=== PATIENT | female | born 1935 | race Caucasian/White ===

== ENCOUNTER → 2017-11-27 11:24 | Outpatient (CLI) | payer MEDICARE, OTHER, SELFPAY ==
[2017-11-27 12:11] LABS: International Normalized Ratio 5.2
== END ==
PROVIDERS: Physician Assistant Medical; Family Provider Internal Medicine; PCP Internal Medicine; Visit Provider Internal Medicine Cardiovascular Disease
DX: I50.21 Acute systolic (congestive) heart failure (principal)
CPT/HCPCS: 36415; 80048; 85610

== ENCOUNTER 2017-11-30 11:38 | Outpatient (RCR) | payer MEDICARE, OTHER, SELFPAY ==
[2017-11-30 12:18] LABS: Anion Gap 6 (5-15); BUN 25 mg/dL (7-18); BUN/Creat Ratio 16.2 RATIO (10-20); Calcium,Total 8.8 mg/dL (8.5-10.1); Chloride 108 mmol/L (98-107); Creatinine, Serum 1.54 mg/dL (0.55-1.02); EST Glomerular Filtration Rate 34 mL/min (>60); Est Glom Filt Rate - Afr Amer 42 mL/min (>60); Glucose 106 mg/dL (70-110); Potassium 3.9 mmol/L (3.5-5.1); Sodium Level 144 mmol/L (136-145)
[2017-11-30 12:29] LABS: International Normalized Ratio 2.6; Prothrombin Time (Protime)PT. 26.9 SECONDS (11.7-14.9)
== END 2017-11-30 11:39 | disposition home or self-care (01) ==
LOC: LAB 11:38
PROVIDERS: Family Provider Internal Medicine; PCP Internal Medicine; Visit Provider Internal Medicine Cardiovascular Disease
DX: I50.9 Heart failure, unspecified (principal); I48.91 Unspecified atrial fibrillation; Z79.01 Long term (current) use of anticoagulants
CPT/HCPCS: 36415; 80048; 85610

== ENCOUNTER → 2017-12-03 12:16 | Outpatient (CLI) | payer MEDICARE, OTHER, SELFPAY ==
[2017-12-03 12:42] VITALS: PULSE 66; PULSE 73; PULSE 74; PULSE 76; PULSE 78; PULSE 79; O2SAT 92; O2SAT 93; O2SAT 95; O2SAT 96; O2SAT 97; O2SAT 98
--- NOTE | 2017-12-04 08:45 | PCM.PSN.6M ---
PSN 6 Minute Walk Test - 6 Minute Walk Test 6 Minute Walk Test: 6 Minute Walk Test PSN:6-Minute Walk Test Start: 12/03/17 12:41 Freq: Status: Active Protocol: RESP.6MINW Document 12/03/17 12:42 FR (Rec: 12/03/17 12:45 FR [id number]) 6 Minute Walk Test Date Performed 12/03/17 Time Performed 12:30 Height 5 ft 2 in Weight: 128 lb Weight in Pounds 128.[address]: Victoria Bautista Assistive device used: None Pre-test Oxygen Delivery Method Room Air Pulse Ox (%) 98 Pulse Rate (60-100 beats/min) 66 1st minute Oxygen Delivery Method Room Air Pulse Ox (%) 96 Pulse Rate (60-100 beats/min) 76 2nd minute Oxygen Delivery Method Room Air Pulse Ox (%) 97 Pulse Rate (60-100 beats/min) 74 3rd minute Oxygen Delivery Method Room Air Pulse Ox (%) 95 Pulse Rate (60-100 beats/min) 78 4th minute Oxygen Delivery Method Room Air Pulse Ox (%) 97 Pulse Rate (60-100 beats/min) 78 5th minute Oxygen Delivery Method Room Air Pulse Ox (%) 92 Pulse Rate (60-100 beats/min) 79 6th minute Oxygen Delivery Method Room Air Pulse Ox (%) 95 Pulse Rate (60-100 beats/min) 79 Dyspnea Rima Scale (0-10) 1 Exertion Rima Scale (6-20) 8 Post-test Oxygen Delivery Method Room Air Pulse Ox (%) 93 Pulse Rate (60-100 beats/min) 73 Full Laps Walked 14 Partial Lap, Number of Tiles Walked 53 Total Distance Walked (ft) 879 - Interpretation Interpretation: The patient ambulated 879 feet over the course of 6 minutes on room air without assistive devices or breaks. Pretesting oxygen saturation was noted to be 98% on room air. With ambulation, the shyann oxygen saturation was 92%. This represents a significant exertional oxygen desaturation. - Recommendations Recommendations: There is no indication for the use of supplemental oxygen at this time. However, close interval follow-up is recommended given the degree of oxygen desaturation noted during this study.
--- NOTE | 2017-12-04 08:48 | WT_ITS ---
PSN 6 Minute Walk Test - 6 Minute Walk Test 6 Minute Walk Test: 6 Minute Walk Test PSN:6-Minute Walk Test Start: 12/03/17 12: 41 Freq: Status: Active Protocol: RESP.6MINW Document 12/03/17 12:42 FR (Rec: 12/03/17 12:45 FR [id number]) 6 Minute Walk Test Date Performed 12/03/17 Time Performed 12:30 Height 5 ft 2 in Weight: 128 lb Weight in Pounds 128.[address]: Victoria Bautista Assistive device used: None Pre-test Oxygen Delivery Method Room Air Pulse Ox (%) 98 Pulse Rate (60-100 beats/min) 66 1st minute Oxygen Delivery Method Room Air Pulse Ox (%) 96 Pulse Rate (60-100 beats/min) 76 2nd minute Oxygen Delivery Method Room Air Pulse Ox (%) 97 Pulse Rate (60-100 beats/min) 74 3rd minute Oxygen Delivery Method Room Air Pulse Ox (%) 95 Pulse Rate (60-100 beats/min) 78 4th minute Oxygen Delivery Method Room Air Pulse Ox (%) 97 Pulse Rate (60-100 beats/min) 78 5th minute Oxygen Delivery Method Room Air Pulse Ox (%) 92 Pulse Rate (60-100 beats/min) 79 6th minute Oxygen Delivery Method Room Air Pulse Ox (%) 95 Pulse Rate (60-100 beats/min) 79 Dyspnea Rima Scale (0-10) 1 Exertion Rima Scale (6-20) 8 Post-test Oxygen Delivery Method Room Air Pulse Ox (%) 93 Pulse Rate (60-100 beats/min) 73 Full Laps Walked 14 Partial Lap, Number of Tiles Walked 53 Total Distance Walked (ft) 879 - Interpretation Interpretation: The patient ambulated 879 feet over the course of 6 minutes on room air without assistive devices or breaks. Pretesting oxygen saturation was noted to be 98% on room air. With ambulation, the shyann oxygen saturation was 92%. This represents a significant exertional oxygen desaturation. - Recommendations Recommendations: There is no indication for the use of supplemental oxygen at this time. However , close interval follow-up is recommended given the degree of oxygen desaturation noted during this study.
== END ==
PROVIDERS: Family Provider Internal Medicine; PCP Internal Medicine; Visit Provider Nurse Practitioner Acute Care
DX: R06.00 Dyspnea, unspecified (principal)
CPT/HCPCS: 94618

== ENCOUNTER → 2017-12-18 07:54 | Outpatient (CLI) | payer MEDICARE, OTHER, SELFPAY ==
--- NOTE | 2017-12-19 07:42 | PFT ---
INTRODUCTION: The patient is an 82-year-old female currently under the care of Victoria Bautista NP that presents for pulmonary function testing secondary to a diagnosis of dyspnea. Respiratory therapy reports that the patient had difficulty reaching and time for the flow volume loop. Bronchodilators were used during testing. INTERPRETATION: Forced expiration spirometry demonstrates no evidence of a large airways obstructive ventilatory defect. There was no significant response to aerosolized bronchodilators, based upon strict ATS criteria. Spirograms are of poor quality and terminate prior to 6 seconds, likely underestimating FVC. Body plethysmography was performed and reveals lung volumes to be within normal limits. Diffusing capacity by single breath CO is mildly reduced at 64% of predicted. IMPRESSION: These pulmonary function studies demonstrate the presence of an isolated mild reduction in diffusing capacity. This could be related to an underlying pulmonary vascular disorder, such as pulmonary hypertension. There are no previous pulmonary function studies available for comparison. Clinical correlation is recommended.
== END ==
PROVIDERS: Family Provider Internal Medicine; PCP Internal Medicine; Visit Provider Nurse Practitioner Acute Care
DX: R06.00 Dyspnea, unspecified (principal)
CPT/HCPCS: 94060; 94726; 94729

== ENCOUNTER → 2017-12-21 13:46 | Outpatient (CLI) | payer MEDICARE, OTHER, SELFPAY ==
--- NOTE | 2017-12-21 14:00 | CT_ITS ---
STUDY: CT CHEST WITHOUT CONTRAST REASON FOR EXAM: Female, [address] of the chest. Breast cancer. RADIATION DOSAGE (If Supplied By Facility): CTDIvol = ( 6.60 ) mGy, DLP = ( 229.12 ) mGycm TECHNIQUE: Transaxial imaging was performed without the administration of intravenous contrast material. Individualized dose optimization techniques were used for this CT. COMPARISON: 10/16/2017. FINDINGS: There has been right mastectomy. In the lungs, there has been marked improvement since previous exam. In fact, there is currently no definite evidence for significant atelectasis infiltrate or effusion. There is some volume loss of the right lung which appears to be related to some fibrosis probably from previous radiation. It is seen primarily along the periphery of the upper to mid right lung. There may be minimal fibrosis in the left apex. There is suggestion of underlying COPD. Normal heart and pericardium. There are calcifications of the coronary arteries. There are multiple small lymph nodes within the mediastinum, which are normal in size and morphology most compatible with reactive lymph hyperplasia. Normal hilar regions. Normal unenhanced pulmonary arteries. Normal aorta arch and descending thoracic aorta. There are multi-level degenerative changes of the thoracic spine. There is a 7 mm nonobstructing right renal stone. CT/Chest without Contrast IMPRESSION: Essentially complete clearing of previously seen pleural effusions, infiltrates and areas of atelectasis. Currently there are some residual radiation changes of the right lung and underlying COPD. Electronically Signed: Jaiden Goetz MD at 8:05 EST , Service support ,
== END ==
PROVIDERS: Family Provider Internal Medicine; PCP Internal Medicine; Visit Provider Nurse Practitioner Acute Care
DX: R93.8 Abnormal findings on diagnostic imaging of other specified body structures (principal)
CPT/HCPCS: 71250

== ENCOUNTER 2017-12-21 14:08 | Outpatient (RCR) | payer MEDICARE, OTHER, SELFPAY ==
[2017-12-07 13:18] LABS: International Normalized Ratio 2.1; Prothrombin Time (Protime)PT. 22.8 SECONDS (11.7-14.9)
[2017-12-07 13:33] LABS: Anion Gap 6 (5-15); BUN 21 mg/dL (7-18); BUN/Creat Ratio 13.2 RATIO (10-20); Calcium,Total 8.5 mg/dL (8.5-10.1); Chloride 107 mmol/L (98-107); Creatinine, Serum 1.59 mg/dL (0.55-1.02); EST Glomerular Filtration Rate 33 mL/min (>60); Est Glom Filt Rate - Afr Amer 40 mL/min (>60); Glucose 100 mg/dL (74-106); Sodium Level 142 mmol/L (136-145)
[2017-12-21 16:34] LABS: Anion Gap 9 (5-15); BUN 24 mg/dL (7-18); BUN/Creat Ratio 13.8 RATIO (10-20); Calcium,Total 8.6 mg/dL (8.5-10.1); Chloride 106 mmol/L (98-107); Creatinine, Serum 1.74 mg/dL (0.55-1.02); EST Glomerular Filtration Rate 30 mL/min (>60); Est Glom Filt Rate - Afr Amer 36 mL/min (>60); Glucose 117 mg/dL (74-106); Potassium 3.8 mmol/L (3.5-5.1); Sodium Level 143 mmol/L (136-145)
[2017-12-21 16:35] LABS: Prothrombin Time (Protime)PT. 34.3 SECONDS (11.7-14.9)
[2017-12-21 16:57] LABS: International Normalized Ratio 3.6
== END 2017-12-21 14:35 | disposition home or self-care (01) ==
LOC: LAB 14:08
PROVIDERS: Physician Assistant Medical; Family Provider Internal Medicine; PCP Internal Medicine; Visit Provider Internal Medicine Cardiovascular Disease
DX: R93.8 Abnormal findings on diagnostic imaging of other specified body structures (principal); I50.9 Heart failure, unspecified; I48.91 Unspecified atrial fibrillation; Z79.01 Long term (current) use of anticoagulants
CPT/HCPCS: 36415; 71250; 80048; 85610

== ENCOUNTER 2018-01-29 13:10 | Outpatient (RCR) | payer MEDICARE, OTHER, SELFPAY ==
[2017-12-31 16:11] LABS: Prothrombin Time (Protime)PT. 31.2 SECONDS (11.7-14.9)
[2018-01-15 11:51] LABS: International Normalized Ratio 1.9; Prothrombin Time (Protime)PT. 21.5 SECONDS (11.7-14.9)
[2018-01-29 15:01] LABS: International Normalized Ratio 2.1; Prothrombin Time (Protime)PT. 23.6 SECONDS (11.7-14.9)
== END 2018-01-29 14:00 | disposition home or self-care (01) ==
LOC: LAB 13:10
PROVIDERS: Family Provider Internal Medicine; PCP Internal Medicine; Visit Provider Internal Medicine Cardiovascular Disease
DX: I50.9 Heart failure, unspecified (principal); R93.8 Abnormal findings on diagnostic imaging of other specified body structures; I48.91 Unspecified atrial fibrillation; Z79.01 Long term (current) use of anticoagulants
CPT/HCPCS: 36415; 85610

== ENCOUNTER → 2018-02-01 16:05 | Outpatient (CLI) | payer MEDICARE, OTHER, SELFPAY | PROVIDERS: Visit Provider Obstetrics & Gynecology | DX: N39.0 Urinary tract infection, site not specified (principal) | CPT/HCPCS: 87086; 87088 ==

== ENCOUNTER 2018-02-15 11:05 | Outpatient (RCR) | payer MEDICARE, OTHER, SELFPAY ==
[2018-02-15 11:21] LABS: Prothrombin Time Fingerstick 25.2 SEC (11.9-14.4)
== END 2018-02-15 12:00 | disposition home or self-care (01) ==
LOC: LAB 11:05
PROVIDERS: Family Provider Internal Medicine; PCP Internal Medicine; Visit Provider Internal Medicine Cardiovascular Disease
DX: I48.91 Unspecified atrial fibrillation (principal); Z79.01 Long term (current) use of anticoagulants
CPT/HCPCS: 36416; 85610

== ENCOUNTER 2018-03-22 16:59 | Emergency (ER) | payer MEDICARE, OTHER, SELFPAY ==
[2018-03-22 17:00] VITALS: BP 125/68; PULSE 62; RESP 16; TEMP 36.7; O2SAT 97; BMI 24.5
--- NOTE | 2018-03-22 17:12 | CT_ITS ---
STUDY: CT CERVICAL SPINE WITHOUT CONTRAST REASON FOR EXAM: Female, 82 years old. Head injury RADIATION DOSAGE (If Supplied By Facility): CTDIvol = ( 14.72 ) mGy, DLP = ( 305.96 ) mGycm TECHNIQUE: High resolution transaxial imaging was performed without contrast material. Sagittal and coronal images were reconstructed. Individualized dose optimization techniques were used for this CT. COMPARISON: None FINDINGS: Normal craniovertebral junction. There are degenerative changes of the anterior atlantoaxial articulation. There are degenerative changes of the odontoid process. Normal cervical lordosis. There is diffuse endplate spondylosis of the cervical spine. There is a 2 mm anterior subluxation of C4 relative to C3 and C5. C2-3: Disc spacing is normal. There are degenerative facet changes on the left. There is mild left foraminal narrowing. There is no central canal stenosis. C3-4: There is severe disc space narrowing. There are mild bilateral hypertrophic facet changes. There is mild bilateral spinal foraminal narrowing. There is no central canal stenosis. C4-5: There are bilateral hypertrophic degenerative facet changes. There is moderately severe disc space narrowing. There is mild bilateral spinal foraminal narrowing. There is no central canal stenosis. C5-6: There is severe disc space narrowing. There are bilateral hypertrophic degenerative facet changes. There is moderately severe bilateral spinal foraminal narrowing. There is no central canal stenosis. C6-7: There is severe disc space narrowing. There are bilateral degenerative facet changes. There is moderately severe bilateral spinal foraminal narrowing. There is no central canal stenosis. C7-T1: Disc spacing is normal. There are mild bilateral degenerative facet changes. There is no central canal or foraminal stenosis. Normal visualized soft tissue structures. CT/Spine Cervical without Contras IMPRESSION: Multilevel degenerative changes, as described above. 2 mm anterior subluxation of C4 relative to C3 and C5. Electronically Signed: Donato Culp MD at 18:06 EDT , Service support ,
--- NOTE | 2018-03-22 17:12 | CT_ITS ---
STUDY: CT BRAIN WITHOUT CONTRAST REASON FOR EXAM: Female, 82 years old. Trauma RADIATION DOSAGE (If Supplied By Facility): CTDIvol = ( 44.99 ) mGy, DLP = ( 779.24 ) mGycm TECHNIQUE: Transaxial CT imaging of the brain was performed without administration of intravenous contrast material. Individualized dose optimization techniques were used for this CT. COMPARISON: Prior study of June 03, 2013 FINDINGS: There is a left frontal scalp hematoma. Normal calvarium. Normal size ventricles and extra-axial spaces for the patient's age. There are areas of decreased attenuation within the white matter tracts of the supratentorial brain, consistent with microvascular disease changes. There is an old lacunar infarct of the right insular lobe. Normal basal ganglia and thalami. Normal brainstem. There is mild cerebellar atrophy. There is no intracranial hemorrhage. There are no findings of an acute ischemic infarction. Normal visualized paranasal sinuses. CT/Brain/Head without Contrast IMPRESSION: 1. Left frontal scalp hematoma. 2. 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 3. Areas of decreased attenuation within the white matter tracts of the supratentorial brain consistent with microvascular disease changes. 4. Mild cerebellar atrophy. 5. There is no intracranial hemorrhage or calvarial fracture. Electronically Signed: Donato Culp MD at 18:16 EDT , Service support ,
[2018-03-22 17:42] VITALS: O2SAT 97
--- NOTE | 2018-03-22 17:45 | ED.RN ---
ABRASION TO LEFT UPPER ARM. NO BLEEDING NOTED.
[2018-03-22 18:35] LABS: International Normalized Ratio 1.6; Prothrombin Time (Protime)PT. 19.2 SECONDS (11.7-14.9)
--- NOTE | 2018-03-22 19:06 | ED.DCSUM_ITS ---
- ER Visit Summary Date of Service: 03/22/18 Chief Complaint: Head injury History of Present Illness: The patient is a 82 F who presents with a head injury. She states that she was carrying a heavy potted plant when she fell in the parking lot. She hit the front left side of her head. She denies any dizziness lightheadedness headache or nausea. She is on warfarin due to a history of atrial fibrillation. She complains of mild pain directly at the site of the head injury rather than headache. She denies any other injuries or any other pain. Physical Examination: Afebrile vitals are normal There is a left forehead hematoma Heart is regular rate and rhythm Lungs are clear Neck is nontender Abdomen soft Active full range of motion ?4 extremities GCS of 15 with no focal or lateralizing neurological deficits Test Results: CT of the head shows a left frontal scalp hematoma and an old lacunar infarct atrophy and chronic changes but no acute intracranial hemorrhage. CT of the cervical spine shows degenerative changes and 2 mm of anterior cervical subluxation at C4. INR 1.6 Emergency Department Course and Treatment: Patient's wound was cleansed and dressed. There is an abrasion over the hematoma but no laceration requiring wound closure. I did speak to radiology regarding the anterior cervical subluxation. This was not felt to be traumatic and is likely related to the associated degenerative changes. She has no cervical tenderness. She was advised on supportive care. She was instructed on specific signs and symptoms to monitor for and conditions under which to return to the emergency department. She was advised to follow-up with her primary care physician and was discharged home. Treatment Plan: [] Disposition: Discharge Impression: Closed head injury This note was generated with [employer] dictation software. It may contain incorrect words, spelling, and punctuation that were not noted in review of the chart prior to signing ED Disposition - Plan for ED Patient: Chief Complaint: Head Injury Referrals: Ben Loomis MD [Primary Care Provider] -
--- NOTE | 2018-03-22 19:06 | ED.DEP ---
ED Disposition - Plan for ED Patient: Chief Complaint: Head Injury Instructions: ED Head Injury Closed Referrals: Ben Loomis MD [Primary Care Provider] -
[2018-03-22 19:28] VITALS: PULSE 60; RESP 18; O2SAT 97
== END 2018-03-22 19:29 | disposition home or self-care (01) ==
PROVIDERS: Emergency Provider Emergency Medicine; Family Provider Internal Medicine; PCP Internal Medicine
DX: S00.03XA Contusion of scalp, initial encounter (principal); W18.30XA Fall on same level, unspecified, initial encounter; Y93.01 Activity, walking, marching and hiking; Y92.481 Parking lot as the place of occurrence of the external cause; I48.91 Unspecified atrial fibrillation; I11.0 Hypertensive heart disease with heart failure; I50.9 Heart failure, unspecified; G47.33 Obstructive sleep apnea (adult) (pediatric); Z85.3 Personal history of malignant neoplasm of breast; Z79.82 Long term (current) use of aspirin; Z79.01 Long term (current) use of anticoagulants; Z79.899 Other long term (current) drug therapy
CPT/HCPCS: 70450; 72125; 85610; 99284

== ENCOUNTER → 2018-03-26 13:38 | Outpatient (CLI) | payer MEDICARE, OTHER, SELFPAY ==
--- NOTE | 2018-03-26 13:40 | ECHOD_ITS ---
Reason For Study: Dyspnea/SOB Procedure This was a 2D Doppler, Color Flow transthoracic echocardiogram. Exam performed in department. Left Ventricle Moderately dilated left ventricle. Severe global left ventricular systolic dysfunction. The estimated ejection fraction is 25 %. There is evidence of diastolic dysfunction. Mid-Anterior : Hypokinetic. Mid-Lateral : Hypokinetic. Mid-Posterior: Hypokinetic. Mid-Inferior: Hypokinetic. Mid- inferoseptal : Hypokinetic. Mid-anteroseptal : Hypokinetic. [place] : Hypokinetic. Right Ventricle Normal RV size. Normal systolic function. Atria Normal left atrium. Normal right atrium. No doppler evidence for ASD. Mitral Valve There is no mitral annular calcification. Mild diffuse mitral valve thickening. Moderate (2+) mitral valve insufficiency. Tricuspid Valve Normal tricuspid valve. Moderate (2+) tricuspid valve insufficiency. Right ventricular systolic pressure estimated to be 45 mmHg. Aortic Valve Trisinus/trileaflet aortic valve. Mild focal aortic valve calcification. Mild-Moderate (1-2+) aortic valve insufficiency. Pulmonic Valve The pulmonic valve is not well visualized. Trivial pulmonic valve insufficiency. Great Vessels Normal sized aortic root. Calcified aortic root. Pericardium/Pleural No pericardial effusion. MMode/2D Measurements & Calculations LVIDd: 5.7 cm IVSd: 1.1 cm Ao root diam: 3.3 cm LVIDs: 4.7 cm LVPWd: 0.87 cm LA dimension: 4.0 cm RVDd: 3.8 cm FS: 18.2 % LAV(MOD-bp): 43.5 ml LA A4 area: 11.7 cm2 RA A4 area: 15.8 cm2 LAV(MOD-bp) Indexed: 27.1 ml/m2 LAV(MOD-sp2): 48.8 ml LAV(MOD-sp4): 28.5 ml Doppler Measurements & Calculations MV E max eliel: 88.4 cm/sec Lat Peak E' Eliel: 3.0 cm/sec Med Peak E' Eliel: 3.4 cm/sec MV A max eliel: 65.8 cm/sec E/E' lat: 29.8 E/E' med: 26.4 MV E/A: 1.3 Ao V2 max: 119.3 cm/sec AI max eliel: 353.1 cm/sec LV V1 max: 73.2 cm/sec Ao max P.7 mmHg AI max P.9 mmHg LV V1 max P.1 mmHg Ao V2 mean: 83.0 cm/sec AI dec slope: 177.3 cm/sec2 Ao mean P.0 mmHg AI P1/2t: 583.2 msec Ao V2 VTI: 26.2 cm PA V2 max: 71.6 cm/sec TR max eliel: 322.9 cm/sec TR max P.7 mmHg Interpretation Summary Moderately dilated left ventricle. Severe global left ventricular systolic dysfunction. The estimated ejection fraction is 25 %. Mild diffuse mitral valve thickening. Moderate (2+) mitral valve insufficiency. Moderate (2+) tricuspid valve insufficiency. Mild focal aortic valve calcification. Mild-Moderate (1-2+) aortic valve insufficiency. Trivial pulmonic valve insufficiency. Calcified aortic root. Right ventricular systolic pressure estimated to be 45 mmHg. There is evidence of diastolic dysfunction. Ordering Physician: Gary Bullard Referring Physician: Ben Loomis M.D. Performed By: Katharina Mancia, FELICITAS, RVT
== END ==
PROVIDERS: Family Provider Internal Medicine; PCP Internal Medicine; Visit Provider Internal Medicine Cardiovascular Disease
DX: R06.00 Dyspnea, unspecified (principal)
CPT/HCPCS: 93306

== ENCOUNTER 2018-03-31 11:23 | Outpatient (RCR) | payer MEDICARE, OTHER, SELFPAY ==
[2018-03-11 11:26] LABS: Prothrombin Time Fingerstick 19.5 SEC (11.9-14.4)
[2018-03-31 11:36] LABS: Prothrombin Time Fingerstick 21.2 SEC (11.9-14.4)
== END 2018-03-31 12:00 | disposition home or self-care (01) ==
LOC: LAB 11:23
PROVIDERS: Family Provider Internal Medicine; PCP Internal Medicine; Visit Provider Internal Medicine Cardiovascular Disease
DX: I48.91 Unspecified atrial fibrillation (principal); Z79.01 Long term (current) use of anticoagulants
CPT/HCPCS: 36416; 85610

== ENCOUNTER 2018-04-22 12:17 | Outpatient (RCR) | payer MEDICARE, OTHER, SELFPAY | END 2018-04-22 13:00 | disposition home or self-care (01) | LOC: LAB 12:17 | PROVIDERS: Family Provider Internal Medicine; PCP Internal Medicine; Visit Provider Internal Medicine Cardiovascular Disease | DX: I48.91 Unspecified atrial fibrillation (principal); Z79.01 Long term (current) use of anticoagulants | CPT/HCPCS: 36416; 85610 ==

== ENCOUNTER 2018-05-28 13:37 | Outpatient (RCR) | payer MEDICARE, OTHER, SELFPAY ==
[2018-05-10 14:36] LABS: Prothrombin Time Fingerstick 30.4 SEC (11.9-14.4)
[2018-05-28 14:06] LABS: Prothrombin Time Fingerstick 19.6 SEC (11.9-14.4)
== END 2018-05-28 15:00 | disposition home or self-care (01) ==
LOC: LAB 13:37
PROVIDERS: Family Provider Internal Medicine; PCP Internal Medicine; Visit Provider Internal Medicine Cardiovascular Disease
DX: I48.91 Unspecified atrial fibrillation (principal); Z79.01 Long term (current) use of anticoagulants
CPT/HCPCS: 36416; 85610

== ENCOUNTER 2018-06-25 13:19 | Outpatient (RCR) | payer MEDICARE, OTHER, SELFPAY ==
[2018-06-25 13:30] LABS: Prothrombin Time Fingerstick 28.1 SEC (11.9-14.4)
== END 2018-06-25 15:00 | disposition home or self-care (01) ==
LOC: LAB 13:19
PROVIDERS: Family Provider Internal Medicine; PCP Internal Medicine; Visit Provider Internal Medicine Cardiovascular Disease
DX: I48.91 Unspecified atrial fibrillation (principal); Z79.01 Long term (current) use of anticoagulants
CPT/HCPCS: 36416; 85610

== ENCOUNTER → 2018-07-23 12:01 | Outpatient (CLI) | payer MEDICARE, OTHER, SELFPAY ==
[2018-07-23 13:43] LABS: International Normalized Ratio 2.1; Prothrombin Time (Protime)PT. 23.5 SECONDS (11.7-14.9)
[2018-07-23 14:02] LABS: Anion Gap 6 (5-15); BUN 24 mg/dL (7-18); Calcium,Total 8.9 mg/dL (8.5-10.1); Chloride 107 mmol/L (98-107); Creatinine, Serum 1.72 mg/dL (0.55-1.02); EST Glomerular Filtration Rate 30 mL/min (>60); Est Glom Filt Rate - Afr Amer 37 mL/min (>60); Glucose 90 mg/dL (74-106); Magnesium 2.3 mg/dL (1.6-2.6); Potassium 4.5 mmol/L (3.5-5.1); Sodium Level 141 mmol/L (136-145)
== END ==
PROVIDERS: Family Provider Internal Medicine; PCP Internal Medicine; Visit Provider Internal Medicine Cardiovascular Disease
DX: I50.22 Chronic systolic (congestive) heart failure (principal); I43 Cardiomyopathy in diseases classified elsewhere
CPT/HCPCS: 36415; 80048; 83735; 85610

== ENCOUNTER → 2018-08-13 13:24 | Outpatient (CLI) | payer MEDICARE, OTHER, SELFPAY ==
--- NOTE | 2018-08-13 13:26 | CT_ITS ---
STUDY: CT ABDOMEN AND PELVIS WITHOUT CONTRAST REASON FOR EXAM: Female, 82 years old. Kidney stones RADIATION DOSAGE (If Supplied By Facility): CTDIvol = ( 7.35 ) mGy, DLP = ( 379.91 ) mGycm TECHNIQUE: Transaxial images were obtained from the dome of the diaphragm to the symphysis pubis without oral contrast, and without intravenous contrast. Sagittal and coronal images were reconstructed. Individualized dose optimization techniques were used for this CT. COMPARISON: None. FINDINGS: The lung bases are clear. The liver is normal. No dilated intrahepatic biliary radicles. The gallbladder is normal with no calcifications within it. There is no pericholecystic fluid collection or streakiness The spleen is normal. The pancreas is normal. Both adrenals are normal. A 5.8 mm right upper pole calyceal calculus. An 8.9 and 3.6 mm left calyceal calculi. No renal masses and no perirenal stranding The stomach is normal. There is no bowel distention, acute appendicitis or diverticulitis. No constricting lesions are seen in large bowel. The abdominal wall is intact with no hernias. There is no ascites or any free intraperitoneal air. No indication of epiploic appendagitis The vascular structures in the retroperitoneum are normal. There is no retrocrural, retroperitoneal or mesenteric adenopathy. There is a lumbar scoliosis with convexity to the left with degenerative changes at L3-4. The urinary bladder is normal. The uterus is normal--. There is no inguinal or pelvic adenopathy. There is no inguinal hernia. . CT/Abdomen/Pelvis without Cont IMPRESSION: No acute findings in the abdomen or pelvis. Specifically there is no acute appendicitis or diverticulitis. A 5.8 mm right upper pole calyceal calculus. An 8.9 and 3.6 mm calculi in the left upper and lower poles respectively. A mild lumbar scoliosis with convexity to the left and disc disease at L3-4 Electronically Signed: Jarod Dennis MD at 5:10 EDT Tel , Service support ,
== END ==
PROVIDERS: Family Provider Internal Medicine; PCP Internal Medicine; Referring Provider Urology; Visit Provider Urology
DX: N20.0 Calculus of kidney (principal)
CPT/HCPCS: 74176

== ENCOUNTER 2018-08-26 14:46 | Outpatient (RCR) | payer MEDICARE, OTHER, SELFPAY ==
[2018-08-26 15:06] LABS: Prothrombin Time Fingerstick 28.9 SEC (11.9-14.4)
== END 2018-08-26 16:00 | disposition home or self-care (01) ==
LOC: LAB 14:46
PROVIDERS: Family Provider Internal Medicine; PCP Internal Medicine; Visit Provider Internal Medicine Cardiovascular Disease
DX: I48.91 Unspecified atrial fibrillation (principal); Z79.01 Long term (current) use of anticoagulants
CPT/HCPCS: 36416; 85610

== ENCOUNTER 2018-09-22 11:27 | Outpatient (RCR) | payer MEDICARE, OTHER, SELFPAY ==
[2018-09-22 11:50] LABS: Prothrombin Time Fingerstick 25.3 SEC (11.9-14.4)
== END 2018-10-01 10:37 | disposition home or self-care (01) ==
LOC: LAB 11:27
PROVIDERS: Family Provider Internal Medicine; PCP Internal Medicine; Referring Provider Internal Medicine Cardiovascular Disease; Visit Provider Internal Medicine Cardiovascular Disease
DX: I48.91 Unspecified atrial fibrillation (principal); Z79.01 Long term (current) use of anticoagulants
CPT/HCPCS: 36416; 85610

== ENCOUNTER 2018-10-06 17:21 | Inpatient (IN) | payer MEDICARE, OTHER, SELFPAY ==
[2018-10-06 17:22] VITALS: BP 146/70; PULSE 59; PULSE 79; RESP 16; TEMP 36.7; O2SAT 93; BMI 24.7
--- NOTE | 2018-10-06 17:44 | CT_ITS ---
STUDY: CT BRAIN WITHOUT CONTRAST REASON FOR EXAM: Female, 83 years old. Confusion RADIATION DOSAGE (If Supplied By Facility): CTDIvol = ( 44.99 ) mGy, DLP = ( 745.49 ) mGycm TECHNIQUE: Transaxial CT imaging of the brain was performed without administration of intravenous contrast material. Individualized dose optimization techniques were used for this CT. COMPARISON: 03/22/2018 FINDINGS: Normal soft tissue structures. Normal calvarium. There is mild cerebral atrophy with widening of the extra-axial spaces and ventricular dilatation. There are areas of decreased attenuation within the white matter tracts of the supratentorial brain, consistent with microvascular disease changes. Normal basal ganglia and thalami. Normal brainstem. Normal cerebellum. There is no intracranial hemorrhage. There are no findings of an acute ischemic infarction. Normal visualized paranasal sinuses. CT/Brain/Head without Contrast IMPRESSION: Chronic involutional changes of the brain. Electronically Signed: Devon Pittman MD at 18:24 EST , Service support ,
--- NOTE | 2018-10-06 17:48 | EKG12_ITS ---
Test Reason : CONFUSION Blood Pressure : / mmHG Vent. Rate : 054 BPM Atrial Rate : 055 BPM P-R Int : 000 ms QRS Dur : 162 ms QT Int : 506 ms P-R-T Axes : 000 -47 134 degrees QTc Int : 479 ms Sinus bradycardia Left axis deviation Left bundle branch block Abnormal ECG Confirmed by JOSH PARADA, DAVID ([id number]), video effects editor TRACY MINOR ([id number]) on 10/08/2018 2:38:20 PM Referred By: JULIETH Confirmed By:DAVID MORENO MD
--- NOTE | 2018-10-06 18:09 | RAD_ITS ---
STUDY: X-RAY CHEST REASON FOR EXAM: Female, 83 years old. Confusion TECHNIQUE: PA and lateral views of the chest. COMPARISON: 11/05/2017 FINDINGS: EKG leads overlie the chest The lungs are clear and expanded. There is no demonstrated pleural abnormality. Normal size heart. Normal mediastinum and adithya. Normal visualized pulmonary arteries. Normal visualized aortic arch and descending thoracic aorta. There are diffuse degenerative changes of the visualized thoracic spine. There is degenerative osteoarthritis of the bilateral shoulders. There is no demonstrated abnormality of the visualized soft tissue structures of the upper abdomen. RAD/Chest PA and Lateral IMPRESSION: No acute pulmonary process Electronically Signed: Devon Pittman MD at 18:32 EST , Service support ,
[2018-10-06 18:26] LABS: Absolute Lymphocyte Count 1.11 X10^3/ul (0.83-4.51); Absolute Neutrophil Count 6.2 X10^3/uL (2.0-7.7); Basophil# 0.03 X10^3/uL; Basophil% 0.4 % (0-1); Eosinophil# 0.18 X10^3/uL; Eosinophils% 2.2 % (0-5); Hematocrit 42.4 % (37-47); Hemoglobin 13.9 g/dl (12.0-15.0); Lymphocyte # 1.11 X10^3/ul (4.0); Lymphocyte % 13.6 % (19-41); Mean Corp Hgb Conc 32.8 g/gl (32-36); Mean Corpuscular Hgb 32.6 pg (27.0-32.0); Mean Corpuscular Volume 99.5 fL (81-99); Mean Platelet Vol. 11.9 fl (6.2-12.0); Monocyte# 0.68 X10^3/uL; Monocyte% 8.3 % (0-10); Neutrophil # 6.15 X10^3/uL (2.7-7.7); Neutrophil % 75.4 % (47-70); Platelet Count 199 K/mm3 (150-450); RBC Distribution Width SD 50.2 fl (35.1-43.9); Red Blood Count 4.26 M/mm3 (4.2-5.4); White Blood Count 8.2 K/mm3 (4.4-11.0)
[2018-10-06 18:27] LABS: POSITIVE DIFFERENTIAL NO
[2018-10-06 18:28] LABS: POSITIVE COUNT NO; POSITIVE MORPHOLOGY NO
[2018-10-06 19:24] LABS: Anion Gap 5 (5-15); BUN 27 mg/dL (7-18); BUN/Creat Ratio 15.3 RATIO (10-20); Calcium,Total 8.8 mg/dL (8.5-10.1); Chloride 106 mmol/L (98-107); Creatinine, Serum 1.76 mg/dL (0.55-1.02); EST Glomerular Filtration Rate 30 mL/min (>60); Est Glom Filt Rate - Afr Amer 36 mL/min (>60); Estimated Creatinine Clearance 19.83 ml/min; Glucose 92 mg/dL (74-106); Potassium 4.3 mmol/L (3.5-5.1); Sodium Level 141 mmol/L (136-145)
[2018-10-06 19:25] LABS: Mucous, Urine 0 SEEN /hpf (<or=2+); Red Blood Cells-Urine 0 SEEN /hpf (0-5); Squamous Epithelial Cells - UA 0 SEEN /hpf (5-10)
[2018-10-06 19:56] LABS: Glucose, Dipstick Normal (Normal); Ketone-Dipstick Negative (Negative); Leukocyte Esterase-Dipstick 100 /ul (Negative); Nitrite-Dipstick Positive (Negative); Occult Blood-Urine 10 /ul (Negative); Protein-Dipstick 30 mg/dl (Negative); Urine Bilirubin Dipstick Negative (Negative); Urine Clarity Clear (Clear); Urine Urobilinogen Normal (Normal)
[2018-10-06 20:03] LABS: Color, Urine SEE COMMENT BELOW (Yellow)
[2018-10-06 20:08] VITALS: BP 147/73; PULSE 56; RESP 12; O2SAT 97
[2018-10-06 20:09] LABS: Bacteria RARE /hpf (None Seen); White Blood Cells 0-5 SEEN /hpf (0-5)
[2018-10-06 20:40] LABS: International Normalized Ratio 1.1
--- NOTE | 2018-10-06 20:44 | ED.VISSUMM ---
- ER Visit Summary Date of Service: 10/06/18 Chief Complaint: Confusion History of Present Illness: The patient is a [address] Bullard and Dr. Loomis. reports that she has confusion that began today. States that at 10:00 this morning she was difficult to arouse. He question whether she may have taken an extra dose of oxycodone last night. She is remaining confused throughout the day. He reports that she has a expressive aphasia since 3:00 that has progressively gotten worse. She has never had this previously. Patient has been off her Coumadin for the past 4 days for a dental procedure that is scheduled for tomorrow. She denies any fever or chills. No chest pain, cough, shortness of breath. No abdominal pain, nausea, vomiting, or diarrhea. She has had frequent urination, but no dysuria. No rash or headache. Patient denies weakness. She reports that she has paresthesias to her chin. Physical Examination: Vitals: Stable. Afebrile. General: Well-nourished and well-developed. Head: Normocephalic atraumatic. Neck: Supple, no lymphadenopathy. No JVD. Nontender. Cardiovascular: Regular rate and rhythm. No murmurs. Respiratory: No respiratory distress. Clear to auscultation bilaterally. Abdominal: Soft, nontender, nondistended, normal bowel sounds. No guarding, rebound, or peritoneal signs. Back: Nontender. Extremities: Nontender, no edema. Skin: Normal color, no rash. Neurologic: Alert and oriented ?3. Cranial nerves II through XII are intact. Normal strength and sensation. NIH scale is 1 for an expressive aphasia. Psych: Normal affect. Test Results: EKG is A. fib at 54 with a left bundle branch block. Its unchanged from November of this year. CBC is more for segment neutrophils 75 and lymphocytes 14. Chem-7 is more for BUN of 27 creatinine 1.76. Cath UA shows nitrite positive with rare bacteria. Chest x-ray shows no acute disease. CT brain shows chronic changes. INR is 1.1. Emergency Department Course and Treatment: Patient is not a TPA candidate due to an unclear time frame from this. Also, she is confused and I question whether her expressive aphasia is somewhat from a delirium. Her urine was sent for culture and she was given Cipro IV. Treatment Plan: Patient was discussed with Dr. Amezquita. She will be admitted the hospital for further relation and treatment. Disposition: Admitted in stable condition. Impression: 1. Confusion. 2. Expressive aphasia. 3. Nitrite positive urine. 4. Subtherapeutic INR. 5. Atrial fibrillation. This note was generated with [employer] dictation software. It may contain incorrect words, spelling, and punctuation that were not noted in review of the chart prior to signing ED Disposition - Plan for ED Patient: Chief Complaint: Confusion Referrals: Ben Loomis MD [Primary Care Provider] -
[2018-10-06] MEDS: Ciprofloxacin 400 MG/200 ML BAG 200 MG IV (21:11)
[2018-10-06] MEDS: DiphenhydrAMINE 50 MG/ML Syringe 25 MG IV (22:16)
--- NOTE | 2018-10-06 22:21 | ED.RN ---
REDDENED AREA NOTED ON LFA ABOVE IV SITE, DOES NOT APPEAR RELATED TO IV, IV NOTED TO HAVE GOOD BLOOD RETURN, FLUSHES EASILY. AWARE, CIPRO STOPPED, BENADRYL GIVEN.
[2018-10-06 22:33] VITALS: BMI 25.8
[2018-10-06 22:55] VITALS: PULSE 60
[2018-10-06 23:00] VITALS: PULSE 62; O2SAT 96
--- NOTE | 2018-10-06 23:05 | PCM.HP.STD ---
Problem List (1) Aphasia Status: Acute (2) Altered mental status Status: Acute Qualifiers: Altered mental status type: disorientation Qualified Code(s): R41.0 - Disorientation, unspecified (3) Subtherapeutic international normalized ratio (INR) Status: Acute (4) Cardiomyopathy in diseases classified elsewhere Status: Chronic Comment: last ECHO with a 25% EF (5) Secondary pulmonary arterial hypertension Status: Chronic (6) Nonrheumatic aortic valve insufficiency Status: Chronic (7) Nonrheumatic mitral (valve) insufficiency Status: Chronic (8) Non-rheumatic tricuspid valve insufficiency Status: Chronic (9) Paroxysmal atrial fibrillation Status: Chronic (10) Chronic systolic (congestive) heart failure Status: Chronic (11) Dyspnea Status: Chronic Qualifiers: Dyspnea type: shortness of breath Qualified Code(s): R06.02 - Shortness of breath; R06.00 - Dyspnea, unspecified; R06.01 - Orthopnea (12) Abnormal CT of the chest Status: Chronic (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 (14) Hypertension Status: Chronic Qualifiers: Hypertension type: essential hypertension Qualified Code(s): I10 - Essential (primary) hypertension (15) Central sleep apnea Status: Chronic History of Present Illness Date of Admission: 10/06/18 Chief Complaint: trouble getting her speech out and confusion The patient is a 83 year old F with a PMH of CM with a 25% EF, HTN, PAF, chronic anticoagulation with Warfarin, central sleep apnea, chronic rectal pain, vaginal burning, back pain and R anterior thigh pain who was brought to the ER at [facility] on 10/06/18 with complaints of confusion, somnolence and difficulty getting her words out. She was very sleepy when she awoke this morning and seemed somewhat confused and her thought that perhaps she had taken extra Percocet the preceding night. She takes Percocet twice daily for rectal pain. She also takes Soma at bedtime. As the day progressed she did not improve and in fact she had difficulty with word finding and was disoriented in her own house which is unusual. Her who is a retired technical healthcare consultant tells me that over the past few years her short-term memory has declined. She also has developed some dystonic movements of her hands, upper extremities and face. He states she has never had any seizures. She has seen a few different neurologists and no diagnosis has ever been given. Recently she has had several falls and seems to lose her balance easily. He states her gait has been more broad-based. Vital signs at presentation to the emergency room were temperature 98.1, pulse rate 79, blood pressure 146/70, respiratory rate 16 and she is 93-97% saturated on room air. Hemoglobin is 13.9 but she is somewhat dehydrated. MCV is increased at 99.5 but the RDW was normal. Platelets are normal. Her INR is 1.1 and recently her Coumadin has been held for a dental procedure which was to have been done on 10/07/2018. Electrolytes are within normal limits and the BUN is 27 with a creatinine of 1.76 which is up from 1. To [address] November 07[address] scan of the brain, unenhanced, showed chronic involutional changes only with no acute findings. There is white matter disease present secondary to microvascular disease. Chest x-ray shows no infiltrates, pulmonary vascular congestion or pleural effusions. Past Medical History Past Medical History (Chronic Problems): Chronic Problems (Last Reviewed 07/23/18 @ 11:40 by Gary Bullard MD) 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) last ECHO with a 25% EF Secondary pulmonary arterial hypertension (Chronic) Nonrheumatic aortic valve insufficiency (Chronic) Nonrheumatic mitral (valve) insufficiency (Chronic) Non-rheumatic tricuspid valve insufficiency (Chronic) Paroxysmal atrial fibrillation (Chronic) Chronic systolic (congestive) heart failure (Chronic) Dyspnea (Chronic) Abnormal CT of the chest (Chronic) [facility] (current) use of anticoagulants (Chronic) Hypertension (Chronic) Central sleep apnea (Chronic) Medical History: Medical History (Last Reviewed 10/07/18 @ 01:51 by Caitie Amezquita DO) 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) I43 last ECHO with a 25% EF Secondary pulmonary arterial hypertension (Chronic) I27.21 Nonrheumatic aortic valve insufficiency (Chronic) I35.1 Nonrheumatic mitral (valve) insufficiency (Chronic) I34.0 Non-rheumatic tricuspid valve insufficiency (Chronic) I36.1 Paroxysmal atrial fibrillation (Chronic) I48.0 Chronic systolic (congestive) heart failure (Chronic) I50.22 [facility] (current) use of anticoagulants (Chronic) Z79.01 Hypertension (Chronic) I10 Central sleep apnea (Chronic) G47.31 Anxiety and depression F41.9, F32.9 Joint pain M25.50 Acute systolic CHF (congestive heart failure) (Resolved) I50.21 Atrial fibrillation with RVR (Resolved) I48.91 Breast cancer C50.919 History of breast cancer (Resolved) Z85.3 Rectal pain (Resolved) K62.89 Joint pain (Inactive) M25.50 Allergies Penicillins [PCN] Allergy (Verified 03/05/18 10:33) Rash Home Medications: Ambulatory Orders Medication Instructions Recorded Calcium Citrate/Vitamin D3 315 ea PO TIDCM 01/05/17 [Calcium Citrate - Vit D Caplet] Carvedilol [Coreg (Beta Kori)] 6.25 mg PO BID 01/05/17 Celecoxib [Celebrex] 200 mg PO DAILY 01/05/17 Cholecalciferol (Vitamin D3) 2,000 unit PO DAILY 01/05/17 [Vitamin D3] Paroxetine Mesylate [Brisdelle] 7.5 mg PO DAILY 01/05/17 multivitamin tablet 1 tab PO QDAY 03/05/18 psyllium husk (with sugar) 3.4 2 tsp PO DAILY g 03/05/18 gram/12 gram oral powder warfarin 2.5 mg tablet 1.25 mg PO DAILY 03/31/18 potassium chloride ER 10 mEq 10 meq PO DAILYCM #90 tab 07/21/18 tablet,extended release(part/cryst) oxycodone 5 mg tablet 5 mg PO BID tab 07/23/18 furosemide 40 mg tablet 40 mg PO SUTUTHSA #60 tab 09/27/18 Albuterol Sulfate [Ventolin Hfa] 1 puff INHALATION TID 10/06/18 Amiodarone HCl [Cordarone] 200 mg PO DAILY 10/06/18 Aspirin E.C. [Ecotrin] 81 mg PO DAILY 10/06/18 Carisoprodol 350 mg PO QHS 10/06/18 Dymista 1 puff NASAL BID 10/06/18 Magnesium Oxide [Mag-Ox 400] 400 mg PO QHS 10/06/18 [place]/Sod Phos/Mblue/Hyoscy 1 tab PO 4X/DAY 10/06/18 [Urogesic-Blue Tablet] Surgical History: Surgical History (Last Reviewed 10/07/18 @ 01:51 by ELIGIO Odell H/O right mastectomy Z90.11 History of right mastectomy (Resolved) Z98.890, Z90.11 Surgical History: appendectomy, - - Lumpectomy, tubal ligation, right breast mass biopsy, modified right radical mastectomy, cataract extraction, lens implantation Psychiatric History: No pertinent psych hx 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 Denies: Head Aches, Sinus Congestion, Sinus Drainage, Sore Throat Cardiovascular: Denies: Chest Pain, Light Headedness, Palpitations, Syncope Respiratory: Denies: Cough, Shortness of breath at rest, Sputum production Gastrointestinal: Denies: Abdominal Pain, Nausea, Vomiting Genitourinary: Denies: Dysuria Gynecological: Denies: Vaginal discharge Musculoskeletal: Reports: Back Pain, Leg Pain - pain in the R thigh. Denies: Joint Pain, Joint Tenderness, Neck Pain Skin: Denies: Rash, Wounds Neurological: Reports: Balance problems, Change in Speech - trouble getting her words out and then loses her train of thought in the middle of a sentence, Slurred speech, - - has had a few falls recently. Denies: Focal weakness, Numbness, Tingling, Tremor, Seizures Psychiatric: Denies: Anxiety, Depression, Homicidal Ideations, Suicidal Ideations Endocrine: Denies: Change in Body Habitus Hematologic/ Lymphatic: Denies: Easy Bruising, Easy Bleeding, Hx of blood clot VTE Information - Inpt Only VTE Present on Admission: No VTE Mechan Device Prophylaxis: SCD's VTE Pharm Prophylaxis ordered?: No Reason prophylaxis not ordered:: Medical Contraindication - possible CVA - awaiting the results of MRI Patient Problems: Active and Suspected Problems (Last Reviewed 07/23/18 @ 11:40 by Gary Bullard MD) Aphasia (Acute) Altered mental status (Acute) Subtherapeutic international normalized ratio (INR) (Acute) - Physical Exam General: Alert, Oriented x3, Cooperative, No apparent distress HEENT: Atraumatic, PERRLA, EOMI, Normocephalic Oral: Dry Mucosa Neck: Supple, No JVD, Negative Carotid Bruits, No Nodes, No Nuchal Rigidity, Trachea Midline Lungs: Clear to auscultation, Normal air movement, No rhonchi, No wheeze, No rales Cardiovascular: No murmurs, Bradycardic, Irregular Rate, No rub noted, No Gallop, - - distant hear sounds Abdomen: Bowel Sounds Present, Soft, Non Tender, Non-Distended, - - mildly tympanic Extremities: No clubbing, No cyanosis, No edema Skin: No rashes, No breakdown Musculoskeletal: Arthritic Changes Neurological: Cranial nerves II-XII grossly intact, Neuro grossly intact, Motor Exam 5/5 strength throughout, - - she has dystonic movements of the face and the UE's Psych/Mental Status: Appropriate Vital Signs Temp Pulse Resp BP Pulse Ox 98.1 F 56 L 12 147/73 H 97 10/06/18 17:22 10/06/18 20:08 10/06/18 20:08 10/06/18 20:08 10/06/18 20:08 Oxygen Delivery Method Room Air Weight: 141 lb 1.533 oz Body Mass Index (BMI) 25.8 Laboratory Tests Past 24 Hrs 10/06/18 10/06/18 10/06/18 18:00 18:00 18:00 WBC 8.2 RBC 4.26 Hgb 13.9 Hct 42.4 MCV 99.5 H MCH 32.6 H MCHC 32.8 RDW 14.0 RDW Differential 50.2 H Plt Count 199 MPV 11.9 Immature Gran % (Auto) 0.100 Neut % (Auto) 75.4 H Lymph % (Auto) 13.6 L [place] % (Auto) 8.3 Eos % (Auto) 2.2 Baso % (Auto) 0.4 Absolute Neuts (auto) 6.2 Absolute Lymphs (auto) 1.11 Total Counted Not Reportable PT Cancelled INR Cancelled Sodium Cancelled Potassium Cancelled Chloride Cancelled Carbon Dioxide Cancelled Anion Gap Cancelled BUN Cancelled Creatinine Cancelled Estim Creat Clear Calc Cancelled Est GFR (MDRD) Af Amer Cancelled Est GFR (MDRD) Non-Af Cancelled BUN/Creatinine Ratio Cancelled Glucose Cancelled Calcium Cancelled Urine Color Urine Clarity Urine pH Ur Specific [place] Urine Protein Urine Glucose (UA) Urine Ketones Urine Occult Blood Urine Nitrite Urine Bilirubin Urine Urobilinogen Ur Leukocyte Esterase Urine RBC Urine WBC Ur Squamous Epith Cells Urine Bacteria Urine Mucus 10/06/18 10/06/18 10/06/18 19:00 19:00 19:15 WBC RBC Hgb Hct MCV MCH MCHC RDW RDW Differential Plt Count MPV Immature Gran % (Auto) Neut % (Auto) Lymph % (Auto) [place] % (Auto) Eos % (Auto) Baso % (Auto) Absolute Neuts (auto) Absolute Lymphs (auto) Total Counted PT Cancelled INR Cancelled Sodium 141 Potassium 4.3 Chloride 106 Carbon Dioxide 30.0 Anion Gap 5 BUN 27 H Creatinine 1.76 H Estim Creat Clear Calc 19.83 Est GFR (MDRD) Af Amer 36 L Est GFR (MDRD) Non-Af 30 L BUN/Creatinine Ratio 15.3 Glucose 92 Calcium 8.8 Urine Color SEE COMMENT BELOW Urine Clarity Clear Urine pH 7.0 Ur Specific [place] 1.010 Urine Protein 30 H Urine Glucose (UA) Normal Urine Ketones Negative Urine Occult Blood 10 H Urine Nitrite Positive H Urine Bilirubin Negative Urine Urobilinogen Normal Ur Leukocyte Esterase 100 H Urine RBC 0 SEEN Urine WBC 0-5 SEEN Ur Squamous Epith Cells 0 SEEN Urine Bacteria RARE Urine Mucus 0 SEEN 10/06/18 19:52 WBC RBC Hgb Hct MCV MCH MCHC RDW RDW Differential Plt Count MPV Immature Gran % (Auto) Neut % (Auto) Lymph % (Auto) [place] % (Auto) Eos % (Auto) Baso % (Auto) Absolute Neuts (auto) Absolute Lymphs (auto) Total Counted PT 14.0 INR 1.1 Sodium Potassium Chloride Carbon Dioxide Anion Gap BUN Creatinine Estim Creat Clear Calc Est GFR (MDRD) Af Amer Est GFR (MDRD) Non-Af BUN/Creatinine Ratio Glucose Calcium Urine Color Urine Clarity Urine pH Ur Specific [place] Urine Protein Urine Glucose (UA) Urine Ketones Urine Occult Blood Urine Nitrite Urine Bilirubin Urine Urobilinogen Ur Leukocyte Esterase Urine RBC Urine WBC Ur Squamous Epith Cells Urine Bacteria Urine Mucus Assessment/Plan All Active Problems (Last Reviewed 07/23/18 @ 11:40 by Gary Bullard MD) Aphasia (Acute) Altered mental status (Acute) Subtherapeutic international normalized ratio (INR) (Acute) Acute systolic CHF (congestive heart failure) (Resolved) Atrial fibrillation with RVR (Resolved) History of breast cancer (Resolved) History of right mastectomy (Resolved) Rectal pain (Resolved) Impressions 1. aphasia and altered mental status - secondary to CVA ( due to subtherapeutic INR?) or to toxic encephalopathy from Soma + Percocet and possible accidental OD? states her short term memory has declined in the past few years and perhaps he should be taking over her meds. she had a box of pills in the pocket of her pants and she took it out in the ER and was preparing to take a hand full of pills when I stopped her. 2. CM with a 25% EF 3. PAF 4. Sub therapeutic INR - stopped Warfarin 4 days ago in preparation for a dental procedure to be done 10/07/18 5. dystonic movements of the face and UE's - etiology? 6. depression 7. HTN 8. Central sleep apnea 9. back pain with radiation to the R thigh, vaginal and rectal pain - etiology? spinal canal stenosis? Admit to a monitored bed on PCU MRI of the brain and MRA of the brain and the neck in the AM SCD's for now and if no stroke on the MRI will consider Lovenox for DVT prophylaxis if she remain in the hospital consult neurology try Gabapentin rather than the soma to see if the vaginal and the rectal pain improve recheck the lab in the AM hold off on a statin for now......if she did have a CVA it can be started tomorrow Stroke protocol initiated. No ECHO - she just had a ECHO in March and is stable from cardiac standpoint Code Visit OBSV E&M: 64457 Initial observation care L3
[2018-10-06 23:12] VITALS: BP 151/88; PULSE 58; RESP 16; TEMP 36.7; O2SAT 95
[2018-10-07] VITALS (16 sets, daily range): BP systolic 109–139; BP diastolic 48–91; PULSE 48–62; RESP 12–18; TEMP 36.4–36.8; O2SAT 2–98; BMI 25.8
[2018-10-07 00:15] LABS: AST(SGOT) 29 U/L (15-37); Alanine Aminotransfer ALT/SGPT 33 U/L (13-56); Albumin, Serum 3.3 g/dL (3.2-5.0); Alkaline Phosphatase 96 U/L (45-117); Bilirubin, Direct 0.19 mg/dL (0.00-0.30); Globulin 3.4 g/dL (2.2-4.2); Protein, Total 6.7 g/dL (6.4-8.2); Thyroid Stim Hormone (TSH) 4.32 uIU/mL (0.358-3.74)
[2018-10-07] MEDS: 0.9% Normal Saline 1,000 ML 100 ML IV (00:32)
[2018-10-07] MEDS: 0.9% NaCl Peripheral Flush Adult/Peds IV (00:32)
[2018-10-07] MEDS: Gabapentin 100 MG Capsule 200 MG PO ×2 (00:48→21:33)
--- NOTE | 2018-10-07 01:12 | NURSING ---
Patient dysphagia screening performed when patient came to floor. MD aware that patient failed due to distractibility and said okay to wait for speech to see patient ad keep NPO. However, stated that patient had been fine in the ER to drink and drank half a glass of water while MD was at the bedside. MD feels distractibility is not unsafe if RN watching at bedside to give gabapentin PO dose now. MD wanted pt to have nighttime dose of gabapentin given at this time. Expressed to MD that patient failed dysphagia and has not been seen by speech yet. MD stated patient clear to take this medication at this time. Given unscheduled.
[2018-10-07 02:36] LABS: Erythrocyte Sedimentation Rate 13 mm/hr (0-30)
--- NOTE | 2018-10-07 03:14 | NURSING ---
Pt wears cPAP at home - stated he would try to bring it in. Pt refused to wear out CPAP - so applied 2LNC at this time - pt willing to wear o2.
[2018-10-07 05:54] LABS: Cholesterol 174 mg/dL (200); High Density Lipoprotein 74 mg/dL; Triglycerides 56 mg/dL; Very Low Density Lipoprotein 11 mg/dL (5-40)
--- NOTE | 2018-10-07 05:55 | MRI_ITS ---
STUDY: MRI BRAIN WITHOUT CONTRAST REASON FOR EXAM: Female, 83 years old. Aphasia and confusion TECHNIQUE: Standardized multiplanar fat and water weighted pulse sequences were obtained. COMPARISON: None. FINDINGS: Mild atrophy and advanced periventricular white matter ischemic changes without mass effect or restricted diffusion.. Small perivascular space in the right temporal lobe. Normal bilateral basal ganglia. Normal thalami. There is no extra-axial fluid accumulation. Normal flow voids within the major intracranial circulation suggesting patency by spin echo criteria. Normal sella turcica, pituitary gland, infundibular stalk, optic chiasm and hypothalamus. Normal tectal plate and pineal gland. Normal midbrain, daren and medulla. Normal cerebellum. Normal basal cisterns. Normal bilateral temporal bones. Normal bilateral internal auditory canals. Postsurgical changes of the orbits.. Minor mucosal thickening of the ethmoid air cells.. Normal calvarium and skull base. Normal visualized soft tissue structures. Normal visualized upper cervical spine. MRI/Brain without Contrast IMPRESSION: Advanced periventricular white matter ischemic changes without evidence for acute infarct Electronically Signed: John Horner MD at 16:15 EST , Service support ,
--- NOTE | 2018-10-07 05:55 | MRI_ITS ---
STUDY: MRA OF THE HEAD WITHOUT CONTRAST REASON FOR EXAM: Female, 83 years old. Aphasia and confusion TECHNIQUE: 3-D [id number] (TOF) imaging was performed with MIPs. The study was performed unenhanced. COMPARISON: None. FINDINGS: Normal bilateral petrous carotid arteries. Normal right cavernous carotid artery with a normal supraclinoid bifurcation. Normal left cavernous carotid artery with a normal supraclinoid bifurcation. Normal right A1 segments of the anterior cerebral artery. Normal left A1 segments of the anterior cerebral artery. Anterior communicating artery not visualized consistent with normal developmental variant). Normal bilateral A2 segments of the anterior cerebral arteries. Normal right M1 and M2 segments of the middle cerebral arteries, with a normal M1 bifurcation. Mildly diffusely narrowed left M1 and normal M2 segments of the middle cerebral arteries, with a normal M1 bifurcation. Posterior communicating arteries are not visualized consistent with normal developmental variant Normal bilateral vertebral arteries. Normal basilar artery with a normal basilar bifurcation. The visualized bilateral superior cerebellar (SCA) arteries are normal. Normal bilateral P1, P2 and visualized P3 segments of the posterior cerebral arteries. There is no demonstrated aneurysm of the [place] of [place]. There is no major vessel occlusion or hemodynamically significant stenosis. There is no demonstrated abnormality of the visualized brain. MRI/MRA Head ONLY without Contrast IMPRESSION: Mild atherosclerotic disease. No evidence for hemodynamically significant stenosis or occlusive thrombus Electronically Signed: John Horner MD at 16:41 EST , Service support ,
--- NOTE | 2018-10-07 05:55 | MRI_ITS ---
STUDY: MRA NECK WITHOUT CONTRAST REASON FOR EXAM: Female, 83 years old. Aphasia and confusion TECHNIQUE: Source images were obtained, MIPs were performed. The study was performed unenhanced. COMPARISON: None. FINDINGS: Limited study due to artifact RIGHT CAROTID ARTERIES: Normal right common carotid artery (CCA). Normal right common carotid bulb. Normal origin of the right internal carotid (ICA) artery without a hemodynamically significant stenosis. Normal visualized cervical portion of the right internal carotid artery. Normal origin of the right external carotid artery (ECA). LEFT CAROTID ARTERIES: Normal left common carotid artery (CCA). Normal left common carotid bulb. Normal origin of the left internal carotid (ICA) artery without a hemodynamically significant stenosis. Normal visualized cervical portion of the left internal carotid artery. Normal origin of the left external carotid artery (ECA). VERTEBRAL ARTERIES: Normal antegrade flow within the bilateral vertebral artery without a hemodynamically significant stenosis. MRI/MRA Neck without Contrast IMPRESSION: Limited study due to artifact but no definitive evidence for hemodynamically significant stenosis utilizing NASCET criteria Ultrasound or CTA would be helpful for further evaluation if clinically warranted Electronically Signed: John Horner MD at 16:48 EST , Service support ,
[2018-10-07] MEDS: Albuterol 2.5 MG/3 ML VIAL.NEB. INHALATION ×2 (06:46→19:42)
--- NOTE | 2018-10-07 06:50 | MRI_ITS ---
STUDY: MRI LUMBAR SPINE WITHOUT CONTRAST REASON FOR EXAM: Female, 83 years old. Low back pain with radiculopathy. TECHNIQUE: Standardized fat and water weighted pulse sequences were obtained in the sagittal and axial planes. COMPARISON: Prior comparison studies are not available for review at this time. FINDINGS: T12-L1: Normal endplates. Normal disc height, signal and morphology. Normal bilateral facet joints. Normal central canal and bilateral lateral recesses. Normal bilateral intervertebral neural foramina. Normal lumbar lordosis. There is no substantial scoliosis. Normal conus medullaris that terminates at the L1 level. L1-2: There is mild annular disk bulge and osteophyte complex. There is mild degenerative arthropathy of the facet joints. Bilateral neuroforamina are narrowed without MR evidence for nerve impingement. There is no significant acquired central canal stenosis. L2-3: There appears to be a Schmorl's node of the superior endplate of L3 versus mild compression of this vertebral body. There is moderate annular disk bulge and osteophyte complex. There is mild degenerative arthropathy of the facet joints. Bilateral neuroforamina are narrowed without MR evidence for nerve impingement. There is no significant acquired central canal stenosis. L3-4: There is narrowing of the disc. Unfortunately, there is significant motion artifact on the axial T2-weighted images at this level. There appears to be a large broad central disc protrusion and osteophyte complex. There is irregularity of the superior endplate of L4 secondary to small Schmorl's nodes There is severe degenerative arthropathy of the facet joints with probable severe acquired canal stenosis. Neural foramina appear severely narrowed with potential impingement of the L3 nerve roots at the neural foramina L4-5: There appears to be broad central disc protrusion. There is mild annular disk bulge and osteophyte complex. There is moderately severe degenerative arthropathy of the facet joints. Bilateral neuroforamina are narrowed without MR evidence for nerve impingement. There is moderate acquired central canal stenosis. There is mild thickening of the ligamentum flavum. L5-S1: There is mild annular disk bulge and osteophyte complex. There is severe degenerative arthropathy of the facet joints. Bilateral neuroforamina are narrowed without MR evidence for nerve impingement. There is moderate acquired central canal stenosis. Normal visualized sacral ala. There appear to be sacral Tarlov cysts. Normal visualized paraspinous soft tissue structures. MRI/Spine Lumbar (Routine) IMPRESSION: Moderately severe multilevel degenerative disc disease and degenerative arthropathy of the lumbar spine with acquired canal stenosis, and neural foraminal narrowing as described. Electronically Signed: Angela Spaulding MD at 4:31 EST , Service support ,
[2018-10-07 07:57] LABS: Magnesium 2.1 mg/dL (1.6-2.6); T4 Free Direct 0.96 ng/dL (0.76-1.46)
[2018-10-07 08:59] LABS: Vitamin B12 372 pg/mL (211-911)
[2018-10-07] MEDS: Carvedilol 12.5 MG Tablet 6.25 MG PO ×2 (10:26→22:01)
[2018-10-07] MEDS: Amiodarone 200 MG Tablet PO (10:28)
[2018-10-07] MEDS: Aspirin E.C. 81 MG Tablet PO (10:28)
[2018-10-07] MEDS: PARoxetine 10 MG Tablet PO (10:28)
[2018-10-07] MEDS: Psyllium 1 PACKET PO (10:29)
[2018-10-07] MEDS: Celecoxib 200 MG Capsule PO (10:29)
[2018-10-07] MEDS: Multivitamins,Therapeutic Tablet 1 TABLET PO (10:29)
[2018-10-07] MEDS: oxyCODONE 5 MG Tablet PO ×2 (10:29→21:33)
[2018-10-07] MEDS: Calcium Carb/Vitamin D 1 TABLET Tablet PO ×3 (10:29→17:36)
--- NOTE | 2018-10-07 10:48 | MRI_ITS ---
STUDY: MRI CERVICAL SPINE WITHOUT CONTRAST REASON FOR EXAM: Female, 83 years old. Trauma TECHNIQUE: Standardized fat and water weighted pulse sequences were obtained in the sagittal and axial planes. COMPARISON: None FINDINGS: Normal foramen magnum and brainstem-cervical cord junction. Normal craniovertebral junction. Normal anterior atlantoaxial articulation. Normal odontoid process. Normal cervical lordosis. Normal vertebral bodies and posterior osseous elements. C2-3: Normal endplates. Normal disc height, signal and small central disc protrusion. Mild narrowing of the central canal. Normal bilateral neuroforamina C3-4: Grade 1 retrolisthesis. Narrowed disc space and endplate spurring. Minor bulging disc osteophyte complex. Mild narrowing of the central canal. Moderate bilateral neural femoral stenosis secondary to bony hypertrophy.. C4-5: Grade 1 spondylolisthesis. Narrowed disc space and endplate spurring. Mild bulging disc osteophyte complex. Mild narrowing the central canal and impingement upon the cord. Severe bilateral neuroforaminal stenosis secondary to bony hypertrophy.. C5-6: Grade 1 retrolisthesis. Narrowed disc space and endplate spurring. Mild bulging disc osteophyte complex. Mild narrowing the central canal. Severe bilateral neuroforaminal stenosis secondary to bony hypertrophy C6-7: Narrowed disc space and endplate spurring. Mild bulging disc osteophyte complex. Mild narrowing of the central canal. Severe bilateral neuroforaminal stenosis secondary to bony hypertrophy. C7-T1: Normal endplates. Normal disc height, signal and mild bulging of the disc.. Normal central canal. Severe bilateral neuroforaminal stenosis secondary to disc and bony hypertrophy Normal cervical cord. Normal visualized soft tissue structures. MRI/Spine Cervical (Routine) IMPRESSION: No evidence for acute fracture or subluxation. Advanced spondylosis and multilevel spinal stenosis due to disc and bony hypertrophy Electronically Signed: John Horner MD at 19:07 EST , Service support ,
--- NOTE | 2018-10-07 11:30 | PCM.CONS.GEN ---
Problem List (1) Aphasia Status: Acute (2) Altered mental status Status: Acute Qualifiers: Altered mental status type: disorientation Qualified Code(s): R41.0 - Disorientation, unspecified Reason for Consult Date of Consultation: 10/07/18 Reason for Consultation: AMS, confusion, Aphasia History of Present Illness: The patient is a 83 year old CF with PMH HTN, H/O right Breast cancer s/p mastectomy, Chronic systolic CHF, Afib on Coumadin, ? CKD admitted with AMS and speech disturbances. History is obtained from patient, her (Dr. 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 Per patient woke up in the morning yesterday (10/06/18) was confused, later in the afternoon he felt she had slurred speech and aphasia, and he feels she is much better this morning, per patient may be having long standing history of gait issues and balance issues which began around May 2005, initially he felt she was walking slow, when walked long distances would feel she needs to walk faster and faster, had multiple falls then, had about 6 falls this spring, got physical therapy, has not fallen since May this year (2018), had memory issues and feels she has issues with comprehension, denies any tremors, visual hallucinations or REM behavior sleep d/o. Per she has been tested in the past and has seen multiple Neurologists without any diagnosis. Per patient she does not have any CESAR, dizziness, but complaints of chronic left eye vision disturbances, chronic neck pain and low back pain with radicular symptoms and right thigh pain, occasionally feels her feet are numb. Denies any focal motor weakness, sensory loss or speech disturbances. Per her Coumadin was stopped recently for a dental procedure, INR was subtherapeutic on admission, Labs on admission reviewed UA- Nitrites present, LE 100, Bacteria-rare, Cr-1.76, CRP-10.5, Ammonia 17, AST/ALT-29/33, LDL-89, WBC-8.2, Vitamin B12-372, TSH-4.32 [] Past Medical History Past Medical History (Chronic Problems): Chronic Problems (Last Reviewed 10/07/18 @ 01:51 by Caitie Amezquita DO) 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) last ECHO with a 25% EF Secondary pulmonary arterial hypertension (Chronic) Nonrheumatic aortic valve insufficiency (Chronic) Nonrheumatic mitral (valve) insufficiency (Chronic) Non-rheumatic tricuspid valve insufficiency (Chronic) Paroxysmal atrial fibrillation (Chronic) Chronic systolic (congestive) heart failure (Chronic) Dyspnea (Chronic) Abnormal CT of the chest (Chronic) 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 (Chronic) Hypertension (Chronic) Central sleep apnea (Chronic) Medical History: Medical History (Last Reviewed 10/07/18 @ 01:51 by Caitie Amezquita DO) 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) I43 last ECHO with a 25% EF Secondary pulmonary arterial hypertension (Chronic) I27.21 Nonrheumatic aortic valve insufficiency (Chronic) I35.1 Nonrheumatic mitral (valve) insufficiency (Chronic) I34.0 Non-rheumatic tricuspid valve insufficiency (Chronic) I36.1 Paroxysmal atrial fibrillation (Chronic) I48.0 Chronic systolic (congestive) heart failure (Chronic) I50.22 prison (current) use of anticoagulants (Chronic) Z79.01 Hypertension (Chronic) I10 Central sleep apnea (Chronic) G47.31 Anxiety and depression F41.9, F32.9 Joint pain M25.50 Acute systolic CHF (congestive heart failure) (Resolved) I50.21 Atrial fibrillation with RVR (Resolved) I48.91 Breast cancer C50.919 History of breast cancer (Resolved) Z85.3 Rectal pain (Resolved) K62.89 Joint pain (Inactive) M25.50 Allergies Penicillins [PCN] Allergy (Verified 03/05/18 10:33) Rash Home Medications: Ambulatory Orders Medication Instructions Recorded Calcium Citrate/Vitamin D3 315 ea PO TIDCM 01/05/17 [Calcium Citrate - Vit D Caplet] Carvedilol [Coreg (Beta Kori)] 6.25 mg PO BID 01/05/17 Celecoxib [Celebrex] 200 mg PO DAILY 01/05/17 Cholecalciferol (Vitamin D3) 2,000 unit PO DAILY 01/05/17 [Vitamin D3] Paroxetine Mesylate [Brisdelle] 7.5 mg PO DAILY 01/05/17 multivitamin tablet 1 tab PO QDAY 03/05/18 psyllium husk (with sugar) 3.4 2 tsp PO DAILY g 03/05/18 gram/12 gram oral powder warfarin 2.5 mg tablet 1.25 mg PO DAILY 03/31/18 potassium chloride ER 10 mEq 10 meq PO DAILYCM #90 tab 07/21/18 tablet,extended release(part/cryst) oxycodone 5 mg tablet 5 mg PO BID tab 07/23/18 furosemide 40 mg tablet 40 mg PO SUTUTHSA #60 tab 09/27/18 Albuterol Sulfate [Ventolin Hfa] 1 puff INHALATION TID 10/06/18 Amiodarone HCl [Cordarone] 200 mg PO DAILY 10/06/18 Aspirin E.C. [Ecotrin] 81 mg PO DAILY 10/06/18 Carisoprodol 350 mg PO QHS 10/06/18 Dymista 1 puff NASAL BID 10/06/18 Magnesium Oxide [Mag-Ox 400] 400 mg PO QHS 10/06/18 Methenam/Sod Phos/Mblue/Hyoscy 1 tab PO 4X/DAY 10/06/18 [Urogesic-Blue Tablet] Surgical History: Surgical History (Last Reviewed 10/07/18 @ 01:51 by Caitie Amezquita DO) H/O right mastectomy Z90.11 History of right mastectomy (Resolved) Z98.890, Z90.11 Surgical History: appendectomy, - - Lumpectomy, tubal ligation, right breast mass biopsy, modified right radical mastectomy, cataract extraction, lens implantation Psychiatric History: No pertinent psych hx 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 Lives: Spouse/ Significant Other Smoking Status: Never smoker Tobacco Use: Non-smoker Alcohol: Rare Drugs: None Review of Systems Constitutional: Reports: - - complete ROS negative except as documented in HPI Patient Problems: Active and Suspected Problems (Last Reviewed 10/07/18 @ 01:51 by Caitie Amezquita DO) Aphasia (Acute) Altered mental status (Acute) Subtherapeutic international normalized ratio (INR) (Acute) - Physical Exam General: Alert HEENT: Normocephalic Neck: Supple Lungs: Normal air movement Cardiovascular: Normal S1, Normal S2 Abdomen: Bowel Sounds Present Extremities: No cyanosis Neurological: - - consious, alert, CN 2-12 grossly intact, power 5/5 both UE/LE, plantars B/L flexor, denies any sensory loss, no cerebellar signs, Reflexes +2 brisk B/L B/S/T/K + A, gait deferred, no NR, no termors, tone normal both UE, asterexis present both UE at present Psych/Mental Status: Normal Affect Vital Signs Temp Pulse Resp BP Pulse Ox 97.8 F 51 L 16 125/58 H 97 10/07/18 10:00 10/07/18 10:00 10/07/18 10:00 10/07/18 10:00 10/07/18 10:00 Oxygen Flow Rate (L/min) 2 Oxygen Delivery Method Room Air Weight: 64 kg Body Mass Index (BMI) 25.8 Intake and Output for Last 24 Hours 10/05/18 10/06/18 10/07/18 23:59 23:59 23:59 Intake Total 507 / 507 Balance 507 / 507 Microbiology Past 72 Hours 10/06/18 19:15 Urine Culture - Preliminary Urine Catheter - Catheter Gram negative shelly Laboratory Tests Past 24 Hrs 10/06/18 10/06/18 10/06/18 18:00 18:00 18:00 WBC 8.2 RBC 4.26 Hgb 13.9 Hct 42.4 MCV 99.5 H MCH 32.6 H MCHC 32.8 RDW 14.0 RDW Differential 50.2 H Plt Count 199 MPV 11.9 Immature Gran % (Auto) 0.100 Neut % (Auto) 75.4 H Lymph % (Auto) 13.6 L Storey % (Auto) 8.3 Eos % (Auto) 2.2 Baso % (Auto) 0.4 Absolute Neuts (auto) 6.2 Absolute Lymphs (auto) 1.11 Total Counted Not Reportable ESR PT Cancelled INR Cancelled Sodium Cancelled Potassium Cancelled Chloride Cancelled Carbon Dioxide Cancelled Anion Gap Cancelled BUN Cancelled Creatinine Cancelled Estim Creat Clear Calc Cancelled Est GFR (MDRD) Af Amer Cancelled Est GFR (MDRD) Non-Af Cancelled BUN/Creatinine Ratio Cancelled Glucose Cancelled Calcium Cancelled Magnesium Total Bilirubin Direct Bilirubin AST ALT Alkaline Phosphatase Ammonia Troponin I C-React Prot Ext Range Total Protein Albumin Globulin Triglycerides Cholesterol LDL Cholesterol VLDL Cholesterol HDL Cholesterol Vitamin B12 Folate TSH Free T4 Urine Color Urine Clarity Urine pH Ur Specific [facility] Urine Protein Urine Glucose (UA) Urine Ketones Urine Occult Blood Urine Nitrite Urine Bilirubin Urine Urobilinogen Ur Leukocyte Esterase Urine RBC Urine WBC Ur Squamous Epith Cells Urine Bacteria Urine Mucus SANDRA Screen LEAH-1 Antibody SS-A/Ro IgG Antibody SS-B/La IgG Antibody Sm (Ramires) Antibody MORTGAGE SPECIALIST Antibody Scl-70 Scleroderma Ab Double Strand DNA Ab Centromere B Antibody RPR 10/06/18 10/06/18 10/06/18 18:00 19:00 19:00 WBC RBC Hgb Hct MCV MCH MCHC RDW RDW Differential Plt Count MPV Immature Gran % (Auto) Neut % (Auto) Lymph % (Auto) Storey % (Auto) Eos % (Auto) Baso % (Auto) Absolute Neuts (auto) Absolute Lymphs (auto) Total Counted ESR 13 PT Cancelled INR Cancelled Sodium 141 Potassium 4.3 Chloride 106 Carbon Dioxide 30.0 Anion Gap 5 BUN 27 H Creatinine 1.76 H Estim Creat Clear Calc 19.83 Est GFR (MDRD) Af Amer 36 L Est GFR (MDRD) Non-Af 30 L BUN/Creatinine Ratio 15.3 Glucose 92 Calcium 8.8 Magnesium Total Bilirubin Direct Bilirubin AST ALT Alkaline Phosphatase Ammonia Troponin I C-React Prot Ext Range Total Protein Albumin Globulin Triglycerides Cholesterol LDL Cholesterol VLDL Cholesterol HDL Cholesterol Vitamin B12 Folate TSH Free T4 Urine Color Urine Clarity Urine pH Ur Specific [facility] Urine Protein Urine Glucose (UA) Urine Ketones Urine Occult Blood Urine Nitrite Urine Bilirubin Urine Urobilinogen Ur Leukocyte Esterase Urine RBC Urine WBC Ur Squamous Epith Cells Urine Bacteria Urine Mucus SANDRA Screen LEAH-1 Antibody SS-A/Ro IgG Antibody SS-B/La IgG Antibody Sm (Ramires) Antibody MORTGAGE SPECIALIST Antibody Scl-70 Scleroderma Ab Double Strand DNA Ab Centromere B Antibody R 10/06/18 10/06/18 10/06/18 19:15 19:52 19:52 WBC RBC Hgb Hct MCV MCH MCHC RDW RDW Differential Plt Count MPV Immature Gran % (Auto) Neut % (Auto) Lymph % (Auto) Storey % (Auto) Eos % (Auto) Baso % (Auto) Absolute Neuts (auto) Absolute Lymphs (auto) Total Counted ESR PT 14.0 INR 1.1 Sodium Potassium Chloride Carbon Dioxide Anion Gap BUN Creatinine Estim Creat Clear Calc Est GFR (MDRD) Af Amer Est GFR (MDRD) Non-Af BUN/Creatinine Ratio Glucose Calcium Magnesium Total Bilirubin Direct Bilirubin AST ALT Alkaline Phosphatase Ammonia Troponin I C-React Prot Ext Range Total Protein Albumin Globulin Triglycerides Cholesterol LDL Cholesterol VLDL Cholesterol HDL Cholesterol Vitamin B12 Folate TSH Free T4 Urine Color SEE COMMENT BELOW Urine Clarity Clear Urine pH 7.0 Ur Specific [facility] [place] 1.010 Urine Protein 30 H Urine Glucose (UA) Normal Urine Ketones Negative Urine Occult Blood 10 H Urine Nitrite Positive H Urine Bilirubin Negative Urine Urobilinogen Normal Ur Leukocyte Esterase 100 H Urine RBC 0 SEEN Urine WBC 0-5 SEEN Ur Squamous Epith Cells 0 SEEN Urine Bacteria RARE Urine Mucus 0 SEEN SANDRA Screen LEAH-1 Antibody SS-A/Ro IgG Antibody SS-B/La IgG Antibody Sm (Ramires) Antibody MORTGAGE SPECIALIST Antibody Scl-70 Scleroderma Ab Double Strand DNA Ab Centromere B Antibody RPR Pending 10/06/18 10/06/18 10/07/18 23:25 23:25 05:15 WBC RBC Hgb Hct MCV MCH MCHC RDW RDW Differential Plt Count MPV Immature Gran % (Auto) Neut % (Auto) Lymph % (Auto) Storey % (Auto) Eos % (Auto) Baso % (Auto) Absolute Neuts (auto) Absolute Lymphs (auto) Total Counted ESR PT INR Sodium Potassium Chloride Carbon Dioxide Anion Gap BUN Creatinine Estim Creat Clear Calc Est GFR (MDRD) Af Amer Est GFR (MDRD) Non-Af BUN/Creatinine Ratio Glucose Calcium Magnesium Total Bilirubin 0.70 Direct Bilirubin 0.19 AST 29 ALT 33 Alkaline Phosphatase 96 Ammonia Troponin I < 0.015 C-React Prot Ext Range 10.50 H Total Protein 6.7 Albumin 3.3 Globulin 3.4 Triglycerides 56 Cholesterol 174 LDL Cholesterol 89 VLDL Cholesterol 11 HDL Cholesterol 74 Vitamin B12 Folate TSH 4.32 H Free T4 Urine Color Urine Clarity Urine pH Ur Specific [facility] Urine Protein Urine Glucose (UA) Urine Ketones Urine Occult Blood Urine Nitrite Urine Bilirubin Urine Urobilinogen Ur Leukocyte Esterase Urine RBC Urine WBC Ur Squamous Epith Cells Urine Bacteria Urine Mucus SANDRA Screen LEAH-1 Antibody SS-A/Ro IgG Antibody SS-B/La IgG Antibody Sm (Ramires) Antibody MORTGAGE SPECIALIST Antibody Scl-70 Scleroderma Ab Double Strand DNA Ab Centromere B Antibody RPR 10/07/18 10/07/18 10/07/18 05:15 05:15 05:15 WBC RBC Hgb Hct MCV MCH MCHC RDW RDW Differential Plt Count MPV Immature Gran % (Auto) Neut % (Auto) Lymph % (Auto) Storey % (Auto) Eos % (Auto) Baso % (Auto) Absolute Neuts (auto) Absolute Lymphs (auto) Total Counted ESR PT INR Sodium Potassium Chloride Carbon Dioxide Anion Gap BUN Creatinine Estim Creat Clear Calc Est GFR (MDRD) Af Amer Est GFR (MDRD) Non-Af BUN/Creatinine Ratio Glucose Calcium Magnesium Total Bilirubin Direct Bilirubin AST ALT Alkaline Phosphatase Ammonia 17.0 Troponin I C-React Prot Ext Range Total Protein Albumin Globulin Triglycerides Cholesterol LDL Cholesterol VLDL Cholesterol HDL Cholesterol Vitamin B12 372 Folate TSH Free T4 Urine Color Urine Clarity Urine pH Ur Specific [facility] Urine Protein Urine Glucose (UA) Urine Ketones Urine Occult Blood Urine Nitrite Urine Bilirubin Urine Urobilinogen Ur Leukocyte Esterase Urine RBC Urine WBC Ur Squamous Epith Cells Urine Bacteria Urine Mucus SANDRA Screen Pending LEAH-1 Antibody Pending SS-A/Ro IgG Antibody Pending SS-B/La IgG Antibody Pending Sm (Ramires) Antibody Pending MORTGAGE SPECIALIST Antibody Pending Scl-70 Scleroderma Ab Pending Double Strand DNA Ab Pending Centromere B Antibody Pending RPR 10/07/18 05:15 WBC RBC Hgb Hct MCV MCH MCHC RDW RDW Differential Plt Count MPV Immature Gran % (Auto) Neut % (Auto) Lymph % (Auto) Storey % (Auto) Eos % (Auto) Baso % (Auto) Absolute Neuts (auto) Absolute Lymphs (auto) Total Counted ESR PT INR Sodium Potassium Chloride Carbon Dioxide Anion Gap BUN Creatinine Estim Creat Clear Calc Est GFR (MDRD) Af Amer Est GFR (MDRD) Non-Af BUN/Creatinine Ratio Glucose Calcium Magnesium 2.1 Total Bilirubin Direct Bilirubin AST ALT Alkaline Phosphatase Ammonia Troponin I C-React Prot Ext Range Total Protein Albumin Globulin Triglycerides Cholesterol LDL Cholesterol VLDL Cholesterol HDL Cholesterol Vitamin B12 Folate 45.70 TSH Free T4 0.96 Urine Color Urine Clarity Urine pH Ur Specific [facility] Urine Protein Urine Glucose (UA) Urine Ketones Urine Occult Blood Urine Nitrite Urine Bilirubin Urine Urobilinogen Ur Leukocyte Esterase Urine RBC Urine WBC Ur Squamous Epith Cells Urine Bacteria Urine Mucus SANDRA Screen LEAH-1 Antibody SS-A/Ro IgG Antibody SS-B/La IgG Antibody Sm (Ramires) Antibody MORTGAGE SPECIALIST Antibody Scl-70 Scleroderma Ab Double Strand DNA Ab Centromere B Antibody RPR Assessment/Plan All Active Problems (Last Reviewed 10/07/18 @ 01:51 by Caitie Amezquita DO) Aphasia (Acute) Altered mental status (Acute) Subtherapeutic international normalized ratio (INR) (Acute) Acute systolic CHF (congestive heart failure) (Resolved) Atrial fibrillation with RVR (Resolved) History of breast cancer (Resolved) History of right mastectomy (Resolved) Rectal pain (Resolved) The patient is a 83 year old CF with PMH HTN, H/O right Breast cancer s/p mastectomy, Chronic systolic CHF, Afib on Coumadin, ? CKD admitted with AMS and speech disturbances. History is obtained from patient, her (Dr. 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 Per patient woke up in the morning yesterday (10/06/18) was confused, later in the afternoon he felt she had slurred speech and aphasia, and he feels she is much better this morning, per patient may be having long standing history of gait issues and balance issues which began around May 2005, initially he felt she was walking slow, when walked long distances would feel she needs to walk faster and faster, had multiple falls then, had about 6 falls this spring, got physical therapy, has not fallen since May this year (2018), had memory issues and feels she has issues with comprehension, denies any tremors, visual hallucinations or REM behavior sleep d/o. Per she has been tested in the past and has seen multiple Neurologists without any diagnosis. Per patient she does not have any CESAR, dizziness, but complaints of chronic left eye vision disturbances, chronic neck pain and low back pain with radicular symptoms and right thigh pain, occasionally feels her feet are numb. Denies any focal motor weakness, sensory loss or speech disturbances. Per her Coumadin was stopped recently for a dental procedure, INR was subtherapeutic on admission, Labs on admission reviewed UA- Nitrites present, LE 100, Bacteria-rare, Cr-1.76, CRP-10.5, Ammonia 17, AST/ALT-29/33, LDL-89, WBC-8.2, Vitamin B12-372, TSH-4.32 Impression AMS, ? aphasia R/O stroke Possible Metabolic encephalopathy R/O Cervical/Lumbar stenosis vs Neuropathy UTI, KALEN Plan -On Coumadin, INR subtherapeutic, discussed about changing to NOACs like Eliquis, but not interested at present. Follows up with Dr. Bullard and will defer to hospitalist and Cardiology -Statins if no contraindication -ASA 81 mg PO once daily, bridge with Coumadin till INR becomes therapeutic -Check MRI brain w/o contrast, MRA head/neck, MRI C spine and L spine w/o contrast -Labs reviewed- UA- Nitrites present, LE 100, Bacteria-rare, Cr-1.76, CRP-10.5, Ammonia 17, AST/ALT-29/33, LDL-89, WBC-8.2, Vitamin B12-372, TSH-4.32 -Check SANDRA/ANCA/RF/SSa/SSb AB/SPEP with ROCHELLE and UPEP with ROCHELLE -Check EMG/NCS both LE as outpatient -May need further evaluation for dementia as outpatient in form of neurocognitive evaluation -TTE and Hba1c -PT/OT/ST -Fall precautions -Further medical management per hospitalist team -Please call with questions if any -Thank you for allowing us to participate in patient's care and management . Code Visit Inpatient E&M: [id number] Init Hosp L3
--- NOTE | 2018-10-07 11:56 | CON.PCM_ITS ---
Problem List (1) Aphasia Status: Acute (2) Altered mental status Status: Acute Qualifiers: Altered mental status type: disorientation Qualified Code(s): R41.0 - Disorientation, unspecified Reason for Consult Date of Consultation: 10/07/18 Reason for Consultation: AMS, confusion, Aphasia History of Present Illness: The patient is a 83 year old CF with PMH HTN, H/O right Breast cancer s/p mastectomy, Chronic systolic CHF, Afib on Coumadin, ? CKD admitted with AMS and speech disturbances. History is obtained from patient, her (Dr. 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 Per patient woke up in the morning yesterday (10/06/18) was confused, later in the afternoon he felt she had slurred speech and aphasia, and he feels she is much better this morning, per patient may be having long standing history of gait issues and balance issues which began around May 2005, initia lly he felt she was walking slow, when walked long distances would feel she needs to walk faster and faster, had multiple falls then, had about 6 falls this spring, got physical therapy, has not fallen since May this year (2018), had memory issues and feels she has issues with comprehension, denies any tremors, visual hallucinations or REM behavior sleep d/o. Per she has been tested in the past and has seen multiple Neurologists without any diagnosis. Per patient she does not have any CESAR, dizziness, but complaints of chronic left eye vision disturbances, chronic neck pain and low back pain with radicular symptoms and right thigh pain, occasionally feels her feet are numb. Denies any focal motor weakness, sensory loss or speech disturbances. Per her Coumadin was stopped recently for a dental procedure, INR was subtherapeutic on admission, Labs on admission reviewed UA- Nitrites present, LE 100, Bacteria- rare, Cr-1.76, CRP-10.5, Ammonia 17, AST/ALT-29/33, LDL-89, WBC-8.2, Vitamin B12-372, TSH-4.32 [] Past Medical History Past Medical History (Chronic Problems): Chronic Problems (Last Reviewed 10/07/18 @ 01:51 by Caitie Amezquita DO) 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) last ECHO with a 25% EF Secondary pulmonary arterial hypertension (Chronic) Nonrheumatic aortic valve insufficiency (Chronic) Nonrheumatic mitral (valve) insufficiency (Chronic) Non-rheumatic tricuspid valve insufficiency (Chronic) Paroxysmal atrial fibrillation (Chronic) Chronic systolic (congestive) heart failure (Chronic) Dyspnea (Chronic) Abnormal CT of the chest (Chronic) 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) Hypertension (Chronic) Central sleep apnea (Chronic) Medical History: Medical History (Last Reviewed 10/07/18 @ 01:51 by Caitie Amezquita DO) 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) I43 last ECHO with a 25% EF Secondary pulmonary arterial hypertension (Chronic) I27.21 Nonrheumatic aortic valve insufficiency (Chronic) I35.1 Nonrheumatic mitral (valve) insufficiency (Chronic) I34.0 Non-rheumatic tricuspid valve insufficiency (Chronic) I36.1 Paroxysmal atrial fibrillation (Chronic) I48.0 Chronic systolic (congestive) heart failure (Chronic) I50.22 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) Z79.01 Hypertension (Chronic) I10 Central sleep apnea (Chronic) G47.31 Anxiety and depression F41.9, F32.9 Joint pain M25.50 Acute systolic CHF (congestive heart failure) (Resolved) I50.21 Atrial fibrillation with RVR (Resolved) I48.91 Breast cancer C50.919 History of breast cancer (Resolved) Z85.3 Rectal pain (Resolved) K62.89 Joint pain (Inactive) M25.50 Allergies Penicillins [PCN] Allergy (Verified 03/05/18 10:33) Rash Home Medications: Ambulatory Orders Medication Instructions Recorded Calcium Citrate/Vitamin D3 315 ea PO TIDCM 01/05/17 [Calcium Citrate - Vit D Caplet] Carvedilol [Coreg (Beta Kori)] 6.25 mg PO BID 01/05/17 Celecoxib [Celebrex] 200 mg PO DAILY 01/05/17 Cholecalciferol (Vitamin D3) 2,000 unit PO DAILY 01/05/17 [Vitamin D3] Paroxetine Mesylate [Brisdelle] 7.5 mg PO DAILY 01/05/17 multivitamin tablet 1 tab PO QDAY 03/05/18 psyllium husk (with sugar) 3.4 2 tsp PO DAILY g 03/05/18 gram/12 gram oral powder warfarin 2.5 mg tablet 1.25 mg PO DAILY 03/31/18 potassium chloride ER 10 mEq 10 meq PO DAILYCM #90 tab 07/21/18 tablet,extended release(part/cryst) oxycodone 5 mg tablet 5 mg PO BID tab 07/23/18 furosemide 40 mg tablet 40 mg PO SUTUTHSA #60 tab 09/27/18 Albuterol Sulfate [Ventolin Hfa] 1 puff INHALATION TID 10/06/18 Amiodarone HCl [Cordarone] 200 mg PO DAILY 10/06/18 Aspirin E.C. [Ecotrin] 81 mg PO DAILY 10/06/18 Carisoprodol 350 mg PO QHS 10/06/18 Dymista 1 puff NASAL BID 10/06/18 Magnesium Oxide [Mag-Ox 400] 400 mg PO QHS 10/06/18 [place]am/Sod Phos/Mblue/Hyoscy 1 tab PO 4X/DAY 10/06/18 [Urogesic-Blue Tablet] Surgical History: Surgical History (Last Reviewed 10/07/18 @ 01:51 by Caitie Amezquita DO) H/O right mastectomy Z90.11 History of right mastectomy (Resolved) Z98.890, Z90.11 Surgical History: appendectomy, - - Lumpectomy, tubal ligation, right breast mass biopsy, modified right radical mastectomy, cataract extraction, lens implantation Psychiatric History: No pertinent psych hx TUBE PULLER History: No pertinent TUBE PULLER history Lives: Spouse/ Significant Other Smoking Status: Never smoker Tobacco Use: Non-smoker Alcohol: Rare Drugs: None Review of Systems Constitutional: Reports: - - complete ROS negative except as documented in HPI Patient Problems: Active and Suspected Problems (Last Reviewed 10/07/18 @ 01:51 by Caitie Amezquita DO) Aphasia (Acute) Altered mental status (Acute) Subtherapeutic international normalized ratio (INR) (Acute) - Physical Exam General: Alert HEENT: Normocephalic Neck: Supple Lungs: Normal air movement Cardiovascular: Normal S1, Normal S2 Abdomen: Bowel Sounds Present Extremities: No cyanosis Neurological: - - consious, alert, CN 2-12 grossly intact, power 5/5 both UE/LE, plantars B/L flexor, denies any sensory loss, no cerebellar signs, Reflexes +2 brisk B/L B/S/T/K + A, gait deferred, no NR, no termors, tone normal both UE, asterexis present both UE at present Psych/Mental Status: Normal Affect Vital Signs Temp Pulse Resp BP Pulse Ox 97.8 F 51 L 16 125/58 H 97 10/07/18 10:00 10/07/18 10:00 10/07/18 10:00 10/07/18 10:00 10/07/18 10:00 Oxygen Flow Rate (L/min) 2 Oxygen Delivery Method Room Air Weight: 64 kg Body Mass Index (BMI) 25.8 Intake and Output for Last 24 Hours 10/05/18 10/06/18 10/07/18 23:59 23:59 23:59 Intake Total 507 / 507 Balance 507 / 507 Microbiology Past 72 Hours 10/06/18 19:15 Urine Culture - Preliminary Urine Catheter - Catheter Gram negative shelly Laboratory Tests Past 24 Hrs 10/06/18 10/06/18 10/06/18 18:00 18:00 18:00 WBC 8.2 RBC 4.26 Hgb 13.9 Hct 42.4 MCV 99.5 H MCH 32.6 H MCHC 32.8 RDW 14.0 RDW Differential 50.2 H Plt Count 199 MPV 11.9 Immature Gran % (Auto) 0.100 Neut % (Auto) 75.4 H Lymph % (Auto) 13.6 L [place] % (Auto) 8.3 Eos % (Auto) 2.2 Baso % (Auto) 0.4 Absolute Neuts (auto) 6.2 Absolute Lymphs (auto) 1.11 Total Counted Not Reportable ESR PT Cancelled INR Cancelled Sodium Cancelled Potassium Cancelled Chloride Cancelled Carbon Dioxide Cancelled Anion Gap Cancelled BUN Cancelled Creatinine Cancelled Estim Creat Clear Calc Cancelled Est GFR (MDRD) Af Amer Cancelled Est GFR (MDRD) Non-Af Cancelled BUN/Creatinine Ratio Cancelled Glucose Cancelled Calcium Cancelled Magnesium Total Bilirubin Direct Bilirubin AST ALT Alkaline Phosphatase Ammonia Troponin I C-React Prot Ext Range Total Protein Albumin Globulin Triglycerides Cholesterol LDL Cholesterol VLDL Cholesterol HDL Cholesterol Vitamin B12 Folate TSH Free T4 Urine Color Urine Clarity Urine pH Ur Specific [place] Urine Protein Urine Glucose (UA) Urine Ketones Urine Occult Blood Urine Nitrite Urine Bilirubin Urine Urobilinogen Ur Leukocyte Esterase Urine RBC Urine WBC Ur Squamous Epith Cells Urine Bacteria Urine Mucus SANDRA Screen LEAH-1 Antibody SS-A/Ro IgG Antibody SS-B/La IgG Antibody Sm (Ramires) Antibody CLIENT SUPPORT ADMINISTRATOR Antibody Scl-70 Scleroderma Ab Double Strand DNA Ab Centromere B Antibody RPR 10/06/18 10/06/18 10/06/18 18:00 19:00 19:00 WBC RBC Hgb Hct MCV MCH MCHC RDW RDW Differential Plt Count MPV Immature Gran % (Auto) Neut % (Auto) Lymph % (Auto) [place] % (Auto) Eos % (Auto) Baso % (Auto) Absolute Neuts (auto) Absolute Lymphs (auto) Total Counted ESR 13 PT Cancelled INR Cancelled Sodium 141 Potassium 4.3 Chloride 106 Carbon Dioxide 30.0 Anion Gap 5 BUN 27 H Creatinine 1.76 H Estim Creat Clear Calc 19.83 Est GFR (MDRD) Af Amer 36 L Est GFR (MDRD) Non-Af 30 L BUN/Creatinine Ratio 15.3 Glucose 92 Calcium 8.8 Magnesium Total Bilirubin Direct Bilirubin AST ALT Alkaline Phosphatase Ammonia Troponin I C-React Prot Ext Range Total Protein Albumin Globulin Triglycerides Cholesterol LDL Cholesterol VLDL Cholesterol HDL Cholesterol Vitamin B12 Folate TSH Free T4 Urine Color Urine Clarity Urine pH Ur Specific [place] Urine Protein Urine Glucose (UA) Urine Ketones Urine Occult Blood Urine Nitrite Urine Bilirubin Urine Urobilinogen Ur Leukocyte Esterase Urine RBC Urine WBC Ur Squamous Epith Cells Urine Bacteria Urine Mucus SANDRA Screen LEAH-1 Antibody SS-A/Ro IgG Antibody SS-B/La IgG Antibody Sm (Ramires) Antibody CLIENT SUPPORT ADMINISTRATOR Antibody Scl-70 Scleroderma Ab Double Strand DNA Ab Centromere B Antibody RPR 10/06/18 10/06/18 10/06/18 19:15 19:52 19:52 WBC RBC Hgb Hct MCV MCH MCHC RDW RDW Differential Plt Count MPV Immature Gran % (Auto) Neut % (Auto) Lymph % (Auto) [place] % (Auto) Eos % (Auto) Baso % (Auto) Absolute Neuts (auto) Absolute Lymphs (auto) Total Counted ESR PT 14.0 INR 1.1 Sodium Potassium Chloride Carbon Dioxide Anion Gap BUN Creatinine Estim Creat Clear Calc Est GFR (MDRD) Af Amer Est GFR (MDRD) Non-Af BUN/Creatinine Ratio Glucose Calcium Magnesium Total Bilirubin Direct Bilirubin AST ALT Alkaline Phosphatase Ammonia Troponin I C-React Prot Ext Range Total Protein Albumin Globulin Triglycerides Cholesterol LDL Cholesterol VLDL Cholesterol HDL Cholesterol Vitamin B12 Folate TSH Free T4 Urine Color SEE COMMENT BELOW Urine Clarity Clear Urine pH 7.0 Ur Specific [place] 1.010 Urine Protein 30 H Urine Glucose (UA) Normal Urine Ketones Negative Urine Occult Blood 10 H Urine Nitrite Positive H Urine Bilirubin Negative Urine Urobilinogen Normal Ur Leukocyte Esterase 100 H Urine RBC 0 SEEN Urine WBC 0-5 SEEN Ur Squamous Epith Cells 0 SEEN Urine Bacteria RARE Urine Mucus 0 SEEN SANDRA Screen LEAH-1 Antibody SS-A/Ro IgG Antibody SS-B/La IgG Antibody Sm (Ramires) Antibody CLIENT SUPPORT ADMINISTRATOR Antibody Scl-70 Scleroderma Ab Double Strand DNA Ab Centromere B Antibody RPR Pending 10/06/18 10/06/18 10/07/18 23:25 23:25 05:15 WBC RBC Hgb Hct MCV MCH MCHC RDW RDW Differential Plt Count MPV Immature Gran % (Auto) Neut % (Auto) Lymph % (Auto) [place] % (Auto) Eos % (Auto) Baso % (Auto) Absolute Neuts (auto) Absolute Lymphs (auto) Total Counted ESR PT INR Sodium Potassium Chloride Carbon Dioxide Anion Gap BUN Creatinine Estim Creat Clear Calc Est GFR (MDRD) Af Amer Est GFR (MDRD) Non-Af BUN/Creatinine Ratio Glucose Calcium Magnesium Total Bilirubin 0.70 Direct Bilirubin 0.19 AST 29 ALT 33 Alkaline Phosphatase 96 Ammonia Troponin I < 0.015 C-React Prot Ext Range 10.50 H Total Protein 6.7 Albumin 3.3 Globulin 3.4 Triglycerides 56 Cholesterol 174 LDL Cholesterol 89 VLDL Cholesterol 11 HDL Cholesterol 74 Vitamin B12 Folate TSH 4.32 H Free T4 Urine Color Urine Clarity Urine pH Ur Specific [place] Urine Protein Urine Glucose (UA) Urine Ketones Urine Occult Blood Urine Nitrite Urine Bilirubin Urine Urobilinogen Ur Leukocyte Esterase Urine RBC Urine WBC Ur Squamous Epith Cells Urine Bacteria Urine Mucus SANDRA Screen LEAH-1 Antibody SS-A/Ro IgG Antibody SS-B/La IgG Antibody Sm (Ramires) Antibody CLIENT SUPPORT ADMINISTRATOR Antibody Scl-70 Scleroderma Ab Double Strand DNA Ab Centromere B Antibody RPR 10/07/18 10/07/18 10/07/18 05:15 05:15 05:15 WBC RBC Hgb Hct MCV MCH MCHC RDW RDW Differential Plt Count MPV Immature Gran % (Auto) Neut % (Auto) Lymph % (Auto) [place] % (Auto) Eos % (Auto) Baso % (Auto) Absolute Neuts (auto) Absolute Lymphs (auto) Total Counted ESR PT INR Sodium Potassium Chloride Carbon Dioxide Anion Gap BUN Creatinine Estim Creat Clear Calc Est GFR (MDRD) Af Amer Est GFR (MDRD) Non-Af BUN/Creatinine Ratio Glucose Calcium Magnesium Total Bilirubin Direct Bilirubin AST ALT Alkaline Phosphatase Ammonia 17.0 Troponin I C-React Prot Ext Range Total Protein Albumin Globulin Triglycerides Cholesterol LDL Cholesterol VLDL Cholesterol HDL Cholesterol Vitamin B12 372 Folate TSH Free T4 Urine Color Urine Clarity Urine pH Ur Specific [place] Urine Protein Urine Glucose (UA) Urine Ketones Urine Occult Blood Urine Nitrite Urine Bilirubin Urine Urobilinogen Ur Leukocyte Esterase Urine RBC Urine WBC Ur Squamous Epith Cells Urine Bacteria Urine Mucus SANDRA Screen Pending LEAH-1 Antibody Pending SS-A/Ro IgG Antibody Pending SS-B/La IgG Antibody Pending Sm (Ramires) Antibody Pending CLIENT SUPPORT ADMINISTRATOR Antibody Pending Scl-70 Scleroderma Ab Pending Double Strand DNA Ab Pending Centromere B Antibody Pending RPR 10/07/18 05:15 WBC RBC Hgb Hct MCV MCH MCHC RDW RDW Differential Plt Count MPV Immature Gran % (Auto) Neut % (Auto) Lymph % (Auto) [place] % (Auto) Eos % (Auto) Baso % (Auto) Absolute Neuts (auto) Absolute Lymphs (auto) Total Counted ESR PT INR Sodium Potassium Chloride Carbon Dioxide Anion Gap BUN Creatinine Estim Creat Clear Calc Est GFR (MDRD) Af Amer Est GFR (MDRD) Non-Af BUN/Creatinine Ratio Glucose Calcium Magnesium 2.1 Total Bilirubin Direct Bilirubin AST ALT Alkaline Phosphatase Ammonia Troponin I C-React Prot Ext Range Total Protein Albumin Globulin Triglycerides Cholesterol LDL Cholesterol VLDL Cholesterol HDL Cholesterol Vitamin B12 Folate 45.70 TSH Free T4 0.96 Urine Color Urine Clarity Urine pH Ur Specific [place] Urine Protein Urine Glucose (UA) Urine Ketones Urine Occult Blood Urine Nitrite Urine Bilirubin Urine Urobilinogen Ur Leukocyte Esterase Urine RBC Urine WBC Ur Squamous Epith Cells Urine Bacteria Urine Mucus SANDRA Screen LEAH-1 Antibody SS-A/Ro IgG Antibody SS-B/La IgG Antibody Sm (Ramires) Antibody CLIENT SUPPORT ADMINISTRATOR Antibody Scl-70 Scleroderma Ab Double Strand DNA Ab Centromere B Antibody RPR Assessment/Plan All Active Problems (Last Reviewed 10/07/18 @ 01:51 by Caitie Amezquita DO) Aphasia (Acute) Altered mental status (Acute) Subtherapeutic international normalized ratio (INR) (Acute) Acute systolic CHF (congestive heart failure) (Resolved) Atrial fibrillation with RVR (Resolved) History of breast cancer (Resolved) History of right mastectomy (Resolved) Rectal pain (Resolved) The patient is a 83 year old CF with PMH HTN, H/O right Breast cancer s/p mastectomy, Chronic systolic CHF, Afib on Coumadin, ? CKD admitted with AMS and speech disturbances. History is obtained from patient, her (Dr. 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 Per husb and patient woke up in the morning yesterday (10/06/18) was confused, later in the afternoon he felt she had slurred speech and aphasia, and he feels she is much better this morning, per patient may be having long standing history of gait issues and balance issues which began around May 2005, initially he felt she was walking slow, when walked long distances would feel she needs to walk faster and faster, had multiple falls then, had about 6 falls this spring, got physical therapy, has not fallen since May this year (2018), had memory issues and feels she has issues with comprehension, denies any tremors, visual hallucinations or REM behavior sleep d/o. Per she has been tested in the past and has seen multiple Neurologists without any diagnosis. Per patient she does not have any CESAR, dizziness, but complaints of chronic left eye vision disturbances, chronic neck pain and low back pain with radicular symptoms and right thigh pain, occasionally feels her feet are numb. Denies any focal motor weakness, sensory loss or speech disturbances. Per her Coumadin was stopped recently for a dental procedure, INR was subtherapeutic on admission, Labs on admission reviewed UA- Nitrites present, LE 100, Bacteria- rare, Cr-1.76, CRP-10.5, Ammonia 17, AST/ALT-29/33, LDL-89, WBC-8.2, Vitamin B12-372, TSH-4.32 Impression AMS, ? aphasia R/O stroke Possible Metabolic encephalopathy R/O Cervical/Lumbar stenosis vs Neuropathy UTI, KALEN Plan -On Coumadin, INR subtherapeutic, discussed about changing to NOACs like Eliquis, but not interested at present. Follows up with Dr. Bullard and will defer to hospitalist and Cardiology -Statins if no contraindication -ASA 81 mg PO once daily, bridge with Coumadin till INR becomes therapeutic -Check MRI brain w/o contrast, MRA head/neck, MRI C spine and L spine w/o contrast -Labs reviewed- UA- Nitrites present, LE 100, Bacteria-rare, Cr-1.76, CRP-10.5, Ammonia 17, AST/ALT-29/33, LDL-89, WBC-8.2, Vitamin B12-372, TSH-4.32 -Check SANDRA/ANCA/RF/SSa/SSb AB/SPEP with ROCHELLE and UPEP with ROCHELLE -Check EMG/NCS both LE as outpatient -May need further evaluation for dementia as outpatient in form of neurocognitive evaluation -TTE and Hba1c -PT/OT/ST -Fall precautions -Further medical management per hospitalist team -Please call with questions if any -Thank you for allowing us to participate in patient's care and management . Code Visit Inpatient E&M: [id number] Init Hosp L3
[2018-10-07] MEDS: Ceftriaxone 1 GM/50 ML BAG IV (12:32)
--- NOTE | 2018-10-07 13:10 | PN_ITS ---
Patient Problems: Active and Suspected Problems (Last Reviewed 10/07/18 @ 01:51 by Caitie Amezquita DO) Aphasia (Acute) Altered mental status (Acute) Subtherapeutic international normalized ratio (INR) (Acute) Subjective: Patient seen and examined. at bedside. Patient denies current neurologic deficits. at bedside notes patient has been confused intermittently and had slurred speech prior to admission. also reports patient has had an ongoing issue with balance with recurrent falls. - Physical Exam General: Alert, Oriented x3, Cooperative HEENT: Atraumatic, PERRLA, EOMI, Normocephalic Neck: Supple, No JVD, Negative Carotid Bruits Lungs: Clear to auscultation, Normal air movement Cardiovascular: Regular rate, Regular Rhythm, Normal S1, Normal S2, No murmurs Abdomen: Bowel Sounds Present, Soft, Non Tender, Non-Distended Extremities: No clubbing, No cyanosis, No edema, Capillary Refill Less than 3 Seconds Skin: No rashes, No breakdown Musculoskeletal: No Tenderness to Palpation of Joints or Extremities Neurological: Cranial nerves II-XII grossly intact Psych/Mental Status: Normal Affect, Appropriate Vital Signs Temp Pulse Resp BP Pulse Ox 97.8 F 56 L 16 125/58 H 97 10/07/18 10:00 10/07/18 11:13 10/07/18 10:00 10/07/18 10:00 10/07/18 10:00 Oxygen Flow Rate (L/min) 2 Oxygen Delivery Method Room Air Weight: 141 lb 1.533 oz Body Mass Index (BMI) 25.8 Intake and Output for Last 24 Hours 10/05/18 10/06/18 10/07/18 23:59 23:59 23:59 Intake Total 1232 / 1232 Balance 1232 / 1232 Microbiology Past 72 Hours 10/06/18 19:15 Urine Culture - Preliminary Urine Catheter - Catheter Gram negative shelly Laboratory Tests Past 24 Hrs 10/06/18 10/06/18 10/06/18 18:00 18:00 18:00 WBC 8.2 RBC 4.26 Hgb 13.9 Hct 42.4 MCV 99.5 H MCH 32.6 H MCHC 32.8 RDW 14.0 RDW Differential 50.2 H Plt Count 199 MPV 11.9 Immature Gran % (Auto) 0.100 Neut % (Auto) 75.4 H Lymph % (Auto) 13.6 L [place] % (Auto) 8.3 Eos % (Auto) 2.2 Baso % (Auto) 0.4 Absolute Neuts (auto) 6.2 Absolute Lymphs (auto) 1.11 Total Counted Not Reportable ESR PT Cancelled INR Cancelled Sodium Cancelled Potassium Cancelled Chloride Cancelled Carbon Dioxide Cancelled Anion Gap Cancelled BUN Cancelled Creatinine Cancelled Estim Creat Clear Calc Cancelled Est GFR (MDRD) Af Amer Cancelled Est GFR (MDRD) Non-Af Cancelled BUN/Creatinine Ratio Cancelled Glucose Cancelled Calcium Cancelled Magnesium Total Bilirubin Direct Bilirubin AST ALT Alkaline Phosphatase Ammonia Troponin I C-React Prot Ext Range Total Protein Albumin Globulin Triglycerides Cholesterol LDL Cholesterol VLDL Cholesterol HDL Cholesterol Vitamin B12 Folate TSH Free T4 Urine Color Urine Clarity Urine pH Ur Specific [place] Urine Protein Urine Glucose (UA) Urine Ketones Urine Occult Blood Urine Nitrite Urine Bilirubin Urine Urobilinogen Ur Leukocyte Esterase Urine RBC Urine WBC Ur Squamous Epith Cells Urine Bacteria Urine Mucus SANDRA Screen LEAH-1 Antibody SS-A/Ro IgG Antibody SS-B/La IgG Antibody Sm (Ramires) Antibody PRESSED OR BLOWN GLASS WORKER Antibody Scl-70 Scleroderma Ab Double Strand DNA Ab Centromere B Antibody RPR 10/06/18 10/06/18 10/06/18 18:00 19:00 19:00 WBC RBC Hgb Hct MCV MCH MCHC RDW RDW Differential Plt Count MPV Immature Gran % (Auto) Neut % (Auto) Lymph % (Auto) [place] % (Auto) Eos % (Auto) Baso % (Auto) Absolute Neuts (auto) Absolute Lymphs (auto) Total Counted ESR 13 PT Cancelled INR Cancelled Sodium 141 Potassium 4.3 Chloride 106 Carbon Dioxide 30.0 Anion Gap 5 BUN 27 H Creatinine 1.76 H Estim Creat Clear Calc 19.83 Est GFR (MDRD) Af Amer 36 L Est GFR (MDRD) Non-Af 30 L BUN/Creatinine Ratio 15.3 Glucose 92 Calcium 8.8 Magnesium Total Bilirubin Direct Bilirubin AST ALT Alkaline Phosphatase Ammonia Troponin I C-React Prot Ext Range Total Protein Albumin Globulin Triglycerides Cholesterol LDL Cholesterol VLDL Cholesterol HDL Cholesterol Vitamin B12 Folate TSH Free T4 Urine Color Urine Clarity Urine pH Ur Specific [place] Urine Protein Urine Glucose (UA) Urine Ketones Urine Occult Blood Urine Nitrite Urine Bilirubin Urine Urobilinogen Ur Leukocyte Esterase Urine RBC Urine WBC Ur Squamous Epith Cells Urine Bacteria Urine Mucus SANDRA Screen LEAH-1 Antibody SS-A/Ro IgG Antibody SS-B/La IgG Antibody Sm (Ramires) Antibody PRESSED OR BLOWN GLASS WORKER Antibody Scl-70 Scleroderma Ab Double Strand DNA Ab Centromere B Antibody RPR 10/06/18 10/06/18 10/06/18 19:15 19:52 19:52 WBC RBC Hgb Hct MCV MCH MCHC RDW RDW Differential Plt Count MPV Immature Gran % (Auto) Neut % (Auto) Lymph % (Auto) [place] % (Auto) Eos % (Auto) Baso % (Auto) Absolute Neuts (auto) Absolute Lymphs (auto) Total Counted ESR PT 14.0 INR 1.1 Sodium Potassium Chloride Carbon Dioxide Anion Gap BUN Creatinine Estim Creat Clear Calc Est GFR (MDRD) Af Amer Est GFR (MDRD) Non-Af BUN/Creatinine Ratio Glucose Calcium Magnesium Total Bilirubin Direct Bilirubin AST ALT Alkaline Phosphatase Ammonia Troponin I C-React Prot Ext Range Total Protein Albumin Globulin Triglycerides Cholesterol LDL Cholesterol VLDL Cholesterol HDL Cholesterol Vitamin B12 Folate TSH Free T4 Urine Color SEE COMMENT BELOW Urine Clarity Clear Urine pH 7.0 Ur Specific [place] 1.010 Urine Protein 30 H Urine Glucose (UA) Normal Urine Ketones Negative Urine Occult Blood 10 H Urine Nitrite Positive H Urine Bilirubin Negative Urine Urobilinogen Normal Ur Leukocyte Esterase 100 H Urine RBC 0 SEEN Urine WBC 0-5 SEEN Ur Squamous Epith Cells 0 SEEN Urine Bacteria RARE Urine Mucus 0 SEEN SANDRA Screen LEAH-1 Antibody SS-A/Ro IgG Antibody SS-B/La IgG Antibody Sm (Ramires) Antibody PRESSED OR BLOWN GLASS WORKER Antibody Scl-70 Scleroderma Ab Double Strand DNA Ab Centromere B Antibody RPR Pending 10/06/18 10/06/18 10/07/18 23:25 23:25 05:15 WBC RBC Hgb Hct MCV MCH MCHC RDW RDW Differential Plt Count MPV Immature Gran % (Auto) Neut % (Auto) Lymph % (Auto) [place] % (Auto) Eos % (Auto) Baso % (Auto) Absolute Neuts (auto) Absolute Lymphs (auto) Total Counted ESR PT INR Sodium Potassium Chloride Carbon Dioxide Anion Gap BUN Creatinine Estim Creat Clear Calc Est GFR (MDRD) Af Amer Est GFR (MDRD) Non-Af BUN/Creatinine Ratio Glucose Calcium Magnesium Total Bilirubin 0.70 Direct Bilirubin 0.19 AST 29 ALT 33 Alkaline Phosphatase 96 Ammonia Troponin I < 0.015 C-React Prot Ext Range 10.50 H Total Protein 6.7 Albumin 3.3 Globulin 3.4 Triglycerides 56 Cholesterol 174 LDL Cholesterol 89 VLDL Cholesterol 11 HDL Cholesterol 74 Vitamin B12 Folate TSH 4.32 H Free T4 Urine Color Urine Clarity Urine pH Ur Specific [place] Urine Protein Urine Glucose (UA) Urine Ketones Urine Occult Blood Urine Nitrite Urine Bilirubin Urine Urobilinogen Ur Leukocyte Esterase Urine RBC Urine WBC Ur Squamous Epith Cells Urine Bacteria Urine Mucus SANDRA Screen LEAH-1 Antibody SS-A/Ro IgG Antibody SS-B/La IgG Antibody Sm (Ramires) Antibody PRESSED OR BLOWN GLASS WORKER Antibody Scl-70 Scleroderma Ab Double Strand DNA Ab Centromere B Antibody RPR 10/07/18 10/07/18 10/07/18 05:15 05:15 05:15 WBC RBC Hgb Hct MCV MCH MCHC RDW RDW Differential Plt Count MPV Immature Gran % (Auto) Neut % (Auto) Lymph % (Auto) [place] % (Auto) Eos % (Auto) Baso % (Auto) Absolute Neuts (auto) Absolute Lymphs (auto) Total Counted ESR PT INR Sodium Potassium Chloride Carbon Dioxide Anion Gap BUN Creatinine Estim Creat Clear Calc Est GFR (MDRD) Af Amer Est GFR (MDRD) Non-Af BUN/Creatinine Ratio Glucose Calcium Magnesium Total Bilirubin Direct Bilirubin AST ALT Alkaline Phosphatase Ammonia 17.0 Troponin I C-React Prot Ext Range Total Protein Albumin Globulin Triglycerides Cholesterol LDL Cholesterol VLDL Cholesterol HDL Cholesterol Vitamin B12 372 Folate TSH Free T4 Urine Color Urine Clarity Urine pH Ur Specific [place] Urine Protein Urine Glucose (UA) Urine Ketones Urine Occult Blood Urine Nitrite Urine Bilirubin Urine Urobilinogen Ur Leukocyte Esterase Urine RBC Urine WBC Ur Squamous Epith Cells Urine Bacteria Urine Mucus SANDRA Screen Pending LEAH-1 Antibody Pending SS-A/Ro IgG Antibody Pending SS-B/La IgG Antibody Pending Sm (Ramires) Antibody Pending PRESSED OR BLOWN GLASS WORKER Antibody Pending Scl-70 Scleroderma Ab Pending Double Strand DNA Ab Pending Centromere B Antibody Pending RPR 10/07/18 05:15 WBC RBC Hgb Hct MCV MCH MCHC RDW RDW Differential Plt Count MPV Immature Gran % (Auto) Neut % (Auto) Lymph % (Auto) [place] % (Auto) Eos % (Auto) Baso % (Auto) Absolute Neuts (auto) Absolute Lymphs (auto) Total Counted ESR PT INR Sodium Potassium Chloride Carbon Dioxide Anion Gap BUN Creatinine Estim Creat Clear Calc Est GFR (MDRD) Af Amer Est GFR (MDRD) Non-Af BUN/Creatinine Ratio Glucose Calcium Magnesium 2.1 Total Bilirubin Direct Bilirubin AST ALT Alkaline Phosphatase Ammonia Troponin I C-React Prot Ext Range Total Protein Albumin Globulin Triglycerides Cholesterol LDL Cholesterol VLDL Cholesterol HDL Cholesterol Vitamin B12 Folate 45.70 TSH Free T4 0.96 Urine Color Urine Clarity Urine pH Ur Specific [place] Urine Protein Urine Glucose (UA) Urine Ketones Urine Occult Blood Urine Nitrite Urine Bilirubin Urine Urobilinogen Ur Leukocyte Esterase Urine RBC Urine WBC Ur Squamous Epith Cells Urine Bacteria Urine Mucus SANDRA Screen LEAH-1 Antibody SS-A/Ro IgG Antibody SS-B/La IgG Antibody Sm (Ramires) Antibody PRESSED OR BLOWN GLASS WORKER Antibody Scl-70 Scleroderma Ab Double Strand DNA Ab Centromere B Antibody RPR Medical Necessity - Tobacco Use Smoking Status: Never smoker Tobacco Use: Non-smoker Assessment/Plan All Active Problems (Last Reviewed 10/07/18 @ 01:51 by Caitie Amezquita DO) Aphasia (Acute) Altered mental status (Acute) Subtherapeutic international normalized ratio (INR) (Acute) Acute systolic CHF (congestive heart failure) (Resolved) Atrial fibrillation with RVR (Resolved) History of breast cancer (Resolved) History of right mastectomy (Resolved) Rectal pain (Resolved) 1. Aphasia/altered mental status-rule out CVA. Possible metabolic encephalopathy due to acute UTI and home narcotic regimen. Neurology consulted. MRI of brain, MRI of C-spine, MRA of head and neck pending. Brain CT with c hronic changes. PT/OT/ST. Recommend outpatient follow-up with neuro for evaluation for dementia. Has been reports ongoing confusion. Continue aspirin, statin. 2. Chronic severe back pain with radiation to right thigh, vaginal and rectal pain- MRI lumbar spine pending. Initiated on gabapentin 200 mg nightly. 3. Acute UTI-UA +, culture pending. Continue IV Rocephin. 4. Debility with recurrent falls- PT/OT. 5. Cardiomyopathy-echocardiogram March 2018 with EF 25%, moderate mitral valve insufficiency, moderate tricuspid valve insufficiency, mild to moderate aortic valve insufficiency, RVSP estimated to be 45mmHg. Follows with Dr. Bullard. Continue home regimen. 6. Paroxysmal atrial fibrillation with subtherapeutic INR-Coumadin held prior to admission due to upcoming dental procedure. Patient follows with Dr. Bullard. 7. Depression-continue home paroxetine regimen. 8. Hypertension-stable, continue home amiodarone, carvedilol, Lasix regimen. 9. Central sleep apnea DVT prophylaxis-therapeutic Lovenox. This patient was seen by CHICO Garcia under the supervision of Dr. Espinoza.
--- NOTE | 2018-10-07 14:17 | NURSING ---
Student nurse charting reviewed and appropriate.
--- NOTE | 2018-10-07 14:54 | NURSING ---
Reviewed and agreed on all charting with Ann Ivy RN
--- NOTE | 2018-10-07 15:00 | NURSING ---
this nurse taking over pt care
[2018-10-07] MEDS: Enoxaparin 60 MG/0.6 ML Syringe SC (17:36)
[2018-10-07 19:57] LABS: Amphetamine Urine VISTA NEGATIVE (<1000 ng/mL); Barbiturate Urine VISTA NEGATIVE (< 200 ng/mL); Benzodiazepine Urine VISTA NEGATIVE (< 200 ng/mL); Cocaine Urine VISTA NEGATIVE (< 300 ng/mL); Ecstacy Urine VISTA NEGATIVE (< 500 ng/mL); Methadone Urine VISTA NEGATIVE (< 300 ng/mL); PCP Urine VISTA NEGATIVE (< 25 ng/mL); THC Urine VISTA NEGATIVE (< 50 ng/mL); Vista UDS pH Range 6
[2018-10-07] MEDS: Magnesium Oxide 400 MG Tablet PO (21:33)
[2018-10-07] MEDS: Atorvastatin Calcium 10 MG Tablet PO (21:33)
[2018-10-08] VITALS (7 sets, daily range): BP systolic 118–153; BP diastolic 39–60; PULSE 48–60; RESP 11–18; TEMP 36.8–37.1; O2SAT 91–95; BMI 25.8
[2018-10-08 02:33] LABS: Rapid Plasmin Reagin (RPR) NONREACTIVE (NONREACTIVE)
[2018-10-08 06:15] LABS: Absolute Neutrophil Count 2.3 X10^3/uL (2.0-7.7); Basophil# 0.07 X10^3/uL; Basophil% 1.5 % (0-1); Eosinophil# 0.25 X10^3/uL; Eosinophils% 5.3 % (0-5); Hematocrit 34.6 % (37-47); Hemoglobin 11.1 g/dl (12.0-15.0); Lymphocyte % 29.5 % (19-41); Mean Corp Hgb Conc 32.1 g/gl (32-36); Mean Corpuscular Hgb 32.2 pg (27.0-32.0); Mean Corpuscular Volume 100.3 fL (81-99); Mean Platelet Vol. 11.1 fl (6.2-12.0); Monocyte# 0.68 X10^3/uL; Monocyte% 14.3 % (0-10); Neutrophil # 2.33 X10^3/uL (2.7-7.7); Neutrophil % 49.2 % (47-70); Platelet Count 155 K/mm3 (150-450); RBC Distribution Width CV 13.8 % (11.6-14.6); RBC Distribution Width SD 49.3 fl (35.1-43.9); Red Blood Count 3.45 M/mm3 (4.2-5.4); White Blood Count 4.7 K/mm3 (4.4-11.0)
[2018-10-08 06:23] LABS: POSITIVE COUNT NO; POSITIVE DIFFERENTIAL NO; POSITIVE MORPHOLOGY NO
[2018-10-08 06:37] LABS: Anion Gap 7 (5-15); BUN 18 mg/dL (7-18); Calcium,Total 8.3 mg/dL (8.5-10.1); Chloride 114 mmol/L (98-107); EST Glomerular Filtration Rate 35 mL/min (>60); Est Glom Filt Rate - Afr Amer 43 mL/min (>60); Estimated Creatinine Clearance 23.26 ml/min; Glucose 91 mg/dL (74-106); Potassium 4.2 mmol/L (3.5-5.1); Sodium Level 145 mmol/L (136-145)
[2018-10-08] MEDS: Albuterol 2.5 MG/3 ML VIAL.NEB. INHALATION ×2 (06:48→11:29)
[2018-10-08] MEDS: Aspirin E.C. 81 MG Tablet PO (10:17)
[2018-10-08] MEDS: Multivitamins,Therapeutic Tablet 1 TABLET PO (10:17)
[2018-10-08] MEDS: Furosemide 40 MG Tablet PO (10:17)
[2018-10-08] MEDS: Calcium Carb/Vitamin D 1 TABLET Tablet PO ×2 (10:18→12:36)
[2018-10-08] MEDS: Amiodarone 200 MG Tablet PO (10:19)
[2018-10-08] MEDS: Carvedilol 12.5 MG Tablet 6.25 MG PO (10:19)
[2018-10-08] MEDS: PARoxetine 10 MG Tablet PO (10:21)
[2018-10-08] MEDS: Celecoxib 200 MG Capsule PO (10:21)
[2018-10-08] MEDS: Ceftriaxone 1 GM/50 ML BAG IV (10:22)
[2018-10-08] MEDS: Psyllium 1 PACKET PO (10:22)
--- NOTE | 2018-10-08 11:00 | CASEMGMT ---
LIAZNDRO CONTRERAS assessment: Face to Face with patient for initial transition planning/care coordination assessment. LIZANDRO CONTRERAS introduced self and role at [facility], pt voices understanding and consents to assessment at this time. Pt is sitting up in chair in no distress at this time. Pt is A/Ox4 at this time and answers all questions appropriately at this time. Pt's , Dragan Ramirez, is at bedside during assessment and answers most questions for pt at this time. Care providers, pharmacy, and demographics verified at this time. PCP: Vladislav Specialists: Juan Miguel-cardio; Brian-pulm; Kj-uro; rectal surgeon in [facility] Pharmacy: [facility] Insurance: MCR A/B, [employer] Prescription Benefit: MCR D Living Will/HPOA: states pt has HPOA and he is her HPOA. HPOA is not on file with [facility] at this time. LNOK: Dragan Ramirez, Living Arrangements: Pt lives with in 2 story home with stairlift and states no concerns at home at this time. Transportation: Pt's drives and states no transportation concerns at this time. DME/HHC: Pt has the following DME: grab bars, walker, stairlift, and cpap thru [employer]. Pt has no hx of HHC or SNF in the past. Therapy is recommending that pt go to SNF/inpt rehab at discharge. Pt/ aware at this time and pt/ decline SNF at this time. This RN DIANE offered HHC and outpt therapy at this time and pt/ decline all at this time. Advised pt/ that if they change their mind regarding therapy to call Dr. Loomis for order, voice understanding. Pt/ voice no concerns with pt going home at discharge at this time. Pt is retired. Pt does not smoke or drink ETOH. Pt/ voice no further concerns/needs at this time. Advised pt/ to ask for CM if any further questions/concerns/needs arise, voices understanding. Plan: [place] LIZANDRO CONTRERAS
--- NOTE | 2018-10-08 11:51 | DCINST_ITS ---
- Discharge Diagnoses Current Active Problems: Current Active and Chronic Problems (Last Reviewed 10/07/18 @ 01:51 by Caitie Amezquita DO) Aphasia (Acute) Altered mental status (Acute) You will use the following diet at home:: Cardiac Discharge Activity: Return to Normal Activity Call your doctor if you observe: Numbness or Tingling, Shortness of breath, Dizziness, Fainting spells Allergies/Adverse Reactions: Allergies Penicillins [PCN] Allergy (Verified 03/05/18 10:33) Rash Medications to take at Discharge Calcium Citrate/Vitamin D3 [Calcium Citrate - Vit D Caplet] 315 ea PO TIDCM 01/05/17 Carvedilol [Coreg (Beta Kori)] 6.25 mg PO BID 01/05/17 Celecoxib [Celebrex] 200 mg PO DAILY 01/05/17 Cholecalciferol (Vitamin D3) [Vitamin D3] 2,000 unit PO DAILY 01/05/17 Paroxetine Mesylate [Brisdelle] 7.5 mg PO DAILY 01/05/17 multivitamin tablet 1 tab PO QDAY 03/05/18 psyllium husk (with sugar) 3.4 gram/12 gram oral powder 2 tsp PO DAILY g 03/05/18 warfarin 2.5 mg tablet 1.25 mg PO DAILY 03/31/18 potassium chloride ER 10 mEq tablet,extended release(part/cryst) 10 meq PO DAILYCM #90 tab 07/21/18 oxycodone 5 mg tablet 5 mg PO BID tab 07/23/18 furosemide 40 mg tablet 40 mg PO SUTUTHSA #60 tab 09/27/18 Albuterol Sulfate [Ventolin Hfa] 1 puff INHALATION TID 10/06/18 Amiodarone HCl [Cordarone] 200 mg PO DAILY 10/06/18 Aspirin E.C. [Ecotrin] 81 mg PO DAILY 10/06/18 Carisoprodol 350 mg PO QHS 10/06/18 Dymista 1 puff NASAL BID 10/06/18 Magnesium Oxide [Mag-Ox 400] 400 mg PO QHS 10/06/18 Methenam/Sod Phos/Mblue/Hyoscy [Urogesic-Blue Tablet] 1 tab PO 4X/DAY 10/06/18 Atorvastatin Calcium [Lipitor] 10 mg PO QHS #30 tablet 10/08/18 Cephalexin [Keflex] 500 mg PO Q12 #12 capsule 10/08/18 Gabapentin [Neurontin] 200 mg PO QHS #60 capsule 10/08/18 The following prescriptions were given: Atorvastatin Calcium [Lipitor] 10 mg PO QHS #30 tablet Cephalexin [Keflex] 500 mg PO Q12 #12 capsule Gabapentin [Neurontin] 200 mg PO QHS #60 capsule Primary Care Physician: Ben Loomis MD [Primary Care Provider] - Please follow up with your Primary Care Physician in: 1 Week Test Results: Test results from this visit will be discussed in further detail at your follow- up appointment, if applicable. Please Follow Up With: Freddy Peña MD When: 2-3 Weeks Proposed Discharge Date: 10/08/18
--- NOTE | 2018-10-08 11:54 | DS.PCM_ITS ---
Addendum entered and electronically signed by CHICO Garcia 10/08/18 12:15: Code Visit TIA ruled out per neurology. Original Note: Discharge Date and Diagnosis Date of Admission: 10/06/18 Date of Discharge: 10/08/18 - Primary Discharge Diagnosis Active and Suspected Problems (Last Reviewed 10/07/18 @ 01:51 by Caitie Amezquita DO) 1. Acute metabolic encephalopathy, secondary to acute Klebsiella UTI with suspicion for TIA as well-acute CVA ruled out. 2. Acute Klebsiella UTI 3. Chronic severe back pain 4. Debility with recurrent falls 5. Cardiomyopathy 6. Paroxysmal atrial fibrillation with subtherapeutic INR 7. Depression 8. Hypertension 9. 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 Electronically Signed: Devon Pittman MD at 18:24 EST , Service support , Chest X-Ray 10/06/18 18:09 IMPRESSION: No acute pulmonary process Electronically Signed: Devon Pittman MD at 18:32 EST , Service support , Brain MRI 10/07/18 05:55 IMPRESSION: Advanced periventricular white matter ischemic changes without evidence for acute infarct Electronically Signed: John Horner MD at 16:15 EST , Service support , Head MRA 10/07/18 05:55 IMPRESSION: Mild atherosclerotic disease. No evidence for hemodynamically significant stenosis or occlusive thrombus Electronically Signed: John Horner MD at 16:41 EST , Service support , Neck MRA 10/07/18 05:55 IMPRESSION: Limited study due to artifact but no definitive evidence for hemodynamically significant stenosis utilizing NASCET criteria Ultrasound or CTA would be helpful for further evaluation if clinically warranted Electronically Signed: John Horner MD at 16:48 EST , Service support , Lumbar Spine MRI 10/07/18 06:50 IMPRESSION: Moderately severe multilevel degenerative disc disease and degenerative arthropathy of the lumbar spine with acquired canal stenosis, and neural foraminal narrowing as described. Electronically Signed: Angela Spaulding MD at 4:31 EST , Service support , Cervical Spine MRI 10/07/18 10:48 IMPRESSION: No evidence for acute fracture or subluxation. Advanced spondylosis and multilevel spinal stenosis due to disc and bony hypertrophy Electronically Signed: John Horner MD at 19:07 EST , Service support , Dr. Puckett- Neurology Operations: None Procedures: None Summary of Care Provided: The patient is a 83 year old F admitted 10/06/2018 due to speech difficulty and confusion. 1. Acute encephalopathy, multifactorial. Metabolic secondary to acute Klebsiella UTI. Possible TIA as well. Neurology consulted. MRI of brain negative. MRA of head and neck with no evidence of significant stenosis. Acute CVA ruled out. Recommend outpatient follow-up with neuro for evaluation for dementia. Has been reports ongoing confusion. Continue aspirin, statin. Follow-up with Dr. Peña in 2-3 weeks. 2. Chronic severe back pain with radiation to right thigh, vaginal and rectal pain- MRI lumbar spine showed moderately severe multilevel degenerative disc disease and degenerative arthropathy of the lumbar spine with acquired canal stenosis, and neural foraminal narrowing. Initiated on gabapentin 200 mg nightly. Patient reports back pain is improved. Discussed referral to neurosurgeon which patient and declined. 3. Acute Klebsiella UTI-patient received IV Rocephin during admission. Keflex 500 mg twice daily for 6 days at discharge. 4. Debility with recurrent falls- PT/OT. Patient and declined home health and skilled placement. 5. Cardiomyopathy-echocardiogram March 2018 with EF 25%, moderate mitral valve insufficiency, moderate tricuspid valve insufficiency, mild to moderate aortic valve insufficiency, RVSP estimated to be 45mmHg. Follows with Dr. Bullard. 6. Paroxysmal atrial fibrillation with subtherapeutic INR-Coumadin held prior to admission due to upcoming dental procedure. Patient follows with Dr. Bullard. Continue Coumadin regimen. 7. Depression-continue home paroxetine regimen. 8. Hypertension-stable, continue home amiodarone, carvedilol, Lasix regimen. 9. Central sleep apnea General: Alert, Oriented x3, Cooperative HEENT: Atraumatic, PERRLA, EOMI, Normocephalic Neck: Supple, No JVD, Negative Carotid Bruits Lungs: Clear to auscultation, Normal air movement Cardiovascular: Regular rate, Regular Rhythm, Normal S1, Normal S2, No murmurs Abdomen: Bowel Sounds Present, Soft, Non Tender, Non-Distended Extremities: No clubbing, No cyanosis, No edema, Capillary Refill Less than 3 Seconds Skin: No rashes, No breakdown Musculoskeletal: No Tenderness to Palpation of Joints or Extremities Neurological: Cranial nerves II-XII grossly intact Psych/Mental Status: Normal Affect, Appropriate Patient seen and examined prior to discharge. Physical assessment as noted above. Patient is stable for discharge with follow up recommendations as noted above. This patient was seen by CHICO Garcia under the supervision of Dr. Espinoza. - Physical Exam Vital Signs Temp Pulse Resp BP Pulse Ox 98.3 F 57 L 18 153/60 H 95 10/08/18 09:22 10/08/18 09:22 10/08/18 11:30 10/08/18 09:22 10/08/18 09:22 Oxygen Flow Rate (L/min) 2 Oxygen Delivery Method Room Air Weight: 141 lb 1.533 oz Body Mass Index (BMI) 25.8 Intake and Output for Last 24 Hours 10/06/18 10/07/18 10/08/18 23:59 23:59 23:59 Intake Total 1712 / 1712 50 / 50 Balance 1712 / 1712 50 / 50 Microbiology Past 72 Hours 10/06/18 19:15 Urine Culture - Final Urine Catheter - Catheter Klebsiella pneumoniae sp pneum Laboratory Tests Past 24 Hrs 10/06/18 10/07/18 10/08/18 19:52 19:20 05:50 WBC 4.7 RBC 3.45 L Hgb 11.1 L Hct 34.6 L MCV 100.3 H MCH 32.2 H MCHC 32.1 RDW 13.8 RDW Differential 49.3 H Plt Count 155 MPV 11.1 Immature Gran % (Auto) 0.200 Neut % (Auto) 49.2 Lymph % (Auto) 29.5 [place] % (Auto) 14.3 H Eos % (Auto) 5.3 H Baso % (Auto) 1.5 H Absolute Neuts (auto) 2.3 Absolute Lymphs (auto) 1.40 Total Counted Not Reportable Sodium Potassium Chloride Carbon Dioxide Anion Gap BUN Creatinine Estim Creat Clear Calc Est GFR (MDRD) Af Amer Est GFR (MDRD) Non-Af BUN/Creatinine Ratio Glucose Calcium Urine Opiates Screen NEGATIVE Urine Methadone Screen NEGATIVE Ur Barbiturates Screen NEGATIVE Ur Phencyclidine Scrn NEGATIVE Ur Amphetamines Screen NEGATIVE U Methamphetamin-MDMA NEGATIVE U Benzodiazepines Scrn NEGATIVE Urine Cocaine Screen NEGATIVE U Cannabinoids Screen NEGATIVE Ur Drug Screen Comment RPR NONREACTIVE 10/08/18 05:50 WBC RBC Hgb Hct MCV MCH MCHC RDW RDW Differential Plt Count MPV Immature Gran % (Auto) Neut % (Auto) Lymph % (Auto) [place] % (Auto) Eos % (Auto) Baso % (Auto) Absolute Neuts (auto) Absolute Lymphs (auto) Total Counted Sodium 145 Potassium 4.2 Chloride 114 H Carbon Dioxide 24.0 Anion Gap 7 BUN 18 Creatinine 1.50 H Estim Creat Clear Calc 23.26 Est GFR (MDRD) Af Amer 43 L Est GFR (MDRD) Non-Af 35 L BUN/Creatinine Ratio 12.0 Glucose 91 Calcium 8.3 L Urine Opiates Screen Urine Methadone Screen Ur Barbiturates Screen Ur Phencyclidine Scrn Ur Amphetamines Screen U Methamphetamin-MDMA U Benzodiazepines Scrn Urine Cocaine Screen U Cannabinoids Screen Ur Drug Screen Comment RPR Discharge Diet: Low fat/ Low Cholesterol Discharge Activity: Return to Normal Activity Call your doctor if you observe: Numbness or Tingling, Shortness of breath, Dizziness, Fainting spells Home Medications: Medications to take at Discharge Calcium Citrate/Vitamin D3 [Calcium Citrate - Vit D Caplet] 315 ea PO TIDCM 01/05/17 Carvedilol [Coreg (Beta Kori)] 6.25 mg PO BID 01/05/17 Celecoxib [Celebrex] 200 mg PO DAILY 01/05/17 Cholecalciferol (Vitamin D3) [Vitamin D3] 2,000 unit PO DAILY 01/05/17 Paroxetine Mesylate [Brisdelle] 7.5 mg PO DAILY 01/05/17 multivitamin tablet 1 tab PO QDAY 03/05/18 psyllium husk (with sugar) 3.4 gram/12 gram oral powder 2 tsp PO DAILY g 03/05/18 warfarin 2.5 mg tablet 1.25 mg PO DAILY 03/31/18 potassium chloride ER 10 mEq tablet,extended release(part/cryst) 10 meq PO DAILYCM #90 tab 07/21/18 oxycodone 5 mg tablet 5 mg PO BID tab 07/23/18 furosemide 40 mg tablet 40 mg PO SUTUTHSA #60 tab 09/27/18 Albuterol Sulfate [Ventolin Hfa] 1 puff INHALATION TID 10/06/18 Amiodarone HCl [Cordarone] 200 mg PO DAILY 10/06/18 Aspirin E.C. [Ecotrin] 81 mg PO DAILY 10/06/18 Carisoprodol 350 mg PO QHS 10/06/18 Dymista 1 puff NASAL BID 10/06/18 Magnesium Oxide [Mag-Ox 400] 400 mg PO QHS 10/06/18 [place]am/Sod Phos/Mblue/Hyoscy [Urogesic-Blue Tablet] 1 tab PO 4X/DAY 10/06/18 Atorvastatin Calcium [Lipitor] 10 mg PO QHS #30 tablet 10/08/18 Cephalexin [Keflex] 500 mg PO Q12 #12 capsule 10/08/18 Gabapentin [Neurontin] 200 mg PO QHS #60 capsule 10/08/18 Following Prescrptions Were Given to Patient: Atorvastatin Calcium [Lipitor] 10 mg PO QHS #30 tablet Cephalexin [Keflex] 500 mg PO Q12 #12 capsule Gabapentin [Neurontin] 200 mg PO QHS #60 capsule Primary Care Physician: Ben Loomis MD [Primary Care Provider] - Please follow up with your Primary Care Physician in: 1 Week Please Follow Up With: Freddy Peña MD When: 2-3 Weeks Disposition: Home Minutes spent on discharge:: 35 Patient Condition:: Stable Medical Necessity - Tobacco Use Smoking Status: Never smoker Tobacco Use: Non-smoker Meaningful Use Info Meaningful Use Diagnoses (Choose all that apply): None applicable
--- NOTE | 2018-10-08 12:57 | PN.NEURO_ITS ---
Subjective: No Issues overnight. Care discussed with hospitalist. Per and patient her speech is back to baseline at present. Per speech disturbances lasted for more than 24 hrs and she presented with confusion, found to have UTI/KALEN and is being treated for the same. - Physical Exam General: Alert HEENT: Normocephalic Neck: Supple Lungs: Normal air movement Cardiovascular: Normal S1, Normal S2 Abdomen: Bowel Sounds Present Extremities: No cyanosis Neurological: - - consious, alert, CN 2-12 grossly intact, power 5/5 both UE/LE, plantars B/L flexor, denies any sensory loss, no cerebellar signs, Reflexes +2 brisk B/L B/S/T/K + A, gait deferred, no NR, no termors, tone normal both UE, asterexis present both UE at present Psych/Mental Status: Normal Affect Vital Signs Temp Pulse Resp BP Pulse Ox 98.3 F 57 L 18 153/60 H 95 10/08/18 09:22 10/08/18 09:22 10/08/18 11:30 10/08/18 09:22 10/08/18 09:22 Oxygen Flow Rate (L/min) 2 Oxygen Delivery Method Room Air Weight: 64 kg Body Mass Index (BMI) 25.8 Intake and Output for Last 24 Hours 10/06/18 10/07/18 10/08/18 23:59 23:59 23:59 Intake Total 1712 / 1712 290 / 290 Balance 1712 / 1712 290 / 290 Microbiology Past 72 Hours 10/06/18 19:15 Urine Culture - Final Urine Catheter - Catheter Klebsiella pneumoniae sp pneum Laboratory Tests Past 24 Hrs 10/06/18 10/07/18 10/08/18 19:52 19:20 05:50 WBC 4.7 RBC 3.45 L Hgb 11.1 L Hct 34.6 L MCV 100.3 H MCH 32.2 H MCHC 32.1 RDW 13.8 RDW Differential 49.3 H Plt Count 155 MPV 11.1 Immature Gran % (Auto) 0.200 Neut % (Auto) 49.2 Lymph % (Auto) 29.5 [place] % (Auto) 14.3 H Eos % (Auto) 5.3 H Baso % (Auto) 1.5 H Absolute Neuts (auto) 2.3 Absolute Lymphs (auto) 1.40 Total Counted Not Reportable Sodium Potassium Chloride Carbon Dioxide Anion Gap BUN Creatinine Estim Creat Clear Calc Est GFR (MDRD) Af Amer Est GFR (MDRD) Non-Af BUN/Creatinine Ratio Glucose Calcium Urine Opiates Screen NEGATIVE Urine Methadone Screen NEGATIVE Ur Barbiturates Screen NEGATIVE Ur Phencyclidine Scrn NEGATIVE Ur Amphetamines Screen NEGATIVE U Methamphetamin-MDMA NEGATIVE U Benzodiazepines Scrn NEGATIVE Urine Cocaine Screen NEGATIVE U Cannabinoids Screen NEGATIVE Ur Drug Screen Comment RPR NONREACTIVE 10/08/18 05:50 WBC RBC Hgb Hct MCV MCH MCHC RDW RDW Differential Plt Count MPV Immature Gran % (Auto) Neut % (Auto) Lymph % (Auto) [place] % (Auto) Eos % (Auto) Baso % (Auto) Absolute Neuts (auto) Absolute Lymphs (auto) Total Counted Sodium 145 Potassium 4.2 Chloride 114 H Carbon Dioxide 24.0 Anion Gap 7 BUN 18 Creatinine 1.50 H Estim Creat Clear Calc 23.26 Est GFR (MDRD) Af Amer 43 L Est GFR (MDRD) Non-Af 35 L BUN/Creatinine Ratio 12.0 Glucose 91 Calcium 8.3 L Urine Opiates Screen Urine Methadone Screen Ur Barbiturates Screen Ur Phencyclidine Scrn Ur Amphetamines Screen U Methamphetamin-MDMA U Benzodiazepines Scrn Urine Cocaine Screen U Cannabinoids Screen Ur Drug Screen Comment RPR Medical Necessity - Tobacco Use Smoking Status: Never smoker Tobacco Use: Non-smoker Assessment/Plan All Active Problems (Last Reviewed 10/07/18 @ 01:51 by Caitie Amezquita DO) Aphasia (Acute) Altered mental status (Acute) Subtherapeutic international normalized ratio (INR) (Acute) Acute systolic CHF (congestive heart failure) (Resolved) Atrial fibrillation with RVR (Resolved) History of breast cancer (Resolved) History of right mastectomy (Resolved) Rectal pain (Resolved) The patient is a 83 year old CF with PMH HTN, H/O right Breast cancer s/p mastectomy, Chronic systolic CHF, Afib on Coumadin, ? CKD admitted with AMS and speech disturbances. History is obtained from patient, her (Dr. 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 Per patient woke up in the morning yesterday (10/06/18) was confused, later in the afternoon he felt she had slurred speech and aphasia, and he feels she is much better this morning, per patient may be having long standing history of gait issues and balance issues which began around May 2005, initially he felt she was walking slow, when walked long distances would feel she needs to walk faster and faster, had multiple falls then, had about 6 falls this spring, got physical therapy, has not fallen since May this year (2018), had memory issues and feels she has issues with comprehension, denies any tremors, visual hallucinations or REM behavior sleep d/o. Per she has been tested in the past and has seen multiple Neurologists without any diagnosis. Per patient she does not have any CESAR, dizziness, but complaints of chronic left eye vision disturbances, chronic neck pain and low back pain with radicular symptoms and right thigh pain, occasionally feels her feet are numb. Denies any focal motor weakness, sensory loss or speech disturbances. Per her Coumadin was stopped recently for a dental procedure, INR was subtherapeutic on admission, Labs on admission reviewed UA- Nitrites present, LE 100, Bacteria- rare, Cr-1.76, CRP-10.5, Ammonia 17, AST/ALT-29/33, LDL-89, WBC-8.2, Vitamin B12-372, TSH-4.32 Impression Metabolic Encephalopathy- likely secondary to UTI/KALEN Cervical/Lumbar stenosis R/O Neuropathy Plan -On Coumadin, INR subtherapeutic, discussed about changing to NOACs like Eliquis, but not interested at present. Follows up with Dr. Bullard and will defer to hospitalist and Cardiology -Statins if no contraindication -ASA 81 mg PO once daily, bridge with Coumadin till INR becomes therapeutic -MRI brain w/o contrast, MRA head/neck- nothing acute -MRI C spine -reported Advanced spondylosis and multilevel spinal stenosis due to disc and bony hypertrophy -MRI L spine w/o contrast- reported Moderately severe multilevel degenerative disc disease and degenerative arthropathy of the lumbar spine with acquired canal stenosis, and neural foraminal narrowing -Recommend spine surgery consult but wants to hold off at present. -Labs reviewed- UA- Nitrites present, LE 100, Bacteria-rare, Cr-1.76, CRP-10.5, Ammonia 17, AST/ALT-29/33, LDL-89, WBC-8.2, Vitamin B12-372, TSH-4.32 -Check SANDRA/ANCA/RF/SSa/SSb AB/SPEP with ROCHELLE and UPEP with ROCHELLE -Check EMG/NCS both LE as outpatient -May need further evaluation for dementia as outpatient in form of neurocognitive evaluation -TTE and Hba1c -PT/OT/ST -Fall precautions -Further medical management per hospitalist team -Follow up with Neurology as outpatient in 4-6 weeks for further evaluation. -Please call with questions if any -Thank you for allowing us to participate in patient's care and management .
[2018-10-10 08:59] LABS: ANTINUCLEAR ANTIBODIES DIRECT Negative (Negative)
--- NOTE | 2018-10-11 16:15 | CASEMGMT ---
LIZANDRO CONTRERAS Discharge F/U Phone Call LACE: 9 Strata: 3 Discharge date: 10/10/18 Call date: 10/11/18 Call time: 1615 Duration: 2 minutes Admission dx: Expressive aphasia Pt's answers phone and states pt has been 'doing alright' since discharge and everything is 'going smoothly.' states no questions regarding discharge instructions or medications at this time. states that him and his have multiple f/u appt's in the next several weeks and they plan on keeping them. states no suggestions for [facility] at this time and states the 'hospital runs like a hospital should' and they were 'most impressed.' states no further questions/concerns/needs at this time. [place] LIZANDRO CONTRERAS
== END 2018-10-08 11:49 | disposition home or self-care (01) | DRG 689 ==
LOC: ED 18:58 → PCU 21:19
PROVIDERS: Admitting Provider Internal Medicine; Emergency Provider Emergency Medicine; Family Provider Internal Medicine; PCP Internal Medicine; Visit Provider Family Medicine
DX: N39.0 Urinary tract infection, site not specified (principal); G93.41 Metabolic encephalopathy; I13.0 Hypertensive heart and chronic kidney disease with heart failure and stage 1 through stage 4 chronic kidney disease, or unspecified chronic kidney disease; R47.01 Aphasia; I42.9 Cardiomyopathy, unspecified; G25.9 Extrapyramidal and movement disorder, unspecified; I50.22 Chronic systolic (congestive) heart failure; B96.1 Klebsiella pneumoniae [K. pneumoniae] as the cause of diseases classified elsewhere; F03.90 Unspecified dementia, unspecified severity, without behavioral disturbance, psychotic disturbance, mood disturbance, and anxiety; F32.9 Major depressive disorder, single episode, unspecified; F41.9 Anxiety disorder, unspecified; E03.9 Hypothyroidism, unspecified; I48.0 Paroxysmal atrial fibrillation; M48.061 Spinal stenosis, lumbar region without neurogenic claudication; G47.31 Primary central sleep apnea; R29.6 Repeated falls; R53.81 Other malaise; I36.1 Nonrheumatic tricuspid (valve) insufficiency; I35.1 Nonrheumatic aortic (valve) insufficiency; I34.0 Nonrheumatic mitral (valve) insufficiency; I27.21 Secondary pulmonary arterial hypertension; M54.9 Dorsalgia, unspecified; G89.29 Other chronic pain; Z85.3 Personal history of malignant neoplasm of breast; Z79.01 Long term (current) use of anticoagulants; Z79.899 Other long term (current) drug therapy; K62.89 Other specified diseases of anus and rectum; Z90.11 Acquired absence of right breast and nipple; M51.36 Other intervertebral disc degeneration, lumbar region
CPT/HCPCS: 36415; 70450; 70544; 70547; 70551; 71046; 72141; 72148; 80048; 80061; 80076; 80307; 81001; 82140; 82607; 82746; 83735; 84439; 84443; 84484; 85025; 85610; 85652; 86038; 86140; 86225; 86235; 86592; 87077; 87086; 87088; 87186; 92523; 92526; 93005; 94640; 97162; 97165; 97530; 97802; 99284; J7030; A4216; J0744

== ENCOUNTER 2018-10-24 10:04 | Inpatient (IN) | payer MEDICARE, OTHER, SELFPAY ==
[2018-10-08 10:43] VITALS: BMI 25.8
[2018-10-24] VITALS (8 sets, daily range): BP systolic 115–151; BP diastolic 64–71; PULSE 51–59; RESP 16–18; TEMP 36.4–37.1; O2SAT 96–100; BMI 25.0; BMI 25.4; BMI 63.1
--- NOTE | 2018-10-24 10:29 | CT_ITS ---
STUDY: CT BRAIN WITHOUT CONTRAST REASON FOR EXAM: Female, 83 years old. Confusion RADIATION DOSAGE (If Supplied By Facility): CTDIvol = ( 44.99 ) mGy, DLP = ( 745.49 ) mGycm TECHNIQUE: Transaxial CT imaging of the brain was performed without administration of intravenous contrast material. Individualized dose optimization techniques were used for this CT. COMPARISON: 10/06/2018 FINDINGS: Normal soft tissue structures. Normal calvarium. There is mild cerebral atrophy with widening of the extra-axial spaces and ventricular dilatation. There are areas of decreased attenuation within the white matter tracts of the supratentorial brain, consistent with microvascular disease changes. Normal basal ganglia and thalami. Normal brainstem. Normal cerebellum. There is no intracranial hemorrhage. There are no findings of an acute ischemic infarction. Normal visualized paranasal sinuses. CT/Brain/Head without Contrast IMPRESSION: 1. No acute intracranial hemorrhage or mass effect. Stable exam. 2. Central parenchymal volume loss. White matter changes that are nonspecific but most commonly associated with chronic small vessel ischemic disease. Electronically Signed: Kyle Wright MD at 11:04 EST , Service support ,
--- NOTE | 2018-10-24 10:39 | ED.VISSUMM ---
- ER Visit Summary Date of Service: 10/24/18 Chief Complaint: [] Difficulty with speech when she woke up today History of Present Illness: The patient is a 83 F [] history of a aphasia October 06 or so requiring admission to [facility], per the who is a physician indicates that her studies were generally unremarkable including MRI head neck etc., there was some concern she may have had a TIA or issues related to UTI, she also has history of pelvic pain that is unspecified, gait disturbance, she was seen by a neurologist at [facility] post that visit no specific diagnosis was established later gait abnormalities, the neurologist there agreed that she should be managed with Coumadin and aspirin related to the TIA she had prior to that visit. Per the she went to bed feeling fine woke with difficulty speaking confused there is been no trauma no fever no cough no complaints otherwise her bowel and bladder habits have been unremarkable, history of CHF and A. fib all stable Physical Examination: [] 115/71 afebrile, EKG shows a sinus rhythm 50s no injury pattern left bundle General, no distress resting comfortably HEENT is generally unremarkable The neck is supple no adenopathy Cardiovascular, regular rate and rhythm Lungs, clear bilateral Abdomen, soft nontender Extremities, no clubbing cyanosis or edema Neurologic, awake alert, she knows her 's name is Avtar she does not know her own name her speech is halting lacks any fluidity, she was able to show me her thumb, she was able to follow commands, she has no motor deficit, other than the speech is no cranial nerve deficit, her NIH is about a 1 or 2 related to the speech deficit which basically consists of halting and at times babbling responses, her airways intact appropriately moving all 4 extremities Test Results: [] Emergency Department Course and Treatment: [] Spoke with Dr. Rubalcava of neurology discussed with the , her baseline creatinine is about 1.5 GFR about 35 at this time we will forego the CTA of her head as neurology will arrange for her to have an MRI of her brain later today will obtain MRI results to neurology, will check screening labs plain head CT and arrange for admission Treatment Plan: [] Please note the patient's creatinine today returned at 1.85 IV fluids have been started head CT chest x-ray other screening labs generally unremarkable see those reports Disposition: [] Admit stable Impression: [] aphasia on awakening today, history of A. fib, CHF, pelvic pain, gait abnormalities This note was generated with [employer] dictation software. It may contain incorrect words, spelling, and punctuation that were not noted in review of the chart prior to signing ED Disposition - Plan for ED Patient: Chief Complaint: Confusion Referrals: Ben Loomis MD [Primary Care Provider] -
--- NOTE | 2018-10-24 10:45 | RAD_ITS ---
STUDY: X-RAY CHEST REASON FOR EXAM: Female, 83 years old. Chest pain TECHNIQUE: AP COMPARISON: None. FINDINGS: EKG leads project over the chest. The lungs are clear and expanded. There is no demonstrated pleural abnormality. There is mild cardiac enlargement. Normal mediastinum and adithya. Normal visualized pulmonary arteries. There is atherosclerotic tortuosity of the aortic arch and descending thoracic aorta. No acute bony process. There is no demonstrated abnormality of the visualized soft tissue structures of the upper abdomen. RAD/Chest 1 View (Portable) IMPRESSION: Stable, nonacute portable x-ray examination of the chest. Electronically Signed: Kyle Wright MD at 11:06 EST , Service support ,
[2018-10-24 10:58] LABS: Absolute Lymphocyte Count 0.95 X10^3/ul (0.83-4.51); Basophil# 0.04 X10^3/uL; Basophil% 0.7 % (0-1); Eosinophil# 0.21 X10^3/uL; Eosinophils% 3.6 % (0-5); Hemoglobin 13.4 g/dl (12.0-15.0); Lymphocyte # 0.95 X10^3/ul (4.0); Lymphocyte % 16.5 % (19-41); Mean Corp Hgb Conc 33.5 g/gl (32-36); Mean Corpuscular Hgb 33.3 pg (27.0-32.0); Mean Corpuscular Volume 99.3 fL (81-99); Mean Platelet Vol. 11.3 fl (6.2-12.0); Monocyte# 0.54 X10^3/uL; Monocyte% 9.4 % (0-10); Neutrophil # 4.01 X10^3/uL (2.7-7.7); Neutrophil % 69.6 % (47-70); Platelet Count 191 K/mm3 (150-450); RBC Distribution Width SD 50.2 fl (35.1-43.9); Red Blood Count 4.03 M/mm3 (4.2-5.4); White Blood Count 5.8 K/mm3 (4.4-11.0)
[2018-10-24 10:59] LABS: POSITIVE COUNT NO; POSITIVE DIFFERENTIAL NO; POSITIVE MORPHOLOGY NO
[2018-10-24 11:05] LABS: International Normalized Ratio 1.7; Prothrombin Time (Protime)PT. 20.1 SECONDS (11.7-14.9)
[2018-10-24 11:16] LABS: Anion Gap 7 (5-15); BUN 21 mg/dL (7-18); BUN/Creat Ratio 11.4 RATIO (10-20); Chloride 108 mmol/L (98-107); Creatinine, Serum 1.84 mg/dL (0.55-1.02); EST Glomerular Filtration Rate 28 mL/min (>60); Est Glom Filt Rate - Afr Amer 34 mL/min (>60); Estimated Creatinine Clearance 18.97 ml/min; Glucose 113 mg/dL (74-106); Potassium 4.5 mmol/L (3.5-5.1); Sodium Level 141 mmol/L (136-145)
[2018-10-24 11:45] LABS: BNP,B-Type NATRIURETIC PEPTIDE 354.9 pg/mL (0-100)
[2018-10-24 11:47] LABS: Bacteria 0 SEEN /hpf (None Seen); Mucous, Urine 0 SEEN /hpf (<or=2+); Red Blood Cells-Urine 0 SEEN /hpf (0-5); Squamous Epithelial Cells - UA 0 SEEN /hpf (5-10); White Blood Cells 0 SEEN /hpf (0-5)
[2018-10-24 11:48] LABS: Color, Urine Yellow (Yellow); Glucose, Dipstick Normal (Normal); Ketone-Dipstick Negative (Negative); Leukocyte Esterase-Dipstick Negative /ul (Negative); Nitrite-Dipstick Negative (Negative); Occult Blood-Urine Negative /ul (Negative); Protein-Dipstick Negative (Negative); Urine Bilirubin Dipstick Negative (Negative); Urine Clarity Clear (Clear); Urine Urobilinogen Normal (Normal)
--- NOTE | 2018-10-24 12:16 | PCM.HP.STD ---
Problem List (1) Encephalopathy acute Status: Acute History of Present Illness Date of Admission: 10/24/18 Chief Complaint: expressive aphasia. The patient is a 83 year old F who awoke this morning unable to speak. Patient was admitted earlier this month for similar symptoms and was evaluated for stroke which was negative. It is felt that her symptoms were attributable to urinary tract infection. Patient was doing fairly well. Patient at baseline has issues with confusion, such as when getting [place] cards ready patient was doing things such as forgetting to put a card into an envelope or forgetting to address an envelope. Patient has had more confusion as of late. Patient has had a history of falls as well 6 just this year. She now uses a walker which mitigates much falls. Patient's states that she had fallen previously forward and backwards. States that she also has difficulty negotiating up steps were her foot may be not be completely on step of any partly on the step. They have recently followed up with a movement disorder specialist at [facility] and I have undergone some testing there but no definitive diagnosis has been provided at this time just a range of diagnosis, including PSP, MSA and others. Patient's states that she still is confused at this time. 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 (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) Hypertension (Chronic) Central sleep apnea (Chronic) Medical History: Medical History (Last Reviewed 10/24/18 @ 12:20 by Jones Buckley DO) 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) I43 last ECHO with a 25% EF Secondary pulmonary arterial hypertension (Chronic) I27.21 Nonrheumatic aortic valve insufficiency (Chronic) I35.1 Nonrheumatic mitral (valve) insufficiency (Chronic) I34.0 Non-rheumatic tricuspid valve insufficiency (Chronic) I36.1 Paroxysmal atrial fibrillation (Chronic) I48.0 Chronic systolic (congestive) heart failure (Chronic) I50.22 senior living (current) use of anticoagulants (Chronic) Z79.01 Hypertension (Chronic) I10 Central sleep apnea (Chronic) G47.31 Anxiety and depression F41.9, F32.9 Joint pain M25.50 Acute systolic CHF (congestive heart failure) (Resolved) I50.21 Atrial fibrillation with RVR (Resolved) I48.91 Breast cancer C50.919 History of breast cancer (Resolved) Z85.3 Rectal pain (Resolved) K62.89 Joint pain (Inactive) M25.50 Allergies Penicillins [PCN] Allergy (Verified 10/24/18 10:12) Rash Home Medications: Ambulatory Orders Medication Instructions Recorded Calcium Citrate/Vitamin D3 315 ea PO TIDCM 01/05/17 [Calcium Citrate - Vit D Caplet] Carvedilol [Coreg (Beta Kori)] 6.25 mg PO BID 01/05/17 Celecoxib [Celebrex] 200 mg PO DAILY 01/05/17 Cholecalciferol (Vitamin D3) 2,000 unit PO DAILY 01/05/17 [Vitamin D3] Paroxetine Mesylate [Brisdelle] 7.5 mg PO DAILY 01/05/17 psyllium husk (with sugar) 3.4 2 tsp PO DAILY g 03/05/18 gram/12 gram oral powder warfarin 2.5 mg tablet 1.25 mg PO DAILY 03/31/18 oxycodone 5 mg tablet 5 mg PO BID tab 07/23/18 furosemide 40 mg tablet 40 mg PO SUTUTHSA #60 tab 09/27/18 Amiodarone HCl [Cordarone] 200 mg PO DAILY 10/06/18 Aspirin E.C. 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 These refer to the [facility] for further details. VTE Information - Inpt Only VTE Present on Admission: No VTE Mechan Device Prophylaxis: None VTE Pharm Prophylaxis ordered?: Yes - Physical Exam General: Alert, Confused HEENT: Atraumatic, PERRLA, EOMI, Normocephalic Oral: Moist Mucosa, No Gingival or Mucosal Lesions/ Ulcerations Neck: No Nodes, Thyroid Normal Size and Texture Lungs: Clear to auscultation, Normal air movement, No rhonchi, No wheeze Cardiovascular: Regular rate, Regular Rhythm, Normal S1, Normal S2, No murmurs Abdomen: Bowel Sounds Present, Soft, Non Tender, Non-Distended, No Hepato-splenomegaly Extremities: No edema, No Calf Tenderness Skin: No rashes, No breakdown Musculoskeletal: No Tenderness to Palpation of Joints or Extremities, No Muscle Wasting Neurological: Cranial nerves II-XII grossly intact, Deep Tendon Reflexes 2+/4 and Symmetrical, Neuro grossly intact, Motor Exam 5/5 strength throughout, - - NIH of 4: Patient had some slurred speech and had difficulty naming some objects presented to her. Psych/Mental Status: Normal Affect, Appropriate Vital Signs Temp Pulse Resp BP Pulse Ox 36.4 C L 55 L 16 115/71 100 10/24/18 10:05 10/24/18 10:05 10/24/18 10:05 10/24/18 10:05 10/24/18 10:23 Oxygen Flow Rate (L/min) 2 Oxygen Delivery Method Nasal Cannula Weight: 62.064 kg Body Mass Index (BMI) 25.0 Laboratory Tests Past 24 Hrs 10/24/18 10/24/18 10/24/18 10:40 10:40 10:40 WBC 5.8 RBC 4.03 L Hgb 13.4 Hct 40.0 MCV 99.3 H MCH 33.3 H MCHC 33.5 RDW 14.0 RDW Differential 50.2 H Plt Count 191 MPV 11.3 Immature Gran % (Auto) 0.200 Neut % (Auto) 69.6 Lymph % (Auto) 16.5 L [place] % (Auto) 9.4 Eos % (Auto) 3.6 Baso % (Auto) 0.7 Absolute Neuts (auto) 4.0 Absolute Lymphs (auto) 0.95 Total Counted Not Reportable PT INR Sodium 141 Potassium 4.5 Chloride 108 H Carbon Dioxide 26.0 Anion Gap 7 BUN 21 H Creatinine 1.84 H Estim Creat Clear Calc 18.97 Est GFR (MDRD) Af Amer 34 L Est GFR (MDRD) Non-Af 28 L BUN/Creatinine Ratio 11.4 Glucose 113 H Calcium 9.0 Troponin I < 0.015 B-Natriuretic Peptide 354.9 H Urine Color Urine Clarity Urine pH Ur Specific [place] Urine Protein Urine Glucose (UA) Urine Ketones Urine Occult Blood Urine Nitrite Urine Bilirubin Urine Urobilinogen Ur Leukocyte Esterase Urine RBC Urine WBC Ur Squamous Epith Cells Urine Bacteria Urine Mucus 10/24/18 10/24/18 10:40 11:35 WBC RBC Hgb Hct MCV MCH MCHC RDW RDW Differential Plt Count MPV Immature Gran % (Auto) Neut % (Auto) Lymph % (Auto) [place] % (Auto) Eos % (Auto) Baso % (Auto) Absolute Neuts (auto) Absolute Lymphs (auto) Total Counted PT 20.1 H INR 1.7 Sodium Potassium Chloride Carbon Dioxide Anion Gap BUN Creatinine Estim Creat Clear Calc Est GFR (MDRD) Af Amer Est GFR (MDRD) Non-Af BUN/Creatinine Ratio Glucose Calcium Troponin I B-Natriuretic Peptide Urine Color Yellow Urine Clarity Clear Urine pH 7.0 Ur Specific [place] 1.010 Urine Protein Negative Urine Glucose (UA) Normal Urine Ketones Negative Urine Occult Blood Negative Urine Nitrite Negative Urine Bilirubin Negative Urine Urobilinogen Normal Ur Leukocyte Esterase Negative Urine RBC 0 SEEN Urine WBC 0 SEEN Ur Squamous Epith Cells 0 SEEN Urine Bacteria 0 SEEN Urine Mucus 0 SEEN Clinical Impression(s) from Imaging Studies Brain CT 10/24/18 10:29 IMPRESSION: 1. No acute intracranial hemorrhage or mass effect. Stable exam. 2. Central parenchymal volume loss. White matter changes that are nonspecific but most commonly associated with chronic small vessel ischemic disease. Electronically Signed: Kyle Wright MD at 11:04 EST , Service support , Chest X-Ray 10/24/18 10:45 IMPRESSION: Stable, nonacute portable x-ray examination of the chest. Electronically Signed: Kyle Wright MD at 11:06 EST , Service support , Assessment/Plan All Active Problems (Last Reviewed 10/24/18 @ 12:20 by Jones Buckley DO) Encephalopathy acute (Acute) Aphasia (Acute) Altered mental status (Acute) Subtherapeutic international normalized ratio (INR) (Acute) Acute systolic CHF (congestive heart failure) (Resolved) Atrial fibrillation with RVR (Resolved) History of breast cancer (Resolved) History of right mastectomy (Resolved) Rectal pain (Resolved) 1. Encephalopathy Patient with difficulty speaking,/especially aphasia Patient has similar episode earlier this month drug at that time. Other than the patient's slurred speech and difficulty naming some objects but was able to name the objects on the NIH without difficulty. But my concern is to rule out stroke, which I do not feel that she has but more concerned this may be just a fluctuation in her neurocognitive status related with a yet to be diagnosed neurodegenerative process. Further stroke evaluation: Patient will undergo an MRI of the brain. I do not feel is necessary to repeat an MRA of her head and neck as previously was unremarkable just this month. Will consult neurology. PT OT and speech therapy. Repeat echocardiogram last was done in March which showed an ejection fraction of 25% Patient's symptoms could be like patient's creatinine is up slightly from her baseline so we will give her some IV fluids and hold her diuretics at this time. Patient is on oxycodone as well which is a direct cause but with her what may be dementia or neurodegenerative process that could be exacerbating symptoms 2. Atrial fibrillation: Rate controlled at this time INR subtherapeutic at 1.7. We will continue with the Lovenox until her INR is therapeutic Continue amiodarone 3. Chronic kidney disease stage III Creatinine up slightly from her baseline Will hold her diuretics and give her some IV fluids 4. DVT prophylaxis with Lovenox until INR is therapeutic Advanced care planning: Spent an additional 15 minutes discussing with the patient's about DNR Comfort Care arrest and full code. Recommended that he consider further regards to advanced directives including PEG tube. He wishes the patient to be full code at this time. Code Visit Inpatient E&M: 76360 Init Hosp L3 Procedures: 96744 Advncd Care Plan 30 Min
--- NOTE | 2018-10-24 12:21 | HP.PCM_ITS ---
Problem List (1) Encephalopathy acute Status: Acute History of Present Illness Date of Admission: 10/24/18 Chief Complaint: expressive aphasia. The patient is a 83 year old F who awoke this morning unable to speak. Patient was admitted earlier this month for similar symptoms and was evaluated for stroke which was negative. It is felt that her symptoms were attributable to urinary tract infection. Patient was doing fairly well. Patient at baseline has issues with confusion, such as when getting [place] cards ready patient was doing things such as forgetting to put a card into an envelope or forgetting to address an envelope. Patient has had more confusion as of late. Patient has had a history of falls as well 6 just this year. She now uses a walker which mitigates much falls. Patient's states that she had fallen previously forward and backwards. States that she also has difficulty negotiating up steps were her foot may be not be completely on step of any partly on the step. They have recently followed up with a movement disorder specialist at [facility] and I have undergone some testing there but no definitive diagnosis has been provided at this time just a range of diagnosis, including PSP, MSA and others. Patient's states that she still is confused at this time. 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) Hypertension (Chronic) Central sleep apnea (Chronic) Medical History: Medical History (Last Reviewed 10/24/18 @ 12:20 by Jones Buckley DO) 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) I43 last ECHO with a 25% EF Secondary pulmonary arterial hypertension (Chronic) I27.21 Nonrheumatic aortic valve insufficiency (Chronic) I35.1 Nonrheumatic mitral (valve) insufficiency (Chronic) I34.0 Non-rheumatic tricuspid valve insufficiency (Chronic) I36.1 Paroxysmal atrial fibrillation (Chronic) I48.0 Chronic systolic (congestive) heart failure (Chronic) I50.22 retirement (current) use of anticoagulants (Chronic) Z79.01 Hypertension (Chronic) I10 Central sleep apnea (Chronic) G47.31 Anxiety and depression F41.9, F32.9 Joint pain M25.50 Acute systolic CHF (congestive heart failure) (Resolved) I50.21 Atrial fibrillation with RVR (Resolved) I48.91 Breast cancer C50.919 History of breast cancer (Resolved) Z85.3 Rectal pain (Resolved) K62.89 Joint pain (Inactive) M25.50 Allergies Penicillins [PCN] Allergy (Verified 10/24/18 10:12) Rash Home Medications: Ambulatory Orders Medication Instructions Recorded Calcium Citrate/Vitamin D3 315 ea PO TIDCM 01/05/17 [Calcium Citrate - Vit D Caplet] Carvedilol [Coreg (Beta Kori)] 6.25 mg PO BID 01/05/17 Celecoxib [Celebrex] 200 mg PO DAILY 01/05/17 Cholecalciferol (Vitamin D3) 2,000 unit PO DAILY 01/05/17 [Vitamin D3] Paroxetine Mesylate [Brisdelle] 7.5 mg PO DAILY 01/05/17 psyllium husk (with sugar) 3.4 2 tsp PO DAILY g 03/05/18 gram/12 gram oral powder warfarin 2.5 mg tablet 1.25 mg PO DAILY 03/31/18 oxycodone 5 mg tablet 5 mg PO BID tab 07/23/18 furosemide 40 mg tablet 40 mg PO SUTUTHSA #60 tab 09/27/18 Amiodarone HCl [Cordarone] 200 mg PO DAILY 10/06/18 Aspirin E.C. 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 These refer to the [facility] for further details. VTE Information - Inpt Only VTE Present on Admission: No VTE Mechan Device Prophylaxis: None VTE Pharm Prophylaxis ordered?: Yes - Physical Exam General: Alert, Confused HEENT: Atraumatic, PERRLA, EOMI, Normocephalic Oral: Moist Mucosa, No Gingival or Mucosal Lesions/ Ulcerations Neck: No Nodes, Thyroid Normal Size and Texture Lungs: Clear to auscultation, Normal air movement, No rhonchi, No wheeze Cardiovascular: Regular rate, Regular Rhythm, Normal S1, Normal S2, No murmurs Abdomen: Bowel Sounds Present, Soft, Non Tender, Non-Distended, No Hepato- splenomegaly Extremities: No edema, No Calf Tenderness Skin: No rashes, No breakdown Musculoskeletal: No Tenderness to Palpation of Joints or Extremities, No Muscle Wasting Neurological: Cranial nerves II-XII grossly intact, Deep Tendon Reflexes 2+/4 and Symmetrical, Neuro grossly intact, Motor Exam 5/5 strength throughout, - - NIH of 4: Patient had some slurred speech and had difficulty naming some objects presented to her. Psych/Mental Status: Normal Affect, Appropriate Vital Signs Temp Pulse Resp BP Pulse Ox 36.4 C L 55 L 16 115/71 100 10/24/18 10:05 10/24/18 10:05 10/24/18 10:05 10/24/18 10:05 10/24/18 10:23 Oxygen Flow Rate (L/min) 2 Oxygen Delivery Method Nasal Cannula Weight: 62.064 kg Body Mass Index (BMI) 25.0 Laboratory Tests Past 24 Hrs 10/24/18 10/24/18 10/24/18 10:40 10:40 10:40 WBC 5.8 RBC 4.03 L Hgb 13.4 Hct 40.0 MCV 99.3 H MCH 33.3 H MCHC 33.5 RDW 14.0 RDW Differential 50.2 H Plt Count 191 MPV 11.3 Immature Gran % (Auto) 0.200 Neut % (Auto) 69.6 Lymph % (Auto) 16.5 L [place] % (Auto) 9.4 Eos % (Auto) 3.6 Baso % (Auto) 0.7 Absolute Neuts (auto) 4.0 Absolute Lymphs (auto) 0.95 Total Counted Not Reportable PT INR Sodium 141 Potassium 4.5 Chloride 108 H Carbon Dioxide 26.0 Anion Gap 7 BUN 21 H Creatinine 1.84 H Estim Creat Clear Calc 18.97 Est GFR (MDRD) Af Amer 34 L Est GFR (MDRD) Non-Af 28 L BUN/Creatinine Ratio 11.4 Glucose 113 H Calcium 9.0 Troponin I < 0.015 B-Natriuretic Peptide 354.9 H Urine Color Urine Clarity Urine pH Ur Specific [place] Urine Protein Urine Glucose (UA) Urine Ketones Urine Occult Blood Urine Nitrite Urine Bilirubin Urine Urobilinogen Ur Leukocyte Esterase Urine RBC Urine WBC Ur Squamous Epith Cells Urine Bacteria Urine Mucus 10/24/18 10/24/18 10:40 11:35 WBC RBC Hgb Hct MCV MCH MCHC RDW RDW Differential Plt Count MPV Immature Gran % (Auto) Neut % (Auto) Lymph % (Auto) [place] % (Auto) Eos % (Auto) Baso % (Auto) Absolute Neuts (auto) Absolute Lymphs (auto) Total Counted PT 20.1 H INR 1.7 Sodium Potassium Chloride Carbon Dioxide Anion Gap BUN Creatinine Estim Creat Clear Calc Est GFR (MDRD) Af Amer Est GFR (MDRD) Non-Af BUN/Creatinine Ratio Glucose Calcium Troponin I B-Natriuretic Peptide Urine Color Yellow Urine Clarity Clear Urine pH 7.0 Ur Specific [place] 1.010 Urine Protein Negative Urine Glucose (UA) Normal Urine Ketones Negative Urine Occult Blood Negative Urine Nitrite Negative Urine Bilirubin Negative Urine Urobilinogen Normal Ur Leukocyte Esterase Negative Urine RBC 0 SEEN Urine WBC 0 SEEN Ur Squamous Epith Cells 0 SEEN Urine Bacteria 0 SEEN Urine Mucus 0 SEEN Clinical Impression(s) from Imaging Studies Brain CT 10/24/18 10:29 IMPRESSION: 1. No acute intracranial hemorrhage or mass effect. Stable exam. 2. Central parenchymal volume loss. White matter changes that are nonspecific but most commonly associated with chronic small vessel ischemic disease. Electronically Signed: Kyle Wright MD at 11:04 EST , Service support , Chest X-Ray 10/24/18 10:45 IMPRESSION: Stable, nonacute portable x-ray examination of the chest. Electronically Signed: Kyle Wright MD at 11:06 EST , Service support , Assessment/Plan All Active Problems (Last Reviewed 10/24/18 @ 12:20 by Jones Buckley DO) Encephalopathy acute (Acute) Aphasia (Acute) Altered mental status (Acute) Subtherapeutic international normalized ratio (INR) (Acute) Acute systolic CHF (congestive heart failure) (Resolved) Atrial fibrillation with RVR (Resolved) History of breast cancer (Resolved) History of right mastectomy (Resolved) Rectal pain (Resolved) 1. Encephalopathy * Patient with difficulty speaking,/especially aphasia * Patient has similar episode earlier this month drug at that time. Other than the patient's slurred speech and difficulty naming some objects but was able to name the objects on the NIH without difficulty. But my concern is to rule out stroke, which I do not feel that she has but more concerned this may be just a fluctuation in her neurocognitive status related with a yet to be diagnosed neurodegenerative process. * Further stroke evaluation: Patient will undergo an MRI of the brain. I do not feel is necessary to repeat an MRA of her head and neck as previously was unremarkable just this month. Will consult neurology. PT OT and speech therapy. Repeat echocardiogram last was done in March which showed an ejection fraction of 25% * Patient's symptoms could be like patient's creatinine is up slightly from her baseline so we will give her some IV fluids and hold her diuretics at this time. * Patient is on oxycodone as well which is a direct cause but with her what may be dementia or neurodegenerative process that could be exacerbating symptoms 2. Atrial fibrillation: Rate controlled at this time * INR subtherapeutic at 1.7. We will continue with the Lovenox until her INR is therapeutic * Continue amiodarone 3. Chronic kidney disease stage III * Creatinine up slightly from her baseline * Will hold her diuretics and give her some IV fluids 4. DVT prophylaxis with Lovenox until INR is therapeutic Advanced care planning: Spent an additional 15 minutes discussing with the patient's about DNR Comfort Care arrest and full code. Recommended that he consider further regards to advanced directives including PEG tube. He wishes the patient to be full code at this time. Code Visit Inpatient E&M: 73292 Init Hosp L3 Procedures: 17069 Advncd Care Plan 30 Min
[2018-10-24] MEDS: 0.9% NaCl Peripheral Flush Adult/Peds IV (15:54)
[2018-10-24] MEDS: 0.9% Normal Saline 1,000 ML 100 ML IV (15:54)
[2018-10-24] MEDS: Calcium Carb/Vitamin D 1 TABLET Tablet PO (17:12)
[2018-10-25] VITALS (13 sets, daily range): BP systolic 116–162; BP diastolic 57–98; PULSE 52–66; RESP 16–20; TEMP 36.2–37; O2SAT 93–98; BMI 25.4
[2018-10-25 06:06] LABS: International Normalized Ratio 1.8; Prothrombin Time (Protime)PT. 21.2 SECONDS (11.7-14.9)
[2018-10-25 06:27] LABS: Anion Gap 10 (5-15); BUN 17 mg/dL (7-18); BUN/Creat Ratio 11.3 RATIO (10-20); Calcium,Total 8.3 mg/dL (8.5-10.1); Chloride 111 mmol/L (98-107); Cholesterol 188 mg/dL (200); EST Glomerular Filtration Rate 35 mL/min (>60); Est Glom Filt Rate - Afr Amer 43 mL/min (>60); Estimated Creatinine Clearance 23.26 ml/min; Glucose 105 mg/dL (74-106); High Density Lipoprotein 78 mg/dL; Potassium 3.9 mmol/L (3.5-5.1); Sodium Level 143 mmol/L (136-145); Triglycerides 96 mg/dL; Very Low Density Lipoprotein 19 mg/dL (5-40)
--- NOTE | 2018-10-25 08:00 | MRI_ITS ---
STUDY: MRI BRAIN WITHOUT CONTRAST REASON FOR EXAM: Female, 83 years old. expressive aphasia, increased confusion. TECHNIQUE: Standardized multiplanar fat and water weighted pulse sequences were obtained. COMPARISON: 10/24/2018 FINDINGS: There is mild cerebral atrophy with widening of the extra-axial spaces and ventricular dilatation. There are multiple white matter hyperintensities, distributed throughout the deep white matter tracts of the cerebral hemispheres, consistent with moderate chronic white matter ischemic changes. Normal bilateral basal ganglia. Normal thalami. There is no extra-axial fluid accumulation. Normal flow voids within the major intracranial circulation suggesting patency by spin echo criteria. Normal sella turcica, pituitary gland, infundibular stalk, optic chiasm and hypothalamus. Normal tectal plate and pineal gland. There are chronic white matter ischemic changes of the daren. The midbrain and medulla are otherwise normal. Normal cerebellum. Normal basal cisterns. Normal bilateral temporal bones. Normal bilateral internal auditory canals. MRI/Brain without Contrast IMPRESSION: No acute intracranial abnormality. Moderate chronic microvascular ischemic changes. Electronically Signed: Patti Olivia MD at 8:48 EST Tel , Service support ,
[2018-10-25] MEDS: Amiodarone 200 MG Tablet PO (09:12)
[2018-10-25] MEDS: Aspirin E.C. 81 MG Tablet PO (09:12)
[2018-10-25] MEDS: Calcium Carb/Vitamin D 1 TABLET Tablet PO ×3 (09:12→16:38)
[2018-10-25] MEDS: Enoxaparin 30 MG/0.3 ML Syringe SC (09:12)
--- NOTE | 2018-10-25 11:58 | PCM.CONS.GEN ---
Problem List (1) Confusion Status: Acute (2) Speech disturbance Status: Acute Qualifiers: Speech disturbance type: fluency disorder associated with underlying disease Qualified Code(s): R47.82 - Fluency disorder in conditions classified elsewhere Reason for Consult Date of Consultation: 10/25/18 Reason for Consultation: confusion, speech disturbances History of Present Illness: The patient is a 83 year old CF with PMH HTN, H/O right Breast cancer s/p mastectomy, Chronic systolic CHF, Afib on Coumadin, ? CKD admitted with confusion episode and speech disturbances. History is obtained from patient, her (Dr. 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 Per patient woke up in the morning yesterday (10/24/18) was confused, later developed speech disturbances where she would begin a sentence like saying I want to.. but then would not be able to complete the sentence and would not be able to tell what she wants. feels this speech issue is still continuing this morning. Patient denies CESAR, dizziness, new onset visual disturbances or focal motor weakness or sensory loss, chronic neck pain and low back pain with radicular symptoms and right thigh pain, occasionally feels her feet are numb. No documented witnessed seizure. denies any witnessed seizures, no tongue bite or urinary incontinence. Per she also has long standing memory issues. Patient was admitted about 2 weeks ago with speech difficulty where she could not get her words out, was found to have UTI with normal MRI brain and MRA head/neck at that time. Is on Coumadin for Afib, INR on admission was 1.8 Per patient may be having long standing history of gait issues and balance issues which began around May 2005, initially he felt she was walking slow, when walked long distances would feel she needs to walk faster and faster, had multiple falls then, had about 6 falls this spring, got physical therapy, has not fallen since May this year (2018), had memory issues and feels she has issues with comprehension, denies any tremors, visual hallucinations or REM behavior sleep d/o. Per she has been tested in the past and has seen multiple Neurologists without any diagnosis. She recently went to [facility] d/o clinic last week where she saw Dr. Wesley who did a lot of testing per , but no records available and is not able to give my any details of the testing done. She uses a walker to ambulate, does not drive since March 2018. Past Medical History Past Medical History (Chronic Problems): Chronic Problems (Last Reviewed 10/24/18 @ 12:20 by Jones Buckley DO) 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) last ECHO with a 25% EF Secondary pulmonary arterial hypertension (Chronic) Nonrheumatic aortic valve insufficiency (Chronic) Nonrheumatic mitral (valve) insufficiency (Chronic) Non-rheumatic tricuspid valve insufficiency (Chronic) Paroxysmal atrial fibrillation (Chronic) Chronic systolic (congestive) heart failure (Chronic) Dyspnea (Chronic) Abnormal CT of the chest (Chronic) detention (current) use of anticoagulants (Chronic) Hypertension (Chronic) Central sleep apnea (Chronic) Medical History: Medical History (Last Reviewed 10/24/18 @ 12:20 by Jones Buckley DO) 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) I43 last ECHO with a 25% EF Secondary pulmonary arterial hypertension (Chronic) I27.21 Nonrheumatic aortic valve insufficiency (Chronic) I35.1 Nonrheumatic mitral (valve) insufficiency (Chronic) I34.0 Non-rheumatic tricuspid valve insufficiency (Chronic) I36.1 Paroxysmal atrial fibrillation (Chronic) I48.0 Chronic systolic (congestive) heart failure (Chronic) I50.22 detention (current) use of anticoagulants (Chronic) Z79.01 Hypertension (Chronic) I10 Central sleep apnea (Chronic) G47.31 Anxiety and depression F41.9, F32.9 Joint pain M25.50 Acute systolic CHF (congestive heart failure) (Resolved) I50.21 Atrial fibrillation with RVR (Resolved) I48.91 Breast cancer C50.919 History of breast cancer (Resolved) Z85.3 Rectal pain (Resolved) K62.89 Joint pain (Inactive) M25.50 Allergies Penicillins [PCN] Allergy (Verified 10/24/18 10:12) Rash Home Medications: Ambulatory Orders Medication Instructions Recorded Calcium Citrate/Vitamin D3 315 ea PO TIDCM 01/05/17 [Calcium Citrate - Vit D Caplet] Carvedilol [Coreg (Beta Kori)] 6.25 mg PO BID 01/05/17 Cholecalciferol (Vitamin D3) 2,000 unit PO DAILY 01/05/17 [Vitamin D3] Paroxetine Mesylate [Brisdelle] 7.5 mg PO QHS 01/05/17 psyllium husk (with sugar) 3.4 2 tsp PO DAILY g 03/05/18 gram/12 gram oral powder warfarin 2.5 mg tablet 1.25 mg PO DAILY 03/31/18 Amiodarone HCl [Cordarone] 200 mg PO DAILY 10/06/18 Aspirin E.C. 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 history Lives: Spouse/ Significant Other Smoking Status: Unknown if ever smoked Tobacco Use: Non-smoker Alcohol: None Drugs: None - *Family History Maternal Family History: Family History (Last Reviewed 10/24/18 @ 12:20 by Jones Buckley DO) Grandmother Diabetes Review of Systems Constitutional: Reports: - - complete ROS negative except as documented in HPI - Physical Exam General: Alert HEENT: Normocephalic Neck: Supple Lungs: Normal air movement Cardiovascular: Normal S1, Normal S2 Abdomen: Bowel Sounds Present Extremities: No cyanosis Neurological: - - consious, awake, CN 2-12 grossly intact, comprehension is infact, intermittent fluency issues, reptition intact, naming intact, power 5/5 all 4 extremities, no sensory loss, no cerebellar ataxia at present, Reflexes +2 brisk B/L B/S/T/K + A, gait deferred (but per is wide based when ambulating with walker), no NR, no termors, tone normal both UE. Possible ??Transcortical motor aphasia Psych/Mental Status: Normal Affect Vital Signs Temp Pulse Resp BP Pulse Ox 98.3 F 52 L 16 116/66 95 10/25/18 11:25 10/25/18 11:25 10/25/18 11:25 10/25/18 11:25 10/25/18 11:25 Oxygen Flow Rate (L/min) 2 Oxygen Delivery Method Room Air Weight: 63.1 kg Body Mass Index (BMI) 25.4 Intake and Output for Last 24 Hours 10/23/18 10/24/18 10/25/18 23:59 23:59 23:59 Intake Total 982.5 / 982.5 91.7 / 91.7 Output Total 50 / 50 50 / 50 Balance 932.5 / 932.5 41.7 / 41.7 Laboratory Tests Past 24 Hrs 10/25/18 10/25/18 05:30 05:30 PT 21.2 H INR 1.8 Sodium 143 Potassium 3.9 Chloride 111 H Carbon Dioxide 22.0 Anion Gap 10 BUN 17 Creatinine 1.50 H Estim Creat Clear Calc 23.26 Est GFR (MDRD) Af Amer 43 L Est GFR (MDRD) Non-Af 35 L BUN/Creatinine Ratio 11.3 Glucose 105 Calcium 8.3 L Triglycerides 96 Cholesterol 188 LDL Cholesterol 91 VLDL Cholesterol 19 HDL Cholesterol 78 Assessment/Plan All Active Problems (Last Reviewed 10/24/18 @ 12:20 by Jones Buckley DO) KALEN (acute kidney injury) (Acute) Encephalopathy acute (Acute) Confusion (Acute) Speech disturbance (Acute) Aphasia (Acute) Altered mental status (Acute) Subtherapeutic international normalized ratio (INR) (Acute) Acute systolic CHF (congestive heart failure) (Resolved) Atrial fibrillation with RVR (Resolved) History of breast cancer (Resolved) History of right mastectomy (Resolved) Rectal pain (Resolved) The patient is a 83 year old CF with PMH HTN, H/O right Breast cancer s/p mastectomy, Chronic systolic CHF, Afib on Coumadin, ? CKD admitted with confusion episode and speech disturbances. History is obtained from patient, her (Dr. 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 Per patient woke up in the morning yesterday (10/24/18) was confused, later developed speech disturbances where she would begin a sentence like saying I want to.. but then would not be able to complete the sentence and would not be able to tell what she wants. feels this speech issue is still continuing this morning. Patient denies CESAR, dizziness, new onset visual disturbances or focal motor weakness or sensory loss, chronic neck pain and low back pain with radicular symptoms and right thigh pain, occasionally feels her feet are numb. No documented witnessed seizure. denies any witnessed seizures, no tongue bite or urinary incontinence. Per she also has long standing memory issues. Patient was admitted about 2 weeks ago on 10/07/18 with speech difficulty where she could not get her words out, was found to have UTI with normal MRI brain and MRA head/neck at that time. Is on Coumadin for Afib, INR on admission was 1.7. Repeat MRI brain done on this admission reported nothing acute Per patient may be having long standing history of gait issues and balance issues which began around May 2005, initially he felt she was walking slow, when walked long distances would feel she needs to walk faster and faster, had multiple falls then, had about 6 falls this spring, got physical therapy, has not fallen since May this year (2018), had memory issues and feels she has issues with comprehension, denies any tremors, visual hallucinations or REM behavior sleep d/o. Per she has been tested in the past and has seen multiple Neurologists without any diagnosis. She recently went to [facility] d/o clinic last week where she saw Dr. Wesley who did a lot of testing per , but no records available and is not able to give my any details of the testing done. She uses a walker to ambulate, does not drive since March 2018. Impression Confusion, speech disturbances ? Dementia- R/O Neurodegenerative causes Cervical/Lumbar stenosis R/O Neuropathy Plan -On Coumadin, INR subtherapeutic, discussed about changing to NOACs like Eliquis, but not interested at present. Follows up with Dr. Bullard and will defer to hospitalist and Cardiology -Statins if no contraindication -ASA 81 mg PO once daily, bridge with Coumadin till INR becomes therapeutic -Check EEG -Repeat MRI brain this admission (10/25/18)- nothing acute. -MRI brain w/o contrast, MRA head/neck (10/07/18)- nothing acute -MRI C spine (10/07/18) -reported Advanced spondylosis and multilevel spinal stenosis due to disc and bony hypertrophy -MRI L spine w/o contrast (10/07/18)- reported Moderately severe multilevel degenerative disc disease and degenerative arthropathy of the lumbar spine with acquired canal stenosis, and neural foraminal narrowing -Recommend spine surgery consult -Labs reviewed -Check SANDRA/ANCA/RF/SSa/SSb AB/SPEP with ROCHELLE and UPEP with ROCHELLE and paraneoplastic panel if not checked at [facility]. -Per Vitamin B12 normal at F, but methylmalonic acid was high, awaiting homocysteine (no records available with me to verify at present). -Check EMG/NCS both LE as outpatient -May need further evaluation for dementia as outpatient in form of neurocognitive evaluation. Per she has been seen by a movement d/o specialist Dr. Wesley from [facility] last week, no records available, obtain records from [facility] if possible. Per she has ordered lot of tests, details not available with -PT/OT/ST -Fall precautions -Further medical management per hospitalist team -Follow up with Neurology as outpatient in 4-6 weeks for further evaluation. -Please call with questions if any -Thank you for allowing us to participate in patient's care and management . Code Visit Inpatient E&M: [id number] Init Hosp L3
--- NOTE | 2018-10-25 12:06 | CON.PCM_ITS ---
Problem List (1) Confusion Status: Acute (2) Speech disturbance Status: Acute Qualifiers: Speech disturbance type: fluency disorder associated with underlying disease Qualified Code(s): R47.82 - Fluency disorder in conditions classified elsewhere Reason for Consult Date of Consultation: 10/25/18 Reason for Consultation: confusion, speech disturbances History of Present Illness: The patient is a 83 year old CF with PMH HTN, H/O right Breast cancer s/p mastectomy, Chronic systolic CHF, Afib on Coumadin, ? CKD admitted with c onfusion episode and speech disturbances. History is obtained from patient, her (Dr. 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 Per patient woke up in the morning yesterday (10/24/18) was confused, later developed speech disturbances where she would begin a sentence like saying I want to.. but then would not be able to complete the sentence and would not be able to tell what she wants. feels this speech issue is still continuing this morning. Patient denies CESAR, dizziness, new onset visual disturbances or focal motor weakness or sensory loss, chronic neck pain and low back pain with radicular symptoms and right thigh pain, occasionally feels her feet are numb. No documented witnessed seizure. denies any witnessed seizures, no tongue bite or urinary incontinence. Per she also has long standing memory issues. Patient was admitted about 2 weeks ago with speech difficulty where she could not get her words out, was found to have UTI with normal MRI brain and MRA head/neck at that time. Is on Coumadin for Afib, INR on admission was 1.8 Per patient may be having long standing history of gait issues and balance issues which began around May 2005, initially he felt she was walking slow, when walked long distances would feel she needs to walk faster and faster, had multiple falls then, had about 6 falls this spring, got physical therapy, has not fallen since May this year (2018), had memory issues and feels she has issues with comprehension, denies any tremors, visual hallucinations or REM behavior sleep d/o. Per she has been tested in the past and has seen multiple Neurologists without any diagnosis. She recently went to [facility] d/o clinic last week where she saw Dr. Wesley who did a lot of testing per , but no records available and is not able to give my any details of the testing done. She uses a walker to ambulate, does not drive since March 2018. 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) Hypertension (Chronic) Central sleep apnea (Chronic) Medical History: Medical History (Last Reviewed 10/24/18 @ 12:20 by Jones Buckley DO) 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) I43 last ECHO with a 25% EF Secondary pulmonary arterial hypertension (Chronic) I27.21 Nonrheumatic aortic valve insufficiency (Chronic) I35.1 Nonrheumatic mitral (valve) insufficiency (Chronic) I34.0 Non-rheumatic tricuspid valve insufficiency (Chronic) I36.1 Paroxysmal atrial fibrillation (Chronic) I48.0 Chronic systolic (congestive) heart failure (Chronic) I50.22 [facility] (current) use of anticoagulants (Chronic) Z79.01 Hypertension (Chronic) I10 Central sleep apnea (Chronic) G47.31 Anxiety and depression F41.9, F32.9 Joint pain M25.50 Acute systolic CHF (congestive heart failure) (Resolved) I50.21 Atrial fibrillation with RVR (Resolved) I48.91 Breast cancer C50.919 History of breast cancer (Resolved) Z85.3 Rectal pain (Resolved) K62.89 Joint pain (Inactive) M25.50 Allergies Penicillins [PCN] Allergy (Verified 10/24/18 10:12) Rash Home Medications: Ambulatory Orders Medication Instructions Recorded Calcium Citrate/Vitamin D3 315 ea PO TIDCM 01/05/17 [Calcium Citrate - Vit D Caplet] Carvedilol [Coreg (Beta Kori)] 6.25 mg PO BID 01/05/17 Cholecalciferol (Vitamin D3) 2,000 unit PO DAILY 01/05/17 [Vitamin D3] Paroxetine Mesylate [Brisdelle] 7.5 mg PO QHS 01/05/17 psyllium husk (with sugar) 3.4 2 tsp PO DAILY g 03/05/18 gram/12 gram oral powder warfarin 2.5 mg tablet 1.25 mg PO DAILY 03/31/18 Amiodarone HCl [Cordarone] 200 mg PO DAILY 10/06/18 Aspirin E.C. [Ecotrin] 81 mg PO DAILY 10/06/18 Dymista 1 puff NASAL BID PRN PRN 10/06/18 Surgical History: Surgical History (Last Reviewed 10/24/18 @ 12:20 by Jones Buckley DO) H/O right mastectomy Z90.11 History of right mastectomy (Resolved) Z98.890, Z90.11 Surgical History: appendectomy, - - Lumpectomy, tubal ligation, right breast mass biopsy, modified right radical mastectomy, cataract extraction, lens implantation Psychiatric History: No pertinent psych hx ASSURANCE SPECIALIST History: No pertinent ASSURANCE SPECIALIST history Lives: Spouse/ Significant Other Smoking Status: Unknown if ever smoked Tobacco Use: Non-smoker Alcohol: None Drugs: None - *Family History Maternal Family History: Family History (Last Reviewed 10/24/18 @ 12:20 by Jones Buckley DO) Grandmother Diabetes Review of Systems Constitutional: Reports: - - complete ROS negative except as documented in HPI - Physical Exam General: Alert HEENT: Normocephalic Neck: Supple Lungs: Normal air movement Cardiovascular: Normal S1, Normal S2 Abdomen: Bowel Sounds Present Extremities: No cyanosis Neurological: - - consious, awake, CN 2-12 grossly intact, comprehension is infact, intermittent fluency issues, reptition intact, naming intact, power 5/5 all 4 extremities, no sensory loss, no cerebellar ataxia at present, Reflexes +2 brisk B/L B/S/T/K + A, gait deferred (but per is wide based when ambulating with walker), no NR, no termors, tone normal both UE. Possible ??Transcortical motor aphasia Psych/Mental Status: Normal Affect Vital Signs Temp Pulse Resp BP Pulse Ox 98.3 F 52 L 16 116/66 95 10/25/18 11:25 10/25/18 11:25 10/25/18 11:25 10/25/18 11:25 10/25/18 11:25 Oxygen Flow Rate (L/min) 2 Oxygen Delivery Method Room Air Weight: 63.1 kg Body Mass Index (BMI) 25.4 Intake and Output for Last 24 Hours 10/23/18 10/24/18 10/25/18 23:59 23:59 23:59 Intake Total 982.5 / 982.5 91.7 / 91.7 Output Total 50 / 50 50 / 50 Balance 932.5 / 932.5 41.7 / 41.7 Laboratory Tests Past 24 Hrs 10/25/18 10/25/18 05:30 05:30 PT 21.2 H INR 1.8 Sodium 143 Potassium 3.9 Chloride 111 H Carbon Dioxide 22.0 Anion Gap 10 BUN 17 Creatinine 1.50 H Estim Creat Clear Calc 23.26 Est GFR (MDRD) Af Amer 43 L Est GFR (MDRD) Non-Af 35 L BUN/Creatinine Ratio 11.3 Glucose 105 Calcium 8.3 L Triglycerides 96 Cholesterol 188 LDL Cholesterol 91 VLDL Cholesterol 19 HDL Cholesterol 78 Assessment/Plan All Active Problems (Last Reviewed 10/24/18 @ 12:20 by Jones Buckley DO) KALEN (acute kidney injury) (Acute) Encephalopathy acute (Acute) Confusion (Acute) Speech disturbance (Acute) Aphasia (Acute) Altered mental status (Acute) Subtherapeutic international normalized ratio (INR) (Acute) Acute systolic CHF (congestive heart failure) (Resolved) Atrial fibrillation with RVR (Resolved) History of breast cancer (Resolved) History of right mastectomy (Resolved) Rectal pain (Resolved) The patient is a 83 year old CF with PMH HTN, H/O right Breast cancer s/p mastectomy, Chronic systolic CHF, Afib on Coumadin, ? CKD admitted with confusion episode and speech disturbances. History is obtained from patient, her (Dr. 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 Per patient woke up in the morning yesterday (10/24/18) was confused, later developed speech disturbances where she would begin a sentence like saying I want to.. but then would not be able to complete the sentence and would not be able to tell what she wants. feels this speech issue is still continuing this morning. Patient denies CESAR, dizziness, new onset visual disturbances or focal motor weakness or sensory loss, chronic neck pain and low back pain with radicular symptoms and right thigh pain, occasionally feels her feet are numb. No documented witnessed seizure. denies any witnessed seizures, no tongue bite or urinary incontinence. Per she also has long standing memory issues. Patient was admitted about 2 weeks ago on 10/07/18 with speech difficulty where she could not get her words out, was found to have UTI with normal MRI brain and MRA head/neck at that time. Is on Coumadin for Afib, INR on admission was 1.7. Repeat MRI brain done on this admission reported noth ing acute Per patient may be having long standing history of gait issues and balance issues which began around May 2005, initially he felt she was walking slow, when walked long distances would feel she needs to walk faster and faster, had multiple falls then, had about 6 falls this spring, got physical therapy, has not fallen since May this year (2018), had memory issues and feels she has issues with comprehension, denies any tremors, visual hallucinations or REM behavior sleep d/o. Per she has been tested in the past and has seen multiple Neurologists without any diagnosis. She recently went to [facility] d/o clinic last week where she saw Dr. Wesley who did a lot of testing per , but no records available and is not able to give my any details of the testing done. She uses a walker to ambulate, does not drive since March 2018. Impression Confusion, speech disturbances ? Dementia- R/O Neurodegenerative causes Cervical/Lumbar stenosis R/O Neuropathy Plan -On Coumadin, INR subtherapeutic, discussed about changing to NOACs like Eliquis, but not interested at present. Follows up with Dr. Bullard and will defer to hospitalist and Cardiology -Statins if no contraindication -ASA 81 mg PO once daily, bridge with Coumadin till INR becomes therapeutic -Check EEG -Repeat MRI brain this admission (10/25/18)- nothing acute. -MRI brain w/o contrast, MRA head/neck (10/07/18)- nothing acute -MRI C spine (10/07/18) -reported Advanced spondylosis and multilevel spinal stenosis due to disc and bony hypertrophy -MRI L spine w/o contrast (10/07/18)- reported Moderately severe multilevel degenerative disc disease and degenerative arthropathy of the lumbar spine with acquired canal stenosis, and neural foraminal narrowing -Recommend spine surgery consult -Labs reviewed -Check SANDRA/ANCA/RF/SSa/SSb AB/SPEP with ROCHELLE and UPEP with ROCHELLE and paraneoplastic panel if not checked at [facility]. -Per Vitamin B12 normal at [facility], but methylmalonic acid was high, awaiting homocysteine (no records available with me to verify at present). -Check EMG/NCS both LE as outpatient -May need further evaluation for dementia as outpatient in form of neurocognitive evaluation. Per she has been seen by a movement d/o specialist Dr. Wesley from [facility] last week, no records available, obtain records from [facility] if possible. Per she has ordered lot of tests, details not available with -PT/OT/ST -Fall precautions -Further medical management per hospitalist team -Follow up with Neurology as outpatient in 4-6 weeks for further evaluation. -Please call with questions if any -Thank you for allowing us to participate in patient's care and management . Code Visit Inpatient E&M: [id number] Init Hosp L3
--- NOTE | 2018-10-25 13:26 | CASEMGMT ---
There was discussion that patient will need placement at d/c. Therapy has not been able to see patient yet as she has been getting testing done. SW will also need to talk with patient's regarding his d/c wishes. SW to follow up on Thursday. Jimena HAIRSTON MSW
--- NOTE | 2018-10-25 13:28 | PCM.PN.HOSP ---
Patient Problems: Active and Suspected Problems (Last Reviewed 10/24/18 @ 12:20 by Jones Buckley DO) Confusion (Acute) Speech disturbance (Acute) Subjective: still with expressive aphasia Vitals/I&O's: Vital Signs Temp Pulse Resp BP Pulse Ox 36.8 C 52 L 16 116/66 95 10/25/18 11:25 10/25/18 11:25 10/25/18 11:25 10/25/18 11:25 10/25/18 11:25 Oxygen Flow Rate (L/min) 2 Oxygen Delivery Method Room Air Weight: 63.1 kg Body Mass Index (BMI) 25.4 Intake and Output for Last 24 Hours 10/23/18 10/24/18 10/25/18 23:59 23:59 23:59 Intake Total 982.5 / 982.5 331.7 / 331.7 Output Total 50 / 50 250 / 250 Balance 932.5 / 932.5 81.7 / 81.7 General: Cooperative, No apparent distress HEENT: Atraumatic, Normocephalic Oral: Moist Mucosa, No Gingival or Mucosal Lesions/ Ulcerations Neck: No Nodes, Thyroid Normal Size and Texture Lungs: Clear to auscultation, Normal air movement, No rhonchi, No wheeze Cardiovascular: Regular rate, Regular Rhythm, Normal S1, Normal S2, No murmurs Abdomen: Bowel Sounds Present, Soft, Non Tender, Non-Distended, No Hepato-splenomegaly Extremities: No edema, No Calf Tenderness Skin: No rashes, No breakdown Neurological: Cranial nerves II-XII grossly intact, Coordination normal, - - A+O x1 Psych/Mental Status: Normal Affect Laboratory Results 10/25/18 05:30: PT 21.2 H, INR 1.8 10/25/18 05:30: Sodium 143, Potassium 3.9, Chloride 111 H, Carbon Dioxide 22.0, Anion Gap 10, BUN 17, Creatinine 1.50 H, Estim Creat Clear Calc 23.26, Est GFR (MDRD) Af Amer 43 L, Est GFR (MDRD) Non-Af 35 L, BUN/Creatinine Ratio 11.3, Glucose 105, Calcium 8.3 L, Triglycerides 96, Cholesterol 188, LDL Cholesterol 91, VLDL Cholesterol 19, HDL Cholesterol 78 Current Medications Amiodarone HCl (Cordarone) 200 mg PO DAILY YARY Last Admin: 10/25/18 09:12 Dose: 200 mg Aspirin (Ecotrin) 81 mg PO DAILY@0800 [facility] Last Admin: 10/25/18 09:12 Dose: 81 mg Calcium/Vitamin D (Os-Raymond 500mg + D) 1 tablet PO TIDCM [facility] Last Admin: 10/25/18 12:31 Dose: 1 tablet Cholecalciferol (Vitamin D) 2,000 unit PO DAILY [facility] Last Admin: 10/25/18 09:12 Dose: 2,000 unit Enoxaparin Sodium (Lovenox) 30 mg SC DAILY [facility] Last Admin: 10/25/18 09:12 Dose: 30 mg Magnesium Hydroxide (Milk Of Magnesia) 30 ml PO DAILY PRN PRN Reason: Constipation Ondansetron HCl (Zofran) 4 mg IV Q8H PRN PRN PRN Reason: NAUSEA Oxycodone HCl (Oxyir) 5 mg PO BID PRN PRN PRN Reason: SEVERE PAIN (6-10/10) Sodium Chloride () 5 - 15 ml IV UD PRN PRN Reason: SALINE FLUSH Last Admin: 10/24/18 15:54 Dose: 10 ml Warfarin Sodium (Coumadin (Pbkc)) 1.25 mg PO DAILY@1700 [facility]; Protocol Last Admin: 10/24/18 17:13 Dose: 1.25 mg Medical Necessity - Tobacco Use Smoking Status: Unknown if ever smoked Tobacco Use: Non-smoker Assessment/Plan All Active Problems (Last Reviewed 10/24/18 @ 12:20 by Jones Buckley DO) Encephalopathy acute (Acute) Confusion (Acute) Speech disturbance (Acute) Aphasia (Acute) Altered mental status (Acute) Subtherapeutic international normalized ratio (INR) (Acute) Acute systolic CHF (congestive heart failure) (Resolved) Atrial fibrillation with RVR (Resolved) History of breast cancer (Resolved) History of right mastectomy (Resolved) Rectal pain (Resolved) 1. Encephalopathy Patient with difficulty speaking,/especially aphasia. Symptoms unchanged Patient has similar episode earlier this month drug at that time. Other than the patient's slurred speech and difficulty naming some objects but was able to name the objects on the NIH without difficulty. But my concern is to rule out stroke, which I do not feel that she has but more concerned this may be just a fluctuation in her neurocognitive status related with a yet to be diagnosed neurodegenerative process. Further stroke evaluation: Patient will undergo an MRI of the brain. I do not feel is necessary to repeat an MRA of her head and neck as previously was unremarkable just this month. Will consult neurology. PT OT and speech therapy. Repeat echocardiogram last was done in March which showed an ejection fraction of 25% Patient's symptoms could be like patient's creatinine is up slightly from her baseline so we will give her some IV fluids and hold her diuretics at this time. DC oxycodone EEG currently being done, per Dr. Peña, it is abnormal, but no overt seizure activity. He would like the patient to be observed for another 24-48 hours to see how she improves. She may need an MRI. 2. Atrial fibrillation: Rate controlled at this time INR subtherapeutic at 1.8. We will continue with the Lovenox until her INR is therapeutic Continue amiodarone 3. Chronic kidney disease stage III Creatinine up slightly from her baseline Will hold her diuretics and give her some IV fluids 4. DVT prophylaxis with Lovenox until INR is therapeutic 5. Debility: plan for Rehab when medically stable. DW patient's . Code Visit Inpatient E&M: 39834 [facility] Hosp L3
--- NOTE | 2018-10-25 13:37 | PN_ITS ---
Patient Problems: Active and Suspected Problems (Last Reviewed 10/24/18 @ 12:20 by Jones Buckley DO) Confusion (Acute) Speech disturbance (Acute) Subjective: still with expressive aphasia Vitals/I&O's: Vital Signs Temp Pulse Resp BP Pulse Ox 36.8 C 52 L 16 116/66 95 10/25/18 11:25 10/25/18 11:25 10/25/18 11:25 10/25/18 11:25 10/25/18 11:25 Oxygen Flow Rate (L/min) 2 Oxygen Delivery Method Room Air Weight: 63.1 kg Body Mass Index (BMI) 25.4 Intake and Output for Last 24 Hours 10/23/18 10/24/18 10/25/18 23:59 23:59 23:59 Intake Total 982.5 / 982.5 331.7 / 331.7 Output Total 50 / 50 250 / 250 Balance 932.5 / 932.5 81.7 / 81.7 General: Cooperative, No apparent distress HEENT: Atraumatic, Normocephalic Oral: Moist Mucosa, No Gingival or Mucosal Lesions/ Ulcerations Neck: No Nodes, Thyroid Normal Size and Texture Lungs: Clear to auscultation, Normal air movement, No rhonchi, No wheeze Cardiovascular: Regular rate, Regular Rhythm, Normal S1, Normal S2, No murmurs Abdomen: Bowel Sounds Present, Soft, Non Tender, Non-Distended, No Hepato- splenomegaly Extremities: No edema, No Calf Tenderness Skin: No rashes, No breakdown Neurological: Cranial nerves II-XII grossly intact, Coordination normal, - - A+O x1 Psych/Mental Status: Normal Affect Laboratory Results 10/25/18 05:30: PT 21.2 H, INR 1.8 10/25/18 05:30: Sodium 143, Potassium 3.9, Chloride 111 H, Carbon Dioxide 22.0, Anion Gap 10, BUN 17, Creatinine 1.50 H, Estim Creat Clear Calc 23.26, Est GFR (MDRD) Af Amer 43 L, Est GFR (MDRD) Non-Af 35 L, BUN/Creatinine Ratio 11.3, Glucose 105, Calcium 8.3 L, Triglycerides 96, Cholesterol 188, LDL Cholesterol 91, VLDL Cholesterol 19, HDL Cholesterol 78 Current Medications Amiodarone HCl (Cordarone) 200 mg PO DAILY YARY Last Admin: 10/25/18 09:12 Dose: 200 mg Aspirin (Ecotrin) 81 mg PO DAILY@0800 [facility] Last Admin: 10/25/18 09:12 Dose: 81 mg Calcium/Vitamin D (Os-Raymond 500mg + D) 1 tablet PO TIDCM [facility] Last Admin: 10/25/18 12:31 Dose: 1 tablet Cholecalciferol (Vitamin D) 2,000 unit PO DAILY [facility] Last Admin: 10/25/18 09:12 Dose: 2,000 unit Enoxaparin Sodium (Lovenox) 30 mg SC DAILY [facility] Last Admin: 10/25/18 09:12 Dose: 30 mg Magnesium Hydroxide (Milk Of Magnesia) 30 ml PO DAILY PRN PRN Reason: Constipation Ondansetron HCl (Zofran) 4 mg IV Q8H PRN PRN PRN Reason: NAUSEA Oxycodone HCl (Oxyir) 5 mg PO BID PRN PRN PRN Reason: SEVERE PAIN (6-10/10) Sodium Chloride () 5 - 15 ml IV UD PRN PRN Reason: SALINE FLUSH Last Admin: 10/24/18 15:54 Dose: 10 ml Warfarin Sodium (Coumadin (Pbkc)) 1.25 mg PO DAILY@1700 [facility]; Protocol Last Admin: 10/24/18 17:13 Dose: 1.25 mg Medical Necessity - Tobacco Use Smoking Status: Unknown if ever smoked Tobacco Use: Non-smoker Assessment/Plan All Active Problems (Last Reviewed 10/24/18 @ 12:20 by Jones Buckley DO) Encephalopathy acute (Acute) Confusion (Acute) Speech disturbance (Acute) Aphasia (Acute) Altered mental status (Acute) Subtherapeutic international normalized ratio (INR) (Acute) Acute systolic CHF (congestive heart failure) (Resolved) Atrial fibrillation with RVR (Resolved) History of breast cancer (Resolved) History of right mastectomy (Resolved) Rectal pain (Resolved) 1. Encephalopathy * Patient with difficulty speaking,/especially aphasia. Symptoms unchanged * Patient has similar episode earlier this month drug at that time. Other than the patient's slurred speech and difficulty naming some objects but was able to name the objects on the [facility] without difficulty. But my concern is to rule out stroke, which I do not feel that she has but more concerned this may be just a fluctuation in her neurocognitive status related with a yet to be diagnosed neurodegenerative process. * Further stroke evaluation: Patient will undergo an MRI of the brain. I do not feel is necessary to repeat an MRA of her head and neck as previously was unremarkable just this month. Will consult neurology. PT OT and speech therapy. Repeat echocardiogram last was done in March which showed an ejection fraction of 25% * Patient's symptoms could be like patient's creatinine is up slightly from her baseline so we will give her some IV fluids and hold her diuretics at this time. * DC oxycodone * EEG currently being done, per Dr. Peña, it is abnormal, but no overt seizure activity. He would like the patient to be observed for another 24-48 hours to see how she improves. She may need an MRI. 2. Atrial fibrillation: Rate controlled at this time * INR subtherapeutic at 1.8. We will continue with the Lovenox until her INR is therapeutic * Continue amiodarone 3. Chronic kidney disease stage III * Creatinine up slightly from her baseline * Will hold her diuretics and give her some IV fluids 4. DVT prophylaxis with Lovenox until INR is therapeutic 5. Debility: plan for Rehab when medically stable. DW patient's . Code Visit Inpatient E&M: 06901 Subs Hosp L3
--- NOTE | 2018-10-25 13:50 | EEG ---
- Electroencephalogram Date of service 10/25/2018 History EEG is being done in this 83 yr F to rule out seizures EEG Description: This is an 18 channel EEG with 10-20 lead placement system. Bipolar montages, Referential and Circumferential montages were reviewed. Photic stimulation and Hyperventilation were performed. The posterior dominant rhythm is 4-5 HZ synchronous, symmetric, reacting to eye opening and closing. Photo stimulation did not elicit normal driving response or abnormal photoparoxysmal response, Hyperventilation did not elicit any abnormal photoparoxysmal response. Sleep was not identified. There is severe abnormal background slowing noted in the delta and theta frequency range. There was no epileptiform discharges or electrographic seizures noted during this recording. EEG Interpretation This is an abnormal EEG due to the presence of severe background slowing. This could be seen with generalized cerebral dysfunction like metabolic/toxic encephalopathy. Clinical correlation advised. There is no epileptiform discharges or electrographic seizures noted during the record.
[2018-10-25] MEDS: MELATONIN 10 MG TABLET 5 MG PO (23:49)
[2018-10-26] VITALS (11 sets, daily range): BP systolic 125–157; BP diastolic 42–63; PULSE 53–66; RESP 14–18; TEMP 36.6–36.8; O2SAT 94–98; BMI 25.4
[2018-10-26 07:05] LABS: Anion Gap 9 (5-15); BUN 14 mg/dL (7-18); BUN/Creat Ratio 10.9 RATIO (10-20); Calcium,Total 8.3 mg/dL (8.5-10.1); Chloride 113 mmol/L (98-107); Creatinine, Serum 1.29 mg/dL (0.55-1.02); EST Glomerular Filtration Rate 42 mL/min (>60); Est Glom Filt Rate - Afr Amer 51 mL/min (>60); Estimated Creatinine Clearance 27.05 ml/min; Glucose 89 mg/dL (74-106); Potassium 4.1 mmol/L (3.5-5.1); Sodium Level 146 mmol/L (136-145)
[2018-10-26 07:08] LABS: International Normalized Ratio 1.8; Prothrombin Time (Protime)PT. 20.6 SECONDS (11.7-14.9)
[2018-10-26] MEDS: Amiodarone 200 MG Tablet PO (10:38)
[2018-10-26] MEDS: Aspirin E.C. 81 MG Tablet PO (10:38)
[2018-10-26] MEDS: Calcium Carb/Vitamin D 1 TABLET Tablet PO ×3 (10:38→17:15)
[2018-10-26] MEDS: Enoxaparin 30 MG/0.3 ML Syringe SC (10:39)
--- NOTE | 2018-10-26 12:01 | PCM.PROGNOTE ---
Patient Problems: Active and Suspected Problems (Last Reviewed 10/24/18 @ 12:20 by Jones Buckley DO) Confusion (Acute) Speech disturbance (Acute) Subjective: Patient is an 83-year-old female admitted to the hospital with confusion and a aphasia. She was admitted to the hospital earlier in October with the same problem. MRI of the brain showed no acute abnormality. There were moderate chronic microvascular ischemic changes. MRA of the brain earlier in the month showed no evidence for hemodynamically significant stenosis or occlusive thrombus. The MRA of the neck had a lot of artifact but did not show any major stenosis. EEG showed severe background slowing. There were no epileptiform discharges. Working diagnosis is currently encephalopathy of unknown origin. INR is subtherapeutic at 1.8. Sodium is increased at 146 with a chloride of 113. BUN is 14 with a creatinine of 1.29, down from 1.84 at admission. He states he is not at baseline yet but he is less SOB and the cough is improving. Denies any sore mouth or lesions in the mouth - Physical Exam General: Alert, - - oriented to place and month......able to name several objects acccurately. HEENT: Atraumatic, PERRLA, EOMI Oral: Dry Mucosa Neck: Supple, No Nuchal Rigidity, Trachea Midline Lungs: Clear to auscultation, Normal air movement Cardiovascular: Regular rate, Regular Rhythm, Normal S1, Normal S2, No Gallop Abdomen: Bowel Sounds Present, Soft, Non Tender, Non-Distended Extremities: No edema Skin: No rashes Neurological: Cranial nerves II-XII grossly intact, Neuro grossly intact Psych/Mental Status: Appropriate Vital Signs Temp Pulse Resp BP Pulse Ox 98.2 F 66 15 126/42 H 94 10/26/18 11:20 10/26/18 11:43 10/26/18 11:20 10/26/18 11:20 10/26/18 11:20 Oxygen Flow Rate (L/min) 2 Oxygen Delivery Method Room Air Weight: 139 lb 1.787 oz Body Mass Index (BMI) 25.4 Intake and Output for Last 24 Hours 10/24/18 10/25/18 10/26/18 23:59 23:59 23:59 Intake Total 982.5 / 982.5 931.7 / 931.7 240 / 240 Output Total 50 / 50 250 / 250 200 / 200 Balance 932.5 / 932.5 681.7 / 681.7 40 / 40 Laboratory Tests Past 24 Hrs 10/26/18 10/26/18 05:46 05:46 PT 20.6 H INR 1.8 Sodium 146 H Potassium 4.1 Chloride 113 H Carbon Dioxide 24.0 Anion Gap 9 BUN 14 Creatinine 1.29 H Estim Creat Clear Calc 27.05 Est GFR (MDRD) Af Amer 51 L Est GFR (MDRD) Non-Af 42 L BUN/Creatinine Ratio 10.9 Glucose 89 Calcium 8.3 L Medical Necessity - Tobacco Use Smoking Status: Never smoker Tobacco Use: Non-smoker Assessment/Plan All Active Problems (Last Reviewed 10/24/18 @ 12:20 by Jones Buckley DO) Encephalopathy acute (Acute) Confusion (Acute) Speech disturbance (Acute) Aphasia (Acute) Altered mental status (Acute) Subtherapeutic international normalized ratio (INR) (Acute) Acute systolic CHF (congestive heart failure) (Resolved) Atrial fibrillation with RVR (Resolved) History of breast cancer (Resolved) History of right mastectomy (Resolved) Rectal pain (Resolved) 1. aphasia and confusion at admission - MRI negative and the EEG with severe slowing but no epileptiform activity. Working dx is encephalopathy.....probably metabolic. MRA of the head with no significant stenosis. MRA of the neck was not a very good study. Dehydrated at admission. Slowly improving. After her recent admission to [facility] for the same symptoms in early October she saw a neurologist at the [facility]. There was a number of lab tests ordered and the patient's , Dr. Becker, tells me that her B12 was 459. This is within normal limits and the B12 is also within normal limits when checked in early October here. He requested I check IF antibodies and a homocysteine. The only abnormality in the lab done at the [facility] was an elevated methylmalonic acid which can be seen in B12 deficiencies. MMA is not elevated and folate deficiency. If the B12 is WNL and the Homocysteine and MMA are elevated then this can be functional B12 deficiency and supplementation may help. A She is going to be scheduled for neurodiagnostic testing at [facility]. 2. 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 Subtherapeutic INR 4. Cardiomyopathy with a 25% ejection fraction 5. Pulmonary hypertension 6. 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 Paroxysmal atrial fibrillation 8. Chronic systolic congestive heart failure 9. Hypertension 10. Central sleep apnea Will order a homocystine level and also intrinsic factor antibody levels. Continue current care-patient will likely need SNF or rehab unit at discharge She plans on following up at the [facility]. change the warfarin dosing to 1.25 mg ,,,Thursday and 2.5 mg and Thursday SW will follow up for DC planning tomorrow Code Visit Inpatient E&M: [id number] Subs Hosp L2
--- NOTE | 2018-10-26 12:06 | PN_ITS ---
Patient Problems: Active and Suspected Problems (Last Reviewed 10/24/18 @ 12:20 by Jones Buckley DO) Confusion (Acute) Speech disturbance (Acute) Subjective: Patient is an 83-year-old female admitted to the hospital with confusion and a aphasia. She was admitted to the hospital earlier in October with the same problem. MRI of the brain showed no acute abnormality. There were moderate chronic microvascular ischemic changes. MRA of the brain earlier in the month showed no evidence for hemodynamically significant stenosis or occlusive thrombus. The MRA of the neck had a lot of artifact but did not show any major stenosis. EEG showed severe background slowing. There were no epileptiform discharges. Working diagnosis is currently encephalopathy of unknown origin. INR is subtherapeutic at 1.8. Sodium is increased at 146 with a chloride of 113. BUN is 14 with a creatinine of 1.29, down from 1.84 at admission. He states he is not at baseline yet but he is less SOB and the cough is improving. Denies any sore mouth or lesions in the mouth - Physical Exam General: Alert, - - oriented to place and month......able to name several objects acccurately. HEENT: Atraumatic, PERRLA, EOMI Oral: Dry Mucosa Neck: Supple, No Nuchal Rigidity, Trachea Midline Lungs: Clear to auscultation, Normal air movement Cardiovascular: Regular rate, Regular Rhythm, Normal S1, Normal S2, No Gallop Abdomen: Bowel Sounds Present, Soft, Non Tender, Non-Distended Extremities: No edema Skin: No rashes Neurological: Cranial nerves II-XII grossly intact, Neuro grossly intact Psych/Mental Status: Appropriate Vital Signs Temp Pulse Resp BP Pulse Ox 98.2 F 66 15 126/42 H 94 10/26/18 11:20 10/26/18 11:43 10/26/18 11:20 10/26/18 11:20 10/26/18 11:20 Oxygen Flow Rate (L/min) 2 Oxygen Delivery Method Room Air Weight: 139 lb 1.787 oz Body Mass Index (BMI) 25.4 Intake and Output for Last 24 Hours 10/24/18 10/25/18 10/26/18 23:59 23:59 23:59 Intake Total 982.5 / 982.5 931.7 / 931.7 240 / 240 Output Total 50 / 50 250 / 250 200 / 200 Balance 932.5 / 932.5 681.7 / 681.7 40 / 40 Laboratory Tests Past 24 Hrs 10/26/18 10/26/18 05:46 05:46 PT 20.6 H INR 1.8 Sodium 146 H Potassium 4.1 Chloride 113 H Carbon Dioxide 24.0 Anion Gap 9 BUN 14 Creatinine 1.29 H Estim Creat Clear Calc 27.05 Est GFR (MDRD) Af Amer 51 L Est GFR (MDRD) Non-Af 42 L BUN/Creatinine Ratio 10.9 Glucose 89 Calcium 8.3 L Medical Necessity - Tobacco Use Smoking Status: Never smoker Tobacco Use: Non-smoker Assessment/Plan All Active Problems (Last Reviewed 10/24/18 @ 12:20 by Jones Buckley DO) Encephalopathy acute (Acute) Confusion (Acute) Speech disturbance (Acute) Aphasia (Acute) Altered mental status (Acute) Subtherapeutic international normalized ratio (INR) (Acute) Acute systolic CHF (congestive heart failure) (Resolved) Atrial fibrillation with RVR (Resolved) History of breast cancer (Resolved) History of right mastectomy (Resolved) Rectal pain (Resolved) 1. aphasia and confusion at admission - MRI negative and the EEG with severe slowing but no epileptiform activity. Working dx is encephalopathy.....probably metabolic. MRA of the head with no significant stenosis. MRA of the neck was not a very good study. Dehydrated at admission. Slowly improving. After her recent admission to [facility] for the same symptoms in early October she saw a neurologist at the [facility]. There was a number of lab tests ordered and the patient's , Dr. Becker, tells me that her B12 was 459. This is within normal limits and the B12 is also within normal limits when checked in early October here. He requested I check IF antibodies and a homocysteine. The only abnormality in the lab done at the [facility] was an elevated methylmalonic acid which can be seen in B12 deficiencies. MMA is not elevated and folate deficiency. If the B12 is WNL and the Homocysteine and MMA are elevated then this can be functional B12 deficiency and supplementation may help. A She is going to be scheduled for neurodiagnostic testing at [facility]. 2. 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 Subtherapeutic INR 4. Cardiomyopathy with a 25% ejection fraction 5. Pulmonary hypertension 6. 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 Paroxysmal atrial fibrillation 8. Chronic systolic congestive heart failure 9. Hypertension 10. Central sleep apnea Will order a homocystine level and also intrinsic factor antibody levels. Continue current care-patient will likely need SNF or rehab unit at discharge She plans on following up at the [facility]. change the warfarin dosing to 1.25 mg ,,,Thursday and 2.5 mg and Thursday SW will follow up for DC planning tomorrow Code Visit Inpatient E&M: [id number] Subs Hosp L2
[2018-10-26 16:08] LABS: Homocysteine 8.9 umol/L (3.2-10.7)
[2018-10-27] VITALS (7 sets, daily range): BP systolic 135–147; BP diastolic 45–77; PULSE 51–61; RESP 15–16; TEMP 36.2–36.7; O2SAT 94–97; BMI 25.4
[2018-10-27 06:29] LABS: International Normalized Ratio 1.8; Prothrombin Time (Protime)PT. 20.7 SECONDS (11.7-14.9)
[2018-10-27] MEDS: Amiodarone 200 MG Tablet PO (09:07)
[2018-10-27] MEDS: Calcium Carb/Vitamin D 1 TABLET Tablet PO ×2 (09:07→12:09)
[2018-10-27] MEDS: Enoxaparin 30 MG/0.3 ML Syringe SC (09:07)
[2018-10-27] MEDS: Aspirin E.C. 81 MG Tablet PO (09:07)
--- NOTE | 2018-10-27 10:25 | CASEMGMT ---
AIDA spoke with patient's per his request. He said he would like for her to go to the 4th floor rehab unit where she could get the 3 hours of therapy. He feels this will help her so she can return home. AIDA told him AIDA will check with Dr Peña as he is the physician in rehab that would have to approve her to go to rehab. AIDA told him AIDA will let him know what Dr Peña has to say. Jimena HAIRSTON MSW
--- NOTE | 2018-10-27 10:40 | CASEMGMT ---
AIDA spoke with Renetta in TCU and rehab is not willing to take patient. Renetta said she would take patient in TCU. AIDA spoke with patient's and he is in agreement with this plan. AIDA notified physician. Jimena HAIRSTON MSW
--- NOTE | 2018-10-27 11:20 | CASEMGMT ---
Addendum entered by Jimena Lopes 10/27/18 12:47: Renetta in TCU was notified. Jimena MARIE Original Note: Patient's asked to talk with AIDA again. He decided he would like to take patient home. She is close to her baseline. She is not agitated or confused now. She will be starting outpatient therapy at [facility] next week. AIDA told him AIDA will notify physician. Jimena MARIE
--- NOTE | 2018-10-27 11:59 | PCM.DC ---
- Discharge Diagnoses Current Active Problems: Current Active and Chronic Problems (Last Reviewed 10/24/18 @ 12:20 by Jones Buckley DO) Confusion (Acute) Speech disturbance (Acute) You will use the following diet at home:: Cardiac Your food should be the consistency of: Regular Your liquids should be the consistency of: Regular/Thin Discharge Activity: Return to Normal Activity Call your doctor if you observe: Shortness of breath, - - confusion. expressive aphasia. unilateral weakness. Instructions: TIPS (Transjugular Intrahepatic Portosystemic Shunt) Allergies/Adverse Reactions: Allergies Penicillins [PCN] Allergy (Verified 10/24/18 10:12) Rash Medications to take at Discharge Calcium Citrate/Vitamin D3 [Calcium Citrate - Vit D Caplet] 315 ea PO TIDCM 01/05/17 Carvedilol [Coreg (Beta Kori)] 6.25 mg PO BID 01/05/17 Cholecalciferol (Vitamin D3) [Vitamin D3] 2,000 unit PO DAILY 01/05/17 Paroxetine Mesylate [Brisdelle] 7.5 mg PO QHS 01/05/17 psyllium husk (with sugar) 3.4 gram/12 gram oral powder 2 tsp PO DAILY g 03/05/18 warfarin 2.5 mg tablet 1.25 mg PO DAILY 03/31/18 Amiodarone HCl [Cordarone] 200 mg PO DAILY 10/06/18 Aspirin E.C. [Ecotrin] 81 mg PO DAILY 10/06/18 Dymista 1 puff NASAL BID PRN PRN 10/06/18 Orders to be completed after discharge: Basic Metabolic Profile (BMP) Time Frame: 1 Week, Location: Laboratory Prothrombin Time w/INR Time Frame: 1 Week, Location: Laboratory Primary Care Physician: Ben Loomis MD [Primary Care Provider] - Within 2 Weeks Test Results: Test results from this visit will be discussed in further detail at your follow-up appointment, if applicable. Please Follow Up With: [facility] Neurologist When: next scheduled appointment Please Follow Up With: Physical therapy When: next month. Proposed Discharge Date: 10/27/18
--- NOTE | 2018-10-27 12:05 | PCM.DC.SUM ---
Discharge Date and Diagnosis - Problem List Patient Problems: Active and Suspected Problems (Last Reviewed 10/24/18 @ 12:20 by Jones Buckley DO) Confusion (Acute) Speech disturbance (Acute) KALEN (acute kidney injury) (Acute) Date of Admission: 10/24/18 Date of Discharge: 10/27/18 - Primary Discharge Diagnosis Active and Suspected Problems (Last Reviewed 10/24/18 @ 12:20 by Jones Buckley DO) Confusion (Acute) Speech disturbance (Acute) - Secondary Discharge Diagnosis Chronic Problems (Last Reviewed 10/24/18 @ 12:20 by Jones Buckley DO) 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) last ECHO with a 25% EF Secondary pulmonary arterial hypertension (Chronic) Nonrheumatic aortic valve insufficiency (Chronic) Nonrheumatic mitral (valve) insufficiency (Chronic) Non-rheumatic tricuspid valve insufficiency (Chronic) Paroxysmal atrial fibrillation (Chronic) Chronic systolic (congestive) heart failure (Chronic) Dyspnea (Chronic) Abnormal CT of the chest (Chronic) [facility] (current) use of anticoagulants (Chronic) Hypertension (Chronic) Central sleep apnea (Chronic) Hospital Course and Treatment Imaging Results: Clinical Impression(s) from Imaging Studies Brain CT 10/24/18 10:29 IMPRESSION: 1. No acute intracranial hemorrhage or mass effect. Stable exam. 2. Central parenchymal volume loss. White matter changes that are nonspecific but most commonly associated with chronic small vessel ischemic disease. Electronically Signed: Kyle Wright MD at 11:04 EST , Service support , Chest X-Ray 10/24/18 10:45 IMPRESSION: Stable, nonacute portable x-ray examination of the chest. Electronically Signed: Kyle Wright MD at 11:06 EST , Service support , Brain MRI 10/25/18 08:00 IMPRESSION: No acute intracranial abnormality. Moderate chronic microvascular ischemic changes. Electronically Signed: Patti Olivia MD at 8:48 EST Tel , Service support , maria guadalupe--neurology. Operations: None Procedures: None Summary of Care Provided: The patient is a 83 year old F presents with confusion and expressive aphasia. MRI negative for CVA. EEG negative for seizure. May be related an underling neurodegenerative process. Patient is seeing a specialized neurologist at [facility] in this field, and has recently undergone an evaluation. This confusion and aphasia could be related to this as well as some dehydration on arrival. Oxycodone was discontinued. Patient had KALEN on arrival Lasix was discontinued. Cr now 1.2. [] Patient Problems: Active and Suspected Problems (Last Reviewed 10/24/18 @ 12:20 by Jones Buckley DO) Confusion (Acute) Speech disturbance (Acute) KALEN (acute kidney injury) (Acute) - Physical Exam General: Alert, No apparent distress HEENT: Atraumatic, Normocephalic Psych/Mental Status: Normal Affect, Appropriate Vital Signs Temp Pulse Resp BP Pulse Ox 36.2 C L 61 16 135/77 H 95 10/27/18 09:04 10/27/18 11:00 10/27/18 09:04 10/27/18 09:04 10/27/18 09:04 Oxygen Flow Rate (L/min) 2 Oxygen Delivery Method Room Air Weight: 63.1 kg Body Mass Index (BMI) 25.4 Intake and Output for Last 24 Hours 10/25/18 10/26/18 10/27/18 23:59 23:59 23:59 Intake Total 931.7 / 931.7 720 / 720 130 / 130 Output Total 250 / 250 750 / 750 200 / 200 Balance 681.7 / 681.7 -30 / -30 -70 / -70 Laboratory Tests Past 24 Hrs 10/26/18 10/26/18 10/27/18 15:30 15:30 05:15 PT 20.7 H INR 1.8 Homocysteine 8.9 Intrinsic Factor Ab Pending Discharge Diet: Low fat/ Low Cholesterol Discharge Activity: Return to Normal Activity Call your doctor if you observe: Shortness of breath, - - confusion. expressive aphasia. unilateral weakness. Home Medications: Medications to take at Discharge Calcium Citrate/Vitamin D3 [Calcium Citrate - Vit D Caplet] 315 ea PO TIDCM 01/05/17 Carvedilol [Coreg (Beta Kori)] 6.25 mg PO BID 01/05/17 Cholecalciferol (Vitamin D3) [Vitamin D3] 2,000 unit PO DAILY 01/05/17 Paroxetine Mesylate [Brisdelle] 7.5 mg PO QHS 01/05/17 psyllium husk (with sugar) 3.4 gram/12 gram oral powder 2 tsp PO DAILY g 03/05/18 warfarin 2.5 mg tablet 1.25 mg PO DAILY 03/31/18 Amiodarone HCl [Cordarone] 200 mg PO DAILY 10/06/18 Aspirin E.C. [Ecotrin] 81 mg PO DAILY 10/06/18 Dymista 1 puff NASAL BID PRN PRN 10/06/18 Other Amb Orders: Basic Metabolic Profile (BMP) Time Frame: 1 Week, Location: Laboratory Prothrombin Time w/INR Time Frame: 1 Week, Location: Laboratory Primary Care Physician: Ben Loomis MD [Primary Care Provider] - Within 2 Weeks Please Follow Up With: [facility] Neurologist When: next scheduled appointment Please Follow Up With: Physical therapy When: next month. Disposition: Home Minutes spent on discharge:: 35 Patient Condition:: Fair Medical Necessity - Tobacco Use Smoking Status: Never smoker Tobacco Use: Non-smoker Meaningful Use Info Meaningful Use Diagnoses (Choose all that apply): None applicable Code Visit Inpatient E&M: 65422 Disch Hosp
--- NOTE | 2018-10-27 12:10 | DS.PCM_ITS ---
Discharge Date and Diagnosis - Problem List Patient Problems: Active and Suspected Problems (Last Reviewed 10/24/18 @ 12:20 by Jones Buckley DO) Confusion (Acute) Speech disturbance (Acute) KALEN (acute kidney injury) (Acute) Date of Admission: 10/24/18 Date of Discharge: 10/27/18 - Primary Discharge Diagnosis Active and Suspected Problems (Last Reviewed 10/24/18 @ 12:20 by Jones Buckley DO) Confusion (Acute) Speech disturbance (Acute) - Secondary Discharge Diagnosis Chronic Problems (Last Reviewed 10/24/18 @ 12:20 by Jones Buckley DO) 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) last ECHO with a 25% EF Secondary pulmonary arterial hypertension (Chronic) Nonrheumatic aortic valve insufficiency (Chronic) Nonrheumatic mitral (valve) insufficiency (Chronic) Non-rheumatic tricuspid valve insufficiency (Chronic) Paroxysmal atrial fibrillation (Chronic) Chronic systolic (congestive) heart failure (Chronic) Dyspnea (Chronic) Abnormal CT of the chest (Chronic) skilled nursing (current) use of anticoagulants (Chronic) Hypertension (Chronic) Central sleep apnea (Chronic) Hospital Course and Treatment Imaging Results: Clinical Impression(s) from Imaging Studies Brain CT 10/24/18 10:29 IMPRESSION: 1. No acute intracranial hemorrhage or mass effect. Stable exam. 2. Central parenchymal volume loss. White matter changes that are nonspecific but most commonly associated with chronic small vessel ischemic disease. Electronically Signed: Kyle Wright MD at 11:04 EST , Service support , Chest X-Ray 10/24/18 10:45 IMPRESSION: Stable, nonacute portable x-ray examination of the chest. Electronically Signed: Kyle Wright MD at 11:06 EST , Service support , Brain MRI 10/25/18 08:00 IMPRESSION: No acute intracranial abnormality. Moderate chronic microvascular ischemic changes. Electronically Signed: Patti Olivia MD at 8:48 EST Tel , Service support , maria guadalupe--neurology. Operations: None Procedures: None Summary of Care Provided: The patient is a 83 year old F presents with confusion and expressive aphasia. MRI negative for CVA. EEG negative for seizure. May be related an underling neurodegenerative process. Patient is seeing a specialized neurologist at [facility] in this field, and has recently undergone an evaluation. This confusion and aphasia could be related to this as well as some dehydration on arrival. Oxycodone was discontinued. Patient had KALEN on arrival Lasix was discontinued. Cr now 1.2. [] Patient Problems: Active and Suspected Problems (Last Reviewed 10/24/18 @ 12:20 by Jones Buckley DO) Confusion (Acute) Speech disturbance (Acute) KALEN (acute kidney injury) (Acute) - Physical Exam General: Alert, No apparent distress HEENT: Atraumatic, Normocephalic Psych/Mental Status: Normal Affect, Appropriate Vital Signs Temp Pulse Resp BP Pulse Ox 36.2 C L 61 16 135/77 H 95 10/27/18 09:04 10/27/18 11:00 10/27/18 09:04 10/27/18 09:04 10/27/18 09:04 Oxygen Flow Rate (L/min) 2 Oxygen Delivery Method Room Air Weight: 63.1 kg Body Mass Index (BMI) 25.4 Intake and Output for Last 24 Hours 10/25/18 10/26/18 10/27/18 23:59 23:59 23:59 Intake Total 931.7 / 931.7 720 / 720 130 / 130 Output Total 250 / 250 750 / 750 200 / 200 Balance 681.7 / 681.7 -30 / -30 -70 / -70 Laboratory Tests Past 24 Hrs 10/26/18 10/26/18 10/27/18 15:30 15:30 05:15 PT 20.7 H INR 1.8 Homocysteine 8.9 Intrinsic Factor Ab Pending Discharge Diet: Low fat/ Low Cholesterol Discharge Activity: Return to Normal Activity Call your doctor if you observe: Shortness of breath, - - confusion. expressive aphasia. unilateral weakness. Home Medications: Medications to take at Discharge Calcium Citrate/Vitamin D3 [Calcium Citrate - Vit D Caplet] 315 ea PO TIDCM 01/05/17 Carvedilol [Coreg (Beta Kori)] 6.25 mg PO BID 01/05/17 Cholecalciferol (Vitamin D3) [Vitamin D3] 2,000 unit PO DAILY 01/05/17 Paroxetine Mesylate [Brisdelle] 7.5 mg PO QHS 01/05/17 psyllium husk (with sugar) 3.4 gram/12 gram oral powder 2 tsp PO DAILY g 03/05/18 warfarin 2.5 mg tablet 1.25 mg PO DAILY 03/31/18 Amiodarone HCl [Cordarone] 200 mg PO DAILY 10/06/18 Aspirin E.C. [Ecotrin] 81 mg PO DAILY 10/06/18 Dymista 1 puff NASAL BID PRN PRN 10/06/18 Other Amb Orders: Basic Metabolic Profile (BMP) Time Frame: 1 Week, Location: Laboratory Prothrombin Time w/INR Time Frame: 1 Week, Location: Laboratory Primary Care Physician: Ben Loomis MD [Primary Care Provider] - Within 2 Weeks Please Follow Up With: [facility] Neurologist When: next scheduled appointment Please Follow Up With: Physical therapy When: next month. Disposition: Home Minutes spent on discharge:: 35 Patient Condition:: Fair Medical Necessity - Tobacco Use Smoking Status: Never smoker Tobacco Use: Non-smoker Meaningful Use Info Meaningful Use Diagnoses (Choose all that apply): None applicable Code Visit Inpatient E&M: 92103 Disch Hosp
== END 2018-10-27 14:45 | disposition home or self-care (01) | DRG 71 ==
LOC: ED 11:55 → PCU 12:19
PROVIDERS: Internal Medicine; Emergency Provider Emergency Medicine; Family Provider Internal Medicine; PCP Internal Medicine
DX: G93.40 Encephalopathy, unspecified (principal); N17.9 Acute kidney failure, unspecified; I50.22 Chronic systolic (congestive) heart failure; I13.0 Hypertensive heart and chronic kidney disease with heart failure and stage 1 through stage 4 chronic kidney disease, or unspecified chronic kidney disease; I42.9 Cardiomyopathy, unspecified; R47.01 Aphasia; N18.3 Chronic kidney disease, stage 3 (moderate); I27.21 Secondary pulmonary arterial hypertension; G47.31 Primary central sleep apnea; I48.0 Paroxysmal atrial fibrillation; I36.1 Nonrheumatic tricuspid (valve) insufficiency; I34.0 Nonrheumatic mitral (valve) insufficiency; E86.0 Dehydration; R41.0 Disorientation, unspecified; Z91.81 History of falling; Z79.01 Long term (current) use of anticoagulants; Z90.11 Acquired absence of right breast and nipple; Z85.3 Personal history of malignant neoplasm of breast; R90.82 White matter disease, unspecified
CPT/HCPCS: 36415; 70450; 70551; 71045; 80048; 80061; 81001; 83090; 83880; 84484; 85025; 85610; 86340; 92523; 93005; 97116; 97162; 97165; 97535; 97802; 99283; J7030; J7040; A4216

== ENCOUNTER 2018-10-31 11:58 | Inpatient (IN) | payer MEDICARE, OTHER, SELFPAY ==
[2018-10-27 11:01] VITALS: BMI 25.4
[2018-10-31] VITALS (12 sets, daily range): BP systolic 123–160; BP diastolic 46–82; PULSE 52–95; RESP 14–19; TEMP 36.4–36.8; O2SAT 97–100; BMI 26.7; BMI 26.0; BMI 26.1
--- NOTE | 2018-10-31 12:13 | ED.RN ---
PT FRIENDLY AND SMILES. WILL AT TIMES FOLLOW COMMANDS FOR STAFF. WILL AT TIMES SPEAK AND CARRY A CONVERSION.
--- NOTE | 2018-10-31 12:28 | RAD_ITS ---
STUDY: X-RAY CHEST REASON FOR EXAM: Female, 83 years old. Weakness TECHNIQUE: A single frontal view of the chest was obtained. COMPARISON: October 24, 2018 FINDINGS: Lines and tubes: None. Lungs: Under aerated. Increased interstitial markings throughout the lungs without focal airspace opacities. Pleura: No demonstrated abnormality. Mediastinum/adithya: Unremarkable. Cardiovascular: Normal size cardiac silhouette allowing for low volume inspiration. Central vascularity unremarkable. Calcified and tortuous thoracic aorta. Soft tissues: Unremarkable. Bones: Degenerative changes in spine and shoulders. There is mild S-shaped scoliosis of the visualized spine. Upper abdomen: No demonstrated abnormality. RAD/Chest 1 View (Portable) IMPRESSION: No acute cardiopulmonary abnormalities. There is mild diffuse fibrosis. Electronically Signed: Nayeli Pastrana MD at 14:45 EST Tel Direct: [phone], Service support ,
--- NOTE | 2018-10-31 12:37 | ED.DCSUM_ITS ---
- ER Visit Summary Date of Service: 10/31/18 Chief Complaint: Weakness and confusion History of Present Illness: The patient is a 83 F who was diagnosed with aphasia about 25 days ago, was seen in the hospital 2 different times and admitted MRIs were negative however the patient has staggering aphasia. Today she also had weakness, her can no longer care for her. She was apparently in the bathtub and could not get out and he could not get her out. Physical Examination: Not appear in acute distress. Moist mucous membranes, no obvious facial deformity No C-spine tenderness supple neck. Regular rate and rhythm without any obvious murmurs Clear lungs bilaterally speaking in full sentences without any obvious respiratory distress Abdomen soft and nontender no guarding or rebound Moves all extremities without any difficulty or pain. Skin does not show any obvious rashes or lesions, no trauma. Alert oriented to name, knows she is in [place], she has some aphasia but can get 1 or 2 words out. Emergency Department Course and Treatment: Patient has an unremarkable ED workup I will admit her to the hospital for observation for further placement to rehab facility. Disposition: Admit to observation in stable condition Impression: Weakness This note was generated with [email or web address] dictation software. It may contain incorrect words, spelling, and punctuation that were not noted in review of the chart prior to signing ED Disposition - Plan for ED Patient: Chief Complaint: Confusion Referrals: Ben Loomis MD [Primary Care Provider] -
[2018-10-31 12:41] LABS: Hematocrit 40.7 % (37-47); Hemoglobin 13.3 g/dl (12.0-15.0); Mean Corp Hgb Conc 32.7 g/gl (32-36); Mean Corpuscular Hgb 32.7 pg (27.0-32.0); Mean Platelet Vol. 11.8 fl (6.2-12.0); Platelet Count 196 K/mm3 (150-450); RBC Distribution Width CV 14.6 % (11.6-14.6); Red Blood Count 4.07 M/mm3 (4.2-5.4); Scan Indicated on CBC? Y/N NO; White Blood Count 4.8 K/mm3 (4.4-11.0)
--- NOTE | 2018-10-31 12:52 | ED.RN ---
SOCIAL WORK/CASE MANAGMENT AT BEDSIDE.
--- NOTE | 2018-10-31 13:00 | CM.ED ---
SOCIAL WORK ASSESSMENT REFERRAL DATE: 10/31/18 DATE OF ASSESSMENT:10/31/18 INFORMANT:DR. MACIAS REASON FOR CONSULT: INTERMEDIATE PLACEMENT INFORMATION OBTAINED FROM: PHYSICIAN AND PT'S , ADAM LIVING ARRANGEMENTS: HOME WITH IN A 2 STORY HOME WITH STAIR LIFT. REPORTS MASTER BEDROOM ON 1ST FLOOR. STATES PT IS NORMALLY INDEPENDENT WITH ADLS. 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 SUPPORTS: PT HAS GOOD SUPPORT FROM WHO IS MAIN CAREGIVER. SOCIAL/FAMILY STRESSORS: REPORTS PT HAS BEEN ADMITTED X2 TO THE HOSPITAL THIS MONTH. PT HAS 3 DAY QUALIFYING STAY. STATES PLAN WAS FOR TCU UPON LAST ADMISSION, BUT DECIDED TO TAKE PT HOME. REPORTS IS UNABLE TO CONTINUE TO CARE FOR PT AT HOME. MENTAL HEALTH HX: REPORTS PT WENT THROUGH 2 BOUTS OF DEPRESSION THROUGHOUT HER LIFE, ONCE IN HER 20'S THEN AGAIN IN HER 60'S. PT WAS TREATED WITH MEDICATION BOTH TIMES. SUBSTANCE ABUSE HX: DENIES ANY HX OF SUBSTANCE ABUSE FOR PT. INTERVENTIONS: REFERRAL MADE TO TCU-LEFT MESSAGE ON REFERRAL LINE. ASSESSMENT: PT IS A 83 Y/O FEMALE WHO PRESENTS TO THE ED WITH CHIEF COMPLIANT OF CONFUSION. REPORTS PT HAS HAD 2 ADMISSIONS TO THE HOSPITAL THIS MONTH AND HAS HER 3 DAY STAY. STATES PT WAS JUST D/C'ED THURSDAY. REPORTS PLAN WAS FOR TCU, BUT DECIDED AGAINST BETTER JUDGEMENT TO TAKE PT HOME. REPORTS IS NOT ABLE TO CONTINUE CARING FOR PT IN THE HOME AND FEELS SHE WOULD BENEFIT FROM THERAPY BEFORE DECIDING LONG-TERM NEEDS. DISCUSSED OPTIONS FOR SNF. REQUESTING REFERRAL TO TCU. UPDATED DR. MACIAS ON THE ABOVE. PLAN FOR ADMISSION. CALL TO TCU REFERRAL LINE. LEFT MESSAGE REGARDING REFERRAL. PLAN: REFERRAL MADE TO TCU.
[2018-10-31 13:27] LABS: ALB/GLOB Ratio 0.8 RATIO (0.9-2.4); AST(SGOT) 30 U/L (15-37); Alanine Aminotransfer ALT/SGPT 38 U/L (13-56); Albumin, Serum 3.2 g/dL (3.2-5.0); Alkaline Phosphatase 94 U/L (45-117); Anion Gap 7 (5-15); BUN 16 mg/dL (7-18); BUN/Creat Ratio 11.2 RATIO (10-20); Calcium,Total 8.6 mg/dL (8.5-10.1); Chloride 111 mmol/L (98-107); Creatinine, Serum 1.43 mg/dL (0.55-1.02); EST Glomerular Filtration Rate 37 mL/min (>60); Est Glom Filt Rate - Afr Amer 45 mL/min (>60); Glucose 106 mg/dL (74-106); Protein, Total 7.2 g/dL (6.4-8.2); Sodium Level 139 mmol/L (136-145)
--- NOTE | 2018-10-31 14:14 | EKG12_ITS ---
Test Reason : CONFUSION Blood Pressure : / mmHG Vent. Rate : 055 BPM Atrial Rate : 055 BPM P-R Int : 202 ms QRS Dur : 166 ms QT Int : 530 ms P-R-T Axes : 077 -51 145 degrees QTc Int : 507 ms Sinus bradycardia Left axis deviation Left bundle branch block Abnormal ECG Confirmed by CHRISTINA PARADA, TERRI ([id number]), graphics editor TRACY MINOR ([id number] on 11/03/2018 2:23:38 PM Referred By: NICOLETTE Confirmed By:TERRI VASQUEZ MD
--- NOTE | 2018-10-31 14:37 | PCM.HP.STD ---
Problem List (1) Aphasia Status: Acute (2) Cardiomyopathy in diseases classified elsewhere Status: Chronic Comment: last ECHO with a 25% EF (3) Paroxysmal atrial fibrillation Status: Chronic (4) Chronic systolic (congestive) heart failure Status: Chronic (5) Hypertension Status: Chronic Qualifiers: (6) Central sleep apnea Status: Chronic History of Present Illness Date of Admission: 10/31/18 Chief Complaint: Weakness, difficulty ambulating, persistent aphasia. The patient is a 83 year old F with past medical history as mentioned above presented to the emergency room because of weakness, difficulty ambulating and difficulty speaking. The patient is alert and awake but she is not able to speak because of expressive aphasia. She was able to answer simple questions intermittently. She was admitted on October 06, 2018 because of aphasia and confusion, had stroke workup and her MRI brain showed no acute infarction or hemorrhage. During that admission, MRA of the head and neck performed and showed no evidence of hemodynamically significant vascular disease or stenosis. Patient was discharged home during that admission. On October 24, 2018, patient was readmitted because same complaint which is expressive aphasia and both CT scan brain without contrast as well as MRI brain done and showed no evidence of acute intracranial abnormality. During the second admission, EEG done and was abnormal due to presence of severe background slowing but without evidence of epileptiform discharges. One week ago when she was admitted, initial plan was to [facility] to [facility] for physical and occupational therapy but because there was no beds, has been decided to take patient home. According to the , since patient was discharged from the hospital a week ago, she has been having intermittent expressive and receptive aphasia with intermittent confusion as well. Today, she was in the bathtub and she could not get out and the could not help her to get out. The states that he is not able to take care of her at home even longer. At this time, the patient denies any complaints but she is not able to make warts but she was able to answer simple questions. She could not say her name or her date of . She denied chest pain or shortness of breath. She denied focal arm or leg weakness. Denied headache. She had a history of paroxysmal atrial fibrillation, she has been on amiodarone and Coreg for rate control as well as Coumadin for anticoagulation. Her admission INR was 1.8. She had chronic systolic CHF with ejection fraction of 25% on echocardiogram on Mar, 2018 and she has been on aspirin, Coreg and dizziness, she was taken off Lasix because of worsening kidney function. She had a history of hypertension and her blood pressure has been under control with Coreg. In the emergency department, patient was bradycardic, heart rate has been in the 50s, blood pressure stable, afebrile, pulse ox is maintained on room air. Routine blood work was remarkable for creatinine of 1.43, otherwise normal. Her EKG revealed sinus bradycardia with left bundle branch block, no acute changes compared to previous EKGs. Patient does have expressive aphasia but she has no focal motor deficit on exam. She is being admitted for persistent unexplained aphasia, intermittent confusion, physical debility and functional decline and probably she will need placement to [facility] facility. 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) last ECHO with a 25% EF Secondary pulmonary arterial hypertension (Chronic) Nonrheumatic aortic valve insufficiency (Chronic) Nonrheumatic mitral (valve) insufficiency (Chronic) Non-rheumatic tricuspid valve insufficiency (Chronic) Paroxysmal atrial fibrillation (Chronic) Chronic systolic (congestive) heart failure (Chronic) Abnormal CT of the chest (Chronic) longterm (current) use of anticoagulants (Chronic) Hypertension (Chronic) Central sleep apnea (Chronic) Medical History: Medical History (Last Reviewed 10/24/18 @ 12:20 by Jones Buckley DO) 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) I43 last ECHO with a 25% EF Secondary pulmonary arterial hypertension (Chronic) I27.21 Nonrheumatic aortic valve insufficiency (Chronic) I35.1 Nonrheumatic mitral (valve) insufficiency (Chronic) I34.0 Non-rheumatic tricuspid valve insufficiency (Chronic) I36.1 Paroxysmal atrial fibrillation (Chronic) I48.0 Chronic systolic (congestive) heart failure (Chronic) 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) Z79.01 Hypertension (Chronic) I10 Central sleep apnea (Chronic) G47.31 Anxiety and depression F41.9, F32.9 Joint pain M25.50 Breast cancer C50.919 Allergies Penicillins [PCN] Allergy (Verified 10/31/18 12:09) Rash Home Medications: Ambulatory Orders Medication Instructions Recorded Calcium Citrate/Vitamin D3 315 ea PO TIDCM 01/05/17 [Calcium Citrate - Vit D Caplet] Carvedilol [Coreg (Beta Kori)] 6.25 mg PO BID 01/05/17 Cholecalciferol (Vitamin D3) 2,000 unit PO DAILY 01/05/17 [Vitamin D3] Paroxetine Mesylate [Brisdelle] 7.5 mg PO QHS 01/05/17 psyllium husk (with sugar) 3.4 2 tsp PO DAILY g 03/05/18 gram/12 gram oral powder warfarin 2.5 mg tablet 1.25 mg PO DAILY 03/31/18 Amiodarone HCl [Cordarone] 200 mg PO DAILY 10/06/18 Aspirin E.C. 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 Denies: Anorexia, Chills, Fever Eyes: Denies: Blurred vision, Double vision, Drainage, Redness HEENT: Denies: Difficulty Hearing, Ear Pain, Eye Pain, Nasal Congestion, Sore Throat Cardiovascular: Denies: Chest Pain, Chest Pressure, Chest Tightness, Palpitations, Syncope Respiratory: Denies: Cough, Pleuritic Pain, Shortness of Breath, Sputum production, Wheezing Gastrointestinal: Denies: Abdominal Pain, Constipation, Diarrhea, Nausea, Vomiting Genitourinary: Denies: Dysuria, Frequency, Hematuria Musculoskeletal: Denies: Arm Pain, Back Pain, Foot Pain Skin: Denies: Dryness, Rash Neurological: Reports: Change in Speech, Confusion. Denies: Balance problems, Blurred vision, Headaches, Numbness, Tingling Psychiatric: Denies: Anxiety, Depression Endocrine: Denies: Change in Body Habitus, Polydipsia VTE Information - Inpt Only VTE Present on Admission: No VTE Mechan Device Prophylaxis: None VTE Pharm Prophylaxis ordered?: No - Physical Exam General: Alert, Cooperative, No apparent distress, - - Expressive aphasia. HEENT: Atraumatic, PERRLA, EOMI, Normocephalic Oral: Moist Mucosa, No Gingival or Mucosal Lesions/ Ulcerations Neck: Supple, No JVD, Negative Carotid Bruits, Trachea Midline, Thyroid Normal Size and Texture Lungs: Clear to auscultation, No rhonchi, No wheeze, No rales, Diminished Cardiovascular: Regular rate, Regular Rhythm, Normal S1, Normal S2, PMI Normal, Bradycardic Abdomen: Bowel Sounds Present, Soft, Non Tender, Non-Distended, No Hepato-splenomegaly Extremities: No clubbing, No cyanosis, No edema Skin: No rashes, No breakdown Lymphatic: No Cervical, Supraclavicular, or Inguinal Adenopathy Neurological: Cranial nerves II-XII grossly intact, Motor Exam 5/5 strength throughout Psych/Mental Status: Normal Affect, Appropriate Vital Signs Temp Pulse Resp BP Pulse Ox 97.6 F L 52 L 19 H 139/72 H 97 10/31/18 11:59 10/31/18 13:27 10/31/18 13:27 10/31/18 13:27 10/31/18 13:27 Oxygen Delivery Method Room Air Weight: 146 lb 6.191 oz Body Mass Index (BMI) 26.7 Laboratory Tests Past 24 Hrs 10/31/18 10/31/18 10/31/18 12:18 12:18 13:05 WBC 4.8 RBC 4.07 L Hgb 13.3 Hct 40.7 MCV 100.0 H MCH 32.7 H MCHC 32.7 RDW 14.6 RDW Differential 52.0 H Plt Count 196 MPV 11.8 Sodium Cancelled 139 Potassium Cancelled 4.0 Chloride Cancelled 111 H Carbon Dioxide Cancelled 21.0 Anion Gap Cancelled 7 BUN Cancelled 16 Creatinine Cancelled 1.43 H Estim Creat Clear Calc Cancelled 24.40 Est GFR (MDRD) Af Amer Cancelled 45 L Est GFR (MDRD) Non-Af Cancelled 37 L BUN/Creatinine Ratio Cancelled 11.2 Glucose Cancelled 106 Calcium Cancelled 8.6 Total Bilirubin Cancelled 0.80 AST Cancelled 30 ALT Cancelled 38 Alkaline Phosphatase Cancelled 94 Total Protein Cancelled 7.2 Albumin Cancelled 3.2 Globulin Cancelled 4.0 Albumin/Globulin Ratio Cancelled 0.8 L Clinical Impression(s) from Imaging Studies Chest X-Ray 10/31/18 12:28 IMPRESSION: No acute cardiopulmonary abnormalities. There is mild diffuse fibrosis. Electronically Signed: Nayeli Pastrana MD at 14:45 EST Tel Direct: [phone], Service support , Assessment/Plan All Active Problems (Last Updated 10/31/18 @ 14:51 by Jose Radford MD) Aphasia (Acute) This is an 83 years old female patient presented to the ED because of persistent expressive aphasia, intermittent confusion, functional decline in physical debility in context of recent history for admission x2 for the same complaints, had workup for stroke that was negative and she is being admitted for persistent expressive aphasia, functional decline and physical debility and probably she will need placement to [facility] facility. #1 persistent expressive/intermittent receptive aphasia: Of unclear etiology, patient had MRI brain twice this month on October 06 and October 24 and was negative for acute stroke. MRA of the head and neck reviewed as above. Her EKG reviewed as above. Her vital signs are stable, bradycardic. Plan: Admit to PCU for observation, cardiac monitoring, NIH stroke scale every 8 hours x2, neurology consult, continue aspirin and Coumadin, repeat CBC and BMP tomorrow morning, PT OT evaluation and treatment, speech therapy evaluation and treatment, probable placement to [facility] facility. #2 intermittent confusion/physical debility/functional decline: Secondary to age in addition to other medical comorbidities and aphasia. She lives at house with her who states that he cannot take care of her anymore. Plan for PT OT eversion treatment, placement to [facility] facility. #3 chronic systolic CHF: Clinically stable, compensated. According to patient's , she was taken off Lasix recently because of worsening kidney function. She had 2D echocardiogram back on Mar, 2018 and her EF was 25%. Plan to continue Coreg and amiodarone, restart Lasix at a smaller dose 20 mg p.o. daily, repeat BMP tomorrow morning. #4 paroxysmal atrial fibrillation: Rate is controlled, bradycardic. Her bradycardia could be the reason for her weakness and difficulty ambulating. She denied any dizziness or lightheadedness, no syncope or presyncope. Plan to continue amiodarone for rate control, decrease Coreg to 3.125 mg p.o. twice daily, continue Coumadin, repeat INR tomorrow morning. #5 stage III chronic kidney disease: Her baseline creatinine has been around 1.2-1.8 mg/dL since November,. Most recently, it was 1.29, admission creatinine is 1.43. Stable at baseline, plan to restart small dose of Lasix 20 mg p.o. daily, repeat BMP tomorrow morning. #6 hypertension: Blood pressure stable, continue Coreg. #7 obstructive sleep apnea: Continue CPAP at night. #8 history of breast cancer: Status post right mastectomy, stable in remission. #9 DVT prophylaxis: Continue Coumadin, INR is 1.8. This note was generated with [email or web address] dictation software. It may contain incorrect words, spelling, and punctuation that were not noted in checking the note before signing. Code Visit OBSV E&M: 10894 Initial observation care L3
--- NOTE | 2018-10-31 14:47 | HP.PCM_ITS ---
Problem List (1) Aphasia Status: Acute (2) Cardiomyopathy in diseases classified elsewhere Status: Chronic Comment: last ECHO with a 25% EF (3) Paroxysmal atrial fibrillation Status: Chronic (4) Chronic systolic (congestive) heart failure Status: Chronic (5) Hypertension Status: Chronic Qualifiers: (6) Central sleep apnea Status: Chronic History of Present Illness Date of Admission: 10/31/18 Chief Complaint: Weakness, difficulty ambulating, persistent aphasia. The patient is a 83 year old F with past medical history as mentioned above presented to the emergency room because of weakness, difficulty ambulating and difficulty speaking. The patient is alert and awake but she is not able to speak because of expressive aphasia. She was able to answer simple questions intermittently. She was admitted on October 06, 2018 because of aphasia and confusion, had stroke workup and her MRI brain showed no acute infarction or hemorrhage. During that admission, MRA of the head and neck performed and showed no evidence of hemodynamically significant vascular disease or stenosis. Patient was discharged home during that admission. On October 24, 2018, patient was readmitted because same complaint which is expressive aphasia and both CT scan brain without contrast as well as MRI brain done and showed no evidence of acute intracranial abnormality. During the second admission, EEG done and was abnormal due to presence of severe background slowing but without evidence of epileptiform discharges. One week ago when she was admitted, initial plan was to discharge patient [facility] and occupational therapy but because there was no beds, has been decided to take patient home. According to the , since patient was discharged from the hospital a week ago, she has been having intermittent expressive and receptive aphasia with intermittent confusion as well. Today, she was in the bathtub and she could not get out and the could not help her to get out. The states that he is not able to take care of her at home even longer. At this time, the patient denies any complaints but she is not able to make warts but she was able to answer simple questions. She could not say her name or her date of . She denied chest pain or shortness of breath. She denied focal arm or leg weakness. Denied headache. She had a history of paroxysmal atrial fibrillation, she has been on amiodarone and Coreg for rate control as well as Coumadin for anticoagulation. Her admission INR was 1.8. She had chronic systolic CHF with ejection fraction of 25% on echocardiogram on Mar, 2018 and she has been on aspirin, Coreg and dizziness, she was taken off Lasix because of worsening kidney function. She had a history of hypertension and her blood pressure has been under control with Coreg. In the emergency department, patient was bradycardic, heart rate has been in the 50s, blood pressure stable, afebrile, pulse ox is maintained on room air. Routine blood work was remarkable for creatinine of 1.43, otherwise normal. Her EKG revealed sinus bradycardia with left bundle branch block, no acute changes compared to previous EKGs. Patient does have expressive aphasia but she has no focal motor deficit on exam. She is being admitted for persistent unexplained aphasia, intermittent confusion, physical debility and functional decline and probably she will need placement to [facility]. 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) last ECHO with a 25% EF Secondary pulmonary arterial hypertension (Chronic) Nonrheumatic aortic valve insufficiency (Chronic) Nonrheumatic mitral (valve) insufficiency (Chronic) Non-rheumatic tricuspid valve insufficiency (Chronic) Paroxysmal atrial fibrillation (Chronic) Chronic systolic (congestive) heart failure (Chronic) Abnormal CT of the chest (Chronic) jail (current) use of anticoagulants (Chronic) Hypertension (Chronic) Central sleep apnea (Chronic) Medical History: Medical History (Last Reviewed 10/24/18 @ 12:20 by Jones Buckley DO) 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) I43 last ECHO with a 25% EF Secondary pulmonary arterial hypertension (Chronic) I27.21 Nonrheumatic aortic valve insufficiency (Chronic) I35.1 Nonrheumatic mitral (valve) insufficiency (Chronic) I34.0 Non-rheumatic tricuspid valve insufficiency (Chronic) I36.1 Paroxysmal atrial fibrillation (Chronic) I48.0 Chronic systolic (congestive) heart failure (Chronic) 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 terminal (current) use of anticoagulants (Chronic) Z79.01 Hypertension (Chronic) I10 Central sleep apnea (Chronic) G47.31 Anxiety and depression F41.9, F32.9 Joint pain M25.50 Breast cancer C50.919 Allergies Penicillins [PCN] Allergy (Verified 10/31/18 12:09) Rash Home Medications: Ambulatory Orders Medication Instructions Recorded Calcium Citrate/Vitamin D3 315 ea PO TIDCM 01/05/17 [Calcium Citrate - Vit D Caplet] Carvedilol [Coreg (Beta Kori)] 6.25 mg PO BID 01/05/17 Cholecalciferol (Vitamin D3) 2,000 unit PO DAILY 01/05/17 [Vitamin D3] Paroxetine Mesylate [Brisdelle] 7.5 mg PO QHS 01/05/17 psyllium husk (with sugar) 3.4 2 tsp PO DAILY g 03/05/18 gram/12 gram oral powder warfarin 2.5 mg tablet 1.25 mg PO DAILY 03/31/18 Amiodarone HCl [Cordarone] 200 mg PO DAILY 10/06/18 Aspirin E.C. 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 Denies: Anorexia, Chills, Fever Eyes: Denies: Blurred vision, Double vision, Drainage, Redness HEENT: Denies: Difficulty Hearing, Ear Pain, Eye Pain, Nasal Congestion, Sore Throat Cardiovascular: Denies: Chest Pain, Chest Pressure, Chest Tightness, Palpitations, Syncope Respiratory: Denies: Cough, Pleuritic Pain, Shortness of Breath, Sputum production, Wheezing Gastrointestinal: Denies: Abdominal Pain, Constipation, Diarrhea, Nausea, Vomiting Genitourinary: Denies: Dysuria, Frequency, Hematuria Musculoskeletal: Denies: Arm Pain, Back Pain, Foot Pain Skin: Denies: Dryness, Rash Neurological: Reports: Change in Speech, Confusion. Denies: Balance problems, Blurred vision, Headaches, Numbness, Tingling Psychiatric: Denies: Anxiety, Depression Endocrine: Denies: Change in Body Habitus, Polydipsia VTE Information - Inpt Only VTE Present on Admission: No VTE Mechan Device Prophylaxis: None VTE Pharm Prophylaxis ordered?: No - Physical Exam General: Alert, Cooperative, No apparent distress, - - Expressive aphasia. HEENT: Atraumatic, PERRLA, EOMI, Normocephalic Oral: Moist Mucosa, No Gingival or Mucosal Lesions/ Ulcerations Neck: Supple, No JVD, Negative Carotid Bruits, Trachea Midline, Thyroid Normal Size and Texture Lungs: Clear to auscultation, No rhonchi, No wheeze, No rales, Diminished Cardiovascular: Regular rate, Regular Rhythm, Normal S1, Normal S2, PMI Normal, Bradycardic Abdomen: Bowel Sounds Present, Soft, Non Tender, Non-Distended, No Hepato- splenomegaly Extremities: No clubbing, No cyanosis, No edema Skin: No rashes, No breakdown Lymphatic: No Cervical, Supraclavicular, or Inguinal Adenopathy Neurological: Cranial nerves II-XII grossly intact, Motor Exam 5/5 strength throughout Psych/Mental Status: Normal Affect, Appropriate Vital Signs Temp Pulse Resp BP Pulse Ox 97.6 F L 52 L 19 H 139/72 H 97 10/31/18 11:59 10/31/18 13:27 10/31/18 13:27 10/31/18 13:27 10/31/18 13:27 Oxygen Delivery Method Room Air Weight: 146 lb 6.191 oz Body Mass Index (BMI) 26.7 Laboratory Tests Past 24 Hrs 10/31/18 10/31/18 10/31/18 12:18 12:18 13:05 WBC 4.8 RBC 4.07 L Hgb 13.3 Hct 40.7 MCV 100.0 H MCH 32.7 H MCHC 32.7 RDW 14.6 RDW Differential 52.0 H Plt Count 196 MPV 11.8 Sodium Cancelled 139 Potassium Cancelled 4.0 Chloride Cancelled 111 H Carbon Dioxide Cancelled 21.0 Anion Gap Cancelled 7 BUN Cancelled 16 Creatinine Cancelled 1.43 H Estim Creat Clear Calc Cancelled 24.40 Est GFR (MDRD) Af Amer Cancelled 45 L Est GFR (MDRD) Non-Af Cancelled 37 L BUN/Creatinine Ratio Cancelled 11.2 Glucose Cancelled 106 Calcium Cancelled 8.6 Total Bilirubin Cancelled 0.80 AST Cancelled 30 ALT Cancelled 38 Alkaline Phosphatase Cancelled 94 Total Protein Cancelled 7.2 Albumin Cancelled 3.2 Globulin Cancelled 4.0 Albumin/Globulin Ratio Cancelled 0.8 L Clinical Impression(s) from Imaging Studies Chest X-Ray 10/31/18 12:28 IMPRESSION: No acute cardiopulmonary abnormalities. There is mild diffuse fibrosis. Electronically Signed: Nayeli Pastrana MD at 14:45 EST Tel Direct: [phone], Service support , Assessment/Plan All Active Problems (Last Updated 10/31/18 @ 14:51 by Jose Radford MD) Aphasia (Acute) This is an 83 years old female patient presented to the ED because of persistent expressive aphasia, intermittent confusion, functional decline in physical debility in context of recent history for admission x2 for the same complaints, had workup for stroke that was negative and she is being admitted for persistent expressive aphasia, functional decline and physical debility and probably she will need placement to [facility]. #1 persistent expressive/intermittent receptive aphasia: Of unclear etiology, patient had MRI brain twice this month on October 06 and October 24 and was negative for acute stroke. MRA of the head and neck reviewed as above. Her EKG reviewed as above. Her vital signs are stable, bradycardic. Plan: Admit to PCU for observation, cardiac monitoring, NIH stroke scale every 8 hours x2, neurology consult, continue aspirin and Coumadin, repeat CBC and BMP tomorrow morning, PT OT evaluation and treatment, speech therapy evaluation and treatment, probable placement to [facility]. #2 intermittent confusion/physical debility/functional decline: Secondary to age in addition to other medical comorbidities and aphasia. She lives at house with her who states that he cannot take care of her anymore. Plan for PT OT eversion treatment, placement to [facility]. #3 chronic systolic CHF: Clinically stable, compensated. According to patient's , she was taken off Lasix recently because of worsening kidney function. She had 2D echocardiogram back on Mar, 2018 and her EF was 25%. Plan to continue Coreg and amiodarone, restart Lasix at a smaller dose 20 mg p.o. daily, repeat BMP tomorrow morning. #4 paroxysmal atrial fibrillation: Rate is controlled, bradycardic. Her bradycardia could be the reason for her weakness and difficulty ambulating. She denied any dizziness or lightheadedness, no syncope or presyncope. Plan to c ontinue amiodarone for rate control, decrease Coreg to 3.125 mg p.o. twice daily, continue Coumadin, repeat INR tomorrow morning. #5 stage III chronic kidney disease: Her baseline creatinine has been around 1.2-1.8 mg/dL since November,. Most recently, it was 1.29, admission creatinine is 1.43. Stable at baseline, plan to restart small dose of Lasix 20 mg p.o. daily, repeat BMP tomorrow morning. #6 hypertension: Blood pressure stable, continue Coreg. #7 obstructive sleep apnea: Continue CPAP at night. #8 history of breast cancer: Status post right mastectomy, stable in remission. #9 DVT prophylaxis: Continue Coumadin, INR is 1.8. This note was generated with [employer] dictation software. It may contain incorrect words, spelling, and punctuation that were not noted in checking the note before signing. Code Visit OBSV E&M: 77930 Initial observation care L3
[2018-10-31] MEDS: 0.9% NaCl Peripheral Flush Adult/Peds IV ×2 (18:35→18:36)
[2018-10-31] MEDS: Carvedilol 3.125 MG TABLET PO (21:00)
[2018-10-31 23:28] LABS: Mucous, Urine 0 SEEN /hpf (<or=2+); Red Blood Cells-Urine 0 SEEN /hpf (0-5)
[2018-11-01] VITALS (11 sets, daily range): BP systolic 135–150; BP diastolic 52–73; PULSE 50–96; RESP 16–18; TEMP 36.4–37.1; O2SAT 96–99
[2018-11-01 00:10] LABS: Color, Urine Yellow (Yellow); Glucose, Dipstick Normal (Normal); Ketone-Dipstick Negative (Negative); Leukocyte Esterase-Dipstick 100 /ul (Negative); Nitrite-Dipstick Positive (Negative); Occult Blood-Urine 25 /ul (Negative); Protein-Dipstick Negative (Negative); Urine Bilirubin Dipstick Negative (Negative); Urine Clarity Clear (Clear); Urine Urobilinogen Normal (Normal)
[2018-11-01 00:23] LABS: Bacteria 2+ /hpf (None Seen); Squamous Epithelial Cells - UA 0-5 SEEN /hpf (5-10); White Blood Cells 5-10 SEEN /hpf (0-5)
[2018-11-01 06:50] LABS: Absolute Lymphocyte Count 1.44 X10^3/ul (0.83-4.51); Absolute Neutrophil Count 2.2 X10^3/uL (2.0-7.7); Basophil# 0.05 X10^3/uL; Basophil% 1.1 % (0-1); Eosinophil# 0.19 X10^3/uL; Eosinophils% 4.4 % (0-5); Hematocrit 36.1 % (37-47); Lymphocyte # 1.44 X10^3/ul (4.0); Mean Corp Hgb Conc 33.2 g/gl (32-36); Mean Corpuscular Hgb 32.9 pg (27.0-32.0); Mean Corpuscular Volume 98.9 fL (81-99); Mean Platelet Vol. 11.5 fl (6.2-12.0); Monocyte% 11.5 % (0-10); Neutrophil # 2.18 X10^3/uL (2.7-7.7); Platelet Count 181 K/mm3 (150-450); RBC Distribution Width CV 14.5 % (11.6-14.6); RBC Distribution Width SD 50.9 fl (35.1-43.9); Red Blood Count 3.65 M/mm3 (4.2-5.4); White Blood Count 4.4 K/mm3 (4.4-11.0)
[2018-11-01 06:55] LABS: International Normalized Ratio 2.4
[2018-11-01 06:57] LABS: Anion Gap 9 (5-15); BUN 16 mg/dL (7-18); BUN/Creat Ratio 11.7 RATIO (10-20); Calcium,Total 8.4 mg/dL (8.5-10.1); Chloride 113 mmol/L (98-107); Creatinine, Serum 1.37 mg/dL (0.55-1.02); EST Glomerular Filtration Rate 39 mL/min (>60); Est Glom Filt Rate - Afr Amer 48 mL/min (>60); Glucose 90 mg/dL (74-106); Potassium 3.7 mmol/L (3.5-5.1); Sodium Level 146 mmol/L (136-145)
[2018-11-01 07:17] LABS: POSITIVE COUNT NO; POSITIVE DIFFERENTIAL NO; POSITIVE MORPHOLOGY NO
[2018-11-01] MEDS: Aspirin E.C. 81 MG Tablet PO (09:04)
[2018-11-01] MEDS: Carvedilol 3.125 MG TABLET PO ×2 (09:16→21:00)
[2018-11-01] MEDS: Amiodarone 200 MG Tablet PO (09:16)
--- NOTE | 2018-11-01 09:40 | CASEMGMT ---
Addendum entered by Mela Carpenter 11/01/18 15:16: SW placed green sheet on chart with instructions that pt can to go TCU if she is sitter free and without chemical restraints for 24 hours. If she is not able to be sitter free for 24 hours SW will need to follow up on Thursday. AMPARO Shea, NIGHT MANAGER Original Note: SW spoke w/pt and in room in regard to discharge plan. states that he took pt home after the last admission and it was a mistake. He states she was doing well until Thursday, she was fluctuating between being lucid and being confused. states that Thursday night pt became very restless, and realized he could not care for her, so brought her into the hospital. SW spoke w/ about options, he is agreeable for pt to go to TCU at discharge. Pt has a sitter at present however. SW explained will need to check with TCU to see if they are able to take pt given that pt has a sitter at present, will let pt and know. SW spoke w/Zenaida in TCU, they can take pt but she needs to be sitter free for 24 hours, and with no chemical restraints either. SW let foam charger know and will let physician know. SW did let know as well that pt needs to be without a sitter for 24 hours, as they do not have the staff to have a sitter in the room in TCU. states understanding. SW will continue to follow. AMPARO Shea, CYNTHIA
--- NOTE | 2018-11-01 09:51 | NURSING ---
Sitter out of room, bed alarm on and at bedside.
--- NOTE | 2018-11-01 11:28 | CON.PCM_ITS ---
Reason for Consult Date of Consultation: 11/01/18 Reason for Consultation: aphasia History of Present Illness: The patient is a 83 year old F readmitted for evaluation. 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 yesterday she couldnt figure out how to get in and out of the tub and felt she was unsafe. he plans to have her admitted to TCU. previously her aphasia was attributed to uti. reports rocephin then keflex for uti. he has noted some memory changes over the past year or so, but abrupt cataclysmic event about 3 weeks. per admit note:The patient is a 83 year old F with past medical history as mentioned above presented to the emergency room because of weakness, difficulty ambulating and difficulty speaking. The patient is alert and awake but she is not able to speak because of expressive aphasia. She was able to answer simple questions intermittently. She was admitted on October 06, 2018 because of aphasia and confusion, had stroke workup and her MRI brain showed no acute infarction or hemorrhage. During that admission, MRA of the head and neck performed and showed no evidence of hemodynamically significant vascular disease or stenosis. Patient was discharged home during that admission. On October 24, 2018, patient was readmitted because same complaint which is expressive aphasia and both CT scan brain without contrast as well as MRI brain done and showed no evidence of acute intracranial abnormality. During the second admission, EEG done and was abnormal due to presence of severe background slowing but without evidence of epileptiform discharges. One week ago when she was admitted, initial plan was to [facility] to [facility] for [facility] but because there was no beds, has been decided to take patient home. According to the , since patient was discharged from the hospital a week ago, she has been having intermittent expressive and receptive aphasia with intermittent confusion as well. Today, she was in the bathtub and she could not get out and the could not help her to get out. The states that he is not able to take care of her at home even longer. At this time, the patient denies any complaints but she is not able to make warts but she was able to answer simple questions. She could not say her name or her date of . She denied chest pain or shortness of breath. She denied focal arm or leg weakness. Denied headache. She had a history of paroxysmal atrial fibrillation, she has been on amiodarone and Coreg for rate control as well as Coumadin for anticoagulation. Her admission INR was 1.8. She had chronic systolic CHF with ejection fraction of 25% on echocardiogram on Mar, 2018 and she has been on aspirin, Coreg and dizziness, she was taken off Lasix because of worsening kidney function. She had a history of hypertension and her blood pressure has been under control with Coreg. In the emergency department, patient was bradycardic, heart rate has been in the 50s, blood pressure stable, afebrile, pulse ox is maintained on room air. Routine blood work was remarkable for creatinine of 1.43, otherwise normal. Her EKG revealed sinus bradycardia with left bundle branch block, no acute changes compared to previous EKGs. Patient does have expressive aphasia but she has no focal motor deficit on exam. She is being admitted for persistent unexplained aphasia, intermittent confusion, physical debility and functional decline and probably she will need placement to [facility] facility. Past Medical History Past Medical History (Chronic Problems): Chronic Problems (Last Updated 10/31/18 @ 14:51 by Jose Radford MD) History of breast cancer (Chronic) History of right mastectomy (Chronic) 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) last ECHO with a 25% EF Secondary pulmonary arterial hypertension (Chronic) Nonrheumatic aortic valve insufficiency (Chronic) Nonrheumatic mitral (valve) insufficiency (Chronic) Non-rheumatic tricuspid valve insufficiency (Chronic) Paroxysmal atrial fibrillation (Chronic) Chronic systolic (congestive) heart failure (Chronic) Abnormal CT of the chest (Chronic) group home (current) use of anticoagulants (Chronic) Hypertension (Chronic) Central sleep apnea (Chronic) Medical History: Medical History (Last Updated 10/31/18 @ 14:51 by Jose Radford MD) 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) I43 last ECHO with a 25% EF Secondary pulmonary arterial hypertension (Chronic) I27.21 Nonrheumatic aortic valve insufficiency (Chronic) I35.1 Nonrheumatic mitral (valve) insufficiency (Chronic) I34.0 Non-rheumatic tricuspid valve insufficiency (Chronic) I36.1 Paroxysmal atrial fibrillation (Chronic) I48.0 Chronic systolic (congestive) heart failure (Chronic) I50.22 group home (current) use of anticoagulants (Chronic) Z79.01 Hypertension (Chronic) I10 Central sleep apnea (Chronic) G47.31 Anxiety and depression F41.9, F32.9 Joint pain M25.50 Breast cancer C50.919 Allergies Penicillins [PCN] Allergy (Verified 10/31/18 12:09) Rash Home Medications: Ambulatory Orders Medication Instructions Recorded Calcium Citrate/Vitamin D3 315 ea PO TIDCM 01/05/17 [Calcium Citrate - Vit D Caplet] Carvedilol [Coreg (Beta Kori)] 6.25 mg PO BID 01/05/17 Cholecalciferol (Vitamin D3) 2,000 unit PO DAILY 01/05/17 [Vitamin D3] Paroxetine Mesylate [Brisdelle] 7.5 mg PO QHS 01/05/17 psyllium husk (with sugar) 3.4 2 tsp PO DAILY g 03/05/18 gram/12 gram oral powder warfarin 2.5 mg tablet 1.25 mg PO DAILY 03/31/18 Amiodarone HCl [Cordarone] 200 mg PO DAILY 10/06/18 Aspirin E.C. 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 follows simple commands. states her age at 84 Neurological: Cranial nerves II-XII grossly intact, - - severe receptive aphasia, Psych/Mental Status: Normal Affect Vital Signs Temp Pulse Resp BP Pulse Ox 37.0 C 55 L 16 135/52 H 98 11/01/18 10:01 11/01/18 10:01 11/01/18 10:01 11/01/18 10:01 11/01/18 10:01 Oxygen Delivery Method Room Air Weight: 62.6 kg Body Mass Index (BMI) 26.0 Intake and Output for Last 24 Hours 10/30/18 10/31/18 11/01/18 23:59 23:59 23:59 Intake Total 500 / 500 120 / 120 Output Total 8 / 8 Balance 500 / 500 112 / 112 Laboratory Tests Past 24 Hrs 10/31/18 10/31/18 10/31/18 12:18 12:18 13:05 WBC 4.8 RBC 4.07 L Hgb 13.3 Hct 40.7 MCV 100.0 H MCH 32.7 H MCHC 32.7 RDW 14.6 RDW Differential 52.0 H Plt Count 196 MPV 11.8 Immature Gran % (Auto) Neut % (Auto) Lymph % (Auto) [place] % (Auto) Eos % (Auto) Baso % (Auto) Absolute Neuts (auto) Absolute Lymphs (auto) Total Counted PT INR Sodium Cancelled 139 Potassium Cancelled 4.0 Chloride Cancelled 111 H Carbon Dioxide Cancelled 21.0 Anion Gap Cancelled 7 BUN Cancelled 16 Creatinine Cancelled 1.43 H Estim Creat Clear Calc Cancelled 24.40 Est GFR (MDRD) Af Amer Cancelled 45 L Est GFR (MDRD) Non-Af Cancelled 37 L BUN/Creatinine Ratio Cancelled 11.2 Glucose Cancelled 106 Calcium Cancelled 8.6 Total Bilirubin Cancelled 0.80 AST Cancelled 30 ALT Cancelled 38 Alkaline Phosphatase Cancelled 94 Total Protein Cancelled 7.2 Albumin Cancelled 3.2 Globulin Cancelled 4.0 Albumin/Globulin Ratio Cancelled 0.8 L Urine Color Urine Clarity Urine pH Ur Specific [place] Urine Protein Urine Glucose (UA) Urine Ketones Urine Occult Blood Urine Nitrite Urine Bilirubin Urine Urobilinogen Ur Leukocyte Esterase Urine RBC Urine WBC Ur Squamous Epith Cells Urine Bacteria Urine Mucus 10/31/18 11/01/18 11/01/18 23:10 05:50 05:50 WBC 4.4 RBC 3.65 L Hgb 12.0 Hct 36.1 L MCV 98.9 MCH 32.9 H MCHC 33.2 RDW 14.5 RDW Differential 50.9 H Plt Count 181 MPV 11.5 Immature Gran % (Auto) 0.000 Neut % (Auto) 50.0 Lymph % (Auto) 33.0 [place] % (Auto) 11.5 H Eos % (Auto) 4.4 Baso % (Auto) 1.1 H Absolute Neuts (auto) 2.2 Absolute Lymphs (auto) 1.44 Total Counted Not Reportable PT INR Sodium 146 H Potassium 3.7 Chloride 113 H Carbon Dioxide 24.0 Anion Gap 9 BUN 16 Creatinine 1.37 H Estim Creat Clear Calc 24.30 Est GFR (MDRD) Af Amer 48 L Est GFR (MDRD) Non-Af 39 L BUN/Creatinine Ratio 11.7 Glucose 90 Calcium 8.4 L Total Bilirubin AST ALT Alkaline Phosphatase Total Protein Albumin Globulin Albumin/Globulin Ratio Urine Color Yellow Urine Clarity Clear Urine pH 6.0 Ur Specific [place] 1.020 Urine Protein Negative Urine Glucose (UA) Normal Urine Ketones Negative Urine Occult Blood 25 H Urine Nitrite Positive H Urine Bilirubin Negative Urine Urobilinogen Normal Ur Leukocyte Esterase 100 H Urine RBC 0 SEEN Urine WBC 5-10 SEEN Ur Squamous Epith Cells 0-5 SEEN Urine Bacteria 2+ Urine Mucus 0 SEEN 11/01/18 05:50 WBC RBC Hgb Hct MCV MCH MCHC RDW RDW Differential Plt Count MPV Immature Gran % (Auto) Neut % (Auto) Lymph % (Auto) [place] % (Auto) Eos % (Auto) Baso % (Auto) Absolute Neuts (auto) Absolute Lymphs (auto) Total Counted PT 26.0 H INR 2.4 Sodium Potassium Chloride Carbon Dioxide Anion Gap BUN Creatinine Estim Creat Clear Calc Est GFR (MDRD) Af Amer Est GFR (MDRD) Non-Af BUN/Creatinine Ratio Glucose Calcium Total Bilirubin AST ALT Alkaline Phosphatase Total Protein Albumin Globulin Albumin/Globulin Ratio Urine Color Urine Clarity Urine pH Ur Specific [place] Urine Protein Urine Glucose (UA) Urine Ketones Urine Occult Blood Urine Nitrite Urine Bilirubin Urine Urobilinogen Ur Leukocyte Esterase Urine RBC Urine WBC Ur Squamous Epith Cells Urine Bacteria Urine Mucus mri x2 reviewed, 10/07 and 10/25/18, no acute, mild/moderate subcortical wm changes. mra head and neck no signif stenosis Current Home Med List Medication Instructions Recorded Confirmed Type Calcium Citrate/Vitamin D3 315 ea PO TIDCM 01/05/17 10/31/18 History [Calcium Citrate - Vit D Caplet] Carvedilol [Coreg (Beta Kori)] 6.25 mg PO BID 01/05/17 10/31/18 History Cholecalciferol (Vitamin D3) 2,000 unit PO DAILY 01/05/17 10/31/18 History [Vitamin D3] Paroxetine Mesylate [Brisdelle] 7.5 mg PO QHS 01/05/17 10/31/18 History psyllium husk (with sugar) 3.4 2 tsp PO DAILY g 03/05/18 10/31/18 History gram/12 gram oral powder warfarin 2.5 mg tablet 1.25 mg PO DAILY 03/31/18 10/31/18 History Amiodarone HCl [Cordarone] 200 mg PO DAILY 10/06/18 10/31/18 History Aspirin E.C. [Ecotrin] 81 mg PO DAILY 10/06/18 10/31/18 History Dymista 1 puff NASAL BID PRN PRN 10/06/18 10/31/18 History Current Medications Generic Name Dose Route Start Last Admin Trade Name Freq PRN Reason Stop Dose Admin Acetaminophen 650 mg 10/31/18 15:29 Tylenol PO Q6H PRN PRN Fever, headache, pain Amiodarone HCl 200 mg 11/01/18 10:00 11/01/18 09:16 Cordarone PO 200 mg DAILY YARY Administration Aspirin 81 mg 11/01/18 08:00 11/01/18 09:04 Ecotrin PO 81 mg DAILYCM YARY Administration Carvedilol 3.125 mg 10/31/18 22:00 11/01/18 09:16 Coreg PO 3.1249 mg BID YARY Administration Magnesium Hydroxide 30 ml 10/31/18 15:29 Milk Of Magnesia PO DAILY PRN Constipation Non-Formulary Medication 7.5 mg 10/31/18 22:00 Paroxetine Mesylate [Brisdelle] PO QHS YARY Ondansetron HCl 4 mg 10/31/18 15:29 Zofran IV Q8H PRN PRN NAUSEA/VOMITING Sodium Chloride 5 - 15 ml 10/31/18 18:10 10/31/18 18:36 IV 10 ml UD PRN Administration SALINE FLUSH Warfarin Sodium 1.25 mg 11/01/18 17:00 Coumadin (Pbkc) PO DAILY@1700 [facility] Protocol Assessment/Plan All Active Problems (Last Updated 10/31/18 @ 14:51 by Jose Radford MD) Aphasia (Acute) encephalopathy, aphasia, superimposed on pre-existing mild dementia with negati ve mri x2 and eegx1. previously attributed to uti, urine now questionable and no fever or leukocytosis. ? seizure vs mri negative tia repeat eeg suggest alf, considering
--- NOTE | 2018-11-01 17:26 | PCM.PROGNOTE ---
Subjective: Patient was seen and examined today, I talked with her today who is in the room. We are awaiting placement in a nursing home facility for the patient. Patient is nonverbal to this examiner at this time - Physical Exam General: Alert, No apparent distress, Well developed HEENT: Atraumatic, PERRLA, EOMI, Normocephalic Oral: Moist Mucosa Neck: Supple, No Nuchal Rigidity, Trachea Midline, Thyroid Normal Size and Texture Lungs: Clear to auscultation, Normal air movement, No rhonchi, No wheeze, No rales Cardiovascular: Regular rate, Regular Rhythm, Normal S1, Normal S2, No murmurs, No Ectopic Activity, PMI Normal, No rub noted, No Gallop Abdomen: Bowel Sounds Present, Soft, Non Tender, Non-Distended, No hernias noted Extremities: No clubbing, No cyanosis, No edema, Capillary Refill Less than 3 Seconds Skin: No rashes, No breakdown Musculoskeletal: No Tenderness to Palpation of Joints or Extremities Neurological: Cranial nerves II-XII grossly intact, Neuro grossly intact, Sensory exam intact to light touch and pain, Coordination normal Psych/Mental Status: Normal Affect, Appropriate, Alert and oriented to time, place, person, mood and affect Vital Signs Temp Pulse Resp BP Pulse Ox 98.0 F 53 L 16 142/73 H 97 11/01/18 14:00 11/01/18 15:55 11/01/18 14:00 11/01/18 14:00 11/01/18 14:00 Oxygen Delivery Method Room Air Weight: 62.6 kg Body Mass Index (BMI) 26.0 Intake and Output for Last 24 Hours 10/30/18 10/31/18 11/01/18 23:59 23:59 23:59 Intake Total 500 / 500 820 / 820 Output Total 258 / 258 Balance 500 / 500 562 / 562 Laboratory Tests Past 24 Hrs 10/31/18 11/01/18 11/01/18 23:10 05:50 05:50 WBC 4.4 RBC 3.65 L Hgb 12.0 Hct 36.1 L MCV 98.9 MCH 32.9 H MCHC 33.2 RDW 14.5 RDW Differential 50.9 H Plt Count 181 MPV 11.5 Immature Gran % (Auto) 0.000 Neut % (Auto) 50.0 Lymph % (Auto) 33.0 [place] % (Auto) 11.5 H Eos % (Auto) 4.4 Baso % (Auto) 1.1 H Absolute Neuts (auto) 2.2 Absolute Lymphs (auto) 1.44 Total Counted Not Reportable PT INR Sodium 146 H Potassium 3.7 Chloride 113 H Carbon Dioxide 24.0 Anion Gap 9 BUN 16 Creatinine 1.37 H Estim Creat Clear Calc 24.30 Est GFR (MDRD) Af Amer 48 L Est GFR (MDRD) Non-Af 39 L BUN/Creatinine Ratio 11.7 Glucose 90 Calcium 8.4 L Urine Color Yellow Urine Clarity Clear Urine pH 6.0 Ur Specific [place] 1.020 Urine Protein Negative Urine Glucose (UA) Normal Urine Ketones Negative Urine Occult Blood 25 H Urine Nitrite Positive H Urine Bilirubin Negative Urine Urobilinogen Normal Ur Leukocyte Esterase 100 H Urine RBC 0 SEEN Urine WBC 5-10 SEEN Ur Squamous Epith Cells 0-5 SEEN Urine Bacteria 2+ Urine Mucus 0 SEEN 11/01/18 05:50 WBC RBC Hgb Hct MCV MCH MCHC RDW RDW Differential Plt Count MPV Immature Gran % (Auto) Neut % (Auto) Lymph % (Auto) [place] % (Auto) Eos % (Auto) Baso % (Auto) Absolute Neuts (auto) Absolute Lymphs (auto) Total Counted PT 26.0 H INR 2.4 Sodium Potassium Chloride Carbon Dioxide Anion Gap BUN Creatinine Estim Creat Clear Calc Est GFR (MDRD) Af Amer Est GFR (MDRD) Non-Af BUN/Creatinine Ratio Glucose Calcium Urine Color Urine Clarity Urine pH Ur Specific [place] Urine Protein Urine Glucose (UA) Urine Ketones Urine Occult Blood Urine Nitrite Urine Bilirubin Urine Urobilinogen Ur Leukocyte Esterase Urine RBC Urine WBC Ur Squamous Epith Cells Urine Bacteria Urine Mucus Medical Necessity - Tobacco Use Smoking Status: Never smoker Assessment/Plan All Active Problems (Last Updated 10/31/18 @ 14:51 by Jose Radford MD) Aphasia (Acute) #1 generalized weakness-probably secondary to deconditioning with an overlay of dementia, the plan is for the patient to be admitted to a nursing home facility for rehab. #2 dementia #3 hypertension #4 paroxysmal atrial fibrillation #5 cardiomyopathy-type unknown #6 chronic systolic congestive heart failure Code Visit Inpatient E&M: 11184 Init Hosp L3
--- NOTE | 2018-11-01 17:32 | PN_ITS ---
Subjective: Patient was seen and examined today, I talked with her today who is in the room. We are awaiting placement in a senior living facility for the patient. Patient is nonverbal to this examiner at this time - Physical Exam General: Alert, No apparent distress, Well developed HEENT: Atraumatic, PERRLA, EOMI, Normocephalic Oral: Moist Mucosa Neck: Supple, No Nuchal Rigidity, Trachea Midline, Thyroid Normal Size and Texture Lungs: Clear to auscultation, Normal air movement, No rhonchi, No wheeze, No rales Cardiovascular: Regular rate, Regular Rhythm, Normal S1, Normal S2, No murmurs, No Ectopic Activity, PMI Normal, No rub noted, No Gallop Abdomen: Bowel Sounds Present, Soft, Non Tender, Non-Distended, No hernias noted Extremities: No clubbing, No cyanosis, No edema, Capillary Refill Less than 3 Seconds Skin: No rashes, No breakdown Musculoskeletal: No Tenderness to Palpation of Joints or Extremities Neurological: Cranial nerves II-XII grossly intact, Neuro grossly intact, Sensory exam intact to light touch and pain, Coordination normal Psych/Mental Status: Normal Affect, Appropriate, Alert and oriented to time, place, person, mood and affect Vital Signs Temp Pulse Resp BP Pulse Ox 98.0 F 53 L 16 142/73 H 97 11/01/18 14:00 11/01/18 15:55 11/01/18 14:00 11/01/18 14:00 11/01/18 14:00 Oxygen Delivery Method Room Air Weight: 62.6 kg Body Mass Index (BMI) 26.0 Intake and Output for Last 24 Hours 10/30/18 10/31/18 11/01/18 23:59 23:59 23:59 Intake Total 500 / 500 820 / 820 Output Total 258 / 258 Balance 500 / 500 562 / 562 Laboratory Tests Past 24 Hrs 10/31/18 11/01/18 11/01/18 23:10 05:50 05:50 WBC 4.4 RBC 3.65 L Hgb 12.0 Hct 36.1 L MCV 98.9 MCH 32.9 H MCHC 33.2 RDW 14.5 RDW Differential 50.9 H Plt Count 181 MPV 11.5 Immature Gran % (Auto) 0.000 Neut % (Auto) 50.0 Lymph % (Auto) 33.0 [place] % (Auto) 11.5 H Eos % (Auto) 4.4 Baso % (Auto) 1.1 H Absolute Neuts (auto) 2.2 Absolute Lymphs (auto) 1.44 Total Counted Not Reportable PT INR Sodium 146 H Potassium 3.7 Chloride 113 H Carbon Dioxide 24.0 Anion Gap 9 BUN 16 Creatinine 1.37 H Estim Creat Clear Calc 24.30 Est GFR (MDRD) Af Amer 48 L Est GFR (MDRD) Non-Af 39 L BUN/Creatinine Ratio 11.7 Glucose 90 Calcium 8.4 L Urine Color Yellow Urine Clarity Clear Urine pH 6.0 Ur Specific [place] 1.020 Urine Protein Negative Urine Glucose (UA) Normal Urine Ketones Negative Urine Occult Blood 25 H Urine Nitrite Positive H Urine Bilirubin Negative Urine Urobilinogen Normal Ur Leukocyte Esterase 100 H Urine RBC 0 SEEN Urine WBC 5-10 SEEN Ur Squamous Epith Cells 0-5 SEEN Urine Bacteria 2+ Urine Mucus 0 SEEN 11/01/18 05:50 WBC RBC Hgb Hct MCV MCH MCHC RDW RDW Differential Plt Count MPV Immature Gran % (Auto) Neut % (Auto) Lymph % (Auto) [place] % (Auto) Eos % (Auto) Baso % (Auto) Absolute Neuts (auto) Absolute Lymphs (auto) Total Counted PT 26.0 H INR 2.4 Sodium Potassium Chloride Carbon Dioxide Anion Gap BUN Creatinine Estim Creat Clear Calc Est GFR (MDRD) Af Amer Est GFR (MDRD) Non-Af BUN/Creatinine Ratio Glucose Calcium Urine Color Urine Clarity Urine pH Ur Specific [place] Urine Protein Urine Glucose (UA) Urine Ketones Urine Occult Blood Urine Nitrite Urine Bilirubin Urine Urobilinogen Ur Leukocyte Esterase Urine RBC Urine WBC Ur Squamous Epith Cells Urine Bacteria Urine Mucus Medical Necessity - Tobacco Use Smoking Status: Never smoker Assessment/Plan All Active Problems (Last Updated 10/31/18 @ 14:51 by Jose Radford MD) Aphasia (Acute) #1 generalized weakness-probably secondary to deconditioning with an overlay of dementia, the plan is for the patient to be admitted to a senior living facility for rehab. #2 dementia #3 hypertension #4 paroxysmal atrial fibrillation #5 cardiomyopathy-type unknown #6 chronic systolic congestive heart failure Code Visit Inpatient E&M: 97443 Init Hosp L3
[2018-11-02 02:47] VITALS: BP 132/45; PULSE 54; RESP 18; TEMP 37.2; O2SAT 97
[2018-11-02 03:04] VITALS: PULSE 54
[2018-11-02 07:54] VITALS: PULSE 53
[2018-11-02 08:13] VITALS: O2SAT 93
[2018-11-02 08:27] VITALS: BP 133/53; PULSE 58; RESP 16; TEMP 36.9; O2SAT 96
--- NOTE | 2018-11-02 08:39 | PCM.TXEXTCAR ---
- Diet 10/31/18 15:30 Diet: Cardiac/Low Cholesterol Food consistency:: Regular Liquid Consistency:: Regular/Thin - Therapies Weight Bearing: Full weight bearing Physical Therapy: Eval and Treat Occupational Therapy: Eval and Treat - Problem/Diagnosis (1) Dementia Status: Acute Current Visit: Yes (2) Aphasia Status: Chronic Current Visit: No (3) Cardiomyopathy in diseases classified elsewhere Status: Chronic Comment: last ECHO with a 25% EF Current Visit: No (4) Secondary pulmonary arterial hypertension Status: Chronic Current Visit: No (5) Paroxysmal atrial fibrillation Status: Chronic Current Visit: No (6) Chronic systolic (congestive) heart failure Status: Chronic Current Visit: No (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 is a 83 YOF admitted to [facility] on 10/31/2018 d/t persistent fluctuating aphasia and debility, unable to transfer from bathtub w/ assistance; reports concern re: ability to care for Pt. w/ current level of functioning; admitted earlier this month (10/06/2018 and 10/24/2018) for similar symptoms w/ CVA workup negative; baseline cognitive dysfunction w/ uptake in confusion over last couple of months w/ recurrent falls (6 this year). 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 Pt.?s reporting Pt. is functionally (I) at home w/ exception of events leading to admission; progressive cognitive declines impacting working memory / recent memory w/ gradual expressive / receptive language declines (though not significantly limiting in nature) w/ precipitous drop following 10/06/2018 admission, w/ following presentation best described as fluctuating. Both deny any current or prior issues w/ PO intake tolerance. 10/24/2018 CXR revealed stable, non-acute portable x-ray examination of the chest. 10/24/2018 CT revealed a stable exam w/ no acute intracranial hemorrhage or mass effect; central parenchymal volume loss; white matter changes that are nonspecific but most commonly associated with chronic small vessel ischemic disease. 10/25/2018 MRI revealed no acute intracranial abnormality; moderate chronic microvascular ischemic changes. 10/25/2018 EEG revealed abnormal results w/ severe background slowing. 10/31/2018 CXR revealed no acute cardiopulmonary abnormalities; mild diffuse fibrosis. Pt. presenting w/ fluctuating nonfluent expressive aphasia w/ what appears to be a receptive component w/ progressive decline in cognitive functioning, w/ cognitive declines somewhat confluent w/ expressive language abilities. Etiology of cause and / or prognosis unclear at this time. When considering the information provided by the Pt.?s , one may consider progressive nonfluent aphasia vs. primary progressive aphasia. Anticipated discharge to [facility] TCU when medically appropriate, would consider advancing w/ assessment consisting of BEST / Quick Aphasia Battery (QAB) w/ supplemental cognitive communication assessment (MMSE / TENA-R / TENA-III). - Follow Up Care Primary Care Physician: Ben Loomis MD [Primary Care Provider] -
--- NOTE | 2018-11-02 08:42 | TREXTCAR_ITS ---
- Diet 10/31/18 15:30 Diet: Cardiac/Low Cholesterol Food consistency:: Regular Liquid Consistency:: Regular/Thin - Therapies Weight Bearing: Full weight bearing Physical Therapy: Eval and Treat Occupational Therapy: Eval and Treat - Problem/Diagnosis (1) Dementia Status: Acute Current Visit: Yes (2) Aphasia Status: Chronic Current Visit: No (3) Cardiomyopathy in diseases classified elsewhere Status: Chronic Comment: last ECHO with a 25% EF Current Visit: No (4) Secondary pulmonary arterial hypertension Status: Chronic Current Visit: No (5) Paroxysmal atrial fibrillation Status: Chronic Current Visit: No (6) Chronic systolic (congestive) heart failure Status: Chronic Current Visit: No (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 is a 83 YOF admitted to [facility] on 10/31/2018 d/t persistent fluctuating aphasia and debility, unable to transfer from bathtub w/ assistance; reports concern re: ability to care for Pt. w/ current level of functioning; admitted earlier this month (10/06/2018 and 10/24/2018) for similar symptoms w/ CVA workup negative; baseline cognitive dysfunction w/ uptake in confusion over last couple of months w/ recurrent falls (6 this year). 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 Pt.?s reporting Pt. is functionally (I) at home w/ exception of events leading to admission; progressive cognitive declines impacting working memory / recent memory w/ gradual expressive / receptive language declines (though not significantly limiting in nature) w/ precipitous drop following 10/06/2018 admission, w/ following presentation best described as fluctuating. Both deny any current or prior issues w/ PO intake tolerance. 10/24/2018 CXR revealed stable, non-acute portable x-ray examination of the chest. 10/24/2018 CT revealed a stable exam w/ no acute intracranial hemorrhage or mass effect; central parenchymal volume loss; white matter changes that are nonspecific but most commonly associated with chronic small vessel ischemic disease. 10/25/2018 MRI revealed no acute intracranial abnormality; moderate chronic microvascular ischemic changes. 10/25/2018 EEG revealed abnormal results w/ severe background slowing. 10/31/2018 CXR revealed no acute cardiopulmonary abnormalities; mild diffuse fibrosis. Pt. presenting w/ fluctuating nonfluent expressive aphasia w/ what appears to be a receptive component w/ progressive decline in cognitive functioning, w/ cognitive declines somewhat confluent w/ expressive language abilities. Etiology of cause and / or prognosis unclear at this time. When considering the information provided by the Pt.?s , one may consider progressive nonfluent aphasia vs. primary progressive aphasia. Anticipated discharge to [facility] TCU when medically appropriate, would consider advancing w/ assessment consisting of BEST / Quick Aphasia Battery (QAB) w/ supplemental cognitive communication assessment (MMSE / TENA-R / TENA-III). - Follow Up Care Primary Care Physician: Ben Loomis MD [Primary Care Provider] -
[2018-11-02] MEDS: Amiodarone 200 MG Tablet PO (09:46)
[2018-11-02] MEDS: Aspirin E.C. 81 MG Tablet PO (09:46)
[2018-11-02] MEDS: Carvedilol 3.125 MG TABLET PO (09:46)
[2018-11-02] MEDS: Acetaminophen 325 MG Tablet 650 MG PO (09:52)
[2018-11-02 10:57] VITALS: PULSE 52
--- NOTE | 2018-11-02 13:13 | EEG ---
- Electroencephalogram This is an 18 channel echoencephalogram performed utilizing the International 10-20 electrode placement protocol on this 83-year-old female with a history of mild dementia with more frequent changes in mental status and negative workup including MRI x2. EKG reference leads were obtained as well as hyperventilation and photic stimulation. Background activity is slow at 5-6 Hz in the posterior leads. There is also superimposed intermittent frontal delta activity. There are no clear lateralizing or epileptiform changes noted. Hyperventilation is performed for 2 minutes but discontinued early due to poor effort. The patient remained awake throughout the recording. EKG appeared to be regular throughout the recording and photic stimulation did generate a normal symmetric driving response in the posterior leads. Impression: Abnormal echoencephalogram due to the presence of symmetric slowing, moderate to severe with superimposed intermittent frontal delta activity.
--- NOTE | 2018-11-03 10:11 | DS.PCM_ITS ---
Discharge Date and Diagnosis - Problem List Patient Problems: Active and Suspected Problems (Last Updated 10/31/18 @ 14:51 by Jose Radford MD) Weakness (Acute) Confusion (Acute) Expressive aphasia (Acute) Date of Admission: 10/31/18 Date of Discharge: 11/02/18 - Primary Discharge Diagnosis Active and Suspected Problems (Last Updated 10/31/18 @ 14:51 by Jose Radford MD) #1 generalized weakness-probably secondary to deconditioning with an overlay of dementia #2 dementia #3 hypertension #4 paroxysmal atrial fibrillation #5 cardiomyopathy-type unknown #6 chronic systolic congestive heart failure #7 chronic kidney disease stage III secondary to hypertension - Secondary Discharge Diagnosis Chronic Problems (Last Updated 10/31/18 @ 14:51 by Jose Radford MD) Atrial fibrillation (Chronic) History of breast cancer (Chronic) History of right mastectomy (Chronic) Aphasia (Chronic) 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) last ECHO with a 25% EF Secondary pulmonary arterial hypertension (Chronic) Nonrheumatic aortic valve insufficiency (Chronic) Nonrheumatic mitral (valve) insufficiency (Chronic) Non-rheumatic tricuspid valve insufficiency (Chronic) Paroxysmal atrial fibrillation (Chronic) Chronic systolic (congestive) heart failure (Chronic) Abnormal CT of the chest (Chronic) group home (current) use of anticoagulants (Chronic) Hypertension (Chronic) Central sleep apnea (Chronic) Hospital Course and Treatment Operations: None Procedures: None Summary of Care Provided: The patient is a 83 year old F who was seen in the emergency room at [facility] with chief complaint of weakness and confusion. Patient's brought the patient in because he was unable to care for her at home-she has a history of dementia and a history of aphasia. Workup in the emergency room including lab was remarkable for a creatinine of 1.43, chest x-ray was unremarkable, CBC was unremarkable. Patient was admitted to PCU, she was seen by PT and OT, and maintained on her home meds. No complications were noted during her hospital stay. Arrangements were made for the patient to go to TCU for short-term rehab. On 11/02/18, patient was seen and examined: On examination she appeared her stated age. Vital signs as documented. Skin warm and dry and without overt rashes. Neck without JVD. Lungs clear. Heart exam notable for regular rhythm, normal sounds and absence of murmurs, rubs or gallops. Abdomen unremarkable and without evidence of organomegaly, masses, or abdominal aortic enlargement. Extremities nonedematous. Neuro: Cranial nerves II through XII are grossly intact, no focal motor deficits were noted, sensation to light touch and pinprick is intact. Patient was only able to speak a few words Psych: Patient was confused, she was only able to speak a few words. On 11/02/18, patient was seen and examined felt to be in stable condition for transfer to TCU. Patient Problems: Active and Suspected Problems (Last Updated 10/31/18 @ 14:51 by Jose Radford MD) Weakness (Acute) Confusion (Acute) Expressive aphasia (Acute) - Physical Exam Vital Signs Temp Pulse Resp BP Pulse Ox 98.4 F 52 L 16 133/53 H 96 11/02/18 08:27 11/02/18 10:57 11/02/18 08:27 11/02/18 08:27 11/02/18 08:27 Oxygen Delivery Method Room Air Weight: 62.6 kg Body Mass Index (BMI) 26.0 Intake and Output for Last 24 Hours 11/01/18 11/02/18 11/03/18 23:59 23:59 23:59 Intake Total 940 / 940 Output Total 358 / 358 0 / 0 Balance 582 / 582 0 / 0 Home Medications: Medications to take at Discharge Calcium Citrate/Vitamin D3 [Calcium Citrate - Vit D Caplet] 315 ea PO TIDCM 01/05/17 Carvedilol [Coreg (Beta Kori)] 6.25 mg PO BID 01/05/17 Cholecalciferol (Vitamin D3) [Vitamin D3] 2,000 unit PO DAILY 01/05/17 Paroxetine Mesylate [Brisdelle] 7.5 mg PO QHS 01/05/17 psyllium husk (with sugar) 3.4 gram/12 gram oral powder 2 tsp PO DAILY g 03/05/18 warfarin 2.5 mg tablet 1.25 mg PO DAILY 03/31/18 Amiodarone HCl [Cordarone] 200 mg PO DAILY 10/06/18 Aspirin E.C. [Ecotrin] 81 mg PO DAILY 10/06/18 Dymista 1 puff NASAL BID PRN PRN 10/06/18 Acetaminophen [Tylenol Tablet] 650 mg PO Q6H PRN PRN tablet 11/02/18 Cyanocobalamin (Vitamin B-12) [B-12] 1,000 mcg PO DAILY 11/02/18 Primary Care Physician: Ben Loomis MD [Primary Care Provider] - [facility] Minutes spent on discharge:: 32 Patient Condition:: Stable Medical Necessity - Tobacco Use Smoking Status: Never smoker Meaningful Use Info Meaningful Use Diagnoses (Choose all that apply): None applicable Code Visit Inpatient E&M: 48527 Disch Hosp
== END 2018-11-02 13:13 | disposition skilled nursing facility (03) | DRG 948 ==
LOC: ED 13:58 → PCU 15:09
PROVIDERS: Admitting Provider Hospitalist; Emergency Provider Emergency Medicine; Family Provider Internal Medicine; PCP Internal Medicine; Visit Provider Internal Medicine
DX: R53.1 Weakness (principal); R47.01 Aphasia; I13.0 Hypertensive heart and chronic kidney disease with heart failure and stage 1 through stage 4 chronic kidney disease, or unspecified chronic kidney disease; I50.22 Chronic systolic (congestive) heart failure; I42.9 Cardiomyopathy, unspecified; N18.3 Chronic kidney disease, stage 3 (moderate); Z85.3 Personal history of malignant neoplasm of breast; Z90.11 Acquired absence of right breast and nipple; I48.0 Paroxysmal atrial fibrillation; Z79.01 Long term (current) use of anticoagulants; F03.90 Unspecified dementia, unspecified severity, without behavioral disturbance, psychotic disturbance, mood disturbance, and anxiety; I27.21 Secondary pulmonary arterial hypertension; I35.1 Nonrheumatic aortic (valve) insufficiency; I36.1 Nonrheumatic tricuspid (valve) insufficiency; G47.31 Primary central sleep apnea
CPT/HCPCS: 36415; 71045; 80048; 80053; 81001; 85025; 85027; 85610; 92523; 93005; 99285; J7030; A4216

== ENCOUNTER 2018-11-02 13:20 | Inpatient (IN) | payer MEDICARE, OTHER, SELFPAY ==
[2018-11-02 13:29] VITALS: BMI 26.7
--- NOTE | 2018-11-02 13:35 | NURSING ---
pt arrived from [facility] at 1330
[2018-11-02 13:48] VITALS: BP 138/72; PULSE 55; RESP 18; TEMP 36.4; O2SAT 95
[2018-11-02 13:49] VITALS: BMI 26.5
--- NOTE | 2018-11-02 15:18 | PCM.HP.STD ---
Problem List (1) Weakness Status: Acute (2) Confusion Status: Acute (3) Expressive aphasia Status: Acute (4) Atrial fibrillation Status: Chronic (5) Chronic systolic (congestive) heart failure Status: Chronic (6) Hypertension Status: Chronic Qualifiers: (7) Central sleep apnea Status: Chronic History of Present Illness Date of Admission: 11/02/18 Chief Complaint: Here for rehabilitation, strengthening, prior to disposition determination. The patient is a 83 year old Female with below past medical history presented to [facility] Emergency Department 10/31/2018 with weakness, confusion. 10/31/2018 Chest X-ray mild diffuse fibrosis, no acute findings. Aphasia x 25 days. Hospitalized x 2, MRI brain negative x 2. Weakness, could not get out of tub. can no longer care for her. Emergency Department evaluation unremarkable. 10/31/2018 Admit to Hospital. PT/OT or placement. Consult neurology. Low dose Lasix for chronic systolic heart failure. 10/31/2018 Dr. Martin recommended repeat EEG. Consider Keppra for ?seizure activity. 11/01/2018 Patient non-verbal. Admit to TCU with debility, here for rehabilitation, strengthening, prior to disposition determination. Past Medical History Past Medical History (Chronic Problems): Chronic Problems (Last Updated 10/31/18 @ 14:51 by Jose Radford MD) Atrial fibrillation (Chronic) History of breast cancer (Chronic) History of right mastectomy (Chronic) Aphasia (Chronic) 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) last ECHO with a 25% EF Secondary pulmonary arterial hypertension (Chronic) Nonrheumatic aortic valve insufficiency (Chronic) Nonrheumatic mitral (valve) insufficiency (Chronic) Non-rheumatic tricuspid valve insufficiency (Chronic) Paroxysmal atrial fibrillation (Chronic) Chronic systolic (congestive) heart failure (Chronic) Abnormal CT of the chest (Chronic) halfway (current) use of anticoagulants (Chronic) Hypertension (Chronic) Central sleep apnea (Chronic) Medical History: Medical History (Last Updated 10/31/18 @ 14:51 by Jose Radford MD) 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) I43 last ECHO with a 25% EF Secondary pulmonary arterial hypertension (Chronic) I27.21 Nonrheumatic aortic valve insufficiency (Chronic) I35.1 Nonrheumatic mitral (valve) insufficiency (Chronic) I34.0 Non-rheumatic tricuspid valve insufficiency (Chronic) I36.1 Paroxysmal atrial fibrillation (Chronic) I48.0 Chronic systolic (congestive) heart failure (Chronic) 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) Z79.01 Hypertension (Chronic) I10 Central sleep apnea (Chronic) G47.31 Anxiety and depression F41.9, F32.9 Joint pain M25.50 Breast cancer C50.919 Allergies Penicillins [PCN] Allergy (Verified 10/31/18 12:09) Rash Home Medications: Ambulatory Orders Medication Instructions Recorded Calcium Citrate/Vitamin D3 315 ea PO TIDCM 01/05/17 [Calcium Citrate - Vit D Caplet] Carvedilol [Coreg (Beta Kori)] 6.25 mg PO BID 01/05/17 Cholecalciferol (Vitamin D3) 2,000 unit PO DAILY 01/05/17 [Vitamin D3] Paroxetine Mesylate [Brisdelle] 7.5 mg PO QHS 01/05/17 psyllium husk (with sugar) 3.4 2 tsp PO DAILY g 03/05/18 gram/12 gram oral powder warfarin 2.5 mg tablet 1.25 mg PO DAILY 03/31/18 Amiodarone HCl [Cordarone] 200 mg PO DAILY 10/06/18 Aspirin E.C. [Ecotrin] 81 mg PO DAILY 10/06/18 Dymista 1 puff NASAL BID PRN PRN 10/06/18 Acetaminophen [Tylenol Tablet] 650 mg PO Q6H PRN PRN tablet 11/02/18 Cyanocobalamin (Vitamin B-12) 1,000 mcg PO DAILY 11/02/18 [B-12] Surgical History: Surgical History (Last Updated 10/31/18 @ 14:51 by Jose Radford MD) History of right mastectomy (Chronic) Z98.890, Z90.11 H/O right mastectomy Z90.11 Surgical History: appendectomy, cataract, mastectomy - Right., - - Lumpectomy, tubal ligation, right breast mass biopsy. 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 Lives: Spouse/ Significant Other Smoking Status: Never smoker Tobacco Use: Non-smoker Alcohol: None Drugs: None - *Family History Maternal Family History: Family History (Last Reviewed 10/24/18 @ 12:20 by Jones Buckley DO) Grandmother Diabetes History Items: No pertinent history Paternal Family History: Family History (Last Reviewed 10/24/18 @ 12:20 by Jones Buckley DO) Grandmother Diabetes History Items: No pertinent history Review of Systems Constitutional: Denies: Chills, Fever, Weight Change HEENT: Denies: Head Aches, Sinus Congestion, Sinus Drainage Cardiovascular: Denies: Chest Pain, Palpitations Respiratory: Denies: Cough, Shortness of breath at rest, Sputum production Gastrointestinal: Denies: Abdominal Pain, Nausea, Vomiting Genitourinary: Reports: Dysuria Musculoskeletal: Denies: Joint Pain, Joint Tenderness Skin: Denies: Rash, Wounds Neurological: Denies: Numbness, Tingling, Focal weakness Psychiatric: Denies: Anxiety, Depression, Homicidal Ideations, Suicidal Ideations Hematologic/ Lymphatic: Denies: Easy Bruising, Easy Bleeding VTE Information - Inpt Only VTE Present on Admission: No VTE Mechan Device Prophylaxis: Knee High CRISTIAN Hose VTE Pharm Prophylaxis ordered?: No Reason prophylaxis not ordered:: Treatment Not Indicated Patient Problems: Active and Suspected Problems (Last Updated 10/31/18 @ 14:51 by Jose Radford MD) Weakness (Acute) Confusion (Acute) Expressive aphasia (Acute) - Physical Exam General: Alert, Oriented x3, Cooperative HEENT: Atraumatic, PERRLA, EOMI, Normocephalic Neck: Supple, No JVD, Negative Carotid Bruits Lungs: Clear to auscultation, Normal air movement Cardiovascular: Regular rate, No murmurs Abdomen: Bowel Sounds Present, Soft, Non Tender Extremities: No edema, Capillary Refill Less than 3 Seconds Skin: No rashes, No breakdown Musculoskeletal: No Tenderness to Palpation of Joints or Extremities Neurological: Cranial nerves II-XII grossly intact Psych/Mental Status: Normal Affect, Appropriate Vital Signs Temp Pulse Resp BP Pulse Ox 97.6 F L 55 L 18 138/72 H 95 11/02/18 13:48 11/02/18 13:48 11/02/18 13:48 11/02/18 13:48 11/02/18 13:48 Oxygen Delivery Method Room Air Weight: 61.689 kg Body Mass Index (BMI) 26.5 Assessment/Plan All Active Problems (Last Updated 10/31/18 @ 14:51 by Jose Radford MD) Dementia (Acute) Weakness (Acute) Confusion (Acute) Expressive aphasia (Acute) 83 year old female with below past medical history hospitalized for weakness, expressive aphasia, complicated by underlying dementia, admitted to TCU with debility, here for rehabilitation, strengthening, prior to disposition determination. Debility - PT/OT. Expressive Aphasia - ST. Pain - Tylenol 1000MG Q6H PRN mild pain. Bowel - Miralax 17GM daily, Dulcolax 10MG daily PRN. Pneumonia vaccination - Administer Prevnar 13 and/or Pneumovax 23 as necessary. DVT prophylaxis - not necessary, already on warfarin. Atrial Fibrillation - Coreg 6.25MG BID, Amiodarone 200MG daily, Warfarin 1.25MG daily, follow INR, stop aspirin 81MG daily, no clinical benefit when already on warfarin. Calcium deficiency - Os-Raymond 500MG 1/2 tablet TID. Vitamin D deficiency - D3 2000IU daily. Vitamin B12 deficiency - B12 1000MCG daily. Nutrition - Ensure Enlive 120ML 4x/day. 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 Chronic systolic congestive heart failure (EF 35%) - Coreg 6.25MG BID, consider Entresto, but resident's lifespan is short, doubt adding Entresto would give her much benefit. Dysuria - UA + nitrite, urine culture pending, Cipro 250MG BID x 10 days pending culture. Abdominal pain - order X-ray of abdomen.
[2018-11-02 15:21] VITALS: BMI 26.6
--- NOTE | 2018-11-02 15:25 | HP.PCM_ITS ---
Problem List (1) Weakness Status: Acute (2) Confusion Status: Acute (3) Expressive aphasia Status: Acute (4) Atrial fibrillation Status: Chronic (5) Chronic systolic (congestive) heart failure Status: Chronic (6) Hypertension Status: Chronic Qualifiers: (7) Central sleep apnea Status: Chronic History of Present Illness Date of Admission: 11/02/18 Chief Complaint: Here for rehabilitation, strengthening, prior to disposition determination. The patient is a 83 year old Female with below past medical history presented to [facility] Emergency Department 10/31/2018 with weakness, confusion. 10/31/2018 Chest X-ray mild diffuse fibrosis, no acute findings. Aphasia x 25 days. Hospitalized x 2, MRI brain negative x 2. Weakness, could not get out of tub. can no longer care for her. Emergency Department evaluation unremarkable. 10/31/2018 Admit to Hospital. PT/OT or placement. Consult neurology. Low dose Lasix for chronic systolic heart failure. 10/31/2018 Dr. Martin recommended repeat EEG. Consider Keppra for ?seizure activity. 11/01/2018 Patient non-verbal. Admit to TCU with debility, here for rehabilitation, strengthening, prior to disposition determination. Past Medical History Past Medical History (Chronic Problems): Chronic Problems (Last Updated 10/31/18 @ 14:51 by Jose Radford MD) Atrial fibrillation (Chronic) History of breast cancer (Chronic) History of right mastectomy (Chronic) Aphasia (Chronic) 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) last ECHO with a 25% EF Secondary pulmonary arterial hypertension (Chronic) Nonrheumatic aortic valve insufficiency (Chronic) Nonrheumatic mitral (valve) insufficiency (Chronic) Non-rheumatic tricuspid valve insufficiency (Chronic) Paroxysmal atrial fibrillation (Chronic) Chronic systolic (congestive) heart failure (Chronic) Abnormal CT of the chest (Chronic) [facility] (current) use of anticoagulants (Chronic) Hypertension (Chronic) Central sleep apnea (Chronic) Medical History: Medical History (Last Updated 10/31/18 @ 14:51 by Jose Radford MD) 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) I43 last ECHO with a 25% EF Secondary pulmonary arterial hypertension (Chronic) I27.21 Nonrheumatic aortic valve insufficiency (Chronic) I35.1 Nonrheumatic mitral (valve) insufficiency (Chronic) I34.0 Non-rheumatic tricuspid valve insufficiency (Chronic) I36.1 Paroxysmal atrial fibrillation (Chronic) I48.0 Chronic systolic (congestive) heart failure (Chronic) 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 (Chronic) Z79.01 Hypertension (Chronic) I10 Central sleep apnea (Chronic) G47.31 Anxiety and depression F41.9, F32.9 Joint pain M25.50 Breast cancer C50.919 Allergies Penicillins [PCN] Allergy (Verified 10/31/18 12:09) Rash Home Medications: Ambulatory Orders Medication Instructions Recorded Calcium Citrate/Vitamin D3 315 ea PO TIDCM 01/05/17 [Calcium Citrate - Vit D Caplet] Carvedilol [Coreg (Beta Kori)] 6.25 mg PO BID 01/05/17 Cholecalciferol (Vitamin D3) 2,000 unit PO DAILY 01/05/17 [Vitamin D3] Paroxetine Mesylate [Brisdelle] 7.5 mg PO QHS 01/05/17 psyllium husk (with sugar) 3.4 2 tsp PO DAILY g 03/05/18 gram/12 gram oral powder warfarin 2.5 mg tablet 1.25 mg PO DAILY 03/31/18 Amiodarone HCl [Cordarone] 200 mg PO DAILY 10/06/18 Aspirin E.C. [Ecotrin] 81 mg PO DAILY 10/06/18 Dymista 1 puff NASAL BID PRN PRN 10/06/18 Acetaminophen [Tylenol Tablet] 650 mg PO Q6H PRN PRN tablet 11/02/18 Cyanocobalamin (Vitamin B-12) 1,000 mcg PO DAILY 11/02/18 [B-12] Surgical History: Surgical History (Last Updated 10/31/18 @ 14:51 by Jose Radford MD) History of right mastectomy (Chronic) Z98.890, Z90.11 H/O right mastectomy Z90.11 Surgical History: appendectomy, cataract, mastectomy - Right., - - Lumpectomy, tubal ligation, right breast mass biopsy. 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 Lives: Spouse/ Significant Other Smoking Status: Never smoker Tobacco Use: Non-smoker Alcohol: None Drugs: None - *Family History Maternal Family History: Family History (Last Reviewed 10/24/18 @ 12:20 by Jones Buckley DO) Grandmother Diabetes History Items: No pertinent history Paternal Family History: Family History (Last Reviewed 10/24/18 @ 12:20 by Jones Buckley DO) Grandmother Diabetes History Items: No pertinent history Review of Systems Constitutional: Denies: Chills, Fever, Weight Change HEENT: Denies: Head Aches, Sinus Congestion, Sinus Drainage Cardiovascular: Denies: Chest Pain, Palpitations Respiratory: Denies: Cough, Shortness of breath at rest, Sputum production Gastrointestinal: Denies: Abdominal Pain, Nausea, Vomiting Genitourinary: Reports: Dysuria Musculoskeletal: Denies: Joint Pain, Joint Tenderness Skin: Denies: Rash, Wounds Neurological: Denies: Numbness, Tingling, Focal weakness Psychiatric: Denies: Anxiety, Depression, Homicidal Ideations, Suicidal Ideations Hematologic/ Lymphatic: Denies: Easy Bruising, Easy Bleeding VTE Information - Inpt Only VTE Present on Admission: No VTE Mechan Device Prophylaxis: Knee High CRISTIAN Hose VTE Pharm Prophylaxis ordered?: No Reason prophylaxis not ordered:: Treatment Not Indicated Patient Problems: Active and Suspected Problems (Last Updated 10/31/18 @ 14:51 by Jose Radford MD) Weakness (Acute) Confusion (Acute) Expressive aphasia (Acute) - Physical Exam General: Alert, Oriented x3, Cooperative HEENT: Atraumatic, PERRLA, EOMI, Normocephalic Neck: Supple, No JVD, Negative Carotid Bruits Lungs: Clear to auscultation, Normal air movement Cardiovascular: Regular rate, No murmurs Abdomen: Bowel Sounds Present, Soft, Non Tender Extremities: No edema, Capillary Refill Less than 3 Seconds Skin: No rashes, No breakdown Musculoskeletal: No Tenderness to Palpation of Joints or Extremities Neurological: Cranial nerves II-XII grossly intact Psych/Mental Status: Normal Affect, Appropriate Vital Signs Temp Pulse Resp BP Pulse Ox 97.6 F L 55 L 18 138/72 H 95 11/02/18 13:48 11/02/18 13:48 11/02/18 13:48 11/02/18 13:48 11/02/18 13:48 Oxygen Delivery Method Room Air Weight: 61.689 kg Body Mass Index (BMI) 26.5 Assessment/Plan All Active Problems (Last Updated 10/31/18 @ 14:51 by Jose Radford MD) Dementia (Acute) Weakness (Acute) Confusion (Acute) Expressive aphasia (Acute) 83 year old female with below past medical history hospitalized for weakness, expressive aphasia, complicated by underlying dementia, admitted to TCU with debility, here for rehabilitation, strengthening, prior to disposition determination. * Debility - PT/OT. * Expressive Aphasia - ST. * Pain - Tylenol 1000MG Q6H PRN mild pain. * Bowel - Miralax 17GM daily, Dulcolax 10MG daily PRN. * Pneumonia vaccination - Administer Prevnar 13 and/or Pneumovax 23 as necessary. * DVT prophylaxis - not necessary, already on warfarin. * Atrial Fibrillation - Coreg 6.25MG BID, Amiodarone 200MG daily, Warfarin 1.25MG daily, follow INR, stop aspirin 81MG daily, no clinical benefit when already on warfarin. * Calcium deficiency - Os-Raymond 500MG 1/2 tablet TID. * Vitamin D deficiency - D3 2000IU daily. * Vitamin B12 deficiency - B12 1000MCG daily. * Nutrition - Ensure Enlive 120ML 4x/day. * Depression - Paroxetine 10MG QHS, resident doing well with chronic custodial use, GDR clinically contraindicated. * Chronic systolic congestive heart failure (EF 35%) - Coreg 6.25MG BID, consider Entresto, but resident's lifespan is short, doubt adding Entresto would give her much benefit. * Dysuria - UA + nitrite, urine culture pending, Cipro 250MG BID x 10 days pending culture. * Abdominal pain - order X-ray of abdomen.
[2018-11-02 16:00] VITALS: BP 122/54; PULSE 59; RESP 18; TEMP 36.8; O2SAT 91
[2018-11-02] MEDS: Calcium Carb/Vitamin D 1 TABLET Tablet 0.5 TABLET PO (16:51)
[2018-11-02] MEDS: Carvedilol 6.25 MG Tablet PO (16:52)
[2018-11-02] MEDS: Acetaminophen 500 MG Tablet 1000 MG PO (22:46)
--- NOTE | 2018-11-03 00:30 | NURSING ---
Personal alarm going off X2 RN entered room to find pt crawling out of bed without calling for assistance. Side rails noted to be up X2, bed in low position, call light within reach. Pt informed staff she has abd pain because she is going septic from a urinary tract infection. No distress noted. Pt perviously provided Tylenol for headache. Pt informed staff we needed to call her spouse because he is a doctor and knows what to do. This nurse explained to patient there are proper protocols we have to follow and certain doctors we are able to take orders from. Pt responded, Fine. Call, Dr Bullard. This nurse explained to pt an order has to be given to consult certain doctors. Pt yelled, Call the doctor oncology coordinator! Call the doctor oncology coordinator! Nurse asked pt to explain what the oncology coordinator doctor needs to address. Pt then immediately demanded staff show her, her chart. Pt stated, I know how to read charts. Show me my chart! this nurse explained to patient it is illegal to read your own chart without going through the proper protocol. Pt being very irrational and uncooperative with staff. Pt assisted to restroom voided 25ml, bladder scan 123ml. Pt assisted back to bed. Pt reported being comfortable, call light within reach, and denied any further needs to DIETETICS DIRECTOR at time. Dr Cortes notified orders entered.
--- NOTE | 2018-11-03 01:34 | NURSING ---
Pt straight cathed per orders, after two attempts d/t bearing down and clenching legs together. Pt wanted staff to 'forget it and get out'. Prior to obtaining specimen, pt said just give me some strong painkillers' When asked what medication she was asking for pt said 'whatever strong painkiller this hospital uses'. Stated tylenol did nothing to help pain. Encouraged pt to relax, she was unable to, requiring two attempts at cath. When staff exiting room pt said don't forget my is a doctor. I know how to get ahold of him. And I know how to make a racket. Remember that.' Pt was repositioned for comfort and encouraged to rest, call if staff assistance needed. RN present/aware. Continuing to monitor.
[2018-11-03 01:45] LABS: Mucous, Urine 0 SEEN /hpf (<or=2+); Red Blood Cells-Urine 0 SEEN /hpf (0-5); Squamous Epithelial Cells - UA 0 SEEN /hpf (5-10)
[2018-11-03 01:56] LABS: Color, Urine Yellow (Yellow); Glucose, Dipstick Normal (Normal); Ketone-Dipstick 5 mg/dl (Negative); Leukocyte Esterase-Dipstick 25 /ul (Negative); Nitrite-Dipstick Positive (Negative); Occult Blood-Urine 25 /ul (Negative); Protein-Dipstick Negative (Negative); Urine Bilirubin Dipstick Negative (Negative); Urine Clarity Sl. Cloudy (Clear); Urine Urobilinogen Normal (Normal)
[2018-11-03 02:02] LABS: Bacteria 4+ /hpf (None Seen); White Blood Cells 0-5 SEEN /hpf (0-5)
[2018-11-03] MEDS: Ciprofloxacin 250 MG Tablet PO ×3 (02:04→17:40)
[2018-11-03] MEDS: Polyethylene Glycol 3350 17 GM PACKET PO (06:30)
[2018-11-03] MEDS: Carvedilol 6.25 MG Tablet PO ×2 (06:32→17:40)
[2018-11-03] MEDS: Amiodarone 200 MG Tablet PO (06:32)
[2018-11-03] MEDS: Cyanocobalamin 500 MCG Tablet 1000 MCG PO (06:32)
[2018-11-03 06:44] LABS: Absolute Lymphocyte Count 1.32 X10^3/ul (0.83-4.51); Absolute Neutrophil Count 2.8 X10^3/uL (2.0-7.7); Basophil# 0.06 X10^3/uL; Basophil% 1.2 % (0-1); Eosinophil# 0.16 X10^3/uL; Eosinophils% 3.2 % (0-5); Hematocrit 37.4 % (37-47); Hemoglobin 12.5 g/dl (12.0-15.0); Lymphocyte # 1.32 X10^3/ul (4.0); Lymphocyte % 26.8 % (19-41); Mean Corp Hgb Conc 33.4 g/gl (32-36); Mean Corpuscular Hgb 33.1 pg (27.0-32.0); Mean Corpuscular Volume 98.9 fL (81-99); Mean Platelet Vol. 11.2 fl (6.2-12.0); Monocyte# 0.57 X10^3/uL; Monocyte% 11.6 % (0-10); Neutrophil # 2.81 X10^3/uL (2.7-7.7); Platelet Count 192 K/mm3 (150-450); RBC Distribution Width CV 14.5 % (11.6-14.6); RBC Distribution Width SD 51.2 fl (35.1-43.9); Red Blood Count 3.78 M/mm3 (4.2-5.4); White Blood Count 4.9 K/mm3 (4.4-11.0)
[2018-11-03 06:47] LABS: POSITIVE COUNT NO; POSITIVE DIFFERENTIAL NO; POSITIVE MORPHOLOGY NO
[2018-11-03 06:59] LABS: Anion Gap 9 (5-15); BUN 14 mg/dL (7-18); BUN/Creat Ratio 10.9 RATIO (10-20); Calcium,Total 8.3 mg/dL (8.5-10.1); Chloride 115 mmol/L (98-107); Creatinine, Serum 1.29 mg/dL (0.55-1.02); EST Glomerular Filtration Rate 42 mL/min (>60); Est Glom Filt Rate - Afr Amer 51 mL/min (>60); Estimated Creatinine Clearance 24.57 ml/min; Glucose 103 mg/dL (74-106); Potassium 3.9 mmol/L (3.5-5.1); Sodium Level 146 mmol/L (136-145)
[2018-11-03] MEDS: Calcium Carb/Vitamin D 1 TABLET Tablet 0.5 TABLET PO ×3 (08:03→17:39)
--- NOTE | 2018-11-03 08:13 | RAD_ITS ---
STUDY: X-RAY - ABDOMEN/PELVIS REASON FOR EXAM: Female, 83 years old. Abdominal pain. TECHNIQUE: Two AP supine views of the abdomen and pelvis. COMPARISON: CT of the abdomen and pelvis dated August 13, 2018. FINDINGS: The cardiac silhouette is enlarged. Bronchovascular markings are mildly prominent. There is an unremarkable bowel gas pattern. There is no demonstrated free abdominal air. There is no obvious organomegaly, mass, or dilated bowel. Calcification in the left pelvis may represent retained contrast in a diverticulum. Normal soft tissue structures. There is mild curvature of the lumbar spine with convexity towards the left. There are degenerative changes at both hips. RAD/Abdomen Single View (Portable) IMPRESSION: No radiographic evidence of acute intra-abdominal disease. Electronically Signed: Angela Spaulding MD at 11:44 EST , Service support ,
--- NOTE | 2018-11-03 08:45 | NURSING ---
NO for ABD xray for c/o abd pain.
--- NOTE | 2018-11-03 11:08 | PCM.PN.RX ---
<Sloan Salgado D - Last Filed: 11/03/18 11:08> Progress Note - Pharmacy Subjective: TCU Admission Objective: Allergies Penicillins [PCN] Allergy (Verified 10/31/18 12:09) Rash Current Medications Generic Name Dose Route Start Last Admin Trade Name Freq PRN Reason Stop Dose Admin Acetaminophen 1,000 mg 11/02/18 15:42 11/02/18 22:46 Tylenol PO 1,000 mg Q6H PRN PRN Administration MILD PAIN (1-310) Amiodarone HCl 200 mg 11/03/18 06:00 11/03/18 06:32 Cordarone PO 200 mg DAILY YARY Administration Bisacodyl 10 mg 11/02/18 15:35 Dulcolax PO DAILY PRN PRN Constipation Calcium/Vitamin D 0.5 tablet 11/02/18 17:45 11/03/18 08:03 Os-Raymond 500mg + D PO 0.5 tablet TIDCM YARY Administration Carvedilol 6.25 mg 11/02/18 18:00 11/03/18 06:32 Coreg PO 6.25 mg BID YARY Administration Cholecalciferol 2,000 unit 11/03/18 06:00 11/03/18 06:31 Vitamin D PO 2,000 unit DAILY YARY Administration Ciprofloxacin HCl 250 mg 11/03/18 06:00 11/03/18 06:32 Cipro PO 11/13/18 06:01 250 mg BID YARY Administration Cyanocobalamin 1,000 mcg 11/03/18 06:00 11/03/18 06:32 Vitamin B12 PO 1,000 mcg DAILY YARY Administration Nutritional Formula (Lactose Free) 120 ml 11/02/18 17:00 11/03/18 06:30 Ensure Enlive PO 120 ml 4X/DAY YARY Administration Paroxetine HCl 10 mg 11/03/18 22:00 Paxil PO QHS [facility] Polyethylene Glycol 17 gm 11/03/18 06:00 11/03/18 06:30 Miralax PO 17 gm DAILY YARY Administration Tuberculin PPD 5 tu 11/10/18 10:00 Tubersol, Aplisol, Ppd ID 11/10/18 10:01 X1 ONE Warfarin Sodium 1.25 mg 11/03/18 17:00 Coumadin (Pbkc) PO DAILY@1700 [facility] Protocol Problem List (Last Updated 10/31/18 @ 14:51 by Jose Radford MD) Weakness (Acute) Confusion (Acute) Expressive aphasia (Acute) Atrial fibrillation (Chronic) Vital Signs Temp Pulse Resp BP Pulse Ox 98.3 F 59 L 18 122/54 H 91 11/02/18 16:00 11/02/18 16:00 11/02/18 16:00 11/02/18 16:00 11/02/18 16:00 Oxygen Delivery Method Room Air Weight: 61.689 kg Body Mass Index (BMI) 26.5 Sodium 146 mmol/L (136-145) H 11/03/18 06:28 Potassium 3.9 mmol/L (3.5-5.1) 11/03/18 06:28 Chloride 115 mmol/L (98-107) H 11/03/18 06:28 Carbon Dioxide 22.0 mmol/L (21.0-32.0) 11/03/18 06:28 Anion Gap 9 (5-15) 11/03/18 06:28 BUN 14 mg/dL (7-18) 11/03/18 06:28 Creatinine 1.29 mg/dL (0.55-1.02) H 11/03/18 06:28 Est GFR (MDRD) Af Amer 51 mL/min (>60) L 11/03/18 06:28 Est GFR (MDRD) Non-Af 42 mL/min (>60) L 11/03/18 06:28 BUN/Creatinine Ratio 10.9 RATIO (10-20) 11/03/18 06:28 Glucose 103 mg/dL (74-106) 11/03/18 06:28 Assessment/Plan: 1) Pain APAP for mild pain. Continue to monitor prn medication use, daily pain scores. 2) Afib Carvedilol, amiodarone, warfarin. Continue to monitor BP/HR, PT/INR, s/s bleeding. 3) ID Ciprofloxacin twice daily until 11/13. Continue to monitor renal function, s/s infection, culture results. * Considering patient's age, renal function, and possibly of ADR with more drug exposure - if for treatment of UTI consider shorter duration such as 3-5 days if uncomplicated. 4) Nutrition Ensure, B12, D, Ca/D. Continue to monitor clinically. Psychotropic Medications: 5) Depression Paroxetine daily. Continue to monitor s/s depression. Unnecessary Medications: None Bowel Regimen: 6) PEG, prn bisacodyl. Continue to monitor prn medication use, for constipation/diarrhea. Date of Note:: 11/03/18 - Provider Comments Provider responsibility: Provider responsible to enter orders to implement recommendations <Karl Cortes Chi - Last Filed: 11/03/18 17:49> Progress Note - Pharmacy Subjective: [] Objective: Allergies Penicillins [PCN] Allergy (Verified 10/31/18 12:09) Rash Current Medications Generic Name Dose Route Start Last Admin Trade Name Freq PRN Reason Stop Dose Admin Acetaminophen 1,000 mg 11/02/18 15:42 11/02/18 22:46 Tylenol PO 1,000 mg Q6H PRN PRN Administration MILD PAIN (1-01/09) Amiodarone HCl 200 mg 11/03/18 06:00 11/03/18 06:32 Cordarone PO 200 mg DAILY YARY Administration Bisacodyl 10 mg 11/02/18 15:35 Dulcolax PO DAILY PRN PRN Constipation Calcium/Vitamin D 0.5 tablet 11/02/18 17:45 11/03/18 17:39 Os-Raymond 500mg + D PO 0.5 tablet TIDCM YARY Administration Carvedilol 6.25 mg 11/02/18 18:00 11/03/18 17:40 Coreg PO 6.25 mg BID YARY Administration Cholecalciferol 2,000 unit 11/03/18 06:00 11/03/18 06:31 Vitamin D PO 2,000 unit DAILY YARY Administration Ciprofloxacin HCl 250 mg 11/03/18 06:00 11/03/18 17:40 Cipro PO 11/13/18 06:01 250 mg BID YARY Administration Cyanocobalamin 1,000 mcg 11/03/18 06:00 11/03/18 06:32 Vitamin B12 PO 1,000 mcg DAILY YARY Administration Nutritional Formula (Lactose Free) 120 ml 11/02/18 17:00 11/03/18 17:46 Ensure Enlive PO Not Given 4X/DAY YARY Paroxetine HCl 10 mg 11/03/18 22:00 Paxil PO QHS YARY Polyethylene Glycol 17 gm 11/03/18 06:00 11/03/18 06:30 Miralax PO 17 gm DAILY YARY Administration Tuberculin PPD 5 tu 11/10/18 10:00 Tubersol, Aplisol, Ppd ID 11/10/18 10:01 X1 ONE Warfarin Sodium 1.25 mg 11/03/18 17:00 11/03/18 17:38 Coumadin (Pbkc) PO 1.25 mg DAILY@1700 [facility] Administration Protocol Problem List (Last Updated 10/31/18 @ 14:51 by Jose Radford MD) Weakness (Acute) Confusion (Acute) Expressive aphasia (Acute) Atrial fibrillation (Chronic) Vital Signs Temp Pulse Resp BP Pulse Ox 97.5 F L 52 L 14 136/98 H 98 11/03/18 15:47 11/03/18 15:47 11/03/18 15:47 11/03/18 15:47 11/03/18 15:47 Oxygen Delivery Method Room Air Weight: 61.689 kg Body Mass Index (BMI) 26.5 Sodium 146 mmol/L (136-145) H 11/03/18 06:28 Potassium 3.9 mmol/L (3.5-5.1) 11/03/18 06:28 Chloride 115 mmol/L (98-107) H 11/03/18 06:28 Carbon Dioxide 22.0 mmol/L (21.0-32.0) 11/03/18 06:28 Anion Gap 9 (5-15) 11/03/18 06:28 BUN 14 mg/dL (7-18) 11/03/18 06:28 Creatinine 1.29 mg/dL (0.55-1.02) H 11/03/18 06:28 Est GFR (MDRD) Af Amer 51 mL/min (>60) L 11/03/18 06:28 Est GFR (MDRD) Non-Af 42 mL/min (>60) L 11/03/18 06:28 BUN/Creatinine Ratio 10.9 RATIO (10-20) 11/03/18 06:28 Glucose 103 mg/dL (74-106) 11/03/18 06:28 Assessment/Plan: Psychotropic Medications: Unnecessary Medications: Bowel Regimen: - Provider Comments Provider responsibility: Provider responsible to enter orders to implement recommendations Provider Comments to Recommendations by Pharmacy: Agree
--- NOTE | 2018-11-03 11:21 | PHA.CONS_ITS ---
<Sloan Salgado D - Last Filed: 11/03/18 11:08> Progress Note - Pharmacy Subjective: TCU Admission Objective: Allergies Penicillins [PCN] Allergy (Verified 10/31/18 12:09) Rash Current Medications Generic Name Dose Route Start Last Admin Trade Name Freq PRN Reason Stop Dose Admin Acetaminophen 1,000 mg 11/02/18 15:42 11/02/18 22:46 Tylenol PO 1,000 mg Q6H PRN PRN Administration MILD PAIN (1-310) Amiodarone HCl 200 mg 11/03/18 06:00 11/03/18 06:32 Cordarone PO 200 mg DAILY AYRY Administration Bisacodyl 10 mg 11/02/18 15:35 Dulcolax PO DAILY PRN PRN Constipation Calcium/Vitamin D 0.5 tablet 11/02/18 17:45 11/03/18 08:03 Os-Raymond 500mg + D PO 0.5 tablet TIDCM YARY Administration Carvedilol 6.25 mg 11/02/18 18:00 11/03/18 06:32 Coreg PO 6.25 mg BID YARY Administration Cholecalciferol 2,000 unit 11/03/18 06:00 11/03/18 06:31 Vitamin D PO 2,000 unit DAILY YARY Administration Ciprofloxacin HCl 250 mg 11/03/18 06:00 11/03/18 06:32 Cipro PO 11/13/18 06:01 250 mg BID YARY Administration Cyanocobalamin 1,000 mcg 11/03/18 06:00 11/03/18 06:32 Vitamin B12 PO 1,000 mcg DAILY YARY Administration Nutritional Formula (Lactose Free) 120 ml 11/02/18 17:00 11/03/18 06:30 Ensure Enlive PO 120 ml 4X/DAY YARY Administration Paroxetine HCl 10 mg 11/03/18 22:00 Paxil PO QHS [facility] Polyethylene Glycol 17 gm 11/03/18 06:00 11/03/18 06:30 Miralax PO 17 gm DAILY YARY Administration Tuberculin PPD 5 tu 11/10/18 10:00 Tubersol, Aplisol, Ppd ID 11/10/18 10:01 X1 ONE Warfarin Sodium 1.25 mg 11/03/18 17:00 Coumadin (Pbkc) PO DAILY@1700 [facility] Protocol Problem List (Last Updated 10/31/18 @ 14:51 by Jose Radford MD) Weakness (Acute) Confusion (Acute) Expressive aphasia (Acute) Atrial fibrillation (Chronic) Vital Signs Temp Pulse Resp BP Pulse Ox 98.3 F 59 L 18 122/54 H 91 11/02/18 16:00 11/02/18 16:00 11/02/18 16:00 11/02/18 16:00 11/02/18 16:00 Oxygen Delivery Method Room Air Weight: 61.689 kg Body Mass Index (BMI) 26.5 Sodium 146 mmol/L (136-145) H 11/03/18 06:28 Potassium 3.9 mmol/L (3.5-5.1) 11/03/18 06:28 Chloride 115 mmol/L (98-107) H 11/03/18 06:28 Carbon Dioxide 22.0 mmol/L (21.0-32.0) 11/03/18 06:28 Anion Gap 9 (5-15) 11/03/18 06:28 BUN 14 mg/dL (7-18) 11/03/18 06:28 Creatinine 1.29 mg/dL (0.55-1.02) H 11/03/18 06:28 Est GFR (MDRD) Af Amer 51 mL/min (>60) L 11/03/18 06:28 Est GFR (MDRD) Non-Af 42 mL/min (>60) L 11/03/18 06:28 BUN/Creatinine Ratio 10.9 RATIO (10-20) 11/03/18 06:28 Glucose 103 mg/dL (74-106) 11/03/18 06:28 Assessment/Plan: 1) Pain APAP for mild pain. Continue to monitor prn medication use, daily pain scores. 2) Afib Carvedilol, amiodarone, warfarin. Continue to monitor BP/HR, PT/INR, s/s bleeding. 3) ID Ciprofloxacin twice daily until 11/13. Continue to monitor renal function, s/s infection, culture results. * Considering patient's age, renal function, and possibly of ADR with more drug exposure - if for treatment of UTI consider shorter duration such as 3-5 days if uncomplicated. 4) Nutrition Ensure, B12, D, Ca/D. Continue to monitor clinically. Psychotropic Medications: 5) Depression Paroxetine daily. Continue to monitor s/s depression. Unnecessary Medications: None Bowel Regimen: 6) PEG, prn bisacodyl. Continue to monitor prn medication use, for constipation/diarrhea. Date of Note:: 11/03/18 - Provider Comments Provider responsibility: Provider responsible to enter orders to implement re commendations <Karl Cortes Chi - Last Filed: 11/03/18 17:49> Progress Note - Pharmacy Subjective: [] Objective: Allergies Penicillins [PCN] Allergy (Verified 10/31/18 12:09) Rash Current Medications Generic Name Dose Route Start Last Admin Trade Name Freq PRN Reason Stop Dose Admin Acetaminophen 1,000 mg 11/02/18 15:42 11/02/18 22:46 Tylenol PO 1,000 mg Q6H PRN PRN Administration MILD PAIN (1-01/09) Amiodarone HCl 200 mg 11/03/18 06:00 11/03/18 06:32 Cordarone PO 200 mg DAILY YARY Administration Bisacodyl 10 mg 11/02/18 15:35 Dulcolax PO DAILY PRN PRN Constipation Calcium/Vitamin D 0.5 tablet 11/02/18 17:45 11/03/18 17:39 Os-Raymond 500mg + D PO 0.5 tablet TIDCM YARY Administration Carvedilol 6.25 mg 11/02/18 18:00 11/03/18 17:40 Coreg PO 6.25 mg BID YARY Administration Cholecalciferol 2,000 unit 11/03/18 06:00 11/03/18 06:31 Vitamin D PO 2,000 unit DAILY YARY Administration Ciprofloxacin HCl 250 mg 11/03/18 06:00 11/03/18 17:40 Cipro PO 11/13/18 06:01 250 mg BID YARY Administration Cyanocobalamin 1,000 mcg 11/03/18 06:00 11/03/18 06:32 Vitamin B12 PO 1,000 mcg DAILY YARY Administration Nutritional Formula (Lactose Free) 120 ml 11/02/18 17:00 11/03/18 17:46 Ensure Enlive PO Not Given 4X/DAY YARY Paroxetine HCl 10 mg 11/03/18 22:00 Paxil PO QHS YARY Polyethylene Glycol 17 gm 11/03/18 06:00 11/03/18 06:30 Miralax PO 17 gm DAILY YARY Administration Tuberculin PPD 5 tu 11/10/18 10:00 Tubersol, Aplisol, Ppd ID 11/10/18 10:01 X1 ONE Warfarin Sodium 1.25 mg 11/03/18 17:00 11/03/18 17:38 Coumadin (Pbkc) PO 1.25 mg DAILY@1700 [facility] Administration Protocol Problem List (Last Updated 10/31/18 @ 14:51 by Jose Radford MD) Weakness (Acute) Confusion (Acute) Expressive aphasia (Acute) Atrial fibrillation (Chronic) Vital Signs Temp Pulse Resp BP Pulse Ox 97.5 F L 52 L 14 136/98 H 98 11/03/18 15:47 11/03/18 15:47 11/03/18 15:47 11/03/18 15:47 11/03/18 15:47 Oxygen Delivery Method Room Air Weight: 61.689 kg Body Mass Index (BMI) 26.5 Sodium 146 mmol/L (136-145) H 11/03/18 06:28 Potassium 3.9 mmol/L (3.5-5.1) 11/03/18 06:28 Chloride 115 mmol/L (98-107) H 11/03/18 06:28 Carbon Dioxide 22.0 mmol/L (21.0-32.0) 11/03/18 06:28 Anion Gap 9 (5-15) 11/03/18 06:28 BUN 14 mg/dL (7-18) 11/03/18 06:28 Creatinine 1.29 mg/dL (0.55-1.02) H 11/03/18 06:28 Est GFR (MDRD) Af Amer 51 mL/min (>60) L 11/03/18 06:28 Est GFR (MDRD) Non-Af 42 mL/min (>60) L 11/03/18 06:28 BUN/Creatinine Ratio 10.9 RATIO (10-20) 11/03/18 06:28 Glucose 103 mg/dL (74-106) 11/03/18 06:28 Assessment/Plan: Psychotropic Medications: Unnecessary Medications: Bowel Regimen: - Provider Comments Provider responsibility: Provider responsible to enter orders to implement recommendations Provider Comments to Recommendations by Pharmacy: Agree
[2018-11-03] MEDS: Tuberculin,Purif.prot.deriv. 50 TU/ML Vial 5 ML ID (11:51)
[2018-11-03 15:47] VITALS: BP 136/98; PULSE 52; RESP 14; TEMP 36.4; O2SAT 98
--- NOTE | 2018-11-03 18:11 | NURSING ---
NO for cipro 250mg PO BID x 7 days.
--- NOTE | 2018-11-03 18:44 | NURSING ---
Code status discussed with patient and . Patient would like to remain a full code at this time.
--- NOTE | 2018-11-03 18:53 | NURSING ---
Pt has c/o urethral pain r/t being SC for UA sample. Dr. Cortes notified. NO for pyridium daily x 3 days.
[2018-11-03] MEDS: Acetaminophen 500 MG Tablet 1000 MG PO (18:56)
[2018-11-03] MEDS: Phenazopyridine 95 MG Tablet PO (20:35)
[2018-11-03] MEDS: PARoxetine 10 MG Tablet PO (20:36)
[2018-11-03 20:40] VITALS: PULSE 72; RESP 18; O2SAT 96
[2018-11-04] MEDS: Carvedilol 6.25 MG Tablet PO ×2 (05:14→17:05)
[2018-11-04] MEDS: Amiodarone 200 MG Tablet PO (05:14)
[2018-11-04] MEDS: Ciprofloxacin 250 MG Tablet PO ×2 (05:14→17:05)
[2018-11-04] MEDS: Cyanocobalamin 500 MCG Tablet 1000 MCG PO (05:14)
[2018-11-04] MEDS: Phenazopyridine 95 MG Tablet PO (05:15)
[2018-11-04 06:25] LABS: International Normalized Ratio 1.8; Prothrombin Time (Protime)PT. 20.5 SECONDS (11.7-14.9)
[2018-11-04] MEDS: Calcium Carb/Vitamin D 1 TABLET Tablet 0.5 TABLET PO ×3 (07:45→17:06)
[2018-11-04] MEDS: Aspirin E.C. 81 MG Tablet PO (07:45)
[2018-11-04] MEDS: Acetaminophen 500 MG Tablet 1000 MG PO ×2 (07:48→20:01)
[2018-11-04 15:52] VITALS: BP 124/58; PULSE 70; RESP 18; TEMP 36.8; O2SAT 94
[2018-11-04 20:00] VITALS: PULSE 68; RESP 16; O2SAT 94
[2018-11-04] MEDS: PARoxetine 10 MG Tablet PO (20:02)
[2018-11-05] MEDS: Amiodarone 200 MG Tablet PO (06:07)
[2018-11-05] MEDS: Ciprofloxacin 250 MG Tablet PO ×2 (06:07→16:35)
[2018-11-05] MEDS: Phenazopyridine 95 MG Tablet PO (06:07)
[2018-11-05] MEDS: Carvedilol 6.25 MG Tablet PO ×2 (06:08→16:35)
[2018-11-05] MEDS: Cyanocobalamin 500 MCG Tablet 1000 MCG PO (06:08)
[2018-11-05] MEDS: Acetaminophen 500 MG Tablet 1000 MG PO ×3 (07:11→23:59)
[2018-11-05] MEDS: Calcium Carb/Vitamin D 1 TABLET Tablet 0.5 TABLET PO ×3 (07:38→16:35)
[2018-11-05] MEDS: Aspirin E.C. 81 MG Tablet PO (07:39)
[2018-11-05 09:55] VITALS: PULSE 51; RESP 16; O2SAT 97
[2018-11-05 15:58] VITALS: BP 145/58; PULSE 54; RESP 16; TEMP 36.4; O2SAT 95
[2018-11-05] MEDS: PARoxetine 10 MG Tablet PO (21:10)
--- NOTE | 2018-11-05 21:12 | NURSING ---
in visiting with pt, very pleasant. Pt stated she didn't know what was going on or what was expected of her. Easily redirected with 1:1. pleased with care. Removed pt hearing aids and took home with him to replace batteries. RN aware, continuing to monitor.
[2018-11-06] MEDS: Amiodarone 200 MG Tablet PO (04:53)
[2018-11-06] MEDS: Carvedilol 6.25 MG Tablet PO ×2 (04:53→17:14)
[2018-11-06] MEDS: Cyanocobalamin 500 MCG Tablet 1000 MCG PO (04:54)
[2018-11-06] MEDS: Ciprofloxacin 250 MG Tablet PO ×2 (04:54→17:13)
[2018-11-06] MEDS: Aspirin E.C. 81 MG Tablet PO (07:49)
[2018-11-06] MEDS: Calcium Carb/Vitamin D 1 TABLET Tablet 0.5 TABLET PO ×3 (07:49→17:13)
[2018-11-06 10:30] VITALS: PULSE 49; RESP 18; O2SAT 99
[2018-11-06] MEDS: Acetaminophen 500 MG Tablet 1000 MG PO ×2 (11:07→20:13)
[2018-11-06 16:00] VITALS: BP 130/57; PULSE 58; RESP 14; TEMP 36.7; O2SAT 96
[2018-11-06] MEDS: PARoxetine 10 MG Tablet PO (20:13)
[2018-11-07] MEDS: Carvedilol 6.25 MG Tablet PO ×2 (05:33→17:11)
[2018-11-07] MEDS: Ciprofloxacin 250 MG Tablet PO ×2 (05:33→17:11)
[2018-11-07] MEDS: Amiodarone 200 MG Tablet PO (05:33)
[2018-11-07] MEDS: Cyanocobalamin 500 MCG Tablet 1000 MCG PO (05:33)
[2018-11-07] MEDS: Acetaminophen 500 MG Tablet 1000 MG PO ×2 (07:26→14:30)
[2018-11-07] MEDS: Aspirin E.C. 81 MG Tablet PO (07:46)
[2018-11-07] MEDS: Calcium Carb/Vitamin D 1 TABLET Tablet 0.5 TABLET PO ×3 (07:46→17:12)
[2018-11-07 15:14] VITALS: BP 145/51; PULSE 54; RESP 14; TEMP 36.4; O2SAT 93
[2018-11-07] MEDS: PARoxetine 10 MG Tablet PO (19:33)
[2018-11-07 20:55] VITALS: PULSE 51; RESP 16; O2SAT 95
[2018-11-08] MEDS: Acetaminophen 500 MG Tablet 1000 MG PO (01:34)
[2018-11-08] MEDS: Amiodarone 200 MG Tablet PO (05:54)
[2018-11-08] MEDS: Cyanocobalamin 500 MCG Tablet 1000 MCG PO (05:54)
[2018-11-08] MEDS: Ciprofloxacin 250 MG Tablet PO ×2 (05:54→18:10)
[2018-11-08] MEDS: Carvedilol 6.25 MG Tablet PO ×2 (05:54→18:10)
[2018-11-08 07:17] LABS: International Normalized Ratio 1.8; Prothrombin Time (Protime)PT. 20.8 SECONDS (11.7-14.9)
[2018-11-08] MEDS: Calcium Carb/Vitamin D 1 TABLET Tablet 0.5 TABLET PO ×3 (07:57→18:10)
[2018-11-08] MEDS: Aspirin E.C. 81 MG Tablet PO (07:57)
[2018-11-08 10:00] VITALS: PULSE 55; RESP 16; O2SAT 96
[2018-11-08 15:38] VITALS: BP 131/49; PULSE 52; RESP 16; TEMP 35.8; O2SAT 97
[2018-11-08] MEDS: PARoxetine 10 MG Tablet PO (19:53)
[2018-11-09] MEDS: Acetaminophen 500 MG Tablet 1000 MG PO ×4 (03:38→22:35)
[2018-11-09] MEDS: Polyethylene Glycol 3350 17 GM PACKET PO (05:27)
[2018-11-09] MEDS: Ciprofloxacin 250 MG Tablet PO ×2 (05:28→16:29)
[2018-11-09] MEDS: Amiodarone 200 MG Tablet PO (05:28)
[2018-11-09] MEDS: Carvedilol 6.25 MG Tablet PO ×2 (05:28→16:28)
[2018-11-09] MEDS: Cyanocobalamin 500 MCG Tablet 1000 MCG PO (05:29)
[2018-11-09] MEDS: Aspirin E.C. 81 MG Tablet PO (07:41)
[2018-11-09] MEDS: Calcium Carb/Vitamin D 1 TABLET Tablet 0.5 TABLET PO ×3 (08:55→16:27)
--- NOTE | 2018-11-09 09:57 | NURSING ---
PT COMPLAINT OF PRESSURE AND SINUS TROUBLE. TALKED TO AND STATED SHE WAS ON A NOSE SPRAY AT HOME. REPORTED TO JEANE.LIZANDRO.
--- NOTE | 2018-11-09 15:28 | CASEMGMT ---
Brief interview for mental status (BIMS) and resident mood interview (PHQ-9) completed on this day. BIMS score 10/15. PHQ-9 score 01/26
[2018-11-09 15:31] VITALS: BP 152/61; PULSE 55; RESP 16; TEMP 36.5; O2SAT 96
[2018-11-09] MEDS: Bisacodyl 5 MG Tablet 10 MG PO (16:26)
[2018-11-09 20:03] VITALS: PULSE 77; RESP 18; O2SAT 94
[2018-11-09] MEDS: PARoxetine 10 MG Tablet PO (20:12)
[2018-11-10] MEDS: Acetaminophen 500 MG Tablet 1000 MG PO ×2 (04:36→21:15)
[2018-11-10] MEDS: Carvedilol 6.25 MG Tablet PO ×2 (04:37→17:53)
[2018-11-10] MEDS: Cyanocobalamin 500 MCG Tablet 1000 MCG PO (04:37)
[2018-11-10] MEDS: Ciprofloxacin 250 MG Tablet PO (04:38)
[2018-11-10] MEDS: Amiodarone 200 MG Tablet PO (04:39)
[2018-11-10 06:14] LABS: Absolute Neutrophil Count 2.3 X10^3/uL (2.0-7.7); Basophil# 0.05 X10^3/uL; Basophil% 1.1 % (0-1); Eosinophil# 0.13 X10^3/uL; Eosinophils% 2.9 % (0-5); Hematocrit 40.1 % (37-47); Hemoglobin 12.8 g/dl (12.0-15.0); Lymphocyte % 26.8 % (19-41); Mean Corp Hgb Conc 31.9 g/gl (32-36); Mean Corpuscular Hgb 31.9 pg (27.0-32.0); Mean Platelet Vol. 11.1 fl (6.2-12.0); Monocyte# 0.74 X10^3/uL; Monocyte% 16.6 % (0-10); Neutrophil # 2.34 X10^3/uL (2.7-7.7); Neutrophil % 52.4 % (47-70); Platelet Count 207 K/mm3 (150-450); RBC Distribution Width SD 54.8 fl (35.1-43.9); Red Blood Count 4.01 M/mm3 (4.2-5.4); White Blood Count 4.5 K/mm3 (4.4-11.0)
--- NOTE | 2018-11-10 06:22 | NURSING ---
Five episodes of loose stool between 0400 and 0500. Pt compliant with using call light and waiting for staff assist. Given tylenol per request throughout night as orders allow; effective. Once back in bed after 5th BM, no further issues and pt has been resting since, appears comfortable. RN aware, continuing to monitor.
[2018-11-10 06:24] LABS: POSITIVE COUNT NO; POSITIVE DIFFERENTIAL NO; POSITIVE MORPHOLOGY NO
[2018-11-10 06:29] LABS: Anion Gap 8 (5-15); BUN 20 mg/dL (7-18); BUN/Creat Ratio 15.5 RATIO (10-20); Calcium,Total 8.8 mg/dL (8.5-10.1); Chloride 109 mmol/L (98-107); Creatinine, Serum 1.29 mg/dL (0.55-1.02); EST Glomerular Filtration Rate 42 mL/min (>60); Est Glom Filt Rate - Afr Amer 51 mL/min (>60); Estimated Creatinine Clearance 24.57 ml/min; Glucose 92 mg/dL (74-106); Potassium 3.5 mmol/L (3.5-5.1); Sodium Level 144 mmol/L (136-145)
[2018-11-10] MEDS: Aspirin E.C. 81 MG Tablet PO (07:49)
[2018-11-10] MEDS: Calcium Carb/Vitamin D 1 TABLET Tablet 0.5 TABLET PO ×3 (07:50→17:51)
--- NOTE | 2018-11-10 10:07 | CASEMGMT ---
Plan of care meeting held. Resident present as well as resident spouse. No discharge date set at this time. Resident to continue with further care and treatment on the Transitional Care Unit. Resident plans to discharge to home with spouse at time of discharge. Collaborating on options to assist resident and resident spouse within the home. Team broaching topic of private duty home care, resident spouse declining information at this time. Support given. Will continue to follow. 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
[2018-11-10] MEDS: Tuberculin,Purif.prot.deriv. 50 TU/ML Vial 5 ML ID (10:38)
[2018-11-10 15:25] VITALS: BP 139/54; PULSE 52; RESP 18; TEMP 36.7; O2SAT 92
[2018-11-10 17:56] VITALS: PULSE 57
[2018-11-10] MEDS: PARoxetine 10 MG Tablet PO (21:14)
[2018-11-10 21:20] VITALS: PULSE 58; RESP 16; O2SAT 98
[2018-11-11] MEDS: Carvedilol 6.25 MG Tablet PO ×2 (05:50→17:35)
[2018-11-11] MEDS: Cyanocobalamin 500 MCG Tablet 1000 MCG PO (05:50)
[2018-11-11] MEDS: Amiodarone 200 MG Tablet PO (05:50)
[2018-11-11 06:18] LABS: International Normalized Ratio 1.9; Prothrombin Time (Protime)PT. 21.4 SECONDS (11.7-14.9)
[2018-11-11] MEDS: Aspirin E.C. 81 MG Tablet PO (08:04)
[2018-11-11] MEDS: Calcium Carb/Vitamin D 1 TABLET Tablet 0.5 TABLET PO ×3 (08:04→17:35)
[2018-11-11 10:00] VITALS: PULSE 59; RESP 16; O2SAT 98
[2018-11-11 15:15] VITALS: BP 133/54; PULSE 62; RESP 16; TEMP 36.4; O2SAT 92
[2018-11-11] MEDS: PARoxetine 10 MG Tablet PO (20:51)
[2018-11-12] MEDS: Cyanocobalamin 500 MCG Tablet 1000 MCG PO (05:55)
[2018-11-12] MEDS: Amiodarone 200 MG Tablet PO (05:55)
[2018-11-12] MEDS: Carvedilol 6.25 MG Tablet PO ×2 (05:55→17:42)
[2018-11-12] MEDS: Calcium Carb/Vitamin D 1 TABLET Tablet 0.5 TABLET PO ×3 (07:58→17:42)
[2018-11-12] MEDS: Aspirin E.C. 81 MG Tablet PO (07:58)
[2018-11-12 16:00] VITALS: BP 133/58; PULSE 58; RESP 18; TEMP 36.7; O2SAT 93
[2018-11-12] MEDS: PARoxetine 10 MG Tablet PO (19:56)
[2018-11-12] MEDS: Acetaminophen 500 MG Tablet 1000 MG PO (21:22)
[2018-11-12 21:25] VITALS: PULSE 56; RESP 16; O2SAT 96
[2018-11-13] MEDS: Polyethylene Glycol 3350 17 GM PACKET PO (05:33)
[2018-11-13] MEDS: Amiodarone 200 MG Tablet PO (05:33)
[2018-11-13] MEDS: Cyanocobalamin 500 MCG Tablet 1000 MCG PO (05:33)
[2018-11-13] MEDS: Carvedilol 6.25 MG Tablet PO ×2 (05:33→17:47)
[2018-11-13] MEDS: Acetaminophen 500 MG Tablet 1000 MG PO ×3 (07:18→20:30)
[2018-11-13] MEDS: Calcium Carb/Vitamin D 1 TABLET Tablet 0.5 TABLET PO ×3 (07:54→17:47)
[2018-11-13] MEDS: Aspirin E.C. 81 MG Tablet PO (07:54)
[2018-11-13 10:00] VITALS: PULSE 50; O2SAT 95
[2018-11-13 15:25] VITALS: BP 133/56; PULSE 60; RESP 18; TEMP 36.7; O2SAT 93
--- NOTE | 2018-11-13 17:42 | NURSING ---
Pt given 1000mg dose of PRN tylenol at 1107. Dr. Cortes and patient's made aware.
[2018-11-13] MEDS: PARoxetine 10 MG Tablet PO (20:30)
[2018-11-14] MEDS: Acetaminophen 500 MG Tablet 1000 MG PO ×3 (05:35→21:24)
[2018-11-14] MEDS: Amiodarone 200 MG Tablet PO (05:35)
[2018-11-14] MEDS: Carvedilol 6.25 MG Tablet PO ×2 (05:35→17:56)
[2018-11-14] MEDS: Cyanocobalamin 500 MCG Tablet 1000 MCG PO (05:36)
[2018-11-14] MEDS: Aspirin E.C. 81 MG Tablet PO (07:47)
[2018-11-14] MEDS: Calcium Carb/Vitamin D 1 TABLET Tablet 0.5 TABLET PO ×3 (07:48→17:56)
[2018-11-14 10:00] VITALS: PULSE 80; O2SAT 99
[2018-11-14] MEDS: Fluticasone 0.05% 1 SPRAY NASAL.SRY NASAL ×2 (12:08→21:24)
[2018-11-14] MEDS: Azelastine HCl NASAL.SRY 1 SPRAY NASAL ×2 (12:09→21:23)
--- NOTE | 2018-11-14 14:49 | NURSING ---
Pt has c/o constant, dull headache. Tylenol and PRN flonase/astelin only mildly effective, pain level still 5/[address] Cortes updated. NO for CT of the head without contrast. Patient and made aware.
[2018-11-14 15:24] VITALS: BP 141/77; PULSE 55; RESP 18; TEMP 36.4; O2SAT 97
[2018-11-14] MEDS: PARoxetine 10 MG Tablet PO (21:24)
[2018-11-15] MEDS: Cyanocobalamin 500 MCG Tablet 1000 MCG PO (06:15)
[2018-11-15] MEDS: Amiodarone 200 MG Tablet PO (06:15)
[2018-11-15] MEDS: Carvedilol 6.25 MG Tablet PO ×2 (06:15→17:07)
[2018-11-15] MEDS: Acetaminophen 500 MG Tablet 1000 MG PO (06:15)
[2018-11-15] MEDS: Azelastine HCl NASAL.SRY 1 SPRAY NASAL ×2 (06:16→19:43)
[2018-11-15] MEDS: Fluticasone 0.05% 1 SPRAY NASAL.SRY NASAL ×2 (06:16→19:47)
[2018-11-15 06:21] LABS: International Normalized Ratio 2.4; Prothrombin Time (Protime)PT. 25.9 SECONDS (11.7-14.9)
[2018-11-15] MEDS: Calcium Carb/Vitamin D 1 TABLET Tablet 0.5 TABLET PO ×3 (07:47→17:07)
[2018-11-15] MEDS: Aspirin E.C. 81 MG Tablet PO (07:49)
--- NOTE | 2018-11-15 14:00 | MDS.RN ---
Information for the mds was obtained from review of the clinical record, interview of resident, staff, and direct observation of resident's care.
[2018-11-15 15:32] VITALS: BP 152/59; PULSE 62; RESP 18; TEMP 36.7; O2SAT 96
[2018-11-15] MEDS: PARoxetine 10 MG Tablet PO (19:43)
[2018-11-15 20:00] VITALS: PULSE 56; RESP 16; O2SAT 99
[2018-11-16] MEDS: Carvedilol 6.25 MG Tablet PO ×2 (04:59→17:08)
[2018-11-16] MEDS: Amiodarone 200 MG Tablet PO (04:59)
[2018-11-16] MEDS: Cyanocobalamin 500 MCG Tablet 1000 MCG PO (04:59)
--- NOTE | 2018-11-16 05:05 | NURSING ---
PATIENT DRESSED AND READY TO GO HOME. COMPLAINING OF RECTAL DISCOMFORT FROM FREQUENT BM'S. NO LOOSE STOOLS OBSERVED. PATIENT FLUSHES TOILET BEFORE STAFF CAN OBSERVE. THIS NURSE HAS GIVEN ICE PACK TO BOTTOM AND TRIED WARM BLANKET. PATIENT WAS OFFERED AND REFUSED TYLENOL. THAT WON'T HELP. PATIENT UPSET THAT STAFF PAID MORE ATTENTION TO MY THAN ME YESTERDAY. GIVEN ONE ON ONE WITH SOME EFFECT. DOES NOT APPEAR IN DISTRESS. WILL CONT TO MONITOR. REPORTED TO SHANNON RN AND LIZANDRO FOLEY.
[2018-11-16] MEDS: Azelastine HCl NASAL.SRY 1 SPRAY NASAL ×2 (07:43→19:48)
[2018-11-16] MEDS: Fluticasone 0.05% 1 SPRAY NASAL.SRY NASAL ×2 (07:43→19:50)
[2018-11-16] MEDS: Calcium Carb/Vitamin D 1 TABLET Tablet 0.5 TABLET PO ×2 (07:44→17:06)
[2018-11-16] MEDS: Aspirin E.C. 81 MG Tablet PO (07:44)
[2018-11-16] MEDS: Acetaminophen 500 MG Tablet 1000 MG PO ×2 (07:46→16:08)
--- NOTE | 2018-11-16 09:37 | CASEMGMT ---
Brief interview for mental status (BIMS) and resident mood interview (PHQ-9) completed on this day. BIMS score 03/16. PHQ-9 score 03/28
--- NOTE | 2018-11-16 12:56 | RAD_ITS ---
STUDY: X-RAY CHEST REASON FOR EXAM: Female, 83 years old. Chest pain TECHNIQUE: Single AP portable view of the chest. COMPARISON: Previous study of 10/31/2018 FINDINGS: The lungs are clear and expanded. There is no demonstrated pleural abnormality. Normal size heart. Normal mediastinum and adithya. Normal visualized pulmonary arteries. There are calcified plaques of the aortic arch. Normal visualized thoracic spine. Normal visualized ribs, clavicles, and shoulders. There is no demonstrated abnormality of the visualized soft tissue structures of the upper abdomen. RAD/Chest 1 View IMPRESSION: Calcified plaques of the aortic arch. No acute cardiopulmonary disease process is seen. Electronically Signed: Donato Culp MD at 18:07 EST , Service support ,
--- NOTE | 2018-11-16 12:56 | RAD_ITS ---
STUDY: X-RAY - ABDOMEN/PELVIS REASON FOR EXAM: Female, 83 years old. Abdominal pain and back discomfort TECHNIQUE: Two AP supine views of the abdomen and pelvis. COMPARISON: Prior study of April 23, 2019 FINDINGS: Normal visualized lung bases. There is an unremarkable bowel gas pattern. There is no demonstrated free abdominal air. The visualized liver, spleen and kidneys are grossly normal in size and morphology. Normal soft tissue structures. There are diffuse degenerative changes of the visualized thoracolumbar spine. There is a mild thoracolumbar dextroscoliosis. RAD/Abdomen Single View IMPRESSION: There is no evidence of ileus or obstruction. The bowel gas pattern is unremarkable. Degenerative changes of the visualized thoracolumbar spine. Mild thoracolumbar dextroscoliosis. Electronically Signed: Donato Culp MD at 18:08 EST , Service support ,
[2018-11-16 13:05] VITALS: PULSE 54; RESP 18
[2018-11-16 13:27] LABS: Absolute Lymphocyte Count 0.86 X10^3/ul (0.83-4.51); Absolute Neutrophil Count 3.4 X10^3/uL (2.0-7.7); Basophil# 0.03 X10^3/uL; Basophil% 0.6 % (0-1); Eosinophil# 0.09 X10^3/uL; Eosinophils% 1.9 % (0-5); Hematocrit 38.8 % (37-47); Hemoglobin 12.5 g/dl (12.0-15.0); Lymphocyte # 0.86 X10^3/ul (4.0); Lymphocyte % 17.7 % (19-41); Mean Corp Hgb Conc 32.2 g/gl (32-36); Mean Corpuscular Hgb 32.2 pg (27.0-32.0); Mean Platelet Vol. 10.8 fl (6.2-12.0); Monocyte# 0.43 X10^3/uL; Monocyte% 8.8 % (0-10); Neutrophil # 3.44 X10^3/uL (2.7-7.7); Neutrophil % 70.8 % (47-70); Platelet Count 208 K/mm3 (150-450); RBC Distribution Width CV 15.1 % (11.6-14.6); RBC Distribution Width SD 55.1 fl (35.1-43.9); Red Blood Count 3.88 M/mm3 (4.2-5.4); White Blood Count 4.9 K/mm3 (4.4-11.0)
[2018-11-16 13:29] LABS: POSITIVE COUNT NO; POSITIVE DIFFERENTIAL NO; POSITIVE MORPHOLOGY NO
[2018-11-16 13:56] LABS: Anion Gap 7 (5-15); BUN 15 mg/dL (7-18); BUN/Creat Ratio 11.2 RATIO (10-20); Calcium,Total 8.7 mg/dL (8.5-10.1); Chloride 109 mmol/L (98-107); Creatinine, Serum 1.34 mg/dL (0.55-1.02); EST Glomerular Filtration Rate 40 mL/min (>60); Est Glom Filt Rate - Afr Amer 49 mL/min (>60); Estimated Creatinine Clearance 23.65 ml/min; Glucose 117 mg/dL (74-106); Potassium 3.8 mmol/L (3.5-5.1); Sodium Level 142 mmol/L (136-145)
[2018-11-16 15:48] VITALS: BP 144/62; PULSE 60; RESP 16; TEMP 36.4; O2SAT 95
[2018-11-16] MEDS: PARoxetine 10 MG Tablet PO (19:47)
[2018-11-17 06:05] LABS: Absolute Lymphocyte Count 1.11 X10^3/ul (0.83-4.51); Absolute Neutrophil Count 1.8 X10^3/uL (2.0-7.7); Basophil# 0.06 X10^3/uL; Basophil% 1.6 % (0-1); Eosinophil# 0.15 X10^3/uL; Eosinophils% 4.1 % (0-5); Hematocrit 37.6 % (37-47); Hemoglobin 12.4 g/dl (12.0-15.0); Lymphocyte # 1.11 X10^3/ul (4.0); Lymphocyte % 30.5 % (19-41); Mean Corpuscular Hgb 33.1 pg (27.0-32.0); Mean Corpuscular Volume 100.3 fL (81-99); Mean Platelet Vol. 11.4 fl (6.2-12.0); Monocyte# 0.52 X10^3/uL; Monocyte% 14.3 % (0-10); Neutrophil % 49.5 % (47-70); Platelet Count 197 K/mm3 (150-450); RBC Distribution Width CV 15.2 % (11.6-14.6); RBC Distribution Width SD 54.6 fl (35.1-43.9); Red Blood Count 3.75 M/mm3 (4.2-5.4); White Blood Count 3.6 K/mm3 (4.4-11.0)
[2018-11-17 06:18] LABS: POSITIVE COUNT NO; POSITIVE DIFFERENTIAL NO; POSITIVE MORPHOLOGY NO
[2018-11-17 06:20] LABS: Anion Gap 9 (5-15); BUN 14 mg/dL (7-18); BUN/Creat Ratio 11.3 RATIO (10-20); Calcium,Total 8.5 mg/dL (8.5-10.1); Chloride 112 mmol/L (98-107); Creatinine, Serum 1.24 mg/dL (0.55-1.02); EST Glomerular Filtration Rate 44 mL/min (>60); Est Glom Filt Rate - Afr Amer 53 mL/min (>60); Estimated Creatinine Clearance 25.56 ml/min; Glucose 92 mg/dL (74-106); Potassium 3.6 mmol/L (3.5-5.1); Sodium Level 145 mmol/L (136-145)
[2018-11-17] MEDS: Amiodarone 200 MG Tablet PO (06:43)
[2018-11-17] MEDS: Cyanocobalamin 500 MCG Tablet 1000 MCG PO (06:43)
[2018-11-17] MEDS: Carvedilol 6.25 MG Tablet PO ×2 (06:43→17:03)
[2018-11-17] MEDS: Azelastine HCl NASAL.SRY 1 SPRAY NASAL ×2 (06:44→20:54)
[2018-11-17] MEDS: Fluticasone 0.05% 1 SPRAY NASAL.SRY NASAL ×2 (06:46→20:54)
--- NOTE | 2018-11-17 07:02 | NURSING ---
STRAIGHT CATH URINE SPEC OBTAINED PER ORDER. 240 CC CLEAR CARLTON URINE OBTAINED. PATIENT TOLERATED PROCEDURE WELL. WILL CONT TO MONITOR. PATIENT DENIES ANY BURNING OR FREQ AT THIS TIME. NURSES LIZANDRO HUFFMAN AND LIZANDRO FOLEY AWARE.
[2018-11-17] MEDS: Acetaminophen 500 MG Tablet 1000 MG PO ×2 (07:10→22:46)
[2018-11-17 07:11] LABS: Bacteria 0 SEEN /hpf (None Seen); Mucous, Urine 0 SEEN /hpf (<or=2+); Red Blood Cells-Urine 0 SEEN /hpf (0-5); White Blood Cells 0 SEEN /hpf (0-5)
--- NOTE | 2018-11-17 07:43 | NURSING ---
GIVEN SSE THIS AM AFTER PATIENT TEACHING IMPORTANCE FOR SAME AND WHY DR ORDERED PROCEDURE. PATIENT TOLERATED SSE WELL. ASSISTED TO BATHROOM AND RETURNED BROWNISH LIQ STOOL WITH MED FORMED SOFT BROWN STOOL. WILL CONT TO MONITOR. NIGHT NURSES LIZANDRO HUFFMAN AND LIZANDRO FOLEY AWARE AND DAY NURSES LIZANDRO CHING AND ERIKA MICHAUD ALSO NOTIFIED.
[2018-11-17] MEDS: Calcium Carb/Vitamin D 1 TABLET Tablet 0.5 TABLET PO ×3 (07:56→17:05)
[2018-11-17] MEDS: Aspirin E.C. 81 MG Tablet PO (07:58)
[2018-11-17 08:01] LABS: Color, Urine Yellow (Yellow); Glucose, Dipstick Normal (Normal); Ketone-Dipstick Negative (Negative); Leukocyte Esterase-Dipstick Negative /ul (Negative); Nitrite-Dipstick Negative (Negative); Occult Blood-Urine Negative /ul (Negative); Protein-Dipstick Negative (Negative); Specific Gravity, Urine 1.025 (1.002-1.030); Urine Bilirubin Dipstick Negative (Negative); Urine Clarity Sl. Cloudy (Clear); Urine Urobilinogen Normal (Normal)
[2018-11-17 08:07] LABS: Squamous Epithelial Cells - UA 0-5 SEEN /hpf (5-10)
[2018-11-17 10:00] VITALS: PULSE 58; RESP 18
[2018-11-17 15:37] VITALS: BP 114/51; PULSE 52; RESP 16; TEMP 36.6; O2SAT 92
[2018-11-17] MEDS: PARoxetine 10 MG Tablet PO (20:54)
[2018-11-17 20:58] VITALS: PULSE 72; RESP 18
--- NOTE | 2018-11-17 23:36 | NURSING ---
Pt insisting staff has A&D ointment 'laying around' and is refusing to allow pt to use. Explained the need for an order and pharmacy. Pt said she does not believe this because she is to a doctor and 'at any other hospital all you have to have is a little bit of pain and they give me morphine or demerol or whatever I want and you won't give me a little bit of A&D. I will be writing plenty of letters I can tell you that. I have had this rectal pain for several nights now. Told pt this was not passed on during report, documented, or even mentioned by pt herself until now. Pt said that should not matter. RNs on duty aware, continuing to monitor. Pt assisted back into bed after using bathroom and appears comfortable.
[2018-11-18 05:48] LABS: International Normalized Ratio 2.6; Prothrombin Time (Protime)PT. 28.1 SECONDS (11.7-14.9)
[2018-11-18] MEDS: Cyanocobalamin 500 MCG Tablet 1000 MCG PO (06:06)
[2018-11-18] MEDS: Carvedilol 6.25 MG Tablet PO ×2 (06:06→17:10)
[2018-11-18] MEDS: Amiodarone 200 MG Tablet PO (06:06)
[2018-11-18] MEDS: Fluticasone 0.05% 1 SPRAY NASAL.SRY NASAL (06:06)
[2018-11-18] MEDS: Azelastine HCl NASAL.SRY 1 SPRAY NASAL (06:07)
[2018-11-18] MEDS: Calcium Carb/Vitamin D 1 TABLET Tablet 0.5 TABLET PO ×3 (07:47→17:10)
[2018-11-18] MEDS: Acetaminophen 500 MG Tablet 1000 MG PO ×2 (07:47→17:09)
[2018-11-18] MEDS: Aspirin E.C. 81 MG Tablet PO (07:47)
[2018-11-18 10:30] VITALS: PULSE 56; RESP 18; O2SAT 97
--- NOTE | 2018-11-18 10:49 | NURSING ---
THIS NURSE NOTICED BLOOD ON BACK OF PT SHIRT. PT HAS A OPEN SCRATCH ON RIGHT SIDE. ASKED PT WHAT HAPPENED AND PT STATED SHE DID NOT KNOW. IN ROOM STATED SHE SCRATCHES HER SELF SOME TIMES ON THE BACK AND ARMS. REPORTED TO LIZANDRO NIEVES
[2018-11-18 15:13] VITALS: BP 143/53; PULSE 52; RESP 16; TEMP 36.9; O2SAT 98
--- NOTE | 2018-11-18 15:34 | NURSING ---
PT RECTAL AND SKIN AROUND IT IS BRIGHT RED AND PT STATED IT HURTS. N.O FOR A&D WAS GIVEN.
[2018-11-18] MEDS: Vitamins A and D Ointment 1 APPLIC TOPICAL ×2 (17:08→21:38)
[2018-11-18] MEDS: PARoxetine 10 MG Tablet PO (19:55)
[2018-11-19] MEDS: Fluticasone 0.05% 1 SPRAY NASAL.SRY NASAL (01:16)
[2018-11-19] MEDS: Acetaminophen 500 MG Tablet 1000 MG PO (01:18)
[2018-11-19] MEDS: Amiodarone 200 MG Tablet PO (05:18)
[2018-11-19] MEDS: Carvedilol 6.25 MG Tablet PO (05:18)
[2018-11-19] MEDS: Cyanocobalamin 500 MCG Tablet 1000 MCG PO (05:18)
[2018-11-19] MEDS: Calcium Carb/Vitamin D 1 TABLET Tablet 0.5 TABLET PO ×2 (08:02→11:48)
[2018-11-19] MEDS: Aspirin E.C. 81 MG Tablet PO (08:02)
--- NOTE | 2018-11-19 10:20 | CASEMGMT ---
Social Work Spoke with resident and resident spouse. Resident spouse requesting for resident to discharge today, 11/19/18 to home with spouse. Team is agreeable to discharge date and recommending for resident to continue with physical therapy within the home. Resident spouse is declining to have home health care at this time. Resident spouse also asking this social work specialist about assisted livings in the area in the event that resident spouse is unable to meet resident needs within the home. This social work specialist providing resident spouse with list of assisted livings as well has how to start the process. Resident spouse plans to provide transportation to home for resident at time of discharge. Resident/resident spouse reporting to have all needed durable medical equipment already set up within the home. Support given. Proposed discharge date: 11/19/18 PLAN: Discharge to home with spouse. CYNTHIA Nair
[2018-11-19 13:14] VITALS: PULSE 53; RESP 18; O2SAT 94
--- NOTE | 2018-11-19 13:49 | PCM.DC ---
- Discharge Diagnoses Current Active Problems: Current Active and Chronic Problems (Last Updated 10/31/18 @ 14:51 by Jose Radford MD) Weakness (Acute) Confusion (Acute) Expressive aphasia (Acute) Atrial fibrillation (Chronic) You will use the following diet at home:: No restrictions, Regular Your food should be the consistency of: Regular Your liquids should be the consistency of: Regular/Thin Discharge Activity: Return to Normal Activity, May Shower, Use Walker Weight Bearing Status: Weight bearing as tolerated Call your doctor if you observe: Fever of 101 or Higher, Inability to urinate, Inability to have a bowel movement, Shortness of breath, Chest pain, Uncontrolled pain Allergies/Adverse Reactions: Allergies Penicillins [PCN] Allergy (Verified 10/31/18 12:09) Rash Medications to take at Discharge Calcium Citrate/Vitamin D3 [Calcium Citrate - Vit D Caplet] 315 ea PO TIDCM 01/05/17 Carvedilol [Coreg (Beta Kori)] 6.25 mg PO BID 01/05/17 Cholecalciferol (Vitamin D3) [Vitamin D3] 2,000 unit PO DAILY 01/05/17 Paroxetine Mesylate [Brisdelle] 7.5 mg PO QHS 01/05/17 psyllium husk (with sugar) 3.4 gram/12 gram oral powder 2 tsp PO DAILY g 03/05/18 warfarin 2.5 mg tablet 1.25 mg PO DAILY 03/31/18 Amiodarone HCl [Cordarone] 200 mg PO DAILY 10/06/18 Aspirin E.C. [Ecotrin] 81 mg PO DAILY 10/06/18 Dymista 1 puff NASAL BID PRN PRN 10/06/18 Cyanocobalamin (Vitamin B-12) [B-12] 1,000 mcg PO DAILY 11/02/18 Acetaminophen [Tylenol] 1,000 mg PO Q6H PRN PRN tablet 11/19/18 Aspirin E.C. [Ecotrin] 81 mg PO DAILY@0800 tablet 11/19/18 Azelastine HCl [Astelin] 1 spray NASAL BID PRN nasal.sry 11/19/18 Fluticasone 0.05% [Flonase Nasal [place]] 1 spray NASAL BID PRN #1 nasal.sry 11/19/18 Polyethylene Glycol 3350 [Miralax] 17 gm PO DAILY PRN PRN packet 11/19/18 Vitamin A and D [A & D] 1 applic TOPICAL BID PRN PRN tube 11/19/18 The following prescriptions were given: Fluticasone 0.05% [Flonase Nasal [place]] 1 spray NASAL BID PRN #1 nasal.sry PRN Reason: RUNNY NOSE Orders to be completed after discharge: Prothrombin Time w/INR Time Frame: 3 Days, Location: Laboratory Primary Care Physician: Ben Loomis MD [Primary Care Provider] - Please follow up with your Primary Care Physician in: 1 week. Test Results: Test results from this visit will be discussed in further detail at your follow-up appointment, if applicable. Proposed Discharge Date: 11/19/18
[2018-11-19 13:50] VITALS: BP 151/68; PULSE 55; RESP 16; TEMP 36.4; O2SAT 99
--- NOTE | 2018-11-19 13:50 | PCM.DC.SUM ---
Discharge Date and Diagnosis - Problem List Patient Problems: Active and Suspected Problems (Last Updated 10/31/18 @ 14:51 by Jose Radford MD) Weakness (Acute) Confusion (Acute) Expressive aphasia (Acute) Date of Admission: 11/02/18 Date of Discharge: 11/19/18 - Primary Discharge Diagnosis Active and Suspected Problems (Last Updated 10/31/18 @ 14:51 by Jose Radford MD) Weakness (Acute) Confusion (Acute) Expressive aphasia (Acute) - Secondary Discharge Diagnosis Chronic Problems (Last Updated 10/31/18 @ 14:51 by Jose Radford MD) Atrial fibrillation (Chronic) History of breast cancer (Chronic) History of right mastectomy (Chronic) Aphasia (Chronic) 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) last ECHO with a 25% EF Secondary pulmonary arterial hypertension (Chronic) Nonrheumatic aortic valve insufficiency (Chronic) Nonrheumatic mitral (valve) insufficiency (Chronic) Non-rheumatic tricuspid valve insufficiency (Chronic) Paroxysmal atrial fibrillation (Chronic) Chronic systolic (congestive) heart failure (Chronic) Abnormal CT of the chest (Chronic) MCC (current) use of anticoagulants (Chronic) Hypertension (Chronic) Central sleep apnea (Chronic) Hospital Course and Treatment Imaging Results: 11/03/18 18:48 Diet: Regular Diet Is pt able to select menu?: No Clinical Impression(s) from Imaging Studies Chest X-Ray 11/16/18 12:56 IMPRESSION: Calcified plaques of the aortic arch. No acute cardiopulmonary disease process is seen. Electronically Signed: Donato Culp MD at 18:07 EST , Service support , KUB X-Ray 11/16/18 12:56 IMPRESSION: There is no evidence of ileus or obstruction. The bowel gas pattern is unremarkable. Degenerative changes of the visualized thoracolumbar spine. Mild thoracolumbar dextroscoliosis. Electronically Signed: Donato Culp MD at 18:08 EST , Service support , Labs (Last 48 Hours) 11/18/18 05:05 PT 28.1 H INR 2.6 Microbiology 11/17/18 07:00 Urine Catheter - Catheter Urine Culture - Final Staphylococcus simulans Operations: None Procedures: None Summary of Care Provided: The patient is a 83 year old Female with below past medical history hospitalized for weakness, expressive aphasia, complicated by underlying dementia, admitted to TCU with debility, here for rehabilitation, strengthening, prior to disposition determination. Discharge home with spouse. Patient Problems: Active and Suspected Problems (Last Updated 10/31/18 @ 14:51 by Jose Radford MD) Weakness (Acute) Confusion (Acute) Expressive aphasia (Acute) - Physical Exam Vital Signs Temp Pulse Resp BP Pulse Ox 98.4 F 53 L 18 143/53 H 94 11/18/18 15:13 11/19/18 13:14 11/19/18 13:14 11/18/18 15:13 11/19/18 13:14 Oxygen Delivery Method Room Air Weight: 62.369 kg Body Mass Index (BMI) 26.5 Intake and Output for Last 24 Hours 11/17/18 11/18/18 11/19/18 23:59 23:59 23:59 Intake Total 600 / 600 880 / 880 420 / 420 Output Total 240 / 240 Balance 360 / 360 880 / 880 420 / 420 Microbiology Past 72 Hours 11/17/18 07:00 Urine Culture - Final Urine Catheter - Catheter Staphylococcus simulans Discharge Diet: No Restrictions Discharge Activity: Return to Normal Activity, May Shower, Use Walker Weight Bearing Status: Weight bearing as tolerated Call your doctor if you observe: Fever of 101 or Higher, Inability to urinate, Inability to have a bowel movement, Shortness of breath, Chest pain, Uncontrolled pain Home Medications: Medications to take at Discharge Calcium Citrate/Vitamin D3 [Calcium Citrate - Vit D Caplet] 315 ea PO TIDCM 01/05/17 Carvedilol [Coreg (Beta Kori)] 6.25 mg PO BID 01/05/17 Cholecalciferol (Vitamin D3) [Vitamin D3] 2,000 unit PO DAILY 01/05/17 Paroxetine Mesylate [Brisdelle] 7.5 mg PO QHS 01/05/17 psyllium husk (with sugar) 3.4 gram/12 gram oral powder 2 tsp PO DAILY g 03/05/18 warfarin 2.5 mg tablet 1.25 mg PO DAILY 03/31/18 Amiodarone HCl [Cordarone] 200 mg PO DAILY 10/06/18 Aspirin E.C. [Ecotrin] 81 mg PO DAILY 10/06/18 Dymista 1 puff NASAL BID PRN PRN 10/06/18 Cyanocobalamin (Vitamin B-12) [B-12] 1,000 mcg PO DAILY 11/02/18 Acetaminophen [Tylenol] 1,000 mg PO Q6H PRN PRN tablet 11/19/18 Aspirin E.C. [Ecotrin] 81 mg PO DAILY@0800 tablet 11/19/18 Azelastine HCl [Astelin] 1 spray NASAL BID PRN nasal.sry 11/19/18 Fluticasone 0.05% [Flonase Nasal [place]] 1 spray NASAL BID PRN #1 nasal.sry 11/19/18 Polyethylene Glycol 3350 [Miralax] 17 gm PO DAILY PRN PRN packet 11/19/18 Vitamin A and D [A & D] 1 applic TOPICAL BID PRN PRN tube 11/19/18 Following Prescrptions Were Given to Patient: Fluticasone 0.05% [Flonase Nasal [place]] 1 spray NASAL BID PRN #1 nasal.sry PRN Reason: RUNNY NOSE Other Amb Orders: Prothrombin Time w/INR Time Frame: 3 Days, Location: Laboratory Primary Care Physician: Ben Loomis MD [Primary Care Provider] - Please follow up with your Primary Care Physician in: 1 week. Disposition: Home Minutes spent on discharge:: 30 Patient Condition:: Stable Medical Necessity - Tobacco Use Smoking Status: Never smoker Tobacco Use: Non-smoker Meaningful Use Info Meaningful Use Diagnoses (Choose all that apply): None applicable
== END 2018-11-19 15:55 | disposition home or self-care (01) | DRG 948 ==
PROVIDERS: Admitting Provider Family Medicine Geriatric Medicine; Family Provider Internal Medicine; PCP Internal Medicine; Referring Provider Family Medicine Geriatric Medicine; Visit Provider Family Medicine Geriatric Medicine
DX: R53.81 Other malaise (principal); I50.22 Chronic systolic (congestive) heart failure; R47.01 Aphasia; G47.31 Primary central sleep apnea; I11.0 Hypertensive heart disease with heart failure; I48.0 Paroxysmal atrial fibrillation; I48.2 Chronic atrial fibrillation; I27.21 Secondary pulmonary arterial hypertension; Z85.3 Personal history of malignant neoplasm of breast; F32.9 Major depressive disorder, single episode, unspecified; F03.90 Unspecified dementia, unspecified severity, without behavioral disturbance, psychotic disturbance, mood disturbance, and anxiety; R30.0 Dysuria
CPT/HCPCS: 36415; 71045; 74018; 80048; 81001; 85025; 85610; 87077; 87086; 87088; 87186; 92507; 92523; 97110; 97116; 97163; 97166; 97530; 97533; 97535; 97802

== ENCOUNTER → 2018-11-14 14:58 | Outpatient (CLI) | payer MEDICARE, OTHER, SELFPAY ==
[2018-11-02 13:49] VITALS: BMI 26.5
--- NOTE | 2018-11-14 15:04 | CT_ITS ---
STUDY: CT BRAIN WITHOUT CONTRAST REASON FOR EXAM: Female, 83 years old. Frequent frontal headaches. No history of trauma. History of breast cancer. RADIATION DOSAGE (If Supplied By Facility): CTDIvol = ( 44.99 ) mGy, DLP = ( 745.49 ) mGycm TECHNIQUE: Transaxial CT imaging of the brain was performed without administration of intravenous contrast material. Individualized dose optimization techniques were used for this CT. COMPARISON: October 24, 2018. MRI brain October 25, 2018. FINDINGS: Normal soft tissue structures. Normal calvarium. Normal size ventricles and extra-axial spaces for the patient's age. Normal white matter tracts of the cerebral hemispheres. Old lacunar infarction right lentiform nucleus and right thalamus unchanged. Normal brainstem. Normal cerebellum. There is no intracranial hemorrhage. There are no findings of an acute ischemic infarction. Normal visualized paranasal sinuses. CT/Brain/Head without Contrast IMPRESSION: Stable head CT, no acute intracranial abnormality. 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 Otherwise normal for age. No evidence of metastatic disease. Electronically Signed: Francisco Jennings MD at 4:14 EST , Service support ,
== END ==
PROVIDERS: Family Provider Internal Medicine; PCP Internal Medicine; Visit Provider Family Medicine Geriatric Medicine
DX: R51 Headache (principal)
CPT/HCPCS: 70450

== ENCOUNTER 2018-12-20 15:35 | Outpatient (RCR) | payer MEDICARE, OTHER, SELFPAY ==
[2018-07-23 11:24] VITALS: BMI 25.9
[2018-11-23 15:21] VITALS: BMI 25.9
[2018-12-20 15:56] LABS: Prothrombin Time Fingerstick 29.9 SEC (11.9-14.4)
== END 2018-12-30 14:05 | disposition home or self-care (01) ==
LOC: LAB 15:35
PROVIDERS: Family Provider Internal Medicine; PCP Internal Medicine; Referring Provider Internal Medicine Cardiovascular Disease; Visit Provider Internal Medicine Cardiovascular Disease
DX: I48.91 Unspecified atrial fibrillation (principal); Z79.01 Long term (current) use of anticoagulants
CPT/HCPCS: 36416; 85610

== ENCOUNTER 2019-02-08 12:28 | Outpatient (RCR) | payer MEDICARE, OTHER, SELFPAY ==
[2018-11-23 15:21] VITALS: BMI 25.9
[2019-02-08 12:50] LABS: Prothrombin Time Fingerstick 19.2 SEC (11.9-14.4)
== END 2019-03-01 16:00 | disposition home or self-care (01) ==
LOC: LAB 12:28
PROVIDERS: Family Provider Internal Medicine; PCP Internal Medicine; Referring Provider Internal Medicine Cardiovascular Disease; Visit Provider Internal Medicine Cardiovascular Disease
DX: I48.91 Unspecified atrial fibrillation (principal); Z79.01 Long term (current) use of anticoagulants
CPT/HCPCS: 36416; 85610

== ENCOUNTER → 2019-02-08 | Outpatient (CLI) | payer MEDICARE, OTHER, SELFPAY ==
[2018-11-23 15:21] VITALS: BMI 25.9
--- NOTE | 2019-02-08 12:48 | ECHOD_ITS ---
Version 2 Reason For Study: Afib/Flutter Procedure This was a 2D Doppler, Color Flow transthoracic echocardiogram. Myocardial strain analysis was performed in this exam to aid in the assessment of cardiac function. Exam performed in department. Left Ventricle Normal left ventricle. The estimated ejection fraction is 25 %. Severe global left ventricular systolic dysfunction. Stage 2 diastolic dysfunction. There is severe global hypokinesis of the left ventricle. Right Ventricle Normal RV size. Normal systolic function. Atria Normal left atrium. Normal right atrium. Mitral Valve Mild diffuse mitral valve thickening. Mild (1+) eccentric mitral valve insufficiency. Tricuspid Valve Normal tricuspid valve. Mild to moderate (1-2+) tricuspid valve insufficiency. Pulmonary artery systolic pressure is 50 mmHg. Moderate pulmonary hypertension. Aortic Valve Trisinus/trileaflet aortic valve. Mild (1+) aortic valve insufficiency. Pulmonic Valve Normal pulmonic valve. Great Vessels Normal aortic root. The pulmonary artery is normal size. Normal inferior vena cava. Pericardium/Pleural No pericardial effusion. MMode/2D Measurements & Calculations LVIDd: 5.3 cm IVSd: 1.4 cm Ao root diam: 3.7 cm LVIDs: 4.2 cm LVPWd: 0.92 cm LA dimension: 3.8 cm RVDd: 4.0 cm FS: 20.4 % LAV(MOD-bp): 55.9 ml LA A4 area: 19.4 cm2 RA A4 area: 16.9 cm2 LAV(MOD-bp) Indexed: 34.3 ml/m2 LAV(MOD-sp2): 52.0 ml LAV(MOD-sp4): 58.5 ml Time Measurements MV dec time: 0.22 sec Doppler Measurements & Calculations MV E max eliel: 100.3 cm/sec Med Peak E' Eliel: 3.7 cm/sec MV V2 max: 96.5 cm/sec MV A max eliel: 69.6 cm/sec E/E' med: 27.1 MV max P.7 mmHg MV E/A: 1.4 MV V2 mean: 48.1 cm/sec MV mean P.1 mmHg MV V2 VTI: 35.3 cm MV P1/2t max eliel: 96.5 cm/sec Ao V2 max: 131.1 cm/sec AI max eliel: 421.0 cm/sec MV P1/2t: 125.5 msec Ao max P.9 mmHg AI max P.9 mmHg MV dec slope: 225.3 cm/sec2 AI dec slope: 220.0 cm/sec2 MVA(P1/2t): 1.8 cm2 AI P1/2t: 560.6 msec LV V1 max: 83.5 cm/sec MR max eliel: 513.4 cm/sec PA V2 max: 87.4 cm/sec LV V1 max P.8 mmHg MR max P.4 mmHg MR mean eliel: 369.3 cm/sec MR mean P.2 mmHg MR VTI: 218.1 cm TR max eliel: 336.2 cm/sec TR max P.2 mmHg Interpretation Summary Normal left ventricle. The estimated ejection fraction is 25 %. Severe global left ventricular systolic dysfunction. Stage 2 diastolic dysfunction. Mild (1+) eccentric mitral valve insufficiency. Mild to moderate (1-2+) tricuspid valve insufficiency. Moderate pulmonary hypertension. Mild (1+) aortic valve insufficiency. Compared to prior study, there is no significant change. The global longitudinal strain = -11.9% (abnormal). Ordering Physician: Juan Miguel^Gary^^^ Referring Physician: Gary Bullard Performed By: Demarco Nielsen RCS
== END | disposition home or self-care (01) ==
LOC: CVS 12:47
PROVIDERS: Family Provider Internal Medicine; PCP Internal Medicine; Referring Provider Internal Medicine Cardiovascular Disease; Visit Provider Internal Medicine Cardiovascular Disease
DX: R47.01 Aphasia (principal); I48.91 Unspecified atrial fibrillation; Z79.01 Long term (current) use of anticoagulants
CPT/HCPCS: 36416; 85610; 93306

== ENCOUNTER → 2019-03-21 15:33 | Outpatient (CLI) | payer MEDICARE, OTHER, SELFPAY ==
[2019-03-21 15:33] VITALS: BMI 26.2
[2019-03-21 15:51] LABS: Prothrombin Time Fingerstick 18.9 SEC (11.9-14.4)
[2019-03-21 18:00] LABS: Anion Gap 5 (5-15); BUN 24 mg/dL (7-18); BUN/Creat Ratio 14.7 RATIO (10-20); Calcium,Total 8.9 mg/dL (8.5-10.1); Chloride 110 mmol/L (98-107); Creatinine, Serum 1.63 mg/dL (0.55-1.02); EST Glomerular Filtration Rate 32 mL/min (>60); Est Glom Filt Rate - Afr Amer 39 mL/min (>60); Glucose 102 mg/dL (74-106); Potassium 4.7 mmol/L (3.5-5.1); Sodium Level 143 mmol/L (136-145)
== END ==
PROVIDERS: Family Provider Internal Medicine; PCP Internal Medicine; Referring Provider Internal Medicine Cardiovascular Disease; Visit Provider Internal Medicine Cardiovascular Disease
DX: I50.22 Chronic systolic (congestive) heart failure (principal)
CPT/HCPCS: 36415; 36416; 80048; 85610

== ENCOUNTER 2019-03-30 12:23 | Outpatient (RCR) | payer MEDICARE, OTHER, SELFPAY ==
[2019-03-02 12:25] VITALS: BMI 25.9
[2019-03-04 16:31] LABS: Prothrombin Time Fingerstick 18.5 SEC (11.9-14.4)
[2019-03-14 15:50] LABS: Prothrombin Time Fingerstick 21.9 SEC (11.9-14.4)
[2019-03-30 12:46] LABS: Prothrombin Time Fingerstick 17.4 SEC (11.9-14.4)
== END 2019-03-30 13:00 | disposition home or self-care (01) ==
LOC: LAB 12:23
PROVIDERS: Family Provider Internal Medicine; PCP Internal Medicine; Referring Provider Internal Medicine Cardiovascular Disease; Visit Provider Internal Medicine Cardiovascular Disease
DX: I48.91 Unspecified atrial fibrillation (principal); Z79.01 Long term (current) use of anticoagulants
CPT/HCPCS: 36416; 85610

== ENCOUNTER 2019-04-26 14:23 | Outpatient (RCR) | payer MEDICARE, OTHER, SELFPAY ==
[2019-03-21 15:33] VITALS: BMI 26.2
[2019-04-07 12:51] LABS: Prothrombin Time Fingerstick 18.7 SEC (11.9-14.4)
== END 2019-05-01 12:00 | disposition home or self-care (01) ==
LOC: LAB 14:23
PROVIDERS: Family Provider Internal Medicine; PCP Internal Medicine; Referring Provider Internal Medicine Cardiovascular Disease; Visit Provider Internal Medicine Cardiovascular Disease
DX: I48.0 Paroxysmal atrial fibrillation (principal); Z79.01 Long term (current) use of anticoagulants
CPT/HCPCS: 36416; 85610

== ENCOUNTER → 2019-05-20 | Outpatient (CLI) | payer MEDICARE, OTHER, SELFPAY ==
[2019-03-21 15:33] VITALS: BMI 26.2
--- NOTE | 2019-05-20 13:06 | ECHOD_ITS ---
Reason For Study: DYSPNEA/SOB Procedure This was a 2D Doppler, Color Flow transthoracic echocardiogram. Exam performed in department. Left Ventricle Normal LV size. The estimated ejection fraction is 35 %. Stage 2 diastolic dysfunction. There is moderate to severe global hypokinesis of the left ventricle. Right Ventricle Normal RV size. Normal systolic function. Atria Normal left atrium. Normal right atrium. Mitral Valve Normal mitral valve. Mild (1+) eccentric mitral valve insufficiency. Tricuspid Valve Normal tricuspid valve. Mild (1+) tricuspid valve insufficiency. Pulmonary artery systolic pressure is 38 mmHg. Aortic Valve Trisinus/trileaflet aortic valve. Mild (1+) eccentric aortic valve insufficiency. Pulmonic Valve Normal pulmonic valve. Great Vessels Normal aortic root. The pulmonary artery is normal size. Normal inferior vena cava. Pericardium/Pleural No pericardial effusion. MMode/2D Measurements & Calculations LVIDd: 5.1 cm IVSd: 1.1 cm Ao root diam: 3.5 cm LVIDs: 4.4 cm LVPWd: 1.2 cm RVDd: 3.5 cm FS: 14.3 % LAV(MOD-bp): 71.8 ml LA A4 area: 17.6 cm2 LA dimension(2D): 4.2 cm LAV(MOD-bp) Indexed: 43.3 ml/m2 LAV(MOD-sp2): 62.8 ml LAV(MOD-sp4): 59.5 ml RA A4 area: 13.1 cm2 Doppler Measurements & Calculations MV E max eliel: 93.3 cm/sec Lat Peak E' Eliel: 2.2 cm/sec Med Peak E' Eliel: 2.8 cm/sec MV A max eliel: 64.7 cm/sec E/E' lat: 43.1 E/E' med: 33.6 MV E/A: 1.4 Ao V2 max: 126.0 cm/sec AI max eliel: 359.3 cm/sec LV V1 max: 75.0 cm/sec Ao max P.4 mmHg AI max P.7 mmHg LV V1 max P.3 mmHg Ao V2 mean: 93.9 cm/sec AI dec slope: 139.1 cm/sec2 LV V1 mean P.3 mmHg Ao mean P.8 mmHg AI P1/2t: 756.3 msec LV V1 mean: 55.4 cm/sec Ao V2 VTI: 29.7 cm LV V1 VTI: 18.4 cm MR max eliel: 436.6 cm/sec PA V2 max: 88.9 cm/sec TR max eliel: 290.3 cm/sec MR max P.2 mmHg TR max P.9 mmHg Interpretation Summary Normal LV size. The estimated ejection fraction is 35 %. Stage 2 diastolic dysfunction. There is moderate to severe global hypokinesis of the left ventricle. Mild (1+) eccentric mitral valve insufficiency. Mild (1+) eccentric aortic valve insufficiency. Mild (1+) tricuspid valve insufficiency. The global longitudinal strain = -10.9% (abnormal). Compared to previous study, the left ventricular systolic function has improved.. Ordering Physician: Gary Bullard Referring Physician: Ben Loomis Performed By: Indira Garcia, FELICITAS, RVT
== END | disposition home or self-care (01) ==
LOC: CVS 13:04
PROVIDERS: Family Provider Internal Medicine; PCP Internal Medicine; Referring Provider Internal Medicine Cardiovascular Disease; Visit Provider Internal Medicine Cardiovascular Disease
DX: R06.09 Other forms of dyspnea (principal); R06.02 Shortness of breath; I43 Cardiomyopathy in diseases classified elsewhere
CPT/HCPCS: 93306

== ENCOUNTER 2019-05-30 14:19 | Outpatient (RCR) | payer MEDICARE, OTHER, SELFPAY ==
[2019-03-21 15:33] VITALS: BMI 26.2
[2019-05-14 11:45] LABS: Prothrombin Time Fingerstick 16.3 SEC (11.9-14.4)
[2019-05-30 14:30] LABS: Prothrombin Time Fingerstick 39.3 SEC (11.9-14.4)
== END 2019-05-30 15:00 | disposition home or self-care (01) ==
LOC: LAB 14:19
PROVIDERS: Family Provider Internal Medicine; PCP Internal Medicine; Referring Provider Internal Medicine Cardiovascular Disease; Visit Provider Internal Medicine Cardiovascular Disease
DX: I48.0 Paroxysmal atrial fibrillation (principal); Z79.01 Long term (current) use of anticoagulants
CPT/HCPCS: 36416; 85610

== ENCOUNTER 2019-06-22 13:34 | Outpatient (RCR) | payer MEDICARE, OTHER, SELFPAY ==
[2019-05-30 13:28] VITALS: BMI 24.7
[2019-06-09 16:18] LABS: Prothrombin Time Fingerstick 33.1 SEC (11.9-14.4)
[2019-06-22 15:57] LABS: International Normalized Ratio 3.7
[2019-06-22 16:02] LABS: Prothrombin Time (Protime)PT. 37.1 SECONDS (11.7-14.9)
[2019-06-22 16:06] LABS: Prothrombin Time Fingerstick 50.4 SEC (11.9-14.4)
== END 2019-06-22 15:00 | disposition home or self-care (01) ==
LOC: LAB 13:34
PROVIDERS: Family Provider Internal Medicine; PCP Internal Medicine; Referring Provider Internal Medicine Cardiovascular Disease; Visit Provider Internal Medicine Cardiovascular Disease
DX: I48.0 Paroxysmal atrial fibrillation (principal); Z79.01 Long term (current) use of anticoagulants
CPT/HCPCS: 36415; 36416; 85610

== ENCOUNTER 2019-07-06 14:21 | Outpatient (RCR) | payer MEDICARE, OTHER, SELFPAY ==
[2019-05-30 13:28] VITALS: BMI 24.7
[2019-07-06 15:35] LABS: Prothrombin Time Fingerstick 24.3 SEC (11.9-14.4)
== END 2019-07-06 15:00 | disposition home or self-care (01) ==
LOC: LAB 14:21
PROVIDERS: Family Provider Internal Medicine; PCP Internal Medicine; Referring Provider Internal Medicine Cardiovascular Disease; Visit Provider Internal Medicine Cardiovascular Disease
DX: I48.0 Paroxysmal atrial fibrillation (principal); Z79.01 Long term (current) use of anticoagulants
CPT/HCPCS: 36416; 85610

== ENCOUNTER 2019-07-20 14:00 | Outpatient (RCR) | payer MEDICARE, OTHER, SELFPAY ==
[2019-05-30 13:28] VITALS: BMI 24.7
--- NOTE | 2019-07-19 13:18 | HP.PTEVAL_ITS ---
Patient's Visit Information MARCO ANTONIO HORN is a 83 year old F referred to Physical Therapy by Key Mcintyre MD with a diagnosis of Low back pain, weakness. Date of Evaluation: 07/14/19 Physical Therapist: Win Arana DPT - Visit Plan Frequency: 2-3x /Week Duration: 4-6 Weeks Plan: Start with BLE strength and core stability/neutral spine as toelrated. Pt. expressed need to get out of bath tub independently, work on quad, glute strengthening. - Subjective Findings: Pt. is here today for her initial evaluation with diagnosis of low back pain and weakness. Pt. reports that she recently had an injection and her back pain is doing much better. Her is worried about her weakness in her legs and core. Pt. walks with walker and/or cane at home. Pt. denies leg pain this date. reports having to call EMS several times over the past few months to assist with getting up from floor or bathtub. Pt. has been fairly sedentary over the past few months due to her back pain, but is now feeling better and would like to get back to being more active. pt. reports having 2/10 low back pain this date. She has started to increase her walking at home and is doing a few stairs in their living room to start to build her strength. Pt. is hopeful to get some exercises and increase her BLE strength to improve her walking and stability. is most concerned with her limited ability to get out of bathtub. - Pain Lumbar spine Pain Intensity (Out of 10): 2 Pain Intensity Range: 0, 3 - Objective POSTURE: Pt. has general flexed posture in sitting and standing. Pt. is able to correct with VCing, but not fully. Pt. uses FWW to assist with erect posture. PALPATION: Pt. has mild tenderness aloing lumbar spine, but minimal. NEURO: normal throughout. ROM: Lumbar spine: flexion minnil loss NE, ext- mod loss increase NW, SB min/mod loss bilat NE, rotation min/mod loss NE. Pt. has tight bilateral HS and hip flexors. MMT: Pt. has general strength of 4/5 throughout bilateral LEs, except hip abd 4-/5 bilat. Core strength-poor. GAIT: Pt. ambulates with FWW with good stabilit, but requires VCing to stay with in AD. Pt. is able to ambualte with SPC, but attempts to reach out for szymanski and railings to assist with stability. STAIRS: step to pattern with BHR assistance- fatigue. - Goals Goal 1:: Pt. to be I with HEP. Goal Time Frame: 4-6 Weeks Goal 2:: Pt. to have increased BLE and core strength by 1/2 grade. Goal Time Frame: 4-6 Weeks Goal 3:: Pt. to ambulate RADHA with least restrictive device community level distances. Goal Time Frame: 4-6 Weeks Goal 4:: Pt. to get off the floor RADHA indicating increased ability to get out of bath tub. Goal Time Frame: 4-6 Weeks Goal 5:: Pt. to compelte all ADLs without increase in low back pain. Goal Time Frame: 4-6 Weeks - Rehabilitation Potential Physical Therapy Diagnosis: Pt. has signs and symptoms consistent with low back pain and BLE weakness. Pt. is limited in her functional mobility, BLE weakness and gait difficulty. Rehabilitation Potential: Good - Anticipated Interventions Patient/Client Instruction: Educate patient on: Condition, Plan of Care, Risk Factors, Benefits of Fitness Program For the Purpose of:: To foster healthy habits, To improve decision making, To facilitate caregiver knowledge, To improve self management, To prevent re- injury, To improve ability to perform tasks related to life management, To improve tolerance to ADL's Therapeutic Exercise to Include: Strength training, Power training, Endurance training, Balance training, Body mechanics, Postural training, Flexibilty training, Gait and locomotor training, Passive ROM, Active ROM, Dynamic Lumbar Stabilization For the Purpose of:: To decrease pain, To decrease swelling/inflammation, To increase ROM, To improve nutrient delivery to tissue, To increase oxygenation perfusion, To improve muscle performance and motor function, To improve ability to perform ADL's, To increase tolerance to activity/condition/position, To improve performance and independence with ADL's, To decrease level of supervision to perform tasks, To improve ability of physical actions for home/community/work/leisure, To improve gait and locomotor functions Thank you for the opportunity to evaluate your patient. For Medicare and Medicare HMO plans, please review the plan of care and approve it. It will need to be FAXED BACK to us at [phone] for Medicare purposes. For Medicare only, by signing this I certify the plan of care. Please let me know if there are questions or concerns regarding this plan of care. Physician Signature: Date:
--- NOTE | 2019-12-06 08:22 | HP.PTDCNRP_ITS ---
HP - Discharge Summary (1) - Patient Information MARCO ANTONIO HORN was seen in my office for initial evaluation on 07/14/19. The following Plan of Care was established for this patient: Initial Frequency: 2-3x /Week Initial Duration: 4-6 Weeks - Anticipated Interventions Patient/Client Instruction: Educate patient on: Condition, Plan of Care, Risk Factors, Benefits of Fitness Program For the Purpose of:: To foster healthy habits, To improve decision making, To facilitate caregiver knowledge, To improve self management, To prevent re- injury, To improve ability to perform tasks related to life management, To improve tolerance to ADL's Therapeutic Exercise to Include: Strength training, Power training, Endurance training, Balance training, Body mechanics, Postural training, Flexibilty training, Gait and locomotor training, Passive ROM, Active ROM, Dynamic Lumbar Stabilization For the Purpose of:: To decrease pain, To decrease swelling/inflammation, To increase ROM, To improve nutrient delivery to tissue, To increase oxygenation perfusion, To improve muscle performance and motor function, To improve ability to perform ADL's, To increase tolerance to activity/condition/position, To improve performance and independence with ADL's, To decrease level of supervision to perform tasks, To improve ability of physical actions for home/community/work/leisure, To improve gait and locomotor functions This patient was last seen in our office 07/25/19. Pertinent comments regarding their Physical therapy will appear below: Pt. has not been seen in several months and will be DC from PT at this point in time. At this point I will be discontinuing this patient from physical therapy. I would be happy to see this patient again in the future if found appropriate by the physician. Thank you! Win Arana, JOSIAHT
== END 2019-07-20 19:00 | disposition home or self-care (01) ==
LOC: PT 14:00
PROVIDERS: Family Provider Internal Medicine; PCP Internal Medicine; Referring Provider Anesthesiology Pain Medicine; Visit Provider Anesthesiology Pain Medicine
DX: M54.9 Dorsalgia, unspecified (principal); R29.898 Other symptoms and signs involving the musculoskeletal system
CPT/HCPCS: 97110; 97161

== ENCOUNTER 2019-07-27 18:13 | Inpatient (IN) | payer MEDICARE, OTHER, SELFPAY ==
[2019-05-30 13:28] VITALS: BMI 24.7
[2019-07-27 18:14] VITALS: BP 109/48; PULSE 64; RESP 18; TEMP 37; O2SAT 93; BMI 23.8
--- NOTE | 2019-07-27 19:26 | EKG12_ITS ---
Test Reason : WEAKNESS Blood Pressure : / mmHG Vent. Rate : 062 BPM Atrial Rate : 062 BPM P-R Int : 180 ms QRS Dur : 170 ms QT Int : 504 ms P-R-T Axes : 037 -51 105 degrees QTc Int : 511 ms Normal sinus rhythm Left axis deviation Left bundle branch block Abnormal ECG Confirmed by KSENIA PARADA, HANDY ([id number]), sound editor WILLIAM COOLEY ([id number]) on 07/29/2019 10:16:13 A M Referred By: Key Mcintyre Confirmed By:STEVO MCCORMACK MD
[2019-07-27 19:30] VITALS: BP 124/69; PULSE 61; RESP 24; O2SAT 86
--- NOTE | 2019-07-27 19:30 | RAD_ITS ---
STUDY: X-RAY CHEST REASON FOR EXAM: Female, 83 years old. Cough TECHNIQUE: AP portable COMPARISON: November 16, 2018 FINDINGS: There is interstitial thickening in the right upper and left lower lobes possibly representing inflammatory changes.. There is no demonstrated pleural abnormality. Heart is mildly enlarged.. Normal mediastinum and adithya. Normal visualized pulmonary arteries. Mildly calcified aortic arch and descending thoracic aorta. Normal visualized thoracic spine. Normal visualized ribs, clavicles, and shoulders. There is no demonstrated abnormality of the visualized soft tissue structures of the upper abdomen. RAD/Chest 1 View (Portable) IMPRESSION: Mild interstitial thickening in the right upper and left lower lobes possibly inflammatory changes. Clinical correlation recommended Electronically Signed: John Horner MD at 20:03 EDT , Service support ,
[2019-07-27 19:32] VITALS: O2SAT 90
[2019-07-27 19:51] LABS: Absolute Lymphocyte Count 0.72 X10^3/uL (0.83-4.51); Absolute Neutrophil Count 4.9 X10^3/uL (2.0-7.7); Basophil# 0.04 X10^3/uL; Basophil% 0.6 % (0-1); Eosinophil# 0.15 X10^3/uL; Eosinophils% 2.4 % (0-5); Hematocrit 37.8 % (37-47); Hemoglobin 12.4 g/dL (12.0-15.0); Lymphocyte # 0.72 X10^3/ul (4.0); Lymphocyte % 11.5 % (19-41); Mean Corp Hgb Conc 32.8 g/dL (32-36); Mean Corpuscular Hgb 32.4 pg (27.0-32.0); Mean Corpuscular Volume 98.7 fL (81-99); Mean Platelet Vol. 10.4 fl (6.2-12.0); Monocyte# 0.46 X10^3/uL; Monocyte% 7.3 % (0-10); NRBC Flagged by Analyzer 0 % (0-5); Neutrophil # 4.89 X10^3/uL (2.7-7.7); Neutrophil % 77.9 % (47-70); Platelet Count 226 K/mm3 (150-450); RBC Distribution Width CV 14.7 % (11.6-14.6); RBC Distribution Width SD 53.9 fl (35.1-43.9); Red Blood Count 3.83 M/mm3 (4.2-5.4); White Blood Count 6.3 K/mm3 (4.4-11.0)
[2019-07-27] MEDS: 0.9% Normal Saline 1,000 ML 150 ML IV (20:00)
[2019-07-27 20:03] LABS: International Normalized Ratio 1.5; Prothrombin Time (Protime)PT. 18.2 SECONDS (11.7-14.9)
[2019-07-27 20:13] LABS: Anion Gap 6 (5-15); BUN 15 mg/dL (7-18); BUN/Creat Ratio 12.1 RATIO (10-20); Calcium,Total 8.8 mg/dL (8.5-10.1); Chloride 104 mmol/L (98-107); Creatinine, Serum 1.24 mg/dL (0.55-1.02); EST Glomerular Filtration Rate 44 mL/min (>60); Est Glom Filt Rate - Afr Amer 53 mL/min (>60); Estimated Creatinine Clearance 28.14 ml/min; Glucose 108 mg/dL (74-106); Sodium Level 139 mmol/L (136-145)
[2019-07-27 20:37] LABS: Bacteria 0 SEEN /hpf (None Seen); Color, Urine Yellow (Yellow); Glucose, Dipstick Normal (Normal); Ketone-Dipstick Negative (Negative); Leukocyte Esterase-Dipstick 25 /ul (Negative); Mucous, Urine 0 SEEN /hpf (<or=2+); Nitrite-Dipstick Negative (Negative); Occult Blood-Urine Negative /ul (Negative); Protein-Dipstick 15 mg/dl (Negative); Specific Gravity, Urine 1.015 (1.002-1.030); Squamous Epithelial Cells - UA 0 SEEN /hpf (5-10); Urine Bilirubin Dipstick Negative (Negative); Urine Clarity Clear (Clear); Urine Urobilinogen Normal (Normal); White Blood Cells 0 SEEN /hpf (0-5)
[2019-07-27 20:44] LABS: Red Blood Cells-Urine 0-5 SEEN /hpf (0-5)
[2019-07-27 21:00] VITALS: BP 131/64; PULSE 61; RESP 21; O2SAT 95
[2019-07-27 21:20] LABS: D-Dimer Quantitative (DVT/PE) 0.94 FEU/ug/m (0.27-0.49)
--- NOTE | 2019-07-27 21:21 | ED.RN ---
DR CHAVIS NOTIFIED OF DDIMER RESULTS
--- NOTE | 2019-07-27 21:22 | CT_ITS ---
STUDY: CTA CHEST REASON FOR EXAM: Female, 83 years old. Dyspnea RADIATION DOSAGE (If Supplied By Facility): CTDIvol = ( 5.58 ) mGy, DLP = ( 181.41 ) mGycm TECHNIQUE: The examination was performed with the intravenous administration of IV 75mL [id number]-370 75ML. Post-processing of the angiographic images was performed, with multiplanar reformation and 3D reconstruction. Individualized dose optimization techniques were used for this CT. COMPARISON: None. FINDINGS: Normal enhancement of the main pulmonary artery and right and left pulmonary arteries. Normal enhancement of the bilateral peripheral pulmonary arteries. There is no demonstrated pulmonary embolism. Atherosclerotic changes of the aorta without evidence for aneurysm There is no demonstrated aortic dissection. The heart is enlarged and there is multifocal coronary artery calcification. Multiple subcentimeter hilar and mediastinal nodes of uncertain clinical significance. Normal visualized trachea and bronchi. The lungs are well expanded. There is diffuse interstitial thickening and emphysematous changes. Multifocal groundglass opacities consistent with nonspecific alveolitis with most severe involvement of the right upper and to a lesser extent left upper lobe Normal pleura. Postop change status post right mastectomy. Dorsal spine demonstrates mild spondylosis. Normal visualized upper abdomen. CT/CTA Chest W/WO Contrast IMPRESSION: Mild diffuse generalized interstitial thickening with emphysematous changes and multifocal groundglass opacities most pronounced in the upper lobes greater on the right. No evidence for pulmonary embolus. Electronically Signed: John Horner MD at 22:19 EDT , Service support ,
[2019-07-27 22:30] VITALS: O2SAT 81
[2019-07-27 22:39] VITALS: BP 137/58; PULSE 61; RESP 23; O2SAT 93
--- NOTE | 2019-07-27 22:39 | ED.RN ---
PT FOUND WITH NASAL CANNULA REMOVED FROM NOSE, SPOUSE STATES SHE LIKELY REMOVED IT HERSELF. SPO2 81% ON ROOM AIR. O2 REAPPLIED AT 4L NC, SPO2 93% AT THIS TIME. NOTIFIED.
[2019-07-27] MEDS: MethylPREDNISolone 125 MG/2 ML Vial 60 MG IV (22:59)
--- NOTE | 2019-07-27 23:19 | ED.VISSUMM ---
- ER Visit Summary Date of Service: 07/27/19 Chief Complaint: [Generalized weakness] History of Present Illness: The patient is a 83 F [presents to the emergency department with complaint of generalized weakness for the last 3 to 4 days. Per patient getting more more weak and she is had some increased confusion. Patient has been falling more of late but has had no injury. Patient has been having some pain in her back that returned last week after having an injection in her back about a month ago by pain management. Patient does have history of UTIs. She has history of prior stroke. She is a history of CHF. Patient has had atrial fibrillation and is currently on Coumadin. She does have history of dementia and she is somewhat of a poor historian. Patient does have history of dilated cardiomyopathy with an EF of 25 to 30%.] Physical Examination: [HEENT-PERRLA, EOMI. Cranial nerves II through XII grossly intact. TMs clear. Mucous membranes moist. No adenopathy. Cardiovascular-regular rate and rhythm without murmur or ectopy Lungs-clear to auscultation, chest wall stable without crepitus or subcu emphysema Abdomen-normoactive bowel sounds, soft, nontender, no rebound or rigidity, no peritoneal signs. Extremities-intact ?4, normal range of motion, normal pulses, atraumatic] Test Results: [EKG obtained showed a sinus rhythm with a ventricular rate of 62 bpm with a left bundle branch block which is chronic. CBC with differential shows a white count of 6.3, hemoglobin 12, hematocrit 38, platelets 226. Chemistries unremarkable. INR is 1.5. Troponin is less than 0.15. Chest x-ray showed some increased markings in the right upper lobe as well as the left lower lobe. CT scan of the chest showed no evidence for PE and she did have some alveolitis. Patient has some emphysematous changes.] Emergency Department Course and Treatment: [Arrival patient was noted to be hypoxic with O2 sats in the low 80s. Patient was placed on nasal cannula O2. Patient received a DuoNeb aerosol as well as Solu-Medrol 60 mg IV.] Treatment Plan: [Admit] Disposition: [Admit] Impression: [Weakness Hypoxemia] This note was generated with [employer] dictation software. It may contain incorrect words, spelling, and punctuation that were not noted in review of the chart prior to signing ED Disposition - Plan for ED Patient: Referrals: Ben Loomis MD [Primary Care Provider] -
--- NOTE | 2019-07-27 23:37 | PCM.HP.STD ---
Problem List (1) Weakness Status: Acute (2) Essential (primary) hypertension Status: Chronic (3) Paroxysmal atrial fibrillation Status: Chronic (4) Chronic systolic (congestive) heart failure Status: Chronic History of Present Illness Date of Admission: 07/28/19 Chief Complaint: Weakness and hypoxia The patient is a 83 year old F with a PMH as below who presents with worsening progressive weakness over the last several days. She has a history of expressive aphasia and dementia and therefore most of the history was taken from the . He states that several months ago she was having significant back pain and was started on narcotics. She had a disc bulge and L4-L5 and L5-S1, and she because of that was not very mobile and was sitting in a chair for most of the day. She ended up seeing Dr. Mcintyre as an outpatient and had an injection 5 weeks ago, which relieved her pain and she started on outpatient physical therapy. She seemed to be doing fairly well until 3 to 4 days ago when her pain started up again and she became progressively weaker. She got to the point where she could not be taking care of at home by her and therefore he came to the ER. In the ER she was found to be hypoxic with an oxygen sat in the 80s and at times it was going down into the 70s. She was placed on oxygen with some recovery of her hypoxia. She has a history of A. fib and is on Coumadin and therefore a CTA of the chest was performed because her INR was 1.5, and the CT of the chest was negative for PE. Per the they have had difficulties managing her INR on her Coumadin. CTA of the chest did also demonstrate a right upper lobe alveolitis and therefore she was started on breathing treatments and steroids in the ER. The denies a history of smoking, and she has not had any recent upper respiratory illnesses. 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22 nursing home (current) use of anticoagulants (Chronic) Z79.01 Hypothyroidism E03.9 Anxiety and depression F41.9, F32.9 Dementia F03.90 Expressive aphasia R47.01 Joint pain M25.50 Breast cancer C50.919 Allergies Penicillins [PCN] Allergy (Verified 07/27/19 18:16) Rash Home Medications: Ambulatory Orders Medication Instructions Recorded Calcium Citrate/Vitamin D3 315 ea PO TIDCM 01/05/17 [Calcium Citrate - Vit D Caplet] Cholecalciferol (Vitamin D3) 2,000 unit PO DAILY 01/05/17 [Vitamin D3] Amiodarone HCl [Cordarone] 200 mg PO DAILY 10/06/18 Aspirin E.C. [Ecotrin] 81 mg PO DAILY 10/06/18 Dymista 1 puff NASAL BID PRN PRN 10/06/18 Cyanocobalamin (Vitamin B-12) 1,000 mcg PO DAILY 11/02/18 [B-12] levothyroxine 50 mcg capsule 50 mcg PO DAILY 02/18/19 warfarin 1 mg tablet 1.5 mg PO DAILY tab 03/04/19 cyclobenzaprine 5 mg tablet 5 mg PO BID tab 05/30/19 duloxetine 20 mg capsule,delayed 20 mg PO DAILY cap 05/30/19 release memantine 5 mg tablet 10 mg PO BID 05/30/19 carvedilol 6.25 mg tablet 6.25 mg PO BID #180 tab 06/22/19 Losartan Potassium 25 mg PO DAILY 07/27/19 Tramadol HCl/Acetaminophen 0 ea PO DAILY PRN 07/27/19 [Ultracet Tablet] Surgical History: Surgical History (Last Reviewed 02/18/19 @ 11:44 by Gary Bullard MD) H/O right mastectomy Z90.11 Surgical History: appendectomy, cataract, mastectomy - Right., - - Lumpectomy, tubal ligation, right breast mass biopsy. 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 Smoking Status: Never smoker Alcohol: None Drugs: None - *Family History Maternal Family History: Family History (Last Reviewed 02/18/19 @ 11:44 by Gary Bullard MD) Grandmother Diabetes History Items: No pertinent history Paternal Family History: Family History (Last Reviewed 02/18/19 @ 11:44 by Gary Bullard MD) Grandmother Diabetes History Items: No pertinent history Review of Systems Unable to obtain accurate/complete ROS d/t: Expressive aphasia and dementia VTE Information - Inpt Only VTE Present on Admission: No Patient Problems: Active and Suspected Problems (Last Reviewed 02/18/19 @ 11:44 by Gary Bullard MD) Weakness (Acute) - Physical Exam General: Cooperative, No apparent distress HEENT: Atraumatic, PERRLA, EOMI, Normocephalic Oral: Moist Mucosa Neck: Supple, No JVD Lungs: Normal air movement, No wheeze, Diminished, Rhonchi - Right upper lobe Cardiovascular: Regular rate, Regular Rhythm, Normal S1, Normal S2, No murmurs Abdomen: Soft, Non Tender, Non-Distended, No Hepato-splenomegaly Extremities: No edema, Capillary Refill Less than 3 Seconds Skin: No rashes, No breakdown Neurological: Motor Exam 5/5 strength throughout, Sensory exam intact to light touch and pain Psych/Mental Status: Normal Affect, Appropriate Vital Signs Temp Pulse Resp BP Pulse Ox 98.6 F 61 23 H 137/58 H 93 07/27/19 18:14 07/27/19 22:39 07/27/19 22:39 07/27/19 22:39 07/27/19 22:39 Oxygen Flow Rate (L/min) 4 Oxygen Delivery Method Nasal Cannula Weight: 130 lb Body Mass Index (BMI) 23.8 Laboratory Tests Past 24 Hrs 07/27/19 07/27/19 07/27/19 19:40 19:40 19:40 WBC 6.3 RBC 3.83 L Hgb 12.4 Hct 37.8 MCV 98.7 MCH 32.4 H MCHC 32.8 RDW Std Deviation 53.9 H RDW Coeff of Silvano 14.7 H Plt Count 226 MPV 10.4 Immature Gran % (Auto) 0.300 Neut % (Auto) 77.9 H Lymph % (Auto) 11.5 L [place] % (Auto) 7.3 Eos % (Auto) 2.4 Baso % (Auto) 0.6 Absolute Neuts (auto) 4.9 Absolute Lymphs (auto) 0.72 L Nucleated RBC % 0 PT 18.2 H INR 1.5 D-Dimer Quant (PE/DVT) Sodium 139 Potassium 4.0 Chloride 104 Carbon Dioxide 29.0 Anion Gap 6 BUN 15 Creatinine 1.24 H Estim Creat Clear Calc 28.14 Est GFR (MDRD) Af Amer 53 L Est GFR (MDRD) Non-Af 44 L BUN/Creatinine Ratio 12.1 Glucose 108 H Calcium 8.8 Troponin I < 0.015 Urine Color Urine Clarity Urine pH Ur Specific [place] Urine Protein Urine Glucose (UA) Urine Ketones Urine Occult Blood Urine Nitrite Urine Bilirubin Urine Urobilinogen Ur Leukocyte Esterase Urine RBC Urine WBC Ur Squamous Epith Cells Urine Bacteria Urine Mucus 07/27/19 07/27/19 19:40 20:25 WBC RBC Hgb Hct MCV MCH MCHC RDW Std Deviation RDW Coeff of Silvano Plt Count MPV Immature Gran % (Auto) Neut % (Auto) Lymph % (Auto) [place] % (Auto) Eos % (Auto) Baso % (Auto) Absolute Neuts (auto) Absolute Lymphs (auto) Nucleated RBC % PT INR D-Dimer Quant (PE/DVT) 0.94 H* Sodium Potassium Chloride Carbon Dioxide Anion Gap BUN Creatinine Estim Creat Clear Calc Est GFR (MDRD) Af Amer Est GFR (MDRD) Non-Af BUN/Creatinine Ratio Glucose Calcium Troponin I Urine Color Yellow Urine Clarity Clear Urine pH 6.0 Ur Specific [place] 1.015 Urine Protein 15 H Urine Glucose (UA) Normal Urine Ketones Negative Urine Occult Blood Negative Urine Nitrite Negative Urine Bilirubin Negative Urine Urobilinogen Normal Ur Leukocyte Esterase 25 H Urine RBC 0-5 SEEN Urine WBC 0 SEEN Ur Squamous Epith Cells 0 SEEN Urine Bacteria 0 SEEN Urine Mucus 0 SEEN Assessment/Plan All Active Problems (Last Reviewed 04/19/19 @ 11:44 by Gary Bullard MD) Weakness (Acute) 1. Acute hypoxic respiratory failure secondary to alveolitis/AMISH -Oxygen saturation is in the 80s, will continue with O2 via nasal cannula -Can place on CPAP -Continue with IV steroids and duo nebs -She is afebrile without a leukocytosis, there is no signs of pneumonia on imaging 2. Progressive weakness/spinal stenosis and disc bulge L4-S1 -There is a history of spinal stenosis and disc bulge -We will obtain a PT/OT evaluation -We will consult case management for discharge planning and possible placement 3. Ischemic cardiomyopathy with systolic CHF which is chronic/paroxysmal A. fib -She does not appear to be in exacerbation with her CHF, will continue with her home Coreg, aspirin, and amiodarone -Continue with Coumadin, will monitor INR. I did discuss with him the possibility of switching to Eliquis which she seems to be in favor for if cardiology is okay with that -Echo in May 2019, with an EF of 35% and stage II diastolic dysfunction, she does not have edema and she does not have rales, and there does not appear to be any significant pleural effusion on CT of her chest -Given her chronic kidney disease with a reduced GFR, BNP is not likely to be helpful 4. Dementia/depression/anxiety -Stable -Continue with Cymbalta, memantine 5. Hypothyroidism -TSH 9 months ago was 4.32 with a free T4 of 0.96 -Continue with her home Synthroid DVT: Coumadin and SCDs CODE STATUS DNR CCA Code Visit Inpatient E&M: [id number] Init Hosp L3
[2019-07-28] VITALS (17 sets, daily range): BP systolic 104–140; BP diastolic 52–83; PULSE 54–78; RESP 16–20; TEMP 36.4–37.2; O2SAT 92–97; BMI 26.0
[2019-07-28] MEDS: 0.9% Normal Saline 1,000 ML 75 ML IV (00:40)
[2019-07-28] MEDS: Ipratropium/Albuterol Sulfate 3 ML AMPUL.NEB INHALATION ×2 (01:16→07:43)
--- NOTE | 2019-07-28 01:21 | CPS ---
rt moved oxygen sensor to patients right foot due to poor signal on finger and ear.
[2019-07-28] MEDS: Levothyroxine 50 MCG Tablet PO (05:05)
[2019-07-28 06:14] LABS: Absolute Lymphocyte Count 0.52 X10^3/uL (0.83-4.51); Absolute Neutrophil Count 5.3 X10^3/uL (2.0-7.7); Basophil# 0.02 X10^3/uL; Basophil% 0.3 % (0-1); Hemoglobin 11.3 g/dL (12.0-15.0); Lymphocyte # 0.52 X10^3/ul (4.0); Lymphocyte % 8.6 % (19-41); Mean Corp Hgb Conc 32.3 g/dL (32-36); Mean Corpuscular Hgb 31.6 pg (27.0-32.0); Mean Corpuscular Volume 97.8 fL (81-99); Mean Platelet Vol. 10.5 fl (6.2-12.0); Monocyte# 0.15 X10^3/uL; Monocyte% 2.5 % (0-10); NRBC Flagged by Analyzer 0 % (0-5); Neutrophil # 5.31 X10^3/uL (2.7-7.7); Neutrophil % 88.1 % (47-70); POSITIVE DIFFERENTIAL YES; Platelet Count 211 K/mm3 (150-450); RBC Distribution Width CV 14.6 % (11.6-14.6); RBC Distribution Width SD 52.6 fl (35.1-43.9); Red Blood Count 3.58 M/mm3 (4.2-5.4)
[2019-07-28 06:18] LABS: Differential Indicated SCAN CRITERIA MET
[2019-07-28 06:19] LABS: International Normalized Ratio 1.5; Prothrombin Time (Protime)PT. 17.8 SECONDS (11.7-14.9)
[2019-07-28 06:26] LABS: Anion Gap 2 (5-15); BUN 15 mg/dL (7-18); BUN/Creat Ratio 14.7 RATIO (10-20); Calcium,Total 8.3 mg/dL (8.5-10.1); Chloride 108 mmol/L (98-107); Creatinine, Serum 1.02 mg/dL (0.55-1.02); EST Glomerular Filtration Rate 55 mL/min (>60); Est Glom Filt Rate - Afr Amer 67 mL/min (>60); Estimated Creatinine Clearance 32.64 ml/min; Glucose 144 mg/dL (74-106); Sodium Level 138 mmol/L (136-145)
[2019-07-28 08:42] LABS: BNP,B-Type NATRIURETIC PEPTIDE 1113.4 pg/mL (0-100)
--- NOTE | 2019-07-28 08:43 | CASEMGMT ---
POA form scanned into the summary tab of e-chart. Pt's , Dragan Becker is listed as pt's medical POA. Pt does not have a living will, though she has initialed the living will provision in the POA document. AMPARO Shea
[2019-07-28] MEDS: Losartan Potassium 25 MG Tablet PO (10:00)
[2019-07-28] MEDS: Amiodarone 200 MG Tablet PO (10:00)
[2019-07-28] MEDS: Memantine Hydrochloride 10 MG Tablet PO ×2 (10:00→21:36)
[2019-07-28] MEDS: Aspirin E.C. 81 MG Tablet PO (10:00)
[2019-07-28] MEDS: DULoxetine Hcl 20 MG Capsule PO (10:00)
[2019-07-28] MEDS: cycloBENZAPRine HCl 5 MG TABLET PO ×2 (11:43→21:35)
[2019-07-28] MEDS: Carvedilol 6.25 MG Tablet PO ×2 (11:43→21:35)
--- NOTE | 2019-07-28 11:47 | CASEMGMT ---
RN CM Assessment Introduced role of RN CM to patient at bedside as patient currently using the restroom Per Dragan- patient mentation is starting to improve since this hospitalization. ?Care providers, pharmacy, and demographics verified. Presentation: Generalized Weakness x3-4days, increased confusion. Has been falling. H/o Dementia and poor historian. 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 States he is her caregiver with any care needs but would like information/resources to hire an Aide if needed in the future. States Dtr Dawn lives in [place], [place] and Son lives in [place], [place]. Denies any other support except has some friends but does not want to ask for their help until he really needs it. PCP: Ben Loomis Specialists: Pain- Dr Mcintyre, Pulm- Dr Escalona but states Dr Torres for her CPAP, Cardio- Dr Bullard Preferred Pharmacy: [facility] Insurance: [facility] A&B Rx Benefit:?Yes with [facility] ?LNOK: Dragan Ramirez LW/HPOA: Yes HPOA on file and is her Dragan Ramirez Living Arrangements:? Lives with her in a 2 story home, patient sewing room on upper [address] and has a chair lift to take her up. All other living area on 1[address] fl, 2 steps from 1st fl into Den. 2 Steps to enter home from the garage. ADL?s: States ambulatory status varies and is determined by her current condition. States that she fell in the spring abd was using a walker after that and receiving PT, states was able to get back to baseline walking independently but at times using cane. Oct 2018 developed back pain and would use walker or cane prn. Independent with ADLs Transportation: DME: Cane, Walker, Grab bars in bathroom, chair lift, CPAP-[employer] (States that since a switch in staff they are unsatisfactory). HHC: None. States currently is attending [facility] for PT SNF: TCU in past, states that this is the only facility that patient will go to. Goal: States if patient cannot complete her ADLs at time of hospital DC then preference is to go to TCU. States if able to complete ADLs but still going to require Home O2- would like a list of DME agencys to choose from, however he feels after patient is treated here at the hospital that she will return to her baseline oxygen status. Denies any issues, concerns, or questions at this time with DC planning. Aware CM remains available for any emerging needs. DC PLAN: Home with Outpt PT and possible Home O2 vs TCU. Resources provided to patient for private pay aides, and other services. Cyrus Keith RNCM
[2019-07-28] MEDS: Tamsulosin HCl 0.4 MG Capsule PO (13:19)
[2019-07-28] MEDS: Acetaminophen 325 MG Tablet 650 MG PO ×2 (13:19→21:36)
--- NOTE | 2019-07-28 13:51 | CON.PCM_ITS ---
Reason for Consult Date of Consultation: 07/28/19 Reason for Consultation: CHF versus alveolitis History of Present Illness: The patient is an 83-year-old female, with a history as outlined below, who presented to the emergency department on July 27 with generalized weakness, confusion and hypoxemia. The patient does have a history of having been admitted to the hospital in November 2017 with acute respiratory failure. A CTA of the chest completed during that hospitalization revealed evidence of upper lobe predominant airspace opacities and small bilateral pleural effusions. The patient ultimately had to be transferred to [facility], where she was apparently treated for pneumonia and decompensated heart failure in the setting of atrial fibrillation with a rapid ventricular rate. She also has a known history of central sleep apnea, which has been managed previously in the past by Dr. Torres. The patient has had issues recently with chronic low back pain, for which she is followed by Dr. Meza of pain management. In light of treatment by him, the patient has become more ambulatory and active. The patient denies a prior smoking history. She does not vape. She denies any recent sick contact exposures. She denies the presence of a cough. She denies any recent weight gain. She does endorse some difficulty with swallowing some foods. However, she does not recall a neil aspiration event. On presentation to the emergency department, the patient was noted to be afebrile and hemodynamically stable. She was maintaining appropriate oxygen saturations initially on room air. Laboratory evaluation revealed no evidence of a leukocytosis. Coagulation profile was within normal limits. D-dimer was elevated to 0.94. Creatinine was mildly elevated to 1.24. Troponin was negative. BNP was elevated to 1113. A CTA chest was obtained which did not demonstrate evidence for PE. There was, however, evidence of groundglass interstitial changes bilaterally, which appeared most pronounced in the upper lobes, right greater than left. The patient was treated with nebs and IV steroids in the emergency department. She was subsequently admitted to the progressive care unit for further management. Surface echocardiogram last completed in May 2019 revealed normal LV size with an ejection fraction of 35% and stage II diastolic dysfunction. There is moderate to severe global hypokinesis of the LV. Pulmonary artery systolic pressure was estimated to be 38 mmHg. Past Medical History Past Medical History (Chronic Problems): Chronic Problems (Last Reviewed 02/18/19 @ 11:44 by Gary Bullard MD) Essential (primary) hypertension (Chronic) History of breast cancer (Chronic) 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) last ECHO with a 35 % EF Secondary pulmonary arterial hypertension (Chronic) Nonrheumatic aortic valve insufficiency (Chronic) Nonrheumatic mitral (valve) insufficiency (Chronic) Non-rheumatic tricuspid valve insufficiency (Chronic) Paroxysmal atrial fibrillation (Chronic) retirement (current) use of anticoagulants (Chronic) Medical History: Medical History (Last Reviewed 02/18/19 @ 11:44 by Gary Bullard MD) Essential (primary) hypertension (Chronic) I10 History of breast cancer (Chronic) Z85.3 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) I43 last ECHO with a 35 % EF Secondary pulmonary arterial hypertension (Chronic) I27.21 Nonrheumatic aortic valve insufficiency (Chronic) I35.1 Nonrheumatic mitral (valve) insufficiency (Chronic) I34.0 Non-rheumatic tricuspid valve insufficiency (Chronic) I36.1 Paroxysmal atrial fibrillation (Chronic) I48.0 Chronic systolic (congestive) heart failure (Acute) 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 [Ecotrin] 81 mg PO DAILY 10/06/18 Dymista 1 puff NASAL BID PRN PRN 10/06/18 Cyanocobalamin (Vitamin B-12) 1,000 mcg PO DAILY 11/02/18 [B-12] levothyroxine 50 mcg capsule 50 mcg PO DAILY 02/18/19 warfarin 1 mg tablet 1.5 mg PO DAILY tab 03/04/19 cyclobenzaprine 5 mg tablet 5 mg PO BID tab 05/30/19 duloxetine 20 mg capsule,delayed 20 mg PO DAILY cap 05/30/19 release memantine 5 mg tablet 10 mg PO BID 05/30/19 carvedilol 6.25 mg tablet 6.25 mg PO BID #180 tab 06/22/19 Losartan Potassium 25 mg PO DAILY 07/27/19 Tramadol HCl/Acetaminophen 0 ea PO DAILY PRN PRN 07/27/19 [Ultracet Tablet] Surgical History: Surgical History (Last Reviewed 02/18/19 @ 11:44 by Gary Bullard MD) H/O right mastectomy Z90.11 Surgical History: appendectomy, cataract, mastectomy - Right., - - Lumpectomy, tubal ligation, right breast mass biopsy. 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 CONSULTANT history Smoking Status: Never smoker Alcohol: None Drugs: None - *Family History Maternal Family History: Family History (Last Reviewed 02/18/19 @ 11:44 by Gary Bullard MD) Grandmother Diabetes History Items: No pertinent history Paternal Family History: Family History (Last Reviewed 02/18/19 @ 11:44 by Gary Bullard MD) Grandmother Diabetes History Items: No pertinent history Review of Systems Constitutional: Reports: Weakness, Fatigue Eyes: Denies: Blurred vision, Double vision HEENT: Reports: Difficulty Swallowing, Dysphasia Cardiovascular: Denies: Chest Pain, Palpitations Respiratory: Denies: Cough, Sputum production Gastrointestinal: Denies: Abdominal Pain, Nausea, Vomiting Genitourinary: Denies: Dysuria Musculoskeletal: Reports: Back Pain Skin: Denies: Rash, Wounds Neurological: Denies: Numbness, Tingling, Focal weakness Psychiatric: Denies: Anxiety, Depression, Homicidal Ideations, Suicidal Ideations Hematologic/ Lymphatic: Denies: Easy Bruising, Easy Bleeding Patient Problems: Active and Suspected Problems (Last Reviewed 02/18/19 @ 11:44 by Gary Bullard MD) Weakness (Acute) Objective: The patient's most recent lab work, culture data and imaging studies have all been personally reviewed. - Physical Exam General: Alert, Cooperative, No apparent distress, - - is present at the bedside. HEENT: Atraumatic, PERRLA, Normocephalic Oral: No Gingival or Mucosal Lesions/ Ulcerations Neck: Supple, No Nodes, Trachea Midline Lungs: Diminished, - - Rales localized in the right upper lobe Cardiovascular: Regular rate, Regular Rhythm, Normal S1, Normal S2, No murmurs Abdomen: Bowel Sounds Present, Soft, Non Tender Extremities: No clubbing, No cyanosis, No edema Skin: No breakdown Musculoskeletal: No Tenderness to Palpation of Joints or Extremities Lymphatic: No Cervical, Supraclavicular, or Inguinal Adenopathy Neurological: - - No focal neurological deficits. Speech is dysarthric Psych/Mental Status: Normal Affect, Appropriate Vital Signs Temp Pulse Resp BP Pulse Ox 97.7 F L 63 20 H 140/68 H 95 07/28/19 09:53 07/28/19 12:35 07/28/19 09:53 07/28/19 11:43 07/28/19 09:53 Oxygen Flow Rate (L/min) 6 Oxygen Delivery Method Nasal Cannula Weight: 137 lb 12.623 oz Body Mass Index (BMI) 26.0 Intake and Output for Last 24 Hours 07/26/19 07/27/19 07/28/19 23:59 23:59 23:59 Intake Total 1841.25 / 1841.25 Output Total 250 / 250 Balance 1591.25 / 1591.25 Laboratory Tests Past 24 Hrs 07/27/19 07/27/19 07/27/19 19:40 19:40 19:40 WBC 6.3 RBC 3.83 L Hgb 12.4 Hct 37.8 MCV 98.7 MCH 32.4 H MCHC 32.8 RDW Std Deviation 53.9 H RDW Coeff of Silv[place] 14.7 H Plt Count 226 MPV 10.4 Immature Gran % (Auto) 0.300 Neut % (Auto) 77.9 H Lymph % (Auto) 11.5 L [place] % (Auto) 7.3 Eos % (Auto) 2.4 Baso % (Auto) 0.6 Absolute Neuts (auto) 4.9 Absolute Lymphs (auto) 0.72 L Nucleated RBC % 0 PT 18.2 H INR 1.5 D-Dimer Quant (PE/DVT) Sodium 139 Potassium 4.0 Chloride 104 Carbon Dioxide 29.0 Anion Gap 6 BUN 15 Creatinine 1.24 H Estim Creat Clear Calc 28.14 Est GFR (MDRD) Af Amer 53 L Est GFR (MDRD) Non-Af 44 L BUN/Creatinine Ratio 12.1 Glucose 108 H Calcium 8.8 Troponin I < 0.015 B-Natriuretic Peptide Urine Color Urine Clarity Urine pH Ur Specific [place] Urine Protein Urine Glucose (UA) Urine Ketones Urine Occult Blood Urine Nitrite Urine Bilirubin Urine Urobilinogen Ur Leukocyte Esterase Urine RBC Urine WBC Ur Squamous Epith Cells Urine Bacteria Urine Mucus 07/27/19 07/27/19 07/28/19 19:40 20:25 05:55 WBC 6.0 RBC 3.58 L Hgb 11.3 L Hct 35.0 L MCV 97.8 MCH 31.6 MCHC 32.3 RDW Std Deviation 52.6 H RDW Coeff of [place] 14.6 Plt Count 211 MPV 10.5 Immature Gran % (Auto) 0.500 Neut % (Auto) 88.1 H Lymph % (Auto) 8.6 L [place] % (Auto) 2.5 Eos % (Auto) 0.0 Baso % (Auto) 0.3 Absolute Neuts (auto) 5.3 Absolute Lymphs (auto) 0.52 L Nucleated RBC % 0 PT INR D-Dimer Quant (PE/DVT) 0.94 H* Sodium Potassium Chloride Carbon Dioxide Anion Gap BUN Creatinine Estim Creat Clear Calc Est GFR (MDRD) Af Amer Est GFR (MDRD) Non-Af BUN/Creatinine Ratio Glucose Calcium Troponin I B-Natriuretic Peptide Urine Color Yellow Urine Clarity Clear Urine pH 6.0 Ur Specific [place] 1.015 Urine Protein 15 H Urine Glucose (UA) Normal Urine Ketones Negative Urine Occult Blood Negative Urine Nitrite Negative Urine Bilirubin Negative Urine Urobilinogen Normal Ur Leukocyte Esterase 25 H Urine RBC 0-5 SEEN Urine WBC 0 SEEN Ur Squamous Epith Cells 0 SEEN Urine Bacteria 0 SEEN Urine Mucus 0 SEEN 07/28/19 07/28/19 07/28/19 05:55 05:55 05:55 WBC RBC Hgb Hct MCV MCH MCHC RDW Std Deviation RDW Coeff of [place] Plt Count MPV Immature Gran % (Auto) Neut % (Auto) Lymph % (Auto) [place] % (Auto) Eos % (Auto) Baso % (Auto) Absolute Neuts (auto) Absolute Lymphs (auto) Nucleated RBC % PT 17.8 H INR 1.5 D-Dimer Quant (PE/DVT) Sodium 138 Potassium 4.0 Chloride 108 H Carbon Dioxide 28.0 Anion Gap 2 L BUN 15 Creatinine 1.02 Estim Creat Clear Calc 32.64 Est GFR (MDRD) Af Amer 67 Est GFR (MDRD) Non-Af 55 L BUN/Creatinine Ratio 14.7 Glucose 144 H Calcium 8.3 L Troponin I B-Natriuretic Peptide 1113.4 H Urine Color Urine Clarity Urine pH Ur Specific [place] Urine Protein Urine Glucose (UA) Urine Ketones Urine Occult Blood Urine Nitrite Urine Bilirubin Urine Urobilinogen Ur Leukocyte Esterase Urine RBC Urine WBC Ur Squamous Epith Cells Urine Bacteria Urine Mucus Clinical Impression(s) from Imaging Studies Chest X-Ray 07/27/19 19:30 IMPRESSION: Mild interstitial thickening in the right upper and left lower lobes possibly inflammatory changes. Clinical correlation recommended Electronically Signed: John Horner MD at 20:03 EDT , Service support , Chest CTA 07/27/19 21:22 IMPRESSION: Mild diffuse generalized interstitial thickening with emphysematous changes and multifocal groundglass opacities most pronounced in the upper lobes greater on the right. No evidence for pulmonary embolus. Electronically Signed: John Horner MD at 22:19 EDT , Service support , Assessment/Plan All Active Problems (Last Reviewed 02/18/19 @ 11:44 by Gary Bullard MD) Weakness (Acute) Chronic systolic (congestive) heart failure (Acute) RECOMMENDATIONS: 1. Consider a trial of diuretics under the discretion of cardiology. 2. Speech therapy evaluation. 3. Hold on antibiotics unless the patient were to develop a cough, fever or leukocytosis. 4. Wean supplemental oxygen to maintain saturations at or above 90%. 5. Encourage incentive spirometer use and mobilize patient as tolerated. IMPRESSIONS: 1. Acute hypoxemic respiratory failure While the patient presented with findings concerning for decompensated heart failure, her CT chest revealed groundglass changes bilaterally, which appeared to predominantly affect the upper lobes, right greater than left. She did not have significant pleural effusions. Nevertheless, given that her BNP is elevated and she has a history of combined systolic and diastolic heart failure, I would recommend gentle diuresis. In light of the patient's dysarthric speech and reported issues at times with swallowing, I would recommend that speech therapy be asked to evaluate the patient. In the absence of an elevated white blood count, fever or cough that is productive of sputum, I would not initiate antimicrobials at this time. 2. Acute on chronic combined systolic and diastolic heart failure Continue medical optimization under the discretion of cardiology, who has been consulted to evaluate the patient. 3. Advanced age and deconditioning/paroxysmal atrial fibrillation/hypothyroidism/depression/dementia/hypertension Complicates care, management, recovery and prognosis. Continue home medications as indicated. This note was generated with [employer] dictation software. It may contain incorrect words, spelling, and punctuation that were not noted in checking the note before signing. Code Visit Inpatient E&M: 68206 Init Hosp L3
--- NOTE | 2019-07-28 14:59 | CON.PCM_ITS ---
Problem List (1) Chronic systolic (congestive) heart failure Status: Acute Reason for Consult Date of Consultation: 07/28/19 History of Present Illness: The patient is an 83-year-old female, with a history as outlined below, who presented to the emergency department on July 27 with generalized weakness, confusion and hypoxemia. The patient does have a history of having been admitted to the hospital in November 2017 with acute respiratory failure. A CTA of the chest completed during that hospitalization revealed evidence of upper lobe predominant airspace opacities and small bilateral pleural effusions. The patient ultimately had to be transferred to [facility], where she was apparently treated for pneumonia and decompensated heart failure in the setting of atrial fibrillation with a rapid ventricular rate. She also has a known history of central sleep apnea, which has been managed previously in the past by Dr. Torres. The patient has had issues recently with chronic low back pain, for which she is followed by Dr. Meza of pain management. In light of treatment by him, the patient has become more ambulatory and active. The patient denies a prior smoking history. She does not vape. She denies any recent sick contact exposures. She denies the presence of a cough. She denies any recent weight gain. She does endorse some difficulty with swallowing some foods. However, she does not recall a neil aspiration event. On presentation to the emergency department, the patient was noted to be afebrile and hemodynamically stable. She was maintaining appropriate oxygen saturations initially on room air. Laboratory evaluation revealed no evidence of a leukocytosis. Coagulation profile was within normal limits. D-dimer was elevated to 0.94. Creatinine was mildly elevated to 1.24. Troponin was negative. BNP was elevated to 1113. A CTA chest was obtained which did not demonstrate evidence for PE. There was, however, evidence of groundglass interstitial changes bilaterally, which appeared most pronounced in the upper lobes, right greater than left. The patient was treated with nebs and IV steroids in the emergency department. She was subsequently admitted to the progressive care unit for further management. Surface echocardiogram last completed in May 2019 revealed normal LV size with an ejection fraction of 35% and stage II diastolic dysfunction. There is moderate to severe global hypokinesis of the LV. Pulmonary artery systolic pressure was estimated to be 38 mmHg. Patient was initially started on steroids and DuoNeb. Her BNP is around 1200. She is not the best historian but does say that she feels better now than when she came in to the ER. She is not a big fan of Lasix as she feels that it keeps her in the bathroom constantly. Review of systems: All systems reviewed. All else is negative except that in the HPI. [] Past Medical History Allergies/Adverse Reactions: Allergies Penicillins [PCN] Allergy (Verified 07/27/19 18:16) Rash Home Medications: Ambulatory Orders Medication Instructions Recorded Calcium Citrate/Vitamin D3 315 ea PO TIDCM 01/05/17 [Calcium Citrate - Vit D Caplet] Cholecalciferol (Vitamin D3) 2,000 unit PO DAILY 01/05/17 [Vitamin D3] Amiodarone HCl [Cordarone] 200 mg PO DAILY 10/06/18 Aspirin E.C. [Ecotrin] 81 mg PO DAILY 10/06/18 Dymista 1 puff NASAL BID PRN PRN 10/06/18 Cyanocobalamin (Vitamin B-12) 1,000 mcg PO DAILY 11/02/18 [B-12] levothyroxine 50 mcg capsule 50 mcg PO DAILY 02/18/19 warfarin 1 mg tablet 1.5 mg PO DAILY tab 03/04/19 cyclobenzaprine 5 mg tablet 5 mg PO BID tab 05/30/19 duloxetine 20 mg capsule,delayed 20 mg PO DAILY cap 05/30/19 release memantine 5 mg tablet 10 mg PO BID 05/30/19 carvedilol 6.25 mg tablet 6.25 mg PO BID #180 tab 06/22/19 Losartan Potassium 25 mg PO DAILY 07/27/19 Tramadol HCl/Acetaminophen 0 ea PO DAILY PRN PRN 07/27/19 [Ultracet Tablet] Past Medical History (Chronic Problems): Chronic Problems (Last Reviewed 02/18/19 @ 11:44 by Gary Bullard MD) Essential (primary) hypertension (Chronic) History of breast cancer (Chronic) 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) last ECHO with a 35 % EF Secondary pulmonary arterial hypertension (Chronic) Nonrheumatic aortic valve insufficiency (Chronic) Nonrheumatic mitral (valve) insufficiency (Chronic) Non-rheumatic tricuspid valve insufficiency (Chronic) Paroxysmal atrial fibrillation (Chronic) 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 - *Family History Maternal Family History: Family History (Last Reviewed 02/18/19 @ 11:44 by Gary Bullard MD) Grandmother Diabetes History Items: No pertinent history Paternal Family History: Family History (Last Reviewed 02/18/19 @ 11:44 by Gary Bullard MD) Grandmother Diabetes History Items: No pertinent history Smoking Status: Never smoker Alcohol: None Drugs: None Objective: Vital Signs Temp Pulse Resp BP Pulse Ox 97.6 F L 63 18 122/59 H 93 07/28/19 14:29 07/28/19 14:29 07/28/19 14:29 07/28/19 14:29 07/28/19 14:29 Oxygen Flow Rate (L/min) 2 Oxygen Delivery Method Nasal Cannula Weight: 137 lb 12.623 oz Body Mass Index (BMI) 26.0 Intake and Output for Last 24 Hours 07/26/19 07/27/19 07/28/19 23:59 23:59 23:59 Intake Total 1841.25 / 1841.25 Output Total 250 / 250 Balance 1591.25 / 1591.25 General: Awake, Alert, Oriented x 3 HEENT: Atraumatic Oral: Moist Mucosa Neck: Supple Lungs: - - Minimal crackles heard in the upper part of the lung david bilaterally Cardiovascular: Regular Rhythm Abdomen: Soft Extremities: No edema Skin: No Rashes Psych/Mental Status: Appropriate 07/27/19 19:40: WBC 6.3, RBC 3.83 L, Hgb 12.4, Hct 37.8, MCV 98.7, MCH 32.4 H, MCHC 32.8, Plt Count 226, MPV 10.4, Immature Gran % (Auto) 0.300, Neut % (Auto) 77.9 H, Lymph % (Auto) 11.5 L, [place] % (Auto) 7.3, Eos % (Auto) 2.4, Baso % (Auto) 0.6, Absolute Neuts (auto) 4.9, Nucleated RBC % 0 07/27/19 19:40: Sodium 139, Potassium 4.0, Chloride 104, Carbon Dioxide 29.0, Anion Gap 6, BUN 15, Creatinine 1.24 H, Est GFR (MDRD) Af Amer 53 L, Est GFR (MDRD) Non-Af 44 L, BUN/Creatinine Ratio 12.1, Glucose 108 H, Calcium 8.8, Troponin I < 0.015 07/27/19 19:40: PT 18.2 H, INR 1.5 07/27/19 19:40: D-Dimer Quant (PE/DVT) 0.94 H* 07/27/19 20:25: Urine Color Yellow, Urine Clarity Clear, Urine pH 6.0, Ur Specific [place] 1.015, Urine Protein 15 H, Urine Glucose (UA) Normal, Urine Ketones Negative, Urine Occult Blood Negative, Urine Nitrite Negative, Urine Bilirubin Negative, Urine Urobilinogen Normal, Ur Leukocyte Esterase 25 H, Urine RBC 0-5 SEEN, Urine WBC 0 SEEN 07/28/19 05:55: WBC 6.0, RBC 3.58 L, Hgb 11.3 L, Hct 35.0 L, MCV 97.8, MCH 31.6, MCHC 32.3, Plt Count 211, MPV 10.5, Immature Gran % (Auto) 0.500, Neut % (Auto) 88.1 H, Lymph % (Auto) 8.6 L, [place] % (Auto) 2.5, Eos % (Auto) 0.0, Baso % (Auto) 0.3, Absolute Neuts (auto) 5.3, Nucleated RBC % 0 07/28/19 05:55: PT 17.8 H, INR 1.5 07/28/19 05:55: Sodium 138, Potassium 4.0, Chloride 108 H, Carbon Dioxide 28.0, Anion Gap 2 L, BUN 15, Creatinine 1.02, Est GFR (MDRD) Af Amer 67, Est GFR (MDRD) Non-Af 55 L, BUN/Creatinine Ratio 14.7, Glucose 144 H, Calcium 8.3 L 07/28/19 05:55: B-Natriuretic Peptide 1113.4 H Rhythm: EKG: ECHO: Stress Test: Cardiac Cath: PCI: CT Surgery: Holter monitor: EPS: PPM: CXR: Chest CT Scan: Assessment/Plan Shortness of breath: Patient is not overtly volume overloaded. However her BNP is elevated and she is desaturating on room air. There is no clear alternate explanation for her desaturation at this time. I discussed giving her a trial of Lasix. Patient is reluctant but agreed to try 1 dose of Lasix. We will go ahead and give her 1 dose of IV Lasix and see if this helps her. Overall she is able to lie down flat and feels that her shortness of breath has improved significantly since arrival to the emergency room. LV dysfunction: Patient has EF of around 35% in May 2019. She is on carvedilol and losartan which she will continue. Atrial fibrillation: Patient has paroxysmal atrial fibrillation. Currently she is in sinus rhythm.
[2019-07-28] MEDS: Furosemide 20 MG/2 ML VIAL IV (15:08)
--- NOTE | 2019-07-28 16:39 | PCM.PROGNOTE ---
Patient Problems: Active and Suspected Problems (Last Reviewed 02/18/19 @ 11:44 by Gary Bullard MD) Weakness (Acute) Subjective: Patient was seen and examined today, I talked extensively with her who was in the room today. requested pulmonary and cardiology consultation, I talked with both pulmonary medicine and cardiology today concerning her care. Patient's beta natruretic peptide was ordered this morning and was elevated, I felt it was possible the patient had a component of congestive heart failure, cardiology felt less sure that the patient had significant CHF but decided to give the patient a one-time dose of IV Lasix. Pulmonary medicine requested that we have speech therapy see the patient for possible evidence of aspiration. Pulmonary medicine did not recommend the patient be placed on antibiotics at this time. I have decided to stop the patient's IV Solu-Medrol and aerosol treatments at this time. - Physical Exam General: Alert, Cooperative, No apparent distress, Well developed HEENT: Atraumatic, PERRLA, EOMI, Normocephalic Oral: Moist Mucosa Neck: Supple, Trachea Midline, Thyroid Normal Size and Texture Lungs: Normal air movement, Rales - Inspiratory rales are noted at the patient's Right Upper Lung Fld. and Left Lower Lung Fld. Cardiovascular: Regular rate, Regular Rhythm, Normal S1, Normal S2, No murmurs, PMI Normal, No rub noted Abdomen: Bowel Sounds Present, Soft, Non Tender, Non-Distended Extremities: No clubbing, No cyanosis, No edema, Capillary Refill Less than 3 Seconds Skin: No rashes, No breakdown Musculoskeletal: No Tenderness to Palpation of Joints or Extremities Neurological: Cranial nerves II-XII grossly intact, Neuro grossly intact, Sensory exam intact to light touch and pain Psych/Mental Status: - - Patient is alert, she does not appear in any distress, she answers simple questions appropriately, she exhibits moderate confusion Vital Signs Temp Pulse Resp BP Pulse Ox 97.6 F L 63 18 122/59 H 93 07/28/19 14:29 07/28/19 14:29 07/28/19 14:29 07/28/19 14:07/28/19 14:29 Oxygen Flow Rate (L/min) 2 Oxygen Delivery Method Nasal Cannula Weight: 62.5 kg Body Mass Index (BMI) 26.0 Intake and Output for Last 24 Hours 09/07/27/19 07/28/19 23:59 23:59 23:59 Intake Total 1841.25 / 1841.25 Output Total 250 / 250 Balance 1591.25 / 1591.25 Laboratory Tests Past 24 Hrs 07/27/19 07/27/19 07/27/19 19:40 19:40 19:40 WBC 6.3 RBC 3.83 L Hgb 12.4 Hct 37.8 MCV 98.7 MCH 32.4 H MCHC 32.8 RDW Std Deviation 53.9 H RDW Coeff of Silvano 14.7 H Plt Count 226 MPV 10.4 Immature Gran % (Auto) 0.300 Neut % (Auto) 77.9 H Lymph % (Auto) 11.5 L [place] % (Auto) 7.3 Eos % (Auto) 2.4 Baso % (Auto) 0.6 Absolute Neuts (auto) 4.9 Absolute Lymphs (auto) 0.72 L Nucleated RBC % 0 PT 18.2 H INR 1.5 D-Dimer Quant (PE/DVT) Sodium 139 Potassium 4.0 Chloride 104 Carbon Dioxide 29.0 Anion Gap 6 BUN 15 Creatinine 1.24 H Estim Creat Clear Calc 28.14 Est GFR (MDRD) Af Amer 53 L Est GFR (MDRD) Non-Af 44 L BUN/Creatinine Ratio 12.1 Glucose 108 H Calcium 8.8 Troponin I < 0.015 B-Natriuretic Peptide Urine Color Urine Clarity Urine pH Ur Specific [place] Urine Protein Urine Glucose (UA) Urine Ketones Urine Occult Blood Urine Nitrite Urine Bilirubin Urine Urobilinogen Ur Leukocyte Esterase Urine RBC Urine WBC Ur Squamous Epith Cells Urine Bacteria Urine Mucus 07/27/19 07/27/19 07/28/19 19:40 20:25 05:55 WBC 6.0 RBC 3.58 L Hgb 11.3 L Hct 35.0 L MCV 97.8 MCH 31.6 MCHC 32.3 RDW Std Deviation 52.6 H RDW Coeff of [place] 14.6 Plt Count 211 MPV 10.5 Immature Gran % (Auto) 0.500 Neut % (Auto) 88.1 H Lymph % (Auto) 8.6 L [place] % (Auto) 2.5 Eos % (Auto) 0.0 Baso % (Auto) 0.3 Absolute Neuts (auto) 5.3 Absolute Lymphs (auto) 0.52 L Nucleated RBC % 0 PT INR D-Dimer Quant (PE/DVT) 0.94 H* Sodium Potassium Chloride Carbon Dioxide Anion Gap BUN Creatinine Estim Creat Clear Calc Est GFR (MDRD) Af Amer Est GFR (MDRD) Non-Af BUN/Creatinine Ratio Glucose Calcium Troponin I B-Natriuretic Peptide Urine Color Yellow Urine Clarity Clear Urine pH 6.0 Ur Specific [place] 1.015 Urine Protein 15 H Urine Glucose (UA) Normal Urine Ketones Negative Urine Occult Blood Negative Urine Nitrite Negative Urine Bilirubin Negative Urine Urobilinogen Normal Ur Leukocyte Esterase 25 H Urine RBC 0-5 SEEN Urine WBC 0 SEEN Ur Squamous Epith Cells 0 SEEN Urine Bacteria 0 SEEN Urine Mucus 0 SEEN 07/28/19 07/28/19 07/28/19 05:55 05:55 05:55 WBC RBC Hgb Hct MCV MCH MCHC RDW Std Deviation RDW Coeff of [place] Plt Count MPV Immature Gran % (Auto) Neut % (Auto) Lymph % (Auto) [place] % (Auto) Eos % (Auto) Baso % (Auto) Absolute Neuts (auto) Absolute Lymphs (auto) Nucleated RBC % PT 17.8 H INR 1.5 D-Dimer Quant (PE/DVT) Sodium 138 Potassium 4.0 Chloride 108 H Carbon Dioxide 28.0 Anion Gap 2 L BUN 15 Creatinine 1.02 Estim Creat Clear Calc 32.64 Est GFR (MDRD) Af Amer 67 Est GFR (MDRD) Non-Af 55 L BUN/Creatinine Ratio 14.7 Glucose 144 H Calcium 8.3 L Troponin I B-Natriuretic Peptide 1113.4 H Urine Color Urine Clarity Urine pH Ur Specific [place] Urine Protein Urine Glucose (UA) Urine Ketones Urine Occult Blood Urine Nitrite Urine Bilirubin Urine Urobilinogen Ur Leukocyte Esterase Urine RBC Urine WBC Ur Squamous Epith Cells Urine Bacteria Urine Mucus Medical Necessity - Tobacco Use Smoking Status: Never smoker Assessment/Plan All Active Problems (Last Reviewed 02/18/19 @ 11:44 by Gary Bullard MD) Weakness (Acute) Chronic systolic (congestive) heart failure (Acute) #1 acute hypoxic respiratory failure-etiology unclear at this point, could be possibly secondary to systolic CHF-cardiology has ordered a trial of IV Lasix-1 dose was given to the patient today. We will continue to monitor the patient and try to wean her oxygen. #2 generalized debility-probably secondary to hypoxia with a backdrop of dementia, PT and OT will continue to see the patient #3 urinary retention-patient complained of urinary discomfort today, it was found that she was holding 500 cc of urine in her bladder, patient requested that she be allowed to try to void again and she was able to void approximately 250 cc of urine. I decided to place the patient on Flomax 0.4 mg daily at this time. #4 dementia #5 hypertensive dilated cardiomyopathy-EF 35% #6 paroxysmal atrial fibrillation-currently in sinus rhythm-patient's requested the patient be changed from Coumadin to Eliquis due to the fact the patient has difficulty maintaining a therapeutic INR. I have placed the patient on Eliquis 2.5 mg twice a day, patient's requested the patient be placed on the lowest dose permissible-patient's weight currently is 62-1/2 kg, her age is 83 and I feel that she is close to requiring 2.5 mg Eliquis twice daily rather than 5 mg twice daily. Patient's Coumadin was stopped #7 possible decompensated chronic systolic congestive heart failure-again cardiology is participating in her care #8 hypertension Code Visit Inpatient E&M: 31870 Subs Hosp L2
[2019-07-28] MEDS: APIXABAN 2.5 MG TABLET PO (21:39)
[2019-07-29] VITALS (14 sets, daily range): BP systolic 88–132; BP diastolic 40–91; PULSE 57–80; RESP 14–18; TEMP 36.4–36.9; O2SAT 91–96
[2019-07-29] MEDS: Acetaminophen 325 MG Tablet 650 MG PO (05:31)
[2019-07-29] MEDS: Levothyroxine 50 MCG Tablet PO (05:31)
[2019-07-29 05:58] LABS: International Normalized Ratio 1.7; Prothrombin Time (Protime)PT. 20.1 SECONDS (11.7-14.9)
--- NOTE | 2019-07-29 06:42 | PCM.PN.PUL ---
Patient Problems: Active and Suspected Problems (Last Reviewed 02/18/19 @ 11:44 by Gary Bullard MD) Weakness (Acute) Subjective: The patient was seen and examined at the bedside this morning. Events from the last 24 hours have been reviewed. The patient is currently afebrile, hemodynamically stable and maintaining appropriate oxygen saturations on 2 L/min via nasal cannula. The patient did receive a one-time IV Lasix dose yesterday. This morning, the patient reports a great deal of back pain. She seems concerned about being administered more lasix. Objective: The patient's most recent lab work, culture data and imaging studies have all been personally reviewed. - Physical Exam General: Alert, Cooperative, No apparent distress, - - Sitting in bedside recliner. HEENT: Atraumatic, PERRLA, Normocephalic Oral: No Gingival or Mucosal Lesions/ Ulcerations Neck: Supple, No Nodes, Trachea Midline Lungs: - - Rales present in B/L upper lobes and left lower lobe. Cardiovascular: Regular rate, Regular Rhythm, Normal S1, Normal S2 Abdomen: Bowel Sounds Present, Soft, Non Tender Extremities: No clubbing, No cyanosis, No edema Skin: No breakdown Musculoskeletal: Arthritic Changes Lymphatic: No Cervical, Supraclavicular, or Inguinal Adenopathy Neurological: - - No focal neurological deficits. Psych/Mental Status: Normal Affect, Appropriate Vital Signs Temp Pulse Resp BP Pulse Ox 97.5 F L 80 18 132/91 H 92 07/29/19 05:25 07/29/19 05:25 07/29/19 05:25 07/29/19 05:25 07/29/19 05:25 Oxygen Flow Rate (L/min) 2 Oxygen Delivery Method Nasal Cannula Weight: 137 lb 12.623 oz Body Mass Index (BMI) 26.0 Intake and Output for Last 24 Hours 07/27/19 07/28/19 07/29/19 23:59 23:59 23:59 Intake Total 1916.25 / 1916.25 50 / 50 Output Total 600 / 600 150 / 150 Balance 1316.25 / 1316.25 -100 / -100 Laboratory Tests Past 24 Hrs 07/28/19 07/29/19 05:55 04:54 PT 20.1 H INR 1.7 B-Natriuretic Peptide 1113.4 H Labs (Last 48 Hours) 07/27/19 07/27/19 07/27/19 19:40 19:40 19:40 WBC 6.3 RBC 3.83 L Hgb 12.4 Hct 37.8 MCV 98.7 MCH 32.4 H MCHC 32.8 RDW Std Deviation 53.9 H RDW Coeff of Silvano 14.7 H Plt Count 226 MPV 10.4 Immature Gran % (Auto) 0.300 Neut % (Auto) 77.9 H Lymph % (Auto) 11.5 L [place] % (Auto) 7.3 Eos % (Auto) 2.4 Baso % (Auto) 0.6 Absolute Neuts (auto) 4.9 Absolute Lymphs (auto) 0.72 L Nucleated RBC % 0 PT 18.2 H INR 1.5 D-Dimer Quant (PE/DVT) Sodium 139 Potassium 4.0 Chloride 104 Carbon Dioxide 29.0 Anion Gap 6 BUN 15 Creatinine 1.24 H Estim Creat Clear Calc 28.14 Est GFR (MDRD) Af Amer 53 L Est GFR (MDRD) Non-Af 44 L BUN/Creatinine Ratio 12.1 Glucose 108 H Calcium 8.8 Troponin I < 0.015 B-Natriuretic Peptide Urine Color Urine Clarity Urine pH Ur Specific [place] Urine Protein Urine Glucose (UA) Urine Ketones Urine Occult Blood Urine Nitrite Urine Bilirubin Urine Urobilinogen Ur Leukocyte Esterase Urine RBC Urine WBC Ur Squamous Epith Cells Urine Bacteria Urine Mucus 07/27/19 07/27/19 07/28/19 19:40 20:25 05:55 WBC 6.0 RBC 3.58 L Hgb 11.3 L Hct 35.0 L MCV 97.8 MCH 31.6 MCHC 32.3 RDW Std Deviation 52.6 H RDW Coeff of Silv[place] 14.6 Plt Count 211 MPV 10.5 Immature Gran % (Auto) 0.500 Neut % (Auto) 88.1 H Lymph % (Auto) 8.6 L [place] % (Auto) 2.5 Eos % (Auto) 0.0 Baso % (Auto) 0.3 Absolute Neuts (auto) 5.3 Absolute Lymphs (auto) 0.52 L Nucleated RBC % 0 PT INR D-Dimer Quant (PE/DVT) 0.94 H* Sodium Potassium Chloride Carbon Dioxide Anion Gap BUN Creatinine Estim Creat Clear Calc Est GFR (MDRD) Af Amer Est GFR (MDRD) Non-Af BUN/Creatinine Ratio Glucose Calcium Troponin I B-Natriuretic Peptide Urine Color Yellow Urine Clarity Clear Urine pH 6.0 Ur Specific [place] 1.015 Urine Protein 15 H Urine Glucose (UA) Normal Urine Ketones Negative Urine Occult Blood Negative Urine Nitrite Negative Urine Bilirubin Negative Urine Urobilinogen Normal Ur Leukocyte Esterase 25 H Urine RBC 0-5 SEEN Urine WBC 0 SEEN Ur Squamous Epith Cells 0 SEEN Urine Bacteria 0 SEEN Urine Mucus 0 SEEN 07/28/19 07/28/19 07/28/19 05:55 05:55 05:55 WBC RBC Hgb Hct MCV MCH MCHC RDW Std Deviation RDW Coeff of Silv[place] Plt Count MPV Immature Gran % (Auto) Neut % (Auto) Lymph % (Auto) [place] % (Auto) Eos % (Auto) Baso % (Auto) Absolute Neuts (auto) Absolute Lymphs (auto) Nucleated RBC % PT 17.8 H INR 1.5 D-Dimer Quant (PE/DVT) Sodium 138 Potassium 4.0 Chloride 108 H Carbon Dioxide 28.0 Anion Gap 2 L BUN 15 Creatinine 1.02 Estim Creat Clear Calc 32.64 Est GFR (MDRD) Af Amer 67 Est GFR (MDRD) Non-Af 55 L BUN/Creatinine Ratio 14.7 Glucose 144 H Calcium 8.3 L Troponin I B-Natriuretic Peptide 1113.4 H Urine Color Urine Clarity Urine pH Ur Specific [place] Urine Protein Urine Glucose (UA) Urine Ketones Urine Occult Blood Urine Nitrite Urine Bilirubin Urine Urobilinogen Ur Leukocyte Esterase Urine RBC Urine WBC Ur Squamous Epith Cells Urine Bacteria Urine Mucus 07/29/19 04:54 WBC RBC Hgb Hct MCV MCH MCHC RDW Std Deviation RDW Coeff of Silvano Plt Count MPV Immature Gran % (Auto) Neut % (Auto) Lymph % (Auto) [place] % (Auto) Eos % (Auto) Baso % (Auto) Absolute Neuts (auto) Absolute Lymphs (auto) Nucleated RBC % PT 20.1 H INR 1.7 D-Dimer Quant (PE/DVT) Sodium Potassium Chloride Carbon Dioxide Anion Gap BUN Creatinine Estim Creat Clear Calc Est GFR (MDRD) Af Amer Est GFR (MDRD) Non-Af BUN/Creatinine Ratio Glucose Calcium Troponin I B-Natriuretic Peptide Urine Color Urine Clarity Urine pH Ur Specific [place] Urine Protein Urine Glucose (UA) Urine Ketones Urine Occult Blood Urine Nitrite Urine Bilirubin Urine Urobilinogen Ur Leukocyte Esterase Urine RBC Urine WBC Ur Squamous Epith Cells Urine Bacteria Urine Mucus Clinical Impression(s) from Imaging Studies Chest X-Ray 07/27/19 19:30 IMPRESSION: Mild interstitial thickening in the right upper and left lower lobes possibly inflammatory changes. Clinical correlation recommended Electronically Signed: John Horner MD at 20:03 EDT , Service support , Chest CTA 07/27/19 21:22 IMPRESSION: Mild diffuse generalized interstitial thickening with emphysematous changes and multifocal groundglass opacities most pronounced in the upper lobes greater on the right. No evidence for pulmonary embolus. Electronically Signed: John Horner MD at 22:19 EDT , Service support , Medical Necessity - Tobacco Use Smoking Status: Never smoker Assessment/Plan All Active Problems (Last Reviewed 02/18/19 @ 11:44 by Gary Bullard MD) Weakness (Acute) Chronic systolic (congestive) heart failure (Acute) RECOMMENDATIONS: 1. Continue gentle diuresis per cardiology recommendations. 2. Hold on antibiotics unless the patient were to develop a cough, fever or leukocytosis. 3. Wean supplemental oxygen to maintain saturations at or above 90%. 4. Encourage incentive spirometer use and mobilize patient as tolerated. IMPRESSIONS: 1. Acute hypoxemic respiratory failure While the patient presented with findings concerning for decompensated heart failure, her CT chest revealed groundglass changes bilaterally, which appeared to predominantly affect the upper lobes, right greater than left. She did not have significant pleural effusions. Nevertheless, given that her BNP is elevated and she has a history of combined systolic and diastolic heart failure, I would recommend gentle diuresis. In the absence of an elevated white blood count, fever or cough that is productive of sputum, I would not initiate antimicrobials at this time. 2. Acute on chronic combined systolic and diastolic heart failure Continue medical optimization under the discretion of cardiology. 3. Advanced age and deconditioning/paroxysmal atrial fibrillation/hypothyroidism/depression/dementia/hypertension Complicates care, management, recovery and prognosis. Continue home medications as indicated. This note was generated with [employer] software. It may contain incorrect words, spelling, and punctuation that were not noted in checking the note before signing. Code Visit Inpatient E&M: 67107 Subs Hosp L2
--- NOTE | 2019-07-29 07:53 | PN.CARD_ITS ---
Subjectve: Patient seen and evaluated. Appears to be short of breath this morning. Is wheezing a little bit. Objective: Vital Signs Temp Pulse Resp BP Pulse Ox 97.5 F L 80 18 132/91 H 92 07/29/19 05:25 07/29/19 05:25 07/29/19 05:25 07/29/19 05:25 07/29/19 05:25 Oxygen Flow Rate (L/min) 2 Oxygen Delivery Method Nasal Cannula Weight: 137 lb 12.623 oz Body Mass Index (BMI) 26.0 Intake and Output for Last 24 Hours 07/27/19 07/28/19 07/29/19 23:59 23:59 23:59 Intake Total 1916.25 / 1916.25 50 / 50 Output Total 600 / 600 150 / 150 Balance 1316.25 / 1316.25 -100 / -100 General: Awake, Alert, Oriented x 3 HEENT: PERRL, EOMI, Sclera Non Icteric Neck: Supple, Good ROM, No Lymph Node Enlargement Lungs: Expiratory Wheezes-Micha Cardiovascular: Regular Rhythm, Normal S1, Normal S2, No Murmurs, No Rubs, No Gallops Vascular: No Carotid Bruits, Normal Femoral Pulses, Normal Radial Pulses, Normal Dorsalis Pedal Pulse, Normal Posterior Tibial Pulses Abdomen: Bowel Sounds Present, Soft, Non Tender, No HSM, No Organomegaly Extremities: No Cyanosis, No Clubbing, No edema Musculoskeletal: No Erythema Skin: No Rashes Lymphatic: No Lymph Node Enlargement Neurological: No Focal Motor or Sensory Deficit Psych/Mental Status: Appropriate 07/28/19 05:55: B-Natriuretic Peptide 1113.4 H 07/29/19 04:54: PT 20.1 H, INR 1.7 Rhythm: EKG: ECHO: Stress Test: Cardiac Cath: PCI: CT Surgery: Holter monitor: EPS: PPM: CXR: Chest CT Scan: Medical Necessity - Tobacco Use Smoking Status: Never smoker Assessment/Plan 1. Cardiomyopathy in diseases classified elsewhere I43 last ECHO with a 35 % EF Her most recent echocardiogram from May 2019 showed ejection fraction of 35% and a global longitudinal strain of -10.9% (abnormal). Patient denies any sym ptoms of acute congestive heart failure. She will continue current medications and we will continue to monitor. Given that her ejection fraction is 35% it was recommended to consider prophylaxis AICD. They are hesitant at this time but will discuss further. They will contact her office if they would like to proceed with AICD placement. 2. Essential (primary) hypertension I10 Her blood pressure is well controlled today. Her home blood pressure readings have been stable as well with the pattern of higher blood pressures at suppertime and bedtime. Her morning blood pressures ranged from systolics 110s to 130s. Her evening blood pressure ranged from 130s to 150s systolic. She was asked to change her losartan to 50 mg p.o. twice daily in hopes to improve fitting blood pressure. Her states that they did not start amlodipine due to concerns of orthostatic hypotension at times. They were asked to continue to monitor with her blood pressure closely and contact our office if there is any new concerns. 3. Paroxysmal atrial fibrillation I48.0 Plan She appears to maintain regular rhythm. Her heart rate is well controlled. She will continue with beta-claudine and antiarrhythmic medication. She will continue with Coumadin therapy maintain INR goal 2?3. Previous laboratory work was reviewed since December 2013. It appears that patient's kidney function, creatinine level, has ranged from approximately 1.1- 1.7. This is consistent with her most recent laboratory evaluation from March 2019. 4. Chronic systolic (congestive) heart failure I50.22 She appears to have an exacerbation of the above. She is on the beta-claudine and ARB. She did receive some diuretics and it appears that she may need to be on diuretics henceforth. We may be able to put her on 40 mg daily. She is without acute symptoms of congestive heart failure. She will continue with beta-claudine and ARB medication. 5. Nonrheumatic mitral (valve) insufficiency I34.0 Plan Her most recent echocardiogram from May 2019 showed mild mitral valve ins ufficiency. She will continue current medications and we will continue to monitor through history, exam, and repeat echocardiogram as needed. 6. Non-rheumatic tricuspid valve insufficiency I36.1 Plan Her echocardiogram showed mild tricuspid valve insufficiency. She will continue current medications and we will continue to monitor through history, exam, and repeat echocardiogram. 7. Nonrheumatic aortic valve insufficiency I35.1 Plan Her echocardiogram from May 2019 showed mild aortic valve insufficiency. This too appears stable. She will continue current medications and we will continue monitor through history, exam, repeat echocardiogram as needed. 8. alf (current) use of anticoagulants Z79.01 Plan She will continue with Coumadin therapy maintain INR goal of 2?3. Thank you for allowing me to participate in the care of your patient. Please don't hesitate to call if any issues arise
[2019-07-29] MEDS: Furosemide 40 MG/4 ML Vial IV (09:48)
[2019-07-29] MEDS: DULoxetine Hcl 20 MG Capsule PO (09:48)
[2019-07-29] MEDS: Amiodarone 200 MG Tablet PO (09:48)
[2019-07-29] MEDS: Aspirin E.C. 81 MG Tablet PO (09:48)
[2019-07-29] MEDS: Losartan Potassium 25 MG Tablet PO (09:48)
[2019-07-29] MEDS: cycloBENZAPRine HCl 5 MG TABLET PO ×2 (09:48→21:55)
[2019-07-29] MEDS: Memantine Hydrochloride 10 MG Tablet PO ×2 (09:48→21:55)
[2019-07-29] MEDS: APIXABAN 2.5 MG TABLET PO ×2 (09:49→21:55)
[2019-07-29] MEDS: Carvedilol 6.25 MG Tablet PO ×2 (09:49→21:55)
[2019-07-29] MEDS: Tamsulosin HCl 0.4 MG Capsule PO (09:49)
[2019-07-29] MEDS: traMADol 50 MG Tablet 75 MG PO (11:35)
--- NOTE | 2019-07-29 18:31 | PN_ITS ---
Patient Problems: Active and Suspected Problems (Last Reviewed 02/18/19 @ 11:44 by Gary Bullard MD) Weakness (Acute) Subjective: Patient was seen and examined today, cardiology administered further doses of Lasix today, this afternoon patient's systolic blood pressure was low, for now further Lasix doses will be held. Patient appears more comfortable breathing, she is currently only using 2 L of nasal cannula O2. Talked at length with the patient's who is in the room today during the time of my examination Objective: General: Alert, Cooperative, No apparent distress, Well developed HEENT: Atraumatic, PERRLA, EOMI, Normocephalic Oral: Moist Mucosa Neck: Supple, Trachea Midline, Thyroid Normal Size and Texture Lungs: Normal air movement, Rales - Inspiratory rales are noted at the patient's Right Upper Lung Fld. and Left Lower Lung Fld. Cardiovascular: Regular rate, Regular Rhythm, Normal S1, Normal S2, No murmurs, PMI Normal, No rub noted Abdomen: Bowel Sounds Present, Soft, Non Tender, Non-Distended Extremities: No clubbing, No cyanosis, No edema, Capillary Refill Less than 3 Seconds Skin: No rashes, No breakdown Musculoskeletal: No Tenderness to Palpation of Joints or Extremities Neurological: Cranial nerves II-XII grossly intact, Neuro grossly intact, Sensory exam intact to light touch and pain Psych/Mental Status: - - Patient is alert, she does not appear in any distress, she answers simple questions appropriately, she exhibits moderate confusion - Physical Exam Vital Signs Temp Pulse Resp BP Pulse Ox 97.9 F 65 16 113/52 L 95 07/29/19 16:00 07/29/19 16:00 07/29/19 16:00 07/29/19 16:00 07/29/19 16:00 Oxygen Flow Rate (L/min) 2 Oxygen Delivery Method Nasal Cannula Weight: 62.5 kg Body Mass Index (BMI) 26.0 Intake and Output for Last 24 Hours 07/27/19 07/28/19 07/29/19 23:59 23:59 23:59 Intake Total 1916.25 / 1916.25 400 / 400 Output Total 600 / 600 550 / 550 Balance 1316.25 / 1316.25 -150 / -150 Laboratory Tests Past 24 Hrs 07/29/19 04:54 PT 20.1 H INR 1.7 Medical Necessity - Tobacco Use Smoking Status: Never smoker Assessment/Plan All Active Problems (Last Reviewed 02/18/19 @ 11:44 by Gary Bullard MD) Weakness (Acute) Chronic systolic (congestive) heart failure (Acute) #1 acute hypoxic respiratory failure-probably secondary to systolic congestive heart failure-continue current treatment, cardiology is adjusting patient's diur etics, BMP will be repeated tomorrow, patient will have a repeat chest x-ray tomorrow, continue to wean oxygen if able #2 generalized debility-probably secondary to hypoxia with a backdrop of dementi a, PT and OT will continue to see the patient #3 urinary retention-patient is currently on Flomax and has no complaints of any urinary hesitancy #4 dementia #5 hypertensive dilated cardiomyopathy-EF 35% #6 paroxysmal atrial fibrillation-patient is currently on Eliquis #7 decompensated chronic systolic congestive heart failure-again cardiology is participating in her care and adjusting her diuretics #8 hypertension Code Visit Inpatient E&M: 43059 Subs Hosp L2
[2019-07-30] VITALS (16 sets, daily range): BP systolic 112–119; BP diastolic 40–55; PULSE 63–74; RESP 16–24; TEMP 36.7–37.1; O2SAT 87–98
[2019-07-30] MEDS: Levothyroxine 50 MCG Tablet PO (05:25)
--- NOTE | 2019-07-30 05:55 | RAD_ITS ---
HISTORY: CHF Congestive Heart Failure ADDITIONAL HISTORY: None provided. COMPARISON: 07/27/[address] TECHNIQUE: Frontal chest radiograph. Number of images including paperwork: 2 FINDINGS: LUNGS AND PLEURA: Increasing bilateral mixed interstitial and airspace opacities. Blunting of the left costophrenic angle suggesting small pleural effusion. CARDIAC SILHOUETTE: Stable. MEDIASTINUM AND MARIO: Aortic tortuosity. UPPER ABDOMEN: Unremarkable. SKELETON AND SOFT TISSUES: No acute findings. Degenerative changes. OTHER DEVICES AND HARDWARE: None. RAD/Chest 1 View (Portable) IMPRESSION: Increasing bilateral infiltrates, asymmetric and possibly related to infection or other cause of interstitial pneumonitis. Asymmetric edema felt to be less likely given the distribution.. at 0630 Reported and signed by: Sharon Roldan MD Electronically Signed: Sharon Roldan MD at 6:30 EDT Tel , Service support ,
--- NOTE | 2019-07-30 06:57 | PCM.PN.PUL ---
Patient Problems: Active and Suspected Problems (Last Reviewed 02/18/19 @ 11:44 by Gary Bullard MD) Weakness (Acute) Subjective: The patient was seen and examined at the bedside this morning. Events from the last 24 hours have been reviewed. The patient is currently afebrile, hemodynamically stable and maintaining appropriate oxygen saturations on 3 L/min via nasal cannula. The patient was given a one-time dose of IV Lasix 40 mg yesterday. Plain film chest x-ray obtained this morning was personally reviewed and revealed worsening bilateral airspace disease, with an upper lobe predominance. Despite this, the patient denies any resting shortness of breath. When questioned about a cough, she stated I coughed once a little while ago but did not bring up anything. Objective: The patient's most recent lab work, culture data and imaging studies have all been personally reviewed. - Physical Exam General: Alert, Cooperative, No apparent distress HEENT: Atraumatic, PERRLA, Normocephalic Oral: No Gingival or Mucosal Lesions/ Ulcerations Neck: Supple, No Nodes, Trachea Midline Lungs: No rhonchi, No wheeze, Rales Cardiovascular: Regular rate, Regular Rhythm, Normal S1, Normal S2 Abdomen: Bowel Sounds Present, Soft, Non Tender Extremities: No clubbing, No cyanosis, No edema Skin: No breakdown Musculoskeletal: No Tenderness to Palpation of Joints or Extremities Lymphatic: No Cervical, Supraclavicular, or Inguinal Adenopathy Neurological: Neuro grossly intact Psych/Mental Status: Normal Affect, Appropriate Vital Signs Temp Pulse Resp BP Pulse Ox 98.8 F 63 18 119/52 L 92 07/30/19 03:54 07/30/19 03:54 07/30/19 03:54 07/30/19 03:54 07/30/19 03:54 Oxygen Flow Rate (L/min) 4 Oxygen Delivery Method Nasal Cannula Weight: 137 lb 12.623 oz Body Mass Index (BMI) 26.0 Intake and Output for Last 24 Hours 07/28/19 07/29/19 07/30/19 23:59 23:59 23:59 Intake Total 1916.25 / 1916.25 400 / 400 Output Total 600 / 600 550 / 550 200 / 200 Balance 1316.25 / 1316.25 -150 / -150 -200 / -200 Labs (Last 48 Hours) 07/28/19 07/29/19 05:55 04:54 PT 20.1 H INR 1.7 B-Natriuretic Peptide 1113.4 H Clinical Impression(s) from Imaging Studies Chest X-Ray 07/27/19 19:30 IMPRESSION: Mild interstitial thickening in the right upper and left lower lobes possibly inflammatory changes. Clinical correlation recommended Electronically Signed: John Horner MD at 20:03 EDT , Service support , Chest CTA 07/27/19 21:22 IMPRESSION: Mild diffuse generalized interstitial thickening with emphysematous changes and multifocal groundglass opacities most pronounced in the upper lobes greater on the right. No evidence for pulmonary embolus. Electronically Signed: John Horner MD at 22:19 EDT , Service support , Chest X-Ray 07/30/19 05:55 IMPRESSION: Increasing bilateral infiltrates, asymmetric and possibly related to infection or other cause of interstitial pneumonitis. Asymmetric edema felt to be less likely given the distribution.. at 0630 Reported and signed by: Sharon Roldan MD Electronically Signed: Sharon Roldan MD at 6:30 EDT Tel , Service support , Medical Necessity - Tobacco Use Smoking Status: Never smoker Assessment/Plan All Active Problems (Last Reviewed 02/18/19 @ 11:44 by Gary Bullard MD) Weakness (Acute) Chronic systolic (congestive) heart failure (Acute) RECOMMENDATIONS: 1. Continue gentle diuresis per cardiology recommendations. 2. Hold on antibiotics unless the patient were to develop a cough, fever or leukocytosis. 3. Wean supplemental oxygen to maintain saturations at or above 90%. 4. Encourage incentive spirometer use and mobilize patient as tolerated. IMPRESSIONS: 1. Acute hypoxemic respiratory failure While the patient presented with findings concerning for decompensated heart failure, her CT chest revealed groundglass changes bilaterally, which appeared to predominantly affect the upper lobes, right greater than left. She did not have significant pleural effusions. Nevertheless, given that her BNP is elevated and she has a history of combined systolic and diastolic heart failure, I would recommend gentle diuresis. In the absence of an elevated white blood count, fever or cough that is productive of sputum, I would not initiate antimicrobials at this time. If the patient does not respond to the use of diuretics, would need to consider additional work-up, including potential bronchoscopy, to evaluate for infectious etiologies like nontuberculous mycobacterial infection or potential idiopathic interstitial pneumonias. 2. Acute on chronic combined systolic and diastolic heart failure Continue medical optimization under the discretion of cardiology. 3. Advanced age and deconditioning/paroxysmal atrial fibrillation/hypothyroidism/depression/dementia/hypertension Complicates care, management, recovery and prognosis. Continue home medications as indicated. This note was generated with [employer] software. It may contain incorrect words, spelling, and punctuation that were not noted in checking the note before signing.
[2019-07-30 07:17] LABS: Absolute Lymphocyte Count 0.88 X10^3/uL (0.83-4.51); Basophil# 0.04 X10^3/uL; Basophil% 0.5 % (0-1); Eosinophil# 0.26 X10^3/uL; Hematocrit 36.7 % (37-47); Hemoglobin 11.7 g/dL (12.0-15.0); Lymphocyte # 0.88 X10^3/ul (4.0); Mean Corp Hgb Conc 31.9 g/dL (32-36); Mean Corpuscular Hgb 31.6 pg (27.0-32.0); Mean Corpuscular Volume 99.2 fL (81-99); Mean Platelet Vol. 11.1 fl (6.2-12.0); Monocyte# 0.55 X10^3/uL; Monocyte% 6.3 % (0-10); NRBC Flagged by Analyzer 0 % (0-5); Neutrophil # 6.98 X10^3/uL (2.7-7.7); Neutrophil % 79.6 % (47-70); Platelet Count 276 K/mm3 (150-450); RBC Distribution Width SD 54.5 fl (35.1-43.9); White Blood Count 8.8 K/mm3 (4.4-11.0)
[2019-07-30 07:34] LABS: Anion Gap 8 (5-15); BUN 20 mg/dL (7-18); BUN/Creat Ratio 17.7 RATIO (10-20); Calcium,Total 8.6 mg/dL (8.5-10.1); Chloride 109 mmol/L (98-107); Creatinine, Serum 1.13 mg/dL (0.55-1.02); EST Glomerular Filtration Rate 49 mL/min (>60); Est Glom Filt Rate - Afr Amer 59 mL/min (>60); Estimated Creatinine Clearance 29.46 ml/min; Glucose 93 mg/dL (74-106); Potassium 3.5 mmol/L (3.5-5.1); Sodium Level 144 mmol/L (136-145)
[2019-07-30] MEDS: Losartan Potassium 25 MG Tablet PO (09:27)
[2019-07-30] MEDS: Amiodarone 200 MG Tablet PO (09:27)
[2019-07-30] MEDS: Carvedilol 6.25 MG Tablet PO ×2 (09:27→21:23)
[2019-07-30] MEDS: DULoxetine Hcl 20 MG Capsule PO (09:28)
[2019-07-30] MEDS: Aspirin E.C. 81 MG Tablet PO (09:28)
[2019-07-30] MEDS: cycloBENZAPRine HCl 5 MG TABLET PO ×2 (09:28→21:23)
[2019-07-30] MEDS: APIXABAN 2.5 MG TABLET PO ×2 (09:29→21:23)
[2019-07-30] MEDS: Tamsulosin HCl 0.4 MG Capsule PO (09:30)
[2019-07-30] MEDS: Memantine Hydrochloride 10 MG Tablet PO ×2 (09:30→21:23)
[2019-07-30] MEDS: Furosemide 20 MG/2 ML VIAL IV (13:09)
--- NOTE | 2019-07-30 18:47 | PCM.PROGNOTE ---
Patient Problems: Active and Suspected Problems (Last Reviewed 02/18/19 @ 11:44 by Gary Bullard MD) Weakness (Acute) Subjective: Patient was seen and examined today, she does not appear to have any shortness of breath at rest. It appears that the patient's oxygen requirement is gone up to 4 L via nasal cannula. Patient's chest x-ray which was done this morning shows worsening bilateral infiltrates. I went over all this with the and I discussed her care briefly with cardiology today. I gave the patient 1 dose of IV Lasix this morning. - Physical Exam General: Alert, Cooperative, No apparent distress, Well developed HEENT: Atraumatic, PERRLA, EOMI, Normocephalic Oral: Moist Mucosa Neck: Supple, Trachea Midline, Thyroid Normal Size and Texture Lungs: Normal air movement, Rales - Inspiratory rales over all lung david Cardiovascular: Regular rate, Regular Rhythm, Normal S1, Normal S2, No murmurs, No Ectopic Activity, PMI Normal, No rub noted Abdomen: Bowel Sounds Present, Soft, Non Tender, Non-Distended, No hernias noted Extremities: No clubbing, No cyanosis, No edema, Capillary Refill Less than 3 Seconds Skin: No rashes, No breakdown Musculoskeletal: No Tenderness to Palpation of Joints or Extremities Neurological: Cranial nerves II-XII grossly intact, Neuro grossly intact, Sensory exam intact to light touch and pain, Coordination normal Psych/Mental Status: Appropriate, Flat Affect Vital Signs Temp Pulse Resp BP Pulse Ox 98.1 F 69 16 116/40 L 97 07/30/19 18:29 07/30/19 18:29 07/30/19 18:29 07/30/19 18:29 07/30/19 18:29 Oxygen Flow Rate (L/min) [ 4 AMBULATION with Oxygen] Oxygen Flow Rate (L/min) 4 Oxygen Delivery Method Nasal Cannula Weight: 62.5 kg Body Mass Index (BMI) 26.0 Intake and Output for Last 24 Hours 07/28/19 07/29/19 07/30/19 23:59 23:59 23:59 Intake Total 1916.25 / 191.25 400 / 400 300 / 300 Output Total 600 / 600 550 / 550 200 / 200 Balance 1316.25 / 1316.25 -150 / -150 100 / 100 Microbiology Past 72 Hours 07/27/19 20:50 Blood Culture - Preliminary Blood Culture (Wb) - Anticubital Left No growth in 48 hours. 07/27/19 20:45 Blood Culture - Preliminary Blood Culture (Wb) - Anticubital Right No growth in 48 hours. Laboratory Tests Past 24 Hrs 07/30/19 07/30/19 07/30/19 05:35 05:35 05:35 WBC 8.8 RBC 3.70 L Hgb 11.7 L Hct 36.7 L MCV 99.2 H MCH 31.6 MCHC 31.9 L RDW Std Deviation 54.5 H RDW Coeff of Silvano 15.0 H Plt Count 276 MPV 11.1 Immature Gran % (Auto) 0.600 Neut % (Auto) 79.6 H Lymph % (Auto) 10.0 L [place] % (Auto) 6.3 Eos % (Auto) 3.0 Baso % (Auto) 0.5 Absolute Neuts (auto) 7.0 Absolute Lymphs (auto) 0.88 Nucleated RBC % 0 Sodium 144 Potassium 3.5 Chloride 109 H Carbon Dioxide 27.0 Anion Gap 8 BUN 20 H Creatinine 1.13 H Estim Creat Clear Calc 29.46 Est GFR (MDRD) Af Amer 59 L Est GFR (MDRD) Non-Af 49 L BUN/Creatinine Ratio 17.7 Glucose 93 Calcium 8.6 Procalcitonin Miscellaneous Test Cancelled 07/30/19 05:35 WBC RBC Hgb Hct MCV MCH MCHC RDW Std Deviation RDW Coeff of Silvano Plt Count MPV Immature Gran % (Auto) Neut % (Auto) Lymph % (Auto) [place] % (Auto) Eos % (Auto) Baso % (Auto) Absolute Neuts (auto) Absolute Lymphs (auto) Nucleated RBC % Sodium Potassium Chloride Carbon Dioxide Anion Gap BUN Creatinine Estim Creat Clear Calc Est GFR (MDRD) Af Amer Est GFR (MDRD) Non-Af BUN/Creatinine Ratio Glucose Calcium Procalcitonin Pending Miscellaneous Test Medical Necessity - Tobacco Use Smoking Status: Never smoker Assessment/Plan All Active Problems (Last Reviewed 02/18/19 @ 11:44 by Gary Bullard MD) Weakness (Acute) Chronic systolic (congestive) heart failure (Acute) #1 acute hypoxic respiratory failure-probably secondary to systolic congestive heart failure-continue current treatment, again patient was given 1 dose of Lasix today, she became hypotensive yesterday on 40 mg IV of Lasix so I have decided to give small amounts of Lasix. #2 generalized debility-probably secondary to hypoxia with a backdrop of dementia, PT and OT will continue to see the patient #3 urinary retention-patient is currently on Flomax and has no complaints of any urinary hesitancy #4 dementia #5 hypertensive dilated cardiomyopathy-EF 35% #6 paroxysmal atrial fibrillation-patient is currently on Eliquis #7 decompensated chronic systolic congestive heart failure-again cardiology is participating in her care #8 hypertension Code Visit Inpatient E&M: 14972 Subs Hosp L2
[2019-07-31] VITALS (14 sets, daily range): BP systolic 92–119; BP diastolic 40–52; PULSE 48–66; RESP 14–28; TEMP 36.6–38.1; O2SAT 92–98
--- NOTE | 2019-07-31 05:55 | RAD_ITS ---
STUDY: X-RAY CHEST REASON FOR EXAM: Female, 83 years old. Shortness of breath TECHNIQUE: AP portable COMPARISON: 07/30/2019 FINDINGS: Cardiac and mediastinal silhouettes are unchanged. There is persistent increased interstitial lung markings as well as patchy upper lobe opacities. No evidence for pneumothorax. There is no demonstrated abnormality of the visualized soft tissue structures of the upper abdomen. RAD/Chest 1 View (Portable) IMPRESSION: Stable chest with diffuse interstitial increased lung markings and also upper lobe patchy opacities. Electronically Signed: Brien Briceño, at 7:58 EDT Tel , Service support ,
[2019-07-31] MEDS: Levothyroxine 50 MCG Tablet PO (05:56)
[2019-07-31 06:03] LABS: Anion Gap 7 (5-15); BUN 20 mg/dL (7-18); BUN/Creat Ratio 19.6 RATIO (10-20); Calcium,Total 8.4 mg/dL (8.5-10.1); Chloride 106 mmol/L (98-107); Creatinine, Serum 1.02 mg/dL (0.55-1.02); EST Glomerular Filtration Rate 55 mL/min (>60); Est Glom Filt Rate - Afr Amer 67 mL/min (>60); Estimated Creatinine Clearance 32.64 ml/min; Glucose 108 mg/dL (74-106); Potassium 3.5 mmol/L (3.5-5.1); Sodium Level 141 mmol/L (136-145)
--- NOTE | 2019-07-31 07:44 | PCM.PN.PUL ---
Patient Problems: Active and Suspected Problems (Last Reviewed 02/18/19 @ 11:44 by Gary Bullard MD) Weakness (Acute) Subjective: The patient was seen and examined at the bedside this morning. Events from the last 24 hours have been reviewed. The patient is currently afebrile and hemodynamically stable. She is wearing CPAP per home regimen. The patient's only complaint this morning was for that of wanting to get out of bed and use the restroom. The patient has not been maintained on any form of scheduled diuretic regimen during her hospital course. Her I's and O's are inaccurate. Objective: The patient's most recent lab work, culture data and imaging studies have all been personally reviewed. - Physical Exam General: Alert, Cooperative, No apparent distress HEENT: Atraumatic, PERRLA, Normocephalic Oral: No Gingival or Mucosal Lesions/ Ulcerations Neck: Supple, No Nodes, Trachea Midline Lungs: Diminished, Rales Cardiovascular: Regular rate, Regular Rhythm, Normal S1, Normal S2 Abdomen: Bowel Sounds Present, Soft, Non Tender Extremities: No clubbing, No cyanosis, No edema Skin: - - No significant change from previous. Musculoskeletal: No Tenderness to Palpation of Joints or Extremities Lymphatic: No Cervical, Supraclavicular, or Inguinal Adenopathy Neurological: Neuro grossly intact Psych/Mental Status: Normal Affect, Appropriate Vital Signs Temp Pulse Resp BP Pulse Ox 98.0 F 52 L 14 112/40 L 93 07/31/19 03:25 07/31/19 07:37 07/31/19 07:37 07/31/19 03:25 07/31/19 07:37 Oxygen Flow Rate (L/min) [ 4 AMBULATION with Oxygen] Oxygen Flow Rate (L/min) 4 Oxygen Delivery Method CPAP Weight: 135 lb 2.294 oz Body Mass Index (BMI) 26.0 Intake and Output for Last 24 Hours 07/29/19 07/30/19 07/31/19 23:59 23:59 23:59 Intake Total 400 / 400 350 / 350 Output Total 550 / 550 200 / 200 100 / 100 Balance -150 / -150 150 / 150 -100 / -100 Microbiology Past 72 Hours 07/27/19 20:50 Blood Culture - Preliminary Blood Culture (Wb) - Anticubital Left No growth in 48 hours. 07/27/19 20:45 Blood Culture - Preliminary Blood Culture (Wb) - Anticubital Right No growth in 48 hours. Laboratory Tests Past 24 Hrs 07/30/19 07/30/19 07/31/19 05:35 05:35 05:30 Sodium 141 Potassium 3.5 Chloride 106 Carbon Dioxide 28.0 Anion Gap 7 BUN 20 H Creatinine 1.02 Estim Creat Clear Calc 32.64 Est GFR (MDRD) Af Amer 67 Est GFR (MDRD) Non-Af 55 L BUN/Creatinine Ratio 19.6 Glucose 108 H Calcium 8.4 L Procalcitonin Pending Miscellaneous Test Cancelled Clinical Impression(s) from Imaging Studies Chest X-Ray 07/27/19 19:30 IMPRESSION: Mild interstitial thickening in the right upper and left lower lobes possibly inflammatory changes. Clinical correlation recommended Electronically Signed: John Horner MD at 20:03 EDT , Service support , Chest CTA 07/27/19 21:22 IMPRESSION: Mild diffuse generalized interstitial thickening with emphysematous changes and multifocal groundglass opacities most pronounced in the upper lobes greater on the right. No evidence for pulmonary embolus. Electronically Signed: John Horner MD at 22:19 EDT , Service support , Chest X-Ray 07/30/19 05:55 IMPRESSION: Increasing bilateral infiltrates, asymmetric and possibly related to infection or other cause of interstitial pneumonitis. Asymmetric edema felt to be less likely given the distribution.. at 0630 Reported and signed by: Sharon Roldan MD Electronically Signed: Sharon Roldan MD at 6:30 EDT Tel , Service support , Medical Necessity - Tobacco Use Smoking Status: Never smoker Assessment/Plan All Active Problems (Last Reviewed 02/18/19 @ 11:44 by Gary Bullard MD) Weakness (Acute) Chronic systolic (congestive) heart failure (Acute) RECOMMENDATIONS: 1. I would recommend that the patient's diuretic therapy be scheduled. 2. Consider placing fluid restriction and obtaining daily weights, along with strict I/O's. 3. Hold on antibiotics unless the patient were to develop a cough, fever or leukocytosis. 4. Wean supplemental oxygen to maintain saturations at or above 90%. 5. Encourage incentive spirometer use and mobilize patient as tolerated. IMPRESSIONS: 1. Acute hypoxemic respiratory failure While the patient presented with findings concerning for decompensated heart failure, her CT chest revealed groundglass changes bilaterally, which appeared to predominantly affect the upper lobes, right greater than left. She did not have significant pleural effusions. Nevertheless, given that her BNP is elevated and she has a history of combined systolic and diastolic heart failure, I would recommend gentle diuresis. In the absence of an elevated white blood count, fever or cough that is productive of sputum, I would not initiate antimicrobials at this time. If the patient does not respond to the use of diuretics, would need to consider additional work-up, including potential bronchoscopy, to evaluate for infectious etiologies like nontuberculous mycobacterial infection or potential idiopathic interstitial pneumonias. 2. Acute on chronic combined systolic and diastolic heart failure Continue medical optimization under the discretion of cardiology. 3. Personal history of sleep apnea Currently under the care of Dr. Torres. Continue nocturnal Pap therapy per outpatient regimen. 4. Advanced age and deconditioning/paroxysmal atrial fibrillation/hypothyroidism/depression/dementia/hypertension Complicates care, management, recovery and prognosis. Continue home medications as indicated. This note was generated with [employer] dictation software. It may contain incorrect words, spelling, and punctuation that were not noted in checking the note before signing. Code Visit Inpatient E&M: 13418 Subs Hosp L2
[2019-07-31] MEDS: cycloBENZAPRine HCl 5 MG TABLET PO ×2 (09:14→21:12)
[2019-07-31] MEDS: Memantine Hydrochloride 10 MG Tablet PO ×2 (09:14→21:12)
[2019-07-31] MEDS: Tamsulosin HCl 0.4 MG Capsule PO (09:14)
[2019-07-31] MEDS: Aspirin E.C. 81 MG Tablet PO (09:14)
[2019-07-31] MEDS: DULoxetine Hcl 20 MG Capsule PO (09:14)
[2019-07-31] MEDS: Losartan Potassium 25 MG Tablet PO (09:15)
[2019-07-31] MEDS: APIXABAN 2.5 MG TABLET PO ×2 (09:15→21:12)
[2019-07-31] MEDS: Amiodarone 200 MG Tablet PO (09:15)
[2019-07-31] MEDS: Carvedilol 6.25 MG Tablet PO ×2 (10:05→21:12)
[2019-07-31] MEDS: Furosemide 20 MG/2 ML VIAL IV ×2 (15:08→21:13)
--- NOTE | 2019-07-31 15:27 | PCM.PROGNOTE ---
Patient Problems: Active and Suspected Problems (Last Reviewed 02/18/19 @ 11:44 by Gary Bullard MD) Weakness (Acute) Subjective: Patient was seen and examined today, she still requiring 4 L of oxygen via nasal cannula to maintain her pulse ox. Again I talked at length with her who was in the room today, feels that the patient is more alert today and less somnolent. I talked briefly with Dr. Escalona about her care, Dr. Escalona again recommended the patient undergo diuresis to see if her chest x-ray would improve. I have decided to place the patient on program Lasix today-we will place her on 20 mg IV every 8 hours and monitor her blood pressure. Objective: General: Alert, Cooperative, No apparent distress, Well developed HEENT: Atraumatic, PERRLA, EOMI, Normocephalic Oral: Moist Mucosa Neck: Supple, Trachea Midline, Thyroid Normal Size and Texture Lungs: Normal air movement, Rales - Inspiratory rales over all lung david Cardiovascular: Regular rate, Regular Rhythm, Normal S1, Normal S2, No murmurs, No Ectopic Activity, PMI Normal, No rub noted Abdomen: Bowel Sounds Present, Soft, Non Tender, Non-Distended, No hernias noted Extremities: No clubbing, No cyanosis, No edema, Capillary Refill Less than 3 Seconds Skin: No rashes, No breakdown Musculoskeletal: No Tenderness to Palpation of Joints or Extremities Neurological: Cranial nerves II-XII grossly intact, Neuro grossly intact, Sensory exam intact to light touch and pain, Coordination normal Psych/Mental Status: Confusion present, no agitation, Flat Affect - Physical Exam Vital Signs Temp Pulse Resp BP Pulse Ox 100.4 F H 64 16 97/40 L 93 07/31/19 14:51 07/31/19 14:51 07/31/19 14:51 07/31/19 14:51 07/31/19 14:51 Oxygen Flow Rate (L/min) [ 4 AMBULATION with Oxygen] Oxygen Flow Rate (L/min) 4 Oxygen Delivery Method Nasal Cannula Weight: 61.3 kg Body Mass Index (BMI) 26.0 Intake and Output for Last 24 Hours 07/29/19 07/30/19 07/31/19 23:59 23:59 23:59 Intake Total 400 / 400 350 / 350 Output Total 550 / 550 200 / 200 100 / 100 Balance -150 / -150 150 / 150 -100 / -100 Microbiology Past 72 Hours 07/27/19 20:50 Blood Culture - Preliminary Blood Culture (Wb) - Anticubital Left No growth in 48 hours. 07/27/19 20:45 Blood Culture - Preliminary Blood Culture (Wb) - Anticubital Right No growth in 48 hours. Laboratory Tests Past 24 Hrs 07/31/19 05:30 Sodium 141 Potassium 3.5 Chloride 106 Carbon Dioxide 28.0 Anion Gap 7 BUN 20 H Creatinine 1.02 Estim Creat Clear Calc 32.64 Est GFR (MDRD) Af Amer 67 Est GFR (MDRD) Non-Af 55 L BUN/Creatinine Ratio 19.6 Glucose 108 H Calcium 8.4 L Medical Necessity - Tobacco Use Smoking Status: Never smoker Assessment/Plan All Active Problems (Last Reviewed 02/18/19 @ 11:44 by Gary Bullard MD) Weakness (Acute) Chronic systolic (congestive) heart failure (Acute) #1 acute hypoxic respiratory failure-probably secondary to systolic congestive heart failure-continue current treatment, again patient was placed on program Lasix today, I will monitor her blood pressure and avoid hypotension #2 generalized debility-probably secondary to hypoxia with a backdrop of dementia, PT and OT will continue to see the patient #3 urinary retention-patient is currently on Flomax and has no complaints of any urinary hesitancy #4 dementia #5 hypertensive dilated cardiomyopathy-EF 35% #6 paroxysmal atrial fibrillation-patient is currently on Eliquis #7 decompensated chronic systolic congestive heart failure-again cardiology is participating in her care #8 hypertension Code Visit Inpatient E&M: 55683 Subs Hosp L2
[2019-07-31] MEDS: 0.9% NaCl Peripheral Flush Adult/Peds IV (21:12)
[2019-08-01] VITALS (17 sets, daily range): BP systolic 87–129; BP diastolic 31–57; PULSE 52–64; RESP 12–26; TEMP 36.5–37.5; O2SAT 92–99
[2019-08-01] MEDS: Furosemide 20 MG/2 ML VIAL IV ×2 (05:48→22:15)
[2019-08-01] MEDS: 0.9% NaCl Peripheral Flush Adult/Peds IV ×2 (05:48→22:11)
[2019-08-01] MEDS: Levothyroxine 50 MCG Tablet PO (05:48)
[2019-08-01 06:51] LABS: Anion Gap 5 (5-15); BUN 21 mg/dL (7-18); BUN/Creat Ratio 16.9 RATIO (10-20); Calcium,Total 8.4 mg/dL (8.5-10.1); Chloride 104 mmol/L (98-107); Creatinine, Serum 1.24 mg/dL (0.55-1.02); EST Glomerular Filtration Rate 44 mL/min (>60); Est Glom Filt Rate - Afr Amer 53 mL/min (>60); Estimated Creatinine Clearance 26.85 ml/min; Glucose 105 mg/dL (74-106); Potassium 3.4 mmol/L (3.5-5.1); Sodium Level 138 mmol/L (136-145)
[2019-08-01] MEDS: Amiodarone 200 MG Tablet PO (09:16)
[2019-08-01] MEDS: Aspirin E.C. 81 MG Tablet PO (09:17)
[2019-08-01] MEDS: APIXABAN 2.5 MG TABLET PO ×2 (09:17→22:09)
[2019-08-01] MEDS: DULoxetine Hcl 20 MG Capsule PO (09:17)
[2019-08-01] MEDS: Tamsulosin HCl 0.4 MG Capsule PO (09:17)
[2019-08-01] MEDS: Losartan Potassium 25 MG Tablet PO (09:17)
[2019-08-01] MEDS: cycloBENZAPRine HCl 5 MG TABLET PO ×2 (09:17→22:09)
[2019-08-01] MEDS: Carvedilol 6.25 MG Tablet PO (09:17)
[2019-08-01] MEDS: Memantine Hydrochloride 10 MG Tablet PO ×2 (09:18→22:10)
--- NOTE | 2019-08-01 14:01 | PCM.PN.PUL ---
Patient Problems: Active and Suspected Problems (Last Reviewed 02/18/19 @ 11:44 by Gary Bullard MD) Weakness (Acute) Subjective: Patient did okay overnight. Patient did spike a fever, but oxygenation is much improved following diuresis. Patient reports subjective improvement in overall condition. Patient was able to get to the chair yesterday and tolerated well. Nursing was concerned about some hypotension through the day. Patient did have some significant confusion overnight. - Physical Exam General: Alert, Cooperative, No apparent distress, Disoriented, - - No conversational dyspnea. HEENT: Atraumatic, PERRLA, EOMI, Normocephalic, - - No scleral icterus or injection noted. Oral: Moist Mucosa, No Gingival or Mucosal Lesions/ Ulcerations Neck: Supple, No JVD, No Nodes, Trachea Midline Lungs: No rhonchi, No wheeze, Diminished, Rales, - - Symmetric expansion. No dullness to percussion. Cardiovascular: Regular rate, Regular Rhythm, Normal S1, Normal S2, No murmurs, No rub noted, No Gallop Abdomen: Bowel Sounds Present, Soft, Non Tender, Non-Distended Extremities: No clubbing, No cyanosis, No edema Skin: No rashes, No breakdown Musculoskeletal: No Tenderness to Palpation of Joints or Extremities Lymphatic: No Cervical, Supraclavicular, or Inguinal Adenopathy Neurological: Cranial nerves II-XII grossly intact, Neuro grossly intact, Motor Exam 5/5 strength throughout Psych/Mental Status: Appropriate, Flat Affect Vital Signs Temp Pulse Resp BP Pulse Ox 37.2 C 58 L 12 87/31 L 92 08/01/19 13:58 08/01/19 13:58 08/01/19 13:58 08/01/19 13:58 08/01/19 13:58 Oxygen Flow Rate (L/min) [ 4 AMBULATION with Oxygen] Oxygen Flow Rate (L/min) 2 Oxygen Delivery Method Nasal Cannula Weight: 60.6 kg Body Mass Index (BMI) 26.0 Intake and Output for Last 24 Hours 07/30/19 07/31/19 08/01/19 23:59 23:59 23:59 Intake Total 350 / 350 120 / 120 360 / 360 Output Total 200 / 200 1150 / 1150 Balance 150 / 150 -1030 / -1030 360 / 360 Microbiology Past 72 Hours 07/27/19 20:50 Blood Culture - Preliminary Blood Culture (Wb) - Anticubital Left No growth in 48 hours. 07/27/19 20:45 Blood Culture - Preliminary Blood Culture (Wb) - Anticubital Right No growth in 48 hours. Laboratory Tests Past 24 Hrs 08/01/19 06:10 Sodium 138 Potassium 3.4 L Chloride 104 Carbon Dioxide 29.0 Anion Gap 5 BUN 21 H Creatinine 1.24 H Estim Creat Clear Calc 26.85 Est GFR (MDRD) Af Amer 53 L Est GFR (MDRD) Non-Af 44 L BUN/Creatinine Ratio 16.9 Glucose 105 Calcium 8.4 L Medical Necessity - Tobacco Use Smoking Status: Never smoker Assessment/Plan All Active Problems (Last Reviewed 02/18/19 @ 11:44 by Gary Bullard MD) Weakness (Acute) Chronic systolic (congestive) heart failure (Acute) RECOMMENDATIONS: 1. Monitor diuretic therapy, potassium supplementation is indicated 2. Initiate empiric antibiotics with Levaquin if develops fever 3. Wean oxygen as tolerated 4. No indication for bronchoscopy at this time 5. Encourage incentive spirometer use and mobilize patient as tolerated. IMPRESSIONS: 1. Acute hypoxemic respiratory failure Patient appears to be responding to diuretic therapy. Patient has had an elevation in creatinine, but states this is her baseline at approximately 1.2. Would continue with gentle diuresis. Patient did spike a fever overnight, but it is unclear if this is environmental. If this were to recur, empiric antibiotics would be indicated. Patient appears to be responding to diuretic therapy, so bronchoscopy would not be considered as an inpatient for now. 2. Acute on chronic combined systolic and diastolic heart failure Continue medical optimization under the discretion of cardiology. 3. Personal history of sleep apnea Currently under the care of Dr. Torres. Continue nocturnal Pap therapy per outpatient regimen. 4. Advanced age and deconditioning/paroxysmal atrial fibrillation/hypothyroidism/depression/dementia/hypertension Complicates care, management, recovery and prognosis. Continue home medications as indicated. Code Visit Inpatient E&M: 04374 Subs Hosp L2
--- NOTE | 2019-08-01 14:58 | PN_ITS ---
Patient Problems: Active and Suspected Problems (Last Reviewed 02/18/19 @ 11:44 by Gary Bullard MD) Weakness (Acute) HFrEF (heart failure with reduced ejection fraction) (Acute) Subjective: Feeling better. Still SOB. Issues with low BP today. Vitals/I&O's: Vital Signs Temp Pulse Resp BP Pulse Ox 37.2 C 58 L 12 87/31 L 92 08/01/19 13:58 08/01/19 13:58 08/01/19 13:58 08/01/19 13:58 08/01/19 13:58 Oxygen Flow Rate (L/min) [ 4 AMBULATION with Oxygen] Oxygen Flow Rate (L/min) 2 Oxygen Delivery Method Nasal Cannula Weight: 60.6 kg Body Mass Index (BMI) 26.0 Intake and Output for Last 24 Hours 07/30/19 07/31/19 08/01/19 23:59 23:59 23:59 Intake Total 350 / 350 120 / 120 360 / 360 Output Total 200 / 200 1150 / 1150 Balance 150 / 150 -1030 / -1030 360 / 360 General: Alert, No apparent distress HEENT: Atraumatic, Normocephalic Oral: Moist Mucosa, No Gingival or Mucosal Lesions/ Ulcerations Neck: No Nodes, Trachea Midline Lungs: - - coarse breath sounds in upper lobes. Cardiovascular: Regular rate, Regular Rhythm, Normal S1, Normal S2 Abdomen: Bowel Sounds Present, Soft, Non Tender, Non-Distended Extremities: No edema, No Calf Tenderness Skin: No rashes, No breakdown Psych/Mental Status: Normal Affect, Appropriate Microbiology Past 72 Hours 07/27/19 20:50 Blood Culture (Wb) - Anticubital Left Blood Culture - Pr eliminary No growth in 48 hours. 07/27/19 20:45 Blood Culture (Wb) - Anticubital Right Blood Culture - Preliminary No growth in 48 hours. Laboratory Results 08/01/19 06:10: Sodium 138, Potassium 3.4 L, Chloride 104, Carbon Dioxide 29.0, Anion Gap 5, BUN 21 H, Creatinine 1.24 H, Estim Creat Clear Calc 26.85, Est GFR (MDRD) Af Amer 53 L, Est GFR (MDRD) Non-Af 44 L, BUN/Creatinine Ratio 16.9, Glucose 105, Calcium 8.4 L Current Medications Acetaminophen (Tylenol) 650 mg PO Q6H PRN PRN PRN Reason: Mild pain 1-3/Temp > 100.7 F Last Admin: 07/29/19 05:31 Dose: 650 mg Documented by: Amiodarone HCl (Cordarone) 200 mg PO DAILY [facility] Last Admin: 08/01/19 09:16 Dose: 200 mg Documented by: Apixaban (Eliquis) 2.5 mg PO BID [facility] Last Admin: 08/01/19 09:17 Dose: 2.5 mg Documented by: Aspirin (Ecotrin) 81 mg PO DAILY [facility] Last Admin: 08/01/19 09:17 Dose: 81 mg Documented by: Carvedilol (Coreg) 3.125 mg PO BID [facility] Cyclobenzaprine HCl (Cyclobenzaprine Hcl) 5 mg PO BID [facility] Last Admin: 08/01/19 09:17 Dose: 5 mg Documented by: Duloxetine HCl (Cymbalta) 20 mg PO DAILY [facility] Last Admin: 08/01/19 09:17 Dose: 20 mg Documented by: Fluticasone Propionate (Flonase Nasal [place]) 2 spray NASAL BID PRN PRN PRN Reason: ALLERGIES Furosemide (Lasix) 20 mg IV Q8 [facility] Last Admin: 08/01/19 05:48 Dose: 20 mg Documented by: Levothyroxine Sodium (Synthroid) 50 mcg PO DAILY@0600 [facility] Last Admin: 08/01/19 05:48 Dose: 50 mcg Documented by: Memantine (Namenda) 10 mg PO BID [facility] Last Admin: 08/01/19 09:18 Dose: 10 mg Documented by: Potassium Chloride (K-Dur) 20 meq PO BIDCM [facility] Last Admin: 08/01/19 09:16 Dose: 20 meq Documented by: Sodium Chloride () 10 - 40 ml IV UD PRN PRN Reason: SALINE FLUSH Last Admin: 08/01/19 05:48 Dose: 10 ml Documented by: Tramadol HCl (Ultram) 75 mg PO BID PRN PRN Reason: pain Medical Necessity - Tobacco Use Smoking Status: Never smoker Assessment/Plan All Active Problems (Last Reviewed 02/18/19 @ 11:44 by Gary Bullard MD) Weakness (Acute) HFrEF (heart failure with reduced ejection fraction) (Acute) Chronic systolic (congestive) heart failure (Acute) 1. acute HFrEF * EF 35% * continue furosemide as BP allows * no fever, no leukocytosis, but consider abx if s/s PNA develop, or failure to improve despite abx. 2. hypotension * transient, mostly has been normotensive * DC'd losartan, tamsulosin * decreased carvedilol to 3.125 BID 3. Urinary retention * monitor * tamsulosin being held * consider periodic straight cath * UA negative 4. pAfib * anticoagulated on apixaban 5. Dementia * continue memantine * DC tramadol 6. VTE proph: low risk as already is anticoagulated Greater than 35 minutes of which greater than 50% of the time was discussing the CTA, CHF with the patient's , Dr. Ramirez. Code Visit Inpatient E&M: 62498 Subs Hosp L3
[2019-08-01] MEDS: Senna/Docusate Sodium 1 Tablet PO (17:50)
[2019-08-01] MEDS: Carvedilol 3.125 MG TABLET PO (22:09)
[2019-08-01] MEDS: Acetaminophen 325 MG Tablet 650 MG PO (22:10)
[2019-08-02] VITALS (14 sets, daily range): BP systolic 104–119; BP diastolic 41–49; PULSE 51–68; RESP 13–24; TEMP 36.3–36.6; O2SAT 91–97
[2019-08-02] MEDS: Acetaminophen 325 MG Tablet 650 MG PO ×2 (04:20→17:15)
[2019-08-02] MEDS: 0.9% NaCl Peripheral Flush Adult/Peds IV (05:46)
[2019-08-02] MEDS: Furosemide 20 MG/2 ML VIAL IV ×2 (05:47→13:19)
[2019-08-02 05:56] LABS: Anion Gap 6 (5-15); BUN 23 mg/dL (7-18); BUN/Creat Ratio 19.2 RATIO (10-20); Calcium,Total 8.4 mg/dL (8.5-10.1); Chloride 105 mmol/L (98-107); EST Glomerular Filtration Rate 46 mL/min (>60); Est Glom Filt Rate - Afr Amer 55 mL/min (>60); Estimated Creatinine Clearance 27.75 ml/min; Glucose 109 mg/dL (74-106); Potassium 3.7 mmol/L (3.5-5.1); Sodium Level 141 mmol/L (136-145)
[2019-08-02] MEDS: Levothyroxine 50 MCG Tablet PO (05:59)
[2019-08-02] MEDS: Aspirin E.C. 81 MG Tablet PO (09:34)
[2019-08-02] MEDS: Polyethylene Glycol 3350 17 GM PACKET PO (09:34)
[2019-08-02] MEDS: DULoxetine Hcl 20 MG Capsule PO (09:34)
[2019-08-02] MEDS: Carvedilol 3.125 MG TABLET PO ×2 (09:34→21:07)
[2019-08-02] MEDS: Memantine Hydrochloride 10 MG Tablet PO ×2 (09:34→21:09)
[2019-08-02] MEDS: Amiodarone 200 MG Tablet PO (09:34)
[2019-08-02] MEDS: APIXABAN 2.5 MG TABLET PO ×2 (09:34→21:09)
[2019-08-02] MEDS: cycloBENZAPRine HCl 5 MG TABLET PO ×2 (09:34→21:08)
--- NOTE | 2019-08-02 13:29 | PCM.PN.PUL ---
Patient Problems: Active and Suspected Problems (Last Reviewed 02/18/19 @ 11:44 by Gary Bullard MD) Weakness (Acute) Subjective: Patient did okay overnight from a hemodynamic standpoint. Patient reported that she was miserable this morning secondary to constipation. Oxygenation status remained stable. No nausea or vomiting is been reported. - Physical Exam General: Alert, No apparent distress, Confused, Disoriented, - - No conversational dyspnea. HEENT: Atraumatic, PERRLA, EOMI, Normocephalic, - - No scleral icterus or injection noted Oral: Moist Mucosa, No Gingival or Mucosal Lesions/ Ulcerations Neck: Supple, No JVD, No Nodes, Trachea Midline Lungs: No rhonchi, No wheeze, No rales, Diminished Cardiovascular: Regular rate, Regular Rhythm, Normal S1, Normal S2, No murmurs, No rub noted, No Gallop Abdomen: Bowel Sounds Present, Soft, Non Tender, Non-Distended Extremities: No clubbing, No cyanosis, No edema, Capillary Refill Less than 3 Seconds Skin: No rashes, No breakdown Musculoskeletal: No Tenderness to Palpation of Joints or Extremities Lymphatic: No Cervical, Supraclavicular, or Inguinal Adenopathy Neurological: Cranial nerves II-XII grossly intact, Neuro grossly intact, Motor Exam 5/5 strength throughout Psych/Mental Status: Anxious, Restless Vital Signs Temp Pulse Resp BP Pulse Ox 36.6 C 58 L 18 104/41 L 96 08/02/19 09:45 08/02/19 09:45 08/02/19 12:16 08/02/19 09:45 08/02/19 12:16 Oxygen Flow Rate (L/min) [ 4 AMBULATION with Oxygen] Oxygen Flow Rate (L/min) 2.5 Oxygen Delivery Method Room Air Weight: 60.1 kg Body Mass Index (BMI) 26.0 Intake and Output for Last 24 Hours 07/31/19 08/01/19 08/02/19 23:59 23:59 23:59 Intake Total 120 / 120 1144 / 1144 450 / 450 Output Total 1150 / 1150 200 / 200 710 / 710 Balance -1030 / -1030 944 / 944 -260 / -260 Microbiology Past 72 Hours 07/27/19 20:45 Blood Culture - Final Blood Culture (Wb) - Anticubital Right No growth in 5 days. 07/27/19 20:50 Blood Culture - Final Blood Culture (Wb) - Anticubital Left No growth in 5 days. Laboratory Tests Past 24 Hrs 08/02/19 05:15 Sodium 141 Potassium 3.7 Chloride 105 Carbon Dioxide 30.0 Anion Gap 6 BUN 23 H Creatinine 1.20 H Estim Creat Clear Calc 27.75 Est GFR (MDRD) Af Amer 55 L Est GFR (MDRD) Non-Af 46 L BUN/Creatinine Ratio 19.2 Glucose 109 H Calcium 8.4 L Medical Necessity - Tobacco Use Smoking Status: Never smoker Assessment/Plan All Active Problems (Last Reviewed 02/18/19 @ 11:44 by Gary Bullard MD) HFrEF (heart failure with reduced ejection fraction) (Acute) Weakness (Acute) Chronic systolic (congestive) heart failure (Acute) RECOMMENDATIONS: 1. Continue diuretic therapy, potassium supplementation as indicated 2. Initiate empiric antibiotics with Levaquin only if develops fever 3. Wean oxygen as tolerated 4. No indication for bronchoscopy at this time 5. Encourage incentive spirometer use and mobilize patient as tolerated. 6. Aggressive bowel regimen IMPRESSIONS: 1. Acute hypoxemic respiratory failure Patient appears to be responding to diuretic therapy. Patient has had an elevation in creatinine, but states this is her baseline at approximately 1.2. Would continue with gentle diuresis. No fever was noted overnight. If this were to recur, empiric antibiotics would be indicated. Patient appears to be responding to diuretic therapy, so bronchoscopy would not be considered as an inpatient for now. 2. Acute on chronic combined systolic and diastolic heart failure Continue medical optimization under the discretion of cardiology. 3. Personal history of sleep apnea Currently under the care of Dr. Torres. Continue nocturnal Pap therapy per outpatient regimen. 4. Advanced age and deconditioning/paroxysmal atrial fibrillation/hypothyroidism/depression/dementia/hypertension Complicates care, management, recovery and prognosis. Continue home medications as indicated. Code Visit Inpatient E&M: 69996 Subs Hosp L2
--- NOTE | 2019-08-02 13:53 | PCM.PN.HOSP ---
Patient Problems: Active and Suspected Problems (Last Reviewed 02/18/19 @ 11:44 by Gary Bullard MD) Weakness (Acute) Subjective: Breathing better. Vitals/I&O's: Vital Signs Temp Pulse Resp BP Pulse Ox 36.6 C 58 L 18 104/41 L 96 08/02/19 09:45 08/02/19 09:45 08/02/19 12:16 08/02/19 09:45 08/02/19 12:16 Oxygen Flow Rate (L/min) [ 4 AMBULATION with Oxygen] Oxygen Flow Rate (L/min) 2.5 Oxygen Delivery Method Room Air Weight: 60.1 kg Body Mass Index (BMI) 26.0 Intake and Output for Last 24 Hours 07/31/19 08/01/19 08/02/19 23:59 23:59 23:59 Intake Total 120 / 120 1144 / 1144 450 / 450 Output Total 1150 / 1150 200 / 200 710 / 710 Balance -1030 / -1030 944 / 944 -260 / -260 General: Alert, No apparent distress HEENT: Atraumatic, Normocephalic Oral: Moist Mucosa, No Gingival or Mucosal Lesions/ Ulcerations Neck: No Nodes, Thyroid Normal Size and Texture Lungs: Clear to auscultation, Normal air movement, No rhonchi, No wheeze Cardiovascular: Regular rate, Regular Rhythm, Normal S1, Normal S2 Abdomen: Bowel Sounds Present, Soft, Non Tender, Non-Distended Extremities: No edema, No Calf Tenderness Skin: No rashes, No breakdown Psych/Mental Status: Normal Affect, Appropriate Microbiology Past 72 Hours 07/27/19 20:45 Blood Culture (Wb) - Anticubital Right Blood Culture - Final No growth in 5 days. 07/27/19 20:50 Blood Culture (Wb) - Anticubital Left Blood Culture - Final No growth in 5 days. Laboratory Results 08/02/19 05:15: Sodium 141, Potassium 3.7, Chloride 105, Carbon Dioxide 30.0, Anion Gap 6, BUN 23 H, Creatinine 1.20 H, Estim Creat Clear Calc 27.75, Est GFR (MDRD) Af Amer 55 L, Est GFR (MDRD) Non-Af 46 L, BUN/Creatinine Ratio 19.2, Glucose 109 H, Calcium 8.4 L Current Medications Acetaminophen (Tylenol) 650 mg PO Q6H PRN PRN PRN Reason: Mild pain 1-3/Temp > 100.7 F Last Admin: 08/02/19 04:20 Dose: 650 mg Documented by: Amiodarone HCl (Cordarone) 200 mg PO DAILY [facility] Last Admin: 08/02/19 09:34 Dose: 200 mg Documented by: Apixaban (Eliquis) 2.5 mg PO BID [facility] Last Admin: 08/02/19 09:34 Dose: 2.5 mg Documented by: Aspirin (Ecotrin) 81 mg PO DAILY [facility] Last Admin: 08/02/19 09:34 Dose: 81 mg Documented by: Carvedilol (Coreg) 3.125 mg PO BID [facility] Last Admin: 08/02/19 09:34 Dose: 3.125 mg Documented by: Cyclobenzaprine HCl (Cyclobenzaprine Hcl) 5 mg PO BID [facility] Last Admin: 08/02/19 09:34 Dose: 5 mg Documented by: Duloxetine HCl (Cymbalta) 20 mg PO DAILY [facility] Last Admin: 08/02/19 09:34 Dose: 20 mg Documented by: Fluticasone Propionate (Flonase Nasal [place]) 2 spray NASAL BID PRN PRN PRN Reason: ALLERGIES Furosemide (Lasix) 20 mg IV Q8 [facility] Last Admin: 08/02/19 13:19 Dose: 20 mg Documented by: Levothyroxine Sodium (Synthroid) 50 mcg PO DAILY@0600 [facility] Last Admin: 08/02/19 05:59 Dose: 50 mcg Documented by: Memantine (Namenda) 10 mg PO BID [facility] Last Admin: 08/02/19 09:34 Dose: 10 mg Documented by: [facility] Last Admin: 08/02/19 13:19 Dose: 20 meq Documented by: Senna/Docusate Sodium (Senokot-S, Lorin-Colace) 1 tablet PO DAILY PRN PRN PRN Reason: CONSTIPATION Last Admin: 08/01/19 17:50 Dose: 1 tablet Documented by: Sodium Chloride () 10 - 40 ml IV UD PRN PRN Reason: SALINE FLUSH Last Admin: 08/02/19 05:46 Dose: 20 ml Documented by: Medical Necessity - Tobacco Use Smoking Status: Never smoker Assessment/Plan All Active Problems (Last Reviewed 02/18/19 @ 11:44 by Gary Bullard MD) HFrEF (heart failure with reduced ejection fraction) (Acute) Weakness (Acute) Chronic systolic (congestive) heart failure (Acute) 1. acute HFrEF EF 35% continue furosemide as BP allows no fever, no leukocytosis, but consider abx if s/s PNA develop, or failure to improve despite abx. change furosemide to PO 2. hypotension resolved transient, mostly has been normotensive DC'd losartan, tamsulosin decreased carvedilol to 3.125 BID 3. Urinary retention monitor tamsulosin being held consider periodic straight cath UA negative 4. pAfib anticoagulated on apixaban 5. Dementia continue memantine DC tramadol 6. VTE proph: low risk as already is anticoagulated DW patient's . Code Visit Inpatient E&M: 65286 Subs Hosp L2
[2019-08-02] MEDS: Furosemide 20 MG Tablet PO (17:15)
[2019-08-03] VITALS (10 sets, daily range): BP systolic 99–132; BP diastolic 48–66; PULSE 58–78; RESP 15–17; TEMP 36.2–36.5; O2SAT 91–96
[2019-08-03] MEDS: Levothyroxine 50 MCG Tablet PO (05:35)
[2019-08-03 06:33] LABS: Anion Gap 9 (5-15); BUN 27 mg/dL (7-18); BUN/Creat Ratio 20.5 RATIO (10-20); Calcium,Total 8.9 mg/dL (8.5-10.1); Chloride 105 mmol/L (98-107); Creatinine, Serum 1.32 mg/dL (0.55-1.02); EST Glomerular Filtration Rate 41 mL/min (>60); Est Glom Filt Rate - Afr Amer 50 mL/min (>60); Estimated Creatinine Clearance 25.22 ml/min; Glucose 98 mg/dL (74-106); Potassium 4.3 mmol/L (3.5-5.1); Sodium Level 142 mmol/L (136-145)
--- NOTE | 2019-08-03 08:07 | PCM.DC ---
- Discharge Diagnoses Current Active Problems: Current Active and Chronic Problems (Last Reviewed 02/18/19 @ 11:44 by Gary Bullard MD) Weakness (Acute) You will use the following diet at home:: Cardiac, Fluid restricted (specify 2000 mls, 1500 mls) - 1500 daily Your food should be the consistency of: Regular Your liquids should be the consistency of: Regular/Thin Discharge Activity: Return to Normal Activity Call your doctor if you observe: Fever of 101 or Higher, Shortness of breath Instructions: Taking Medication to Control Heart Failure, Heart Failure: Warning Signs of a Flare-Up, Heart Failure: Tracking Your Weight, Taking Medications for Your Heart, Heart Failure: Being Active Allergies/Adverse Reactions: Allergies Penicillins [PCN] Allergy (Verified 07/27/19 18:16) Rash Medications to take at Discharge Calcium Citrate/Vitamin D3 [Calcium Citrate - Vit D Caplet] 315 ea PO TIDCM 01/05/17 Cholecalciferol (Vitamin D3) [Vitamin D3] 2,000 unit PO DAILY 01/05/17 Amiodarone HCl [Cordarone] 200 mg PO DAILY 10/06/18 Aspirin E.C. [Ecotrin] 81 mg PO DAILY 10/06/18 Dymista 1 puff NASAL BID PRN PRN 10/06/18 Cyanocobalamin (Vitamin B-12) [B-12] 1,000 mcg PO DAILY 11/02/18 levothyroxine 50 mcg capsule 50 mcg PO DAILY 02/18/19 cyclobenzaprine 5 mg tablet 5 mg PO BID tab 05/30/19 duloxetine 20 mg capsule,delayed release 20 mg PO DAILY cap 05/30/19 memantine 5 mg tablet 10 mg PO BID 05/30/19 Acetaminophen [Tylenol Tablet] 650 mg PO Q6H PRN PRN tablet 08/03/19 Apixaban [Eliquis] 2.5 mg PO BID #60 tab 08/03/19 Carvedilol [Coreg (Beta Kori)] 3.125 mg PO BID #60 tab 08/03/19 Furosemide [Lasix] 20 mg PO DAILY #30 tab 08/03/19 The following prescriptions were given: Carvedilol [Coreg (Beta Kori)] 3.125 mg PO BID #60 tab Transmission Status: Pending to [facility] Apixaban [Eliquis] 2.5 mg PO BID #60 tab Transmission Status: Pending to [facility] Furosemide [Lasix] 20 mg PO DAILY #30 tab Transmission Status: Pending to [facility] Orders to be completed after discharge: Basic Metabolic Profile (BMP) Time Frame: 1 Week, Facility: [facility], Location: Laboratory Physical Therapy Evaluation Time Frame: 1 Week, Location: None Selected Primary Care Physician: Ben Loomis MD [Primary Care Provider] - Within 1 Week Test Results: Test results from this visit will be discussed in further detail at your follow-up appointment, if applicable. Please Follow Up With: Gary Bullard MD When: 09/01/19 Proposed Discharge Date: 08/03/19
--- NOTE | 2019-08-03 08:12 | DS.PCM_ITS ---
Discharge Date and Diagnosis - Problem List Patient Problems: Active and Suspected Problems (Last Reviewed 02/18/19 @ 11:44 by Gary Bullard MD) HFrEF (heart failure with reduced ejection fraction) (Acute) Date of Admission: 07/28/19 Date of Discharge: 08/03/19 - Primary Discharge Diagnosis Active and Suspected Problems (Last Reviewed 02/18/19 @ 11:44 by Gary Bullard MD) Weakness (Acute) 1. acute HFrEF * EF 35% * continue furosemide as BP allows * no fever, no leukocytosis, but consider abx if s/s PNA develop, or failure to improve despite abx. * change furosemide to PO * follow up creatinine as outpt. * follow up with Dr. Bullard on 09/01/19 2. hypotension * resolved * transient, mostly has been normotensive * DC'd losartan, tamsulosin * continue decreased carvedilol to 3.125 BID 3. Urinary retention * monitor * tamsulosin being held * consider periodic straight cath * UA negative 4. pAfib * anticoagulated on apixaban 5. Dementia * continue memantine * DC tramadol 6. Debility: has previously declined SNF and HHC. Plan is home with outpt PT. 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 Clinical correlation recommended Electronically Signed: John Horner MD at 20:03 EDT , Service support , Chest CTA 07/27/19 21:22 IMPRESSION: Mild diffuse generalized interstitial thickening with emphysematous changes and multifocal groundglass opacities most pronounced in the upper lobes greater on the right. No evidence for pulmonary embolus. Electronically Signed: John Horner MD at 22:19 EDT , Service support , Chest X-Ray 07/30/19 05:55 IMPRESSION: Increasing bilateral infiltrates, asymmetric and possibly related to infection or other cause of interstitial pneumonitis. Asymmetric edema felt to be less likely given the distribution.. at 0630 Reported and signed by: Sharon Roldan MD Electronically Signed: Sharon Roldan MD at 6:30 EDT Tel , Service support , Chest X-Ray 07/31/19 05:55 IMPRESSION: Stable chest with diffuse interstitial increased lung markings and also upper lobe patchy opacities. Electronically Signed: Juan Luisfani Keyanna, at 7:58 EDT Tel , Service support , Ben Benjamin: pulmonology. Operations: None Procedures: None Summary of Care Provided: The patient is a 83 year old F presents with weakness and hypoxia. Patient was noted to be hypoxic with a pulse ox in the 80% to 70% range. Patient had a CAT scan that showed upper lobe infiltrates versus edema. [place] to be CHF the patient was diuresed and did steadily improved. Pulmonology was consulted and recommended holding off on antibiotics. Patient continued to improve slowly during this hospitalization and is currently on room air. Patient be assessed for amatory pulse ox to see if she may require while she was at home. Given patient's weakness, patient was noted to be totally dependent with ambulation. declined SNF and home health care so plan is for the patient to go home with outpatient therapy. [] Patient Problems: Active and Suspected Problems (Last Reviewed 02/18/19 @ 11:44 by Gary Bullard MD) HFrEF (heart failure with reduced ejection fraction) (Acute) - Physical Exam General: Alert, No apparent distress HEENT: Atraumatic, Normocephalic Oral: Moist Mucosa, No Gingival or Mucosal Lesions/ Ulcerations Neck: No Nodes, Thyroid Normal Size and Texture Lungs: Clear to auscultation, Normal air movement, No rhonchi, No wheeze, No rales Cardiovascular: Regular rate, Regular Rhythm, Normal S1, Normal S2 Abdomen: Bowel Sounds Present, Soft, Non Tender, Non-Distended, No Hepato- splenomegaly Extremities: No edema, No Calf Tenderness Vital Signs Temp Pulse Resp BP Pulse Ox 36.5 C L 60 17 132/62 H 95 08/03/19 03:00 08/03/19 07:00 08/03/19 03:50 08/03/19 03:00 08/03/19 03:50 Oxygen Flow Rate (L/min) [ 4 AMBULATION with Oxygen] Oxygen Flow Rate (L/min) 2.5 Oxygen Delivery Method CPAP Weight: 60.7 kg Body Mass Index (BMI) 26.0 Intake and Output for Last 24 Hours 08/01/19 08/02/19 08/03/19 23:59 23:59 23:59 Intake Total 1144 / 1144 930 / 930 120 / 120 Output Total 200 / 200 1410 / 1410 300 / 300 Balance 944 / 944 -480 / -480 -180 / -180 Microbiology Past 72 Hours 07/27/19 20:45 Blood Culture - Final Blood Culture (Wb) - Anticubital Right No growth in 5 days. 07/27/19 20:50 Blood Culture - Final Blood Culture (Wb) - Anticubital Left No growth in 5 days. Laboratory Tests Past 24 Hrs 07/30/19 08/03/19 05:35 05:45 Sodium 142 Potassium 4.3 Chloride 105 Carbon Dioxide 28.0 Anion Gap 9 BUN 27 H Creatinine 1.32 H Estim Creat Clear Calc 25.22 Est GFR (MDRD) Af Amer 50 L Est GFR (MDRD) Non-Af 41 L BUN/Creatinine Ratio 20.5 H Glucose 98 Calcium 8.9 Procalcitonin 0.10 H Discharge Diet: Low fat/ Low Cholesterol, 6 Cup Fluid Restriction, 2000 mg Sodium Diet Discharge Activity: Return to Normal Activity Call your doctor if you observe: Fever of 101 or Higher, Shortness of breath Home Medications: Medications to take at Discharge Calcium Citrate/Vitamin D3 [Calcium Citrate - Vit D Caplet] 315 ea PO TIDCM 01/05/17 Cholecalciferol (Vitamin D3) [Vitamin D3] 2,000 unit PO DAILY 01/05/17 Amiodarone HCl [Cordarone] 200 mg PO DAILY 10/06/18 Aspirin E.C. [Ecotrin] 81 mg PO DAILY 10/06/18 Dymista 1 puff NASAL BID PRN PRN 10/06/18 Cyanocobalamin (Vitamin B-12) [B-12] 1,000 mcg PO DAILY 11/02/18 levothyroxine 50 mcg capsule 50 mcg PO DAILY 02/18/19 cyclobenzaprine 5 mg tablet 5 mg PO BID tab 05/30/19 duloxetine 20 mg capsule,delayed release 20 mg PO DAILY cap 05/30/19 memantine 5 mg tablet 10 mg PO BID 05/30/19 Acetaminophen [Tylenol Tablet] 650 mg PO Q6H PRN PRN tablet 08/03/19 Apixaban [Eliquis] 2.5 mg PO BID #60 tab 08/03/19 Carvedilol [Coreg (Beta Kori)] 3.125 mg PO BID #60 tab 08/03/19 Furosemide [Lasix] 20 mg PO DAILY #30 tab 08/03/19 Following Prescrptions Were Given to Patient: Carvedilol [Coreg (Beta Kori)] 3.125 mg PO BID #60 tab Transmission Status: Pending to [facility] Apixaban [Eliquis] 2.5 mg PO BID #60 tab Transmission Status: Pending to [facility] Furosemide [Lasix] 20 mg PO DAILY #30 tab Transmission Status: Pending to [facility] Other Amb Orders: Basic Metabolic Profile (BMP) Time Frame: 1 Week, Facility: [facility], Location: Laboratory Physical Therapy Evaluation Time Frame: 1 Week, Location: None Selected Primary Care Physician: Ben Loomis MD [Primary Care Provider] - Within 1 Week Please Follow Up With: Gary Bullard MD When: 09/01/19 Patient Instructions: Taking Medication to Control Heart Failure, Heart Failure: Warning Signs of a Flare-Up, Heart Failure: Tracking Your Weight, Heart Failure: Being Active, Taking Medications for Your Heart Disposition: Home Minutes spent on discharge:: 32 Patient Condition:: Fair Medical Necessity - Tobacco Use Smoking Status: Never smoker Meaningful Use Info Meaningful Use Diagnoses (Choose all that apply): CHF - CHF TENA/ARB ordered at discharge?: No Reason TENA/ARB not ordered?: Hypotension Documented LVEF (%): 35 Code Visit Inpatient E&M: 93983 Disch Hosp
[2019-08-03] MEDS: Aspirin E.C. 81 MG Tablet PO (09:13)
[2019-08-03] MEDS: Carvedilol 3.125 MG TABLET PO (09:13)
[2019-08-03] MEDS: Furosemide 20 MG Tablet PO ×2 (09:13→17:08)
[2019-08-03] MEDS: cycloBENZAPRine HCl 5 MG TABLET PO (09:13)
[2019-08-03] MEDS: DULoxetine Hcl 20 MG Capsule PO (09:13)
[2019-08-03] MEDS: Amiodarone 200 MG Tablet PO (09:13)
[2019-08-03] MEDS: Memantine Hydrochloride 10 MG Tablet PO (09:14)
[2019-08-03] MEDS: APIXABAN 2.5 MG TABLET PO (09:14)
--- NOTE | 2019-08-03 10:08 | PHA.DC.MC ---
Pharmacy Service has performed discharge medication reconciliation and counseling for this patient. 1. APIXABAN 2.5MG PO BID 2. FUROSEMIDE 20MG PO DAILY 3. CARVEDILOL 3.125MG PO BID The patient's discharge medication list was reviewed for discrepancies and discrepancies were resolved. Home Medications Calcium Citrate/Vitamin D3 [Calcium Citrate - Vit D Caplet] 315 ea PO TIDCM 01/05/17 Cholecalciferol (Vitamin D3) [Vitamin D3] 2,000 unit PO DAILY 01/05/17 Amiodarone HCl [Cordarone] 200 mg PO DAILY 10/06/18 Aspirin E.C. [Ecotrin] 81 mg PO DAILY 10/06/18 Dymista 1 puff NASAL BID PRN PRN 10/06/18 Cyanocobalamin (Vitamin B-12) [B-12] 1,000 mcg PO DAILY 11/02/18 levothyroxine 50 mcg capsule 50 mcg PO DAILY 02/18/19 cyclobenzaprine 5 mg tablet 5 mg PO BID tab 05/30/19 duloxetine 20 mg capsule,delayed release 20 mg PO DAILY cap 05/30/19 memantine 5 mg tablet 10 mg PO BID 05/30/19 Acetaminophen [Tylenol Tablet] 650 mg PO Q6H PRN PRN tab 08/03/19 Apixaban [Eliquis] 2.5 mg PO BID #60 tab 08/03/19 Carvedilol [Coreg (Beta Kori)] 3.125 mg PO BID #60 tab 08/03/19 Furosemide [Lasix] 20 mg PO DAILY #30 tab 08/03/19 The patient/family was counseled on the following discharge medications and changes in medications for homegoing were reviewed. The Reason for Use, instructions for use, and potential side effects were reviewed for all new medications. The patient's/family's questions regarding all of their medications were answered. The patient/family was able to verbally demonstrate an understanding of their discharge medications.
--- NOTE | 2019-08-03 10:32 | PCM.PN.PUL ---
Patient Problems: Active and Suspected Problems (Last Reviewed 02/18/19 @ 11:44 by Gary Bullard MD) HFrEF (heart failure with reduced ejection fraction) (Acute) Subjective: Patient did well overnight. Patient has tolerated room air while at rest. Patient did require 2 L nasal cannula with exertion. Patient was on CPAP overnight and tolerated well. Patient did not have a bowel movement following MiraLAX yesterday. Patient reports no change in abdominal symptoms. - Physical Exam General: Alert, Oriented x3, Cooperative, No apparent distress, - - Appears stated age. No conversational dyspnea. HEENT: Atraumatic, PERRLA, EOMI, Normocephalic, - - Scleral icterus or injection noted Oral: Moist Mucosa, No Gingival or Mucosal Lesions/ Ulcerations Neck: Supple, No Nodes, Trachea Midline Lungs: No rhonchi, No wheeze, No rales, Diminished Cardiovascular: Regular rate, Regular Rhythm, Normal S1, Normal S2, No rub noted, No Gallop Abdomen: Bowel Sounds Present, Soft, Non Tender, Non-Distended Extremities: No clubbing, No cyanosis, Edema - Trace to 1+ Skin: - - No change compared to previous Musculoskeletal: No Tenderness to Palpation of Joints or Extremities Lymphatic: No Cervical, Supraclavicular, or Inguinal Adenopathy Neurological: Cranial nerves II-XII grossly intact, Neuro grossly intact, Motor Exam 5/5 strength throughout Psych/Mental Status: Appropriate, Flat Affect Vital Signs Temp Pulse Resp BP Pulse Ox 36.2 C L 71 16 99/66 93 08/03/19 09:40 08/03/19 09:40 08/03/19 09:40 08/03/19 09:40 08/03/19 09:40 Oxygen Flow Rate (L/min) [ 4 AMBULATION with Oxygen] Oxygen Flow Rate (L/min) 2.5 Oxygen Delivery Method Room Air Weight: 60.7 kg Body Mass Index (BMI) 26.0 Intake and Output for Last 24 Hours 08/01/19 08/02/19 08/03/19 23:59 23:59 23:59 Intake Total 1144 / 1144 930 / 930 120 / 120 Output Total 200 / 200 1410 / 1410 300 / 300 Balance 944 / 944 -480 / -480 -180 / -180 Microbiology Past 72 Hours 07/27/19 20:45 Blood Culture - Final Blood Culture (Wb) - Anticubital Right No growth in 5 days. 07/27/19 20:50 Blood Culture - Final Blood Culture (Wb) - Anticubital Left No growth in 5 days. Laboratory Tests Past 24 Hrs 07/30/19 08/03/19 05:35 05:45 Sodium 142 Potassium 4.3 Chloride 105 Carbon Dioxide 28.0 Anion Gap 9 BUN 27 H Creatinine 1.32 H Estim Creat Clear Calc 25.22 Est GFR (MDRD) Af Amer 50 L Est GFR (MDRD) Non-Af 41 L BUN/Creatinine Ratio 20.5 H Glucose 98 Calcium 8.9 Procalcitonin 0.10 H Medical Necessity - Tobacco Use Smoking Status: Never smoker Assessment/Plan All Active Problems (Last Reviewed 02/18/19 @ 11:44 by Gary Bullard MD) HFrEF (heart failure with reduced ejection fraction) (Acute) Weakness (Acute) Chronic systolic (congestive) heart failure (Acute) RECOMMENDATIONS: 1. Diuretic therapy per cardiology 2. No indication for antibiotics from a pulmonary perspective 3. Isiah oximetry prior to discharge. Supplemental oxygen as indicated 4. Encourage incentive spirometer use and mobilize patient as tolerated. 5. Aggressive bowel regimen 6. Likely sufficient to follow-up with cardiology as an outpatient only. Patient should follow-up routinely with Dr. Torres IMPRESSIONS: 1. Acute hypoxemic respiratory failure Patient has had an elevation in creatinine, but states this is her baseline at approximately 1.2. Patient has responded very well to diuretic therapy. No fever was noted overnight. No indication for empiric antibiotic therapy. Patient appears to have hypoxia secondary to diastolic congestive heart failure. Reasonable to follow-up with cardiology. Routine outpatient follow-up with Dr. Torres is reasonable following discharge. Patient can continue with nocturnal CPAP therapy per Dr. Torres 2. Acute on chronic combined systolic and diastolic heart failure Continue medical optimization under the discretion of cardiology. 3. Personal history of sleep apnea Currently under the care of Dr. Torres. Continue nocturnal Pap therapy per outpatient regimen. 4. Advanced age and deconditioning/paroxysmal atrial fibrillation/hypothyroidism/depression/dementia/hypertension Complicates care, management, recovery and prognosis. Continue home medications as indicated. Code Visit Inpatient E&M: 78444 Subs Hosp L2
[2019-08-03] MEDS: Magnesium Citrate 300 ML 150 ML PO ×2 (11:42→15:07)
--- NOTE | 2019-08-03 15:50 | CASEMGMT ---
Patient's is undecided if he wants patient to go to TCU or not. SW called and they are still holding a bed for patient. Plan: home with vs TCU Jimena HAIRSTON MSW
--- NOTE | 2019-08-03 16:00 | CASEMGMT ---
AIDA spoke with Zenaida and if patient's decides he wants TCU she can go today. AIDA notified RN and charge attendant. Plan; d/c to home vs TCU. Jimena HAIRSTON MSW
--- NOTE | 2019-08-03 16:14 | TREXTCAR_ITS ---
- Diet 07/28/19 00:10 Diet: Cardiac/Low Cholesterol Food consistency:: Regular Liquid Consistency:: Regular/Thin 1500 cc/day - Routine Orders/Code Status Enema Type: Fleetz Enema Frequency: Daily PRN Suppository Type: Dulcolax 10mg Suppository Frequency: Daily PRN Code [facility] - Therapies Physical Therapy: Eval and Treat Occupational Therapy: Eval and Treat - Allergies/Procedures Done in Hospital Allergies/Adverse Reactions: Allergies Penicillins [PCN] Allergy (Verified 07/27/19 18:16) Rash - Type of Care/Length of Stay Estimated LOS: Convalescent Care Less Than 30 days Type of Care Needed: Skilled Rehab Potential: Fair Prognosis: Good - Additional Orders/Day of Discharge Day of Discharge: 08/03/19 - Dietary and Speech Recommendations Dietitian Recommendations/Changes: Suggest diet change to cardiac/low sodium. - Follow Up Care Primary Care Physician: Ben Loomis MD [Primary Care Provider] - Within 1 Week Please Follow Up With: Gary Bullard MD When: 09/01/19 Please Follow Up With: Ben Loomis MD
--- NOTE | 2019-08-03 18:02 | NURSING ---
pt dc'd to tcu with all belongings via wc per [employer] staff
== END 2019-08-03 17:57 | disposition skilled nursing facility (03) | DRG 291 ==
LOC: ED 19:56 → PCU 23:30
PROVIDERS: Internal Medicine; Internal Medicine Critical Care Medicine; Admitting Provider Family Medicine; Emergency Provider Emergency Medicine; Family Provider Internal Medicine; PCP Internal Medicine
DX: I11.0 Hypertensive heart disease with heart failure (principal); J96.01 Acute respiratory failure with hypoxia; I50.21 Acute systolic (congestive) heart failure; M48.061 Spinal stenosis, lumbar region without neurogenic claudication; I25.5 Ischemic cardiomyopathy; Z66 Do not resuscitate; E03.9 Hypothyroidism, unspecified; I48.0 Paroxysmal atrial fibrillation; R33.9 Retention of urine, unspecified; F03.90 Unspecified dementia, unspecified severity, without behavioral disturbance, psychotic disturbance, mood disturbance, and anxiety; I35.1 Nonrheumatic aortic (valve) insufficiency; I27.21 Secondary pulmonary arterial hypertension; I34.0 Nonrheumatic mitral (valve) insufficiency; R53.81 Other malaise; Z79.01 Long term (current) use of anticoagulants; I95.9 Hypotension, unspecified; Z85.3 Personal history of malignant neoplasm of breast; G47.31 Primary central sleep apnea
CPT/HCPCS: 36415; 71045; 71275; 80048; 81001; 83880; 84145; 84484; 85025; 85379; 85610; 87040; 92610; 93005; 94003; 94640; 94660; 97110; 97116; 97162; 97166; 97530; 97535; 97802; 99285; J7030; Q9967; A4216; J1940

== ENCOUNTER 2019-08-03 18:10 | Inpatient (IN) | payer MEDICARE, OTHER, SELFPAY ==
[2019-07-28 00:04] VITALS: BMI 26.0
[2019-08-03 18:41] VITALS: BP 120/49; PULSE 70; RESP 20; TEMP 36.9; O2SAT 99
[2019-08-03 19:50] VITALS: BMI 24.9
[2019-08-03 19:55] VITALS: BMI 24.9
[2019-08-03 20:05] VITALS: PULSE 68; O2SAT 98
[2019-08-03 21:19] VITALS: BP 102/45; PULSE 65; RESP 18; TEMP 36.6; O2SAT 96
[2019-08-03] MEDS: cycloBENZAPRine HCl 5 MG TABLET PO (21:30)
[2019-08-03] MEDS: APIXABAN 2.5 MG TABLET PO (21:31)
[2019-08-03] MEDS: Memantine Hydrochloride 10 MG Tablet PO (21:32)
--- NOTE | 2019-08-03 22:01 | HP.PCM_ITS ---
Problem List (1) Debility Status: Acute (2) Acute on chronic systolic heart failure Status: Acute (3) Hypotension Status: Acute (4) Urinary retention Status: Chronic (5) Stroke Status: Chronic (6) Atrial fibrillation Status: Chronic (7) Vascular dementia Status: Chronic (8) Expressive aphasia Status: Chronic (9) Allergic rhinitis Status: Chronic (10) Hypothyroidism Status: Chronic (11) Muscle spasm Status: Chronic (12) Hypertension Status: Chronic History of Present Illness Date of Admission: 08/03/19 Chief Complaint: Here for rehabilitation, strengthening, prior to discharge home with . The patient is a 83 year old Female with below past medical history presented to [facility] Emergency Department with generalized weakness. 07/27/2019 EKG normal sinus rhythm, left axis deviation, left bundle branch block. 07/27/2019 CTA chest negative pulmonary embolism, showed interstitial thickening, emphysema, ground glass appearance bilateral upper lobes worse on right. Generalized weakness x 3 to 4 days, Increasing confusion. Increasing falls without injury, Low back pain, history of urinary tract infections. WBC 6.3, Hemoglobin 12, Hematocrit 38, Platelet 226. BMP okay, INR 1.5, Troponin 0.15. Oxygen, aerosol, Solu-Medrol IV given. 07/27/2019 Admit to Hospital. CPAP, IV steroids, aerosols for alveolitis. PT/OT for debility. 07/28/2019 Dr. Szymanski noted elevated BNP, trial of Lasix x 1 dose to see if helpful. 07/29/2019 Lasix for acute systolic congestive heart failure. Eliquis for atrial fibrillation. 07/30/2019 Hypotension from Lasix 40MG IV, given lower doses. 07/31/2019 Lasix 20MG IV Q8H for acute systolic heart failure. 08/01/2019 Lasix as tolerated by blood pressure. Losartan, Tamsulosin stopped due to hypotension. Coreg lowered to 3.125MG twice day due to hypotension. Periodic straight cath for urinary retention. 08/02/2019 IV Lasix changed to PO Lasix. 08/03/2019 Admit to TCU with debility, here for rehabilitation, strengthening, prior to discharge home with . Past Medical History Past Medical History (Chronic Problems): Chronic Problems (Last Reviewed 02/18/19 @ 11:44 by Gary Bullard MD) Urinary retention (Chronic) Stroke (Chronic) Atrial fibrillation (Chronic) Vascular dementia (Chronic) Expressive aphasia (Chronic) Allergic rhinitis (Chronic) Hypothyroidism (Chronic) Muscle spasm (Chronic) Hypertension (Chronic) Essential (primary) hypertension (Chronic) History of breast cancer (Chronic) 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) last ECHO with a 35 % EF Secondary pulmonary arterial hypertension (Chronic) Nonrheumatic aortic valve insufficiency (Chronic) Nonrheumatic mitral (valve) insufficiency (Chronic) Non-rheumatic tricuspid valve insufficiency (Chronic) Paroxysmal atrial fibrillation (Chronic) [facility] (current) use of anticoagulants (Chronic) Medical History: Medical History (Last Reviewed 02/18/19 @ 11:44 by Gary Bullard MD) Essential (primary) hypertension (Chronic) I10 History of breast cancer (Chronic) Z85.3 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) I43 last ECHO with a 35 % EF Secondary pulmonary arterial hypertension (Chronic) I27.21 Nonrheumatic aortic valve insufficiency (Chronic) I35.1 Nonrheumatic mitral (valve) insufficiency (Chronic) I34.0 Non-rheumatic tricuspid valve insufficiency (Chronic) I36.1 Paroxysmal atrial fibrillation (Chronic) I48.0 Chronic systolic (congestive) heart failure (Acute) I50.22 [facility] (current) use of anticoagulants (Chronic) Z79.01 Hypothyroidism E03.9 Anxiety and depression F41.9, F32.9 Dementia F03.90 Expressive aphasia R47.01 Joint pain M25.50 Breast cancer C50.919 Allergies Penicillins [PCN] Allergy (Verified 07/27/19 18:16) Rash Home Medications: Ambulatory Orders Medication Instructions Recorded Calcium Citrate/Vitamin D3 315 ea PO TIDCM 01/05/17 [Calcium Citrate - Vit D Caplet] Cholecalciferol (Vitamin D3) 2,000 unit PO DAILY 01/05/17 [Vitamin D3] Amiodarone HCl [Cordarone] 200 mg PO DAILY 10/06/18 Aspirin E.C. [Ecotrin] 81 mg PO DAILY 10/06/18 Dymista 1 puff NASAL BID PRN PRN 10/06/18 Cyanocobalamin (Vitamin B-12) 1,000 mcg PO DAILY 11/02/18 [B-12] levothyroxine 50 mcg capsule 50 mcg PO DAILY 02/18/19 cyclobenzaprine 5 mg tablet 5 mg PO BID tab 05/30/19 duloxetine 20 mg capsule,delayed 20 mg PO DAILY cap 05/30/19 release memantine 5 mg tablet 10 mg PO BID 05/30/19 Acetaminophen [Tylenol Tablet] 650 mg PO Q6H PRN PRN tab 08/03/19 Apixaban [Eliquis] 2.5 mg PO BID 08/03/19 Carvedilol [Coreg (Beta Kori)] 3.125 mg PO BID 08/03/19 Furosemide [Lasix] 20 mg PO DAILY 08/03/19 Surgical History: Surgical History (Last Reviewed 02/18/19 @ 11:44 by Gary Bullard MD) H/O right mastectomy Z90.11 Surgical History: appendectomy, cataract, mastectomy - Right., - - Lumpectomy, tubal ligation, right breast mass biopsy. 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 Denies: Chills, Fever, Weight Change HEENT: Denies: Head Aches, Sinus Congestion, Sinus Drainage Cardiovascular: Denies: Chest Pain, Palpitations Respiratory: Denies: Cough, Shortness of breath at rest, Sputum production Gastrointestinal: Denies: Abdominal Pain, Nausea, Vomiting Genitourinary: Denies: Dysuria Musculoskeletal: Denies: Joint Pain, Joint Tenderness Skin: Denies: Rash, Wounds Neurological: Denies: Numbness, Tingling, Focal weakness Psychiatric: Denies: Anxiety, Depression, Homicidal Ideations, Suicidal Ideations Hematologic/ Lymphatic: Denies: Easy Bruising, Easy Bleeding VTE Information - Inpt Only VTE Present on Admission: No VTE Mechan Device Prophylaxis: Knee High CRISTIAN Hose VTE Pharm Prophylaxis ordered?: No Reason prophylaxis not ordered:: Treatment Not Indicated Patient Problems: Active and Suspected Problems (Last Reviewed 02/18/19 @ 11:44 by Gary Bullard MD) Debility (Acute) Acute on chronic systolic heart failure (Acute) Hypotension (Acute) - Physical Exam General: Alert, Oriented x3, Cooperative HEENT: Atraumatic, PERRLA, EOMI, Normocephalic Neck: Supple, No JVD, Negative Carotid Bruits Lungs: Clear to auscultation, Normal air movement Cardiovascular: Regular rate, No murmurs Abdomen: Bowel Sounds Present, Soft, Non Tender Extremities: No edema, Capillary Refill Less than 3 Seconds Skin: No rashes, No breakdown Musculoskeletal: No Tenderness to Palpation of Joints or Extremities Neurological: Cranial nerves II-XII grossly intact Psych/Mental Status: Normal Affect, Appropriate Vital Signs Temp Pulse Resp BP Pulse Ox 97.8 F 65 18 102/45 L 96 08/03/19 21:19 08/03/19 21:19 08/03/19 21:19 08/03/19 21:19 08/03/19 21:19 Oxygen Delivery Method Room Air Weight: 59.874 kg Body Mass Index (BMI) 24.9 Intake and Output for Last 24 Hours 08/01/19 08/02/19 08/03/19 23:59 23:59 23:59 Intake Total 0 / 0 Balance 0 / 0 Assessment/Plan All Active Problems (Last Reviewed 02/18/19 @ 11:44 by Gary Bullard MD) Debility (Acute) Acute on chronic systolic heart failure (Acute) Hypotension (Acute) HFrEF (heart failure with reduced ejection fraction) (Acute) Weakness (Acute) Chronic systolic (congestive) heart failure (Acute) 83 year old female with below past medical history hospitalized for acute respiratory failure secondary to acute on chronic systolic congestive heart failure, admitted to TCU with debility, here for rehabilitation, strengthening, prior to discharge home with . * Debility - PT/OT. * Pain - Tylenol 1000MG Q6H PRN mild pain. * Bowel - Miralax 17GM daily, Senna/colace 1 tablet BID, Dulcolax 10MG PRN daily PRN. * Pneumonia vaccination - Administer Prevnar 13 and/or Pneumovax 23 as necessary. * DVT prophylaxis - Not necessary, already on Eliquis. * Atrial fibrillation - Coreg 3.125MG BID, Amiodarone 200MG daily, Eliquis 2.5MG BID. * Stroke - Eliquis 2.5MG BID, Aspirin 81MG daily, combination of Eliquis and Aspirin increases risk of bleeding without further reducing risk of stroke, if okay with Dr. Ramirez, will stop Aspirin 81MG daily. * Calcium deficiency - [place]scal D TID. * Acute on chronic systolic heart failure - Coreg 3.125MG BID, Lasix 20MG daily, consider Entresto for comfort. Would decrease risk of , hospitalization from heart failure, but more importantly, improve her quality of life in the time she has left, will discuss with . * Vitamin D deficiency - D3 2000IU daily.. * Vitamin B12 deficiency - B12 1000MCG daily. * Muscle spasm - Flexeril 5MG BID, necessary? * Depression - Duloxetine 20MG daily. * Nutrition - Ensure Enlive 120ML 4x/day. * Hypothyroidism - Levothyroxine 50MCG daily. * Vascular dementia - Memantine 10MG BID.
[2019-08-04 05:48] VITALS: BP 112/46; PULSE 55; RESP 16; O2SAT 95
[2019-08-04 05:50] LABS: Absolute Lymphocyte Count 0.89 X10^3/uL (0.83-4.51); Absolute Neutrophil Count 5.1 X10^3/uL (2.0-7.7); Basophil# 0.09 X10^3/uL; Basophil% 1.3 % (0-1); Eosinophil# 0.27 X10^3/uL; Eosinophils% 3.8 % (0-5); Hematocrit 34.4 % (37-47); Hemoglobin 10.9 g/dL (12.0-15.0); Lymphocyte # 0.89 X10^3/ul (4.0); Lymphocyte % 12.4 % (19-41); Mean Corp Hgb Conc 31.7 g/dL (32-36); Mean Corpuscular Hgb 31.1 pg (27.0-32.0); Mean Platelet Vol. 10.2 fl (6.2-12.0); Monocyte# 0.71 X10^3/uL; Monocyte% 9.9 % (0-10); NRBC Flagged by Analyzer 0 % (0-5); Neutrophil # 5.12 X10^3/uL (2.7-7.7); Neutrophil % 71.5 % (47-70); Platelet Count 393 K/mm3 (150-450); RBC Distribution Width CV 14.5 % (11.6-14.6); RBC Distribution Width SD 51.9 fl (35.1-43.9); Red Blood Count 3.51 M/mm3 (4.2-5.4); White Blood Count 7.2 K/mm3 (4.4-11.0)
[2019-08-04 06:03] LABS: Anion Gap 8 (5-15); BUN 24 mg/dL (7-18); BUN/Creat Ratio 17.6 RATIO (10-20); Calcium,Total 8.6 mg/dL (8.5-10.1); Chloride 106 mmol/L (98-107); Creatinine, Serum 1.36 mg/dL (0.55-1.02); EST Glomerular Filtration Rate 40 mL/min (>60); Est Glom Filt Rate - Afr Amer 48 mL/min (>60); Estimated Creatinine Clearance 24.48 ml/min; Glucose 100 mg/dL (74-106); Potassium 4.7 mmol/L (3.5-5.1); Sodium Level 143 mmol/L (136-145)
[2019-08-04] MEDS: Levothyroxine 50 MCG Tablet PO (06:08)
[2019-08-04] MEDS: APIXABAN 2.5 MG TABLET PO ×2 (06:08→18:39)
[2019-08-04] MEDS: cycloBENZAPRine HCl 5 MG TABLET PO ×2 (06:09→18:39)
[2019-08-04] MEDS: Cyanocobalamin 500 MCG Tablet 1000 MCG PO (06:09)
[2019-08-04] MEDS: Furosemide 20 MG Tablet PO (06:09)
[2019-08-04] MEDS: DULoxetine Hcl 20 MG Capsule PO (06:12)
[2019-08-04] MEDS: Senna/Docusate Sodium 1 Tablet PO ×2 (06:12→18:39)
[2019-08-04] MEDS: Polyethylene Glycol 3350 17 GM PACKET PO (06:12)
[2019-08-04] MEDS: Memantine Hydrochloride 10 MG Tablet PO ×2 (06:14→18:39)
[2019-08-04] MEDS: Amiodarone 200 MG Tablet PO (06:14)
[2019-08-04] MEDS: Aspirin E.C. 81 MG Tablet PO (07:52)
[2019-08-04] MEDS: Calcium Carb/Vitamin D 1 TABLET Tablet PO ×3 (07:52→18:39)
[2019-08-04] MEDS: Tuberculin,Purif.prot.deriv. 50 TU/ML Vial 5 ML ID (09:54)
--- NOTE | 2019-08-04 14:27 | CASEMGMT ---
Social Work Met with patient for initial assessment. Inquired about suicidal ideations, pt reports to thoughts of suicide since the start of health issues about 8 years ago. Pt has pills to take that is not aware of, if her health issues become too debilitating. Pt explained her father in law in 2011 and had strong sleep pills that she kept. She stated she would use those pills. She has multiple bottles with the pills so if one bottle was found, she still has others. Pt reported to testing out one pill for its potency a couple months ago, and it knocked her out so she knew it still worked. No current thoughts - states I don't sign up for this - 82 isn't exactly your ba years. Pt was very open about thoughts and plan, and was not afraid to complete suicide if the situation presented itself at home. Notified SW assistant nurse manager and a further assessment will be completed. Will continue to monitor pt. Nayeli Reveles, CYNTHIA GUILLENW
[2019-08-04 15:07] VITALS: BP 124/55; PULSE 59; RESP 20; TEMP 37.1; O2SAT 94
[2019-08-04 18:37] VITALS: PULSE 61
[2019-08-04] MEDS: Carvedilol 3.125 MG TABLET PO (18:39)
[2019-08-04] MEDS: Acetaminophen 500 MG Tablet 1000 MG PO (20:42)
[2019-08-05] MEDS: Polyethylene Glycol 3350 17 GM PACKET PO (05:07)
[2019-08-05] MEDS: DULoxetine Hcl 20 MG Capsule PO (05:07)
[2019-08-05] MEDS: Levothyroxine 50 MCG Tablet PO (05:07)
[2019-08-05] MEDS: Memantine Hydrochloride 10 MG Tablet PO ×2 (05:07→17:09)
[2019-08-05] MEDS: cycloBENZAPRine HCl 5 MG TABLET PO ×2 (05:07→17:08)
[2019-08-05] MEDS: Senna/Docusate Sodium 1 Tablet PO ×2 (05:07→17:09)
[2019-08-05] MEDS: APIXABAN 2.5 MG TABLET PO ×2 (05:07→17:08)
[2019-08-05] MEDS: Amiodarone 200 MG Tablet PO (05:07)
[2019-08-05] MEDS: Carvedilol 3.125 MG TABLET PO ×2 (05:07→17:08)
[2019-08-05] MEDS: Cyanocobalamin 500 MCG Tablet 1000 MCG PO (05:07)
[2019-08-05] MEDS: Furosemide 20 MG Tablet PO (05:07)
[2019-08-05] MEDS: Calcium Carb/Vitamin D 1 TABLET Tablet PO ×3 (07:38→17:08)
--- NOTE | 2019-08-05 08:20 | PCM.PN.RX ---
<Sloan Salgado D - Last Filed: 08/05/19 08:20> Progress Note - Pharmacy Subjective: TCU Admission Objective: Allergies Penicillins [PCN] Allergy (Verified 07/27/19 18:16) Rash Current Medications Generic Name Dose Route Start Last Admin Trade Name Freq PRN Reason Stop Dose Admin Acetaminophen 1,000 mg 08/03/19 22:22 08/04/19 20:42 Tylenol PO 1,000 mg Q6H PRN PRN Administration Pain Score 1-3/10 Amiodarone HCl 200 mg 08/04/19 06:00 08/05/19 05:07 Cordarone PO 200 mg DAILY YARY Administration Apixaban 2.5 mg 08/03/19 22:00 08/05/19 05:07 Eliquis PO 2.5 mg BID YARY Administration Bisacodyl 10 mg 08/03/19 18:51 Dulcolax RECTAL DAILY PRN CONSTIPATION Calcium/Vitamin D 1 tablet 08/04/19 07:45 08/05/19 07:38 Os-Raymond 500mg + D PO 1 tablet TIDCM YARY Administration Carvedilol 3.125 mg 08/03/19 22:00 08/05/19 05:07 Coreg PO 3.125 mg BID YARY Administration Cholecalciferol 2,000 unit 08/04/19 06:00 08/05/19 05:07 Vitamin D PO 2,000 unit DAILY YARY Administration Cyanocobalamin 1,000 mcg 08/04/19 06:00 08/05/19 05:07 Vitamin B12 PO 1,000 mcg DAILY YARY Administration Cyclobenzaprine HCl 5 mg 08/03/19 22:00 08/05/19 05:07 Cyclobenzaprine Hcl PO 5 mg BID YARY Administration Duloxetine HCl 20 mg 08/04/19 06:00 08/05/19 05:07 Cymbalta PO 20 mg DAILY YARY Administration Furosemide 20 mg 08/04/19 06:00 08/05/19 05:07 Lasix PO 20 mg DAILY YARY Administration Levothyroxine Sodium 50 mcg 08/04/19 06:00 08/05/19 05:07 Synthroid PO 50 mcg DAILY@0600 YARY Administration Memantine 10 mg 08/03/19 22:00 08/05/19 05:07 Namenda PO 10 mg BID YARY Administration Nutritional Formula (Lactose Free) 120 ml 08/03/19 22:00 08/05/19 05:09 Ensure Enlive PO 120 ml 4X/DAY YARY Administration Polyethylene Glycol 17 gm 08/04/19 06:00 08/05/19 05:07 Miralax PO 17 gm DAILY YARY Administration Senna/Docusate Sodium 1 tablet 08/04/19 06:00 08/05/19 05:07 Senokot-S, Lorin-Colace PO 1 tablet BID YARY Administration Tuberculin PPD 5 tu 08/11/19 10:00 Tubersol, Aplisol, Ppd ID 08/11/19 10:01 X1 ONE Problem List (Last Reviewed 02/18/19 @ 11:44 by Gary Bullard MD) Debility (Acute) Acute on chronic systolic heart failure (Acute) Hypotension (Acute) Urinary retention (Chronic) Stroke (Chronic) Atrial fibrillation (Chronic) Vascular dementia (Chronic) Expressive aphasia (Chronic) Allergic rhinitis (Chronic) Hypothyroidism (Chronic) Muscle spasm (Chronic) Hypertension (Chronic) Vital Signs Temp Pulse Resp BP Pulse Ox 98.8 F 61 20 H 124/55 H 94 08/04/19 15:07 08/04/19 18:37 08/04/19 15:07 08/04/19 15:07 08/04/19 15:07 Oxygen Flow Rate (L/min) 2 Oxygen Delivery Method Room Air Weight: 59.874 kg Body Mass Index (BMI) 24.9 Sodium 143 mmol/L (136-145) 08/04/19 05:10 Potassium 4.7 mmol/L (3.5-5.1) 08/04/19 05:10 Chloride 106 mmol/L (98-107) 08/04/19 05:10 Carbon Dioxide 29.0 mmol/L (21.0-32.0) 08/04/19 05:10 Anion Gap 8 (5-15) 08/04/19 05:10 BUN 24 mg/dL (7-18) H 08/04/19 05:10 Creatinine 1.36 mg/dL (0.55-1.02) H 08/04/19 05:10 Est GFR (MDRD) Af Amer 48 mL/min (>60) L 08/04/19 05:10 Est GFR (MDRD) Non-Af 40 mL/min (>60) L 08/04/19 05:10 BUN/Creatinine Ratio 17.6 RATIO (10-20) 08/04/19 05:10 Glucose 100 mg/dL (74-106) 08/04/19 05:10 Assessment/Plan: 1) Pain APAP for pain score 1-3, cyclobenzaprine. Continue to monitor prn medication use, daily pain scores. 2) AFib/Heart Failure/stroke Amiodarone, apixaban, carvedilol, furosemide, ASA d/c'ed. Continue to monitor BP/HR, s/s bleeding/clot, renal function, electrolytes. 3) Vascular Dementia Memantine. Continue to monitor clinically. 4) Hypothyroidism Levothyroxine. Continue to monitor s/s hyper/hypothyroidism. 5) Nutrition Ca/D, B12, Ensure. Continue to monitor clinically. Psychotropic Medications: 6) Depression Duloxetine. Continue to monitor s/s depression. Unnecessary Medications: None Bowel Regimen: 7) Senna/s, PEG, prn bisacodyl. Continue to monitor prn medication use, for constipation/diarrhea. Date of Note:: 08/05/19 - Provider Comments Provider responsibility: Provider responsible to enter orders to implement recommendations <Karl Cortes Chi - Last Filed: 08/05/19 13:26> Progress Note - Pharmacy Subjective: [] Objective: Allergies Penicillins [PCN] Allergy (Verified 07/27/19 18:16) Rash Current Medications Generic Name Dose Route Start Last Admin Trade Name Freq PRN Reason Stop Dose Admin Acetaminophen 1,000 mg 08/03/19 22:22 08/04/19 20:42 Tylenol PO 1,000 mg Q6H PRN PRN Administration Pain Score 1-3/10 Amiodarone HCl 200 mg 08/04/19 06:00 08/05/19 05:07 Cordarone PO 200 mg DAILY YARY Administration Apixaban 2.5 mg 08/03/19 22:00 08/05/19 05:07 Eliquis PO 2.5 mg BID YARY Administration Bisacodyl 10 mg 08/03/19 18:51 Dulcolax RECTAL DAILY PRN CONSTIPATION Calcium/Vitamin D 1 tablet 08/04/19 07:45 08/05/19 11:55 Os-Raymond 500mg + D PO 1 tablet TIDCM YARY Administration Carvedilol 3.125 mg 08/03/19 22:00 08/05/19 05:07 Coreg PO 3.125 mg BID YARY Administration Cholecalciferol 2,000 unit 08/04/19 06:00 08/05/19 05:07 Vitamin D PO 2,000 unit DAILY YARY Administration Cyanocobalamin 1,000 mcg 08/04/19 06:00 08/05/19 05:07 Vitamin B12 PO 1,000 mcg DAILY YAYR Administration Cyclobenzaprine HCl 5 mg 08/03/19 22:00 08/05/19 05:07 Cyclobenzaprine Hcl PO 5 mg BID YARY Administration Duloxetine HCl 20 mg 08/04/19 06:00 08/05/19 05:07 Cymbalta PO 20 mg DAILY YARY Administration Furosemide 20 mg 08/04/19 06:00 08/05/19 05:07 Lasix PO 20 mg DAILY YARY Administration Levothyroxine Sodium 50 mcg 08/04/19 06:00 08/05/19 05:07 Synthroid PO 50 mcg DAILY@0600 YARY Administration Memantine 10 mg 08/03/19 22:00 08/05/19 05:07 Namenda PO 10 mg BID YARY Administration Nutritional Formula (Lactose Free) 120 ml 08/03/19 22:00 08/05/19 11:54 Ensure Enlive PO 120 ml 4X/DAY YARY Administration Polyethylene Glycol 17 gm 08/04/19 06:00 08/05/19 05:07 Miralax PO 17 gm DAILY YARY Administration Senna/Docusate Sodium 1 tablet 08/04/19 06:00 08/05/19 05:07 Senokot-S, Lorin-Colace PO 1 tablet BID YARY Administration Tuberculin PPD 5 tu 08/11/19 10:00 Tubersol, Aplisol, Ppd ID 08/11/19 10:01 X1 ONE Problem List (Last Reviewed 02/18/19 @ 11:44 by Gary Bullard MD) Debility (Acute) Acute on chronic systolic heart failure (Acute) Hypotension (Acute) Urinary retention (Chronic) Stroke (Chronic) Atrial fibrillation (Chronic) Vascular dementia (Chronic) Expressive aphasia (Chronic) Allergic rhinitis (Chronic) Hypothyroidism (Chronic) Muscle spasm (Chronic) Hypertension (Chronic) Vital Signs Temp Pulse Resp BP Pulse Ox 98.8 F 61 20 H 124/55 H 94 08/04/19 15:07 08/04/19 18:37 08/04/19 15:07 08/04/19 15:07 08/04/19 15:07 Oxygen Flow Rate (L/min) 2 Oxygen Delivery Method Room Air Weight: 59.8 kg Body Mass Index (BMI) 24.9 Sodium 143 mmol/L (136-145) 08/04/19 05:10 Potassium 4.7 mmol/L (3.5-5.1) 08/04/19 05:10 Chloride 106 mmol/L (98-107) 08/04/19 05:10 Carbon Dioxide 29.0 mmol/L (21.0-32.0) 08/04/19 05:10 Anion Gap 8 (5-15) 08/04/19 05:10 BUN 24 mg/dL (7-18) H 08/04/19 05:10 Creatinine 1.36 mg/dL (0.55-1.02) H 08/04/19 05:10 Est GFR (MDRD) Af Amer 48 mL/min (>60) L 08/04/19 05:10 Est GFR (MDRD) Non-Af 40 mL/min (>60) L 08/04/19 05:10 BUN/Creatinine Ratio 17.6 RATIO (10-20) 08/04/19 05:10 Glucose 100 mg/dL (74-106) 08/04/19 05:10 Assessment/Plan: Psychotropic Medications: Unnecessary Medications: Bowel Regimen: - Provider Comments Provider responsibility: Provider responsible to enter orders to implement recommendations Provider Comments to Recommendations by Pharmacy: Agree
--- NOTE | 2019-08-05 11:25 | CASEMGMT ---
Social Work TCU Reason for intervention: Follow up to initial social work assessment when patient disclosed history of thoughts of suicide. Time of intervention: [id number] Informants: Handoff report from CYNTHIA Sparks for TCU; patient herself; collaborating information from patient's Dr. Dragan Ramirez [place]-Suicide Severity Rating Scale (C-SSRS) Lifetime Recent Version SUICIDAL IDEATION 1. Wish to be Subject endorses thoughts about a wish to be or not alive anymore or wish to fall asleep and not wake up. Lifetime: Time He/She [place] Most Suicidal: YES Past 1 month: YES Please Describe if yes: PATIENT'S HAND EYE COORDINATION DIMINISHES AND PATIENT HAS MORE PHYSICAL LIMITATIONS WITH AGING, THE PATIENT REPORTS TO WONDER WHAT SHE HAS TO LOOK FORWARD TO IN LIFE. PATIENT'S KIDS ARE GROWN AND SUCCESSFUL. PATIENT WORRIES ABOUT BEING A BURDEN TO HER AND CHILDREN. 2. Non-Specific Active Suicidal Thoughts Have you actually had any thoughts of killing yourself? Lifetime: Time He/She [place] Most Suicidal: YES Past 1 month: YES Please Describe if yes: PATIENT HAS HAD THOUGHTS OF KILLING HERSELF, ENDORSES THOUGHTS ON AND OFF SINCE HER CHILDREN WERE LITTLE. HAS HAD THOUGHTS OF DYING IN THE LAST MONTH. DENIES CURRENT THOUGHTS ABOUT KILLING SELF. 3. Active Suicidal Ideation with Any Methods (Not Plan) without Intent to Act Have you been thinking about how you might do this? Lifetime: Time He/She [place] Most Suicidal: YES Past 1 month: YES Please Describe if yes: PATIENT ENDORSES YEARS AGO THAT SHE THOUGHT OF SLICING HER WRISTS (PRIOR TO 2011), BUT MOSTLY THROUGH THE YEARS HAS THOUGHT OF TAKING PILLS. IN THE LAST MONTH PATIENT HAD THOUGHTS OF OVERDOSING ON PILLS. REPORTS HAS STORED AWAY ONE PRESCRIPTION OF PILLS, INTO 3 BOTTLES SO THAT OTHERS WOULD NOT FIND AND TAKE AWAY PATIENT'S MEANS. PATIENT REPORTS UNCERTAINTY TO IF THE AMOUNT SHE HAS WILL SUCCEED. CANNOT REMEMBER THE NAME OF THE PILL, THE PRESCRIPTION WAS HER NOW [id number]. 4. Active Suicidal Ideation with Some Intent to Act, without Specific Plan Have you had these thoughts and had some intention of acting on them? Lifetime: Time He/She [place] Most Suicidal: YES Past 1 month: YES Please Describe if yes: ENDORSES THOUGHTS IN THE LAST MONTH OF OVERDOSING ON PILLS, AND REPORTS WOULD FOLLOW THROUGH IF FELT THAT HAD NOTHING TO LIVE FOR OR FELT TO BE A BURDEN TO HER OR CHILDREN. 5. Active Suicidal Ideation with Specific Plan and Intent Have you started to work out or worked out the details of how to kill yourself? Do you intend to carry out this plan? Lifetime: Time He/She [place] Most Suicidal: YES Past 1 month: YES Please Describe if yes: HAS HAD THE PILLS SINCE HER FATHER IN LAW IN 2011. REPORTS WOULD CARRY OUT THE PLAN WHEN FEELS TO HAVE LITTLE TO CONTRIBUTE OR TO LOOK FORWARD TO IN LIFE. REPORTS HASN'T REALLY THOUGHT OF SPECIFICS BUT WHEN ASKED REPORTED THAT BEDTIME SEEMED LIKE A GOOD TIME OF DAY. DENIES SPECIFIC INTENT TO ACT ON THE PLAN AT THIS TIME, BUT MORE OF GENERAL INTENT TO WHEN PATIENT FEELS STRONGLY ENOUGH THAT HER LIFE HAS LITTLE MEANING. INTENSITY OF IDEATION The following features should be rated with respect to the most severe type of ideation (i.e., 1-5 from above, with 1 being the least severe and 5 being the most severe). Ask about time he/she was feeling the most suicidal. Lifetime - Most Severe Ideation: 5 - BRIEFLY YEARS AGO THOUGHT OF SLICING WRISTS; SINCE 2011 THOUGHTS OF OVERDOSING ON PILLS. Recent - Most Severe Ideation: 5 - OVERDOSING ON PILLS THAT PATIENT HAS STORED IN HER HOME SOMEWHERE. THOUGHTS HAVE BEEN MORE PRESENT IN RECENT MONTHS PATIENT HAS SEEN A DECREASE IN PHYSICAL ABILITIES ASSOCIATED WITH AGING. Frequency How many times have you had these thoughts? Lifetime: LESS THAN ONCE A WEEK (1) (REPORTS THOUGHTS STARTED WHEN HER CHILDREN WERE LITTLE). Recent, in last month: ONCE A WEEK (2) (REFLECTING ON PURPOSE ON LIFE) Duration When you have the thoughts how long do they last? Lifetime: 1-4 HOURS/A LOT OF THE TIME (3) DEPENDS ON WHAT IS GOING ON, SUCH HAVING TWO EPISODES OF TREATMENT FOR DEPRESSION IN THE PAST. Recent: FLEETING, FEW SECONDS OR MINUTES (1) WHEN REFLECTING ON THE SELF PERCEIVED VALUE OF HER LIFE. Controllability Could/can you stop thinking about killing yourself or wanting to if you want to? Lifetime: EASILY ABLE TO CONTROL THOUGHTS (1) Recent: EASILY ABLE TO CONTROL THOUGHTS (1) Deterrents Are there things - anyone or anything (e.g., family, sikh, pain of ) - that stopped you from wanting to or acting on thoughts of committing suicide? Lifetime: DETERRENTS DEFINITELY STOPPED YOU FROM ATTEMPTING SUICIDE (1) - CHILDREN WERE LITTLE AND NEEDED THE PATIENT Recent: DETERRENTS MOST LIKELY DID NOT STOP YOU (4) - REPORTS HAS LIVED A GOOD LIFE, HER CHILDREN ARE SUCCESSFUL AND NO LONGER NEED PATIENT THEY USED TO. PATIENT?S BELIEFS THAT SHE HAS VALUE AND HAS THINGS TO LOOK FORWARD TO HAVE BEEN A DETERRENT THUS FAR. REPORTS THAT SOMETIMES SHE IS MORE AFRAID TO LIVE THAN TO (SO THERE IS SOME LEVEL OF FEAR WITH DYING A DETERRENT). PATIENT ENJOYS GOING TO [employer], TO THE [employer], TO LECTURES, SEWING AND READING. PATIENT HAS STILL BEEN ABLE TO DO SOME OF THESE THINGS BUT ON A MORE LIMITED CAPACITY, WHICH HAS BEEN A DETERRENT IN THAT SHE STILL HAS NOT LOST ALL CAPACITY. SEWING HAS DIMINISHED AND PATIENT IDENTIFIED THIS HARD TO COPE WITH. Reasons for Ideation What sort of reasons did you have for thinking about wanting to or killing yourself? Was it to end the pain or stop the way you were feeling (in other words you couldn?t go on living with this pain or how you were feeling) or was it to get attention, revenge or a reaction from others? Or both? Lifetime: MOSTLY TO END OR STOP THE PAIN (YOU COULDN'T GO ON LIVING WITH THE PAIN OR HOW YOU WERE FEELING) (4) Recent: MOSTLY TO END OR STOP THE PAIN (YOU COULDN'T GO ON LIVING WITH THE PAIN OR HOW YOU WERE FEELING) (4) SUICIDAL BEHAVIOR Lifetime: NO Past 3 months: NO Actual Attempt: 0 Have you made a suicide attempt? NO Have you done anything to harm yourself? NO Have you done anything dangerous where you could have ? NO Did you do it purely for other reasons / without ANY intention of killing yourself (like to relieve stress, feel better, get sympathy, or get something else to happen)? (Self-Injurious Behavior without suicidal intent) NO If yes, describe: N/A Has subject engaged in Non-Suicidal Self-Injurious Behavior? YES - TOOK ONE PILL, ON AT LEAST 2 OCCASIONS SINCE 2011, TO ASSURE THAT THE PILLS STILL HAD EFFICACY, WITH THE INTENT TO ENSURE THAT HER PLAN WOULD HAVE THE POTENTIAL TO WORK WHEN READY. WHEN TOOK THE PILL, PATIENT CLEARLY STATES THAT DID NOT INGEST TO , BUT TO TEST TO SEE IF THERE WAS ANY EFFICACY LEFT IN THE PILL. PATIENT STATES THAT IS UNSURE IF HER COLLECTION OF PILLS WILL EVEN WORK. Interrupted Attempt: Has there been a time when you started to do something to end your life but someone or something stopped you before you did anything? Lifetime: NO Past 3 months: NO Total # of interrupted attempts: 0 for both Aborted or Self-Interrupted Attempt: Has there been a time when you started to do something to try to end your life, but you stopped yourself before you did anything? Lifetime: NO Past 3 months: NO If yes, describe: n/a Number self-interrupted attempts: 0 Preparatory Acts or Behavior: Have you taken any steps towards making a suicide attempt or preparing to kill yourself (such as collecting pills, getting a gun, giving valuables away or writing a suicide note)? If yes, describe: PATIENT HAS SAVED ONE PRESCRIPTION OF STRONG PILLS THAT WERE HER FATHER-IN -LAW'S, WHO IN 2011. PATIENT REPORTED HAS THE PILLS INTO 3 BOTTLES AND HID IN HER HOME. PATIENT DENIES EVER ADDING TO THE COLLECTION THROUGHOUT THE YEARS. ON AT LEAST 2 OCCASIONS PATIENT HAS INGESTED ONE TABLET TO SEE IF THERE WAS STILL SOME EFFICACY TO THE PRESCRIPTION. HAS THOUGHTS OF WRITING HER OBITUARY BUT HAS NOT STARTED YET. Lifetime: Total # of preparatory acts: 3 since 2011 (collecting the pills and then on at least 2 occasions testing the pills) In the last 3 months Total # of preparatory acts: 1 (tested out the efficacy, took one tablet) Actual Lethality/Medical Damage/Potential for Lethality- not applicable as no actual past attempt. ? 2008 [facility] [employer] [employer] Recent - Clinical (Version 11/15/08) Per conversation with Patient: Completed the PHQ9, with a score of 6 indicating mild depression. Patient is reporting a long history of suicidal thoughts, since her children have been little. No intent or plans during that time of her life. Since 2011 patient has had a collection of pills to use when patient feels the time is right. This is the first preparatory act for the patient. Patient has not yet come to decide that the time is now to attempt to kill self, but reports that if she feels her life has not value, or that she becomes too much of a burden then she would have intent to kill herself. Patient reports to love her of 61 years, wants to be able to participate in life and to have a purpose. Patient still has some things she does with her , that they enjoy together but patient reports this is diminishing and is frustrating for her. Reports her ba years are not so ba afterall. Patient denies that she has told her of her academic advisement director actions, but that he does know a little of how she has felt regarding purpose and value in life. Patient resistive to disclosing where her collection of pills are hidden and made comment that if tells then this movie writer will feel a duty to have the pills recovered. Informed patient that there is a safety concern present and that it would be helpful to bring in for conversation. Patient did not disagree; proceeded to bring into conversation. Per conversation with : Informed of purpose of this movie writer?s visit. Asked patient if patient would like to start and talk to about what has been discussed. Patient deferred to this movie writer. Informed that patient has had some thoughts of suicide, and has apparently hidden some pills in the home. The smiled and reports it would be a ?needle in a haystack to find them.? reports has been aware of patient having thoughts of wanting to in the past. reports to feel that patient is not currently in a clinical depression. The reports physical pain, and the limitations associated with pain seem to be the hardest for patient. reports that last October patient?s back pain became worse was diagnosed with spinal stenosis. Patient has has been working with Dr. Mcintyre for pain management including epidurals. The only thing that was coming close to touch patient?s pain was tramadol. reports a few weeks ago patient had a nerve block and since that time has had some relief, going to [facility] 2-3 times a week for outpatient PT and OT and then doing exercises at home. reports that things were looking hopeful and positive for patient?s mobility and comfort. reports patient has had 2 clinical depressions, one in 1960 and another in 2005. Both treated as an outpatient by a psychiatrist. Patient was prescribed medication both times, for about 6 months or so and then titrated off. No counseling history and no hospitalizations reported. No suicide attempts reported. reports patient is currently on Cymbalta for hot flashes and to offset side effects of Tramadol. Per the patient was treated with Cymbalta in 2005. At this time states to believe that patient is not in a clinical depression, such as she was in 1960 or 2005. reports belief that if patient was going got fall into a clinical depression then this would have happened when the pain issues surfaced for patient, and that recently this patient has been doing better since the nerve block by Dr. Mcintyre. No voiced intent or interest by the to go and look for patient?s collection of pills, even after this movie writer expressed concern for patient making these preparatory acts, reporting that patient?s bathroom has many things and indicating that would not know were to start. Note, the stated that for the patient to be discharged home to care of the the patient needs to be able to get from the bathroom to the bedroom fairly independently, and the needs to feel that can ?safely? care for patient at home. is also aging and likely has limitations as to how much physical capacity he has in hands on care for patient. Observations: Patient cooperative during social work visit and questions about depression and suicidality. Patient held fair to normal eye contact, matter of fact in disclosing thoughts, and reflective about life and future. Patient?s affect constricted, did smile at appropriate times. Speech within normal limits. Patient alert and oriented to person, place, month, date, age, surgeon/president, and general reasoning for admission. Patient listened quietly while shared his perspective, but did once in a while give input. Assessment: At time of assessment, no current thoughts to kill herself. Patient is high risk for the future due to preparatory actions (collection and testing for efficacy), age, and life circumstances but currently patient has no active and nor any specifics thought regarding when or at what point the patient's life is not meaningful enough. Per the PHQ9 has had thoughts several days over the last couple of weeks, but again no specific planning outside of identifying the means with the thoughts reported as being easily controlled. Patient does not have access to her identified means currently. Both patient and have been counseled as to reducing risk, removing access to identified method. encouraged to find identified means. Other risk reducing efforts in place include the patient's as currently setting up all of patient?s other usual medications; There are guns in the home, which are locked and patient does not have access to nor has patient ever used a gun. Protective factors include: that patient has interest in being in TCU and working towards better mobility and endurance, was working with pain management and outpatient therapies seeing improvement (so some level hope for the future), and though patient's identified activities of enjoyment have been reduced at home the patient has still been able to participate in some of these activities with her 's support. Patient has indicated that she is sometimes more afraid to live than to , so can infer that in this statement while there is some fear of living there is also some fear of dying. As patient does not have current and active thoughts/plan/intent for suicide, criteria for inpatient not met. Do suggest addition of mental health treatment and follow up in the community. Discussed with patient and recommendations for referral to counseling (patient is already on Cymbalta). Would be of benefit for further discussion as to what patient is willing to do regarding her mental health in another meeting with social work supervisor. Interventions: Completed the PHQ9 (see attached link) and [place] Suicide Severity Rating scale. Addressed with the the collection of pills in the home and that would be good to recover. Addressed a referral to counseling first with the patient privately and then with the . asked for what purpose a referral to counseling would be needed, to which this movie writer reviewed. stated that if this is what patient wants then would see that patient got to counseling. Patient reports that ?would have to be the right person? and while alone the patient made comment that counselors say ?stupid things.? Introduced to idea of palliative medicine (not hospice) to help with pain management and symptoms control should patient or feel there would be a need, or benefit, to add additional support in the community; aide to already established team of providers. Supportive listening , reflection, encouragement offered to patient this date. Attempted to look at what patient still finds enjoyable in life as a reminder of purpose and meaning. Plan: Social work to follow. Plan to provide list of counseling options, discussed IOP level of care versus outpatient counseling. Reinforce risk reduction in the home. -AMPARO Zapien, WELDER/FITTER
[2019-08-05 15:48] VITALS: BP 118/60; PULSE 63; RESP 20; TEMP 37.3; O2SAT 95
[2019-08-05] MEDS: Acetaminophen 500 MG Tablet 1000 MG PO (21:18)
[2019-08-06 05:20] VITALS: BP 122/51; PULSE 57
[2019-08-06] MEDS: Polyethylene Glycol 3350 17 GM PACKET PO (05:23)
[2019-08-06] MEDS: APIXABAN 2.5 MG TABLET PO ×2 (05:25→18:02)
[2019-08-06] MEDS: Cyanocobalamin 500 MCG Tablet 1000 MCG PO (05:25)
[2019-08-06] MEDS: Senna/Docusate Sodium 1 Tablet PO (05:25)
[2019-08-06] MEDS: DULoxetine Hcl 20 MG Capsule PO (05:26)
[2019-08-06] MEDS: Carvedilol 3.125 MG TABLET PO ×2 (05:26→18:02)
[2019-08-06] MEDS: Levothyroxine 50 MCG Tablet PO (05:26)
[2019-08-06] MEDS: Amiodarone 200 MG Tablet PO (05:26)
[2019-08-06] MEDS: Memantine Hydrochloride 10 MG Tablet PO ×2 (05:27→18:02)
[2019-08-06] MEDS: cycloBENZAPRine HCl 5 MG TABLET PO ×2 (05:27→18:02)
[2019-08-06] MEDS: Furosemide 20 MG Tablet PO (05:27)
[2019-08-06] MEDS: Calcium Carb/Vitamin D 1 TABLET Tablet PO ×3 (08:00→18:02)
[2019-08-06] MEDS: Sodium Chloride 0.65% 1 SPRAY SPRAY.BTL NASAL ×3 (15:07→22:03)
[2019-08-06 16:00] VITALS: BP 112/55; PULSE 60; RESP 20; TEMP 37.2; O2SAT 92
[2019-08-06] MEDS: Acetaminophen 500 MG Tablet 1000 MG PO (21:08)
[2019-08-07 06:40] VITALS: BP 116/62; PULSE 58
[2019-08-07] MEDS: Amiodarone 200 MG Tablet PO (06:43)
[2019-08-07] MEDS: DULoxetine Hcl 20 MG Capsule PO (06:43)
[2019-08-07] MEDS: cycloBENZAPRine HCl 5 MG TABLET PO ×2 (06:43→17:29)
[2019-08-07] MEDS: Polyethylene Glycol 3350 17 GM PACKET PO (06:43)
[2019-08-07] MEDS: APIXABAN 2.5 MG TABLET PO ×2 (06:43→17:29)
[2019-08-07] MEDS: Cyanocobalamin 500 MCG Tablet 1000 MCG PO (06:44)
[2019-08-07] MEDS: Carvedilol 3.125 MG TABLET PO ×2 (06:44→17:29)
[2019-08-07] MEDS: Memantine Hydrochloride 10 MG Tablet PO ×2 (06:44→17:29)
[2019-08-07] MEDS: Senna/Docusate Sodium 1 Tablet PO ×2 (06:44→17:29)
[2019-08-07] MEDS: Levothyroxine 50 MCG Tablet PO (06:45)
[2019-08-07] MEDS: Furosemide 20 MG Tablet PO (06:45)
[2019-08-07] MEDS: Sodium Chloride 0.65% 1 SPRAY SPRAY.BTL NASAL ×3 (06:51→20:46)
[2019-08-07] MEDS: Acetaminophen 500 MG Tablet 1000 MG PO ×2 (08:34→22:43)
[2019-08-07] MEDS: Calcium Carb/Vitamin D 1 TABLET Tablet PO ×3 (08:34→17:29)
[2019-08-07 15:34] VITALS: BP 113/56; PULSE 58; RESP 20; TEMP 36.5; O2SAT 92
[2019-08-08] MEDS: Carvedilol 3.125 MG TABLET PO ×2 (05:21→17:46)
[2019-08-08] MEDS: Amiodarone 200 MG Tablet PO (05:21)
[2019-08-08] MEDS: cycloBENZAPRine HCl 5 MG TABLET PO ×2 (05:21→17:46)
[2019-08-08] MEDS: Polyethylene Glycol 3350 17 GM PACKET PO (05:22)
[2019-08-08] MEDS: Senna/Docusate Sodium 1 Tablet PO ×2 (05:22→17:46)
[2019-08-08] MEDS: Memantine Hydrochloride 10 MG Tablet PO ×2 (05:22→17:46)
[2019-08-08] MEDS: Furosemide 20 MG Tablet PO (05:22)
[2019-08-08] MEDS: APIXABAN 2.5 MG TABLET PO ×2 (05:22→17:46)
[2019-08-08] MEDS: DULoxetine Hcl 20 MG Capsule PO (05:22)
[2019-08-08] MEDS: Levothyroxine 50 MCG Tablet PO (05:22)
[2019-08-08] MEDS: Cyanocobalamin 500 MCG Tablet 1000 MCG PO (05:22)
[2019-08-08] MEDS: Sodium Chloride 0.65% 1 SPRAY SPRAY.BTL NASAL (05:28)
[2019-08-08] MEDS: Calcium Carb/Vitamin D 1 TABLET Tablet PO ×3 (08:20→17:45)
--- NOTE | 2019-08-08 14:04 | CASEMGMT ---
Social Work TCU Note, order in place for an in person mental health assessment based on PHQ9 entry this date. This chief underwriter met with patient and with on 08.05.2019, at which time the PHQ9 and [place] Suicide Severity Rating Scale was completed by this chief underwriter. In person assessment completed. Refer to previous social work documentation dated 08.05.2019 for details of this in person assessment. No current risk for suicide identified on the TCU. Handoff report for continuity of care and collaborative efforts provided on 08.05.2019 to Felecia MARIE. Plan: Social work will continue to follow during TCU stay, with plan to readdress at a later time with patient, and as appropriate with , the next steps for mental health referrals when patient is ready for discharge from TCU. -AMPARO Zapien, PRODUCTION WOOD CRAFTSMAN
[2019-08-08 15:08] VITALS: BP 121/43; PULSE 58; RESP 18; TEMP 37; O2SAT 95
--- NOTE | 2019-08-08 16:41 | CHAPLAIN ---
Type of Pastoral Visit _x__ Initial Visit ___ Follow-up Visit ___ On-call Visit ___ General Patient Visit ___ Spiritual Assessment ___ Family Conference ___ Bereavement ___ Rapid Response ___ Code Blue ___ Other (describe below) Pastoral Care Referral From _x__ Patient ___ Family ___ Nurse ___ Physician ___ Mission Assessment Specialist ___ Engraver Letter ___ Other (describe below) Sacrament/Intervention _x__ Active listening ___ Anointing ___ Christianity ___ Bereavement ___ Communion ___ Marisol exploration ___ ___ Life review ___ Prayer ___ Reconciliation ___ Sacrament of Sick _x__ Supportive presence ___ Wedding ___ Other (describe below) Pastoral Comments met spouse of patient as well
[2019-08-08] MEDS: Acetaminophen 500 MG Tablet 1000 MG PO (20:38)
--- NOTE | 2019-08-08 21:14 | NURSING ---
Pt c/o rectal pain. Per spouse pain is chronic, pt take tramadol 75 mg at home with acetaminophen in it and sees a rectal specialist. Dr Cortes aware, N.O. tramadol
[2019-08-08] MEDS: traMADol 50 MG Tablet PO (22:11)
[2019-08-09] MEDS: Amiodarone 200 MG Tablet PO (05:14)
[2019-08-09] MEDS: cycloBENZAPRine HCl 5 MG TABLET PO ×2 (05:14→17:43)
[2019-08-09] MEDS: Levothyroxine 50 MCG Tablet PO (05:14)
[2019-08-09] MEDS: Furosemide 20 MG Tablet PO (05:14)
[2019-08-09] MEDS: Memantine Hydrochloride 10 MG Tablet PO ×2 (05:14→17:43)
[2019-08-09] MEDS: Senna/Docusate Sodium 1 Tablet PO ×2 (05:14→17:44)
[2019-08-09] MEDS: Polyethylene Glycol 3350 17 GM PACKET PO (05:14)
[2019-08-09] MEDS: DULoxetine Hcl 20 MG Capsule PO (05:14)
[2019-08-09] MEDS: Carvedilol 3.125 MG TABLET PO ×2 (05:14→17:43)
[2019-08-09] MEDS: APIXABAN 2.5 MG TABLET PO ×2 (05:15→17:43)
[2019-08-09] MEDS: Cyanocobalamin 500 MCG Tablet 1000 MCG PO (05:15)
[2019-08-09] MEDS: Sodium Chloride 0.65% 1 SPRAY SPRAY.BTL NASAL ×2 (08:27→20:32)
[2019-08-09] MEDS: Calcium Carb/Vitamin D 1 TABLET Tablet PO ×3 (08:27→17:43)
[2019-08-09] MEDS: Acetaminophen 500 MG Tablet 1000 MG PO ×2 (08:33→20:31)
[2019-08-09 16:00] VITALS: BP 121/43; PULSE 58; RESP 20; TEMP 37.1; O2SAT 94
[2019-08-09] MEDS: traMADol 50 MG Tablet PO (22:18)
[2019-08-10] MEDS: Levothyroxine 50 MCG Tablet PO (05:18)
[2019-08-10] MEDS: Cyanocobalamin 500 MCG Tablet 1000 MCG PO (05:18)
[2019-08-10] MEDS: DULoxetine Hcl 20 MG Capsule PO (05:19)
[2019-08-10] MEDS: cycloBENZAPRine HCl 5 MG TABLET PO ×2 (05:19→16:48)
[2019-08-10] MEDS: Carvedilol 3.125 MG TABLET PO ×2 (05:19→16:47)
[2019-08-10] MEDS: Furosemide 20 MG Tablet PO (05:19)
[2019-08-10] MEDS: Amiodarone 200 MG Tablet PO (05:19)
[2019-08-10] MEDS: Memantine Hydrochloride 10 MG Tablet PO ×2 (05:19→16:47)
[2019-08-10] MEDS: APIXABAN 2.5 MG TABLET PO ×2 (05:19→16:48)
[2019-08-10] MEDS: Sodium Chloride 0.65% 1 SPRAY SPRAY.BTL NASAL ×2 (08:52→22:13)
[2019-08-10] MEDS: Calcium Carb/Vitamin D 1 TABLET Tablet PO ×3 (08:53→16:46)
--- NOTE | 2019-08-10 09:54 | CASEMGMT ---
Addendum entered by Nayeli Reveles 08/10/19 17:06: Pt would like [facility] [place]. Referral made. Original Note: Social Work IDT met with patient and for care plan meeting. Discussed patient's progress in therapy. Pt is SBA for all ADLs and transfers. SBA walking 150ft with FWW, 3 steps CGA. stated pt must be able to transfer in and out of bath tub independently. Pt will continue to work with therapy, but pt and feel will be ready to DC home 08/13. Pt will decide on outpatient therapy or home exercises. No DME needs. Plan: DC home with 08/13. CYNTHIA SparksW
[2019-08-10 16:00] VITALS: BP 108/40; PULSE 59; RESP 18; TEMP 36.4; O2SAT 92
--- NOTE | 2019-08-10 16:00 | CASEMGMT ---
Social Work TCU (late entry for 08.10.2019) Date of Intervention: 08.10.2019 Time of Intervention: approximately [id number] Reason for intervention: Follow up to mental health and suicide risk assessment completed on 08.05.2019. Informants: patient Alysha Becker and Dr. Dragan Becker Summary: Handoff received from Felecia MARIE on TCU of planned discharge this weekend. Followed up with patient and regarding mental health follow up and safety at home. Patient reports to be feeling better today, admits that two days ago was not feeling well and was frustrated. Patient indicated that had she gone home two days ago feeling such discomfort that may have considered suicide. Patient reports today is another matter, to be feeling better and more hopeful. indicates the staff has worked to manage and address patient's comfort levels. Risk Reduction: Addressed with patient and recommendation to remove the items in the home that patient could use as a means to harm or kill herself. reports to manage all of patient?s pills, to have these put away. There are guns in the home, but patient has no awareness of where these are at, no access to the guns. This public relations writer also strongly recommended that find the pills that patient has reportedly hidden, for some unknown timeframe in the future. expresses feeling that if he goes and searches patient things that this is a betrayal of trust to patient, that would be crossing a line, so it is really back on the patient on whether to share where hidden pills may be. Patient strongly encouraged to share where she has pills hidden as well as communicate to should patient start to again consider more any thoughts of suicide in the future. Protective Factors: Patient states to be feeling better at this time and that pain has been managed over the last couple of days. Patient intends to follow up with Dr. Mcintyre for pain management. Patient indicates to be feeling stronger. Showing future orientation as patient is open to continuing PT and OT services once discharged, likely back at [facility]. Patient continues to be prescribed Cymbalta an antideprressant. is expressing support to patient and plans continuing to look after patient as well as management medication regiment. Patient talkative about the friends that have come to visit at the hospital and who are supportive to patient. Patient previously indicated to this public relations writer that she is sometimes more afraid to live than to , so can infer that in this statement while there is some fear of living there is also some fear of dying. No prior attempts at suicide. Patient also still enjoys hobbies (though at a more limited capacity) and still enjoys doing things with her . Assessment: Patient and both cooperative, engaged and pleasant with social work visit this date. Patient's contemplation of suicide continues to be dependent on the day and how patient is feeling physically. Patient has been dealing with pain issues for a long time now, unable to say when enough will be enough in that patient would feel she is done with her life situation. While patient has voiced having potential means and has made some planning, there is not an active intent at this time to take action, nor is there any set time identified as to when patient would act on thoughts. The states that he does not feel the patient is actively suicidal; not something perceives as an active threat. states that at the first sign or indication that patient may be moving into active intent, or more severe depression, then would ?drag? patient to a psychiatrist for help. reports to feel comfortable and safe with taking patient home, plans to keep an eye on patient, continue caring for patient has she has been doing for years. reports he and patient will look over resources offered and discussed today, and make some decisions about follow up. Patient noncommittal to accepting any referrals at this time, agrees to consider what social media analyst has discussed. Patient also reports to feel comfortable and safe with plan to discharge home with assist from . expressed much appreciation for social media analyst?s time, research, and care of patient?s overall wellbeing. Interventions/Referral options: Inpatient treatment: patient refuses this options, has never been hospitalized before and has no interest in going to inpatient treatment. Patient is not voicing active intent for suicide at this time and is future oriented continuing physical rehab after discharge. is also not in support of the inpatient option. IOP/PHP: Educated to local intensive outpatient option through [facility]. Did not talk about any other IOP programs as patient and have expressed strong value in staying local for treatment if available. Offered to have someone from the IOP program come to meet patient and , just to have a familiar face in case patient decides to do this or to learn more about the program. Patient not interested in this option at present, and deferred to patient. did express that if patient desires this level of care would make sure patient gets to the program. Outpatient: provided patient and a list of local options. Researched and found a local counselor that seems to have background in geriatric mental health. Printed this bio for patient and to review. At ?s request, listed local psychiatric providers for mediation management. Offered to make referral. Patient and declined social media analyst's offer to get referrals started at this time. Plan for mental health aftercare: Patient will discharge home with when medically ready. to continue to look after patient as before. Patient continues to be prescribed an antidepressant. Referrals have been offered for mental health aftercare. states plan to look over options provided with patient and if decided upon will call on own to get this set up. has stated intent to take patient to psychiatrist should patient start showing signs of a more sever depression or active signs of suicidal ideation and intent. Patient and have been counseled on risk reduction in the home, as well as recommendations for mental health follow up. Left this public relations writer?s name and number should patient or have further questions or need assistance in making actual referrals. Handoff to Feelcia MARIE for TCU for continuity of care and final discharge planning for this patient.. -MICHAEL Zapien, FISHING ROD TRIMMER
[2019-08-10] MEDS: Senna/Docusate Sodium 1 Tablet PO (16:46)
--- NOTE | 2019-08-10 20:43 | PCM.DC ---
- Discharge Diagnoses Current Active Problems: Current Active and Chronic Problems (Last Reviewed 02/18/19 @ 11:44 by Gary Bullard MD) Debility (Acute) Acute on chronic systolic heart failure (Acute) Hypotension (Acute) Urinary retention (Chronic) Stroke (Chronic) Atrial fibrillation (Chronic) Vascular dementia (Chronic) Expressive aphasia (Chronic) Allergic rhinitis (Chronic) Hypothyroidism (Chronic) Muscle spasm (Chronic) Hypertension (Chronic) You will use the following diet at home:: No restrictions, Regular Your food should be the consistency of: Regular Your liquids should be the consistency of: Regular/Thin Discharge Activity: Return to Normal Activity, May Shower, Use Walker Weight Bearing Status: Weight bearing as tolerated Call your doctor if you observe: Fever of 101 or Higher, Inability to urinate, Shortness of breath, Chest pain, Uncontrolled pain Allergies/Adverse Reactions: Allergies Penicillins [PCN] Allergy (Verified 07/27/19 18:16) Rash Medications to take at Discharge Calcium Citrate/Vitamin D3 [Calcium Citrate - Vit D Caplet] 315 ea PO TIDCM 01/05/17 Cholecalciferol (Vitamin D3) [Vitamin D3] 2,000 unit PO DAILY 01/05/17 Amiodarone HCl [Cordarone] 200 mg PO DAILY 10/06/18 Dymista 1 puff NASAL BID PRN PRN 10/06/18 Cyanocobalamin (Vitamin B-12) [B-12] 1,000 mcg PO DAILY 11/02/18 levothyroxine 50 mcg capsule 50 mcg PO DAILY 02/18/19 cyclobenzaprine 5 mg tablet 5 mg PO BID tab 05/30/19 duloxetine 20 mg capsule,delayed release 20 mg PO DAILY cap 05/30/19 memantine 5 mg tablet 10 mg PO BID 05/30/19 Apixaban [Eliquis] 2.5 mg PO BID 08/03/19 Carvedilol [Coreg (Beta Kori)] 3.125 mg PO BID 08/03/19 Furosemide [Lasix] 20 mg PO DAILY 08/03/19 Acetaminophen [Tylenol] 1,000 mg PO Q6H PRN PRN tablet 08/10/19 Sodium Chloride 0.65% [[place] Nasal [place]] 1 spray NASAL TID PRN PRN spray.btl 08/10/19 traMADol [Ultram] 50 mg PO Q6H PRN PRN tablet 08/10/19 Primary Care Physician: Ben Loomis MD [Primary Care Provider] - Please follow up with your Primary Care Physician in: 1 week. Test Results: Test results from this visit will be discussed in further detail at your follow-up appointment, if applicable. Please Follow Up With: Dr. Bullard When: 2 weeks. Please Follow Up With: Dr. Loomis Proposed Discharge Date: 08/13/19
--- NOTE | 2019-08-10 20:44 | PCM.DC.SUM ---
Discharge Date and Diagnosis - Problem List Patient Problems: Active and Suspected Problems (Last Reviewed 02/18/19 @ 11:44 by Gary Bullard MD) Debility (Acute) Acute on chronic systolic heart failure (Acute) Hypotension (Acute) Date of Admission: 08/03/19 Date of Discharge: 08/13/19 - Primary Discharge Diagnosis Active and Suspected Problems (Last Reviewed 02/18/19 @ 11:44 by Gary Bullard MD) Debility (Acute) Acute on chronic systolic heart failure (Acute) Hypotension (Acute) - Secondary Discharge Diagnosis Chronic Problems (Last Reviewed 02/18/19 @ 11:44 by Gary Blulard MD) Urinary retention (Chronic) Stroke (Chronic) Atrial fibrillation (Chronic) Vascular dementia (Chronic) Expressive aphasia (Chronic) Allergic rhinitis (Chronic) Hypothyroidism (Chronic) Muscle spasm (Chronic) Hypertension (Chronic) Essential (primary) hypertension (Chronic) History of breast cancer (Chronic) 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) last ECHO with a 35 % EF Secondary pulmonary arterial hypertension (Chronic) Nonrheumatic aortic valve insufficiency (Chronic) Nonrheumatic mitral (valve) insufficiency (Chronic) Non-rheumatic tricuspid valve insufficiency (Chronic) Paroxysmal atrial fibrillation (Chronic) 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 Discharge home with , outpatient PT. Patient Problems: Active and Suspected Problems (Last Reviewed 02/18/19 @ 11:44 by Gary Bullard MD) Debility (Acute) Acute on chronic systolic heart failure (Acute) Hypotension (Acute) - Physical Exam Vital Signs Temp Pulse Resp BP Pulse Ox 97.6 F L 59 L 18 108/40 L 92 08/10/19 16:00 08/10/19 16:00 08/10/19 16:00 08/10/19 16:00 08/10/19 16:00 Oxygen Flow Rate (L/min) 92 Oxygen Delivery Method Room Air Weight: 59.08 kg Body Mass Index (BMI) 24.9 Intake and Output for Last 24 Hours 08/08/19 08/09/19 08/10/19 23:59 23:59 23:59 Intake Total 660 / 660 600 / 600 360 / 360 Balance 660 / 660 600 / 600 360 / 360 Discharge Diet: No Restrictions Discharge Activity: Return to Normal Activity, May Shower, Use Walker Weight Bearing Status: Weight bearing as tolerated Call your doctor if you observe: Fever of 101 or Higher, Inability to urinate, Shortness of breath, Chest pain, Uncontrolled pain Home Medications: Medications to take at Discharge Calcium Citrate/Vitamin D3 [Calcium Citrate - Vit D Caplet] 315 ea PO TIDCM 01/05/17 Cholecalciferol (Vitamin D3) [Vitamin D3] 2,000 unit PO DAILY 01/05/17 Amiodarone HCl [Cordarone] 200 mg PO DAILY 10/06/18 Dymista 1 puff NASAL BID PRN PRN 10/06/18 Cyanocobalamin (Vitamin B-12) [B-12] 1,000 mcg PO DAILY 11/02/18 levothyroxine 50 mcg capsule 50 mcg PO DAILY 02/18/19 cyclobenzaprine 5 mg tablet 5 mg PO BID tab 05/30/19 duloxetine 20 mg capsule,delayed release 20 mg PO DAILY cap 05/30/19 memantine 5 mg tablet 10 mg PO BID 05/30/19 Apixaban [Eliquis] 2.5 mg PO BID 08/03/19 Carvedilol [Coreg (Beta Kori)] 3.125 mg PO BID 08/03/19 Furosemide [Lasix] 20 mg PO DAILY 08/03/19 Acetaminophen [Tylenol] 1,000 mg PO Q6H PRN PRN tablet 08/10/19 Sodium Chloride 0.65% [[place] Nasal [place]] 1 spray NASAL TID PRN PRN spray.btl 08/10/19 traMADol [Ultram] 50 mg PO Q6H PRN PRN tablet 08/10/19 Primary Care Physician: Ben Loomis MD [Primary Care Provider] - Please follow up with your Primary Care Physician in: 1 week. Please Follow Up With: Dr. Bullard When: 2 weeks. Please Follow Up With: Dr. Loomis Disposition: Home Minutes spent on discharge:: 30 Patient Condition:: Stable Medical Necessity - Tobacco Use Smoking Status: Never smoker Tobacco Use: Non-smoker Meaningful Use Info Meaningful Use Diagnoses (Choose all that apply): None applicable
[2019-08-11 06:04] LABS: Absolute Neutrophil Count 3.9 X10^3/uL (2.0-7.7); Basophil# 0.12 X10^3/uL; Basophil% 1.8 % (0-1); Eosinophil# 0.31 X10^3/uL; Eosinophils% 4.8 % (0-5); Hematocrit 35.9 % (37-47); Hemoglobin 11.3 g/dL (12.0-15.0); Lymphocyte % 19.9 % (19-41); Mean Corp Hgb Conc 31.5 g/dL (32-36); Mean Corpuscular Hgb 31.4 pg (27.0-32.0); Mean Corpuscular Volume 99.7 fL (81-99); Mean Platelet Vol. 10.3 fl (6.2-12.0); Monocyte# 0.84 X10^3/uL; Monocyte% 12.9 % (0-10); NRBC Flagged by Analyzer 0 % (0-5); Neutrophil # 3.91 X10^3/uL (2.7-7.7); Platelet Count 384 K/mm3 (150-450); White Blood Count 6.5 K/mm3 (4.4-11.0)
[2019-08-11 06:34] LABS: Anion Gap 8 (5-15); BUN 26 mg/dL (7-18); BUN/Creat Ratio 15.9 RATIO (10-20); Chloride 107 mmol/L (98-107); Creatinine, Serum 1.64 mg/dL (0.55-1.02); EST Glomerular Filtration Rate 32 mL/min (>60); Est Glom Filt Rate - Afr Amer 39 mL/min (>60); Glucose 92 mg/dL (74-106); Potassium 3.5 mmol/L (3.5-5.1); Sodium Level 145 mmol/L (136-145)
[2019-08-11] MEDS: Carvedilol 3.125 MG TABLET PO ×2 (06:34→16:45)
[2019-08-11] MEDS: DULoxetine Hcl 20 MG Capsule PO (06:34)
[2019-08-11] MEDS: Memantine Hydrochloride 10 MG Tablet PO ×2 (06:35→16:45)
[2019-08-11] MEDS: Levothyroxine 50 MCG Tablet PO (06:35)
[2019-08-11] MEDS: cycloBENZAPRine HCl 5 MG TABLET PO ×2 (06:35→16:46)
[2019-08-11] MEDS: Amiodarone 200 MG Tablet PO (06:35)
[2019-08-11] MEDS: Furosemide 20 MG Tablet PO (06:35)
[2019-08-11] MEDS: APIXABAN 2.5 MG TABLET PO ×2 (06:35→16:46)
[2019-08-11] MEDS: Cyanocobalamin 500 MCG Tablet 1000 MCG PO (06:36)
[2019-08-11 06:41] VITALS: BP 119/47; PULSE 62
[2019-08-11] MEDS: Sodium Chloride 0.65% 1 SPRAY SPRAY.BTL NASAL (06:43)
[2019-08-11] MEDS: Calcium Carb/Vitamin D 1 TABLET Tablet PO ×3 (08:22→16:45)
[2019-08-11] MEDS: Acetaminophen 500 MG Tablet 1000 MG PO ×2 (08:22→16:43)
[2019-08-11] MEDS: Tuberculin,Purif.prot.deriv. 50 TU/ML Vial 5 ML ID (09:14)
[2019-08-11 15:45] VITALS: BP 129/55; PULSE 65; RESP 18; TEMP 36.6; O2SAT 94
[2019-08-11] MEDS: Senna/Docusate Sodium 1 Tablet PO (16:47)
[2019-08-12] MEDS: Acetaminophen 500 MG Tablet 1000 MG PO ×2 (01:38→22:31)
[2019-08-12 04:53] VITALS: BP 119/61; PULSE 69; RESP 17; O2SAT 88
[2019-08-12] MEDS: Cyanocobalamin 500 MCG Tablet 1000 MCG PO (04:58)
[2019-08-12] MEDS: cycloBENZAPRine HCl 5 MG TABLET PO ×2 (04:59→16:40)
[2019-08-12] MEDS: DULoxetine Hcl 20 MG Capsule PO (04:59)
[2019-08-12] MEDS: Memantine Hydrochloride 10 MG Tablet PO ×2 (04:59→16:40)
[2019-08-12] MEDS: Furosemide 20 MG Tablet PO (04:59)
[2019-08-12] MEDS: APIXABAN 2.5 MG TABLET PO ×2 (04:59→16:40)
[2019-08-12] MEDS: Levothyroxine 50 MCG Tablet PO (04:59)
[2019-08-12] MEDS: Amiodarone 200 MG Tablet PO (04:59)
[2019-08-12] MEDS: Carvedilol 3.125 MG TABLET PO ×2 (04:59→16:39)
[2019-08-12] MEDS: Calcium Carb/Vitamin D 1 TABLET Tablet PO ×3 (07:46→16:40)
[2019-08-12] MEDS: Sodium Chloride 0.65% 1 SPRAY SPRAY.BTL NASAL ×3 (09:06→22:31)
[2019-08-12 15:54] VITALS: BP 119/48; PULSE 63; RESP 16; TEMP 36.7; O2SAT 97
[2019-08-12] MEDS: Senna/Docusate Sodium 1 Tablet PO (16:40)
[2019-08-13] MEDS: Furosemide 20 MG Tablet PO (04:55)
[2019-08-13] MEDS: Memantine Hydrochloride 10 MG Tablet PO (04:55)
[2019-08-13] MEDS: APIXABAN 2.5 MG TABLET PO (04:55)
[2019-08-13] MEDS: Senna/Docusate Sodium 1 Tablet PO (04:57)
[2019-08-13] MEDS: Carvedilol 3.125 MG TABLET PO (04:58)
[2019-08-13] MEDS: DULoxetine Hcl 20 MG Capsule PO (04:58)
[2019-08-13] MEDS: Levothyroxine 50 MCG Tablet PO (04:58)
[2019-08-13] MEDS: cycloBENZAPRine HCl 5 MG TABLET PO (04:59)
[2019-08-13] MEDS: Amiodarone 200 MG Tablet PO (04:59)
[2019-08-13] MEDS: Cyanocobalamin 500 MCG Tablet 1000 MCG PO (05:00)
[2019-08-13 05:01] VITALS: BP 111/47; PULSE 78; RESP 15; TEMP 36.9; O2SAT 95
[2019-08-13] MEDS: Calcium Carb/Vitamin D 1 TABLET Tablet PO (08:08)
[2019-08-13] MEDS: Sodium Chloride 0.65% 1 SPRAY SPRAY.BTL NASAL (08:08)
[2019-08-13 11:01] VITALS: BP 110/61; PULSE 62; RESP 18; TEMP 36.8; O2SAT 95
--- NOTE | 2019-08-15 12:08 | MDS.RN ---
MDS IPA/DC assessment completed, waiting to finalize assessments per [facility] Information Systems instructions. Information for the mds was obtained from review of the clinical record, interview of resident, staff, and direct observation of resident's care.
== END 2019-08-13 11:03 | disposition home or self-care (01) | DRG 293 ==
PROVIDERS: Admitting Provider Family Medicine Geriatric Medicine; Family Provider Internal Medicine; PCP Internal Medicine; Referring Provider Family Medicine Geriatric Medicine; Visit Provider Family Medicine Geriatric Medicine
DX: I11.0 Hypertensive heart disease with heart failure (principal); I50.22 Chronic systolic (congestive) heart failure; E03.9 Hypothyroidism, unspecified; I48.0 Paroxysmal atrial fibrillation; I27.21 Secondary pulmonary arterial hypertension; F41.9 Anxiety disorder, unspecified; F32.9 Major depressive disorder, single episode, unspecified; F01.50 Vascular dementia, unspecified severity, without behavioral disturbance, psychotic disturbance, mood disturbance, and anxiety; I95.9 Hypotension, unspecified
CPT/HCPCS: 36415; 80048; 85025; 92507; 92523; 92526; 92610; 97110; 97116; 97162; 97166; 97530; 97535; 97802

== ENCOUNTER 2019-08-19 11:48 | Inpatient (IN) | payer MEDICARE, OTHER, SELFPAY ==
[2019-08-19 11:49] VITALS: BP 152/65; PULSE 63; RESP 16; TEMP 36.3; O2SAT 95; BMI 24.5
--- NOTE | 2019-08-19 12:04 | CT_ITS ---
STUDY: CT ABDOMEN AND PELVIS WITH CONTRAST REASON FOR EXAM: Female, 83 years old. Left lower quadrant pain. The patient has a history of right breast carcinoma with mastectomy and radiation treatment. RADIATION DOSAGE (If Supplied By Facility): CTDIvol = ( 17.99 ) mGy, DLP = ( 662.36 ) mGycm TECHNIQUE: Transaxial images were obtained from the dome of the diaphragm to the symphysis pubis with oral contrast. IV Isovue 300 100CC was administered. Sagittal and coronal images were reconstructed. Individualized dose optimization techniques were used for this CT. COMPARISON: Comparison is made with prior examination dated August 13, 2018. FINDINGS: Prior right mastectomy. Mild degree of the increased ground glass appearance in both lungs as compared to prior study. This may represent atelectatic changes. The visualized portions of the heart are within normal limits. Normal liver. Normal gallbladder and extrahepatic biliary system. Normal spleen. There is diffuse atrophy of the pancreas. Normal bilateral adrenal glands. Normal right kidney. Mild degree of left-sided hydronephrosis and the proximal left hydroureter due to a 7.7 mm calculus in the proximal/midportion of the left ureter. Normal visualized stomach. Normal small intestine. There are multiple colonic diverticula consistent with diverticulosis. The appendix is visualized and appears normal. There is diffuse atherosclerotic calcification of the abdominal aorta, without a demonstrated aneurysm. Normal inferior vena cava. Normal retroperitoneum. Normal urinary bladder. Normal abdominal wall. There are diffuse degenerative changes of the visualized lumbar spine. Mild degree of levoscoliosis. CT/Abdomen/Pelvis W IV Cont ONLY IMPRESSION: 7.7 mm calculus in the midportion of the left ureter with the left hydronephrosis and hydroureter. Electronically Signed: Shivam Raymond, at 13:57 EDT , Service support ,
[2019-08-19] MEDS: Morphine 4 MG/ML Syringe IV (12:29)
[2019-08-19] MEDS: Ondansetron 4 MG/2 ML Vial IV (12:29)
[2019-08-19] MEDS: 0.9% Normal Saline 1,000 ML 1000 ML IV (12:29)
--- NOTE | 2019-08-19 13:00 | ED.VISSUMM ---
- ER Visit Summary Date of Service: 08/19/19 Chief Complaint: Pain History of Present Illness: The patient is a 83 F with left upper quadrant pain. Pain started about 2 hours ago. She never had this before. Nothing seemed to bring it on or make it worse. Nothing seems to make it better. It feels sharp. She has reported some decreased urination and constipation recently, but no changes today. History of stroke, CHF, hypertension, atrial for ablation, hypothyroidism, cardiomyopathy. She does take Eliquis. Physical Examination: Afebrile and vital signs unremarkable. Patient alert and oriented. No acute distress. Heart regular rate and rhythm. Lungs clear. Abdomen tender in the left upper quadrant. No guarding or rebound. Skin appears normal. Test Results: Labs, urinalysis, imaging pending. Emergency Department Course and Treatment: Patient treated with fluids, morphine, Zofran while awaiting results. Labs unremarkable. Urinalysis shows some red cells. CT shows a 7.7 mm stone in the left mid ureter. Patient had continued pain and required Dilaudid. I spoke with Dr. Cueva who will admit for further care. Treatment Plan: As above Disposition: Admission Impression: 1. Ureteral colic This note was generated with [employer] dictation software. It may contain incorrect words, spelling, and punctuation that were not noted in review of the chart prior to signing ED Disposition - Plan for ED Patient: Referrals: Ben Loomis MD [Primary Care Provider] -
[2019-08-19 13:02] LABS: Absolute Lymphocyte Count 1.06 X10^3/uL (0.83-4.51); Absolute Neutrophil Count 3.7 X10^3/uL (2.0-7.7); Basophil# 0.05 X10^3/uL; Basophil% 0.9 % (0-1); Eosinophil# 0.28 X10^3/uL; Eosinophils% 4.9 % (0-5); Hematocrit 37.1 % (37-47); Hemoglobin 12.1 g/dL (12.0-15.0); Lymphocyte # 1.06 X10^3/ul (4.0); Lymphocyte % 18.7 % (19-41); Mean Corp Hgb Conc 32.6 g/dL (32-36); Mean Corpuscular Hgb 31.8 pg (27.0-32.0); Mean Corpuscular Volume 97.4 fL (81-99); Mean Platelet Vol. 11.2 fl (6.2-12.0); Monocyte# 0.61 X10^3/uL; Monocyte% 10.8 % (0-10); NRBC Flagged by Analyzer 0 % (0-5); Neutrophil # 3.66 X10^3/uL (2.7-7.7); Neutrophil % 64.5 % (47-70); Platelet Count 264 K/mm3 (150-450); RBC Distribution Width CV 15.6 % (11.6-14.6); RBC Distribution Width SD 55.6 fl (35.1-43.9); Red Blood Count 3.81 M/mm3 (4.2-5.4); White Blood Count 5.7 K/mm3 (4.4-11.0)
[2019-08-19 13:15] LABS: ALB/GLOB Ratio 0.7 RATIO (0.9-2.4); AST(SGOT) 29 U/L (15-37); Alanine Aminotransfer ALT/SGPT 37 U/L (13-56); Albumin, Serum 2.9 g/dL (3.2-5.0); Alkaline Phosphatase 112 U/L (45-117); Anion Gap 6 (5-15); BUN 12 mg/dL (7-18); BUN/Creat Ratio 7.7 RATIO (10-20); Calcium,Total 9.4 mg/dL (8.5-10.1); Chloride 108 mmol/L (98-107); Creatinine, Serum 1.56 mg/dL (0.55-1.02); EST Glomerular Filtration Rate 34 mL/min (>60); Est Glom Filt Rate - Afr Amer 41 mL/min (>60); Estimated Creatinine Clearance 21.34 ml/min; Glucose 93 mg/dL (74-106); Lipase 91 U/L (73-393); Potassium 3.9 mmol/L (3.5-5.1); Protein, Total 6.9 g/dL (6.4-8.2); Sodium Level 142 mmol/L (136-145)
[2019-08-19 13:17] LABS: Mucous, Urine 0 SEEN /hpf (<or=2+)
[2019-08-19 13:20] LABS: Color, Urine Yellow (Yellow); Glucose, Dipstick Normal (Normal); Ketone-Dipstick Negative (Negative); Leukocyte Esterase-Dipstick 25 /ul (Negative); Nitrite-Dipstick Negative (Negative); Occult Blood-Urine 250 /ul (Negative); Protein-Dipstick 30 mg/dl (Negative); Urine Bilirubin Dipstick Negative (Negative); Urine Clarity Cloudy (Clear); Urine Urobilinogen Normal (Normal)
[2019-08-19 13:52] LABS: Bacteria 1+ /hpf (None Seen); Red Blood Cells-Urine 25-50 SEEN /hpf (0-5); Squamous Epithelial Cells - UA 0-5 SEEN /hpf (5-10); White Blood Cells 0-5 SEEN /hpf (0-5)
--- NOTE | 2019-08-19 14:34 | NURSING ---
MED SURG [facility] URETERAL COLIC
[2019-08-19 14:40] VITALS: BP 129/43; PULSE 58; RESP 16; O2SAT 94
[2019-08-19] MEDS: HYDROmorphone 1 MG/ML Syringe IV (14:41)
[2019-08-19 15:14] VITALS: PULSE 60; O2SAT 93; BMI 25.3
[2019-08-19 15:19] VITALS: BP 134/52; PULSE 60; RESP 18; TEMP 36.8; O2SAT 93
[2019-08-19 15:21] VITALS: BMI 25.3
--- NOTE | 2019-08-19 15:51 | PCM.HP.STD ---
History of Present Illness Date of Admission: 08/19/19 Chief Complaint: left ureteral calculi 7mm The patient is a 83 year old Female with 7mm obstructing stone in mid left ureter. admitted for pain control. plan to proceed with cyto stent in am. Past Medical History Past Medical History (Chronic Problems): Chronic Problems (Last Reviewed 02/18/19 @ 11:44 by Gary Bullard MD) Urinary retention (Chronic) Stroke (Chronic) Atrial fibrillation (Chronic) Vascular dementia (Chronic) Expressive aphasia (Chronic) Allergic rhinitis (Chronic) Hypothyroidism (Chronic) Muscle spasm (Chronic) Hypertension (Chronic) Essential (primary) hypertension (Chronic) History of breast cancer (Chronic) 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) last ECHO with a 35 % EF Secondary pulmonary arterial hypertension (Chronic) Nonrheumatic aortic valve insufficiency (Chronic) Nonrheumatic mitral (valve) insufficiency (Chronic) Non-rheumatic tricuspid valve insufficiency (Chronic) Paroxysmal atrial fibrillation (Chronic) 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) Medical History: Medical History (Last Reviewed 08/19/19 @ 15:53 by Ortiz Cueva MD) Essential (primary) hypertension (Chronic) I10 History of breast cancer (Chronic) Z85.3 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) I43 last ECHO with a 35 % EF Secondary pulmonary arterial hypertension (Chronic) I27.21 Nonrheumatic aortic valve insufficiency (Chronic) I35.1 Nonrheumatic mitral (valve) insufficiency (Chronic) I34.0 Non-rheumatic tricuspid valve insufficiency (Chronic) I36.1 Paroxysmal atrial fibrillation (Chronic) I48.0 Chronic systolic (congestive) heart failure (Acute) I50.22 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) Z79.01 Hypothyroidism E03.9 Anxiety and depression F41.9, F32.9 Dementia F03.90 Expressive aphasia R47.01 Joint pain M25.50 Breast cancer C50.919 Allergies Penicillins [PCN] Allergy (Verified 07/27/19 18:16) Rash Home Medications: Ambulatory Orders Medication Instructions Recorded Amiodarone HCl [Cordarone] 200 mg PO DAILY 10/06/18 Dymista 1 puff NASAL BID PRN PRN 10/06/18 Cyanocobalamin (Vitamin B-12) 1,000 mcg PO DAILY 11/02/18 [B-12] cyclobenzaprine 5 mg tablet 5 mg PO BID tab 05/30/19 duloxetine 20 mg capsule,delayed 20 mg PO QHS cap 05/30/19 release Apixaban [Eliquis] 2.5 mg PO BID 08/03/19 Carvedilol [Coreg (Beta Kori)] 3.125 mg PO BID 08/03/19 Furosemide [Lasix] 20 mg PO QODAY 08/03/19 Sodium Chloride 0.65% [[place] Nasal 1 spray NASAL TID PRN PRN 08/10/19 [place]] spray.btl traMADol [Ultram] 50 mg PO Q6H PRN PRN tab 08/10/19 Acetaminophen [Tylenol Arthritis] 1,300 mg PO DAILY PRN PRN 08/19/19 Calcium Citrate/Vitamin D3 1 tab PO TID 08/19/19 [Calcium Cit 315-Vit D3 200 Tab] Cholecalciferol (Vitamin D3) 2,000 unit PO DAILY 08/19/19 [D3-2000] Levothyroxine Sodium [Levoxyl] 50 mcg PO DAILY 08/19/19 Memantine Hydrochloride [Namenda] 10 mg PO BID 08/19/19 Surgical History: Surgical History (Last Reviewed 08/19/19 @ 15:53 by Ortiz Cueva MD) H/O right mastectomy Z90.11 Surgical History: appendectomy, cataract, mastectomy - Right., - - Lumpectomy, tubal ligation, right breast mass biopsy. 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 Smoking Status: Never smoker Tobacco Use: Non-smoker - *Family History Maternal Family History: Family History (Last Reviewed 08/19/19 @ 15:53 by Ortiz Cueva MD) Grandmother Diabetes History Items: No pertinent history Paternal Family History: Family History (Last Reviewed 08/19/19 @ 15:53 by Ortiz Cueva MD) Grandmother Diabetes History Items: No pertinent history Review of Systems Constitutional: Denies: Chills, Fever, Weight Change HEENT: Denies: Head Aches, Sinus Congestion, Sinus Drainage Cardiovascular: Denies: Chest Pain, Palpitations Respiratory: Denies: Cough, Shortness of breath at rest, Sputum production Gastrointestinal: Reports: Abdominal Pain. Denies: Nausea, Vomiting Genitourinary: Reports: Hematuria. Denies: Dysuria Musculoskeletal: Denies: Joint Pain, Joint Tenderness Skin: Denies: Rash, Wounds Neurological: Denies: Numbness, Tingling, Focal weakness Psychiatric: Denies: Anxiety, Depression, Homicidal Ideations, Suicidal Ideations Hematologic/ Lymphatic: Denies: Easy Bruising, Easy Bleeding VTE Information - Inpt Only VTE Present on Admission: No VTE Mechan Device Prophylaxis: SCD's - Physical Exam General: Alert, Oriented x3, Cooperative HEENT: Atraumatic, PERRLA, EOMI, Normocephalic Neck: Supple, No JVD, Negative Carotid Bruits Lungs: Clear to auscultation, Normal air movement Cardiovascular: Regular rate, No murmurs Abdomen: Bowel Sounds Present, Soft, Non Tender Extremities: No edema, Capillary Refill Less than 3 Seconds Skin: No rashes, No breakdown Musculoskeletal: No Tenderness to Palpation of Joints or Extremities Neurological: Cranial nerves II-XII grossly intact Psych/Mental Status: Normal Affect, Appropriate Vital Signs Temp Pulse Resp BP Pulse Ox 98.2 F 60 18 134/52 H 93 08/19/19 15:19 08/19/19 15:19 08/19/19 15:19 08/19/19 15:19 08/19/19 15:19 Oxygen Delivery Method Room Air Weight: 60.8 kg Body Mass Index (BMI) 25.3 Intake and Output for Last 24 Hours 08/17/19 08/18/19 08/19/19 23:59 23:59 23:59 Intake Total 1000 / 1000 Balance 1000 / 1000 Laboratory Tests Past 24 Hrs 08/19/19 08/19/19 08/19/19 12:36 12:36 13:05 WBC 5.7 RBC 3.81 L Hgb 12.1 Hct 37.1 MCV 97.4 MCH 31.8 MCHC 32.6 RDW Std Deviation 55.6 H RDW Coeff of Silvano 15.6 H Plt Count 264 MPV 11.2 Immature Gran % (Auto) 0.200 Neut % (Auto) 64.5 Lymph % (Auto) 18.7 L [place] % (Auto) 10.8 H Eos % (Auto) 4.9 Baso % (Auto) 0.9 Absolute Neuts (auto) 3.7 Absolute Lymphs (auto) 1.06 Nucleated RBC % 0 Sodium 142 Potassium 3.9 Chloride 108 H Carbon Dioxide 28.0 Anion Gap 6 BUN 12 Creatinine 1.56 H Estim Creat Clear Calc 21.34 Est GFR (MDRD) Af Amer 41 L Est GFR (MDRD) Non-Af 34 L BUN/Creatinine Ratio 7.7 L Glucose 93 Calcium 9.4 Total Bilirubin 0.90 AST 29 ALT 37 Alkaline Phosphatase 112 Total Protein 6.9 Albumin 2.9 L Globulin 4.0 Albumin/Globulin Ratio 0.7 L Lipase 91 Urine Color Yellow Urine Clarity Cloudy Urine pH 8.0 Ur Specific [place] 1.010 Urine Protein 30 H Urine Glucose (UA) Normal Urine Ketones Negative Urine Occult Blood 250 H Urine Nitrite Negative Urine Bilirubin Negative Urine Urobilinogen Normal Ur Leukocyte Esterase 25 H Urine RBC 25-50 SEEN Urine WBC 0-5 SEEN Ur Squamous Epith Cells 0-5 SEEN Urine Bacteria 1+ Urine Mucus 0 SEEN Assessment/Plan All Active Problems (Last Reviewed 02/18/19 @ 11:44 by Gary Bullard MD) Debility (Acute) Acute on chronic systolic heart failure (Acute) Hypotension (Acute) HFrEF (heart failure with reduced ejection fraction) (Acute) Weakness (Acute) Chronic systolic (congestive) heart failure (Acute) admit for pain control npo at midnight for stent placement tommorrow in or consult medical hold blood thinners.
[2019-08-19] MEDS: 0.9% Normal Saline 1,000 ML 75 ML IV (16:55)
[2019-08-19 20:07] VITALS: O2SAT 85
[2019-08-19 21:20] VITALS: BP 111/61; PULSE 60; RESP 18; TEMP 36.4; O2SAT 95
[2019-08-19] MEDS: Ciprofloxacin 400 MG/200 ML BAG 200 MG IV (21:25)
[2019-08-19] MEDS: cycloBENZAPRine HCl 5 MG TABLET PO (21:26)
[2019-08-19] MEDS: DULoxetine Hcl 20 MG Capsule PO (21:26)
[2019-08-19] MEDS: Carvedilol 3.125 MG TABLET PO (21:26)
[2019-08-19] MEDS: Docusate Sodium 100 MG Capsule PO (21:26)
[2019-08-19] MEDS: Memantine Hydrochloride 10 MG Tablet PO (21:26)
[2019-08-20] VITALS (20 sets, daily range): BP systolic 102–140; BP diastolic 40–83; PULSE 53–66; RESP 16–18; TEMP 36.4–37.4; O2SAT 83–100; BMI 25.3
[2019-08-20] MEDS: 0.9% Normal Saline 1,000 ML 75 ML IV ×2 (06:05→09:54)
[2019-08-20 06:58] LABS: Absolute Lymphocyte Count 0.58 X10^3/uL (0.83-4.51); Absolute Neutrophil Count 4.5 X10^3/uL (2.0-7.7); Basophil# 0.05 X10^3/uL; Basophil% 0.8 % (0-1); Eosinophil# 0.37 X10^3/uL; Eosinophils% 6.1 % (0-5); Hematocrit 32.5 % (37-47); Hemoglobin 10.1 g/dL (12.0-15.0); Lymphocyte # 0.58 X10^3/ul (4.0); Lymphocyte % 9.5 % (19-41); Mean Corp Hgb Conc 31.1 g/dL (32-36); Mean Corpuscular Hgb 31.7 pg (27.0-32.0); Mean Corpuscular Volume 101.9 fL (81-99); Mean Platelet Vol. 10.5 fl (6.2-12.0); Monocyte# 0.56 X10^3/uL; Monocyte% 9.2 % (0-10); NRBC Flagged by Analyzer 0 % (0-5); Neutrophil # 4.51 X10^3/uL (2.7-7.7); Neutrophil % 74.1 % (47-70); POSITIVE DIFFERENTIAL YES; Platelet Count 213 K/mm3 (150-450); RBC Distribution Width CV 15.9 % (11.6-14.6); RBC Distribution Width SD 59.5 fl (35.1-43.9); Red Blood Count 3.19 M/mm3 (4.2-5.4); White Blood Count 6.1 K/mm3 (4.4-11.0)
[2019-08-20 07:05] LABS: International Normalized Ratio 1.3; Prothrombin Time (Protime)PT. 15.9 SECONDS (11.7-14.9)
[2019-08-20 07:06] LABS: Partial Thromboplast Time 35.4 Seconds (24.1-36.2)
[2019-08-20 07:24] LABS: Differential Indicated SCAN CRITERIA MET
[2019-08-20 07:33] LABS: AST(SGOT) 26 U/L (15-37); Alanine Aminotransfer ALT/SGPT 28 U/L (13-56); Albumin, Serum 2.3 g/dL (3.2-5.0); Alkaline Phosphatase 86 U/L (45-117); Anion Gap 4 (5-15); BUN 12 mg/dL (7-18); BUN/Creat Ratio 7.8 RATIO (10-20); Bilirubin, Direct 0.16 mg/dL (0.00-0.30); Calcium,Total 7.8 mg/dL (8.5-10.1); Chloride 111 mmol/L (98-107); Creatinine, Serum 1.53 mg/dL (0.55-1.02); EST Glomerular Filtration Rate 35 mL/min (>60); Est Glom Filt Rate - Afr Amer 42 mL/min (>60); Estimated Creatinine Clearance 21.76 ml/min; Glucose 103 mg/dL (74-106); Potassium 3.9 mmol/L (3.5-5.1); Protein, Total 5.3 g/dL (6.4-8.2); Sodium Level 141 mmol/L (136-145); Thyroid Stim Hormone (TSH) 1.05 uIU/mL (0.358-3.74)
--- NOTE | 2019-08-20 08:02 | DCINST_ITS ---
Discharge Diet: Light diet - advance as tolerated Discharge Activity: Return to Normal Activity Call your doctor if your incision/area has: Sudden Increased Bleeding Call your doctor if you observe: Fever of 101 or Higher Instructions: Ureteral Stents Allergies/Adverse Reactions: Allergies Penicillins [PCN] Allergy (Verified 07/27/19 18:16) Rash Medications to take at Discharge Dymista 1 puff NASAL BID PRN PRN 10/06/18 RX: Amiodarone HCl [Cordarone] 200 mg PO DAILY 10/06/18 RX: Cyanocobalamin (Vitamin B-12) [B-12] 1,000 mcg PO DAILY 11/02/18 cyclobenzaprine 5 mg tablet 5 mg PO BID tab 05/30/19 duloxetine 20 mg capsule,delayed release 20 mg PO QHS cap 05/30/19 RX: Apixaban [Eliquis] 2.5 mg PO BID 08/03/19 RX: Carvedilol [Coreg (Beta Kori)] 3.125 mg PO BID 08/03/19 RX: Furosemide [Lasix] 20 mg PO QODAY 08/03/19 RX: Sodium Chloride 0.65% [[place] Nasal [place]] 1 spray NASAL TID PRN PRN spray.btl 08/10/19 RX: traMADol [Ultram] 50 mg PO Q6H PRN PRN tab 08/10/19 Acetaminophen [Tylenol Arthritis] 1,300 mg PO DAILY PRN PRN 08/19/19 Calcium Citrate/Vitamin D3 [Calcium Cit 315-Vit D3 200 Tab] 1 tab PO TID 08/19/19 Cholecalciferol (Vitamin D3) [D3-2000] 2,000 unit PO DAILY 08/19/19 Levothyroxine Sodium [Levoxyl] 50 mcg PO DAILY 08/19/19 RX: Memantine Hydrochloride [Namenda] 10 mg PO BID 08/19/19 Primary Care Physician: Ben Loomis MD [Primary Care Provider] - Test Results: Test results from this visit will be discussed in further detail at your follow- up appointment, if applicable. Please Follow Up With: Ortiz Cueva MD When: please call to make an appointment.
--- NOTE | 2019-08-20 08:02 | NURSING ---
called report to surgery. pt left for surgery.
--- NOTE | 2019-08-20 08:07 | PCM.DC.URO ---
Discharge Diet: Light diet - advance as tolerated Discharge Activity: Return to Normal Activity Additional Activity Instructions:: f you have a catheter, remove on ___. If you have any problems after catheter is removed, call [phone] and ask for your doctor to be paged. Please be aware that pain medications may cause nausea. You should typically eat light foods as you take your pain medication. Pain medication may cause constipation, if this is a problem for you, please discuss with your doctor. Call your doctor if your incision/area has: Sudden Increased Bleeding Call your doctor if you observe: Fever of 101 or Higher Instructions: Ureteral Stents Allergies/Adverse Reactions: Allergies Penicillins [PCN] Allergy (Verified 07/27/19 18:16) Rash Medications to take at Discharge Amiodarone HCl [Cordarone] 200 mg PO DAILY 10/06/18 Dymista 1 puff NASAL BID PRN PRN 10/06/18 Cyanocobalamin (Vitamin B-12) [B-12] 1,000 mcg PO DAILY 11/02/18 cyclobenzaprine 5 mg tablet 5 mg PO BID tab 05/30/19 duloxetine 20 mg capsule,delayed release 20 mg PO QHS cap 05/30/19 Apixaban [Eliquis] 2.5 mg PO BID 08/03/19 Carvedilol [Coreg (Beta Kori)] 3.125 mg PO BID 08/03/19 Furosemide [Lasix] 20 mg PO QODAY 08/03/19 Sodium Chloride 0.65% [[place] Nasal [place]] 1 spray NASAL TID PRN PRN spray.btl 08/10/19 traMADol [Ultram] 50 mg PO Q6H PRN PRN tab 08/10/19 Acetaminophen [Tylenol Arthritis] 1,300 mg PO DAILY PRN PRN 08/19/19 Calcium Citrate/Vitamin D3 [Calcium Cit 315-Vit D3 200 Tab] 1 tab PO TID 08/19/19 Cholecalciferol (Vitamin D3) [D3-2000] 2,000 unit PO DAILY 08/19/19 Levothyroxine Sodium [Levoxyl] 50 mcg PO DAILY 08/19/19 Memantine Hydrochloride [Namenda] 10 mg PO BID 08/19/19 Ciprofloxacin [Cipro] 250 mg PO BID #6 tab 08/20/19 traMADol [Ultram (G)] 50 mg PO Q4H PRN PRN 5 Days #14 tab 08/20/19 The following prescriptions were given: Ciprofloxacin [Cipro] 250 mg PO BID #6 tab Prescription Printed traMADol [Ultram (G)] 50 mg PO Q4H PRN PRN 5 Days #14 tab PRN Reason: Pain Score 1-10/10 Prescription Printed Primary Care Physician: Ben Loomis MD [Primary Care Provider] - Test Results: Test results from this visit will be discussed in further detail at your follow-up appointment, if applicable. Please Follow Up With: Ortiz Cueva MD When: please call to make an appointment.
[2019-08-20] MEDS: Lidocaine Jelly 2% 20 ML Syringe (URO-JET) 20 APPLIC (08:25)
--- NOTE | 2019-08-20 08:33 | OP.PCM_ITS ---
Report of Operation Date of Procedure: 08/20/19 Pre-Operative Diagnosis: Left obstructing mid ureteral calculi Post-Operative Diagnosis: The same Surgery/Procedure Performed:: Cystoscopy, left retrograde pyelogram, interpretation fluoroscopic images, manipulation of stone, placement of the stent left side. Description of Surgical Findings:: 83-year-old female presented to the hospital with severe renal colic from an obstructing stone in the mid ureter she was admitted for pain control plan to take her surgery today for placement of a stent. She is been off her blood thinners. She was given preoperative antibiotics. SCDs for DVT prophylaxis. She will undergo stent placement today and then will need definitive treatment of stone at a later setting. 83-year-old female taken back to the operating room after smooth induction of anesthesia she was placed supine on the table in dorsolithotomy position, urethra and vaginal area were prepped and draped in usual sterile fashion, injected lidocaine jelly into the urethra, went into the bladder with a 21 [place] rigid cystourethroscope, the urethra was normal the bladder was normal no tumors or stones seen within the bladder I then identified the trigone identified the left ureteral orifice the urine was fairly murky, urine culture was sent off. I then cannulated the left ureteral orifice with a Glidewire and a [place]ack catheter performed a retrograde pyelogram interpreted fluoroscopic images. I then used the Pollick catheter to push the stone further up the ureter. After manipulating the stone further up the ureter so could be treated with shockwave lithotripsy later this week I then advanced a wire up into the kidney over the wire place a stent 6 [place] by 26 cm stent left the short string of the stent. Once the stent was placed to drain the bladder patient anesthetic reversed and will be discharged home today and follow-up later this week for shockwave lithotripsy. Type of Anesthesia:: General Drains: stent - Admit VTE Documentation VTE Present on Admission: No VTE Mechan Device Prophylaxis: SCD's
[2019-08-20 08:52] LABS: Bacteria 0 SEEN /hpf (None Seen); Mucous, Urine 0 SEEN /hpf (<or=2+); Squamous Epithelial Cells - UA 0 SEEN /hpf (5-10)
[2019-08-20 09:12] LABS: Color, Urine Red (Yellow); Glucose, Dipstick Normal (Normal); Ketone-Dipstick Negative (Negative); Leukocyte Esterase-Dipstick 25 /ul (Negative); Nitrite-Dipstick Positive (Negative); Occult Blood-Urine 250 /ul (Negative); Protein-Dipstick 30 mg/dl (Negative); Specific Gravity, Urine 1.005 (1.002-1.030); Urine Bilirubin Dipstick Negative (Negative); Urine Clarity Sl. Cloudy (Clear); Urine Urobilinogen Normal (Normal)
[2019-08-20 09:20] LABS: Red Blood Cells-Urine > 100 SEEN /hpf (0-5)
[2019-08-20 09:21] LABS: White Blood Cells 0-5 SEEN /hpf (0-5)
[2019-08-20] MEDS: Docusate Sodium 100 MG Capsule PO ×2 (09:47→20:42)
[2019-08-20] MEDS: Pantoprazole Sodium 40 MG Tablet PO (09:47)
[2019-08-20] MEDS: Amiodarone 200 MG Tablet PO (09:48)
[2019-08-20] MEDS: Carvedilol 3.125 MG TABLET PO ×2 (09:48→20:42)
[2019-08-20] MEDS: Calcium Carb/Vitamin D 1 TABLET Tablet PO ×3 (09:48→17:08)
[2019-08-20] MEDS: Cyanocobalamin 500 MCG Tablet 1000 MCG PO (09:49)
[2019-08-20] MEDS: Memantine Hydrochloride 10 MG Tablet PO ×2 (09:49→20:43)
[2019-08-20] MEDS: cycloBENZAPRine HCl 5 MG TABLET PO ×2 (09:49→20:42)
[2019-08-20] MEDS: Ciprofloxacin 400 MG/200 ML BAG 200 MG IV (09:54)
--- NOTE | 2019-08-20 18:15 | PCM.PN.HOSP ---
Subjective: 83 yo F with a h/o chronic systolic heart failure presents to the hospital for a ureteral stent to a 7 mm obstructing stone in the mid left ureter. She was recently admitted to the hospital for acute hypoxic respiratory failure and was diuresed for her heart failure at that time. Also she was having difficulty controlling her INR with Coumadin and therefore she was switched to Eliquis at 2.5 mg p.o. twice daily. She was discharged to TCU where she underwent therapy and did well. And has been home for a couple of days before discovering the stone and needing the stent. She was set to go home today however she became short of breath and on pulse ox was found to be hypoxic down to 83% on room air. She responded with 3 L nasal cannula, however she does not wear any oxygen at home. Vitals/I&O's: Vital Signs Temp Pulse Resp BP Pulse Ox 97.7 F L 53 L 16 117/51 L 92 08/20/19 16:16 08/20/19 16:16 08/20/19 16:16 08/20/19 16:16 08/20/19 17:35 Oxygen Flow Rate (L/min) 3.5 Oxygen Delivery Method Nasal Cannula Weight: 134 lb 0.657 oz Body Mass Index (BMI) 25.3 Intake and Output for Last 24 Hours 08/18/19 08/19/19 08/20/19 23:59 23:59 23:59 Intake Total 2630.0 / 2630.0 1646.25 / 1646.25 Output Total 100 / 100 400 / 400 Balance 2530.0 / 2530.0 1246.25 / 1246.25 General: Alert, Oriented x3, Cooperative, No apparent distress HEENT: Atraumatic, PERRLA, EOMI, Normocephalic Oral: Moist Mucosa Neck: Supple, No JVD Lungs: Normal air movement, No rhonchi, No wheeze, No rales, - - Very mild crackles Cardiovascular: Regular rate, Regular Rhythm, Normal S1, Normal S2, No murmurs Abdomen: Soft, Non Tender, Non-Distended, No Hepato-splenomegaly Extremities: No edema, Capillary Refill Less than 3 Seconds Skin: No rashes, No breakdown Neurological: Neuro grossly intact, Sensory exam intact to light touch and pain Psych/Mental Status: Normal Affect, Appropriate Laboratory Results 08/20/19 06:48: PT 15.9 H, INR 1.3, APTT 35.4 08/20/19 06:48: Sodium 141, Potassium 3.9, Chloride 111 H, Carbon Dioxide 26.0, Anion Gap 4 L, BUN 12, Creatinine 1.53 H, Estim Creat Clear Calc 21.76, Est GFR (MDRD) Af Amer 42 L, Est GFR (MDRD) Non-Af 35 L, BUN/Creatinine Ratio 7.8 L, Glucose 103, Calcium 7.8 L, Total Bilirubin 0.70, Direct Bilirubin 0.16, AST 26, ALT 28, Alkaline Phosphatase 86, Total Protein 5.3 L, Albumin 2.3 L, Globulin 3.0, TSH 1.05 08/20/19 06:48: WBC 6.1, RBC 3.19 L, Hgb 10.1 L, Hct 32.5 L, MCV 101.9 H, MCH 31.7, MCHC 31.1 L, RDW Std Deviation 59.5 H, RDW Coeff of Silvano 15.9 H, Plt Count 213, MPV 10.5, Immature Gran % (Auto) 0.300, Neut % (Auto) 74.1 H, Lymph % (Auto) 9.5 L, [place] % (Auto) 9.2, Eos % (Auto) 6.1 H, Baso % (Auto) 0.8, Absolute Neuts (auto) 4.5, Absolute Lymphs (auto) 0.58 L, Nucleated RBC % 0 08/20/19 : Urine Color Red, Urine Clarity Sl. Cloudy, Urine pH 5.0, Ur Specific [place] 1.005, Urine Protein 30 H, Urine Glucose (UA) Normal, Urine Ketones Negative, Urine Occult Blood 250 H, Urine Nitrite Positive H, Urine Bilirubin Negative, Urine Urobilinogen Normal, Ur Leukocyte Esterase 25 H, Urine RBC > 100 SEEN, Urine WBC 0-5 SEEN, Ur Squamous Epith Cells 0 SEEN, Urine Bacteria 0 SEEN, Urine Mucus 0 SEEN Current Medications Acetaminophen (Tylenol) 325 mg PO Q4H PRN PRN PRN Reason: Pain Score 1-08/11 Al Hydroxide/Mg Hydroxide ([place]ylanta Ii) 30 ml PO Q4H PRN PRN PRN Reason: Heartburn Amiodarone HCl (Cordarone) 200 mg PO DAILY@0800 YARY Last Admin: 08/20/19 09:48 Dose: 200 mg Documented by: Apixaban (Eliquis) 2.5 mg PO BID [facility] Azelastine HCl (Astelin) 1 spray NASAL BID PRN PRN PRN Reason: RUNNY NOSE Calcium/Vitamin D (Os-[place] 500mg + D) 1 tablet PO TIDCM [facility] Last Admin: 08/20/19 17:08 Dose: 1 tablet Documented by: Carvedilol (Coreg) 3.125 mg PO BID [facility] Last Admin: 08/20/19 09:48 Dose: 3.125 mg Documented by: Cholecalciferol (Vitamin D) 2,000 unit PO DAILY [facility] Last Admin: 08/20/19 09:47 Dose: 2,000 unit Documented by: Cyanocobalamin (Vitamin B12) 1,000 mcg PO DAILY [facility] Last Admin: 08/20/19 09:49 Dose: 1,000 mcg Documented by: Cyclobenzaprine HCl (Cyclobenzaprine Hcl) 5 mg PO BID [facility] Last Admin: 08/20/19 09:49 Dose: 5 mg Documented by: Docusate Sodium (Colace) 100 mg PO BID [facility] Last Admin: 08/20/19 09:47 Dose: 100 mg Documented by: Duloxetine HCl (Cymbalta) 20 mg PO QHS [facility] Last Admin: 08/19/19 21:26 Dose: 20 mg Documented by: Fluticasone Propionate (Flonase Nasal [place]) 1 spray NASAL BID PRN PRN PRN Reason: RUNNY NOSE Furosemide (Lasix) 20 mg PO QODAY [facility] Ibuprofen (Motrin) 600 mg PO Q6H PRN PRN PRN Reason: Pain Score 1-10/10 Levothyroxine Sodium (Synthroid) 50 mcg PO DAILY@0600 [facility] Last Admin: 08/20/19 01:27 Dose: Not Given Documented by: Memantine (Namenda) 10 mg PO BID [facility] Last Admin: 08/20/19 09:49 Dose: 10 mg Documented by: Nutritional Formula (Lactose Free) (Ensure Enlive) 120 ml PO 4X/DAY [facility] Last Admin: 08/20/19 17:08 Dose: 120 ml Documented by: Oxycodone HCl (Oxyir) 5 mg PO Q4H PRN PRN PRN Reason: Pain Score 1-10/10 Pantoprazole Sodium (Protonix) 40 mg PO DAILY [facility] Last Admin: 08/20/19 09:47 Dose: 40 mg Documented by: Sodium Chloride ([place] Nasal [place]) 1 spray NASAL TID PRN PRN PRN Reason: NASAL DRYNESS Tramadol HCl (Ultram) 50 mg PO Q6H PRN PRN PRN Reason: Pain Score 4-6 STROKE Vital Signs/Narrative: Vital Signs Temp Pulse Resp BP Pulse Ox 08/20/19 17:35 92 08/20/19 16:16 97.7 F L 53 L 16 117/51 L 95 08/20/19 15:09 97.5 F L 57 L 16 105/40 L 93 Medical Necessity - Tobacco Use Smoking Status: Never smoker Tobacco Use: Non-smoker Assessment/Plan All Active Problems (Last Reviewed 08/19/19 @ 15:53 by Ortiz Cueva MD) Debility (Acute) Acute on chronic systolic heart failure (Acute) Hypotension (Acute) HFrEF (heart failure with reduced ejection fraction) (Acute) Weakness (Acute) Chronic systolic (congestive) heart failure (Acute) 1. Acute hypoxic respiratory failure of unknown etiology -We will continue with the nasal cannula for now at 3 L and wean as able. -My concern is that this could just be anesthesia that has not worn off yet versus is a little bit of fluid overload as she received about 2 to 3 L of fluid since she is been here. -We can resume her Lasix p.o. for now, hold IV fluids -We will encourage ambulation -Unlikely to be a PE since she is on Eliquis for the last 4 weeks -We will obtain a chest x-ray for further evaluation -No leukocytosis or fever 2. Nephrolithiasis -Status post stent -Continue with Cipro per primary 3. Ischemic cardiomyopathy with chronic systolic CHF/paroxysmal A. fib -She does not appear to be in exacerbation with her CHF, will continue with her home Coreg, aspirin, and amiodarone -Continue with Eliquis -Echo in May 2019, with an EF of 35% and stage II diastolic dysfunction, she does not have edema 4. Dementia/depression/anxiety -Stable -Continue with Cymbalta, memantine 5. Hypothyroidism -TSH 9 months ago was 4.32 with a free T4 of 0.96 -Continue with her home Synthroid DVT: Eliquis Code Visit Inpatient E&M: 69295 Subs Hosp L3
--- NOTE | 2019-08-20 18:45 | RAD_ITS ---
STUDY: X-RAY CHEST REASON FOR EXAM: Female, 83 years old. Shortness of breath, trouble breathing. TECHNIQUE: Frontal and lateral chest. COMPARISON: 07/31/2019 chest radiograph. FINDINGS: Acute groundglass opacities involving the upper thirds of both lungs. New compared to prior. Underlying chronic mild interstitial lung disease. No apparent pneumothorax. Mild blunting of both costophrenic sulci suggestive of small pleural effusions. Mild cardiomegaly unchanged. No acute osseous abnormality, no apparent free air under the diaphragm. RAD/Chest PA and Lateral IMPRESSION: Acute groundglass opacities bilateral upper lungs. Suspicious for cardiogenic pulmonary edema given the cardiomegaly. Pneumonia, noninfectious pneumonitis also possible. Suspect small pleural effusions. Underlying mild chronic interstitial lung disease. Electronically Signed: Donato Figueroa, at 19:58 EDT Tel , Service support ,
--- NOTE | 2019-08-20 19:56 | NURSING ---
pt having variable pulse ox finger probe and wires changed, denies sob, asked radiology to stat read chest xray for dr. pt and family report she took her 3x wk lasix this week. pt doing her incentive and walking. called rx for her nasal spray. will monitor
[2019-08-20] MEDS: Sodium Chloride 0.65% 1 SPRAY SPRAY.BTL NASAL (20:03)
[2019-08-20] MEDS: Azelastine HCl NASAL.SRY 1 SPRAY NASAL (20:04)
[2019-08-20] MEDS: Fluticasone 0.05% 1 SPRAY NASAL.SRY NASAL (20:04)
[2019-08-20] MEDS: Furosemide 40 MG/4 ML Vial IV (20:33)
[2019-08-20] MEDS: Acetaminophen 325 MG Tablet PO (20:33)
[2019-08-20] MEDS: APIXABAN 2.5 MG TABLET PO (20:42)
[2019-08-20] MEDS: DULoxetine Hcl 20 MG Capsule PO (20:43)
--- NOTE | 2019-08-20 20:55 | CPS ---
pt placed on high flow NC with bubble humidy
--- NOTE | 2019-08-20 22:00 | NURSING ---
Called pt's , Dragan Ramirez, at [phone], and requested information regarding's pt's CPAP in case she needed to be placed on it. said she uses 9 cm pressure, no oxygen supplementation, and uses a nasal cushion. This information was conveyed to Ana from CPS while the was still on the phone and she said the information made sense to her.
--- NOTE | 2019-08-20 22:34 | CPS ---
pt placed on hospital cpap machine with home settings of 9 and 45% via nasal mask-santo well
[2019-08-21] VITALS (14 sets, daily range): BP systolic 121–139; BP diastolic 41–73; PULSE 55–88; RESP 16–27; TEMP 36.4–37.2; O2SAT 93–100
[2019-08-21] MEDS: Acetaminophen 325 MG Tablet PO ×2 (05:54→22:31)
[2019-08-21] MEDS: Levothyroxine 50 MCG Tablet PO (05:54)
[2019-08-21] MEDS: Calcium Carb/Vitamin D 1 TABLET Tablet PO ×3 (09:01→17:54)
[2019-08-21] MEDS: Cyanocobalamin 500 MCG Tablet 1000 MCG PO (09:01)
[2019-08-21] MEDS: Pantoprazole Sodium 40 MG Tablet PO (09:01)
[2019-08-21] MEDS: Docusate Sodium 100 MG Capsule PO ×2 (09:01→22:32)
[2019-08-21] MEDS: Memantine Hydrochloride 10 MG Tablet PO ×2 (09:01→22:31)
[2019-08-21] MEDS: Carvedilol 3.125 MG TABLET PO ×2 (09:01→22:31)
[2019-08-21] MEDS: APIXABAN 2.5 MG TABLET PO ×2 (09:02→22:31)
[2019-08-21] MEDS: Amiodarone 200 MG Tablet PO (09:02)
[2019-08-21] MEDS: cycloBENZAPRine HCl 5 MG TABLET PO ×2 (09:02→22:30)
[2019-08-21] MEDS: Furosemide 40 MG/4 ML Vial IV (09:03)
[2019-08-21] MEDS: 0.9% Saline Lock 10 ML Syringe IV (09:09)
--- NOTE | 2019-08-21 09:23 | PCM.PROGNOTE ---
Subjective: 83-year-old female with a history of congestive heart failure and presented with a kidney stone underwent cystoscopy and stent placement we are planning for discharge after the procedure but she is found to have hypoxia requiring oxygen and therefore discharge was canceled hospitalist was consulted for management of her congestive heart failure. This morning she still requires oxygen but she looks stable. - Physical Exam General: Alert, Oriented x3, Cooperative HEENT: Atraumatic, PERRLA, EOMI, Normocephalic Neck: Supple, No JVD, Negative Carotid Bruits Lungs: Clear to auscultation, Normal air movement Cardiovascular: Regular rate, No murmurs Abdomen: Bowel Sounds Present, Soft, Non Tender Extremities: No edema, Capillary Refill Less than 3 Seconds Skin: No rashes, No breakdown Musculoskeletal: No Tenderness to Palpation of Joints or Extremities Neurological: Cranial nerves II-XII grossly intact Psych/Mental Status: Normal Affect, Appropriate Vital Signs Temp Pulse Resp BP Pulse Ox 98.1 F 59 L 18 139/70 H 93 08/21/19 07:41 08/21/19 07:41 08/21/19 07:41 08/21/19 07:41 08/21/19 09:16 Oxygen Flow Rate (L/min) 3 Oxygen Delivery Method Nasal Cannula Weight: 60.8 kg Body Mass Index (BMI) 25.3 Intake and Output for Last 24 Hours 08/19/19 08/20/19 08/21/19 23:59 23:59 23:59 Intake Total 2630.0 / 2630.0 1746.25 / 1746.25 50 / 50 Output Total 100 / 100 1100 / 1100 550 / 550 Balance 2530.0 / 2530.0 646.25 / 646.25 -500 / -500 Medical Necessity - Tobacco Use Smoking Status: Never smoker Tobacco Use: Non-smoker Assessment/Plan All Active Problems (Last Reviewed 08/19/19 @ 15:53 by Ortiz Cueva MD) Debility (Acute) Acute on chronic systolic heart failure (Acute) Hypotension (Acute) HFrEF (heart failure with reduced ejection fraction) (Acute) Weakness (Acute) Chronic systolic (congestive) heart failure (Acute) Assessment and plan 83-year-old female status post stent placement on the left side for an obstructing stone, discharge was canceled due to hypoxia congestive heart failure will continue with admission to hospital she is restarted on her Eliquis. Management per hospitalist. Discharge once stable.
[2019-08-21] MEDS: Fluticasone 0.05% 1 SPRAY NASAL.SRY NASAL ×2 (10:23→22:31)
[2019-08-21] MEDS: Azelastine HCl NASAL.SRY 1 SPRAY NASAL ×2 (10:23→22:31)
--- NOTE | 2019-08-21 10:34 | PCM.PN.HOSP ---
Subjective: Had to be placed on her CPAP at night as she was having an increased oxygen requirement. Also chest x-ray demonstrated some interstitial edema and therefore she was started on IV Lasix, she did receive a dose last night and a dose this morning however her kidney function is tenuous in the past therefore we will decrease her Lasix to just daily for now and monitor closely Vitals/I&O's: Vital Signs Temp Pulse Resp BP Pulse Ox 98.1 F 59 L 18 139/70 H 93 08/21/19 07:41 08/21/19 07:41 08/21/19 07:41 08/21/19 07:41 08/21/19 09:16 Oxygen Flow Rate (L/min) 3 Oxygen Delivery Method Nasal Cannula Weight: 134 lb 0.657 oz Body Mass Index (BMI) 25.3 Intake and Output for Last 24 Hours 08/19/19 08/20/19 08/21/19 23:59 23:59 23:59 Intake Total 2630.0 / 2630.0 1746.25 / 1746.25 50 / 50 Output Total 100 / 100 1100 / 1100 550 / 550 Balance 2530.0 / 2530.0 646.25 / 646.25 -500 / -500 General: Alert, Oriented x3, Cooperative, No apparent distress HEENT: Atraumatic, PERRLA, EOMI, Normocephalic Oral: Moist Mucosa Neck: Supple, No JVD Lungs: Normal air movement, No rhonchi, No wheeze, No rales, - - Very mild crackles Cardiovascular: Regular rate, Regular Rhythm, Normal S1, Normal S2, No murmurs Abdomen: Soft, Non Tender, Non-Distended, No Hepato-splenomegaly Extremities: No edema, Capillary Refill Less than 3 Seconds Skin: No rashes, No breakdown Neurological: Neuro grossly intact, Sensory exam intact to light touch and pain Psych/Mental Status: Normal Affect, Appropriate Current Medications Acetaminophen (Tylenol) 325 mg PO Q4H PRN PRN PRN Reason: Pain Score 1-08/11 Last Admin: 08/21/19 05:54 Dose: 325 mg Documented by: Al Hydroxide/Mg Hydroxide (Mylanta Ii) 30 ml PO Q4H PRN PRN PRN Reason: Heartburn Amiodarone HCl (Cordarone) 200 mg PO DAILY@0800 [facility] Last Admin: 08/21/19 09:02 Dose: 200 mg Documented by: Apixaban (Eliquis) 2.5 mg PO BID [facility] Last Admin: 08/21/19 09:02 Dose: 2.5 mg Documented by: Azelastine HCl (Astelin) 1 spray NASAL BID PRN PRN PRN Reason: RUNNY NOSE Last Admin: 08/21/19 10:23 Dose: 1 spray Documented by: Calcium/Vitamin D (Os-Raymond 500mg + D) 1 tablet PO TIDCM [facility] Last Admin: 08/21/19 09:01 Dose: 1 tablet Documented by: Carvedilol (Coreg) 3.125 mg PO BID [facility] Last Admin: 08/21/19 09:01 Dose: 3.125 mg Documented by: Cholecalciferol (Vitamin D) 2,000 unit PO DAILY [facility] Last Admin: 08/21/19 09:03 Dose: 2,000 unit Documented by: Cyanocobalamin (Vitamin B12) 1,000 mcg PO DAILY [facility] Last Admin: 08/21/19 09:01 Dose: 1,000 mcg Documented by: Cyclobenzaprine HCl (Cyclobenzaprine Hcl) 5 mg PO BID [facility] Last Admin: 08/21/19 09:02 Dose: 5 mg Documented by: Docusate Sodium (Colace) 100 mg PO BID [facility] Last Admin: 08/21/19 09:01 Dose: 100 mg Documented by: Duloxetine HCl (Cymbalta) 20 mg PO QHS [facility] Last Admin: 08/20/19 20:43 Dose: 20 mg Documented by: Fluticasone Propionate (Flonase Nasal [place]) 1 spray NASAL BID PRN PRN PRN Reason: RUNNY NOSE Last Admin: 08/21/19 10:23 Dose: 1 spray Documented by: Furosemide (Lasix) 40 mg IV DAILY [facility] Sodium Chloride () 250 mls @ 15 mls/hr IV .[id number] PRN PRN Reason: Saline Flush Ibuprofen (Motrin) 600 mg PO Q6H PRN PRN PRN Reason: Pain Score 1-10/10 Levothyroxine Sodium (Synthroid) 50 mcg PO DAILY@0600 [facility] Last Admin: 08/21/19 05:54 Dose: 50 mcg Documented by: Memantine (Namenda) 10 mg PO BID [facility] Last Admin: 08/21/19 09:01 Dose: 10 mg Documented by: Nutritional Formula (Lactose Free) (Ensure Enlive) 120 ml PO 4X/DAY [facility] Last Admin: 08/21/19 09:15 Dose: 120 ml Documented by: Oxycodone HCl (Oxyir) 5 mg PO Q4H PRN PRN PRN Reason: Pain Score 1-10/10 Pantoprazole Sodium (Protonix) 40 mg PO DAILY [facility] Last Admin: 08/21/19 09:01 Dose: 40 mg Documented by: Potassium Chloride (K-Dur) 20 meq PO DAILYCM [facility] Last Admin: 08/21/19 09:02 Dose: 20 meq Documented by: Sodium Chloride ([place] Nasal Orange) 1 spray NASAL TID PRN PRN PRN Reason: NASAL DRYNESS Last Admin: 08/20/19 20:03 Dose: 1 spray Documented by: Sodium Chloride () 5 - 15 ml IV UD PRN PRN Reason: SALINE FLUSH Last Admin: 08/21/19 09:09 Dose: 10 ml Documented by: Tramadol HCl (Ultram) 50 mg PO Q6H PRN PRN PRN Reason: Pain Score 4-6 STROKE Vital Signs/Narrative: Vital Signs Temp Pulse Resp BP Pulse Ox 08/21/19 09:16 93 08/21/19 07:41 98.1 F 59 L 18 139/70 H 98 08/21/19 07:23 58 L 18 99 Medical Necessity - Tobacco Use Smoking Status: Never smoker Tobacco Use: Non-smoker Assessment/Plan All Active Problems (Last Reviewed 08/19/19 @ 15:53 by Ortiz Cueva MD) Debility (Acute) Acute on chronic systolic heart failure (Acute) Hypotension (Acute) HFrEF (heart failure with reduced ejection fraction) (Acute) Weakness (Acute) Chronic systolic (congestive) heart failure (Acute) 1. Acute hypoxic respiratory failure of unknown etiology -We will continue with the nasal cannula for now at 3 L and wean as able. -Fluid overload as she received about 2 to 3 L of fluid since she is been here. -Hold IV fluids and continue with IV Lasix 40 mg daily -We will encourage ambulation -Unlikely to be a PE since she is on Eliquis for the last 4 weeks -Chest x-ray with interstitial edema and possible pneumonitis, if there is no improvement in respiratory that is throughout the day will consider placing her back on prednisone which did previously for an episode of alveolitis -No leukocytosis or fever 2. Nephrolithiasis -Status post stent -Management per primary 3. Ischemic cardiomyopathy with chronic systolic CHF/paroxysmal A. fib -She does not appear to be in exacerbation with her CHF, will continue with her home Coreg, aspirin, and amiodarone -Continue with Eliquis -Echo in May 2019, with an EF of 35% and stage II diastolic dysfunction, she does not have edema 4. Dementia/depression/anxiety -Stable -Continue with Cymbalta, memantine 5. Hypothyroidism -TSH now is 1.05 -Continue with her home Synthroid DVT: Eliquis Code Visit Inpatient E&M: 51789 Subs Hosp L2
--- NOTE | 2019-08-21 20:00 | NURSING ---
[place] pt's bathroom light going off so I went to answer it. When I entered room I noticed pt's and daughter were present in the room and the bathroom door was closed. I asked the pt if she was finished and she said she was but that she had fallen. I opened door to find pt sitting on the floor next to the toilet. She said she tried to reach something and just sat down. Vital signs stable and no injuries were observed. apologized for the situation and all the commotion.
--- NOTE | 2019-08-21 21:16 | NURSING ---
pt resting in bed visiting with family. vs recheck wnl. pt denies any pain. bed exit on.
[2019-08-21] MEDS: DULoxetine Hcl 20 MG Capsule PO (22:31)
[2019-08-21] MEDS: Sodium Chloride 0.65% 1 SPRAY SPRAY.BTL NASAL (22:31)
[2019-08-22] VITALS (7 sets, daily range): BP systolic 99–132; BP diastolic 49–83; PULSE 58–86; RESP 16–24; TEMP 36.4–37; O2SAT 91–99
[2019-08-22] MEDS: Levothyroxine 50 MCG Tablet PO (05:00)
[2019-08-22] MEDS: 0.9% Saline Lock 10 ML Syringe IV (05:00)
[2019-08-22 06:17] LABS: Absolute Lymphocyte Count 1.07 X10^3/uL (0.83-4.51); Absolute Neutrophil Count 5.5 X10^3/uL (2.0-7.7); Basophil# 0.05 X10^3/uL; Basophil% 0.6 % (0-1); Eosinophils% 7.5 % (0-5); Hematocrit 35.9 % (37-47); Hemoglobin 11.5 g/dL (12.0-15.0); Lymphocyte # 1.07 X10^3/ul (4.0); Lymphocyte % 13.4 % (19-41); Mean Corpuscular Hgb 32.1 pg (27.0-32.0); Mean Corpuscular Volume 100.3 fL (81-99); Mean Platelet Vol. 11.3 fl (6.2-12.0); Monocyte# 0.72 X10^3/uL; NRBC Flagged by Analyzer 0 % (0-5); Neutrophil % 69.1 % (47-70); Platelet Count 217 K/mm3 (150-450); RBC Distribution Width CV 15.7 % (11.6-14.6); RBC Distribution Width SD 57.7 fl (35.1-43.9); Red Blood Count 3.58 M/mm3 (4.2-5.4)
[2019-08-22 06:32] LABS: Anion Gap 6 (5-15); BUN 17 mg/dL (7-18); BUN/Creat Ratio 13.8 RATIO (10-20); Calcium,Total 8.6 mg/dL (8.5-10.1); Chloride 106 mmol/L (98-107); Creatinine, Serum 1.23 mg/dL (0.55-1.02); EST Glomerular Filtration Rate 44 mL/min (>60); Est Glom Filt Rate - Afr Amer 54 mL/min (>60); Estimated Creatinine Clearance 27.07 ml/min; Glucose 95 mg/dL (74-106); Potassium 3.7 mmol/L (3.5-5.1); Sodium Level 141 mmol/L (136-145)
--- NOTE | 2019-08-22 10:05 | CASEMGMT ---
RN CM Face to Face with patient for initial transition planning/care coordination assessment. RN CM introduced self and role at [facility]. Patient lying in bed, alert and oriented, at bedside. Patient willing to participate in assessment and is able to answer all questions appropriately. Care providers, pharmacy, and demographics verified. Patient wishes to discharge home, denies need for home health at this time. Patient states she has no further needs or concerns at this time. CM to follow for discharge planning needs that may arise. PCP: Vladislav Specialists: Pola, project accountant; Juan Miguel, software verification engineer Preferred Pharmacy: [facility] Retail Insurance: [facility] Prescription Benefit: yes Living Will/HPOA: yes, Dragan Ramirez LNOK: , daughter Living Arrangements: patient lives with in 2 story house with bed and bath on 1st floor. 2 steps and grab bar to enter the home. Patient independent at home with ADLs Transportation: DME/HHC: Patient has cane, grab bars, walker, cpap through [facility]. Patient may need home oxygen at discharge. List of DME provided to . Patient was receiving outpatient therapy at [facility]. Patient has previously been to TCU in the patient and recently discharged from there on 08/10/19. Patient was in PCU on 07/27/19-08/03/19 for CHF and went to TCU on 08/03/19. Patient discharge from TCU and then developed kidney stone and was readmitted on 08/19/19. Patient was given fluids for kidney stone and CHF was exacerbated, now requiring oxygen. Disposition Plan: Patient to discharge home with family support and follow-up plans in place. Will monitor for home oxygen. Dawn MCKINNEY, RN, CM
[2019-08-22] MEDS: Amiodarone 200 MG Tablet PO (11:21)
[2019-08-22] MEDS: Pantoprazole Sodium 40 MG Tablet PO (11:22)
[2019-08-22] MEDS: Cyanocobalamin 500 MCG Tablet 1000 MCG PO (11:22)
[2019-08-22] MEDS: Carvedilol 3.125 MG TABLET PO ×2 (11:23→21:25)
[2019-08-22] MEDS: Docusate Sodium 100 MG Capsule PO ×2 (11:23→21:24)
[2019-08-22] MEDS: Calcium Carb/Vitamin D 1 TABLET Tablet PO ×3 (11:23→16:22)
[2019-08-22] MEDS: Memantine Hydrochloride 10 MG Tablet PO ×2 (11:23→21:26)
[2019-08-22] MEDS: APIXABAN 2.5 MG TABLET PO ×2 (11:25→21:25)
[2019-08-22] MEDS: Fluticasone 0.05% 1 SPRAY NASAL.SRY NASAL (11:26)
[2019-08-22] MEDS: Azelastine HCl NASAL.SRY 1 SPRAY NASAL (11:26)
[2019-08-22 11:41] LABS: BNP,B-Type NATRIURETIC PEPTIDE 860.9 pg/mL (0-100)
--- NOTE | 2019-08-22 12:57 | PCM.CONS.PUL ---
Reason for Consult Date of Consultation: 08/22/19 Reason for Consultation: Acute hypoxemic respiratory insufficiency History of Present Illness: The patient is an 83-year-old female, with a history as outlined below, who presented to the emergency department on August 19 with complaints of abdominal pain. Subsequent work-up revealed evidence of a 7.7 mm stone in the left mid ureter. The patient was subsequently evaluated by Dr. Cueva of urology. She was then taken to the OR on the morning of August 20 where she underwent cystoscopy, left retrograde pyelogram and placement of a stent. The patient does have a known history of combined systolic and diastolic heart failure and did receive perioperative supplemental IV fluids. Preoperatively, the patient was documented to be on room air. Postoperatively, the patient had a new supplemental oxygen requirement. A plain film chest x-ray did reveal upper lobe predominant groundglass changes in bilateral blunting of the costophrenic angles. The patient was subsequently started on Lasix and is currently maintaining appropriate oxygen saturations on 2 L/min. The patient has been afebrile throughout her hospital stay and has no evidence of a leukocytosis. She denies the presence of a cough. The patient was just recently discharged from the hospital on August 03 after having been admitted with acute hypoxemic respiratory failure in the setting of decompensated heart failure. At that time, the patient responded favorably to the use of diuretics. She was able to be discharged home following a stay in the transitional care unit on room air. The patient was apparently doing quite well at home until she developed the abdominal pain noted above. 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) last ECHO with a 35 % EF Secondary pulmonary arterial hypertension (Chronic) Nonrheumatic aortic valve insufficiency (Chronic) Nonrheumatic mitral (valve) insufficiency (Chronic) Non-rheumatic tricuspid valve insufficiency (Chronic) Paroxysmal atrial fibrillation (Chronic) residential (current) use of anticoagulants (Chronic) Medical History: Medical History (Last Reviewed 10/18/19 @ 15:53 by Ortiz Cueva MD) Essential (primary) hypertension (Chronic) I10 History of breast cancer (Chronic) Z85.3 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) I43 last ECHO with a 35 % EF Secondary pulmonary arterial hypertension (Chronic) I27.21 Nonrheumatic aortic valve insufficiency (Chronic) I35.1 Nonrheumatic mitral (valve) insufficiency (Chronic) I34.0 Non-rheumatic tricuspid valve insufficiency (Chronic) I36.1 Paroxysmal atrial fibrillation (Chronic) I48.0 Chronic systolic (congestive) heart failure (Acute) I50.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) Z79.01 Hypothyroidism E03.9 Anxiety and depression F41.9, F32.9 Dementia F03.90 Expressive aphasia R47.01 Joint pain M25.50 Breast cancer C50.919 Allergies Penicillins [PCN] Allergy (Verified 07/27/19 18:16) Rash Home Medications: Ambulatory Orders Medication Instructions Recorded Amiodarone HCl [Cordarone] 200 mg PO DAILY 10/06/18 Dymista 1 puff NASAL BID PRN PRN 10/06/18 Cyanocobalamin (Vitamin B-12) 1,000 mcg PO DAILY 11/02/18 [B-12] cyclobenzaprine 5 mg tablet 5 mg PO BID tab 05/30/19 duloxetine 20 mg capsule,delayed 20 mg PO QHS cap 05/30/19 release Apixaban [Eliquis] 2.5 mg PO BID 08/03/19 Carvedilol [Coreg (Beta Kori)] 3.125 mg PO BID 08/03/19 Furosemide [Lasix] 20 mg PO QODAY 08/03/19 Sodium Chloride 0.65% [[place] Nasal 1 spray NASAL TID PRN PRN 08/10/19 [place]] spray.btl traMADol [Ultram] 50 mg PO Q6H PRN PRN tab 08/10/19 Acetaminophen [Tylenol Arthritis] 1,300 mg PO DAILY PRN PRN 08/19/19 Calcium Citrate/Vitamin D3 1 tab PO TID 08/19/19 [Calcium Cit 315-Vit D3 200 Tab] Cholecalciferol (Vitamin D3) 2,000 unit PO DAILY 08/19/19 [D3-2000] Levothyroxine Sodium [Levoxyl] 50 mcg PO DAILY 08/19/19 Memantine Hydrochloride [Namenda] 10 mg PO BID 08/19/19 Ciprofloxacin [Cipro] 250 mg PO BID #6 tab 08/20/19 traMADol [Ultram (G)] 50 mg PO Q4H PRN PRN 5 Days #14 tab 08/20/19 Psyllium [Metamucil] 1 packet PO DAILY 08/22/19 Surgical History: Surgical History (Last Reviewed 08/19/19 @ 15:53 by Ortiz Cueva MD) H/O right mastectomy Z90.11 Surgical History: appendectomy, cataract, mastectomy - Right., - - Lumpectomy, tubal ligation, right breast mass biopsy. 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 Smoking Status: Never smoker Tobacco Use: Non-smoker - *Family History Maternal Family History: Family History (Last Reviewed 08/19/19 @ 15:53 by Ortiz Cueva MD) Grandmother Diabetes History Items: No pertinent history Paternal Family History: Family History (Last Reviewed 08/19/19 @ 15:53 by Ortiz Cueva MD) Grandmother Diabetes History Items: No pertinent history Review of Systems Constitutional: Denies: Chills, Fever Eyes: Denies: Blurred vision, Double vision HEENT: Denies: Head Aches, Sinus Congestion, Sinus Drainage Cardiovascular: Denies: Chest Pain, Palpitations Respiratory: Denies: Cough, Shortness of breath at rest, Sputum production Gastrointestinal: Reports: Abdominal Pain Genitourinary: Denies: Dysuria Musculoskeletal: Reports: Back Pain. Denies: Joint Pain, Joint Tenderness Skin: Denies: Rash, Wounds Neurological: Denies: Numbness, Tingling, Focal weakness Psychiatric: Denies: Anxiety, Depression, Homicidal Ideations, Suicidal Ideations Hematologic/ Lymphatic: Reports: Anemia Objective: The patient's most recent lab work, culture data and imaging studies have all been personally reviewed. - Physical Exam Vitals/I&O's: Vital Signs Temp Pulse Resp BP Pulse Ox 98.6 F 62 16 99/49 L 91 08/22/19 11:41 08/22/19 11:41 08/22/19 11:41 08/22/19 11:41 08/22/19 11:41 Oxygen Flow Rate (L/min) 2 Oxygen Delivery Method Nasal Cannula Weight: 134 lb 0.657 oz Body Mass Index (BMI) 25.3 Intake and Output for Last 24 Hours 08/20/19 08/21/19 08/22/19 23:59 23:59 23:59 Intake Total 1746.25 / 1746.25 650 / 650 200 / 200 Output Total 1100 / 1100 1650 / 1650 400 / 400 Balance 646.25 / 646.25 -1000 / -1000 -200 / -200 General: Alert, Cooperative, No apparent distress HEENT: Atraumatic, PERRLA, Normocephalic Oral: No Gingival or Mucosal Lesions/ Ulcerations Neck: Supple, No Nodes, Trachea Midline Lungs: No rhonchi, No wheeze, Rales Cardiovascular: Regular rate, Regular Rhythm, Normal S1, Normal S2, No murmurs Abdomen: Bowel Sounds Present, Soft, Non Tender Extremities: No clubbing, No cyanosis, No edema Skin: No breakdown Musculoskeletal: No Tenderness to Palpation of Joints or Extremities Lymphatic: No Cervical, Supraclavicular, or Inguinal Adenopathy Neurological: Cranial nerves II-XII grossly intact, Neuro grossly intact Psych/Mental Status: Normal Affect, Appropriate Microbiology Past 72 Hours 08/20/19 Unknown Urine, Catheterized Urine Culture - Final Culture exhibits no growth. Laboratory Results 08/22/19 05:50: WBC 8.0, RBC 3.58 L, Hgb 11.5 L, Hct 35.9 L, MCV 100.3 H, MCH 32.1 H, MCHC 32.0, RDW Std Deviation 57.7 H, RDW Coeff of Silvano 15.7 H, Plt Count 217, MPV 11.3, Immature Gran % (Auto) 0.400, Neut % (Auto) 69.1, Lymph % (Auto) 13.4 L, [place] % (Auto) 9.0, Eos % (Auto) 7.5 H, Baso % (Auto) 0.6, Absolute Neuts (auto) 5.5, Absolute Lymphs (auto) 1.07, Nucleated RBC % 0 08/22/19 05:50: Sodium 141, Potassium 3.7, Chloride 106, Carbon Dioxide 29.0, Anion Gap 6, BUN 17, Creatinine 1.23 H, Estim Creat Clear Calc 27.07, Est GFR (MDRD) Af Amer 54 L, Est GFR (MDRD) Non-Af 44 L, BUN/Creatinine Ratio 13.8, Glucose 95, Calcium 8.6 08/22/19 05:50: B-Natriuretic Peptide 860.9 H Current Medications Acetaminophen (Tylenol) 325 mg PO Q4H PRN PRN PRN Reason: Pain Score 1-1010 Last Admin: 08/21/19 22:31 Dose: 325 mg Documented by: Al Hydroxide/Mg Hydroxide (Mylanta Ii) 30 ml PO Q4H PRN PRN PRN Reason: Heartburn Amiodarone HCl (Cordarone) 200 mg PO DAILY@0800 [facility] Last Admin: 08/22/19 11:21 Dose: 200 mg Documented by: Apixaban (Eliquis) 2.5 mg PO BID [facility] Last Admin: 08/22/19 11:25 Dose: 2.5 mg Documented by: Azelastine HCl (Astelin) 1 spray NASAL BID PRN PRN PRN Reason: RUNNY NOSE Last Admin: 08/22/19 11:26 Dose: 1 spray Documented by: Calcium/Vitamin D (Os-Raymond 500mg + D) 1 tablet PO TIDCM [facility] Last Admin: 08/22/19 11:28 Dose: 1 tablet Documented by: Carvedilol (Coreg) 3.125 mg PO BID [facility] Last Admin: 08/22/19 11:23 Dose: 3.125 mg Documented by: Cholecalciferol (Vitamin D) 2,000 unit PO DAILY [facility] Last Admin: 08/22/19 11:22 Dose: 2,000 unit Documented by: Cyanocobalamin (Vitamin B12) 1,000 mcg PO DAILY [facility] Last Admin: 08/22/19 11:22 Dose: 1,000 mcg Documented by: Cyclobenzaprine HCl (Cyclobenzaprine Hcl) 5 mg PO BID [facility] Last Admin: 08/21/19 22:30 Dose: 5 mg Documented by: Docusate Sodium (Colace) 100 mg PO BID [facility] Last Admin: 08/22/19 11:23 Dose: 100 mg Documented by: Duloxetine HCl (Cymbalta) 20 mg PO QHS [facility] Last Admin: 08/21/19 22:31 Dose: 20 mg Documented by: Fluticasone Propionate (Flonase Nasal [place]) 1 spray NASAL BID PRN PRN PRN Reason: RUNNY NOSE Last Admin: 08/22/19 11:26 Dose: 1 spray Documented by: Furosemide (Lasix) 40 mg IV BID@1000,1800 [facility] Sodium Chloride () 250 mls @ 15 mls/hr IV .[id number] PRN PRN Reason: Saline Flush Ibuprofen (Motrin) 600 mg PO Q6H PRN PRN PRN Reason: Pain Score 1-10/10 Levothyroxine Sodium (Synthroid) 50 mcg PO DAILY@0600 [facility] Last Admin: 08/22/19 05:00 Dose: 50 mcg Documented by: Memantine (Namenda) 10 mg PO BID [facility] Last Admin: 08/22/19 11:23 Dose: 10 mg Documented by: Nutritional Formula (Lactose Free) (Ensure Enlive) 120 ml PO 4X/DAY [facility] Last Admin: 08/22/19 11:27 Dose: Not Given Documented by: Oxycodone HCl (Oxyir) 5 mg PO Q4H PRN PRN PRN Reason: Pain Score 1-10/10 Pantoprazole Sodium (Protonix) 40 mg PO DAILY [facility] Last Admin: 08/22/19 11:22 Dose: 40 mg Documented by: Potassium Chloride (K-Dur) 20 meq PO DAILYCM [facility] Last Admin: 08/22/19 11:21 Dose: 20 meq Documented by: Sodium Chloride ([place] Nasal [place]) 1 spray NASAL TID PRN PRN PRN Reason: NASAL DRYNESS Last Admin: 08/21/19 22:31 Dose: 1 spray Documented by: Sodium Chloride () 5 - 15 ml IV UD PRN PRN Reason: SALINE FLUSH Last Admin: 08/22/19 05:00 Dose: 10 ml Documented by: Tramadol HCl (Ultram) 50 mg PO Q6H PRN PRN PRN Reason: Pain Score 4-6 Assessment/Plan All Active Problems (Last Reviewed 08/19/19 @ 15:53 by Ortiz Cueva MD) Debility (Acute) Acute on chronic systolic heart failure (Acute) Hypotension (Acute) HFrEF (heart failure with reduced ejection fraction) (Acute) Weakness (Acute) Chronic systolic (congestive) heart failure (Acute) RECOMMENDATIONS: 1. Continue attempts at volume optimization with IV diuretics as tolerated by hemodynamics. 2. Wean supplemental oxygen to maintain saturations at or above 90%. 3. Encourage incentive spirometer use and mobilize patient as tolerated. 4. Continue nocturnal Pap therapy. IMPRESSIONS: 1. Acute hypoxemic respiratory insufficiency Suspect related to decompensated heart failure. The patient's presentation is quite similar to that of her previous hospitalizations. The patient has always responded to IV diuretic therapy. I would recommend continuing to diurese the patient as tolerated by hemodynamics. Low clinical index of suspicion for underlying pulmonary infectious process given lack of symptoms, fever or white count. While an underlying inflammatory condition or granulomatosis lung disease would also be a possibility, the patient was asymptomatic from a respiratory perspective until supplemental IV fluids were administered. Therefore, I do feel that it is reasonable to proceed with diuresis at this time. 2. Nephrolithiasis status post stent placement Management per urology recommendations. 3. Personal history of sleep apnea Currently under the care of Dr. Torres. Continue nocturnal Pap therapy per outpatient regimen. 4. Advanced age and deconditioning/paroxysmal atrial fibrillation/hypothyroidism/depression/dementia/hypertension Complicates care, management, recovery and prognosis. Continue home medications as indicated. This note was generated with [employer] dictation software. It may contain incorrect words, spelling, and punctuation that were not noted in checking the note before signing. Code Visit Inpatient E&M: 36370 Init Hosp L3
--- NOTE | 2019-08-22 13:46 | PN_ITS ---
Subjective: CC follow-up acute hypoxic respiratory failure Patient is an 83-year-old lady who underwent Cystoscopy, left retrograde pyelogram, interpretation fluoroscopic images, manipulation of stone, placement of the stent left side on account of Left obstructing mid ureteral calculi; the hospitalist service was consulted for management of patient medical comorbidities Objective: GENERAL: cooperative HEENT: Atraumatic; EYES; Anicteric, NECK; supple, normal thyroid, RESPIRATORY: Diminished to auscultation CARDIOVASCULAR: Irregular S1 S2, GI: soft, non-tender, normoactive bowel sounds, : No Renal angle tenderness; EXTREMITIES: No edema, no clubbing, MUSCULOSKELETAL: No Joint Tenderness; NEURO: Awake; no lateralizing signs. SKIN: No Rash PSYCH; flat affect Vitals/I&O's: Vital Signs Temp Pulse Resp BP Pulse Ox 98.6 F 62 16 99/49 L 91 08/22/19 11:41 08/22/19 11:41 08/22/19 11:41 08/22/19 11:41 08/22/19 11:41 Oxygen Flow Rate (L/min) 2 Oxygen Delivery Method Nasal Cannula Weight: 60.8 kg Body Mass Index (BMI) 25.3 Intake and Output for Last 24 Hours 08/20/19 08/21/19 08/22/19 23:59 23:59 23:59 Intake Total 1746.25 / 1746.25 650 / 650 200 / 200 Output Total 1100 / 1100 1650 / 1650 400 / 400 Balance 646.25 / 646.25 -1000 / -1000 -200 / -200 Microbiology Past 72 Hours 08/20/19 Unknown Urine, Catheterized Urine Culture - Final Culture exhibits no growth. Laboratory Results 08/22/19 05:50: WBC 8.0, RBC 3.58 L, Hgb 11.5 L, Hct 35.9 L, MCV 100.3 H, MCH 32.1 H, MCHC 32.0, RDW Std Deviation 57.7 H, RDW Coeff of Silvano 15.7 H, Plt Count 217, MPV 11.3, Immature Gran % (Auto) 0.400, Neut % (Auto) 69.1, Lymph % (Auto) 13.4 L, Butts % (Auto) 9.0, Eos % (Auto) 7.5 H, Baso % (Auto) 0.6, Absolute Neuts (auto) 5.5, Absolute Lymphs (auto) 1.07, Nucleated RBC % 0 08/22/19 05:50: Sodium 141, Potassium 3.7, Chloride 106, Carbon Dioxide 29.0, Anion Gap 6, BUN 17, Creatinine 1.23 H, Estim Creat Clear Calc 27.07, Est GFR (MDRD) Af Amer 54 L, Est GFR (MDRD) Non-Af 44 L, BUN/Creatinine Ratio 13.8, Glucose 95, Calcium 8.6 08/22/19 05:50: B-Natriuretic Peptide 860.9 H Current Medications Acetaminophen (Tylenol) 325 mg PO Q4H PRN PRN PRN Reason: Pain Score 1-08/11 Last Admin: 08/21/19 22:31 Dose: 325 mg Documented by: Al Hydroxide/Mg Hydroxide (Mylanta Ii) 30 ml PO Q4H PRN PRN PRN Reason: Heartburn Amiodarone HCl (Cordarone) 200 mg PO DAILY@0800 COUNTS INCLUDE 234 BEDS AT THE [facility] Last Admin: 08/22/19 11:21 Dose: 200 mg Documented by: Apixaban (Eliquis) 2.5 mg PO BID COUNTS INCLUDE 234 BEDS AT THE [facility] Last Admin: 08/22/19 11:25 Dose: 2.5 mg Documented by: Azelastine HCl (Astelin) 1 spray NASAL BID PRN PRN PRN Reason: RUNNY NOSE Last Admin: 08/22/19 11:26 Dose: 1 spray Documented by: Calcium/Vitamin D (Os-Raymond 500mg + D) 1 tablet PO TIDCM COUNTS INCLUDE 234 BEDS AT THE [facility] Last Admin: 08/22/19 11:28 Dose: 1 tablet Documented by: Carvedilol (Coreg) 3.125 mg PO BID COUNTS INCLUDE 234 BEDS AT THE [facility] Last Admin: 08/22/19 11:23 Dose: 3.125 mg Documented by: Cholecalciferol (Vitamin D) 2,000 unit PO DAILY COUNTS INCLUDE 234 BEDS AT THE [facility] Last Admin: 08/22/19 11:22 Dose: 2,000 unit Documented by: Cyanocobalamin (Vitamin B12) 1,000 mcg PO DAILY COUNTS INCLUDE 234 BEDS AT THE [facility] Last Admin: 08/22/19 11:22 Dose: 1,000 mcg Documented by: Cyclobenzaprine HCl (Cyclobenzaprine Hcl) 5 mg PO BID COUNTS INCLUDE 234 BEDS AT THE [facility] Last Admin: 08/21/19 22:30 Dose: 5 mg Documented by: Docusate Sodium (Colace) 100 mg PO BID COUNTS INCLUDE 234 BEDS AT THE [facility] Last Admin: 08/22/19 11:23 Dose: 100 mg Documented by: Duloxetine HCl (Cymbalta) 20 mg PO QHS COUNTS INCLUDE 234 BEDS AT THE [facility] Last Admin: 08/21/19 22:31 Dose: 20 mg Documented by: Fluticasone Propionate (Flonase Nasal [place]) 1 spray NASAL BID PRN PRN PRN Reason: RUNNY NOSE Last Admin: 08/22/19 11:26 Dose: 1 spray Documented by: Furosemide (Lasix) 40 mg IV DAILY COUNTS INCLUDE 234 BEDS AT THE [facility] Sodium Chloride () 250 mls @ 15 mls/hr IV .[id number] PRN PRN Reason: Saline Flush Ibuprofen (Motrin) 600 mg PO Q6H PRN PRN PRN Reason: Pain Score 1-10/10 Levothyroxine Sodium (Synthroid) 50 mcg PO DAILY@0600 COUNTS INCLUDE 234 BEDS AT THE [facility] Last Admin: 08/22/19 05:00 Dose: 50 mcg Documented by: Memantine (Namenda) 10 mg PO BID COUNTS INCLUDE 234 BEDS AT THE [facility] Last Admin: 08/22/19 11:23 Dose: 10 mg Documented by: Nutritional Formula (Lactose Free) (Ensure Enlive) 120 ml PO 4X/DAY COUNTS INCLUDE 234 BEDS AT THE [facility] Last Admin: 08/22/19 11:27 Dose: Not Given Documented by: Oxycodone HCl (Oxyir) 5 mg PO Q4H PRN PRN PRN Reason: Pain Score 1-10/10 Pantoprazole Sodium (Protonix) 40 mg PO DAILY COUNTS INCLUDE 234 BEDS AT THE [facility] Last Admin: 08/22/19 11:22 Dose: 40 mg Documented by: Potassium Chloride (K-Dur) 20 meq PO DAILYCM COUNTS INCLUDE 234 BEDS AT THE [facility] Last Admin: 08/22/19 11:21 Dose: 20 meq Documented by: Sodium Chloride ([place] Nasal [place]) 1 spray NASAL TID PRN PRN PRN Reason: NASAL DRYNESS Last Admin: 08/21/19 22:31 Dose: 1 spray Documented by: Sodium Chloride () 5 - 15 ml IV UD PRN PRN Reason: SALINE FLUSH Last Admin: 08/22/19 05:00 Dose: 10 ml Documented by: Tramadol HCl (Ultram) 50 mg PO Q6H PRN PRN PRN Reason: Pain Score 4-6 STROKE Vital Signs/Narrative: Vital Signs Temp Pulse Resp BP Pulse Ox 08/22/19 11:41 98.6 F 62 16 99/49 L 91 Medical Necessity - Tobacco Use Smoking Status: Never smoker Tobacco Use: Non-smoker Assessment/Plan All Active Problems (Last Reviewed 08/19/19 @ 15:53 by Ortiz Cueva MD) Debility (Acute) Acute on chronic systolic heart failure (Acute) Hypotension (Acute) HFrEF (heart failure with reduced ejection fraction) (Acute) Weakness (Acute) Chronic systolic (congestive) heart failure (Acute) Patient is an 83-year-old lady who underwent Cystoscopy, left retrograde pyelogram, interpretation fluoroscopic images, manipulation of stone, placement of the stent left side on account of Left obstructing mid ureteral calculi; the hospitalist service was consulted for management of patient medical comorbidities 1. Status post Cystoscopy, left retrograde pyelogram, interpretation fluoroscopic images, manipulation of stone, placement of the stent left side on account of Left obstructing mid ureteral calculi on 08/20/2019. Subsequent management deferred to urology 2. Acute hypoxic respiratory failure ~Suspected to be secondary to fluid overload. Patient is known to have ischemic cardiomyopathy with an ejection fraction of 35%. Patient was placed on IV Lasix and supplemental oxygen titrated to keep saturation greater than 90. Consult was placed to pulmonary medicine per request from patient's family 3. Obstructive sleep apnea ~ on CPAP at HS 4. Hypothyroidism ~patient is on levothyroxine home dose continued 5. Paroxysmal fibrillation ~ rate controlled on amiodarone and on systemic anticoagulation with Eliquis 6. Depression with anxiety ~patient is on duloxetine 7. GERD ? On PPI 8. DVT prophylaxis ~ on Eliquis Advance planning; did discuss with the patient and family regarding advanced directives as well as CODE STATUS. Did explain the various scenarios involved ( FULL CODE, DNR CCA, DNR CCA with no intubation, and DNR CC and what each meant). Plan is for patient to remain full code. Order was placed. Time spent on discussion 18 minutes. Active Medications Acetaminophen (Tylenol) 325 mg PO Q4H PRN PRN PRN Reason: Pain Score 1-10/10 Last Admin: 08/21/19 22:31 Dose: 325 mg Documented by: Al Hydroxide/Mg Hydroxide (Mylanta Ii) 30 ml PO Q4H PRN PRN PRN Reason: Heartburn Amiodarone HCl (Cordarone) 200 mg PO DAILY@0800 COUNTS INCLUDE 234 BEDS AT THE [facility] Last Admin: 08/22/19 11:21 Dose: 200 mg Documented by: Apixaban (Eliquis) 2.5 mg PO BID COUNTS INCLUDE 234 BEDS AT THE [facility] Last Admin: 08/22/19 11:25 Dose: 2.5 mg Documented by: Azelastine HCl (Astelin) 1 spray NASAL BID PRN PRN PRN Reason: RUNNY NOSE Last Admin: 08/22/19 11:26 Dose: 1 spray Documented by: Calcium/Vitamin D (Os-Raymond 500mg + D) 1 tablet PO TIDCM COUNTS INCLUDE 234 BEDS AT THE [facility] Last Admin: 08/22/19 11:28 Dose: 1 tablet Documented by: Carvedilol (Coreg) 3.125 mg PO BID COUNTS INCLUDE 234 BEDS AT THE [facility] Last Admin: 08/22/19 11:23 Dose: 3.125 mg Documented by: Cholecalciferol (Vitamin D) 2,000 unit PO DAILY COUNTS INCLUDE 234 BEDS AT THE [facility] Last Admin: 08/22/19 11:22 Dose: 2,000 unit Documented by: Cyanocobalamin (Vitamin B12) 1,000 mcg PO DAILY COUNTS INCLUDE 234 BEDS AT THE [facility] Last Admin: 08/22/19 11:22 Dose: 1,000 mcg Documented by: Cyclobenzaprine HCl (Cyclobenzaprine Hcl) 5 mg PO BID COUNTS INCLUDE 234 BEDS AT THE [facility] Last Admin: 08/21/19 22:30 Dose: 5 mg Documented by: Docusate Sodium (Colace) 100 mg PO BID COUNTS INCLUDE 234 BEDS AT THE [facility] Last Admin: 08/22/19 11:23 Dose: 100 mg Documented by: Duloxetine HCl (Cymbalta) 20 mg PO QHS COUNTS INCLUDE 234 BEDS AT THE [facility] Last Admin: 08/21/19 22:31 Dose: 20 mg Documented by: Fluticasone Propionate (Flonase Nasal [place]) 1 spray NASAL BID PRN PRN PRN Reason: RUNNY NOSE Last Admin: 08/22/19 11:26 Dose: 1 spray Documented by: Furosemide (Lasix) 40 mg IV DAILY COUNTS INCLUDE 234 BEDS AT THE [facility] Sodium Chloride () 250 mls @ 15 mls/hr IV .[id number] PRN PRN Reason: Saline Flush Ibuprofen (Motrin) 600 mg PO Q6H PRN PRN PRN Reason: Pain Score 1-10/10 Levothyroxine Sodium (Synthroid) 50 mcg PO DAILY@0600 COUNTS INCLUDE 234 BEDS AT THE [facility] Last Admin: 08/22/19 05:00 Dose: 50 mcg Documented by: Memantine (Namenda) 10 mg PO BID COUNTS INCLUDE 234 BEDS AT THE [facility] Last Admin: 08/22/19 11:23 Dose: 10 mg Documented by: Nutritional Formula (Lactose Free) (Ensure Enlive) 120 ml PO 4X/DAY COUNTS INCLUDE 234 BEDS AT THE [facility] Last Admin: 08/22/19 11:27 Dose: Not Given Documented by: Oxycodone HCl (Oxyir) 5 mg PO Q4H PRN PRN PRN Reason: Pain Score 1-10/10 Pantoprazole Sodium (Protonix) 40 mg PO DAILY COUNTS INCLUDE 234 BEDS AT THE [facility] Last Admin: 08/22/19 11:22 Dose: 40 mg Documented by: Potassium Chloride (K-Dur) 20 meq PO DAILYCM COUNTS INCLUDE 234 BEDS AT THE [facility] Last Admin: 08/22/19 11:21 Dose: 20 meq Documented by: Sodium Chloride (Slayden Nasal [place]) 1 spray NASAL TID PRN PRN PRN Reason: NASAL DRYNESS Last Admin: 08/21/19 22:31 Dose: 1 spray Documented by: Sodium Chloride () 5 - 15 ml IV UD PRN PRN Reason: SALINE FLUSH Last Admin: 08/22/19 05:00 Dose: 10 ml Documented by: Tramadol HCl (Ultram) 50 mg PO Q6H PRN PRN PRN Reason: Pain Score 4-6 Clinical Impression(s) from Imaging Studies Abdomen/Pelvis CT 08/19/19 12:04 IMPRESSION: 7.7 mm calculus in the midportion of the left ureter with the left hydronephrosis and hydroureter. Electronically Signed: Shivam Raymond, at 13:57 EDT , Service support , Chest X-Ray 08/20/19 18:45 IMPRESSION: Acute groundglass opacities bilateral upper lungs. Suspicious for cardiogenic pulmonary edema given the cardiomegaly. Pneumonia, noninfectious pneumonitis also possible. Suspect small pleural effusions. Underlying mild chronic interstitial lung disease. Electronically Signed: Donato Figueroa, at 19:58 EDT Tel , Service support , Code Visit Inpatient E&M: 19181 Subs Hosp L2 Procedures: 42222 Advncd Care Plan 30 Min
--- NOTE | 2019-08-22 15:09 | CASEMGMT ---
Social Work Note SW reviewed chart and pt doesn't have LW but pt does have HCPOA and HCPOA is on pt's chart. Dawn Escalante PIPE WASHER, [employer]CHER
[2019-08-22] MEDS: cycloBENZAPRine HCl 5 MG TABLET PO ×2 (16:20→21:25)
[2019-08-22] MEDS: DULoxetine Hcl 20 MG Capsule PO (21:26)
[2019-08-22] MEDS: Sodium Chloride 0.65% 1 SPRAY SPRAY.BTL NASAL (22:35)
[2019-08-22] MEDS: Acetaminophen 325 MG Tablet PO (22:38)
[2019-08-23] VITALS (7 sets, daily range): BP systolic 109–130; BP diastolic 59–93; PULSE 60–82; RESP 16–19; TEMP 36.3–37.1; O2SAT 93–95
[2019-08-23] MEDS: Levothyroxine 50 MCG Tablet PO (05:17)
--- NOTE | 2019-08-23 06:41 | PN_ITS ---
Subjective: The patient was seen and examined at the bedside this morning. Events from the last 24 hours have been reviewed. The patient is currently afebrile, hemodynamically stable and maintaining appropriate oxygen saturations on 2 L/min via nasal cannula. The patient is currently documented to be overall net +1.7 L for the admission. However, the patient's I's and O's are inaccurate due to a lack of Gastelum catheter and incontinent urine. The patient is currently on scheduled once daily IV 40 mg Lasix. The patient was tolerant of CPAP overnight. She reported to me this morning that she perceives that her breathing is somewhat better than it was yesterday. She denies the presence of a cough. Objective: The patient's most recent lab work, culture data and imaging studies have all been personally reviewed. - Physical Exam Vitals/I&O's: Vital Signs Temp Pulse Resp BP Pulse Ox 97.3 F L 63 16 115/62 95 08/23/19 03:13 08/23/19 03:13 08/23/19 03:13 08/23/19 03:13 08/23/19 03:30 Oxygen Flow Rate (L/min) 2 Oxygen Delivery Method Nasal Cannula Weight: 134 lb 0.657 oz Body Mass Index (BMI) 25.3 Intake and Output for Last 24 Hours 08/21/19 08/22/19 08/23/19 23:59 23:59 23:59 Intake Total 650 / 650 200 / 440 300 / 300 Output Total 1650 / 1650 400 / 650 550 / 550 Balance -1000 / -1000 -200 / -210 -250 / -250 General: Alert, Cooperative, No apparent distress HEENT: Atraumatic, PERRLA, Normocephalic Oral: No Gingival or Mucosal Lesions/ Ulcerations Neck: Supple, No Nodes, Trachea Midline Lungs: No rhonchi, No wheeze, Rales Cardiovascular: Normal S1, Normal S2, No murmurs, Irregular Rate Abdomen: Bowel Sounds Present, Soft, Non Tender Extremities: No clubbing, No cyanosis, No edema Skin: No breakdown Musculoskeletal: No Tenderness to Palpation of Joints or Extremities Lymphatic: No Cervical, Supraclavicular, or Inguinal Adenopathy Neurological: - - No focal neurological deficits. Psych/Mental Status: Normal Affect, Appropriate Microbiology Past 72 Hours 08/20/19 Unknown Urine, Catheterized Urine Culture - Final Culture exhibits no growth. Laboratory Results 08/22/19 05:50: B-Natriuretic Peptide 860.9 H Labs (Last 48 Hours) 08/22/19 08/22/19 08/22/19 05:50 05:50 05:50 WBC 8.0 RBC 3.58 L Hgb 11.5 L Hct 35.9 L MCV 100.3 H MCH 32.1 H MCHC 32.0 RDW Std Deviation 57.7 H RDW Coeff of Silvano 15.7 H Plt Count 217 MPV 11.3 Immature Gran % (Auto) 0.400 Neut % (Auto) 69.1 Lymph % (Auto) 13.4 L [place] % (Auto) 9.0 Eos % (Auto) 7.5 H Baso % (Auto) 0.6 Absolute Neuts (auto) 5.5 Absolute Lymphs (auto) 1.07 Nucleated RBC % 0 Sodium 141 Potassium 3.7 Chloride 106 Carbon Dioxide 29.0 Anion Gap 6 BUN 17 Creatinine 1.23 H Estim Creat Clear Calc 27.07 Est GFR (MDRD) Af Amer 54 L Est GFR (MDRD) Non-Af 44 L BUN/Creatinine Ratio 13.8 Glucose 95 Calcium 8.6 B-Natriuretic Peptide 860.9 H Microbiology 08/20/19 Unknown Urine, Catheterized Urine Culture - Final Culture exhibits no growth. Current Medications Acetaminophen (Tylenol) 325 mg PO Q4H PRN PRN PRN Reason: Pain Score 1-10/10 Last Admin: 08/22/19 22:38 Dose: 325 mg Documented by: Al Hydroxide/Mg Hydroxide (Mylanta Ii) 30 ml PO Q4H PRN PRN PRN Reason: Heartburn Amiodarone HCl (Cordarone) 200 mg PO DAILY@0800 [facility] Last Admin: 08/22/19 11:21 Dose: 200 mg Documented by: Apixaban (Eliquis) 2.5 mg PO BID [facility] Last Admin: 08/22/19 21:25 Dose: 2.5 mg Documented by: Azelastine HCl (Astelin) 1 spray NASAL BID PRN PRN PRN Reason: RUNNY NOSE Last Admin: 08/22/19 11:26 Dose: 1 spray Documented by: Calcium/Vitamin D (Os-Raymond 500mg + D) 1 tablet PO TIDCM [facility] Last Admin: 08/22/19 16:22 Dose: 1 tablet Documented by: Carvedilol (Coreg) 3.125 mg PO BID [facility] Last Admin: 08/22/19 21:25 Dose: 3.125 mg Documented by: Cholecalciferol (Vitamin D) 2,000 unit PO DAILY [facility] Last Admin: 08/22/19 11:22 Dose: 2,000 unit Documented by: Cyanocobalamin (Vitamin B12) 1,000 mcg PO DAILY [facility] Last Admin: 08/22/19 11:22 Dose: 1,000 mcg Documented by: Cyclobenzaprine HCl (Cyclobenzaprine Hcl) 5 mg PO BID [facility] Last Admin: 08/22/19 21:25 Dose: 5 mg Documented by: Docusate Sodium (Colace) 100 mg PO BID [facility] Last Admin: 08/22/19 21:24 Dose: 100 mg Documented by: Duloxetine HCl (Cymbalta) 20 mg PO QHS [facility] Last Admin: 08/22/19 21:26 Dose: 20 mg Documented by: Fluticasone Propionate (Flonase Nasal [place]) 1 spray NASAL BID PRN PRN PRN Reason: RUNNY NOSE Last Admin: 08/22/19 11:26 Dose: 1 spray Documented by: Furosemide (Lasix) 40 mg IV DAILY [facility] Sodium Chloride () 250 mls @ 15 mls/hr IV .[id number] PRN PRN Reason: Saline Flush Ibuprofen (Motrin) 600 mg PO Q6H PRN PRN PRN Reason: Pain Score 1-10/10 Levothyroxine Sodium (Synthroid) 50 mcg PO DAILY@0600 [facility] Last Admin: 08/23/19 05:17 Dose: 50 mcg Documented by: Memantine (Namenda) 10 mg PO BID [facility] Last Admin: 08/22/19 21:26 Dose: 10 mg Documented by: Nutritional Formula (Lactose Free) (Ensure Enlive) 120 ml PO 4X/DAY [facility] Last Admin: 08/22/19 21:27 Dose: 120 ml Documented by: Oxycodone HCl (Oxyir) 5 mg PO Q4H PRN PRN PRN Reason: Pain Score 1-10/10 Pantoprazole Sodium (Protonix) 40 mg PO DAILY [facility] Last Admin: 08/22/19 11:22 Dose: 40 mg Documented by: Potassium [facility] ([facility]) [facility] Last Admin: 08/22/19 11:21 Dose: 20 meq Documented by: Sodium Chloride ([place] Nasal [place]) 1 spray NASAL TID PRN PRN PRN Reason: NASAL DRYNESS Last Admin: 08/22/19 22:35 Dose: 1 spray Documented by: Sodium Chloride () 5 - 15 ml IV UD PRN PRN Reason: SALINE FLUSH Last Admin: 08/22/19 05:00 Dose: 10 ml Documented by: Tramadol HCl (Ultram) 50 mg PO Q6H PRN PRN PRN Reason: Pain Score 4-6 Medical Necessity - Tobacco Use Smoking Status: Never smoker Tobacco Use: Non-smoker Assessment/Plan All Active Problems (Last Reviewed 08/19/19 @ 15:53 by Ortiz Cueva MD) Debility (Acute) Acute on chronic systolic heart failure (Acute) Hypotension (Acute) HFrEF (heart failure with reduced ejection fraction) (Acute) Weakness (Acute) Chronic systolic (congestive) heart failure (Acute) RECOMMENDATIONS: 1. Continue attempts at volume optimization with IV diuretics as tolerated by hemodynamics. Consider dosing IV Lasix twice today, if feasible. 2. Wean supplemental oxygen to maintain saturations at or above 90%. 3. Encourage incentive spirometer use and mobilize patient as tolerated. 4. Continue nocturnal Pap therapy. IMPRESSIONS: 1. Acute hypoxemic respiratory insufficiency Suspect related to decompensated heart failure. The patient's presentation is quite similar to that of her previous hospitalizations. The patient has always responded to IV diuretic therapy. I would recommend continuing to diurese the patient as tolerated by hemodynamics. Low clinical index of suspicion for underlying pulmonary infectious process given lack of symptoms, fever or white count. While an underlying inflammatory condition or granulomatosis lung disease would also be a possibility, the patient was asymptomatic from a respiratory perspective until supplemental IV fluids were administered. Therefore, I do feel that it is reasonable to proceed with diuresis at this time. Aggressive bronchopulmonary hygiene will need to be encouraged in the form of an incentive spirometer. The patient's oxygen needs to be weaned to maintain saturations at or above 90%. Consider dosing IV Lasix two times today. 2. Nephrolithiasis status post stent placement Management per urology recommendations. 3. Personal history of sleep apnea Currently under the care of Dr. Torres. Continue nocturnal Pap therapy per outpatient regimen. 4. Advanced age and deconditioning/paroxysmal atrial fibrillation/hypothyroidism/depression/dementia/hypertension Complicates care, management, recovery and prognosis. Continue home medications as indicated. This note was generated with [employer] software. It may contain incorrect words, spelling, and punctuation that were not noted in checking the note before signing. Code Visit Inpatient E&M: 63913 Subs Hosp L2
[2019-08-23] MEDS: Azelastine HCl NASAL.SRY 1 SPRAY NASAL (07:41)
[2019-08-23] MEDS: Fluticasone 0.05% 1 SPRAY NASAL.SRY NASAL (07:41)
[2019-08-23] MEDS: Amiodarone 200 MG Tablet PO (07:43)
[2019-08-23] MEDS: Docusate Sodium 100 MG Capsule PO ×2 (07:44→22:17)
[2019-08-23] MEDS: cycloBENZAPRine HCl 5 MG TABLET PO ×2 (07:46→22:17)
[2019-08-23] MEDS: Calcium Carb/Vitamin D 1 TABLET Tablet PO ×3 (07:46→16:58)
[2019-08-23] MEDS: Pantoprazole Sodium 40 MG Tablet PO (07:47)
[2019-08-23] MEDS: Cyanocobalamin 500 MCG Tablet 1000 MCG PO (07:47)
[2019-08-23] MEDS: Memantine Hydrochloride 10 MG Tablet PO ×2 (07:47→22:19)
[2019-08-23] MEDS: APIXABAN 2.5 MG TABLET PO ×2 (07:48→22:19)
[2019-08-23] MEDS: Furosemide 40 MG/4 ML Vial IV ×2 (07:48→16:57)
[2019-08-23] MEDS: Carvedilol 3.125 MG TABLET PO ×2 (07:48→22:16)
[2019-08-23] MEDS: 0.9% Saline Lock 10 ML Syringe IV ×2 (07:52→16:58)
--- NOTE | 2019-08-23 08:03 | PCM.PN.HOSP ---
Subjective: CC follow-up acute hypoxic respiratory failure Patient seen complains of feeling weak. Still on oxygen did discuss with the patient's with plans to wean off oxygen and if unable to will consider transfer to a long term facility Objective: GENERAL: cooperative HEENT: Atraumatic; EYES; Anicteric, NECK; supple, normal thyroid, RESPIRATORY: Diminished to auscultation CARDIOVASCULAR: Irregular S1 S2, GI: soft, non-tender, normoactive bowel sounds, : No Renal angle tenderness; EXTREMITIES: No edema, no clubbing, MUSCULOSKELETAL: No Joint Tenderness; NEURO: Awake; no lateralizing signs. SKIN: No Rash PSYCH; flat affect Vitals/I&O's: Vital Signs Temp Pulse Resp BP Pulse Ox 97.3 F L 63 16 115/62 95 08/23/19 03:13 08/23/19 03:13 08/23/19 03:13 08/23/19 03:13 08/23/19 03:30 Oxygen Flow Rate (L/min) 2 Oxygen Delivery Method Nasal Cannula Weight: 60.8 kg Body Mass Index (BMI) 25.3 Intake and Output for Last 24 Hours 08/21/19 08/22/19 08/23/19 23:59 23:59 23:59 Intake Total 650 / 650 200 / 440 300 / 300 Output Total 1650 / 1650 400 / 650 550 / 550 Balance -1000 / -1000 -200 / -210 -250 / -250 Microbiology Past 72 Hours 08/20/19 Unknown Urine, Catheterized Urine Culture - Final Culture exhibits no growth. Laboratory Results 08/22/19 05:50: B-Natriuretic Peptide 860.9 H Current Medications Acetaminophen (Tylenol) 325 mg PO Q4H PRN PRN PRN Reason: Pain Score 1-08/11 Last Admin: 08/22/19 22:38 Dose: 325 mg Documented by: Al Hydroxide/Mg Hydroxide (Mylanta Ii) 30 ml PO Q4H PRN PRN PRN Reason: Heartburn Amiodarone HCl (Cordarone) 200 mg PO DAILY@0800 [facility] Last Admin: 08/23/19 07:43 Dose: 200 mg Documented by: Apixaban (Eliquis) 2.5 mg PO BID [facility] Last Admin: 08/23/19 07:48 Dose: 2.5 mg Documented by: Azelastine HCl (Astelin) 1 spray NASAL BID PRN PRN PRN Reason: RUNNY NOSE Last Admin: 08/23/19 07:41 Dose: 1 spray Documented by: Calcium/Vitamin D (Os-Raymond 500mg + D) 1 tablet PO TIDCM [facility] Last Admin: 08/23/19 07:46 Dose: 1 tablet Documented by: Carvedilol (Coreg) 3.125 mg PO BID [facility] Last Admin: 08/23/19 07:48 Dose: 3.125 mg Documented by: Cholecalciferol (Vitamin D) 2,000 unit PO DAILY [facility] Last Admin: 08/23/19 07:45 Dose: 2,000 unit Documented by: Cyanocobalamin (Vitamin B12) 1,000 mcg PO DAILY [facility] Last Admin: 08/23/19 07:47 Dose: 1,000 mcg Documented by: Cyclobenzaprine HCl (Cyclobenzaprine Hcl) 5 mg PO BID [facility] Last Admin: 08/23/19 07:46 Dose: 5 mg Documented by: Docusate Sodium (Colace) 100 mg PO BID [facility] Last Admin: 08/23/19 07:44 Dose: 100 mg Documented by: Duloxetine HCl (Cymbalta) 20 mg PO QHS [facility] Last Admin: 08/22/19 21:26 Dose: 20 mg Documented by: Fluticasone Propionate (Flonase Nasal [place]) 1 spray NASAL BID PRN PRN PRN Reason: RUNNY NOSE Last Admin: 08/23/19 07:41 Dose: 1 spray Documented by: Furosemide (Lasix) 40 mg IV DAILY [facility] Last Admin: 08/23/19 07:48 Dose: 40 mg Documented by: Sodium Chloride () 250 mls @ 15 mls/hr IV .[id number] PRN PRN Reason: Saline Flush Ibuprofen (Motrin) 600 mg PO Q6H PRN PRN PRN Reason: Pain Score 1-10/10 Levothyroxine Sodium (Synthroid) 50 mcg PO DAILY@0600 [facility] Last Admin: 08/23/19 05:17 Dose: 50 mcg Documented by: Memantine (Namenda) 10 mg PO BID [facility] Last Admin: 08/23/19 07:47 Dose: 10 mg Documented by: Nutritional Formula (Lactose Free) (Ensure Enlive) 120 ml PO 4X/DAY [facility] Last Admin: 08/23/19 07:48 Dose: 120 ml Documented by: Oxycodone HCl (Oxyir) 5 mg PO Q4H PRN PRN PRN Reason: Pain Score 1-08/11 Pantoprazole Sodium (Protonix) 40 mg PO DAILY [facility] Last Admin: 08/23/19 07:47 Dose: 40 mg Documented by: Potassium Chloride (K-Dur) 20 meq PO DAILYCM [facility] Last Admin: 08/23/19 07:42 Dose: 20 meq Documented by: Sodium Chloride ([place] Nasal [place]) 1 spray NASAL TID PRN PRN PRN Reason: NASAL DRYNESS Last Admin: 08/22/19 22:35 Dose: 1 spray Documented by: Sodium Chloride () 5 - 15 ml IV UD PRN PRN Reason: SALINE FLUSH Last Admin: 08/23/19 07:52 Dose: 10 ml Documented by: Tramadol HCl (Ultram) 50 mg PO Q6H PRN PRN PRN Reason: Pain Score 4-6 Medical Necessity - Tobacco Use Smoking Status: Never smoker Tobacco Use: Non-smoker Assessment/Plan All Active Problems (Last Reviewed 08/19/19 @ 15:53 by Ortiz Cueva MD) Debility (Acute) Acute on chronic systolic heart failure (Acute) Hypotension (Acute) HFrEF (heart failure with reduced ejection fraction) (Acute) Weakness (Acute) Chronic systolic (congestive) heart failure (Acute) Patient is an 83-year-old lady who underwent Cystoscopy, left retrograde pyelogram, interpretation fluoroscopic images, manipulation of stone, placement of the stent left side on account of Left obstructing mid ureteral calculi; the hospitalist service was consulted for management of patient medical comorbidities 1. Status post Cystoscopy, left retrograde pyelogram, interpretation fluoroscopic images, manipulation of stone, placement of the stent left side on account of Left obstructing mid ureteral calculi on 08/20/2019. Subsequent management deferred to urology 2. Acute hypoxic respiratory failure ~Suspected to be secondary to fluid overload. Patient is known to have ischemic cardiomyopathy with an ejection fraction of 35%. Patient was placed on IV Lasix and supplemental oxygen titrated to keep saturation greater than 90. Consult was placed to pulmonary medicine per request from patient's family 3. Obstructive sleep apnea ~ on CPAP at HS 4. Hypothyroidism ~patient is on levothyroxine home dose continued 5. Paroxysmal fibrillation ~ rate controlled on amiodarone and on systemic anticoagulation with Eliquis 6. Depression with anxiety ~patient is on duloxetine 7. GERD ? On PPI 8. DVT prophylaxis ~ on Eliquis 9. Physical deconditioning ?Patient seen complains of feeling weak. Still on oxygen did discuss with the patient's with plans to wean off oxygen and if unable to will consider transfer to a long term facility 10. Acute kidney injury secondary to cardiorenal syndrome - Kidney function improved with diuresis Code Visit Inpatient E&M: 60262 Subs Hosp L2
[2019-08-23 08:43] LABS: Absolute Lymphocyte Count 1.14 X10^3/uL (0.83-4.51); Absolute Neutrophil Count 4.8 X10^3/uL (2.0-7.7); Basophil# 0.06 X10^3/uL; Basophil% 0.8 % (0-1); Eosinophil# 0.55 X10^3/uL; Eosinophils% 7.6 % (0-5); Hematocrit 34.3 % (37-47); Lymphocyte # 1.14 X10^3/ul (4.0); Lymphocyte % 15.7 % (19-41); Mean Corp Hgb Conc 32.1 g/dL (32-36); Mean Corpuscular Hgb 31.7 pg (27.0-32.0); Mean Corpuscular Volume 98.8 fL (81-99); Mean Platelet Vol. 10.6 fl (6.2-12.0); Monocyte# 0.71 X10^3/uL; Monocyte% 9.8 % (0-10); NRBC Flagged by Analyzer 0 % (0-5); Neutrophil # 4.79 X10^3/uL (2.7-7.7); Neutrophil % 65.7 % (47-70); Platelet Count 230 K/mm3 (150-450); RBC Distribution Width CV 15.6 % (11.6-14.6); RBC Distribution Width SD 56.3 fl (35.1-43.9); Red Blood Count 3.47 M/mm3 (4.2-5.4); White Blood Count 7.3 K/mm3 (4.4-11.0)
[2019-08-23 09:05] LABS: Anion Gap 7 (5-15); BUN 18 mg/dL (7-18); BUN/Creat Ratio 15.4 RATIO (10-20); Calcium,Total 8.6 mg/dL (8.5-10.1); Chloride 107 mmol/L (98-107); Creatinine, Serum 1.17 mg/dL (0.55-1.02); EST Glomerular Filtration Rate 47 mL/min (>60); Est Glom Filt Rate - Afr Amer 57 mL/min (>60); Estimated Creatinine Clearance 28.46 ml/min; Glucose 117 mg/dL (74-106); Magnesium 1.9 mg/dL (1.6-2.6); Sodium Level 140 mmol/L (136-145)
--- NOTE | 2019-08-23 10:31 | CASEMGMT ---
Social Work Note Physician updated this worker that pt will tried to be weened off oxygen but if tomorrow pt is still requiring oxygen then pt will discharge tomorrow to SNF. AIDA spoke with RN DIANE who states if SNF is needed, pt's wanted TCU or no where. AIDA placed a call to referral line and spoke with Renetta. Renetta states she will have a bed for pt tomorrow in TCU. Plan: If able to be weened off oxygen the plan is home. If pt is requiring oxygen then pt is able to go to TCU. Dawn Escalante ENRICHMENT TEACHER, ANNUAL CAMPAIGN MANAGER
[2019-08-23] MEDS: Acetaminophen 325 MG Tablet PO (20:47)
[2019-08-23] MEDS: traMADol 50 MG Tablet PO (22:17)
[2019-08-23] MEDS: DULoxetine Hcl 20 MG Capsule PO (22:19)
[2019-08-23] MEDS: oxyCODONE 5 MG Tablet PO (23:32)
--- NOTE | 2019-08-23 23:55 | CPS ---
pt refusing to wear CPAP for tonight.
[2019-08-24 00:30] VITALS: O2SAT 86
[2019-08-24 03:15] VITALS: BP 111/53; PULSE 59; RESP 16; TEMP 36.4; O2SAT 97
[2019-08-24] MEDS: Levothyroxine 50 MCG Tablet PO (05:12)
[2019-08-24 06:01] LABS: Absolute Neutrophil Count 2.7 X10^3/uL (2.0-7.7); Basophil# 0.09 X10^3/uL; Basophil% 1.5 % (0-1); Eosinophil# 0.66 X10^3/uL; Eosinophils% 11.1 % (0-5); Hematocrit 32.3 % (37-47); Hemoglobin 10.3 g/dL (12.0-15.0); Lymphocyte % 30.2 % (19-41); Mean Corp Hgb Conc 31.9 g/dL (32-36); Mean Corpuscular Hgb 31.9 pg (27.0-32.0); Monocyte% 11.7 % (0-10); NRBC Flagged by Analyzer 0 % (0-5); Neutrophil # 2.69 X10^3/uL (2.7-7.7); Neutrophil % 45.2 % (47-70); Platelet Count 234 K/mm3 (150-450); RBC Distribution Width CV 15.4 % (11.6-14.6); Red Blood Count 3.23 M/mm3 (4.2-5.4)
[2019-08-24 06:12] LABS: Anion Gap 7 (5-15); BUN 23 mg/dL (7-18); BUN/Creat Ratio 16.9 RATIO (10-20); Calcium,Total 8.5 mg/dL (8.5-10.1); Chloride 105 mmol/L (98-107); Creatinine, Serum 1.36 mg/dL (0.55-1.02); EST Glomerular Filtration Rate 40 mL/min (>60); Est Glom Filt Rate - Afr Amer 48 mL/min (>60); Estimated Creatinine Clearance 24.48 ml/min; Glucose 95 mg/dL (74-106); Potassium 3.9 mmol/L (3.5-5.1); Sodium Level 143 mmol/L (136-145)
--- NOTE | 2019-08-24 07:16 | PCM.PN.PUL ---
Patient Problems: Active and Suspected Problems (Last Reviewed 08/19/19 @ 15:53 by Ortiz Cueva MD) Left ureteral calculus (Acute) Hydroureter, left (Acute) Hydronephrosis, left (Acute) Acute on chronic systolic (congestive) heart failure (Acute) Acute hypoxemic respiratory failure (Acute) Subjective: The patient was seen and examined at the bedside this morning. Events from the last 24 hours have been reviewed. The patient is currently afebrile, hemodynamically stable and maintaining appropriate oxygen saturations on 1 L/min via nasal cannula. However, it does appear that the patient was able to be weaned to room air yesterday evening. She was placed back on a small amount of supplemental oxygen overnight, as she refused to utilize her CPAP. This morning, the patient reports feeling tired but denies any resting shortness of breath to me. Objective: The patient's most recent lab work, culture data and imaging studies have all been personally reviewed. - Physical Exam Vitals/I&O's: Vital Signs Temp Pulse Resp BP Pulse Ox 97.6 F L 59 L 16 111/53 L 97 08/24/19 03:15 08/24/19 03:15 08/24/19 03:15 08/24/19 03:15 08/24/19 03:15 Oxygen Flow Rate (L/min) 1 Oxygen Delivery Method Nasal Cannula Weight: 134 lb 0.657 oz Body Mass Index (BMI) 25.3 Intake and Output for Last 24 Hours 08/22/19 08/23/19 08/24/19 23:59 23:59 23:59 Intake Total 200 / 440 550 / 550 Output Total 400 / 650 1700 / 1700 150 / 150 Balance -200 / -210 -1150 / -1150 -150 / -150 General: Alert, Cooperative, No apparent distress HEENT: Atraumatic, PERRLA, Normocephalic Oral: No Gingival or Mucosal Lesions/ Ulcerations Neck: Supple, No Nodes, Trachea Midline Lungs: No rhonchi, No wheeze, Diminished, Rales Cardiovascular: Normal S1, Normal S2, No murmurs, Irregular Rate Abdomen: Bowel Sounds Present, Soft, Non Tender Extremities: No clubbing, No cyanosis, No edema Skin: No breakdown Musculoskeletal: No Tenderness to Palpation of Joints or Extremities Lymphatic: No Cervical, Supraclavicular, or Inguinal Adenopathy Neurological: Neuro grossly intact Psych/Mental Status: Normal Affect, Appropriate Microbiology Past 72 Hours 08/20/19 Unknown Urine, Catheterized Urine Culture - Final Culture exhibits no growth. Laboratory Results 08/23/19 08:27: WBC 7.3, RBC 3.47 L, Hgb 11.0 L, Hct 34.3 L, MCV 98.8, MCH 31.7, MCHC 32.1, RDW Std Deviation 56.3 H, RDW Coeff of Silvano 15.6 H, Plt Count 230, MPV 10.6, Immature Gran % (Auto) 0.400, Neut % (Auto) 65.7, Lymph % (Auto) 15.7 L, [place] % (Auto) 9.8, Eos % (Auto) 7.6 H, Baso % (Auto) 0.8, Absolute Neuts (auto) 4.8, Absolute Lymphs (auto) 1.14, Nucleated RBC % 0 08/23/19 08:27: Sodium 140, Potassium 4.0, Chloride 107, Carbon Dioxide 26.0, Anion Gap 7, BUN 18, Creatinine 1.17 H, Estim Creat Clear Calc 28.46, Est GFR (MDRD) Af Amer 57 L, Est GFR (MDRD) Non-Af 47 L, BUN/Creatinine Ratio 15.4, Glucose 117 H, Calcium 8.6, Magnesium 1.9 08/24/19 05:30: WBC 6.0, RBC 3.23 L, Hgb 10.3 L, Hct 32.3 L, MCV 100.0 H, MCH 31.9, MCHC 31.9 L, RDW Std Deviation 57.0 H, RDW Coeff of Silvano 15.4 H, Plt Count 234, MPV 11.0, Immature Gran % (Auto) 0.300, Neut % (Auto) 45.2 L, Lymph % (Auto) 30.2, [place] % (Auto) 11.7 H, Eos % (Auto) 11.1 H, Baso % (Auto) 1.5 H, Absolute Neuts (auto) 2.7, Absolute Lymphs (auto) 1.80, Nucleated RBC % 0 08/24/19 05:30: Sodium 143, Potassium 3.9, Chloride 105, Carbon Dioxide 31.0, Anion Gap 7, BUN 23 H, Creatinine 1.36 H, Estim Creat Clear Calc 24.48, Est GFR (MDRD) Af Amer 48 L, Est GFR (MDRD) Non-Af 40 L, BUN/Creatinine Ratio 16.9, Glucose 95, Calcium 8.5, Magnesium 2.0 Labs (Last 48 Hours) 08/22/19 08/23/19 08/23/19 05:50 08:27 08:27 WBC 7.3 RBC 3.47 L Hgb 11.0 L Hct 34.3 L MCV 98.8 MCH 31.7 MCHC 32.1 RDW Std Deviation 56.3 H RDW Coeff of Silvano 15.6 H Plt Count 230 MPV 10.6 Immature Gran % (Auto) 0.400 Neut % (Auto) 65.7 Lymph % (Auto) 15.7 L [place] % (Auto) 9.8 Eos % (Auto) 7.6 H Baso % (Auto) 0.8 Absolute Neuts (auto) 4.8 Absolute Lymphs (auto) 1.14 Nucleated RBC % 0 Sodium 140 Potassium 4.0 Chloride 107 Carbon Dioxide 26.0 Anion Gap 7 BUN 18 Creatinine 1.17 H Estim Creat Clear Calc 28.46 Est GFR (MDRD) Af Amer 57 L Est GFR (MDRD) Non-Af 47 L BUN/Creatinine Ratio 15.4 Glucose 117 H Calcium 8.6 Magnesium 1.9 B-Natriuretic Peptide 860.9 H 08/24/19 08/24/19 05:30 05:30 WBC 6.0 RBC 3.23 L Hgb 10.3 L Hct 32.3 L MCV 100.0 H MCH 31.9 MCHC 31.9 L RDW Std Deviation 57.0 H RDW Coeff of Silvano 15.4 H Plt Count 234 MPV 11.0 Immature Gran % (Auto) 0.300 Neut % (Auto) 45.2 L Lymph % (Auto) 30.2 [place] % (Auto) 11.7 H Eos % (Auto) 11.1 H Baso % (Auto) 1.5 H Absolute Neuts (auto) 2.7 Absolute Lymphs (auto) 1.80 Nucleated RBC % 0 Sodium 143 Potassium 3.9 Chloride 105 Carbon Dioxide 31.0 Anion Gap 7 BUN 23 H Creatinine 1.36 H Estim Creat Clear Calc 24.48 Est GFR (MDRD) Af Amer 48 L Est GFR (MDRD) Non-Af 40 L BUN/Creatinine Ratio 16.9 Glucose 95 Calcium 8.5 Magnesium 2.0 B-Natriuretic Peptide Microbiology 08/20/19 Unknown Urine, Catheterized Urine Culture - Final Culture exhibits no growth. Clinical Impression(s) from Imaging Studies Abdomen/Pelvis CT 08/19/19 12:04 IMPRESSION: 7.7 mm calculus in the midportion of the left ureter with the left hydronephrosis and hydroureter. Electronically Signed: Shivam Raymond, at 13:57 EDT , Service support , Chest X-Ray 08/20/19 18:45 IMPRESSION: Acute groundglass opacities bilateral upper lungs. Suspicious for cardiogenic pulmonary edema given the cardiomegaly. Pneumonia, noninfectious pneumonitis also possible. Suspect small pleural effusions. Underlying mild chronic interstitial lung disease. Electronically Signed: Donato Figueroa, at 19:58 EDT Tel , Service support , Current Medications Acetaminophen (Tylenol) 325 mg PO Q4H PRN PRN PRN Reason: Pain Score 1-1010 Last Admin: 08/23/19 20:47 Dose: 325 mg Documented by: Al Hydroxide/Mg Hydroxide (Mylanta Ii) 30 ml PO Q4H PRN PRN PRN Reason: Heartburn Amiodarone HCl (Cordarone) 200 mg PO DAILY@0800 [facility] Last Admin: 08/23/19 07:43 Dose: 200 mg Documented by: Apixaban (Eliquis) 2.5 mg PO BID [facility] Last Admin: 08/23/19 22:19 Dose: 2.5 mg Documented by: Azelastine HCl (Astelin) 1 spray NASAL BID PRN PRN PRN Reason: RUNNY NOSE Last Admin: 08/23/19 07:41 Dose: 1 spray Documented by: Calcium/Vitamin D (Os-Raymond 500mg + D) 1 tablet PO TIDCM [facility] Last Admin: 08/23/19 16:58 Dose: 1 tablet Documented by: Carvedilol (Coreg) 3.125 mg PO BID [facility] Last Admin: 08/23/19 22:16 Dose: 3.125 mg Documented by: Cholecalciferol (Vitamin D) 2,000 unit PO DAILY [facility] Last Admin: 08/23/19 07:45 Dose: 2,000 unit Documented by: Cyanocobalamin (Vitamin B12) 1,000 mcg PO DAILY [facility] Last Admin: 08/23/19 07:47 Dose: 1,000 mcg Documented by: Cyclobenzaprine HCl (Cyclobenzaprine Hcl) 5 mg PO BID [facility] Last Admin: 08/23/19 22:17 Dose: 5 mg Documented by: Docusate Sodium (Colace) 100 mg PO BID [facility] Last Admin: 08/23/19 22:17 Dose: 100 mg Documented by: Duloxetine HCl (Cymbalta) 20 mg PO QHS [facility] Last Admin: 08/23/19 22:19 Dose: 20 mg Documented by: Fluticasone Propionate (Flonase Nasal [place]) 1 spray NASAL BID PRN PRN PRN Reason: RUNNY NOSE Last Admin: 08/23/19 07:41 Dose: 1 spray Documented by: Furosemide (Lasix) 40 mg IV DAILY [facility] Last Admin: 08/23/19 07:48 Dose: 40 mg Documented by: Sodium Chloride () 250 mls @ 15 mls/hr IV .[id number] PRN PRN Reason: Saline Flush Ibuprofen (Motrin) 600 mg PO Q6H PRN PRN PRN Reason: Pain Score 1-10/10 Levothyroxine Sodium (Synthroid) 50 mcg PO DAILY@0600 [facility] Last Admin: 08/24/19 05:12 Dose: 50 mcg Documented by: Memantine (Namenda) 10 mg PO BID [facility] Last Admin: 08/23/19 22:19 Dose: 10 mg Documented by: Nutritional Formula (Lactose Free) (Ensure Enlive) 120 ml PO 4X/DAY [facility] Last Admin: 08/23/19 22:19 Dose: Not Given Documented by: Oxycodone HCl (Oxyir) 5 mg PO Q4H PRN PRN PRN Reason: Pain Score 1-10/10 Last Admin: 08/23/19 23:32 Dose: 5 mg Documented by: Pantoprazole Sodium (Protonix) 40 mg PO DAILY [facility] Last Admin: 08/23/19 07:47 Dose: 40 mg Documented by: Potassium Chloride (K-Dur) 20 meq PO DAILYCM [facility] Last Admin: 08/23/19 07:42 Dose: 20 meq Documented by: Sodium Chloride ([place] Nasal [place]) 1 spray NASAL TID PRN PRN PRN Reason: NASAL DRYNESS Last Admin: 08/22/19 22:35 Dose: 1 spray Documented by: Sodium Chloride () 5 - 15 ml IV UD PRN PRN Reason: SALINE FLUSH Last Admin: 08/23/19 16:58 Dose: 10 ml Documented by: Tramadol HCl (Ultram) 50 mg PO Q6H PRN PRN PRN Reason: Pain Score 4-6 Last Admin: 08/23/19 22:17 Dose: 50 mg Documented by: Medical Necessity - Tobacco Use Smoking Status: Never smoker Tobacco Use: Non-smoker Assessment/Plan All Active Problems (Last Reviewed 08/19/19 @ 15:53 by Ortiz Cueva MD) Debility (Acute) Acute on chronic systolic heart failure (Acute) Hypotension (Acute) Left ureteral calculus (Acute) Hydroureter, left (Acute) Hydronephrosis, left (Acute) Acute on chronic systolic (congestive) heart failure (Acute) Acute hypoxemic respiratory failure (Acute) HFrEF (heart failure with reduced ejection fraction) (Acute) Weakness (Acute) Chronic systolic (congestive) heart failure (Acute) RECOMMENDATIONS: 1. Transition from IV back to p.o. Lasix regimen. 2. Wean supplemental oxygen to maintain saturations at or above 90%. 3. Encourage incentive spirometer use and mobilize patient as tolerated. 4. Continue nocturnal Pap therapy. 5. Outpatient pulmonary follow-up with Dr. Torres. IMPRESSIONS: 1. Acute hypoxemic respiratory insufficiency Suspect related to decompensated heart failure. The patient's presentation is quite similar to that of her previous hospitalizations. The patient has always responded to IV diuretic therapy. I would recommend continuing to diurese the patient as tolerated by hemodynamics. Low clinical index of suspicion for underlying pulmonary infectious process given lack of symptoms, fever or white count. While an underlying inflammatory condition or granulomatosis lung disease would also be a possibility, the patient was asymptomatic from a respiratory perspective until supplemental IV fluids were administered. Therefore, I do feel that it is reasonable to proceed with diuresis at this time. Aggressive bronchopulmonary hygiene will need to be encouraged in the form of an incentive spirometer. The patient's oxygen needs to be weaned to maintain saturations at or above 90%. IV Lasix can likely be transitioned back to p.o. regimen. Perform walking oximetry study prior to consideration for discharge from the hospital. 2. Nephrolithiasis status post stent placement Management per urology recommendations. 3. Personal history of sleep apnea Currently under the care of Dr. Torres. Continue nocturnal Pap therapy per outpatient regimen. 4. Advanced age and deconditioning/paroxysmal atrial fibrillation/hypothyroidism/depression/dementia/hypertension Complicates care, management, recovery and prognosis. Continue home medications as indicated. This note was generated with [employer] dictation software. It may contain incorrect words, spelling, and punctuation that were not noted in checking the note before signing. Code Visit Inpatient E&M: 70830 Subs Hosp L2
[2019-08-24 07:50] VITALS: O2SAT 86
--- NOTE | 2019-08-24 07:59 | PN_ITS ---
Subjective: CC follow-up acute respiratory failure Patient apparently declined wearing his CPAP during the night. Patient desaturates easily once oxygen is weaned off. Patient will therefore be discharged to the transitional care unit as previously discussed with patient's family. Objective: GENERAL: cooperative HEENT: Atraumatic; EYES; Anicteric, NECK; supple, normal thyroid, RESPIRATORY: Diminished to auscultation CARDIOVASCULAR: Irregular S1 S2, GI: soft, non-tender, normoactive bowel sounds, : No Renal angle tenderness; EXTREMITIES: No edema, no clubbing, MUSCULOSKELETAL: No Joint Tenderness; NEURO: Awake; no lateralizing signs. SKIN: No Rash PSYCH; flat affect Vitals/I&O's: Vital Signs Temp Pulse Resp BP Pulse Ox 97.6 F L 59 L 16 111/53 L 97 08/24/19 03:15 08/24/19 03:15 08/24/19 03:15 08/24/19 03:15 08/24/19 03:15 Oxygen Flow Rate (L/min) 1 Oxygen Delivery Method Nasal Cannula Weight: 60.8 kg Body Mass Index (BMI) 25.3 Intake and Output for Last 24 Hours 08/22/19 08/23/19 08/24/19 23:59 23:59 23:59 Intake Total 200 / 440 550 / 550 Output Total 400 / 650 1700 / 1700 150 / 150 Balance -200 / -210 -1150 / -1150 -150 / -150 Microbiology Past 72 Hours 08/20/19 Unknown Urine, Catheterized Urine Culture - Final Culture exhibits no growth. Laboratory Results 08/23/19 08:27: WBC 7.3, RBC 3.47 L, Hgb 11.0 L, Hct 34.3 L, MCV 98.8, MCH 31.7, MCHC 32.1, RDW Std Deviation 56.3 H, RDW Coeff of Silvano 15.6 H, Plt Count 230, MPV 10.6, Immature Gran % (Auto) 0.400, Neut % (Auto) 65.7, Lymph % (Auto) 15.7 L, [place] % (Auto) 9.8, Eos % (Auto) 7.6 H, Baso % (Auto) 0.8, Absolute Neuts (auto) 4.8, Absolute Lymphs (auto) 1.14, Nucleated RBC % 0 08/23/19 08:27: Sodium 140, Potassium 4.0, Chloride 107, Carbon Dioxide 26.0, Anion Gap 7, BUN 18, Creatinine 1.17 H, Estim Creat Clear Calc 28.46, Est GFR (MDRD) Af Amer 57 L, Est GFR (MDRD) Non-Af 47 L, BUN/Creatinine Ratio 15.4, Glucose 117 H, Calcium 8.6, Magnesium 1.9 08/24/19 05:30: WBC 6.0, RBC 3.23 L, Hgb 10.3 L, Hct 32.3 L, MCV 100.0 H, MCH 31.9, MCHC 31.9 L, RDW Std Deviation 57.0 H, RDW Coeff of Silvano 15.4 H, Plt Count 234, MPV 11.0, Immature Gran % (Auto) 0.300, Neut % (Auto) 45.2 L, Lymph % (Auto) 30.2, [place] % (Auto) 11.7 H, Eos % (Auto) 11.1 H, Baso % (Auto) 1.5 H, Absolute Neuts (auto) 2.7, Absolute Lymphs (auto) 1.80, Nucleated RBC % 0 08/24/19 05:30: Sodium 143, Potassium 3.9, Chloride 105, Carbon Dioxide 31.0, Anion Gap 7, BUN 23 H, Creatinine 1.36 H, Estim Creat Clear Calc 24.48, Est GFR (MDRD) Af Amer 48 L, Est GFR (MDRD) Non-Af 40 L, BUN/Creatinine Ratio 16.9, Glucose 95, Calcium 8.5, Magnesium 2.0 Current Medications Acetaminophen (Tylenol) 325 mg PO Q4H PRN PRN PRN Reason: Pain Score 1-10/10 Last Admin: 08/23/19 20:47 Dose: 325 mg Documented by: Al Hydroxide/Mg Hydroxide (Mylanta Ii) 30 ml PO Q4H PRN PRN PRN Reason: Heartburn Amiodarone HCl (Cordarone) 200 mg PO DAILY@0800 [facility] Last Admin: 08/23/19 07:43 Dose: 200 mg Documented by: Apixaban (Eliquis) 2.5 mg PO BID [facility] Last Admin: 08/23/19 22:19 Dose: 2.5 mg Documented by: Azelastine HCl (Astelin) 1 spray NASAL BID PRN PRN PRN Reason: RUNNY NOSE Last Admin: 08/23/19 07:41 Dose: 1 spray Documented by: Calcium/Vitamin D (Os-Raymond 500mg + D) 1 tablet PO TIDCM [facility] Last Admin: 08/23/19 16:58 Dose: 1 tablet Documented by: Carvedilol (Coreg) 3.125 mg PO BID [facility] Last Admin: 08/23/19 22:16 Dose: 3.125 mg Documented by: Cholecalciferol (Vitamin D) 2,000 unit PO DAILY [facility] Last Admin: 08/23/19 07:45 Dose: 2,000 unit Documented by: Cyanocobalamin (Vitamin B12) 1,000 mcg PO DAILY [facility] Last Admin: 08/23/19 07:47 Dose: 1,000 mcg Documented by: Cyclobenzaprine HCl (Cyclobenzaprine Hcl) 5 mg PO BID [facility] Last Admin: 08/23/19 22:17 Dose: 5 mg Documented by: Docusate Sodium (Colace) 100 mg PO BID [facility] Last Admin: 08/23/19 22:17 Dose: 100 mg Documented by: Duloxetine HCl (Cymbalta) 20 mg PO QHS [facility] Last Admin: 08/23/19 22:19 Dose: 20 mg Documented by: Fluticasone Propionate (Flonase Nasal [place]) 1 spray NASAL BID PRN PRN PRN Reason: RUNNY NOSE Last Admin: 08/23/19 07:41 Dose: 1 spray Documented by: Furosemide (Lasix) 40 mg IV DAILY [facility] Last Admin: 08/23/19 07:48 Dose: 40 mg Documented by: Sodium Chloride () 250 mls @ 15 mls/hr IV .[id number] PRN PRN Reason: Saline Flush Ibuprofen (Motrin) 600 mg PO Q6H PRN PRN PRN Reason: Pain Score 1-10/10 Levothyroxine Sodium (Synthroid) 50 mcg PO DAILY@0600 [facility] Last Admin: 08/24/19 05:12 Dose: 50 mcg Documented by: Memantine (Namenda) 10 mg PO BID [facility] Last Admin: 08/23/19 22:19 Dose: 10 mg Documented by: Nutritional Formula (Lactose Free) (Ensure Enlive) 120 ml PO 4X/DAY [facility] Last Admin: 08/23/19 22:19 Dose: Not Given Documented by: Oxycodone HCl (Oxyir) 5 mg PO Q4H PRN PRN PRN Reason: Pain Score 1-10 Last Admin: 08/23/19 23:32 Dose: 5 mg Documented by: Pantoprazole Sodium (Protonix) 40 mg PO DAILY [facility] Last Admin: 08/23/19 07:47 Dose: 40 mg Documented by: Potassium Chloride (K-Dur) 20 meq PO DAILYCM [facility] Last Admin: 08/23/19 07:42 Dose: 20 meq Documented by: Sodium Chloride ([place] Nasal [place]) 1 spray NASAL TID PRN PRN PRN Reason: NASAL DRYNESS Last Admin: 08/22/19 22:35 Dose: 1 spray Documented by: Sodium Chloride () 5 - 15 ml IV UD PRN PRN Reason: SALINE FLUSH Last Admin: 08/23/19 16:58 Dose: 10 ml Documented by: Tramadol HCl (Ultram) 50 mg PO Q6H PRN PRN PRN Reason: Pain Score 4-6 Last Admin: 08/23/19 22:17 Dose: 50 mg Documented by: Medical Necessity - Tobacco Use Smoking Status: Never smoker Tobacco Use: Non-smoker Assessment/Plan All Active Problems (Last Reviewed 08/19/19 @ 15:53 by Ortiz Cueva MD) Debility (Acute) Acute on chronic systolic heart failure (Acute) Hypotension (Acute) HFrEF (heart failure with reduced ejection fraction) (Acute) Weakness (Acute) Chronic systolic (congestive) heart failure (Acute) Patient is an 83-year-old lady who underwent Cystoscopy, left retrograde pyelogram, interpretation fluoroscopic images, manipulation of stone, placement of the stent left side on account of Left obstructing mid ureteral calculi; the hospitalist service was consulted for management of patient medical comorbidities 1. Status post Cystoscopy, left retrograde pyelogram, interpretation fluoroscopic images, manipulation of stone, placement of the stent left side on account of Left obstructing mid ureteral calculi on 08/20/2019. Subsequent management deferred to urology 2. Acute hypoxic respiratory failure ~Suspected to be secondary to fluid overload. Patient is known to have ischemic cardiomyopathy with an ejection fraction of 35%. Patient was placed on IV Lasix and supplemental oxygen titrated to keep saturation greater than 90. Consult was placed to pulmonary medicine per request from patient's family ?08/24/2019. Patient still remains hypoxic on room air patient will therefore be discharged to the transitional care unit. 3. Obstructive sleep apnea ~ on CPAP at HS 4. Hypothyroidism ~patient is on levothyroxine home dose continued 5. Paroxysmal fibrillation ~ rate controlled on amiodarone and on systemic anticoagulation with Eliquis 6. Depression with anxiety ~patient is on duloxetine 7. GERD ? On PPI 8. DVT prophylaxis ~ on Eliquis 9. Physical deconditioning ?Patient seen complains of feeling weak. Still on oxygen did discuss with the patient's with plans to wean off oxygen and if unable to will consider transfer to a intermediate facility 10. Acute kidney injury secondary to cardiorenal syndrome - Kidney function improved with diuresis Code Visit Inpatient E&M: 39759 Subs Hosp L2
[2019-08-24 08:00] VITALS: O2SAT 95; O2SAT 96
--- NOTE | 2019-08-24 08:08 | PCM.TXEXTCAR ---
- Diet 08/20/19 08:03 Diet: Regular Diet Is pt able to select menu?: Yes - Routine Orders/Code Status Code Status: Full Code - Therapies Physical Therapy: Eval and Treat Occupational Therapy: Eval and Treat - Allergies/Procedures Done in Hospital Allergies/Adverse Reactions: Allergies Penicillins [PCN] Allergy (Verified 07/27/19 18:16) Rash - Type of Care/Length of Stay Estimated LOS: Convalescent Care Less Than 30 days Type of Care Needed: Skilled Rehab Potential: Fair Prognosis: Fair - Additional Orders/Day of Discharge Day of Discharge: 08/24/19 - Dietary and Speech Recommendations Dietitian Recommendations/Changes: Rec continue w/ Regular diet order d/t pt poor intake and continue Ensure Enlive at [facility]. Will change ONS at meals from Magic cup (L&D) to Ensure Enlive (B&L). - Follow Up Care Primary Care Physician: Ben Loomis MD [Primary Care Provider] - Please follow up with your Primary Care Physician in: in 2-3 weeks Please Follow Up With: Ortiz Cueva MD When: please call to make an appointment.
--- NOTE | 2019-08-24 08:15 | PCM.DC.SUM ---
Discharge Date and Diagnosis Date of Admission: 08/19/19 Date of Discharge: 08/24/19 - Primary Discharge Diagnosis Nephrolithiasis Acute hypoxic respiratory failure secondary to congestive heart failure - Secondary Discharge Diagnosis Chronic Problems (Last Reviewed 08/19/19 @ 15:53 by Ortiz Cueva MD) Urinary retention (Chronic) Stroke (Chronic) Atrial fibrillation (Chronic) Vascular dementia (Chronic) Expressive aphasia (Chronic) Allergic rhinitis (Chronic) Hypothyroidism (Chronic) Muscle spasm (Chronic) Hypertension (Chronic) Essential (primary) hypertension (Chronic) History of breast cancer (Chronic) 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) last ECHO with a 35 % EF Secondary pulmonary arterial hypertension (Chronic) Nonrheumatic aortic valve insufficiency (Chronic) Nonrheumatic mitral (valve) insufficiency (Chronic) Non-rheumatic tricuspid valve insufficiency (Chronic) Paroxysmal atrial fibrillation (Chronic) 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 Electronically Signed: Shivam Raymond, at 13:57 EDT , Service support , Chest X-Ray 08/20/19 18:45 IMPRESSION: Acute groundglass opacities bilateral upper lungs. Suspicious for cardiogenic pulmonary edema given the cardiomegaly. Pneumonia, noninfectious pneumonitis also possible. Suspect small pleural effusions. Underlying mild chronic interstitial lung disease. Electronically Signed: Dontao Figueroa, at 19:58 EDT Tel , Service support , Operations: None Summary of Care Provided: Patient is an 83-year-old lady who underwent Cystoscopy, left retrograde pyelogram, interpretation fluoroscopic images, manipulation of stone, placement of the stent left side on account of Left obstructing mid ureteral calculi; the hospitalist service was consulted for management of patient medical comorbidities 1. Status post Cystoscopy, left retrograde pyelogram, interpretation fluoroscopic images, manipulation of stone, placement of the stent left side on account of Left obstructing mid ureteral calculi on 08/20/2019. Subsequent management deferred to urology 2. Acute hypoxic respiratory failure due to acute on chronic congestive heart failure with decreased ejection fraction Patient is known to have ischemic cardiomyopathy with an ejection fraction of 35%. Patient was placed on IV Lasix and supplemental oxygen titrated to keep saturation greater than 90. Consult was placed to pulmonary medicine per request from patient's family 3. Obstructive sleep apnea ~ on CPAP at HS 4. Hypothyroidism ~patient is on levothyroxine home dose continued 5. Paroxysmal fibrillation ~ rate controlled on amiodarone and on systemic anticoagulation with Eliquis 6. Depression with anxiety ~patient is on duloxetine 7. GERD ? On PPI 8. DVT prophylaxis ~ on Eliquis 9. Physical deconditioning Was [place] [facility] to continue with rehab 10. Acute kidney injury secondary to cardiorenal syndrome - Kidney function improved with diuresis Objective: GENERAL: cooperative HEENT: Atraumatic; EYES; Anicteric, NECK; supple, normal thyroid, RESPIRATORY: Diminished to auscultation CARDIOVASCULAR: Irregular S1 S2, GI: soft, non-tender, normoactive bowel sounds, : No Renal angle tenderness; EXTREMITIES: No edema, no clubbing, MUSCULOSKELETAL: No Joint Tenderness; NEURO: Awake; no lateralizing signs. SKIN: No Rash PSYCH; flat affect - Physical Exam Vitals/I&O's: Vital Signs Temp Pulse Resp BP Pulse Ox 97.6 F L 59 L 16 111/53 L 97 08/24/19 03:15 08/24/19 03:15 08/24/19 03:15 08/24/19 03:15 08/24/19 03:15 Oxygen Flow Rate (L/min) 1 Oxygen Delivery Method Nasal Cannula Weight: 60.8 kg Body Mass Index (BMI) 25.3 Intake and Output for Last 24 Hours 08/22/19 08/23/19 08/24/19 23:59 23:59 23:59 Intake Total 200 / 440 550 / 550 Output Total 400 / 650 1700 / 1700 150 / 150 Balance -200 / -210 -1150 / -1150 -150 / -150 Microbiology Past 72 Hours 08/20/19 Unknown Urine, Catheterized Urine Culture - Final Culture exhibits no growth. Laboratory Results 08/23/19 08:27: WBC 7.3, RBC 3.47 L, Hgb 11.0 L, Hct 34.3 L, MCV 98.8, MCH 31.7, MCHC 32.1, RDW Std Deviation 56.3 H, RDW Coeff of Silvano 15.6 H, Plt Count 230, MPV 10.6, Immature Gran % (Auto) 0.400, Neut % (Auto) 65.7, Lymph % (Auto) 15.7 L, [place] % (Auto) 9.8, Eos % (Auto) 7.6 H, Baso % (Auto) 0.8, Absolute Neuts (auto) 4.8, Absolute Lymphs (auto) 1.14, Nucleated RBC % 0 08/23/19 08:27: Sodium 140, Potassium 4.0, Chloride 107, Carbon Dioxide 26.0, Anion Gap 7, BUN 18, Creatinine 1.17 H, Estim Creat Clear Calc 28.46, Est GFR (MDRD) Af Amer 57 L, Est GFR (MDRD) Non-Af 47 L, BUN/Creatinine Ratio 15.4, Glucose 117 H, Calcium 8.6, Magnesium 1.9 08/24/19 05:30: WBC 6.0, RBC 3.23 L, Hgb 10.3 L, Hct 32.3 L, MCV 100.0 H, MCH 31.9, MCHC 31.9 L, RDW Std Deviation 57.0 H, RDW Coeff of Silvano 15.4 H, Plt Count 234, MPV 11.0, Immature Gran % (Auto) 0.300, Neut % (Auto) 45.2 L, Lymph % (Auto) 30.2, [place] % (Auto) 11.7 H, Eos % (Auto) 11.1 H, Baso % (Auto) 1.5 H, Absolute Neuts (auto) 2.7, Absolute Lymphs (auto) 1.80, Nucleated RBC % 0 08/24/19 05:30: Sodium 143, Potassium 3.9, Chloride 105, Carbon Dioxide 31.0, Anion Gap 7, BUN 23 H, Creatinine 1.36 H, Estim Creat Clear Calc 24.48, Est GFR (MDRD) Af Amer 48 L, Est GFR (MDRD) Non-Af 40 L, BUN/Creatinine Ratio 16.9, Glucose 95, Calcium 8.5, Magnesium 2.0 Current Medications Acetaminophen (Tylenol) 325 mg PO Q4H PRN PRN PRN Reason: Pain Score 1-10 Last Admin: 08/23/19 20:47 Dose: 325 mg Documented by: Al Hydroxide/Mg Hydroxide (Mylanta Ii) 30 ml PO Q4H PRN PRN PRN Reason: Heartburn Amiodarone HCl (Cordarone) 200 mg PO DAILY@0800 [facility] Last Admin: 08/23/19 07:43 Dose: 200 mg Documented by: Apixaban (Eliquis) 2.5 mg PO BID [facility] Last Admin: 08/23/19 22:19 Dose: 2.5 mg Documented by: Azelastine HCl (Astelin) 1 spray NASAL BID PRN PRN PRN Reason: RUNNY NOSE Last Admin: 08/23/19 07:41 Dose: 1 spray Documented by: Calcium/Vitamin D (Os-Raymond 500mg + D) 1 tablet PO TIDCM [facility] Last Admin: 08/23/19 16:58 Dose: 1 tablet Documented by: Carvedilol (Coreg) 3.125 mg PO BID [facility] Last Admin: 08/23/19 22:16 Dose: 3.125 mg Documented by: Cholecalciferol (Vitamin D) 2,000 unit PO DAILY [facility] Last Admin: 08/23/19 07:45 Dose: 2,000 unit Documented by: Cyanocobalamin (Vitamin B12) 1,000 mcg PO DAILY [facility] Last Admin: 08/23/19 07:47 Dose: 1,000 mcg Documented by: Cyclobenzaprine HCl (Cyclobenzaprine Hcl) 5 mg PO BID [facility] Last Admin: 08/23/19 22:17 Dose: 5 mg Documented by: Docusate Sodium (Colace) 100 mg PO BID [facility] Last Admin: 08/23/19 22:17 Dose: 100 mg Documented by: Duloxetine HCl (Cymbalta) 20 mg PO QHS [facility] Last Admin: 08/23/19 22:19 Dose: 20 mg Documented by: Fluticasone Propionate (Flonase Nasal [place]) 1 spray NASAL BID PRN PRN PRN Reason: RUNNY NOSE Last Admin: 08/23/19 07:41 Dose: 1 spray Documented by: Furosemide (Lasix) 40 mg IV DAILY [facility] Last Admin: 08/23/19 07:48 Dose: 40 mg Documented by: Sodium Chloride () 250 mls @ 15 mls/hr IV .[id number] PRN PRN Reason: Saline Flush Ibuprofen (Motrin) 600 mg PO Q6H PRN PRN PRN Reason: Pain Score 1-1010 Levothyroxine Sodium (Synthroid) 50 mcg PO DAILY@0600 [facility] Last Admin: 08/24/19 05:12 Dose: 50 mcg Documented by: Memantine (Namenda) 10 mg PO BID [facility] Last Admin: 08/23/19 22:19 Dose: 10 mg Documented by: Nutritional Formula (Lactose Free) (Ensure Enlive) 120 ml PO 4X/DAY [facility] Last Admin: 08/23/19 22:19 Dose: Not Given Documented by: Oxycodone HCl (Oxyir) 5 mg PO Q4H PRN PRN PRN Reason: Pain Score 1-1010 Last Admin: 08/23/19 23:32 Dose: 5 mg Documented by: Pantoprazole Sodium (Protonix) 40 mg PO DAILY [facility] Last Admin: 08/23/19 07:47 Dose: 40 mg Documented by: Potassium Chloride (K-Dur) 20 meq PO DAILYCM [facility] Last Admin: 08/23/19 07:42 Dose: 20 meq Documented by: Sodium Chloride ([place] Nasal [place]) 1 spray NASAL TID PRN PRN PRN Reason: NASAL DRYNESS Last Admin: 08/22/19 22:35 Dose: 1 spray Documented by: Sodium Chloride () 5 - 15 ml IV UD PRN PRN Reason: SALINE FLUSH Last Admin: 08/23/19 16:58 Dose: 10 ml Documented by: Tramadol HCl (Ultram) 50 mg PO Q6H PRN PRN PRN Reason: Pain Score 4-6 Last Admin: 08/23/19 22:17 Dose: 50 mg Documented by: Discharge Diet: Light diet - advance as tolerated Discharge Activity: Return to Normal Activity Additional Activity Instructions:: f you have a catheter, remove on ___. If you have any problems after catheter is removed, call [phone] and ask for your doctor to be paged. Please be aware that pain medications may cause nausea. You should typically eat light foods as you take your pain medication. Pain medication may cause constipation, if this is a problem for you, please discuss with your doctor. Call your doctor if your incision/area has: Sudden Increased Bleeding Call your doctor if you observe: Fever of 101 or Higher Home Medications: Medications to take at Discharge Amiodarone HCl [Cordarone] 200 mg PO DAILY 10/06/18 Dymista 1 puff NASAL BID PRN PRN 10/06/18 Cyanocobalamin (Vitamin B-12) [B-12] 1,000 mcg PO DAILY 11/02/18 cyclobenzaprine 5 mg tablet 5 mg PO BID tab 05/30/19 duloxetine 20 mg capsule,delayed release 20 mg PO QHS cap 05/30/19 Apixaban [Eliquis] 2.5 mg PO BID 08/03/19 Carvedilol [Coreg (Beta Kori)] 3.125 mg PO BID 08/03/19 Sodium Chloride 0.65% [[place] Nasal [place]] 1 spray NASAL TID PRN PRN spray.btl 08/10/19 traMADol [Ultram] 50 mg PO Q6H PRN PRN tab 08/10/19 Acetaminophen [Tylenol Arthritis] 1,300 mg PO DAILY PRN PRN 08/19/19 Calcium Citrate/Vitamin D3 [Calcium Cit 315-Vit D3 200 Tab] 1 tab PO TID 08/19/19 Cholecalciferol (Vitamin D3) [D3-2000] 2,000 unit PO DAILY 08/19/19 Levothyroxine Sodium [Levoxyl] 50 mcg PO DAILY 08/19/19 Memantine Hydrochloride [Namenda] 10 mg PO BID 08/19/19 Ciprofloxacin [Cipro] 250 mg PO BID #6 tab 08/20/19 traMADol [Ultram (G)] 50 mg PO Q4H PRN PRN 5 Days #14 tab 08/20/19 Psyllium [Metamucil] 1 packet PO DAILY 08/22/19 Docusate Sodium [Colace] 100 mg PO BID cap 08/24/19 Ensure Enlive 120 ml PO 4X/DAY liquid 08/24/19 Furosemide [Lasix] 40 mg PO DAILY #30 tab 08/24/19 Mag Hydrox/Al Hydrox/Simeth [Mylanta II] 30 ml PO Q4H PRN PRN udc 08/24/19 Following Prescrptions Were Given to Patient: Ciprofloxacin [Cipro] 250 mg PO BID #6 tab Prescription Printed Furosemide [Lasix] 40 mg PO DAILY #30 tab Prescription Printed traMADol [Ultram (G)] 50 mg PO Q4H PRN PRN 5 Days #14 tab PRN Reason: Pain Score 1-10/10 Prescription Printed Primary Care Physician: Ben Loomis MD [Primary Care Provider] - Please follow up with your Primary Care Physician in: in 2-3 weeks Please Follow Up With: Ortiz Cueva MD When: please call to make an appointment. Patient Instructions: Ureteral Stents Disposition: [facility] facility Minutes spent on discharge:: 45 Patient Condition:: Stable Medical Necessity - Tobacco Use Smoking Status: Never smoker Tobacco Use: Non-smoker Meaningful Use Info Meaningful Use Diagnoses (Choose all that apply): CHF - CHF TENA/ARB ordered at discharge?: No Reason TENA/ARB not ordered?: Worsening renal disease, Hypotension Documented LVEF (%): 35 Code Visit Inpatient E&M: [id number] Disch Hosp
[2019-08-24] MEDS: Amiodarone 200 MG Tablet PO (08:18)
[2019-08-24] MEDS: Cyanocobalamin 500 MCG Tablet 1000 MCG PO (08:19)
[2019-08-24] MEDS: Docusate Sodium 100 MG Capsule PO (08:19)
[2019-08-24] MEDS: Carvedilol 3.125 MG TABLET PO (08:19)
[2019-08-24] MEDS: Calcium Carb/Vitamin D 1 TABLET Tablet PO ×2 (08:19→11:42)
[2019-08-24] MEDS: Pantoprazole Sodium 40 MG Tablet PO (08:19)
[2019-08-24] MEDS: cycloBENZAPRine HCl 5 MG TABLET PO (08:20)
[2019-08-24] MEDS: Memantine Hydrochloride 10 MG Tablet PO (08:20)
[2019-08-24] MEDS: APIXABAN 2.5 MG TABLET PO (08:21)
[2019-08-24] MEDS: 0.9% Saline Lock 10 ML Syringe IV (08:22)
[2019-08-24] MEDS: Furosemide 40 MG/4 ML Vial IV (08:22)
[2019-08-24] MEDS: Ibuprofen 600 MG Tablet PO (08:27)
[2019-08-24 08:30] VITALS: BP 113/59; PULSE 62; RESP 18; TEMP 37; O2SAT 95
--- NOTE | 2019-08-24 09:50 | CASEMGMT ---
Social Work Note Pt is still requiring oxygen ans will be going to TCU today. AIDA met with pt's Dragan and introduced self and role at [facility]. Dragan confirms that pt is weak and is still requiring oxygen so pt will be going to TCU. AIDA informed Dragan that this worker did call TCU and they are able to accept pt and the physician is discharging pt today. Dragan states understanding, denied additional needs or concerns at this time. AIDA placed a call to Renetta in TCU and left her a message informing her that pt will be discharged to TCU today. Plan: TCU today Dawn Escalante FI[employer] EQUIPMENT INSPECTOR HELPER, NURSE TECH
--- NOTE | 2019-08-24 11:12 | NURSING ---
REPORT CALLED TO TCU FOR DISCHARGE. SPOKE WITH LIZANDRO CHING.
== END 2019-08-24 12:30 | disposition skilled nursing facility (03) | DRG 659 ==
LOC: ED 12:16 → MS3 15:04
PROVIDERS: Anesthesiology; Family Medicine; Internal Medicine Critical Care Medicine; Admitting Provider Urology; Emergency Provider Emergency Medicine; Family Provider Internal Medicine; PCP Internal Medicine; Referring Provider Urology; Visit Provider Internal Medicine
PROC: 0T778DZ Dilation of Left Ureter with Intraluminal Device, Via Natural or Artificial Opening Endoscopic (ICD-10-PCS; principal; 2019-08-20 07:45)
DX: N13.2 Hydronephrosis with renal and ureteral calculous obstruction (principal); J96.01 Acute respiratory failure with hypoxia; I50.23 Acute on chronic systolic (congestive) heart failure; I13.0 Hypertensive heart and chronic kidney disease with heart failure and stage 1 through stage 4 chronic kidney disease, or unspecified chronic kidney disease; E03.9 Hypothyroidism, unspecified; I25.5 Ischemic cardiomyopathy; I35.1 Nonrheumatic aortic (valve) insufficiency; I27.21 Secondary pulmonary arterial hypertension; I48.0 Paroxysmal atrial fibrillation; I36.1 Nonrheumatic tricuspid (valve) insufficiency; Z79.01 Long term (current) use of anticoagulants; I34.0 Nonrheumatic mitral (valve) insufficiency; Z85.3 Personal history of malignant neoplasm of breast; G47.33 Obstructive sleep apnea (adult) (pediatric); N17.9 Acute kidney failure, unspecified; N18.9 Chronic kidney disease, unspecified; F01.50 Vascular dementia, unspecified severity, without behavioral disturbance, psychotic disturbance, mood disturbance, and anxiety; Z86.73 Personal history of transient ischemic attack (TIA), and cerebral infarction without residual deficits
CPT/HCPCS: 36415; 71046; 74177; 76000; 80048; 80053; 80076; 81001; 83690; 83735; 83880; 84443; 85025; 85610; 85730; 87086; 94660; 94762; 97162; 97166; 97530; 97535; 97802; 97803; 99285; J7030; P9612; Q9967; A4216; C1769; C2617; J0744; J1940; J2405

== ENCOUNTER 2019-08-24 12:30 | Inpatient (IN) | payer MEDICARE, OTHER, SELFPAY ==
[2019-08-20 08:00] VITALS: BMI 25.3
[2019-08-24 12:56] VITALS: BP 104/55; PULSE 62; RESP 14; TEMP 36.4; O2SAT 95
[2019-08-24 14:03] VITALS: BMI 24.5
[2019-08-24 14:05] VITALS: BMI 24.6
--- NOTE | 2019-08-24 15:41 | CASEMGMT ---
Social Work Explained code status with patient. Pt would like to be DNR-CCA. Notified nurse. Nayeli Reveles, [employer] SIGNAL CONSTRUCTOR
[2019-08-24 16:00] VITALS: BP 105/55; PULSE 59; RESP 18; TEMP 36.4; O2SAT 95
[2019-08-24] MEDS: Calcium Carb/Vitamin D 1 TABLET Tablet PO (18:06)
[2019-08-24] MEDS: Docusate Sodium 100 MG Capsule PO (18:06)
[2019-08-24] MEDS: Carvedilol 3.125 MG TABLET PO (18:06)
[2019-08-24] MEDS: Ciprofloxacin 250 MG Tablet PO (18:06)
[2019-08-24] MEDS: APIXABAN 2.5 MG TABLET PO (18:06)
[2019-08-24] MEDS: Memantine Hydrochloride 10 MG Tablet PO (18:07)
--- NOTE | 2019-08-24 20:47 | HP.PCM_ITS ---
Problem List (1) Left ureteral calculus Status: Acute (2) Hydroureter, left Status: Acute (3) Hydronephrosis, left Status: Acute (4) Acute on chronic systolic (congestive) heart failure Status: Acute (5) Acute hypoxemic respiratory failure Status: Acute (6) Debility Status: Acute (7) Stroke Status: Chronic (8) Atrial fibrillation Status: Chronic (9) Vascular dementia Status: Chronic (10) Expressive aphasia Status: Chronic (11) Hypothyroidism Status: Chronic (12) Muscle spasm Status: Chronic (13) Hypertension Status: Chronic History of Present Illness Date of Admission: 08/24/19 Chief Complaint: Here for rehabilitation, strengthening, prior to discharge home with . The patient is a 83 year old Female with below past medical history presented to [facility] Emergency Department 08/19/2019 with pain. 08/19/2019 CT abdomen/pelvis showed 7.7mm left ureter stone, with left hydronephrosis, left hydroureter. Left upper quadrant pain, decreased urination, constipation. Morphine, Dilaudid, Zofran, IV fluids given. Left ureteral stone. 08/19/2019 Admit to Hospital under Dr. Cueva. Pain control. Hold Eliquis. Consult medicine. 08/20/2019 Dr. Cueva performed cystoscopy, left retrograde pyelogram, manipulation of stone, left ureteral stent placement. 08/20/2019 Chest X-ray showed bilateral upper lobe ground glass opacities, concerning for congestive heart failure. 08/22/2019 Dr. Escalona recommended diuresis with IV diuretics. Wean oxygen. Nocturnal PAP therapy. 08/23/2019 systolic heart failure, EF 35%, IV Lasix, supplemental oxygen for fluid overload. 08/24/2019 Admit to TCU with debility, here for rehabilitation, strengthening, prior to discharge home with . 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) last ECHO with a 35 % EF Secondary pulmonary arterial hypertension (Chronic) Nonrheumatic aortic valve insufficiency (Chronic) Nonrheumatic mitral (valve) insufficiency (Chronic) Non-rheumatic tricuspid valve insufficiency (Chronic) Paroxysmal atrial fibrillation (Chronic) 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) Medical History: Medical History (Last Reviewed 08/19/19 @ 15:53 by Ortiz Cueva MD) Essential (primary) hypertension (Chronic) I10 History of breast cancer (Chronic) Z85.3 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) I43 last ECHO with a 35 % EF Secondary pulmonary arterial hypertension (Chronic) I27.21 Nonrheumatic aortic valve insufficiency (Chronic) I35.1 Nonrheumatic mitral (valve) insufficiency (Chronic) I34.0 Non-rheumatic tricuspid valve insufficiency (Chronic) I36.1 Paroxysmal atrial fibrillation (Chronic) I48.0 Chronic systolic (congestive) heart failure (Acute) I50.22 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) Z79.01 Hypothyroidism E03.9 Anxiety and depression F41.9, F32.9 Dementia F03.90 Expressive aphasia R47.01 Joint pain M25.50 Breast cancer C50.919 Allergies Penicillins [PCN] Allergy (Verified 07/27/19 18:16) Rash Home Medications: Ambulatory Orders Medication Instructions Recorded Amiodarone HCl [Cordarone] 200 mg PO DAILY 10/06/18 Dymista 1 puff NASAL BID PRN PRN 10/06/18 Cyanocobalamin (Vitamin B-12) 1,000 mcg PO DAILY 11/02/18 [B-12] cyclobenzaprine 5 mg tablet 5 mg PO BID tab 05/30/19 duloxetine 20 mg capsule,delayed 20 mg PO QHS cap 05/30/19 release Apixaban [Eliquis] 2.5 mg PO BID 08/03/19 Carvedilol [Coreg (Beta Kori)] 3.125 mg PO BID 08/03/19 Sodium Chloride 0.65% [[place] Nasal 1 spray NASAL TID PRN PRN 08/10/19 Ucon] spray.btl traMADol [Ultram] 50 mg PO Q6H PRN PRN tab 08/10/19 Acetaminophen [Tylenol Arthritis] 1,300 mg PO DAILY PRN PRN 08/19/19 Calcium Citrate/Vitamin D3 1 tab PO TID 08/19/19 [Calcium Cit 315-Vit D3 200 Tab] Cholecalciferol (Vitamin D3) 2,000 unit PO DAILY 08/19/19 [D3-2000] Levothyroxine Sodium [Levoxyl] 50 mcg PO DAILY 08/19/19 Memantine Hydrochloride [Namenda] 10 mg PO BID 08/19/19 traMADol [Ultram (G)] 50 mg PO Q4H PRN PRN 5 Days #14 tab 08/20/19 Psyllium [Metamucil] 1 packet PO DAILY 08/22/19 Ciprofloxacin [Cipro] 250 mg PO BID 08/24/19 Docusate Sodium [Colace] 100 mg PO BID 08/24/19 Ensure Enlive 120 ml PO 4X/DAY 08/24/19 Furosemide [Lasix] 40 mg PO DAILY 08/24/19 Mag Hydrox/Al Hydrox/Simeth 30 ml PO Q4H PRN PRN udc 08/24/19 [Mylanta II] Surgical History: Surgical History (Last Reviewed 08/19/19 @ 15:53 by Ortiz Cueva MD) H/O right mastectomy Z90.11 Surgical History: appendectomy, cataract, mastectomy - Right., - - Lumpectomy, tubal ligation, right breast mass biopsy. 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 Lives: Spouse/ Significant Other Smoking Status: Never smoker Tobacco Use: Non-smoker Alcohol: None Drugs: None - *Family History Maternal Family History: Family History (Last Reviewed 08/19/19 @ 15:53 by Ortiz Cueva MD) Grandmother Diabetes History Items: No pertinent history Paternal Family History: Family History (Last Reviewed 08/19/19 @ 15:53 by Ortiz Cueva MD) Grandmother Diabetes History Items: No pertinent history Review of Systems Constitutional: Denies: Chills, Fever, Weight Change HEENT: Denies: Head Aches, Sinus Congestion, Sinus Drainage Cardiovascular: Denies: Chest Pain, Palpitations Respiratory: Denies: Cough, Shortness of breath at rest, Sputum production Gastrointestinal: Denies: Abdominal Pain, Nausea, Vomiting Genitourinary: Denies: Dysuria Musculoskeletal: Denies: Joint Pain, Joint Tenderness Skin: Denies: Rash, Wounds Neurological: Denies: Numbness, Tingling, Focal weakness Psychiatric: Denies: Anxiety, Depression, Homicidal Ideations, Suicidal Ideations Hematologic/ Lymphatic: Denies: Easy Bruising, Easy Bleeding VTE Information - Inpt Only VTE Present on Admission: No VTE Mechan Device Prophylaxis: Knee High CRISTIAN Hose VTE Pharm Prophylaxis ordered?: No Reason prophylaxis not ordered:: Treatment Not Indicated Patient Problems: Active and Suspected Problems (Last Reviewed 08/19/19 @ 15:53 by Ortiz Cueva MD) Left ureteral calculus (Acute) Hydroureter, left (Acute) Hydronephrosis, left (Acute) Acute on chronic systolic (congestive) heart failure (Acute) Acute hypoxemic respiratory failure (Acute) - Physical Exam Vitals/I&O's: Vital Signs Temp Pulse Resp BP Pulse Ox 97.5 F L 59 L 18 105/55 L 95 08/24/19 16:00 08/24/19 16:00 08/24/19 16:00 08/24/19 16:00 08/24/19 16:00 Oxygen Flow Rate (L/min) 1 Oxygen Delivery Method Room Air Weight: 59 kg Body Mass Index (BMI) 24.5 Intake and Output for Last 24 Hours 08/22/19 08/23/19 08/24/19 23:59 23:59 23:59 Intake Total 360 / 360 Balance 360 / 360 General: Alert, Oriented x3, Cooperative HEENT: Atraumatic, PERRLA, EOMI, Normocephalic Neck: Supple, No JVD, Negative Carotid Bruits Lungs: Clear to auscultation, Normal air movement Cardiovascular: Regular rate, No murmurs Abdomen: Bowel Sounds Present, Soft, Non Tender Extremities: No edema, Capillary Refill Less than 3 Seconds Skin: No rashes, No breakdown Musculoskeletal: No Tenderness to Palpation of Joints or Extremities Neurological: Cranial nerves II-XII grossly intact Psych/Mental Status: Normal Affect, Appropriate Current Medications Acetaminophen (Tylenol) 1,000 mg PO DAILY PRN PRN Reason: PAIN/FEVER Al Hydroxide/Mg Hydroxide (Mylanta Ii) 30 ml PO Q4H PRN PRN PRN Reason: Heartburn Amiodarone HCl (Cordarone) 200 mg PO DAILY [facility] Apixaban (Eliquis) 2.5 mg PO BID [facility] Last Admin: 08/24/19 18:06 Dose: 2.5 mg Documented by: Azelastine HCl (Astelin) 1 spray NASAL BID PRN PRN Reason: RUNNY NOSE Calamine/Phenol (Calmoseptine Ointment) 1 applic TOPICAL 0600,2200 [facility]; Protocol Calcium/Vitamin D (Os-Raymond 500mg + D) 1 tablet PO TIDCM [facility] Last Admin: 08/24/19 18:06 Dose: 1 tablet Documented by: Carvedilol (Coreg) 3.125 mg PO BID [facility] Last Admin: 08/24/19 18:06 Dose: 3.125 mg Documented by: Cholecalciferol (Vitamin D) 2,000 unit PO DAILY [facility] Ciprofloxacin HCl (Cipro) 250 mg PO BID [facility] Stop: 08/30/19 18:01 Last Admin: 08/24/19 18:06 Dose: 250 mg Documented by: Cyanocobalamin (Vitamin B12) 1,000 mcg PO DAILY [facility] Cyclobenzaprine HCl (Cyclobenzaprine Hcl) 5 mg PO BID [facility] Docusate Sodium (Colace) 100 mg PO BID [facility] Last Admin: 08/24/19 18:06 Dose: 100 mg Documented by: Duloxetine HCl (Cymbalta) 20 mg PO QHS [facility] Fluticasone Propionate (Flonase Nasal Ucon) 1 spray NASAL BID PRN PRN Reason: RUNNY NOSE Furosemide (Lasix) 40 mg PO DAILY [facility] Influenza Virus Vaccine Quadrival (Flucelvax /Fluzone [id number]) 0.5 ml IM .ONCE ONE Stop: 08/25/19 10:01 Levothyroxine Sodium (Synthroid) 50 mcg PO DAILY@0600 [facility] Memantine (Namenda) 10 mg PO BID [facility] Last Admin: 08/24/19 18:07 Dose: 10 mg Documented by: Nutritional Formula (Lactose Free) (Ensure Enlive) 120 ml PO 4X/DAY [facility] Last Admin: 08/24/19 18:06 Dose: 120 ml Documented by: Psyllium Hydrophilic Mucilloid (Metamucil) 1 packet PO DAILY [facility] Sodium Chloride ([place] Nasal Ucon) 1 spray NASAL TID PRN PRN PRN Reason: NASAL DRYNESS Tramadol HCl (Ultram) 50 mg PO Q6H PRN PRN PRN Reason: Pain Score 4-6 Assessment/Plan All Active Problems (Last Reviewed 08/19/19 @ 15:53 by Ortiz Cueva MD) Debility (Acute) Acute on chronic systolic heart failure (Acute) Hypotension (Acute) Left ureteral calculus (Acute) Hydroureter, left (Acute) Hydronephrosis, left (Acute) Acute on chronic systolic (congestive) heart failure (Acute) Acute hypoxemic respiratory failure (Acute) HFrEF (heart failure with reduced ejection fraction) (Acute) Weakness (Acute) Chronic systolic (congestive) heart failure (Acute) 83 year old female with below past medical history hospitalized for left u reteral stone, underwent left ureteral stent placement 08/20/[address] Cueva, complicated by acute hypoxemic respiratory failure secondary to acute on chronic systolic congestive heart failure from fluid overload, admitted to TCU with debility, here for rehabilitation, strengthening, prior to discharge home with . * Debility - PT/OT. * Pain - Tylenol 1000MG Q6H PRN pain (1-3), Tramadol 50MG Q6H PRN pain (4-10) * Bowel - Miralax 17GM daily, Senna/colace 2 tablets BID, Dulcolax 10MG daily PRN. * Adult immunization - Administer Prevnar 13 and/or Pneumovax 23 as necessary, Flushot given. * DVT prophylaxis - Not necessary, already on Eliquis. * Atrial Fibrillation - Coreg 3.125MG BID, Amiodarone 200MG daily, Eliquis 2.5MG BID. * Allergic rhinitis - Astelin 1 spray nasal BID PRN, Flonase 1 spray nasal BID PRN, [place] Nasal spray 1 spray nasal TID PRN. * Calcium deficiency - Calcium D 1 tablet TID. * Vitamin D deficiency - Vitamin D3 2000IU daily. * Left ureteral stone status post left ureteral stent placement - Cipro 250MG twice daily thru 08/30/2019 for post procedure prophylaxis. * Vitamin B12 deficiency - B12 1000MCG daily. * Muscle spasm - Flexeril 5MG BID. * Depression - Duloxetine 20MG QHS. * Nutrition - Ensure Enlive 120ML 4x/day. * Acute on chronic systolic congestive heart failure - Coreg 3.125MG BID, Lasix 40MG daily. * Hypothyroidism - Levothyroxine 50MCG daily. * Vascular dementia - Memantine 10MG BID. * Skin irritation - Calmoseptine BID.
[2019-08-24] MEDS: DULoxetine Hcl 20 MG Capsule PO (21:10)
[2019-08-24] MEDS: Menthol/Lanolin/Calamine/Znox 113 GM Tube 1 APPLIC TOPICAL (21:14)
[2019-08-24] MEDS: cycloBENZAPRine HCl 5 MG TABLET PO (21:15)
[2019-08-24] MEDS: Acetaminophen 500 MG Tablet 1000 MG PO (21:17)
[2019-08-24] MEDS: traMADol 50 MG Tablet PO (22:50)
[2019-08-25] MEDS: Carvedilol 3.125 MG TABLET PO ×2 (05:03→16:30)
[2019-08-25] MEDS: Ciprofloxacin 250 MG Tablet PO ×2 (05:03→16:30)
[2019-08-25] MEDS: Polyethylene Glycol 3350 17 GM PACKET PO (05:03)
[2019-08-25] MEDS: APIXABAN 2.5 MG TABLET PO ×2 (05:03→16:30)
[2019-08-25] MEDS: Furosemide 40 MG Tablet PO (05:03)
[2019-08-25] MEDS: Amiodarone 200 MG Tablet PO (05:03)
[2019-08-25] MEDS: Memantine Hydrochloride 10 MG Tablet PO ×2 (05:03→16:30)
[2019-08-25] MEDS: Levothyroxine 50 MCG Tablet PO (05:03)
[2019-08-25] MEDS: Cyanocobalamin 500 MCG Tablet 1000 MCG PO (05:03)
[2019-08-25] MEDS: Menthol/Lanolin/Calamine/Znox 113 GM Tube 1 APPLIC TOPICAL ×2 (05:04→20:15)
[2019-08-25] MEDS: Senna/Docusate Sodium 1 Tablet 2 TABLET PO ×2 (05:04→16:30)
[2019-08-25] MEDS: Acetaminophen 500 MG Tablet 1000 MG PO ×3 (05:10→20:14)
[2019-08-25 05:51] LABS: Absolute Lymphocyte Count 1.65 X10^3/uL (0.83-4.51); Absolute Neutrophil Count 2.5 X10^3/uL (2.0-7.7); Basophil# 0.08 X10^3/uL; Basophil% 1.4 % (0-1); Eosinophils% 12.5 % (0-5); Hematocrit 31.5 % (37-47); Lymphocyte # 1.65 X10^3/ul (4.0); Lymphocyte % 29.5 % (19-41); Mean Corp Hgb Conc 31.7 g/dL (32-36); Mean Corpuscular Hgb 31.6 pg (27.0-32.0); Mean Corpuscular Volume 99.7 fL (81-99); Mean Platelet Vol. 10.9 fl (6.2-12.0); Monocyte# 0.69 X10^3/uL; Monocyte% 12.3 % (0-10); NRBC Flagged by Analyzer 0 % (0-5); Neutrophil # 2.46 X10^3/uL (2.7-7.7); Neutrophil % 43.9 % (47-70); Platelet Count 253 K/mm3 (150-450); RBC Distribution Width CV 15.6 % (11.6-14.6); RBC Distribution Width SD 57.1 fl (35.1-43.9); Red Blood Count 3.16 M/mm3 (4.2-5.4); White Blood Count 5.6 K/mm3 (4.4-11.0)
[2019-08-25] MEDS: cycloBENZAPRine HCl 5 MG TABLET PO ×2 (05:51→16:30)
[2019-08-25] MEDS: traMADol 50 MG Tablet PO ×3 (05:51→20:14)
[2019-08-25 06:07] LABS: Anion Gap 6 (5-15); BUN 32 mg/dL (7-18); BUN/Creat Ratio 20.9 RATIO (10-20); Calcium,Total 8.7 mg/dL (8.5-10.1); Chloride 105 mmol/L (98-107); Creatinine, Serum 1.53 mg/dL (0.55-1.02); EST Glomerular Filtration Rate 35 mL/min (>60); Est Glom Filt Rate - Afr Amer 42 mL/min (>60); Estimated Creatinine Clearance 21.76 ml/min; Glucose 101 mg/dL (74-106); Sodium Level 140 mmol/L (136-145)
[2019-08-25] MEDS: Calcium Carb/Vitamin D 1 TABLET Tablet PO ×3 (08:30→16:30)
--- NOTE | 2019-08-25 09:28 | NURSING ---
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 oxygen decreased to 1 liter 93%, 90% on RA. pt and would like oxygen weaned. Will try removing tomorrow. kpad helpful for pain. Original Note: pt noted to have large clots in toilet after voiding. pt c/o pain states where my stent is Message left with dr Cueva office awaiting return call. would like to speak with kit.
[2019-08-25 15:21] VITALS: BP 111/39; PULSE 55; RESP 20; TEMP 36.7; O2SAT 97
[2019-08-25 18:39] VITALS: PULSE 86; RESP 18; O2SAT 93
[2019-08-25] MEDS: Sodium Chloride 0.65% 1 SPRAY SPRAY.BTL NASAL (20:14)
[2019-08-25] MEDS: DULoxetine Hcl 20 MG Capsule PO (20:15)
[2019-08-26] MEDS: Polyethylene Glycol 3350 17 GM PACKET PO (05:07)
[2019-08-26] MEDS: Furosemide 40 MG Tablet PO (05:09)
[2019-08-26] MEDS: Memantine Hydrochloride 10 MG Tablet PO ×2 (05:09→17:59)
[2019-08-26] MEDS: Cyanocobalamin 500 MCG Tablet 1000 MCG PO (05:09)
[2019-08-26] MEDS: cycloBENZAPRine HCl 5 MG TABLET PO ×2 (05:09→17:59)
[2019-08-26] MEDS: Carvedilol 3.125 MG TABLET PO ×2 (05:10→17:59)
[2019-08-26] MEDS: APIXABAN 2.5 MG TABLET PO ×2 (05:10→17:59)
[2019-08-26] MEDS: Levothyroxine 50 MCG Tablet PO (05:10)
[2019-08-26] MEDS: Menthol/Lanolin/Calamine/Znox 113 GM Tube 1 APPLIC TOPICAL ×2 (05:10→20:17)
[2019-08-26] MEDS: Amiodarone 200 MG Tablet PO (05:10)
[2019-08-26] MEDS: Ciprofloxacin 250 MG Tablet PO ×2 (05:10→17:59)
[2019-08-26] MEDS: Senna/Docusate Sodium 1 Tablet 2 TABLET PO ×2 (05:11→17:58)
[2019-08-26] MEDS: Calcium Carb/Vitamin D 1 TABLET Tablet PO ×3 (08:44→17:59)
[2019-08-26] MEDS: Acetaminophen 500 MG Tablet 1000 MG PO ×2 (09:23→20:25)
[2019-08-26] MEDS: traMADol 50 MG Tablet PO ×2 (11:06→22:31)
--- NOTE | 2019-08-26 11:33 | RAD_ITS ---
STUDY: X-RAY - ABDOMEN/PELVIS REASON FOR EXAM: Female, 83 years old. Blood in urine. TECHNIQUE: Single AP view of the abdomen / pelvis. COMPARISON: None. FINDINGS: Lung base is not included in the [id number]. There is increased fecal debris within the colon consistent with constipation. There is no demonstrated free abdominal air. There is a left-sided ureteral stent in place. There is a calcific structure along the proximal left ureter measuring approximately 6.3 mm. Remainder of the visualized liver, spleen and kidneys are grossly normal in size and morphology. Normal soft tissue structures. Degenerative disease of the spine and bilateral hips noted. RAD/Abdomen Single View IMPRESSION: Constipation. Left-sided ureteral stent with calcification possible stone along the proximal aspect of the left ureter. Electronically Signed: Jess Sethi MD at 0:25 EDT , Service support ,
--- NOTE | 2019-08-26 11:34 | PCM.CONS.U ---
Reason for Consult Date of Consultation: 08/26/19 Reason for Consultation: Kidney stone status post stent placement. History of Present Illness: The patient is a 83 year old female with a history of congestive heart failure presented to the hospital with obstructing stone she underwent a cystoscopy and stent placement only with EMMA fernandez. Prior to the procedure she was on room air with no problems after the procedure she required oxygen went into congestive heart failure requiring diuresis was transferred to the transitional care unit for further care plan to do a KUB today to evaluate the stone location. She still on oxygen now. She also takes a blood thinner for history of pulmonary embolism. She is clinically stable she does have some blood in the urine this is from the stent and also from being on blood thinners this is normal and expected. 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) last ECHO with a 35 % EF Secondary pulmonary arterial hypertension (Chronic) Nonrheumatic aortic valve insufficiency (Chronic) Nonrheumatic mitral (valve) insufficiency (Chronic) Non-rheumatic tricuspid valve insufficiency (Chronic) Paroxysmal atrial fibrillation (Chronic) 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 (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) Medical History: Medical History (Last Reviewed 08/19/19 @ 15:53 by Ortiz Cueva MD) Essential (primary) hypertension (Chronic) I10 History of breast cancer (Chronic) Z85.3 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) I43 last ECHO with a 35 % EF Secondary pulmonary arterial hypertension (Chronic) I27.21 Nonrheumatic aortic valve insufficiency (Chronic) I35.1 Nonrheumatic mitral (valve) insufficiency (Chronic) I34.0 Non-rheumatic tricuspid valve insufficiency (Chronic) I36.1 Paroxysmal atrial fibrillation (Chronic) I48.0 Chronic systolic (congestive) heart failure (Acute) 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) Z79.01 Hypothyroidism E03.9 Anxiety and depression F41.9, F32.9 Dementia F03.90 Expressive aphasia R47.01 Joint pain M25.50 Breast cancer C50.919 Allergies Penicillins [PCN] Allergy (Verified 07/27/19 18:16) Rash Home Medications: Ambulatory Orders Medication Instructions Recorded Amiodarone HCl [Cordarone] 200 mg PO DAILY 10/06/18 Dymista 1 puff NASAL BID PRN PRN 10/06/18 Cyanocobalamin (Vitamin B-12) 1,000 mcg PO DAILY 11/02/18 [B-12] cyclobenzaprine 5 mg tablet 5 mg PO BID tab 05/30/19 duloxetine 20 mg capsule,delayed 20 mg PO QHS cap 05/30/19 release Apixaban [Eliquis] 2.5 mg PO BID 08/03/19 Carvedilol [Coreg (Beta Kori)] 3.125 mg PO BID 08/03/19 Sodium Chloride 0.65% [[place] Nasal 1 spray NASAL TID PRN PRN 08/10/19 [place]] spray.btl traMADol [Ultram] 50 mg PO Q6H PRN PRN tab 08/10/19 Acetaminophen [Tylenol Arthritis] 1,300 mg PO DAILY PRN PRN 08/19/19 Calcium Citrate/Vitamin D3 1 tab PO TID 08/19/19 [Calcium Cit 315-Vit D3 200 Tab] Cholecalciferol (Vitamin D3) 2,000 unit PO DAILY 08/19/19 [D3-2000] Levothyroxine Sodium [Levoxyl] 50 mcg PO DAILY 08/19/19 Memantine Hydrochloride [Namenda] 10 mg PO BID 08/19/19 traMADol [Ultram (G)] 50 mg PO Q4H PRN PRN 5 Days #14 tab 08/20/19 Psyllium [Metamucil] 1 packet PO DAILY 08/22/19 Ciprofloxacin [Cipro] 250 mg PO BID 08/24/19 Docusate Sodium [Colace] 100 mg PO BID 08/24/19 Ensure Enlive 120 ml PO 4X/DAY 08/24/19 Furosemide [Lasix] 40 mg PO DAILY 08/24/19 Mag Hydrox/Al Hydrox/Simeth 30 ml PO Q4H PRN PRN udc 08/24/19 [Mylanta II] Surgical History: Surgical History (Last Reviewed 08/19/19 @ 15:53 by Ortiz Cueva MD) H/O right mastectomy Z90.11 Surgical History: appendectomy, cataract, mastectomy - Right., - - Lumpectomy, tubal ligation, right breast mass biopsy. 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 Lives: Spouse/ Significant Other Smoking Status: Never smoker Tobacco Use: Non-smoker Alcohol: None Drugs: None - *Family History Maternal Family History: Family History (Last Reviewed 08/19/19 @ 15:53 by Ortiz Cueva MD) Grandmother Diabetes History Items: No pertinent history Paternal Family History: Family History (Last Reviewed 08/19/19 @ 15:53 by Ortiz Cueva MD) Grandmother Diabetes History Items: No pertinent history Review of Systems Constitutional: Denies: Chills, Fever, Weight Change HEENT: Denies: Head Aches, Sinus Congestion, Sinus Drainage Cardiovascular: Denies: Chest Pain, Palpitations Respiratory: Reports: Shortness of Breath. Denies: Cough, Sputum production Gastrointestinal: Denies: Abdominal Pain, Nausea, Vomiting Genitourinary: Denies: Dysuria Musculoskeletal: Denies: Joint Pain, Joint Tenderness Skin: Denies: Rash, Wounds Neurological: Denies: Numbness, Tingling, Focal weakness Psychiatric: Denies: Anxiety, Depression, Homicidal Ideations, Suicidal Ideations Hematologic/ Lymphatic: Denies: Easy Bruising, Easy Bleeding Physical Exam - Physical Exam Vital Signs Temp 98.0 F 08/25/19 15:21 Pulse 86 08/25/19 18:39 Resp 18 08/25/19 18:39 BP 111/39 L 08/25/19 15:21 Pulse Ox 93 08/25/19 18:39 Intake & Output 08/24/19 08/25/19 08/26/19 23:59 23:59 23:59 Intake Total 360 / 360 710 / 710 240 / 240 Balance 360 / 360 710 / 710 240 / 240 Weight: 59 kg 59 kg Intake: Oral 360 / 360 710 / 710 240 / 240 Other: Incontinent Amount Moderate General: Alert, Oriented x3 HEENT: Atraumatic Oral: Moist Mucosa Lungs: Using Accessory Muscles Cardiovascular: Regular rate Abdomen: Soft Assessment/Plan All Active Problems (Last Reviewed 08/19/19 @ 15:53 by Ortiz Cueva MD) Debility (Acute) Acute on chronic systolic heart failure (Acute) Hypotension (Acute) Left ureteral calculus (Acute) Hydroureter, left (Acute) Hydronephrosis, left (Acute) Acute on chronic systolic (congestive) heart failure (Acute) Acute hypoxemic respiratory failure (Acute) HFrEF (heart failure with reduced ejection fraction) (Acute) Weakness (Acute) Chronic systolic (congestive) heart failure (Acute) 83-year-old female with multiple medical problems including pulmonary embolism congestive heart failure recent stent for obstructing stone we are waiting for her to get better to improve her clinical status to stabilize we will get a KUB today I anticipate probably in 2 weeks to put on the schedule for shockwave lithotripsy or ureteroscopy depending on the finding the KUB. She will need to be off her blood thinners for the procedure 2 days before the procedure I will have my office arrange this.
--- NOTE | 2019-08-26 15:01 | PHA.CONS_ITS ---
<FedericaArthur worthyi - Last Filed: 08/26/19 15:01> Progress Note - Pharmacy Subjective: TCU Admission Objective: Allergies Penicillins [PCN] Allergy (Verified 07/27/19 18:16) Rash Current Medications Generic Name Dose Route Start Last Admin Trade Name Freq PRN Reason Stop Dose Admin Acetaminophen 1,000 mg 08/24/19 21:10 08/26/19 09:23 Tylenol PO 1,000 mg Q6H PRN PRN Administration Pain Score 1-3/10 Amiodarone HCl 200 mg 08/25/19 06:00 08/26/19 05:10 Cordarone PO 200 mg DAILY YARY Administration Apixaban 2.5 mg 08/24/19 18:00 08/26/19 05:10 Eliquis PO 2.5 mg BID YARY Administration Azelastine HCl 1 spray 08/24/19 18:00 Astelin NASAL BID PRN RUNNY NOSE Bisacodyl 10 mg 08/24/19 21:10 Dulcolax PO DAILY PRN Constipation Calamine/Phenol 1 applic 08/24/19 22:00 08/26/19 05:10 Calmoseptine Ointment TOPICAL 1 applicatio 0600,2200 YARY Administration Protocol Calcium/Vitamin D 1 tablet 08/24/19 17:45 08/26/19 11:08 Os-Raymond 500mg + D PO 1 tablet TIDCM YARY Administration Carvedilol 3.125 mg 08/24/19 18:00 08/26/19 05:10 Coreg PO 3.125 mg BID YARY Administration Cholecalciferol 2,000 unit 08/25/19 06:00 08/26/19 05:09 Vitamin D PO 2,000 unit DAILY YARY Administration Ciprofloxacin HCl 250 mg 08/24/19 18:00 08/26/19 05:10 Cipro PO 08/30/19 18:01 250 mg BID YARY Administration Cyanocobalamin 1,000 mcg 08/25/19 06:00 08/26/19 05:09 Vitamin B12 PO 1,000 mcg DAILY YARY Administration Cyclobenzaprine HCl 5 mg 08/24/19 18:00 08/26/19 05:09 Cyclobenzaprine Hcl PO 5 mg BID YARY Administration Duloxetine HCl 20 mg 08/24/19 22:00 08/25/19 20:15 Cymbalta PO 20 mg QHS YARY Administration Fluticasone Propionate 1 spray 08/24/19 13:37 Flonase Nasal [place] NASAL BID PRN RUNNY NOSE Furosemide 40 mg 08/25/19 06:00 08/26/19 05:09 Lasix PO 40 mg DAILY YARY Administration Levothyroxine Sodium 50 mcg 08/25/19 06:00 08/26/19 05:10 Synthroid PO 50 mcg DAILY@0600 YARY Administration Memantine 10 mg 08/24/19 18:00 08/26/19 05:09 Namenda PO 10 mg BID YARY Administration Nutritional Formula (Lactose Free) 120 ml 08/24/19 17:00 08/26/19 11:08 Ensure Enlive PO 120 ml 4X/DAY YARY Administration Polyethylene Glycol 17 gm 08/25/19 06:00 08/26/19 05:07 Miralax PO 17 gm DAILY YARY Administration Senna/Docusate Sodium 2 tablet 08/25/19 06:00 08/26/19 05:11 Senokot-S, [place]-Colace PO 2 tablet BID YARY Administration Sodium Chloride 1 spray 08/24/19 13:13 08/25/19 20:14 [place] Nasal [place] NASAL 1 spray TID PRN PRN Administration NASAL DRYNESS Tramadol HCl 50 mg 08/24/19 13:13 08/26/19 11:06 Ultram PO 50 mg Q6H PRN PRN Administration Pain Score 4-10/10 Problem List (Last Reviewed 08/19/19 @ 15:53 by Ortiz Cueva MD) Left ureteral calculus (Acute) Hydroureter, left (Acute) Hydronephrosis, left (Acute) Acute on chronic systolic (congestive) heart failure (Acute) Acute hypoxemic respiratory failure (Acute) Vital Signs Temp Pulse Resp BP Pulse Ox 98.0 F 86 18 111/39 L 93 08/25/19 15:21 08/25/19 18:39 08/25/19 18:39 08/25/19 15:21 08/25/19 18:39 Oxygen Flow Rate (L/min) 1.5 Oxygen Delivery Method Room Air Weight: 59 kg Body Mass Index (BMI) 24.5 Sodium 140 mmol/L (136-145) 08/25/19 05:15 Potassium 4.0 mmol/L (3.5-5.1) 08/25/19 05:15 Chloride 105 mmol/L (98-107) 08/25/19 05:15 Carbon Dioxide 29.0 mmol/L (21.0-32.0) 08/25/19 05:15 Anion Gap 6 (5-15) 08/25/19 05:15 BUN 32 mg/dL (7-18) H 08/25/19 05:15 Creatinine 1.53 mg/dL (0.55-1.02) H 08/25/19 05:15 Est GFR (MDRD) Af Amer 42 mL/min (>60) L 08/25/19 05:15 Est GFR (MDRD) Non-Af 35 mL/min (>60) L 08/25/19 05:15 BUN/Creatinine Ratio 20.9 RATIO (10-20) H 08/25/19 05:15 Glucose 101 mg/dL (74-106) 08/25/19 05:15 Assessment/Plan: 1. Pain: acetaminophen 1000mg PO Q6H PRN pain (1-01/09) and tramadol 50mg PO Q6H PRN pain (-08/11). Please continue to monitor for pain, PRN usage and renal function. Tramadol dose appropriate based on CrCl 21.8 mL/min (<200mg/day). 2. Left ureteral stone s/p left ureteral stent placement: ciprofloxacin 250mg PO BID thru 08/30/19 for post exposure prophylaxis. Please continue to monitor for S/S of infection. 3. Vascular dementia: memantine 10mg PO BID. Please continue to monitor for confusion. *4. Acute on chronic systolic congestive heart failure: carvedilol 3.125mg PO BID, furosemide 40mg PO daily. Please consider adding hold parameters to carvedilol. Patient had heart rate of 55 bpm yesterday. Please continue to monitor BP, HR, electrolytes, and renal function. Thanks. 5. Atrial fibrillation: carvedilol 3.125mg PO BID, amiodarone 200mg PO daily, apixaban 2.5mg PO BID. Please continue to monitor electrolytes, QTc, S/S of bleeding, renal function and platelets. 6. Hypothyroidism: levothyroxine 50mcg PO daily. TSH within the past year in chart. Please continue to monitor for S/S hypo/hyperthyroidism. 7. Muscle spasm: cyclobenzaprine 5mg PO BID. Please continue to monitor for fatigue, dizziness, and anticholinergic side effects. 8. Allergic rhinitis: Astelin 1 spray nasally BID PRN runny nose, Flonase 1 spray nasally BID PRN runny nose, [place] nasal spray 1 spray nasally TID PRN nasal dryness. Please continue to monitor for allergy symptoms. *8. Vitamin deficiencies: calcium/vitamin D 1 T PO TIDCM, cholecalciferol 2000unit PO daily, cyanocobalamin 1000mcg PO daily. Please consider ordering a Vitamin D level now and then annually as clinically appropriate. Vitamin B12 level within the past year is in the chart. Please continue to monitor calcium levels. Thanks. Psychotropic Medications: 1. Depression: duloxetine 20mg PO QHS. Please consider GDR by 02/2020 if clinically appropriate. Unnecessary Medications: None Bowel Regimen: Miralax 17gm PO daily, senna/docusate 2T PO BID, bisacodyl 10mg PO daily PRN constipation. Please continue to monitor for constipation. Date of Note:: 08/26/19 - Provider Comments Provider responsibility: Provider responsible to enter orders to implement recommendations <Karl Cortes Chi - Last Filed: 08/26/19 16:06> Progress Note - Pharmacy Subjective: [] Objective: Allergies Penicillins [PCN] Allergy (Verified 07/27/19 18:16) Rash Current Medications Generic Name Dose Route Start Last Admin Trade Name Freq PRN Reason Stop Dose Admin Acetaminophen 1,000 mg 08/24/19 21:10 08/26/19 09:23 Tylenol PO 1,000 mg Q6H PRN PRN Administration Pain Score 1-3/10 Amiodarone HCl 200 mg 08/25/19 06:00 08/26/19 05:10 Cordarone PO 200 mg DAILY YARY Administration Apixaban 2.5 mg 08/24/19 18:00 08/26/19 05:10 Eliquis PO 2.5 mg BID YARY Administration Azelastine HCl 1 spray 08/24/19 18:00 Astelin NASAL BID PRN RUNNY NOSE Bisacodyl 10 mg 08/24/19 21:10 Dulcolax PO DAILY PRN Constipation Calamine/Phenol 1 applic 08/24/19 22:00 08/26/19 05:10 Calmoseptine Ointment TOPICAL 1 applicatio 0600,2200 YARY Administration Protocol Calcium/Vitamin D 1 tablet 08/24/19 17:45 08/26/19 11:08 Os-[place] 500mg + D PO 1 tablet TIDCM YARY Administration Carvedilol 3.125 mg 08/24/19 18:00 08/26/19 05:10 Coreg PO 3.125 mg BID YARY Administration Cholecalciferol 2,000 unit 08/25/19 06:00 08/26/19 05:09 Vitamin D PO 2,000 unit DAILY YARY Administration Ciprofloxacin HCl 250 mg 08/24/19 18:00 08/26/19 05:10 Cipro PO 08/30/19 18:01 250 mg BID YARY Administration Cyanocobalamin 1,000 mcg 08/25/19 06:00 08/26/19 05:09 Vitamin B12 PO 1,000 mcg DAILY YARY Administration Cyclobenzaprine HCl 5 mg 08/24/19 18:00 08/26/19 05:09 Cyclobenzaprine Hcl PO 5 mg BID YARY Administration Duloxetine HCl 20 mg 08/24/19 22:00 08/25/19 20:15 Cymbalta PO 20 mg QHS YARY Administration Fluticasone Propionate 1 spray 08/24/19 13:37 Flonase Nasal [place] NASAL BID PRN RUNNY NOSE Furosemide 40 mg 08/25/19 06:00 08/26/19 05:09 Lasix PO 40 mg DAILY YARY Administration Levothyroxine Sodium 50 mcg 08/25/19 06:00 08/26/19 05:10 Synthroid PO 50 mcg DAILY@0600 YARY Administration Memantine 10 mg 08/24/19 18:00 08/26/19 05:09 Namenda PO 10 mg BID YARY Administration Nutritional Formula (Lactose Free) 120 ml 08/24/19 17:00 08/26/19 11:08 Ensure Enlive PO 120 ml 4X/DAY YARY Administration Polyethylene Glycol 17 gm 08/25/19 06:00 08/26/19 05:07 Miralax PO 17 gm DAILY YARY Administration Senna/Docusate Sodium 2 tablet 08/25/19 06:00 08/26/19 05:11 Senokot-S, [place]-Colace PO 2 tablet BID YARY Administration Sodium Chloride 1 spray 08/24/19 13:13 08/25/19 20:14 [place] Nasal [place] NASAL 1 spray TID PRN PRN Administration NASAL DRYNESS Tramadol HCl 50 mg 08/24/19 13:13 08/26/19 11:06 Ultram PO 50 mg Q6H PRN PRN Administration Pain Score 4-10/10 Problem List (Last Reviewed 08/19/19 @ 15:53 by Ortiz Cueva MD) Left ureteral calculus (Acute) Hydroureter, left (Acute) Hydronephrosis, left (Acute) Acute on chronic systolic (congestive) heart failure (Acute) Acute hypoxemic respiratory failure (Acute) Vital Signs Temp Pulse Resp BP Pulse Ox 98.0 F 60 18 106/40 L 91 08/26/19 15:26 08/26/19 15:26 08/26/19 15:26 08/26/19 15:26 08/26/19 15:26 Oxygen Flow Rate (L/min) 1.5 Oxygen Delivery Method Room Air Weight: 59 kg Body Mass Index (BMI) 24.5 Sodium 140 mmol/L (136-145) 08/25/19 05:15 Potassium 4.0 mmol/L (3.5-5.1) 08/25/19 05:15 Chloride 105 mmol/L (98-107) 08/25/19 05:15 Carbon Dioxide 29.0 mmol/L (21.0-32.0) 08/25/19 05:15 Anion Gap 6 (5-15) 08/25/19 05:15 BUN 32 mg/dL (7-18) H 08/25/19 05:15 Creatinine 1.53 mg/dL (0.55-1.02) H 08/25/19 05:15 Est GFR (MDRD) Af Amer 42 mL/min (>60) L 08/25/19 05:15 Est GFR (MDRD) Non-Af 35 mL/min (>60) L 08/25/19 05:15 BUN/Creatinine Ratio 20.9 RATIO (10-20) H 08/25/19 05:15 Glucose 101 mg/dL (74-106) 08/25/19 05:15 Assessment/Plan: Psychotropic Medications: Unnecessary Medications: Bowel Regimen: - Provider Comments Provider responsibility: Provider responsible to enter orders to implement recommendations Provider Comments to Recommendations by Pharmacy: Agree
[2019-08-26 15:26] VITALS: BP 106/40; PULSE 60; RESP 18; TEMP 36.7; O2SAT 91
[2019-08-26] MEDS: DULoxetine Hcl 20 MG Capsule PO (20:18)
--- NOTE | 2019-08-26 23:16 | NURSING ---
2245- pt given SSE per order with large partially formed and partially loose brown results. Pt denies pain/cramping. Does c/o ongoing rectal pain at baseline. Had PRN tylenol and ultram earlier this shift. Using K-pad heat for comfort. Denies further needs at this time. bed alarm on and call light within reach.
[2019-08-27] MEDS: Polyethylene Glycol 3350 17 GM PACKET PO (05:00)
[2019-08-27] MEDS: Menthol/Lanolin/Calamine/Znox 113 GM Tube 1 APPLIC TOPICAL ×2 (05:01→21:07)
[2019-08-27] MEDS: Carvedilol 3.125 MG TABLET PO ×2 (05:02→16:59)
[2019-08-27] MEDS: Senna/Docusate Sodium 1 Tablet 2 TABLET PO ×2 (05:03→16:59)
[2019-08-27] MEDS: Cyanocobalamin 500 MCG Tablet 1000 MCG PO (05:03)
[2019-08-27] MEDS: APIXABAN 2.5 MG TABLET PO ×2 (05:04→16:59)
[2019-08-27] MEDS: cycloBENZAPRine HCl 5 MG TABLET PO ×2 (05:04→16:59)
[2019-08-27] MEDS: Furosemide 40 MG Tablet PO (05:04)
[2019-08-27] MEDS: Levothyroxine 50 MCG Tablet PO (05:04)
[2019-08-27] MEDS: Ciprofloxacin 250 MG Tablet PO ×2 (05:04→16:59)
[2019-08-27] MEDS: Memantine Hydrochloride 10 MG Tablet PO ×2 (05:04→16:59)
[2019-08-27] MEDS: Amiodarone 200 MG Tablet PO (05:04)
[2019-08-27 05:13] VITALS: BP 125/46; PULSE 62
[2019-08-27] MEDS: Calcium Carb/Vitamin D 1 TABLET Tablet PO ×3 (08:25→16:59)
[2019-08-27] MEDS: traMADol 50 MG Tablet PO ×2 (12:58→21:03)
[2019-08-27 15:25] VITALS: BP 138/52; PULSE 61; RESP 16; TEMP 36.7; O2SAT 98
[2019-08-27] MEDS: Acetaminophen 500 MG Tablet 1000 MG PO (20:01)
[2019-08-27] MEDS: DULoxetine Hcl 20 MG Capsule PO (21:04)
[2019-08-27] MEDS: Azelastine HCl NASAL.SRY 1 SPRAY NASAL (21:06)
[2019-08-28] MEDS: Furosemide 40 MG Tablet PO (05:15)
[2019-08-28] MEDS: Carvedilol 3.125 MG TABLET PO ×2 (05:15→17:30)
[2019-08-28] MEDS: cycloBENZAPRine HCl 5 MG TABLET PO ×2 (05:15→17:30)
[2019-08-28] MEDS: Levothyroxine 50 MCG Tablet PO (05:15)
[2019-08-28] MEDS: Amiodarone 200 MG Tablet PO (05:15)
[2019-08-28] MEDS: Memantine Hydrochloride 10 MG Tablet PO ×2 (05:15→17:30)
[2019-08-28] MEDS: Senna/Docusate Sodium 1 Tablet 2 TABLET PO ×2 (05:15→17:30)
[2019-08-28] MEDS: Ciprofloxacin 250 MG Tablet PO ×2 (05:15→17:29)
[2019-08-28] MEDS: APIXABAN 2.5 MG TABLET PO ×2 (05:15→17:30)
[2019-08-28] MEDS: Cyanocobalamin 500 MCG Tablet 1000 MCG PO (05:16)
[2019-08-28] MEDS: Menthol/Lanolin/Calamine/Znox 113 GM Tube 1 APPLIC TOPICAL ×2 (05:19→21:23)
[2019-08-28 05:24] VITALS: BP 120/99; PULSE 73
[2019-08-28] MEDS: Calcium Carb/Vitamin D 1 TABLET Tablet PO ×3 (08:21→17:30)
[2019-08-28 15:44] VITALS: BP 115/59; PULSE 68; RESP 17; TEMP 37.2; O2SAT 95
[2019-08-28] MEDS: Acetaminophen 500 MG Tablet 1000 MG PO (21:18)
[2019-08-28] MEDS: DULoxetine Hcl 20 MG Capsule PO (21:23)
[2019-08-29] MEDS: Polyethylene Glycol 3350 17 GM PACKET PO (05:18)
[2019-08-29] MEDS: Senna/Docusate Sodium 1 Tablet 2 TABLET PO ×2 (05:21→17:19)
[2019-08-29] MEDS: Cyanocobalamin 500 MCG Tablet 1000 MCG PO (05:21)
[2019-08-29] MEDS: Levothyroxine 50 MCG Tablet PO (05:21)
[2019-08-29] MEDS: cycloBENZAPRine HCl 5 MG TABLET PO ×2 (05:21→17:17)
[2019-08-29] MEDS: Amiodarone 200 MG Tablet PO (05:21)
[2019-08-29] MEDS: Memantine Hydrochloride 10 MG Tablet PO ×2 (05:21→17:19)
[2019-08-29] MEDS: Ciprofloxacin 250 MG Tablet PO ×2 (05:21→17:16)
[2019-08-29] MEDS: Menthol/Lanolin/Calamine/Znox 113 GM Tube 1 APPLIC TOPICAL ×2 (05:21→19:36)
[2019-08-29] MEDS: Carvedilol 3.125 MG TABLET PO ×2 (05:21→17:17)
[2019-08-29] MEDS: APIXABAN 2.5 MG TABLET PO ×2 (05:21→17:18)
[2019-08-29] MEDS: Furosemide 40 MG Tablet PO (05:22)
[2019-08-29 09:00] VITALS: BP 112/52; PULSE 73; RESP 18; O2SAT 98
[2019-08-29] MEDS: Calcium Carb/Vitamin D 1 TABLET Tablet PO ×3 (09:26→17:16)
[2019-08-29] MEDS: Acetaminophen 500 MG Tablet 1000 MG PO ×2 (09:30→19:35)
[2019-08-29] MEDS: traMADol 50 MG Tablet PO ×2 (09:31→19:35)
[2019-08-29] MEDS: Fluticasone 0.05% 1 SPRAY NASAL.SRY NASAL (13:34)
[2019-08-29 15:56] VITALS: BP 132/56; PULSE 66; RESP 18; TEMP 36.8; O2SAT 94
--- NOTE | 2019-08-29 18:03 | NURSING ---
pt c/o dizziness at times when getting up to BR & with therapy, dr Cortes updated. new order to decrease lasix. pt and updated.
[2019-08-29] MEDS: DULoxetine Hcl 20 MG Capsule PO (19:35)
[2019-08-30] MEDS: Furosemide 20 MG Tablet PO (05:14)
[2019-08-30] MEDS: APIXABAN 2.5 MG TABLET PO ×2 (05:14→17:01)
[2019-08-30] MEDS: Amiodarone 200 MG Tablet PO (05:14)
[2019-08-30] MEDS: cycloBENZAPRine HCl 5 MG TABLET PO ×2 (05:14→17:00)
[2019-08-30] MEDS: Carvedilol 3.125 MG TABLET PO ×2 (05:14→17:00)
[2019-08-30] MEDS: Ciprofloxacin 250 MG Tablet PO ×2 (05:14→16:59)
[2019-08-30] MEDS: Memantine Hydrochloride 10 MG Tablet PO ×2 (05:14→17:55)
[2019-08-30] MEDS: Senna/Docusate Sodium 1 Tablet 2 TABLET PO ×2 (05:15→17:01)
[2019-08-30] MEDS: Menthol/Lanolin/Calamine/Znox 113 GM Tube 1 APPLIC TOPICAL ×2 (05:15→20:36)
[2019-08-30] MEDS: Levothyroxine 50 MCG Tablet PO (05:15)
[2019-08-30] MEDS: Cyanocobalamin 500 MCG Tablet 1000 MCG PO (05:15)
[2019-08-30] MEDS: traMADol 50 MG Tablet PO ×2 (05:51→13:01)
[2019-08-30] MEDS: Acetaminophen 500 MG Tablet 1000 MG PO ×2 (05:51→13:04)
[2019-08-30] MEDS: Calcium Carb/Vitamin D 1 TABLET Tablet PO ×3 (09:09→16:59)
[2019-08-30 09:19] VITALS: PULSE 64; RESP 16; O2SAT 96
[2019-08-30] MEDS: Polyethylene Glycol 3350 17 GM PACKET PO (13:02)
--- NOTE | 2019-08-30 15:02 | NURSING ---
Addendum entered by Fatou Linares 08/30/19 19:00: running it at 100cc/hr per request, worried about fluid overload. Dr Cortes updated. Original Note: dr cortes updated, pt cont to c/o dizziness and low BP's. new order to start IV NS 500cc bolus, dc lasix
[2019-08-30 15:17] VITALS: BP 108/38; PULSE 60; RESP 18; TEMP 36.4; O2SAT 96
[2019-08-30 15:18] VITALS: BP 83/38; PULSE 69
[2019-08-30] MEDS: Fluticasone 0.05% 1 SPRAY NASAL.SRY NASAL (17:02)
[2019-08-30] MEDS: DULoxetine Hcl 20 MG Capsule PO (20:36)
[2019-08-31] MEDS: Menthol/Lanolin/Calamine/Znox 113 GM Tube 1 APPLIC TOPICAL ×2 (05:39→20:37)
[2019-08-31] MEDS: APIXABAN 2.5 MG TABLET PO ×2 (05:40→18:16)
[2019-08-31] MEDS: Cyanocobalamin 500 MCG Tablet 1000 MCG PO (05:40)
[2019-08-31] MEDS: cycloBENZAPRine HCl 5 MG TABLET PO ×2 (05:40→18:16)
[2019-08-31] MEDS: Amiodarone 200 MG Tablet PO (05:40)
[2019-08-31] MEDS: Polyethylene Glycol 3350 17 GM PACKET PO (05:40)
[2019-08-31] MEDS: Senna/Docusate Sodium 1 Tablet 2 TABLET PO ×2 (05:40→18:16)
[2019-08-31] MEDS: Carvedilol 3.125 MG TABLET PO ×2 (05:40→18:16)
[2019-08-31] MEDS: Levothyroxine 50 MCG Tablet PO (05:40)
[2019-08-31] MEDS: Memantine Hydrochloride 10 MG Tablet PO ×2 (05:41→18:16)
[2019-08-31] MEDS: Calcium Carb/Vitamin D 1 TABLET Tablet PO ×3 (09:12→18:16)
[2019-08-31] MEDS: Acetaminophen 500 MG Tablet 1000 MG PO ×2 (09:15→20:36)
[2019-08-31] MEDS: traMADol 50 MG Tablet PO ×2 (09:15→20:36)
--- NOTE | 2019-08-31 11:14 | RAD_ITS ---
STUDY: X-RAY - ABDOMEN/PELVIS REASON FOR EXAM: Female, 83 years old. Flank pain TECHNIQUE: 2 AP views COMPARISON: 08/26/2019 FINDINGS: Stable appearance of a left-sided JJ stent. Stable appearance of a 6 mm calcification in the proximal left ureter. Retained stool again noted throughout the colon. There is no demonstrated free abdominal air. The visualized liver, spleen and kidneys are grossly normal in size and morphology. Normal soft tissue structures. There are diffuse degenerative changes of the visualized lumbar spine. RAD/Abdomen Single View IMPRESSION: No change since the previous study Electronically Signed: Devon Pittman MD at 11:29 EDT , Service support ,
--- NOTE | 2019-08-31 12:02 | CASEMGMT ---
Social Work IDT met with patient and for care plan meeting. Discussed patient's progress in therapy. Pt is having some medical issues currently that nursing and physicians are working to correct; however, it is limiting pt in progress in therapy at this time. Pt is currently min assist for LE ADLS, SBA to CGA for toileting and UE ADLs, CGA transfers. Pt is walking 120 ft with FWW when not dizzy. Explained Medicare benefit - patient admitted on day 11 as pt did not have 60 day break in service - is 09/03, but states secondary will cover copays. Will continue to follow. CYNTHIA SparksW
[2019-08-31] MEDS: Bisacodyl 5 MG Tablet 10 MG PO (12:16)
--- NOTE | 2019-08-31 13:44 | NURSING ---
call Dr. Cueva's office to see about moving lithotripsy up per request
[2019-08-31 14:52] LABS: Bacteria 0 SEEN /hpf (None Seen); Mucous, Urine 0 SEEN /hpf (<or=2+)
[2019-08-31 14:53] LABS: Color, Urine Red (Yellow); Glucose, Dipstick Normal (Normal); Ketone-Dipstick 5 mg/dl (Negative); Leukocyte Esterase-Dipstick 100 /ul (Negative); Nitrite-Dipstick Negative (Negative); Occult Blood-Urine 250 /ul (Negative); Protein-Dipstick 100 mg/dl (Negative); Specific Gravity, Urine 1.015 (1.002-1.030); Urine Bilirubin Dipstick Negative (Negative); Urine Clarity Cloudy (Clear); Urine Urobilinogen Normal (Normal)
[2019-08-31 15:02] LABS: Red Blood Cells-Urine 25-50 SEEN /hpf (0-5); White Blood Cells 10-25 SEEN /hpf (0-5)
[2019-08-31 15:03] LABS: Squamous Epithelial Cells - UA 0-5 SEEN /hpf (5-10)
[2019-08-31 15:17] VITALS: BP 119/31; PULSE 58; RESP 18; TEMP 36.6; O2SAT 98
[2019-08-31 15:18] VITALS: BP 110/31
[2019-08-31] MEDS: Fluticasone 0.05% 1 SPRAY NASAL.SRY NASAL (20:36)
[2019-08-31] MEDS: DULoxetine Hcl 20 MG Capsule PO (20:36)
[2019-08-31] MEDS: 0.9% Saline Lock 10 ML Syringe IV (20:38)
[2019-09-01] MEDS: Memantine Hydrochloride 10 MG Tablet PO ×2 (05:00→16:38)
[2019-09-01] MEDS: Carvedilol 3.125 MG TABLET PO ×2 (05:00→16:38)
[2019-09-01] MEDS: Cyanocobalamin 500 MCG Tablet 1000 MCG PO (05:00)
[2019-09-01] MEDS: Levothyroxine 50 MCG Tablet PO (05:00)
[2019-09-01] MEDS: cycloBENZAPRine HCl 5 MG TABLET PO ×2 (05:00→16:39)
[2019-09-01] MEDS: Amiodarone 200 MG Tablet PO (05:01)
[2019-09-01] MEDS: Menthol/Lanolin/Calamine/Znox 113 GM Tube 1 APPLIC TOPICAL ×2 (05:03→20:59)
[2019-09-01 05:47] LABS: Absolute Lymphocyte Count 2.01 X10^3/uL (0.83-4.51); Absolute Neutrophil Count 3.9 X10^3/uL (2.0-7.7); Basophil# 0.17 X10^3/uL; Basophil% 2.3 % (0-1); Eosinophil# 0.67 X10^3/uL; Hematocrit 33.4 % (37-47); Hemoglobin 10.4 g/dL (12.0-15.0); Lymphocyte # 2.01 X10^3/ul (4.0); Lymphocyte % 26.9 % (19-41); Mean Corp Hgb Conc 31.1 g/dL (32-36); Mean Corpuscular Hgb 30.8 pg (27.0-32.0); Mean Corpuscular Volume 98.8 fL (81-99); Mean Platelet Vol. 10.2 fl (6.2-12.0); Monocyte# 0.69 X10^3/uL; Monocyte% 9.2 % (0-10); NRBC Flagged by Analyzer 0 % (0-5); Neutrophil # 3.89 X10^3/uL (2.7-7.7); Neutrophil % 52.2 % (47-70); Platelet Count 325 K/mm3 (150-450); RBC Distribution Width SD 54.4 fl (35.1-43.9); Red Blood Count 3.38 M/mm3 (4.2-5.4); White Blood Count 7.5 K/mm3 (4.4-11.0)
[2019-09-01 06:11] LABS: Anion Gap 8 (5-15); BUN 18 mg/dL (7-18); BUN/Creat Ratio 12.5 RATIO (10-20); Calcium,Total 8.7 mg/dL (8.5-10.1); Chloride 106 mmol/L (98-107); Creatinine, Serum 1.44 mg/dL (0.55-1.02); EST Glomerular Filtration Rate 37 mL/min (>60); Est Glom Filt Rate - Afr Amer 45 mL/min (>60); Estimated Creatinine Clearance 23.12 ml/min; Glucose 94 mg/dL (74-106); Potassium 3.3 mmol/L (3.5-5.1); Sodium Level 142 mmol/L (136-145)
[2019-09-01] MEDS: Calcium Carb/Vitamin D 1 TABLET Tablet PO ×3 (06:58→16:38)
[2019-09-01] MEDS: Acetaminophen 500 MG Tablet 1000 MG PO ×2 (08:14→21:00)
[2019-09-01] MEDS: traMADol 50 MG Tablet PO ×2 (08:14→21:00)
[2019-09-01 13:15] LABS: Mucous, Urine 0 SEEN /hpf (<or=2+)
[2019-09-01 13:21] LABS: Color, Urine Red (Yellow); Glucose, Dipstick Normal (Normal); Ketone-Dipstick 5 mg/dl (Negative); Leukocyte Esterase-Dipstick 25 /ul (Negative); Nitrite-Dipstick Negative (Negative); Occult Blood-Urine 250 /ul (Negative); Protein-Dipstick 500 mg/dl (Negative); Urine Bilirubin Dipstick Negative (Negative); Urine Clarity Turbid (Clear); Urine Urobilinogen Normal (Normal); Urine pH 6.5 (5.0 - 8.0)
[2019-09-01 13:32] LABS: White Blood Cells 0-5 SEEN /hpf (0-5)
[2019-09-01 13:33] LABS: Bacteria 1+ /hpf (None Seen); Calcium Oxalate Crystals Ur 1+ /hpf (<or=2+); Red Blood Cells-Urine > 100 SEEN /hpf (0-5); Squamous Epithelial Cells - UA 0-5 SEEN /hpf (5-10)
[2019-09-01 15:34] VITALS: BP 115/46; PULSE 95; RESP 17; TEMP 36.5; O2SAT 94
[2019-09-01] MEDS: APIXABAN 2.5 MG TABLET PO (16:38)
[2019-09-01] MEDS: Senna/Docusate Sodium 1 Tablet 2 TABLET PO (16:38)
[2019-09-01] MEDS: DULoxetine Hcl 20 MG Capsule PO (20:59)
[2019-09-02] MEDS: Polyethylene Glycol 3350 17 GM PACKET PO (05:02)
[2019-09-02] MEDS: Senna/Docusate Sodium 1 Tablet 2 TABLET PO ×2 (05:08→17:12)
[2019-09-02] MEDS: Levothyroxine 50 MCG Tablet PO (05:08)
[2019-09-02] MEDS: Cyanocobalamin 500 MCG Tablet 1000 MCG PO (05:08)
[2019-09-02] MEDS: Amiodarone 200 MG Tablet PO (05:08)
[2019-09-02] MEDS: Carvedilol 3.125 MG TABLET PO ×2 (05:08→17:10)
[2019-09-02] MEDS: cycloBENZAPRine HCl 5 MG TABLET PO ×2 (05:08→17:11)
[2019-09-02] MEDS: Memantine Hydrochloride 10 MG Tablet PO ×2 (05:08→17:12)
[2019-09-02] MEDS: Menthol/Lanolin/Calamine/Znox 113 GM Tube 1 APPLIC TOPICAL ×2 (05:08→20:21)
[2019-09-02] MEDS: Fluticasone 0.05% 1 SPRAY NASAL.SRY NASAL (09:02)
[2019-09-02] MEDS: Calcium Carb/Vitamin D 1 TABLET Tablet PO ×3 (09:03→17:09)
[2019-09-02 10:00] VITALS: PULSE 60; RESP 16; O2SAT 96
[2019-09-02] MEDS: Acetaminophen 500 MG Tablet 1000 MG PO ×2 (11:55→20:13)
[2019-09-02 16:00] VITALS: BP 111/47; PULSE 60; RESP 18; TEMP 36.6; O2SAT 96
[2019-09-02] MEDS: traMADol 50 MG Tablet PO (20:14)
[2019-09-02] MEDS: DULoxetine Hcl 20 MG Capsule PO (20:16)
--- NOTE | 2019-09-03 01:13 | NURSING ---
0000- spoke to pt regarding her pain meds, states it wasn't working. offered to call dr. pt refused intervention states her pain meds were not working for her pain. 0115- pt again c/o pain and states no one is listening to her. explained to pt she refused intervention earlier. isidoro ashton called and spoke to . dr. de la vega ordered oxyir 2.5 mg one time dose.
[2019-09-03] MEDS: oxyCODONE 5 MG Tablet 2.5 MG PO (01:23)
--- NOTE | 2019-09-03 03:44 | NURSING ---
pt asleep at this time.
[2019-09-03] MEDS: Polyethylene Glycol 3350 17 GM PACKET PO (06:17)
[2019-09-03] MEDS: Amiodarone 200 MG Tablet PO (06:18)
[2019-09-03] MEDS: Senna/Docusate Sodium 1 Tablet 2 TABLET PO ×2 (06:18→16:44)
[2019-09-03] MEDS: Memantine Hydrochloride 10 MG Tablet PO ×2 (06:18→16:44)
[2019-09-03] MEDS: Carvedilol 3.125 MG TABLET PO ×2 (06:18→16:43)
[2019-09-03] MEDS: Cyanocobalamin 500 MCG Tablet 1000 MCG PO (06:18)
[2019-09-03] MEDS: cycloBENZAPRine HCl 5 MG TABLET PO ×2 (06:18→16:43)
[2019-09-03] MEDS: Levothyroxine 50 MCG Tablet PO (06:18)
[2019-09-03] MEDS: Menthol/Lanolin/Calamine/Znox 113 GM Tube 1 APPLIC TOPICAL ×2 (06:22→21:37)
--- NOTE | 2019-09-03 06:41 | NURSING ---
offered pt pain meds pt refused.
[2019-09-03 07:19] LABS: Anion Gap 9 (5-15); BUN 20 mg/dL (7-18); Calcium,Total 8.7 mg/dL (8.5-10.1); Chloride 108 mmol/L (98-107); Creatinine, Serum 1.43 mg/dL (0.55-1.02); EST Glomerular Filtration Rate 37 mL/min (>60); Est Glom Filt Rate - Afr Amer 45 mL/min (>60); Estimated Creatinine Clearance 23.28 ml/min; Glucose 102 mg/dL (74-106); Potassium 3.7 mmol/L (3.5-5.1); Sodium Level 143 mmol/L (136-145)
[2019-09-03] MEDS: Calcium Carb/Vitamin D 1 TABLET Tablet PO ×3 (08:42→16:44)
[2019-09-03] MEDS: Acetaminophen 500 MG Tablet 1000 MG PO ×3 (10:05→22:51)
[2019-09-03] MEDS: traMADol 50 MG Tablet PO ×3 (10:06→22:51)
[2019-09-03 15:26] VITALS: BP 102/41; PULSE 57; RESP 20; TEMP 36.8; O2SAT 95
[2019-09-03] MEDS: DULoxetine Hcl 20 MG Capsule PO (21:35)
[2019-09-03] MEDS: Fluticasone 0.05% 1 SPRAY NASAL.SRY NASAL (21:35)
[2019-09-04] MEDS: Senna/Docusate Sodium 1 Tablet 2 TABLET PO ×2 (05:44→17:49)
[2019-09-04] MEDS: Amiodarone 200 MG Tablet PO (05:44)
[2019-09-04] MEDS: Cyanocobalamin 500 MCG Tablet 1000 MCG PO ×2 (05:44→17:50)
[2019-09-04] MEDS: cycloBENZAPRine HCl 5 MG TABLET PO ×2 (05:44→17:54)
[2019-09-04] MEDS: Carvedilol 3.125 MG TABLET PO ×2 (05:44→17:49)
[2019-09-04] MEDS: Memantine Hydrochloride 10 MG Tablet PO ×2 (05:44→17:49)
[2019-09-04] MEDS: Polyethylene Glycol 3350 17 GM PACKET PO (05:44)
[2019-09-04] MEDS: Levothyroxine 50 MCG Tablet PO (05:44)
[2019-09-04] MEDS: Menthol/Lanolin/Calamine/Znox 113 GM Tube 1 APPLIC TOPICAL ×2 (05:45→20:52)
[2019-09-04] MEDS: Calcium Carb/Vitamin D 1 TABLET Tablet PO ×3 (07:47→17:49)
[2019-09-04] MEDS: Acetaminophen 500 MG Tablet 1000 MG PO (09:47)
[2019-09-04] MEDS: traMADol 50 MG Tablet PO (09:47)
[2019-09-04 16:00] VITALS: BP 116/60; PULSE 54; RESP 18; TEMP 36.9; O2SAT 96
[2019-09-04] MEDS: DULoxetine Hcl 20 MG Capsule PO (20:51)
[2019-09-04] MEDS: Fluticasone 0.05% 1 SPRAY NASAL.SRY NASAL (20:51)
[2019-09-05] MEDS: Senna/Docusate Sodium 1 Tablet 2 TABLET PO ×2 (05:18→17:02)
[2019-09-05] MEDS: Levothyroxine 50 MCG Tablet PO (05:18)
[2019-09-05] MEDS: Carvedilol 3.125 MG TABLET PO ×2 (05:18→17:00)
[2019-09-05] MEDS: cycloBENZAPRine HCl 5 MG TABLET PO ×2 (05:18→17:02)
[2019-09-05] MEDS: Amiodarone 200 MG Tablet PO (05:18)
[2019-09-05] MEDS: Polyethylene Glycol 3350 17 GM PACKET PO (05:18)
[2019-09-05] MEDS: Memantine Hydrochloride 10 MG Tablet PO ×2 (05:18→17:01)
[2019-09-05] MEDS: Menthol/Lanolin/Calamine/Znox 113 GM Tube 1 APPLIC TOPICAL ×2 (05:20→21:24)
[2019-09-05] MEDS: traMADol 50 MG Tablet PO ×2 (06:52→21:20)
[2019-09-05] MEDS: Acetaminophen 500 MG Tablet 1000 MG PO ×2 (06:53→21:20)
[2019-09-05] MEDS: Calcium Carb/Vitamin D 1 TABLET Tablet PO ×3 (08:38→16:59)
[2019-09-05 15:40] VITALS: BP 109/73; PULSE 59; RESP 20; TEMP 35.8; O2SAT 95
[2019-09-05 16:27] VITALS: TEMP 36.4
[2019-09-05] MEDS: DULoxetine Hcl 20 MG Capsule PO (21:21)
[2019-09-06] MEDS: Amiodarone 200 MG Tablet PO (05:15)
[2019-09-06] MEDS: Levothyroxine 50 MCG Tablet PO (05:15)
[2019-09-06] MEDS: Memantine Hydrochloride 10 MG Tablet PO ×2 (05:15→18:05)
[2019-09-06] MEDS: Carvedilol 3.125 MG TABLET PO ×2 (05:15→18:05)
--- NOTE | 2019-09-06 09:00 | NURSING ---
pt painful, notified anesthesia to be sure it ok for pt to have her PRN Ultram. stated it was ok with sip of water only, no applesauce.
[2019-09-06] MEDS: traMADol 50 MG Tablet PO ×3 (09:01→21:39)
--- NOTE | 2019-09-06 11:00 | NURSING ---
Pt off floor to surgery at this time via WC. going home and will return later this afternoon, provided his cell phone #
--- NOTE | 2019-09-06 13:58 | NURSING ---
PACU called, pt on way back, LT ureteral stent placed by Dr Cueva today by cystoscope. can resume eating but recommend light meal tonight at supper. Notify MD if fever 101 or higher.
--- NOTE | 2019-09-06 14:23 | NURSING ---
pt returned to floor at this time.
[2019-09-06] MEDS: cycloBENZAPRine HCl 5 MG TABLET PO (14:50)
[2019-09-06] MEDS: Acetaminophen 500 MG Tablet 1000 MG PO ×2 (14:52→21:39)
[2019-09-06 15:50] VITALS: BP 117/52; PULSE 57; RESP 19; TEMP 37; O2SAT 92
[2019-09-06] MEDS: Cyanocobalamin 500 MCG Tablet 1000 MCG PO (18:04)
[2019-09-06] MEDS: Calcium Carb/Vitamin D 1 TABLET Tablet PO (18:05)
[2019-09-06] MEDS: Azelastine HCl NASAL.SRY 1 SPRAY NASAL (18:08)
[2019-09-06] MEDS: Fluticasone 0.05% 1 SPRAY NASAL.SRY NASAL (21:40)
[2019-09-06] MEDS: DULoxetine Hcl 20 MG Capsule PO (21:41)
[2019-09-06] MEDS: Menthol/Lanolin/Calamine/Znox 113 GM Tube 1 APPLIC TOPICAL (21:42)
[2019-09-07] MEDS: Memantine Hydrochloride 10 MG Tablet PO ×2 (03:59→17:12)
[2019-09-07] MEDS: Amiodarone 200 MG Tablet PO (03:59)
[2019-09-07] MEDS: Carvedilol 3.125 MG TABLET PO ×2 (03:59→17:11)
[2019-09-07] MEDS: Acetaminophen 500 MG Tablet 1000 MG PO ×2 (03:59→12:05)
[2019-09-07] MEDS: Levothyroxine 50 MCG Tablet PO (03:59)
[2019-09-07] MEDS: traMADol 50 MG Tablet PO ×2 (04:00→12:03)
[2019-09-07] MEDS: Menthol/Lanolin/Calamine/Znox 113 GM Tube 1 APPLIC TOPICAL ×2 (04:00→20:34)
[2019-09-07] MEDS: cycloBENZAPRine HCl 5 MG TABLET PO ×2 (04:00→17:12)
[2019-09-07] MEDS: Senna/Docusate Sodium 1 Tablet 2 TABLET PO ×2 (04:00→17:12)
[2019-09-07] MEDS: Cyanocobalamin 500 MCG Tablet 1000 MCG PO (04:00)
[2019-09-07] MEDS: Calcium Carb/Vitamin D 1 TABLET Tablet PO ×3 (08:46→17:11)
[2019-09-07] MEDS: Ibuprofen 600 MG Tablet PO (08:48)
[2019-09-07 12:15] VITALS: PULSE 60; RESP 18; O2SAT 96
[2019-09-07 15:54] VITALS: BP 113/41; PULSE 62; RESP 14; TEMP 36.8; O2SAT 96
[2019-09-07] MEDS: DULoxetine Hcl 20 MG Capsule PO (20:31)
[2019-09-08] MEDS: Amiodarone 200 MG Tablet PO (05:29)
[2019-09-08] MEDS: cycloBENZAPRine HCl 5 MG TABLET PO ×2 (05:29→16:51)
[2019-09-08] MEDS: Levothyroxine 50 MCG Tablet PO (05:29)
[2019-09-08] MEDS: Memantine Hydrochloride 10 MG Tablet PO ×2 (05:30→16:51)
[2019-09-08] MEDS: Senna/Docusate Sodium 1 Tablet 2 TABLET PO ×2 (05:30→16:51)
[2019-09-08] MEDS: Carvedilol 3.125 MG TABLET PO ×2 (05:30→16:51)
[2019-09-08] MEDS: Cyanocobalamin 500 MCG Tablet 1000 MCG PO (05:30)
[2019-09-08] MEDS: Polyethylene Glycol 3350 17 GM PACKET PO (05:31)
[2019-09-08] MEDS: Menthol/Lanolin/Calamine/Znox 113 GM Tube 1 APPLIC TOPICAL ×2 (05:37→20:58)
[2019-09-08 05:39] LABS: Absolute Lymphocyte Count 1.77 X10^3/uL (0.83-4.51); Basophil# 0.11 X10^3/uL; Basophil% 1.4 % (0-1); Eosinophils% 3.7 % (0-5); Hematocrit 29.3 % (37-47); Hemoglobin 9.1 g/dL (12.0-15.0); Lymphocyte # 1.77 X10^3/ul (4.0); Lymphocyte % 21.9 % (19-41); Mean Corp Hgb Conc 31.1 g/dL (32-36); Mean Corpuscular Hgb 31.3 pg (27.0-32.0); Mean Corpuscular Volume 100.7 fL (81-99); Mean Platelet Vol. 10.5 fl (6.2-12.0); Monocyte# 0.93 X10^3/uL; Monocyte% 11.5 % (0-10); NRBC Flagged by Analyzer 0 % (0-5); Neutrophil # 4.95 X10^3/uL (2.7-7.7); Neutrophil % 61.1 % (47-70); Platelet Count 319 K/mm3 (150-450); RBC Distribution Width CV 15.8 % (11.6-14.6); RBC Distribution Width SD 59.2 fl (35.1-43.9); Red Blood Count 2.91 M/mm3 (4.2-5.4); White Blood Count 8.1 K/mm3 (4.4-11.0)
[2019-09-08 06:02] LABS: Anion Gap 6 (5-15); BUN 22 mg/dL (7-18); BUN/Creat Ratio 15.8 RATIO (10-20); Calcium,Total 8.6 mg/dL (8.5-10.1); Chloride 110 mmol/L (98-107); Creatinine, Serum 1.39 mg/dL (0.55-1.02); EST Glomerular Filtration Rate 39 mL/min (>60); Est Glom Filt Rate - Afr Amer 47 mL/min (>60); Estimated Creatinine Clearance 23.95 ml/min; Glucose 94 mg/dL (74-106); Potassium 4.5 mmol/L (3.5-5.1); Sodium Level 144 mmol/L (136-145)
[2019-09-08] MEDS: APIXABAN 2.5 MG TABLET PO ×2 (07:39→16:51)
[2019-09-08] MEDS: Calcium Carb/Vitamin D 1 TABLET Tablet PO ×3 (07:39→16:51)
--- NOTE | 2019-09-08 08:27 | PCM.DC ---
- Discharge Diagnoses Current Active Problems: Current Active and Chronic Problems (Last Reviewed 08/19/19 @ 15:53 by Ortiz Cueva MD) Left ureteral calculus (Acute) Hydroureter, left (Acute) Hydronephrosis, left (Acute) Acute on chronic systolic (congestive) heart failure (Acute) Acute hypoxemic respiratory failure (Acute) You will use the following diet at home:: No restrictions, Regular Your food should be the consistency of: Regular Your liquids should be the consistency of: Regular/Thin Discharge Activity: Return to Normal Activity, May Shower, Use Walker Weight Bearing Status: Weight bearing as tolerated Call your doctor if you observe: Fever of 101 or Higher, Inability to urinate, Inability to have a bowel movement, Shortness of breath, Chest pain, Uncontrolled pain Allergies/Adverse Reactions: Allergies Penicillins [PCN] Allergy (Verified 09/06/19 11:17) Rash Medications to take at Discharge Amiodarone HCl [Cordarone] 200 mg PO DAILY 10/06/18 Cyanocobalamin (Vitamin B-12) [B-12] 1,000 mcg PO DAILY 11/02/18 cyclobenzaprine 5 mg tablet 5 mg PO BID tab 05/30/19 Carvedilol [Coreg (Beta Kori)] 3.125 mg PO BID 08/03/19 Calcium Citrate/Vitamin D3 [Calcium Cit 315-Vit D3 200 Tab] 1 tab PO TID 08/19/19 Cholecalciferol (Vitamin D3) [D3-2000] 2,000 unit PO DAILY 08/19/19 Levothyroxine Sodium [Levoxyl] 50 mcg PO DAILY 08/19/19 Memantine Hydrochloride [Namenda] 10 mg PO BID 08/19/19 Duloxetine Hcl [Cymbalta] 20 mg PO DAILY 09/06/19 Ibuprofen 600 mg PO Q4H PRN PRN #20 tab 09/06/19 Menthol/Lanolin/Calamine/Znox [Calmoseptine Ointment] 1 applic TOPICAL BID 09/06/19 Polyethylene Glycol 3350 [Miralax] 17 gm PO DAILY 09/06/19 Potassium Chloride [K-Dur] 10 meq PO DAILY 09/06/19 Acetaminophen [Tylenol] 1,000 mg PO Q6H PRN PRN tab 09/08/19 Apixaban [Eliquis] 2.5 mg PO BID tab 09/08/19 Azelastine HCl [Astelin] 1 spray NASAL BID PRN nasal.sry 09/08/19 Duloxetine Hcl [Cymbalta] 20 mg PO QHS cap 09/08/19 Fluticasone 0.05% [Flonase Nasal [place]] 1 spray NASAL BID PRN nasal.sry 09/08/19 Ibuprofen [Motrin] 600 mg PO Q4H PRN PRN tab 09/08/19 Menthol/Lanolin/Calamine/Znox [Calmoseptine Ointment] 1 applic TOPICAL 0600,2200 tube 09/08/19 Mineral Oil/Petrolatum,White [Eucerin] 1 applic TOPICAL QHS jar 09/08/19 Polyethylene Glycol 3350 [Miralax] 17 gm PO DAILY packet 09/08/19 Potassium Chloride [K-Dur] 10 meq PO DAILYCM #30 tab 09/08/19 Sodium Chloride 0.65% [[place] Nasal [place]] 1 spray NASAL TID PRN PRN spray.btl 09/08/19 traMADol [Ultram] 50 mg PO Q6H PRN PRN #30 tab 09/08/19 The following prescriptions were given: Potassium Chloride [K-Dur] 10 meq PO DAILYCM #30 tab Prescription Printed traMADol [Ultram] 50 mg PO Q6H PRN PRN #30 tab PRN Reason: Pain Score 4-6 Prescription Printed Primary Care Physician: Ben Loomis MD [Primary Care Provider] - Please follow up with your Primary Care Physician in: 1 week. Test Results: Test results from this visit will be discussed in further detail at your follow-up appointment, if applicable. Please Follow Up With: Ortiz Cueva MD When: call for appt next week for stent removal 09/12/19 Please Follow Up With: Ben Loomis MD Proposed Discharge Date: 09/09/19
--- NOTE | 2019-09-08 08:28 | DS.PCM_ITS ---
Discharge Date and Diagnosis - Problem List Patient Problems: Active and Suspected Problems (Last Reviewed 08/19/19 @ 15:53 by Ortiz Cueva MD) Left ureteral calculus (Acute) Hydroureter, left (Acute) Hydronephrosis, left (Acute) Acute on chronic systolic (congestive) heart failure (Acute) Acute hypoxemic respiratory failure (Acute) Date of Admission: 08/24/19 Date of Discharge: 09/09/19 - Primary Discharge Diagnosis Active and Suspected Problems (Last Reviewed 08/19/19 @ 15:53 by Ortiz Cueva MD) Left ureteral calculus (Acute) Hydroureter, left (Acute) Hydronephrosis, left (Acute) Acute on chronic systolic (congestive) heart failure (Acute) Acute hypoxemic respiratory failure (Acute) - Secondary Discharge Diagnosis Chronic Problems (Last Reviewed 08/19/19 @ 15:53 by Ortiz Cueva MD) Urinary retention (Chronic) Stroke (Chronic) Atrial fibrillation (Chronic) Vascular dementia (Chronic) Expressive aphasia (Chronic) Allergic rhinitis (Chronic) Hypothyroidism (Chronic) Muscle spasm (Chronic) Hypertension (Chronic) Essential (primary) hypertension (Chronic) History of breast cancer (Chronic) 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) last ECHO with a 35 % EF Secondary pulmonary arterial hypertension (Chronic) Nonrheumatic aortic valve insufficiency (Chronic) Nonrheumatic mitral (valve) insufficiency (Chronic) Non-rheumatic tricuspid valve insufficiency (Chronic) Paroxysmal atrial fibrillation (Chronic) 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) Hospital Course and Treatment Imaging Results: 09/06/19 14:00 Diet: Regular Diet Is pt able to select menu?: No Clinical Impression(s) from Imaging Studies KUB X-Ray 08/31/19 11:14 IMPRESSION: No change since the previous study Electronically Signed: Devon Pittman MD at 11:29 EDT , Service support , Labs (Last 48 Hours) 09/08/19 09/08/19 05:10 05:10 WBC 8.1 RBC 2.91 L Hgb 9.1 L Hct 29.3 L MCV 100.7 H MCH 31.3 MCHC 31.1 L RDW Std Deviation 59.2 H RDW Coeff of Silvano 15.8 H Plt Count 319 MPV 10.5 Immature Gran % (Auto) 0.400 Neut % (Auto) 61.1 Lymph % (Auto) 21.9 [place] % (Auto) 11.5 H Eos % (Auto) 3.7 Baso % (Auto) 1.4 H Absolute Neuts (auto) 5.0 Absolute Lymphs (auto) 1.77 Nucleated RBC % 0 Sodium 144 Potassium 4.5 Chloride 110 H Carbon Dioxide 28.0 Anion Gap 6 BUN 22 H Creatinine 1.39 H Estim Creat Clear Calc 23.95 Est GFR (MDRD) Af Amer 47 L Est GFR (MDRD) Non-Af 39 L BUN/Creatinine Ratio 15.8 Glucose 94 Calcium 8.6 Operations: None Procedures: - - See note. Summary of Care Provided: The patient is a 83 year old Female with below past medical history hospitalized for left ureteral stone, underwent left ureteral stent placement 08/20/[address] Cueva, complicated by acute hypoxemic respiratory failure secondary to acute on chronic systolic congestive heart failure from fluid overload, admitted to TCU with debility, here for rehabilitation, strengthening, prior to discharge home with . 09/06/2019 Dr. Cueva performed Cystoscopy, left ureteroscopy laser lithotripsy of stone, left retrograde pyelogram and interpretation fluoroscopic images, left stent placement. Discharge home with , outpatient PT. Patient Problems: Active and Suspected Problems (Last Reviewed 08/19/19 @ 15:53 by Ortiz Cueva MD) Left ureteral calculus (Acute) Hydroureter, left (Acute) Hydronephrosis, left (Acute) Acute on chronic systolic (congestive) heart failure (Acute) Acute hypoxemic respiratory failure (Acute) - Physical Exam Vitals/I&O's: Vital Signs Temp Pulse Resp BP Pulse Ox 98.2 F 62 14 113/41 L 96 09/07/19 15:54 09/07/19 15:54 09/07/19 15:54 09/07/19 15:54 09/07/19 15:54 Oxygen Flow Rate (L/min) 1 Oxygen Delivery Method Room Air Weight: 58.105 kg Body Mass Index (BMI) 24.5 Intake and Output for Last 24 Hours 09/06/19 09/07/19 09/08/19 23:59 23:59 23:59 Intake Total 840 / 840 Balance 840 / 840 Laboratory Results 09/08/19 05:10: WBC 8.1, RBC 2.91 L, Hgb 9.1 L, Hct 29.3 L, MCV 100.7 H, MCH 31.3, MCHC 31.1 L, RDW Std Deviation 59.2 H, RDW Coeff of Silvano 15.8 H, Plt Count 319, MPV 10.5, Immature Gran % (Auto) 0.400, Neut % (Auto) 61.1, Lymph % (Auto) 21.9, [place] % (Auto) 11.5 H, Eos % (Auto) 3.7, Baso % (Auto) 1.4 H, Absolute Neuts (auto) 5.0, Absolute Lymphs (auto) 1.77, Nucleated RBC % 0 09/08/19 05:10: Sodium 144, Potassium 4.5, Chloride 110 H, Carbon Dioxide 28.0, Anion Gap 6, BUN 22 H, Creatinine 1.39 H, Estim Creat Clear Calc 23.95, Est GFR (MDRD) Af Amer 47 L, Est GFR (MDRD) Non-Af 39 L, BUN/Creatinine Ratio 15.8, Glucose 94, Calcium 8.6 Current Medications Acetaminophen (Tylenol) 1,000 mg PO Q6H PRN PRN PRN Reason: Pain Score 1-3/10 Last Admin: 09/07/19 12:05 Dose: 500 mg Documented by: Amiodarone HCl (Cordarone) 200 mg PO DAILY [facility] Last Admin: 09/08/19 05:29 Dose: 200 mg Documented by: Apixaban (Eliquis) 2.5 mg PO BID [facility] Last Admin: 09/08/19 07:39 Dose: 2.5 mg Documented by: Azelastine HCl (Astelin) 1 spray NASAL BID PRN PRN Reason: RUNNY NOSE Last Admin: 09/06/19 18:08 Dose: 1 spray Documented by: Bisacodyl (Dulcolax) 10 mg PO DAILY PRN PRN Reason: Constipation Last Admin: 08/31/19 12:16 Dose: 10 mg Documented by: Calamine/Phenol (Calmoseptine Ointment) 1 applic TOPICAL 0600,2200 [facility]; Protocol Last Admin: 09/08/19 05:37 Dose: 1 applicatio Documented by: Calcium/Vitamin D (Os-[place] 500mg + D) 1 tablet PO TIDCM [facility] Last Admin: 09/08/19 07:39 Dose: 1 tablet Documented by: Carvedilol (Coreg) 3.125 mg PO BID [facility] Last Admin: 09/08/19 05:30 Dose: 3.125 mg Documented by: Cholecalciferol (Vitamin D) 2,000 unit PO DAILY [facility] Last Admin: 09/08/19 05:29 Dose: 2,000 unit Documented by: Cyanocobalamin (Vitamin B12) 1,000 mcg PO DAILY [facility] Last Admin: 09/08/19 05:30 Dose: 1,000 mcg Documented by: Cyclobenzaprine HCl (Cyclobenzaprine Hcl) 5 mg PO BID [facility] Last Admin: 09/08/19 05:29 Dose: 5 mg Documented by: Duloxetine HCl (Cymbalta) 20 mg PO QHS [facility] Last Admin: 09/07/19 20:31 Dose: 20 mg Documented by: Fluticasone Propionate (Flonase Nasal [place]) 1 spray NASAL BID PRN PRN Reason: RUNNY NOSE Last Admin: 09/06/19 21:40 Dose: 1 spray Documented by: Ibuprofen (Motrin) 600 mg PO Q4H PRN PRN PRN Reason: pain -08/11 Last Admin: 09/07/19 08:48 Dose: 600 mg Documented by: Levothyroxine Sodium (Synthroid) 50 mcg PO DAILY@0600 [facility] Last Admin: 09/08/19 05:29 Dose: 50 mcg Documented by: Memantine (Namenda) 10 mg PO BID [facility] Last Admin: 09/08/19 05:30 Dose: 10 mg Documented by: Multi-Ingredient Cream (Eucerin) 1 applic TOPICAL QHS [facility]; Protocol Last Admin: 09/07/19 20:33 Dose: 1 applicatio Documented by: Nutritional Formula (Lactose Free) (Ensure Enlive) 120 ml PO 4X/DAY [facility] Last Admin: 09/08/19 05:33 Dose: 120 ml Documented by: Polyethylene Glycol (Miralax) 17 gm PO DAILY [facility] Last Admin: 09/08/19 05:31 Dose: 17 gm Documented by: Potassium [facility] Admin: 09/08/19 07:40 Dose: 10 meq Documented by: Senna/Docusate Sodium (Senokot-S, Lorin-Colace) 2 tablet PO BID [facility] Last Admin: 09/08/19 05:30 Dose: 2 tablet Documented by: Sodium Chloride ([place] Nasal [place]) 1 spray NASAL TID PRN PRN PRN Reason: NASAL DRYNESS Last Admin: 08/25/19 20:14 Dose: 1 spray Documented by: Sodium Chloride () 10 - 40 ml IV UD PRN PRN Reason: SALINE FLUSH Last Admin: 08/31/19 20:38 Dose: 10 ml Documented by: Tramadol HCl (Ultram) 50 mg PO Q6H PRN PRN PRN Reason: Pain Score 4-08/11 Last Admin: 09/07/19 12:03 Dose: 50 mg Documented by: Discharge Diet: No Restrictions Discharge Activity: Return to Normal Activity, May Shower, Use Walker Weight Bearing Status: Weight bearing as tolerated Call your doctor if you observe: Fever of 101 or Higher, Inability to urinate, Inability to have a bowel movement, Shortness of breath, Chest pain, Uncontrolled pain Home Medications: Medications to take at Discharge RX: Amiodarone HCl [Cordarone] 200 mg PO DAILY 10/06/18 RX: Cyanocobalamin (Vitamin B-12) [B-12] 1,000 mcg PO DAILY 11/02/18 cyclobenzaprine 5 mg tablet 5 mg PO BID tab 05/30/19 RX: Carvedilol [Coreg (Beta Kori)] 3.125 mg PO BID 08/03/19 RX: Calcium Citrate/Vitamin D3 [Calcium Cit 315-Vit D3 200 Tab] 1 tab PO TID 08/19/19 RX: Cholecalciferol (Vitamin D3) [D3-2000] 2,000 unit PO DAILY 08/19/19 RX: Levothyroxine Sodium [Levoxyl] 50 mcg PO DAILY 08/19/19 RX: Memantine Hydrochloride [Namenda] 10 mg PO BID 08/19/19 RX: Duloxetine Hcl [Cymbalta] 20 mg PO DAILY 09/06/19 RX: Ibuprofen 600 mg PO Q4H PRN PRN #20 tab 09/06/19 RX: Menthol/Lanolin/Calamine/Znox [Calmoseptine Ointment] 1 applic TOPICAL BID 09/06/19 RX: Polyethylene Glycol 3350 [Miralax] 17 gm PO DAILY 09/06/19 RX: Potassium Chloride [K-Dur] 10 meq PO DAILY 09/06/19 RX: Acetaminophen [Tylenol] 1,000 mg PO Q6H PRN PRN tab 09/08/19 RX: Apixaban [Eliquis] 2.5 mg PO BID tab 09/08/19 RX: Azelastine HCl [Astelin] 1 spray NASAL BID PRN nasal.sry 09/08/19 RX: Duloxetine Hcl [Cymbalta] 20 mg PO QHS cap 09/08/19 RX: Fluticasone 0.05% [Flonase Nasal [place]] 1 spray NASAL BID PRN nasal.sry 09/08/19 RX: Ibuprofen [Motrin] 600 mg PO Q4H PRN PRN tab 09/08/19 RX: Menthol/Lanolin/Calamine/Znox [Calmoseptine Ointment] 1 applic TOPICAL 0600,2200 tube 09/08/19 RX: Mineral Oil/Petrolatum,White [Eucerin] 1 applic TOPICAL QHS jar 09/08/19 RX: Polyethylene Glycol 3350 [Miralax] 17 gm PO DAILY packet 09/08/19 RX: Potassium Chloride [K-Dur] 10 meq PO DAILYCM #30 tab 09/08/19 RX: Sodium Chloride 0.65% [[place] Nasal [place]] 1 spray NASAL TID PRN PRN spray.btl 09/08/19 RX: traMADol [Ultram] 50 mg PO Q6H PRN PRN #30 tab 09/08/19 Following Prescrptions Were Given to Patient: RX: Potassium Chloride [K-Dur] 10 meq PO DAILYCM #30 tab Prescription Printed RX: traMADol [Ultram] 50 mg PO Q6H PRN PRN #30 tab PRN Reason: Pain Score 4-6 Prescription Printed Primary Care Physician: Ben Loomis MD [Primary Care Provider] - Please follow up with your Primary Care Physician in: 1 week. Please Follow Up With: Ortiz Cueva MD When: call for appt next week for stent removal 09/12/19 Please Follow Up With: Ben Loomis MD Disposition: Home Minutes spent on discharge:: 30 Patient Condition:: Good Medical Necessity - Tobacco Use Smoking Status: Never smoker Tobacco Use: Non-smoker Meaningful Use Info Meaningful Use Diagnoses (Choose all that apply): None applicable
[2019-09-08 16:00] VITALS: BP 113/33; PULSE 58; RESP 20; TEMP 36.9; O2SAT 97
[2019-09-08] MEDS: Azelastine HCl NASAL.SRY 1 SPRAY NASAL (20:55)
[2019-09-08] MEDS: DULoxetine Hcl 20 MG Capsule PO (20:55)
[2019-09-08] MEDS: Ibuprofen 600 MG Tablet PO (21:00)
[2019-09-09] MEDS: Polyethylene Glycol 3350 17 GM PACKET PO (06:25)
[2019-09-09] MEDS: Senna/Docusate Sodium 1 Tablet 2 TABLET PO (06:26)
[2019-09-09] MEDS: APIXABAN 2.5 MG TABLET PO (06:26)
[2019-09-09] MEDS: Memantine Hydrochloride 10 MG Tablet PO (06:26)
[2019-09-09] MEDS: Cyanocobalamin 500 MCG Tablet 1000 MCG PO (06:27)
[2019-09-09] MEDS: Calcium Carb/Vitamin D 1 TABLET Tablet PO ×2 (06:27→11:47)
[2019-09-09] MEDS: cycloBENZAPRine HCl 5 MG TABLET PO (06:27)
[2019-09-09] MEDS: Levothyroxine 50 MCG Tablet PO (06:27)
[2019-09-09] MEDS: Menthol/Lanolin/Calamine/Znox 113 GM Tube 1 APPLIC TOPICAL (06:28)
[2019-09-09] MEDS: Amiodarone 200 MG Tablet PO (06:28)
[2019-09-09] MEDS: Carvedilol 3.125 MG TABLET PO (06:28)
[2019-09-09 08:27] VITALS: BP 128/50; PULSE 60; RESP 18; TEMP 36.7; O2SAT 95
[2019-09-09] MEDS: Acetaminophen 500 MG Tablet 1000 MG PO (12:52)
== END 2019-09-09 12:45 | disposition home or self-care (01) | DRG 698 ==
PROVIDERS: Admitting Provider Family Medicine Geriatric Medicine; Family Provider Internal Medicine; PCP Internal Medicine; Referring Provider Family Medicine Geriatric Medicine; Visit Provider Family Medicine Geriatric Medicine
DX: N99.89 Other postprocedural complications and disorders of genitourinary system (principal); I50.23 Acute on chronic systolic (congestive) heart failure; I48.20 Chronic atrial fibrillation, unspecified; N13.2 Hydronephrosis with renal and ureteral calculous obstruction; I11.0 Hypertensive heart disease with heart failure; Z23 Encounter for immunization; E55.9 Vitamin D deficiency, unspecified; F32.9 Major depressive disorder, single episode, unspecified; E03.9 Hypothyroidism, unspecified; F01.50 Vascular dementia, unspecified severity, without behavioral disturbance, psychotic disturbance, mood disturbance, and anxiety; I48.0 Paroxysmal atrial fibrillation; I27.21 Secondary pulmonary arterial hypertension; F41.9 Anxiety disorder, unspecified; Y82.8 Other medical devices associated with adverse incidents
CPT/HCPCS: 36415; 74018; 80048; 81001; 85025; 87086; 87088; 97110; 97116; 97162; 97166; 97530; 97535; 97802; G0008; J7040; J7120; 90686; A4216; J2405

== ENCOUNTER 2019-09-06 11:06 | Day surgery (SDC) | payer MEDICARE, OTHER, SELFPAY ==
[2019-09-06 11:20] VITALS: BP 130/54; PULSE 57; RESP 12; TEMP 36.1; O2SAT 97; BMI 24.3
[2019-09-06] MEDS: Lactated Ringers 1,000 ML 100 ML IV (11:29)
[2019-09-06] MEDS: Cefazolin 2 GM in 0.9% Normal Saline 100 ML IV (12:26)
--- NOTE | 2019-09-06 12:26 | DCINST_ITS ---
- Discharge Diagnoses Current Active Problems: Current Active and Chronic Problems (Last Reviewed 08/19/19 @ 15:53 by Ortiz Cueva MD) Left ureteral calculus (Acute) Hydroureter, left (Acute) Hydronephrosis, left (Acute) Acute on chronic systolic (congestive) heart failure (Acute) Acute hypoxemic respiratory failure (Acute) You will use the following diet at home:: No restrictions Your food should be the consistency of: Regular Discharge Activity: Return to Normal Activity Call your doctor if you observe: Fever of 101 or Higher Suture Line Care: Avoid Pulling/Pushing, Avoid Pinching/Bending Allergies/Adverse Reactions: Allergies Penicillins [PCN] Allergy (Verified 09/06/19 11:17) Rash Medications to take at Discharge Amiodarone HCl [Cordarone] 200 mg PO DAILY 10/06/18 Cyanocobalamin (Vitamin B-12) [B-12] 1,000 mcg PO DAILY 11/02/18 cyclobenzaprine 5 mg tablet 5 mg PO BID tab 05/30/19 Carvedilol [Coreg (Beta Kori)] 3.125 mg PO BID 08/03/19 traMADol [Ultram] 50 mg PO Q6H PRN PRN tab 08/10/19 Calcium Citrate/Vitamin D3 [Calcium Cit 315-Vit D3 200 Tab] 1 tab PO TID 08/19/19 Cholecalciferol (Vitamin D3) [D3-2000] 2,000 unit PO DAILY 08/19/19 Levothyroxine Sodium [Levoxyl] 50 mcg PO DAILY 08/19/19 Memantine Hydrochloride [Namenda] 10 mg PO BID 08/19/19 Docusate Sodium [Colace] 100 mg PO BID 08/24/19 Acetaminophen [Tylenol Extra Strength] 500 mg PO Q4H PRN PRN #20 tab 09/06/19 Duloxetine Hcl [Cymbalta] 20 mg PO DAILY 09/06/19 Ibuprofen 600 mg PO Q4H PRN PRN #20 tab 09/06/19 Menthol/Lanolin/Calamine/Znox [Calmoseptine Ointment] 1 applic TOPICAL BID 09/06/19 Nutritional Supplement [Ensure] 113 gm PO DAILY 09/06/19 Polyethylene Glycol 3350 [Miralax] 17 gm PO DAILY 09/06/19 Potassium Chloride [K-Dur] 10 meq PO DAILY 09/06/19 The following prescriptions were given: Ibuprofen 600 mg PO Q4H PRN PRN #20 tab PRN Reason: Pain Score 1-08/11 Prescription Printed Acetaminophen [Tylenol Extra Strength] 500 mg PO Q4H PRN PRN #20 tab PRN Reason: Pain Score 1-10 Prescription Printed Primary Care Physician: Ben Loomis MD [Primary Care Provider] - Test Results: Test results from this visit will be discussed in further detail at your follow- up appointment, if applicable. Please Follow Up With: Ortiz Cueva MD - with our Nurse practicioner When: call for an appt next week with the SYSTEM SUPPORT DEVELOPER to remove stent
--- NOTE | 2019-09-06 12:57 | OP.PCM_ITS ---
Report of Operation Date of Procedure: 09/06/19 Pre-Operative Diagnosis: Left obstructing ureteral calculi status post stent Post-Operative Diagnosis: Same Surgery/Procedure Performed:: Cystoscopy, left ureteroscopy laser lithotripsy of stone, left retrograde pyelogram and interpretation fluoroscopic images, left stent placement Description of Surgical Findings:: 83-year-old female taken back to the operating room after smooth induction of g eneral anesthesia she was placed supine on the table, urethra and vaginal area were prepped and draped in usual sterile fashion within the bladder with a 21 [place] rigid cystourethroscope grabbed existing stent pulled out the meatus advance a wire through the stent and then over the wire advanced the access sheath that went up to the mid ureter and into the access sheath we went in with a flexible ureteroscope using saline for irrigation I encountered the stone in the proximal ureter that is causing obstruction I then used a 200 ?m laser fiber laser the stone little tiny pieces. Once the pieces were all lasered into small little fragments that should pass on their own then I worked my way down the ureter no other fragments were along the ureter was pulled back on the access sheath and then through the access sheath advance a wire for the wire up in the kidney and then over the wire advanced a stent is a 6 [place] by 24 cm stent stent good position I pulled the wire and the stent coiled in the kidney bladder good position drained the bladder patient anesthetic was reversed plan to see her back next week with an x-ray we can remove the stent on the string. Type of Anesthesia:: General Drains: stent left side - Admit VTE Documentation VTE Present on Admission: No VTE Mechan Device Prophylaxis: SCD's
[2019-09-06 13:10] VITALS: BP 130/54; BP 147/76; PULSE 63; RESP 16; TEMP 36.5; O2SAT 92
[2019-09-06 13:15] VITALS: BP 130/54; BP 151/63; PULSE 62; RESP 16; O2SAT 100
[2019-09-06 13:30] VITALS: BP 130/54; BP 145/63; PULSE 62; RESP 16; O2SAT 94
[2019-09-06 13:44] VITALS: BP 130/54; BP 145/63; PULSE 63; RESP 18; TEMP 36.7; O2SAT 98
--- NOTE | 2019-09-08 14:26 | HP.PCM_ITS ---
History of Present Illness Date of Admission: 09/06/19 Chief Complaint: left kidney stone The patient is a 83 year old Female s/p stent, plan for left ureteroscopy laser stone. 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) last ECHO with a 35 % EF Secondary pulmonary arterial hypertension (Chronic) Nonrheumatic aortic valve insufficiency (Chronic) Nonrheumatic mitral (valve) insufficiency (Chronic) Non-rheumatic tricuspid valve insufficiency (Chronic) Paroxysmal 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 fibrillation (Chronic) 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) Medical History: Medical History (Last Reviewed 08/19/19 @ 15:53 by Ortiz Cueva MD) Essential (primary) hypertension (Chronic) I10 History of breast cancer (Chronic) Z85.3 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) I43 last ECHO with a 35 % EF Secondary pulmonary arterial hypertension (Chronic) I27.21 Nonrheumatic aortic valve insufficiency (Chronic) I35.1 Nonrheumatic mitral (valve) insufficiency (Chronic) I34.0 Non-rheumatic tricuspid valve insufficiency (Chronic) I36.1 Paroxysmal atrial fibrillation (Chronic) I48.0 Chronic systolic (congestive) heart failure (Acute) I50.22 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) Z79.01 Hypothyroidism E03.9 Anxiety and depression F41.9, F32.9 Dementia F03.90 Expressive aphasia R47.01 Joint pain M25.50 Breast cancer C50.919 Allergies Penicillins [PCN] Allergy (Verified 09/06/19 11:17) Rash Home Medications: Ambulatory Orders Medication Instructions Recorded Amiodarone HCl [Cordarone] 200 mg PO DAILY 10/06/18 Cyanocobalamin (Vitamin B-12) 1,000 mcg PO DAILY 11/02/18 [B-12] cyclobenzaprine 5 mg tablet 5 mg PO BID tab 05/30/19 Carvedilol [Coreg (Beta Kori)] 3.125 mg PO BID 08/03/19 Calcium Citrate/Vitamin D3 1 tab PO TID 08/19/19 [Calcium Cit 315-Vit D3 200 Tab] Cholecalciferol (Vitamin D3) 2,000 unit PO DAILY 08/19/19 [D3-2000] Levothyroxine Sodium [Levoxyl] 50 mcg PO DAILY 08/19/19 Memantine Hydrochloride [Namenda] 10 mg PO BID 08/19/19 Duloxetine Hcl [Cymbalta] 20 mg PO DAILY 09/06/19 Ibuprofen 600 mg PO Q4H PRN PRN #20 tab 09/06/19 Menthol/Lanolin/Calamine/Znox 1 applic TOPICAL BID 09/06/19 [Calmoseptine Ointment] Polyethylene Glycol 3350 [Miralax] 17 gm PO DAILY 09/06/19 Potassium Chloride [K-Dur] 10 meq PO DAILY 09/06/19 Acetaminophen [Tylenol] 1,000 mg PO Q6H PRN PRN tab 09/08/19 Apixaban [Eliquis] 2.5 mg PO BID tab 09/08/19 Azelastine HCl [Astelin] 1 spray NASAL BID PRN nasal.sry 09/08/19 Duloxetine Hcl [Cymbalta] 20 mg PO QHS cap 09/08/19 Fluticasone 0.05% [Flonase Nasal 1 spray NASAL BID PRN nasal.sry 09/08/19 [place]] Ibuprofen [Motrin] 600 mg PO Q4H PRN PRN tab 09/08/19 Menthol/Lanolin/Calamine/Znox 1 applic TOPICAL 0600,2200 tube 09/08/19 [Calmoseptine Ointment] Mineral Oil/Petrolatum,White 1 applic TOPICAL QHS jar 09/08/19 [Eucerin] Polyethylene Glycol 3350 [Miralax] 17 gm PO DAILY packet 09/08/19 Potassium Chloride [K-Dur] 10 meq PO DAILYCM #30 tab 09/08/19 Sodium Chloride 0.65% [[place] Nasal 1 spray NASAL TID PRN PRN 09/08/19 [place]] spray.btl traMADol [Ultram] 50 mg PO Q6H PRN PRN #30 tab 09/08/19 Surgical History: Surgical History (Last Reviewed 08/19/19 @ 15:53 by Ortiz Cueva MD) H/O right mastectomy Z90.11 Surgical History: appendectomy, cataract, mastectomy - Right., - - Lumpectomy, tubal ligation, right breast mass biopsy. Psychiatric History: Depression ESTATE AND TRUST TAX PRINCIPAL History: No pertinent ESTATE AND TRUST TAX PRINCIPAL history Smoking Status: Never smoker - *Family History Maternal Family History: Family History (Last Reviewed 08/19/19 @ 15:53 by Ortiz Cueva MD) Grandmother Diabetes History Items: No pertinent history Paternal Family History: Family History (Last Reviewed 08/19/19 @ 15:53 by Ortiz Cueva MD) Grandmother Diabetes History Items: No pertinent history VTE Information - Inpt Only VTE Present on Admission: No Patient Problems: Active and Suspected Problems (Last Reviewed 08/19/19 @ 15:53 by Ortiz Cueva MD) Left ureteral calculus (Acute) Hydroureter, left (Acute) Hydronephrosis, left (Acute) Acute on chronic systolic (congestive) heart failure (Acute) Acute hypoxemic respiratory failure (Acute) - Physical Exam Vitals/I&O's: Vital Signs Temp Pulse Resp BP Pulse Ox 98.0 F 63 18 145/63 H 98 09/06/19 13:44 09/06/19 13:44 09/06/19 13:44 09/06/19 13:44 09/06/19 13:44 Oxygen Flow Rate (L/min) 3 Oxygen Delivery Method Room Air Weight: 58.513 kg Body Mass Index (BMI) 24.3 Intake and Output for Last 24 Hours 09/06/19 09/07/19 09/08/19 23:59 23:59 23:59 Intake Total 410 / 410 Balance 410 / 410 General: Alert, Oriented x3, Cooperative HEENT: Atraumatic, PERRLA, EOMI, Normocephalic Neck: Supple, No JVD, Negative Carotid Bruits Lungs: Clear to auscultation, Normal air movement Cardiovascular: Regular rate, No murmurs Abdomen: Bowel Sounds Present, Soft, Non Tender Extremities: No edema, Capillary Refill Less than 3 Seconds Skin: No rashes, No breakdown Musculoskeletal: No Tenderness to Palpation of Joints or Extremities Neurological: Cranial nerves II-XII grossly intact Psych/Mental Status: Normal Affect, Appropriate Assessment/Plan All Active Problems (Last Reviewed 08/19/19 @ 15:53 by Ortiz Cueva MD) Debility (Acute) Acute on chronic systolic heart failure (Acute) Hypotension (Acute) Left ureteral calculus (Acute) Hydroureter, left (Acute) Hydronephrosis, left (Acute) Acute on chronic systolic (congestive) heart failure (Acute) Acute hypoxemic respiratory failure (Acute) HFrEF (heart failure with reduced ejection fraction) (Acute) Weakness (Acute) Chronic systolic (congestive) heart failure (Acute) plan to laser stone today
== END 2019-09-06 14:09 | disposition skilled nursing facility (03) ==
LOC: SDC 11:07 → AC 11:47
PROVIDERS: Family Provider Internal Medicine; PCP Internal Medicine; Referring Provider Urology; Visit Provider Urology
PROC: 0TJ98ZZ Inspection of Ureter, Via Natural or Artificial Opening Endoscopic (ICD-10-PCS; CPT 52352; principal; 2019-09-06 12:20)
DX: N13.2 Hydronephrosis with renal and ureteral calculous obstruction (principal); I11.0 Hypertensive heart disease with heart failure; G47.33 Obstructive sleep apnea (adult) (pediatric); I27.20 Pulmonary hypertension, unspecified; I48.20 Chronic atrial fibrillation, unspecified; I48.0 Paroxysmal atrial fibrillation; E03.9 Hypothyroidism, unspecified; I50.22 Chronic systolic (congestive) heart failure; F03.90 Unspecified dementia, unspecified severity, without behavioral disturbance, psychotic disturbance, mood disturbance, and anxiety; Z79.899 Other long term (current) drug therapy; Z79.01 Long term (current) use of anticoagulants; Z79.82 Long term (current) use of aspirin; Z85.3 Personal history of malignant neoplasm of breast; I43 Cardiomyopathy in diseases classified elsewhere
CPT/HCPCS: 00918; 52356; 76000; C2617

== ENCOUNTER 2019-09-10 16:36 | Emergency (ER) | payer MEDICARE, OTHER, SELFPAY ==
[2019-09-10 16:39] VITALS: BP 160/76; PULSE 66; RESP 18; TEMP 36.4; O2SAT 98; BMI 25.1
[2019-09-10 17:03] LABS: Absolute Lymphocyte Count 1.56 X10^3/uL (0.83-4.51); Absolute Neutrophil Count 4.1 X10^3/uL (2.0-7.7); Basophil# 0.11 X10^3/uL; Basophil% 1.5 % (0-1); Eosinophil# 0.82 X10^3/uL; Eosinophils% 11.2 % (0-5); Hematocrit 34.9 % (37-47); Hemoglobin 10.8 g/dL (12.0-15.0); Lymphocyte # 1.56 X10^3/ul (4.0); Lymphocyte % 21.2 % (19-41); Mean Corp Hgb Conc 30.9 g/dL (32-36); Mean Corpuscular Hgb 30.7 pg (27.0-32.0); Mean Corpuscular Volume 99.1 fL (81-99); Mean Platelet Vol. 10.6 fl (6.2-12.0); Monocyte# 0.74 X10^3/uL; Monocyte% 10.1 % (0-10); NRBC Flagged by Analyzer 0 % (0-5); Neutrophil # 4.08 X10^3/uL (2.7-7.7); Neutrophil % 55.5 % (47-70); Platelet Count 359 K/mm3 (150-450); RBC Distribution Width CV 15.2 % (11.6-14.6); RBC Distribution Width SD 55.4 fl (35.1-43.9); Red Blood Count 3.52 M/mm3 (4.2-5.4); White Blood Count 7.4 K/mm3 (4.4-11.0)
[2019-09-10 17:07] LABS: Bacteria 0 SEEN /hpf (None Seen); Mucous, Urine 0 SEEN /hpf (<or=2+); Squamous Epithelial Cells - UA 0 SEEN /hpf (5-10); White Blood Cells 0 SEEN /hpf (0-5)
[2019-09-10 17:13] LABS: Anion Gap 6 (5-15); BUN 20 mg/dL (7-18); BUN/Creat Ratio 15.2 RATIO (10-20); Calcium,Total 8.9 mg/dL (8.5-10.1); Chloride 108 mmol/L (98-107); Creatinine, Serum 1.32 mg/dL (0.55-1.02); EST Glomerular Filtration Rate 41 mL/min (>60); Est Glom Filt Rate - Afr Amer 50 mL/min (>60); Estimated Creatinine Clearance 25.22 ml/min; Glucose 94 mg/dL (74-106); Potassium 4.2 mmol/L (3.5-5.1); Sodium Level 141 mmol/L (136-145)
[2019-09-10 17:15] LABS: Color, Urine Yellow (Yellow); Glucose, Dipstick Normal (Normal); Ketone-Dipstick Negative (Negative); Leukocyte Esterase-Dipstick 500 /ul (Negative); Nitrite-Dipstick Negative (Negative); Occult Blood-Urine 250 /ul (Negative); Protein-Dipstick 100 mg/dl (Negative); Specific Gravity, Urine 1.015 (1.002-1.030); Urine Bilirubin Dipstick Negative (Negative); Urine Clarity Cloudy (Clear); Urine Urobilinogen Normal (Normal)
[2019-09-10 17:17] LABS: Red Blood Cells-Urine > 100 SEEN /hpf (0-5)
--- NOTE | 2019-09-10 17:32 | ED.VIS.GEN ---
History of Present Illness Chief Complaint: Complaint Detail of Chief Complaint: Materia, dysuria, urgency and displaced ureteral stent Informant: Patient, Significant Other Onset: Yesterday Context: Sudden Onset Timing: Intermittent Quality: Dysuria, displacement of ureteral stent, hematuria and incontinence Location: Current Severity: Mild Maximum Severity: Moderate Worsened by: Urination Relieved by: Nothing Associated Symptoms: None - Past Medical History (1) Chronic systolic (congestive) heart failure Status: Acute (2) Hydronephrosis, left Status: Acute (3) Left ureteral calculus Status: Acute (4) Atrial fibrillation Status: Chronic (5) Cardiomyopathy in diseases classified elsewhere Status: Chronic Comment: last ECHO with a 35 % EF (6) Essential (primary) hypertension Status: Chronic (7) Expressive aphasia Status: Chronic (8) History of breast cancer Status: Chronic (9) Hypothyroidism Status: Chronic (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 (11) Non-rheumatic tricuspid valve insufficiency Status: Chronic (12) Nonrheumatic aortic valve insufficiency Status: Chronic (13) Secondary pulmonary arterial hypertension Status: Chronic (14) Stroke Status: Chronic (15) Vascular dementia Status: Chronic Past Medical History - Allergies and Home Meds Allergies/Adverse Reactions: Allergies Penicillins [PCN] Allergy (Verified 09/10/19 16:37) Rash Primary Care Physician: Ben Loomis MD [Primary Care Provider] - Prior records reviewed: Yes Surgical History: appendectomy, cataract, mastectomy - Right., - - Lumpectomy, tubal ligation, right breast mass biopsy. Lives: Spouse/ Significant Other Smoking Status: Never smoker Alcohol: None Drugs: None - Family History Maternal Family History: Family History (Last Reviewed 08/19/19 @ 15:53 by Ortiz Cueva MD) Grandmother Diabetes Family History: Reports: No pertinent history Paternal Family History: Family History (Last Reviewed 08/19/19 @ 15:53 by Ortiz Cueva MD) Grandmother Diabetes Family History: Reports: No pertinent history Review of Systems ROS: Unable to Obtain - History is limited to what the able to tell me because is a poor informant General: Reports: Malaise. Denies: Chills, Fever Eyes: Denies: Visual changes - bilaterally, Blurred Vision - bilaterally Cardiovascular: Denies: Chest pain, Palpitations Respiratory: Denies: Dyspnea, Cough Gastrointestinal: Denies: Abdominal pain, Nausea, Vomiting Genitourinary: Reports: Dysuria, Hematuria, - - Urgency and incontinence. states he can see the stent protruding from her urethra. Denies: Frequency Musculoskeletal: Denies: Myalgias, Arthralgias, Neck pain, Back pain, Swelling, Extremity Pain, -, - Skin: Denies: Rash, Wounds Neurological: Reports: Weakness Hematologic: Reports: Easy bruising Allergy: Denies: Uticaria, Swelling of the mouth Physical Exam Vital Signs/Narrative: Vital Signs Temp Pulse Resp BP Pulse Ox 09/10/19 16:39 97.5 F L 66 18 160/76 H 98 Inital Vital Signs reviewed: Yes General: Well nourished, Well developed, No Acute Distress Head: Normocephalic, Atraumatic Eyes: Perrl, EOMI. Negative for: Pale conjunctiva, Scleral icterus ENT: Moist mucous membranes Neck: Supple, Nontender Cardiovascular: Regular rate, No murmurs, Irregular Respiratory: No distress, CTA bilaterally, Chest nontender Abdomen: Soft, Nontender, Nondistended, Normal bowel sounds Rectal: Deferred : - - The stent was protruding per urethra. The urethral stent was removed without difficulty. Back: Nontender, Normal Inspection. Negative for: CVA tenderness Extremities: Nontender, No edema Skin: Normal color, No rash Neurological: Alert, Oriented x3, Cranial nerves II-XII grossly intact, Normal Strength, Normal Sensation Psychological: Normal affect Diagnostic/Tx/Re-eval Laboratory Results 09/10/19 09/10/19 09/10/19 16:40 16:40 17:00 WBC 7.4 RBC 3.52 L Hgb 10.8 L Hct 34.9 L MCV 99.1 H MCH 30.7 MCHC 30.9 L RDW Std Deviation 55.4 H RDW Coeff of Silvano 15.2 H Plt Count 359 MPV 10.6 Immature Gran % (Auto) 0.500 Neut % (Auto) 55.5 Lymph % (Auto) 21.2 [place] % (Auto) 10.1 H Eos % (Auto) 11.2 H Baso % (Auto) 1.5 H Absolute Neuts (auto) 4.1 Absolute Lymphs (auto) 1.56 Nucleated RBC % 0 Sodium 141 Potassium 4.2 Chloride 108 H Carbon Dioxide 27.0 Anion Gap 6 BUN 20 H Creatinine 1.32 H Estim Creat Clear Calc 25.22 Est GFR (MDRD) Af Amer 50 L Est GFR (MDRD) Non-Af 41 L BUN/Creatinine Ratio 15.2 Glucose 94 Calcium 8.9 Urine Color Yellow Urine Clarity Cloudy Urine pH 8.0 Ur Specific [place] 1.015 Urine Protein 100 H Urine Glucose (UA) Normal Urine Ketones Negative Urine Occult Blood 250 H Urine Nitrite Negative Urine Bilirubin Negative Urine Urobilinogen Normal Ur Leukocyte Esterase 500 H Urine RBC > 100 SEEN Urine WBC 0 SEEN Ur Squamous Epith Cells 0 SEEN Urine Bacteria 0 SEEN Urine Mucus 0 SEEN BC is unremarkable. Basic metabolic panel reveals elevation of creatinine of 1.32 with a GFR of 41. Urine reveals no evidence of infection. Patient's urologic symptoms were secondary to the displaced stent. - Medical Decision Making was informed. He informed me that the stent was to be removed on Thursday. He stated Dr. Cueva suggested that he removed. He did not feel comfortable doing this. The urethral stent was removed by me without difficulty. Because of her urinary symptoms UA was obtained to assess for infection. There is no evidence of infection based on the results. There is no white count. There is no shift. Will discharge to home to keep scheduled appointment with Dr. Cueva. Prior to discharge patient was complaining of pain. When she was reassessed she has pain in the perineum that radiates up to the left upper quadrant. She really cannot describe the discomfort. There is no radiation to the back. There is no associated symptoms. Suspect this may represent spasm. A opium and belladonna suppository was ordered. She was reassessed 10 minutes and 30 minutes after the insertion of the suppositories. She states there is no resolution but improvement. Patient has not been taking the tramadol she was prescribed. She was given 1 dose of [place] and discharged home. She was instructed to keep her appointment scheduled for Thursday. 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
--- NOTE | 2019-09-10 18:54 | ED.RN ---
PT'S DOES NOT WANT PT TO LEAVE AT THIS TIME. STATES PT IS UNABLE TO GET PAIN UNDER CONTROL. DR BAUM AT BEDSIDE AT THIS TIME.
[2019-09-10] MEDS: oxyCODONE 5 MG Tablet PO (18:57)
[2019-09-10 19:19] VITALS: PULSE 58; RESP 14; O2SAT 95
--- NOTE | 2019-09-10 19:20 | ED.RN ---
DR BAUM CONSULT WITH DR TARIQ. PT TO CALL DR TARIQ IN THE AM IF PATIENT PAIN IS NOT UNDER CONTROL. PATIENT AND PATIENT AGREEABLE AT THIS TIME. PATIENT DISCHARGED COMFORTABLY AT THIS TIME. VITALS WNL. RESPIRATIONS EQUAL AND UNLABORED.
== END 2019-09-10 19:23 | disposition home or self-care (01) ==
PROVIDERS: Emergency Provider Emergency Medicine; Family Provider Internal Medicine; PCP Internal Medicine
DX: T83.122A Displacement of indwelling ureteral stent, initial encounter (principal); T83.84XA Pain due to genitourinary prosthetic devices, implants and grafts, initial encounter; G89.18 Other acute postprocedural pain; R31.0 Gross hematuria; I11.0 Hypertensive heart disease with heart failure; I50.22 Chronic systolic (congestive) heart failure; I48.91 Unspecified atrial fibrillation; E03.9 Hypothyroidism, unspecified; I36.1 Nonrheumatic tricuspid (valve) insufficiency; I35.1 Nonrheumatic aortic (valve) insufficiency; I27.21 Secondary pulmonary arterial hypertension; I43 Cardiomyopathy in diseases classified elsewhere; Z79.01 Long term (current) use of anticoagulants; Z79.899 Other long term (current) drug therapy; Z86.73 Personal history of transient ischemic attack (TIA), and cerebral infarction without residual deficits
CPT/HCPCS: 50386; 80048; 81001; 85025; 99285; P9612; A4216

== ENCOUNTER → 2019-09-12 10:04 | Outpatient (CLI) | payer MEDICARE, OTHER, SELFPAY ==
[2019-09-10 16:39] VITALS: BMI 25.1
--- NOTE | 2019-09-12 10:23 | RAD_ITS ---
STUDY: X-RAY - ABDOMEN/PELVIS REASON FOR EXAM: Female, 83 years old. She left kidney stone TECHNIQUE: 2 frontal views of the abdomen were performed COMPARISON: None. FINDINGS: Normal visualized lung bases. There is an unremarkable bowel gas pattern. There is no demonstrated free abdominal air. The visualized liver, spleen and kidneys are grossly normal in size and morphology. Normal soft tissue structures. Normal visualized osseous structures. RAD/Abdomen Single View IMPRESSION: No intestinal obstruction. Electronically Signed: Osmany Govea, at 19:23 EST Tel , Service support ,
== END ==
PROVIDERS: Family Provider Internal Medicine; PCP Internal Medicine; Referring Provider Urology; Visit Provider Urology
DX: N20.1 Calculus of ureter (principal)
CPT/HCPCS: 74018

== ENCOUNTER → 2019-09-26 15:00 | Outpatient (CLI) | payer MEDICARE, OTHER, SELFPAY ==
[2019-09-26 12:13] VITALS: BMI 24.9
--- NOTE | 2019-09-26 15:10 | RAD_ITS ---
STUDY: X-RAY CHEST REASON FOR EXAM: Female, 84 years old. Shortness of breath, history of breast cancer with mastectomy. TECHNIQUE: PA and lateral views of the chest. COMPARISON: 08/20/2019. FINDINGS: There is persistent right upper lobe groundglass opacity consistent with residual infiltrate. There has been near complete resolution of previously seen left apical infiltrate. Remainder of the lung david are clear. There is no demonstrated pleural abnormality. Normal size heart. Normal mediastinum and adithya. Normal visualized pulmonary arteries. There is atherosclerotic calcification of the aortic arch with tortuosity. There is demineralization of the osseous structures. 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 There is no demonstrated abnormality of the visualized soft tissue structures of the upper abdomen. RAD/Chest PA and Lateral IMPRESSION: Resolution of previously seen left apical pneumonia. Residual right apical infiltrate with overall improvement as described above. Electronically Signed: Jess Sethi MD at 3:12 EST , Service support ,
[2019-09-26 16:22] LABS: Anion Gap 7 (5-15); BUN 20 mg/dL (7-18); BUN/Creat Ratio 14.9 RATIO (10-20); Chloride 104 mmol/L (98-107); Creatinine, Serum 1.34 mg/dL (0.55-1.02); EST Glomerular Filtration Rate 40 mL/min (>60); Est Glom Filt Rate - Afr Amer 49 mL/min (>60); Glucose 79 mg/dL (74-106); Potassium 3.6 mmol/L (3.5-5.1); Sodium Level 140 mmol/L (136-145)
== END ==
PROVIDERS: Family Provider Internal Medicine; PCP Internal Medicine; Referring Provider Internal Medicine Cardiovascular Disease; Visit Provider Internal Medicine Cardiovascular Disease
DX: I11.0 Hypertensive heart disease with heart failure (principal); I50.43 Acute on chronic combined systolic (congestive) and diastolic (congestive) heart failure
CPT/HCPCS: 36415; 71046; 80048

== ENCOUNTER 2019-10-18 13:30 | Outpatient (RCR) | payer MEDICARE, OTHER, SELFPAY ==
[2019-07-28 00:04] VITALS: BMI 26.0
[2019-09-26 12:13] VITALS: BMI 24.9
[2019-10-18 15:11] LABS: Anion Gap 4 (5-15); BUN 19 mg/dL (7-18); BUN/Creat Ratio 11.2 RATIO (10-20); Chloride 106 mmol/L (98-107); EST Glomerular Filtration Rate 31 mL/min (>60); Est Glom Filt Rate - Afr Amer 37 mL/min (>60); Glucose 84 mg/dL (74-106); Sodium Level 139 mmol/L (136-145)
== END 2019-10-18 18:00 | disposition home or self-care (01) ==
LOC: LAB 13:30
PROVIDERS: Family Provider Internal Medicine; PCP Internal Medicine; Referring Provider Internal Medicine Cardiovascular Disease; Visit Provider Internal Medicine Cardiovascular Disease
DX: N39.0 Urinary tract infection, site not specified (principal); I50.43 Acute on chronic combined systolic (congestive) and diastolic (congestive) heart failure; I42.8 Other cardiomyopathies
CPT/HCPCS: 36415; 80048; 87077; 87086; 87088; 87186

== ENCOUNTER → 2019-11-17 14:35 | Outpatient (CLI) | payer MEDICARE, OTHER, SELFPAY ==
[2019-09-26 12:13] VITALS: BMI 24.9
--- NOTE | 2019-11-17 14:39 | CT_ITS ---
STUDY: CT ABDOMEN AND PELVIS WITHOUT CONTRAST REASON FOR EXAM: Female, 84 years old. RLQ PAIN X2 WEEKS RADIATION DOSAGE (If Supplied By Facility): CTDIvol = ( 6.98 ) mGy, DLP = ( 348.73 ) mGycm TECHNIQUE: Transaxial images were obtained from the dome of the diaphragm to the symphysis pubis without oral contrast, and without intravenous contrast. Sagittal and coronal images were reconstructed. Individualized dose optimization techniques were used for this CT. COMPARISON: August 19, 2019 FINDINGS: The visualized lung bases are unremarkable. The visualized portions of the heart are within normal limits. There is right mastectomy with external prosthesis. Normal liver. Normal gallbladder and extrahepatic biliary system. Normal spleen. There is diffuse atrophy of the pancreas. Normal bilateral adrenal glands. There is 0.5 cm stone at the upper pole of the right kidney. There is 0.4 cm stone at the lower pole of the left kidney. There is no hydronephrosis. Normal visualized stomach. Normal small intestine. Normal colon. There is abundant stool. There is non-visualization of the appendix. There is diffuse atherosclerotic calcification of the abdominal aorta, without a demonstrated aneurysm. Normal inferior vena cava. Normal retroperitoneum. Normal urinary bladder. There is atrophy of the uterus. There is no free fluid in the abdomen or pelvis. Normal abdominal wall. Levoscoliosis with degenerative change of the spine. There is degenerative change of the hips. CT/Abdomen/Pelvis without Cont IMPRESSION: Bilateral renal stones. No hydronephrosis. Abundant stool. No obstruction. Electronically Signed: Zeb Rossi MD at 16:13 EST , Service support ,
== END ==
PROVIDERS: Family Provider Internal Medicine; PCP Internal Medicine; Referring Provider Urology; Visit Provider Urology
DX: N20.0 Calculus of kidney (principal); R10.31 Right lower quadrant pain
CPT/HCPCS: 74176

== ENCOUNTER 2019-11-21 14:05 | Outpatient (RCR) | payer MEDICARE, OTHER, SELFPAY ==
[2019-09-26 12:13] VITALS: BMI 24.9
[2019-11-21 15:25] LABS: Absolute Lymphocyte Count 1.04 X10^3/uL (0.83-4.51); Absolute Neutrophil Count 3.4 X10^3/uL (2.0-7.7); Basophil# 0.07 X10^3/uL; Basophil% 1.3 % (0-1); Eosinophil# 0.26 X10^3/uL; Eosinophils% 4.8 % (0-5); Hematocrit 39.2 % (37-47); Hemoglobin 12.1 g/dL (12.0-15.0); Lymphocyte # 1.04 X10^3/ul (4.0); Lymphocyte % 19.3 % (19-41); Mean Corp Hgb Conc 30.9 g/dL (32-36); Mean Corpuscular Hgb 29.2 pg (27.0-32.0); Mean Corpuscular Volume 94.5 fL (81-99); Mean Platelet Vol. 11.8 fl (6.2-12.0); Monocyte# 0.65 X10^3/uL; Monocyte% 12.1 % (0-10); NRBC Flagged by Analyzer 0 % (0-5); Neutrophil # 3.35 X10^3/uL (2.7-7.7); Neutrophil % 62.3 % (47-70); Platelet Count 253 K/mm3 (150-450); RBC Distribution Width CV 16.2 % (11.6-14.6); RBC Distribution Width SD 56.6 fl (35.1-43.9); Red Blood Count 4.15 M/mm3 (4.2-5.4); White Blood Count 5.4 K/mm3 (4.4-11.0)
[2019-11-21 16:15] LABS: Anion Gap 4 (5-15); BUN 15 mg/dL (7-18); BUN/Creat Ratio 10.8 RATIO (10-20); Calcium,Total 9.4 mg/dL (8.5-10.1); Chloride 108 mmol/L (98-107); Creatinine, Serum 1.39 mg/dL (0.55-1.02); EST Glomerular Filtration Rate 39 mL/min (>60); Est Glom Filt Rate - Afr Amer 47 mL/min (>60); Glucose 85 mg/dL (74-106); Sodium Level 139 mmol/L (136-145)
== END 2019-11-21 18:00 | disposition home or self-care (01) ==
LOC: LAB 14:05
PROVIDERS: Family Provider Internal Medicine; PCP Internal Medicine; Referring Provider Internal Medicine Cardiovascular Disease; Visit Provider Internal Medicine Cardiovascular Disease
DX: I11.0 Hypertensive heart disease with heart failure (principal); I50.43 Acute on chronic combined systolic (congestive) and diastolic (congestive) heart failure; R53.81 Other malaise; I42.8 Other cardiomyopathies; I48.0 Paroxysmal atrial fibrillation; I44.7 Left bundle-branch block, unspecified; Z86.73 Personal history of transient ischemic attack (TIA), and cerebral infarction without residual deficits; Z79.01 Long term (current) use of anticoagulants; Z85.3 Personal history of malignant neoplasm of breast
CPT/HCPCS: 36415; 80048; 85025

== ENCOUNTER 2019-12-23 08:32 | Outpatient (RCR) | payer MEDICARE, OTHER, SELFPAY ==
[2019-12-13 14:42] VITALS: BMI 24.7
== END 2019-12-23 08:33 | disposition home or self-care (01) ==
LOC: PT 08:32
PROVIDERS: Family Provider Internal Medicine; PCP Internal Medicine; Referring Provider Family Medicine Geriatric Medicine; Visit Provider Family Medicine Geriatric Medicine
DX: R53.81 Other malaise (principal)

== ENCOUNTER 2020-01-10 13:43 | Outpatient (RCR) | payer MEDICARE, OTHER, SELFPAY ==
[2019-09-26 12:13] VITALS: BMI 24.9
[2019-12-13 14:42] VITALS: BMI 24.7
[2020-01-10 15:45] LABS: Anion Gap 5 (5-15); BUN 15 mg/dL (7-18); BUN/Creat Ratio 10.5 RATIO (10-20); Chloride 107 mmol/L (98-107); Creatinine, Serum 1.43 mg/dL (0.55-1.02); EST Glomerular Filtration Rate 37 mL/min (>60); Est Glom Filt Rate - Afr Amer 45 mL/min (>60); Glucose 95 mg/dL (74-106); Potassium 3.8 mmol/L (3.5-5.1); Sodium Level 141 mmol/L (136-145)
== END 2020-01-10 18:00 | disposition home or self-care (01) ==
LOC: LAB 13:43
PROVIDERS: Family Provider Internal Medicine; PCP Internal Medicine; Referring Provider Internal Medicine Cardiovascular Disease; Visit Provider Internal Medicine Cardiovascular Disease
DX: I48.0 Paroxysmal atrial fibrillation (principal); I10 Essential (primary) hypertension; Z79.01 Long term (current) use of anticoagulants
CPT/HCPCS: 36415; 80048

== ENCOUNTER 2020-02-17 11:46 | Inpatient (IN) | payer MEDICARE, OTHER, SELFPAY ==
[2019-12-13 14:42] VITALS: BMI 24.7
[2020-02-17] VITALS (11 sets, daily range): BP systolic 108–122; BP diastolic 51–71; PULSE 60–75; RESP 16–20; TEMP 36.4–36.8; O2SAT 81–98; BMI 26.2; BMI 23.2; BMI 23.3
--- NOTE | 2020-02-17 11:50 | ED.RN ---
OLD EKG GIVEN TO DR SHARMA
--- NOTE | 2020-02-17 11:53 | EKG12_ITS ---
Test Reason : SOB Blood Pressure : / mmHG Vent. Rate : 064 BPM Atrial Rate : 064 BPM P-R Int : 208 ms QRS Dur : 174 ms QT Int : 496 ms P-R-T Axes : 043 -46 121 degrees QTc Int : 511 ms Normal sinus rhythm with sinus arrhythmia Left axis deviation Left bundle branch block Abnormal ECG Confirmed by JOSH PARADA, DAVID ([id number]), editor map TRACY MINOR ([id number]) on 02/21/2020 9:06:43 AM Referred By: EDITH Confirmed By:DAVID MORENO MD
--- NOTE | 2020-02-17 11:58 | ED.VIS.GEN ---
History of Present Illness Chief Complaint: Shortness of Breath Informant: Patient Narrative: Patient brought in by secondary to shortness of breath. is not at bedside and did not answer his cell phone when I called. Patient has history of dementia and history is limited. She reports shortness of breath that she believes got worse last night. She states she gets this frequently. She denies chest pain or palpitations. She states her thinks that she may have a blood clot in her lung. She reports mild cough which is chronic for her secondary to dry mouth. She denies fever or chills. - Past Medical History (1) CHF (congestive heart failure) Status: Chronic (2) CVA (cerebral vascular accident) Status: Chronic Comment: Expressive aphasia (3) Essential (primary) hypertension Status: Chronic (4) History of breast cancer Status: Chronic (5) Left bundle branch block (LBBB) Status: Chronic (6) half-way (current) use of anticoagulants Status: Chronic (7) Non-ischemic cardiomyopathy Status: Chronic (8) Paroxysmal atrial fibrillation Status: Chronic Past Medical History - Allergies and Home Meds Allergies/Adverse Reactions: Allergies Penicillins [PCN] Allergy (Verified 02/17/20 11:55) Rash Primary Care Physician: Ben Loomis MD [Primary Care Provider] - Prior records reviewed: Yes Surgical History: appendectomy, cataract, mastectomy - Right., - - Lumpectomy, tubal ligation, right breast mass biopsy. Lives: Spouse/ Significant Other Smoking Status: Never smoker - Family History Maternal Family History: Family History (Last Reviewed 12/13/19 @ 14:42 by Stephanie Lockwood) Grandmother Diabetes Family History: Reports: No pertinent history Paternal Family History: Family History (Last Reviewed 12/13/19 @ 14:42 by Stephanie Lockwood) Grandmother Diabetes Family History: Reports: No pertinent history Review of Systems General: Denies: Chills, Fever Eyes: Denies: Visual changes - bilaterally ENT: Denies: Bilateral ear pain Cardiovascular: Denies: Chest pain, Palpitations Respiratory: Reports: Dyspnea, Cough. Denies: Sputum Gastrointestinal: Denies: Abdominal pain, Nausea, Vomiting, Diarrhea Genitourinary: Denies: Dysuria Musculoskeletal: Denies: Swelling, Extremity Pain Skin: Denies: Rash Neurological: Denies: Headache Allergy: Denies: Uticaria Physical Exam Vital Signs/Narrative: Vital Signs Temp Pulse Resp BP Pulse Ox 02/17/20 11:54 97.9 F 70 19 H 121/71 H 96 02/17/20 11:50 97.9 F 64 18 121/71 H 81 Inital Vital Signs reviewed: Yes General: Well nourished, Well developed Head: Normocephalic ENT: Moist mucous membranes Neck: Supple Cardiovascular: Regular rate, Regular rhythm Respiratory: No distress, - - Mild crackles bilateral bases Abdomen: Soft, Nontender Skin: Normal color Neurological: Alert - History of dementia at baseline Psychological: Normal affect Diagnostic/Tx/Re-eval Impressions Chest X-Ray 02/17/20 12:15 IMPRESSION: Ill-defined subpleural groundglass opacities are seen more prominent in the right upper lobe, may represent atypical pneumonia or viral pneumonia (COVID-19 ?). Electronically Signed: Elise Mayorga, at 12:29 EDT Tel , Service support , Chest CTA 02/17/20 12:32 IMPRESSION: No demonstrated pulmonary embolism or arterial dissection. There is new compression fracture of T11 most likely due to osteoporosis and can be treated with kyphoplasty. Ill-defined subpleural groundglass opacities are seen more prominent in the right upper lobe, may represent ARDS or viral pneumonia (COVID-19 ?). Electronically Signed: Elise Mayorga, at 13:50 EDT Tel , Service support , 02/17/20 12:15 Chest 1 View (Portable) [RAD] Stat 02/17/20 12:32 CTA Chest W/WO Contrast [CT] Stat Laboratory Results 02/17/20 02/17/20 02/17/20 11:55 11:55 11:55 WBC 7.9 RBC 3.49 L Hgb 10.5 L Hct 33.2 L MCV 95.1 MCH 30.1 MCHC 31.6 L RDW Std Deviation 54.6 H RDW Coeff of Silvano 15.9 H Plt Count 226 MPV 11.2 Immature Gran % (Auto) 0.500 Neut % (Auto) 76.8 H Lymph % (Auto) 10.5 L Corson % (Auto) 7.7 Eos % (Auto) 3.4 Baso % (Auto) 1.1 H Absolute Neuts (auto) 6.1 Absolute Lymphs (auto) 0.83 Nucleated RBC % 0 D-Dimer Quant (PE/DVT) 1.13 H* Sodium 140 Potassium 3.8 Chloride 108 H Carbon Dioxide 27.0 Anion Gap 5 BUN 16 Creatinine 1.19 H Estim Creat Clear Calc 27.50 Est GFR (MDRD) Af Amer 56 L Est GFR (MDRD) Non-Af 46 L BUN/Creatinine Ratio 13.4 Glucose 108 H Lactic Acid Calcium 8.9 Troponin I < 0.015 B-Natriuretic Peptide 02/17/20 02/17/20 11:55 11:55 WBC RBC Hgb Hct MCV MCH MCHC RDW Std Deviation RDW Coeff of Silvano Plt Count MPV Immature Gran % (Auto) Neut % (Auto) Lymph % (Auto) Corson % (Auto) Eos % (Auto) Baso % (Auto) Absolute Neuts (auto) Absolute Lymphs (auto) Nucleated RBC % D-Dimer Quant (PE/DVT) Sodium Potassium Chloride Carbon Dioxide Anion Gap BUN Creatinine Estim Creat Clear Calc Est GFR (MDRD) Af Amer Est GFR (MDRD) Non-Af BUN/Creatinine Ratio Glucose Lactic Acid 1.2 Calcium Troponin I B-Natriuretic Peptide 1406.0 H - EKG Initial EKG Interpretation: Sinus Rhythm - Sinus at 64 with left bundle branch block. No acute ischemia. Unchanged compared to prior study of July 2019. - Medical Decision Making Patient was initially placed on 6 L nasal cannula. O2 sats did rise to the high 90s. She is currently on 4 L nasal cannula and satting in the mid to high 90s. I was able to obtain history from who states that she felt well last night but woke up this morning weak and hypoxic. She was not complaining of chest pain and did not practically feel short of breath. On review of records patient had an admission last July with almost the exact same presentation. At that time she was diuresed and improved. I spoke with the patient's lens mold setter, Dr. Bullard. He agrees the patient should be diuresed, but this is not likely to be infectious. Patient received 40 mg of Lasix now and will receive 40 mg of IV Lasix twice daily tomorrow. I spoken with the hospitalist. ED Disposition - Plan for ED Patient: Disposition: Acute Care Hospital [facility] Diagnosis: CHF (congestive heart failure) Referrals: Ben Loomis MD [Primary Care Provider] -
[2020-02-17 12:09] LABS: Absolute Lymphocyte Count 0.83 X10^3/uL (0.83-4.51); Absolute Neutrophil Count 6.1 X10^3/uL (2.0-7.7); Basophil# 0.09 X10^3/uL; Basophil% 1.1 % (0-1); Eosinophil# 0.27 X10^3/uL; Eosinophils% 3.4 % (0-5); Hematocrit 33.2 % (37-47); Hemoglobin 10.5 g/dL (12.0-15.0); Lymphocyte # 0.83 X10^3/ul (4.0); Lymphocyte % 10.5 % (19-41); Mean Corp Hgb Conc 31.6 g/dL (32-36); Mean Corpuscular Hgb 30.1 pg (27.0-32.0); Mean Corpuscular Volume 95.1 fL (81-99); Mean Platelet Vol. 11.2 fl (6.2-12.0); Monocyte# 0.61 X10^3/uL; Monocyte% 7.7 % (0-10); NRBC Flagged by Analyzer 0 % (0-5); Neutrophil # 6.09 X10^3/uL (2.7-7.7); Neutrophil % 76.8 % (47-70); Platelet Count 226 K/mm3 (150-450); RBC Distribution Width CV 15.9 % (11.6-14.6); RBC Distribution Width SD 54.6 fl (35.1-43.9); Red Blood Count 3.49 M/mm3 (4.2-5.4); White Blood Count 7.9 K/mm3 (4.4-11.0)
--- NOTE | 2020-02-17 12:15 | RAD_ITS ---
STUDY: X-RAY CHEST REASON FOR EXAM: Female, 84 years old. LOW PULSE OX -- HX OF HTN AND CHF, BREAST CANCER TECHNIQUE: Single AP portable view of the chest. COMPARISON: None. FINDINGS: Ill-defined subpleural groundglass opacities are seen more prominent in the right upper lobe, may represent atypical pneumonia or viral pneumonia (COVID-19 ?). There is no demonstrated pleural abnormality. Normal size heart. Normal mediastinum and adithya. Normal visualized pulmonary arteries. Normal visualized aortic arch and descending thoracic aorta. Normal visualized thoracic spine. There is degenerative osteoarthritis of the bilateral shoulders. There is no demonstrated abnormality of the visualized soft tissue structures of the upper abdomen. RAD/Chest 1 View (Portable) IMPRESSION: Ill-defined subpleural groundglass opacities are seen more prominent in the right upper lobe, may represent atypical pneumonia or viral pneumonia (COVID-19 ?). Electronically Signed: Elise Mayorga, at 12:29 EDT Tel , Service support ,
[2020-02-17 12:26] LABS: D-Dimer Quantitative (DVT/PE) 1.13 FEU/ug/m (0.27-0.49)
[2020-02-17 12:30] LABS: Anion Gap 5 (5-15); BUN 16 mg/dL (7-18); BUN/Creat Ratio 13.4 RATIO (10-20); Calcium,Total 8.9 mg/dL (8.5-10.1); Chloride 108 mmol/L (98-107); Creatinine, Serum 1.19 mg/dL (0.55-1.02); EST Glomerular Filtration Rate 46 mL/min (>60); Est Glom Filt Rate - Afr Amer 56 mL/min (>60); Glucose 108 mg/dL (74-106); Potassium 3.8 mmol/L (3.5-5.1); Sodium Level 140 mmol/L (136-145)
--- NOTE | 2020-02-17 12:32 | CT_ITS ---
STUDY: CTA CHEST REASON FOR EXAM: Female, 84 years old. SOB AND HYPOXIA. PRIOR BREAST CANCER ON RIGHT RADIATION DOSAGE (If Supplied By Facility): CTDIvol = ( 12.37 ) mGy, DLP = ( 331.43 ) mGycm TECHNIQUE: The examination was performed with the intravenous administration of 75 ML ISOVUE 370. Post-processing of the angiographic images was performed, with multiplanar reformation and 3D reconstruction. Individualized dose optimization techniques were used for this CT. COMPARISON: 07/27/2019 FINDINGS: Normal enhancement of the main pulmonary artery and right and left pulmonary arteries. Normal enhancement of the bilateral peripheral pulmonary arteries. There is no demonstrated pulmonary embolism. Normal thoracic aorta and visualized great vessels. There is no demonstrated aortic dissection. Normal heart and pericardium. There is right paratracheal lymphadenopathy is stable since the previous study. Normal hilar regions. Normal visualized trachea and bronchi. The lungs are well expanded. Ill-defined subpleural groundglass opacities are seen more prominent in the right upper lobe, may represent ARDS or viral pneumonia (COVID-19 ?). Small bilateral pleural effusions are noted more prominent on the right side. Normal chest wall structures. There is new compression fracture of T11. Normal visualized upper abdomen. CT/CTA Chest W/WO Contrast IMPRESSION: No demonstrated pulmonary embolism or arterial dissection. There is new compression fracture of T11 most likely due to osteoporosis and can be treated with kyphoplasty. Ill-defined subpleural groundglass opacities are seen more prominent in the right upper lobe, may represent ARDS or viral pneumonia (COVID-19 ?). Electronically Signed: Elise Mayorga, at 13:50 EDT Tel , Service support ,
[2020-02-17 12:36] LABS: Lactic Acid 1.2 mmol/L (0.4-1.9)
[2020-02-17] MEDS: Furosemide 40 MG/4 ML Vial IV ×2 (14:46→17:44)
--- NOTE | 2020-02-17 15:08 | PCM.HP.STD ---
Problem List (1) CHF (congestive heart failure) Status: Chronic (2) Debility Status: Chronic (3) Non-ischemic cardiomyopathy Status: Chronic (4) Paroxysmal atrial fibrillation Status: Chronic (5) Left bundle branch block (LBBB) Status: Chronic (6) Essential (primary) hypertension Status: Chronic (7) CVA (cerebral vascular accident) Status: Chronic Comment: Expressive aphasia (8) History of breast cancer Status: Chronic History of Present Illness Date of Admission: 02/17/20 Chief Complaint: Shortness of breath. The patient is a 84 year old F with past medical history as mentioned above presented to the emergency room because of shortness of breath. Although patient was alert and oriented x3, but she was not able to provide with history. She does have a history of dementia but she knows her full name, date of , location and date. Patient mentioned that her shortness of breath got worse last night but she mentioned that it is not significantly worse than usual. She denied chest pain or palpitation. She reported mild dry cough which is chronic, no sputum production. Reportedly according to ER physician, her mentioned that her pulse ox was 78% on room air at home. She denied orthopnea or PND. She denied fever or chills. She denied sick contacts or recent travel. She mentioned that she has been home for the last month without going outside and no one sick at home. She had a history of chronic systolic CHF due to nonischemic cardiomyopathy and her ejection fraction was 35% on May,, has been on Lasix every other day as well as beta-blockers. She had a history of paroxysmal atrial fibrillation and she has been on amiodarone and Coreg for rate control and Eliquis for anticoagulation and her heart rate has been stable. She has history of hypothyroidism, has been on levothyroxine and her TSH was normal on August,. In the emergency department, patient was dyspneic, initially required up to 6 L of oxygen and then it went down to 5 L. She was afebrile, blood pressure and heart rate were stable. Routine blood work was remarkable for hemoglobin of 10.5 g/dL which is chronic, creatinine 1.19 which is also chronic. EKG revealed normal sinus rhythm, LBBB which is chronic, no acute segment changes compared to previous EKGs. Troponin was negative and BNP was 1406. Chest x-ray revealed bilateral upper lobe groundglass opacities more prominent on the right upper lobe which looks almost similar to previous chest x-ray, also showed mild lower lobe pulmonary vascular congestion. She was found to have elevated d-dimer for which CTA chest done and showed no PE or dissection, revealed same findings on the chest x-ray as well as new compression fracture of T11. She is being admitted for acute on chronic systolic CHF complicated by acute hypoxic respiratory failure and she was found to have incidental new compression fracture of T11 although patient denied any back pain. Past Medical History Past Medical History (Chronic Problems): Chronic Problems (Last Updated 02/17/20 @ 15:[address] 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 Jose Radford MD) Non-ischemic cardiomyopathy (Chronic) I42.8 Paroxysmal atrial fibrillation (Chronic) I48.0 Left bundle branch block (LBBB) (Chronic) I44.7 Essential (primary) hypertension (Chronic) I10 CVA (cerebral vascular accident) (Chronic) I63.9 Expressive aphasia History of breast cancer (Chronic) Z85.3 Acute hypoxemic respiratory failure J96.01 Dementia F03.90 Expressive aphasia R47.01 Hypothyroidism E03.9 Hypothyroidism E03.9 Breast cancer C50.919 Left ureteral calculus N20.1 Vascular dementia F01.50 Secondary pulmonary arterial hypertension (Inactive) I27.21 Allergies Penicillins [PCN] Allergy (Verified 02/17/20 11:55) Rash Home Medications: Ambulatory Orders Medication Instructions Recorded cyclobenzaprine 5 mg tablet 5 mg PO BID tab 05/30/19 Calcium Citrate/Vitamin D3 1 tab PO TID 08/19/19 [Calcium Cit 315-Vit D3 200 Tab] Cholecalciferol (Vitamin D3) 2,000 unit PO DAILY 08/19/19 [D3-1999] Levothyroxine Sodium [Levoxyl] 50 mcg PO DAILY 08/19/19 Memantine Hydrochloride [Namenda] 10 mg PO BID 08/19/19 Acetaminophen [Tylenol] 1,000 mg PO Q6H PRN PRN tab 09/08/19 Azelastine HCl [Astelin] 1 spray NASAL BID PRN nasal.sry 09/08/19 Duloxetine Hcl [Cymbalta] 20 mg PO QHS cap 09/08/19 apixaban 2.5 mg tablet 2.5 mg PO BID #180 tab 09/23/19 amiodarone 200 mg tablet 200 mg PO DAILY #90 tab 09/26/19 aspirin 81 mg tablet,delayed 81 mg PO DAILY 09/26/19 release docusate sodium 100 mg capsule 200 mg PO DAILY cap 09/26/19 carvedilol 3.125 mg tablet 3.125 mg PO BID #180 tab 12/13/19 polyethylene glycol 3350 17 17 g PO DAILY PRN 12/13/19 gram/dose oral powder potassium chloride 10 mEq 10 meq PO MOWEFR tab 12/13/19 tablet,extended release Cyanocobalamin [Vitamin B12] 1,000 mcg PO DAILY@0800 02/17/20 Furosemide [Lasix] 20 mg PO MOWEFR 02/17/20 Psyllium [Metamucil] 1 packet PO DAILY 02/17/20 traMADol [Ultram] 100 mg PO Q6H PRN PRN 02/17/20 Surgical History: Surgical History (Last Reviewed 12/13/19 @ 14:42 by Stephanie Lockwood) H/O right mastectomy Z90.11 S/P ureteral stent placement Onset Date: 08/20/19 Z96.0 Surgical History: appendectomy, cataract, mastectomy - Right., - - Lumpectomy, tubal ligation, right breast mass biopsy. 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 Jose Radford MD) Grandmother Diabetes History Items: No pertinent history Paternal Family History: Family History (Last Reviewed 02/17/20 @ 15:[address] Jose Radford MD) Grandmother Diabetes History Items: No pertinent history Review of Systems Constitutional: Denies: Anorexia, Chills, Fever, Weakness Eyes: Denies: Blurred vision, Double vision, Drainage, Redness HEENT: Denies: Difficulty Hearing, Ear Pain, Eye Pain, Nasal Congestion, Sore Throat Cardiovascular: Denies: Chest Pain, Chest Pressure, Chest Tightness, Light Headedness, Palpitations, Syncope Respiratory: Reports: Cough, Shortness of Breath. Denies: Hemoptysis, Pleuritic Pain, Sputum production, Wheezing Gastrointestinal: Denies: Abdominal Pain, Constipation, Diarrhea, Nausea, Vomiting Genitourinary: Denies: Dysuria, Frequency, Hematuria Musculoskeletal: Denies: Arm Pain, Back Pain, Foot Pain Skin: Denies: Dryness, Rash Neurological: Denies: Balance problems, Blurred vision, Double vision, Change in Speech, Slurred speech, Confusion, Headaches, Incoordination Psychiatric: Denies: Anxiety, Depression Endocrine: Denies: Change in Body Habitus, Polydipsia, Polyuria VTE Information - Inpt Only VTE Present on Admission: No VTE Mechan Device Prophylaxis: None VTE Pharm Prophylaxis ordered?: Yes - Physical Exam Vitals/I&O's: Vital Signs Temp Pulse Resp BP Pulse Ox 97.8 F 62 18 108/70 96 02/17/20 13:21 02/17/20 13:21 02/17/20 13:21 02/17/20 13:21 02/17/20 13:46 Oxygen Flow Rate (L/min) 5 Oxygen Delivery Method Nasal Cannula Weight: 138 lb 7.205 oz Body Mass Index (BMI) 26.2 General: Alert, Oriented x3, Cooperative, - - Minimally short of breath. HEENT: Atraumatic, PERRLA, EOMI, Normocephalic Oral: Moist Mucosa, No Gingival or Mucosal Lesions/ Ulcerations Neck: Supple, No JVD, Negative Carotid Bruits, Trachea Midline, Thyroid Normal Size and Texture Lungs: No rhonchi, No wheeze, Diminished, Rales, Short of Breath, - - Decreased breath sounds bilateral, faint crackles. Cardiovascular: Regular rate, Regular Rhythm, Normal S1, Normal S2, No murmurs, PMI Normal Abdomen: Bowel Sounds Present, Soft, Non Tender, Non-Distended, No Hepato-splenomegaly Extremities: No clubbing, No cyanosis, No edema Skin: No rashes, No breakdown Lymphatic: No Cervical, Supraclavicular, or Inguinal Adenopathy Neurological: Cranial nerves II-XII grossly intact, Motor Exam 5/5 strength throughout Psych/Mental Status: Normal Affect, Appropriate, Alert and oriented to time, place, person, mood and affect Laboratory Results 02/17/20 11:55: WBC 7.9, RBC 3.49 L, Hgb 10.5 L, Hct 33.2 L, MCV 95.1, MCH 30.1, MCHC 31.6 L, RDW Std Deviation 54.6 H, RDW Coeff of Silvano 15.9 H, Plt Count 226, MPV 11.2, Immature Gran % (Auto) 0.500, Neut % (Auto) 76.8 H, Lymph % (Auto) 10.5 L, [place] % (Auto) 7.7, Eos % (Auto) 3.4, Baso % (Auto) 1.1 H, Absolute Neuts (auto) 6.1, Absolute Lymphs (auto) 0.83, Nucleated RBC % 0 02/17/20 11:55: D-Dimer Quant (PE/DVT) 1.13 H* 02/17/20 11:55: Sodium 140, Potassium 3.8, Chloride 108 H, Carbon Dioxide 27.0, Anion Gap 5, BUN 16, Creatinine 1.19 H, Estim Creat Clear Calc 27.50, Est GFR (MDRD) Af Amer 56 L, Est GFR (MDRD) Non-Af 46 L, BUN/Creatinine Ratio 13.4, Glucose 108 H, Calcium 8.9, Troponin I < 0.015 02/17/20 11:55: Lactic Acid 1.2 02/17/20 11:55: B-Natriuretic Peptide 1406.0 H Clinical Impression(s) from Imaging Studies Chest X-Ray 02/17/20 12:15 IMPRESSION: Ill-defined subpleural groundglass opacities are seen more prominent in the right upper lobe, may represent atypical pneumonia or viral pneumonia (COVID-19 ?). Electronically Signed: Elise Mayorga, at 12:29 EDT Tel , Service support , Chest CTA 02/17/20 12:32 IMPRESSION: No demonstrated pulmonary embolism or arterial dissection. There is new compression fracture of T11 most likely due to osteoporosis and can be treated with kyphoplasty. Ill-defined subpleural groundglass opacities are seen more prominent in the right upper lobe, may represent ARDS or viral pneumonia (COVID-19 ?). Electronically Signed: Elise Mayorga, at 13:50 EDT Tel , Service support , Assessment/Plan This is an 84 years old female patient presented to the emergency room because of worsening shortness of breath and pulse ox of 78% on room air that was reported by patient's , found to have findings consistent with acute on chronic systolic CHF complicated by acute hypoxic respiratory failure and also found to have incidental finding of compression fracture of T11. #1 acute on chronic systolic CHF: Chest x-ray and CTA chest reviewed as above. Patient denied any sick contacts or recent travel. At this time, I doubt coronavirus infection. Chest x-ray revealed chronic bilateral upper lobe findings and I doubt acute pneumonia at this time. Patient denied any significant cough or sputum production, denied fever or chills, no leukocytosis. EKG revealed normal sinus rhythm, LBBB, no acute changes. Troponin is negative, BNP elevated. Plan: Admit to PCU, cardiac monitoring, fluid restriction to less than 5000 cc daily, start IV Lasix, input output chart, albuterol PRN, continue Coreg, repeat CBC and BMP tomorrow morning, PT OT evaluation and treatment. #2 acute hypoxic respiratory failure: Secondary to #1 in addition to history of obstructive sleep apnea. In the last several months, she is not wearing oxygen at home but before that, she was on oxygen intermittently. In the emergency department today, initially required up to 6 L but now it is down to 5 L. Patient does not look very short of breath or dyspneic. Plan: IV diuresis, incentive spirometer, chest physiotherapy, oxygen by nasal cannula to keep O2 saturation more than 92%. #3 incidental finding of new compression fracture of T11: Incidental finding on CTA chest. Patient denied any pain in her back. Likely due to osteoporosis. Plan for pain control, PT OT. #4 chronic systolic CHF/nonischemic cardiomyopathy: With acute exacerbation as above. She had 2D echocardiogram on May, that revealed ejection fraction of 35%. Plan for IV diuresis, continue Coreg. Patient is not on TENA inhibitor because of chronic disease. #5 paroxysmal atrial fibrillation: Rate is controlled, continue amiodarone and Coreg for rate control, continue Eliquis for anticoagulation. #6 stage III chronic kidney disease: Baseline creatinine has been around 1.2 to 1.7 mg/dL. Admission creatinine is 1.19, stable at baseline. #7 history of breast cancer: Status post mastectomy, stable in remission. #8 hypertension: Blood pressure stable, continue Coreg and IV Lasix as above. #9 dementia: Patient is alert and oriented x3, continue Namenda. #10 DVT prophylaxis: Continue Eliquis. This note was generated with [employer] dictation software. It may contain incorrect words, spelling, and punctuation that were not noted in checking the note before signing. Inpatient E&M: 05039 Init Hosp L3
[2020-02-17 16:44] LABS: International Normalized Ratio 1.4; Prothrombin Time (Protime)PT. 16.7 SECONDS (11.7-14.9)
[2020-02-17] MEDS: Carvedilol 3.125 MG TABLET PO (21:23)
[2020-02-17] MEDS: DULoxetine Hcl 20 MG Capsule PO (21:23)
[2020-02-17] MEDS: cycloBENZAPRine HCl 5 MG TABLET PO (21:23)
[2020-02-17] MEDS: APIXABAN 2.5 MG TABLET PO (21:24)
[2020-02-17] MEDS: Memantine Hydrochloride 10 MG Tablet PO (21:24)
[2020-02-17] MEDS: Polyethylene Glycol 3350 17 GM PACKET PO (23:02)
[2020-02-17] MEDS: Ibuprofen 200 MG Tablet PO (23:02)
[2020-02-17] MEDS: traMADol 50 MG Tablet PO (23:02)
[2020-02-18] VITALS (10 sets, daily range): BP systolic 93–111; BP diastolic 43–60; PULSE 56–82; RESP 18; TEMP 36.6–36.9; O2SAT 92–98
[2020-02-18] MEDS: MELATONIN 3 MG TABLET PO ×2 (00:20→21:28)
[2020-02-18] MEDS: Levothyroxine 50 MCG Tablet PO (05:55)
[2020-02-18 06:02] LABS: Absolute Lymphocyte Count 0.74 X10^3/uL (0.83-4.51); Absolute Neutrophil Count 5.4 X10^3/uL (2.0-7.7); Basophil# 0.07 X10^3/uL; Eosinophil# 0.43 X10^3/uL; Eosinophils% 5.9 % (0-5); Hematocrit 30.6 % (37-47); Hemoglobin 9.7 g/dL (12.0-15.0); Lymphocyte # 0.74 X10^3/ul (4.0); Lymphocyte % 10.2 % (19-41); Mean Corp Hgb Conc 31.7 g/dL (32-36); Mean Corpuscular Hgb 29.4 pg (27.0-32.0); Mean Corpuscular Volume 92.7 fL (81-99); Mean Platelet Vol. 11.2 fl (6.2-12.0); Monocyte# 0.58 X10^3/uL; NRBC Flagged by Analyzer 0 % (0-5); Neutrophil # 5.43 X10^3/uL (2.7-7.7); Neutrophil % 74.5 % (47-70); Platelet Count 199 K/mm3 (150-450); RBC Distribution Width CV 15.8 % (11.6-14.6); RBC Distribution Width SD 53.4 fl (35.1-43.9); White Blood Count 7.3 K/mm3 (4.4-11.0)
[2020-02-18 06:27] LABS: Anion Gap 9 (5-15); BUN 19 mg/dL (7-18); BUN/Creat Ratio 15.1 RATIO (10-20); Calcium,Total 8.1 mg/dL (8.5-10.1); Chloride 104 mmol/L (98-107); Creatinine, Serum 1.26 mg/dL (0.55-1.02); EST Glomerular Filtration Rate 43 mL/min (>60); Est Glom Filt Rate - Afr Amer 52 mL/min (>60); Estimated Creatinine Clearance 27.23 ml/min; Glucose 100 mg/dL (74-106); Potassium 3.3 mmol/L (3.5-5.1); Sodium Level 140 mmol/L (136-145)
[2020-02-18] MEDS: Aspirin E.C. 81 MG Tablet PO (08:08)
[2020-02-18] MEDS: Furosemide 40 MG/4 ML Vial IV (09:35)
[2020-02-18] MEDS: Carvedilol 3.125 MG TABLET PO ×2 (09:36→21:28)
[2020-02-18] MEDS: Amiodarone 200 MG Tablet PO (09:36)
[2020-02-18] MEDS: Memantine Hydrochloride 10 MG Tablet PO ×2 (09:36→21:30)
[2020-02-18] MEDS: 0.9% Saline Lock 10 ML Syringe IV ×2 (09:36→17:13)
[2020-02-18] MEDS: APIXABAN 2.5 MG TABLET PO ×2 (09:36→21:29)
[2020-02-18] MEDS: cycloBENZAPRine HCl 5 MG TABLET PO ×2 (09:36→21:29)
[2020-02-18] MEDS: Docusate Sodium 100 MG Capsule 200 MG PO (09:37)
--- NOTE | 2020-02-18 10:15 | CASEMGMT ---
RN DIANE Face to Face with patient for initial transition planning/care coordination assessment. RN CM introduced self and role at [facility]. Patient lying in bed, alert and oriented. Patient willing to participate in assessment and is able to answer all questions appropriately. Care providers, pharmacy, and demographics verified. Patient wishes to discharge home, denies need for home health at this time. Patient states she has no further needs or concerns at this time. CM to follow for discharge planning needs that may arise. PCP: Vladislav Specialists: Brian, pulmonology; Francisco Javier, pain; Juan Miguel, liquor bridge operator Preferred Pharmacy: [facility] Retail Insurance: [employer] Prescription Benefit: yes Living Will/HPOA: yes, Dragan Ramirez LNOK: Living Arrangements: Patient lives with , who assists with care, in 2 story home with bed and bath on first level. Patient states she is independent for ADLs but is nearby. Transportation: DME/HHC: Patient has cane, walker, wheelchair, grab bars and cpap at home. Patient currently on oxygen and if would need at discharge prefers [facility]. Patient has previously been to TCU Disposition Plan: Patient to discharge home with family support and follow-up plans in place. Dawn MCKINNEY, RN, CM
--- NOTE | 2020-02-18 10:26 | NURSING ---
This RN called and updated the pt's , Avtar via phone. He denies further questions following update.
--- NOTE | 2020-02-18 15:39 | PCM.PROGNOTE ---
Subjective: Patient was seen and examined today, she is presently on low-flow nasal cannula oxygen and appears comfortable, she does not complain of any shortness of breath, chills, or fever. Patient's potassium today was 3.3, creatinine was 1.26. I readjusted the patient's oral potassium today. - Physical Exam Vitals/I&O's: Vital Signs Temp Pulse Resp BP Pulse Ox 97.8 F 58 L 18 97/54 L 95 02/18/20 15:01 02/18/20 15:01 02/18/20 15:01 02/18/20 15:01 02/18/20 15:01 Oxygen Flow Rate (L/min) 2 Oxygen Delivery Method Nasal Cannula Weight: 57.606 kg Body Mass Index (BMI) 23.2 Intake and Output for Last 24 Hours 02/16/20 02/17/20 02/18/20 23:59 23:59 23:59 Intake Total 240 / 240 220 / 220 Output Total 1850 / 1850 500 / 500 Balance -1610 / -1610 -280 / -280 General: Alert, Oriented x3, Cooperative, No apparent distress, Well developed HEENT: Atraumatic, PERRLA, EOMI, Normocephalic Oral: Moist Mucosa Neck: Supple, No JVD, Trachea Midline, Thyroid Normal Size and Texture Lungs: Clear to auscultation, No rhonchi, No wheeze, Diminished - Diminished breath sounds bilaterally Cardiovascular: Regular rate, Regular Rhythm, Normal S1, Normal S2, No murmurs, PMI Normal, No rub noted Abdomen: Bowel Sounds Present, Soft, Non Tender Extremities: No clubbing, No cyanosis, No edema, Capillary Refill Less than 3 Seconds Skin: No rashes, No breakdown Musculoskeletal: No Tenderness to Palpation of Joints or Extremities Neurological: Cranial nerves II-XII grossly intact, Neuro grossly intact, Sensory exam intact to light touch and pain, Coordination normal Psych/Mental Status: Normal Affect, Appropriate, Alert and oriented to time, place, person, mood and affect Laboratory Results 02/17/20 11:55: PT 16.7 H, INR 1.4 02/18/20 05:18: WBC 7.3, RBC 3.30 L, Hgb 9.7 L, Hct 30.6 L, MCV 92.7, MCH 29.4, MCHC 31.7 L, RDW Std Deviation 53.4 H, RDW Coeff of Silvano 15.8 H, Plt Count 199, MPV 11.2, Immature Gran % (Auto) 0.400, Neut % (Auto) 74.5 H, Lymph % (Auto) 10.2 L, Bowman % (Auto) 8.0, Eos % (Auto) 5.9 H, Baso % (Auto) 1.0, Absolute Neuts (auto) 5.4, Absolute Lymphs (auto) 0.74 L, Nucleated RBC % 0 02/18/20 05:18: Sodium 140, Potassium 3.3 L, Chloride 104, Carbon Dioxide 27.0, Anion Gap 9, BUN 19 H, Creatinine 1.26 H, Estim Creat Clear Calc 27.23, Est GFR (MDRD) Af Amer 52 L, Est GFR (MDRD) Non-Af 43 L, BUN/Creatinine Ratio 15.1, Glucose 100, Calcium 8.1 L Current Medications Acetaminophen (Tylenol) 650 mg PO Q6H PRN PRN PRN Reason: Pain Score 1-10/Temp > 100.7 F Albuterol Sulfate (Ventolin Aerosols) 2.5 mg INHALATION Q4H PRN PRN PRN Reason: Shortness of breath, wheezing Amiodarone HCl (Cordarone) 200 mg PO DAILY [facility] Last Admin: 02/18/20 09:36 Dose: 200 mg Documented by: Apixaban (Eliquis) 2.5 mg PO BID [facility] Last Admin: 02/18/20 09:36 Dose: 2.5 mg Documented by: [facility] Last Admin: 02/18/20 08:08 Dose: 81 mg Documented by: Azelastine HCl (Astelin) 1 spray NASAL BID PRN PRN Reason: RUNNY NOSE Carvedilol (Coreg) 3.125 mg PO BID [facility] Last Admin: 02/18/20 09:36 Dose: 3.125 mg Documented by: Cyclobenzaprine HCl (Cyclobenzaprine Hcl) 5 mg PO BID [facility] Last Admin: 02/18/20 09:36 Dose: 5 mg Documented by: Docusate Sodium (Colace) 200 mg PO DAILY [facility] Last Admin: 02/18/20 09:37 Dose: 200 mg Documented by: Duloxetine HCl (Cymbalta) 20 mg PO QHS [facility] Last Admin: 02/17/20 21:23 Dose: 20 mg Documented by: Furosemide (Lasix) 40 mg IV BIDLX [facility] Last Admin: 02/18/20 09:35 Dose: 40 mg Documented by: Levothyroxine Sodium (Synthroid) 50 mcg PO DAILY@0600 [facility] Last Admin: 02/18/20 05:55 Dose: 50 mcg Documented by: Melatonin (Melatonin) 3 mg PO QHS [facility] Last Admin: 02/18/20 00:20 Dose: 3 mg Documented by: Memantine (Namenda) 10 mg PO BID [facility] Last Admin: 02/18/20 09:36 Dose: 10 mg Documented by: Ondansetron HCl (Zofran) 4 mg IV Q8H PRN PRN PRN Reason: NAUSEA/VOMITING Polyethylene Glycol (Miralax) 17 gm PO QHS [facility] Last Admin: 02/17/20 23:02 Dose: 17 gm Documented by: Potassium Chloride (K-Dur) [facility] Last Admin: 02/18/20 08:08 Dose: 20 meq Documented by: Senna/Docusate Sodium (Senokot-S, Lorin-Colace) 2 tablet PO BID PRN PRN PRN Reason: Constipation Sodium Chloride () 10 - 40 ml IV UD PRN PRN Reason: SALINE FLUSH Last Admin: 02/18/20 09:36 Dose: 10 ml Documented by: Tramadol HCl (Ultram) 50 mg PO Q6H PRN PRN PRN Reason: Pain Score 4-10 Last Admin: 02/17/20 23:02 Dose: 50 mg Documented by: Zolpidem Tartrate (Ambien (Generic)) 5 mg PO QHS PRN PRN PRN Reason: INSOMNIA Medical Necessity - Tobacco Use Smoking Status: Never smoker Assessment/Plan #1 acute on chronic systolic congestive heart failure-patient is currently on IV Lasix, I have decided to reduce the patient's IV Lasix to 20 mg twice daily #2 hypokalemia-patient's oral potassium was increased, repeat BMP tomorrow #3 nonischemic cardiomyopathy #4 paroxysmal atrial fib #5 chronic kidney disease stage III #6 dementia #7 acute hypoxic respiratory failure-again patient at this time is on low-flow nasal cannula oxygen, we will try to wean oxygen if possible Inpatient E&M: 82503 Subs Hosp L2
[2020-02-18] MEDS: Furosemide 20 MG/2 ML VIAL IV (17:13)
[2020-02-18] MEDS: Polyethylene Glycol 3350 17 GM PACKET PO (21:28)
[2020-02-18] MEDS: DULoxetine Hcl 20 MG Capsule PO (21:34)
[2020-02-19] VITALS (11 sets, daily range): BP systolic 98–122; BP diastolic 41–69; PULSE 55–78; RESP 14–18; TEMP 36.6–37.2; O2SAT 91–98
[2020-02-19] MEDS: traMADol 50 MG Tablet PO ×2 (03:27→21:59)
[2020-02-19] MEDS: Acetaminophen 325 MG Tablet 650 MG PO ×2 (03:27→21:59)
[2020-02-19] MEDS: Levothyroxine 50 MCG Tablet PO (06:19)
[2020-02-19 07:35] LABS: Anion Gap 6 (5-15); BUN 23 mg/dL (7-18); BUN/Creat Ratio 17.2 RATIO (10-20); Calcium,Total 8.5 mg/dL (8.5-10.1); Chloride 104 mmol/L (98-107); Creatinine, Serum 1.34 mg/dL (0.55-1.02); EST Glomerular Filtration Rate 40 mL/min (>60); Est Glom Filt Rate - Afr Amer 49 mL/min (>60); Glucose 120 mg/dL (74-106); Potassium 3.7 mmol/L (3.5-5.1); Sodium Level 138 mmol/L (136-145)
[2020-02-19] MEDS: Aspirin E.C. 81 MG Tablet PO (07:43)
[2020-02-19] MEDS: metOLazone 5 MG Tablet PO (08:28)
[2020-02-19] MEDS: Carvedilol 3.125 MG TABLET PO ×2 (09:44→21:59)
[2020-02-19] MEDS: Memantine Hydrochloride 10 MG Tablet PO ×2 (09:44→22:00)
[2020-02-19] MEDS: cycloBENZAPRine HCl 5 MG TABLET PO ×2 (09:44→21:59)
[2020-02-19] MEDS: Docusate Sodium 100 MG Capsule 200 MG PO (09:44)
[2020-02-19] MEDS: APIXABAN 2.5 MG TABLET PO ×2 (09:44→22:00)
[2020-02-19] MEDS: Amiodarone 200 MG Tablet PO (09:44)
--- NOTE | 2020-02-19 10:57 | PN_ITS ---
Subjective: Patient was seen and examined today, patient states she feels weak and tired today, she does not complain of any fever chills or shortness of breath however. Patient is still requiring low flow oxygen, I talked at length with her today by phone, feels that she might have an undiagnosed pulmonary embolism, I told him I felt this was unlikely being that her CTA did not show any evidence of PE. I reduced the patient's IV Lasix yesterday to 20 mg IV every 12 hours, I also gave her a dose of Zaroxolyn 5 mg today to see if I could stimulate some additional diuresis. Patient's IV Lasix was held this morning due to hypotension-patient felt lightheaded. Patient's creatinine was 1.34 today. - Physical Exam Vitals/I&O's: Vital Signs Temp Pulse Resp BP Pulse Ox 98.5 F 60 18 98/50 L 94 02/19/20 09:38 02/19/20 09:38 02/19/20 09:38 02/19/20 09:38 02/19/20 09:38 Oxygen Flow Rate (L/min) 2 Oxygen Delivery Method Nasal Cannula Weight: 57.2 kg Body Mass Index (BMI) 23.2 Intake and Output for Last 24 Hours 02/17/20 02/18/20 02/19/20 23:59 23:59 23:59 Intake Total 240 / 240 440 / 440 Output Total 1850 / 1850 700 / 700 Balance -1610 / -1610 -260 / -260 General: Alert, Oriented x3, Cooperative, No apparent distress, Well developed HEENT: Atraumatic, PERRLA, EOMI, Normocephalic Oral: Moist Mucosa Neck: Supple, No JVD, Trachea Midline, Thyroid Normal Size and Texture Lungs: Clear to auscultation, No rhonchi, No wheeze, No rales, Diminished Cardiovascular: Regular rate, Regular Rhythm, Normal S1, Normal S2, No murmurs Abdomen: Bowel Sounds Present, Soft, Non Tender, Non-Distended Extremities: No clubbing, No cyanosis, No edema, Capillary Refill Less than 3 Seconds Skin: No rashes, No breakdown Musculoskeletal: No Tenderness to Palpation of Joints or Extremities Neurological: Cranial nerves II-XII grossly intact, Neuro grossly intact, Sensory exam intact to light touch and pain, Coordination normal Psych/Mental Status: Normal Affect, Appropriate, Alert and oriented to time, place, person, mood and affect Laboratory Results 02/19/20 05:50: Sodium 138, Potassium 3.7, Chloride 104, Carbon Dioxide 28.0, Anion Gap 6, BUN 23 H, Creatinine 1.34 H, Estim Creat Clear Calc 25.60, Est GFR (MDRD) Af Amer 49 L, Est GFR (MDRD) Non-Af 40 L, BUN/Creatinine Ratio 17.2, Glucose 120 H, Calcium 8.5 Current Medications Acetaminophen (Tylenol) 650 mg PO Q6H PRN PRN PRN Reason: Pain Score 1-10/Temp > 100.7 F Last Admin: 02/19/20 03:27 Dose: 650 mg Documented by: Albuterol Sulfate (Ventolin Aerosols) 2.5 mg INHALATION Q4H PRN PRN PRN Reason: Shortness of breath, wheezing Amiodarone HCl (Cordarone) 200 mg PO DAILY [facility] Last Admin: 02/19/20 09:44 Dose: 200 mg Documented by: Apixaban (Eliquis) 2.5 mg PO BID [facility] Last Admin: 02/19/20 09:44 Dose: 2.5 mg Documented by: Aspirin (Ecotrin) 81 mg PO DAILYCM [facility] Last Admin: 02/19/20 07:43 Dose: 81 mg Documented by: Azelastine HCl (Astelin) 1 spray NASAL BID PRN PRN Reason: RUNNY NOSE Carvedilol (Coreg) 3.125 mg PO BID [facility] Last Admin: 02/19/20 09:44 Dose: 3.125 mg Documented by: Cyclobenzaprine HCl (Cyclobenzaprine Hcl) 5 mg PO BID [facility] Last Admin: 02/19/20 09:44 Dose: 5 mg Documented by: Docusate Sodium (Colace) 200 mg PO DAILY [facility] Last Admin: 02/19/20 09:44 Dose: 200 mg Documented by: Duloxetine HCl (Cymbalta) 20 mg PO QHS [facility] Last Admin: 02/18/20 21:34 Dose: 20 mg Documented by: Furosemide (Lasix) 20 mg IV BIDLX [facility] Last Admin: 02/19/20 09:46 Dose: Not Given Documented by: Levothyroxine Sodium (Synthroid) 50 mcg PO DAILY@0600 [facility] Last Admin: 02/19/20 06:19 Dose: 50 mcg Documented by: Melatonin (Melatonin) 3 mg PO QHS [facility] Last Admin: 02/18/20 21:28 Dose: 3 mg Documented by: Memantine (Namenda) 10 mg PO BID [facility] Last Admin: 02/19/20 09:44 Dose: 10 mg Documented by: Ondansetron HCl (Zofran) 4 mg IV Q8H PRN PRN PRN Reason: NAUSEA/VOMITING Polyethylene Glycol (Miralax) 17 gm PO QHS [facility] Last Admin: 02/18/20 21:28 Dose: 17 gm Documented by: Potassium Chlor[facility] (K-Dur) [facility] Last Admin: 02/19/20 07:43 Dose: 20 meq Documented by: Senna/Docusate Sodium (Senokot-S, Lorin-Colace) 2 tablet PO BID PRN PRN PRN Reason: Constipation Sodium Chloride () 10 - 40 ml IV UD PRN PRN Reason: SALINE FLUSH Last Admin: 02/18/20 17:13 Dose: 10 ml Documented by: Tramadol HCl (Ultram) 50 mg PO Q6H PRN PRN PRN Reason: Pain Score 4-10 Last Admin: 02/19/20 03:27 Dose: 50 mg Documented by: Zolpidem Tartrate (Ambien (Generic)) 5 mg PO QHS PRN PRN PRN Reason: INSOMNIA Medical Necessity - Tobacco Use Smoking Status: Never smoker Assessment/Plan #1 acute on chronic systolic congestive heart failure-patient is currently on IV Lasix 20 mg twice daily, again I gave her 1 dose of Zaroxolyn earlier this morning, I will recheck her pulse ox this afternoon to see if there is any improvement on her pulse ox on room air. #2 hypokalemia-corrected #3 nonischemic cardiomyopathy #4 paroxysmal atrial fib #5 chronic kidney disease stage III #6 dementia #7 acute hypoxic respiratory failure-again patient at this time is on low-flow nasal cannula oxygen, we will try to wean oxygen if possible later today Inpatient E&M: [id number] [facility] Hosp L2
[2020-02-19] MEDS: 0.9% Saline Lock 10 ML Syringe IV (17:07)
[2020-02-19] MEDS: Furosemide 20 MG/2 ML VIAL IV (17:07)
[2020-02-19] MEDS: Polyethylene Glycol 3350 17 GM PACKET PO (21:57)
[2020-02-19] MEDS: MELATONIN 3 MG TABLET PO (21:59)
[2020-02-19] MEDS: DULoxetine Hcl 20 MG Capsule PO (22:00)
[2020-02-20] VITALS (12 sets, daily range): BP systolic 79–131; BP diastolic 38–67; PULSE 55–78; RESP 16–18; TEMP 36.4–36.6; O2SAT 92–97
[2020-02-20] MEDS: Aspirin E.C. 81 MG Tablet PO (08:35)
[2020-02-20] MEDS: Docusate Sodium 100 MG Capsule 200 MG PO (08:35)
[2020-02-20] MEDS: Carvedilol 3.125 MG TABLET PO ×2 (08:36→22:30)
[2020-02-20] MEDS: cycloBENZAPRine HCl 5 MG TABLET PO ×2 (08:36→22:30)
[2020-02-20] MEDS: Amiodarone 200 MG Tablet PO (08:36)
[2020-02-20] MEDS: APIXABAN 2.5 MG TABLET PO ×2 (08:36→22:30)
[2020-02-20] MEDS: Memantine Hydrochloride 10 MG Tablet PO ×2 (08:36→22:30)
[2020-02-20] MEDS: 0.9% Saline Lock 10 ML Syringe IV ×2 (08:37→17:28)
[2020-02-20] MEDS: Furosemide 20 MG/2 ML VIAL IV ×2 (08:37→17:28)
--- NOTE | 2020-02-20 10:16 | NURSING ---
When attempting to ambulate patient for home oxygen qualification, patient barely got outside of room and into hallway before claiming to feel lightheaded and refused to continue. Oxygen was 95% on RA and 92% during short ambulation.
--- NOTE | 2020-02-20 11:24 | PN_ITS ---
Reason for Visit: Follow-up acute congestive heart failure Subjective: Patient 84-year-old lady with history of nonischemic cardiomyopathy admitted with acute congestive heart failure Objective: GENERAL: cooperative HEENT: Atraumatic; EYES; Anicteric, NECK; supple, normal thyroid, RESPIRATORY: Diminished to auscultation CARDIOVASCULAR: Irregular S1 S2, GI: soft, non-tender, normoactive bowel sounds, : No Renal angle tenderness; EXTREMITIES: Trace edema, no clubbing, MUSCULOSKELETAL: No Joint Tenderness; NEURO: Awake; no lateralizing signs. SKIN: No Rash PSYCH; flat affect Vitals/I&O's: Vital Signs Temp Pulse Resp BP Pulse Ox 97.6 F L 65 16 129/67 H 95 02/20/20 08:32 02/20/20 08:32 02/20/20 08:32 02/20/20 08:32 02/20/20 10:11 Oxygen Flow Rate (L/min) [ 0 AMBULATING on Room Air] Oxygen Flow Rate (L/min) [At 0 REST on Room Air] Oxygen Flow Rate (L/min) 2 Oxygen Delivery Method Room Air Weight: 56.4 kg Body Mass Index (BMI) 23.2 Intake and Output for Last 24 Hours 02/18/20 02/19/20 02/20/20 23:59 23:59 23:59 Intake Total 440 / 440 900 / 900 Output Total 700 / 700 900 / 900 Balance -260 / -260 0 / 0 Current Medications Acetaminophen (Tylenol) 650 mg PO Q6H PRN PRN PRN Reason: Pain Score 1-10/Temp > 100.7 F Last Admin: 02/19/20 21:59 Dose: 650 mg Documented by: Albuterol Sulfate (Ventolin Aerosols) 2.5 mg INHALATION Q4H PRN PRN PRN Reason: Shortness of breath, wheezing Amiodarone HCl (Cordarone) 200 mg PO DAILY [facility] Last Admin: 02/20/20 08:36 Dose: 200 mg Documented by: Apixaban (Eliquis) 2.5 mg PO BID [facility] Last Admin: 02/20/20 08:36 Dose: 2.5 mg Documented by: [facility] ([facility]) [facility] Last Admin: 02/20/20 08:35 Dose: 81 mg Documented by: Azelastine HCl (Astelin) 1 spray NASAL BID PRN PRN Reason: RUNNY NOSE Carvedilol (Coreg) 3.125 mg PO BID [facility] Last Admin: 02/20/20 08:36 Dose: 3.125 mg Documented by: Cyclobenzaprine HCl (Cyclobenzaprine Hcl) 5 mg PO BID [facility] Last Admin: 02/20/20 08:36 Dose: 5 mg Documented by: Docusate Sodium (Colace) 200 mg PO DAILY [facility] Last Admin: 02/20/20 08:35 Dose: 200 mg Documented by: Duloxetine HCl (Cymbalta) 20 mg PO QHS [facility] Last Admin: 02/19/20 22:00 Dose: 20 mg Documented by: Furosemide (Lasix) 20 mg IV BIDLX [facility] Last Admin: 02/20/20 08:37 Dose: 20 mg Documented by: Levothyroxine Sodium (Synthroid) 50 mcg PO DAILY@0600 [facility] Last Admin: 02/20/20 05:24 Dose: Not Given Documented by: Melatonin (Melatonin) 3 mg PO QHS [facility] Last Admin: 02/19/20 21:59 Dose: 3 mg Documented by: Memantine (Namenda) 10 mg PO BID [facility] Last Admin: 02/20/20 08:36 Dose: 10 mg Documented by: Ondansetron HCl (Zofran) 4 mg IV Q8H PRN PRN PRN Reason: NAUSEA/VOMITING Polyethylene Glycol (Miralax) 17 gm PO QHS [facility] Last Admin: 02/19/20 21:57 Dose: 17 gm Documented by: Potassium Chloride (K-Dur) [facility] Last Admin: 02/20/20 08:35 Dose: 20 meq Documented by: Senna/Docusate Sodium (Senokot-S, Lorin-Colace) 2 tablet PO BID PRN PRN PRN Reason: Constipation Sodium Chloride () 10 - 40 ml IV UD PRN PRN Reason: SALINE FLUSH Last Admin: 02/20/20 08:37 Dose: 10 ml Documented by: Tramadol HCl (Ultram) 50 mg PO Q6H PRN PRN PRN Reason: Pain Score 4-10 Last Admin: 02/19/20 21:59 Dose: 50 mg Documented by: Zolpidem Tartrate (Ambien (Generic)) 5 mg PO QHS PRN PRN PRN Reason: INSOMNIA STROKE Vital Signs/Narrative: Vital Signs Temp Pulse Resp BP Pulse Ox Pulse Ox Pulse Ox 02/20/20 10:11 92 95 02/20/20 08:32 97.6 F L 65 16 129/67 H 92 Medical Necessity - Tobacco Use Smoking Status: Never smoker Assessment/Plan Patient 84-year-old lady with history of nonischemic cardiomyopathy admitted with acute congestive heart failure 1. Acute on chronic systolic heart failure ?Admitted to a monitored bed managed with diuretics. Patient has known EF of 35%. 2. Physical deconditioning ?Do suspect orthostatic hypotension contributing. Requested for orthostatics every shift and consultation placed to PT/OT 3. Acute stroke respiratory failure secondary to #1 - has since resolved. Patient will however be assessed for home oxygen needs prior to discharge 4. Obstructive sleep apnea - on CPAP at 5. Hypothyroidism - patient is on levothyroxine home dose continued 6. Paroxysmal fibrillation - rate controlled on amiodarone and on systemic anticoagulation with Eliquis 7. Depression with anxiety - patient is on duloxetine 8. GERD ? On PPI 9. Chronic kidney disease stage III -Kidney function at baseline 10. History of breast cancer - Status post mastectomy, stable in remission. 11. DVT prophylaxis - on Eliquis Active Medications Acetaminophen (Tylenol) 650 mg PO Q6H PRN PRN PRN Reason: Pain Score 1-10/Temp > 100.7 F Last Admin: 02/19/20 21:59 Dose: 650 mg Documented by: Albuterol Sulfate (Ventolin Aerosols) 2.5 mg INHALATION Q4H PRN PRN PRN Reason: Shortness of breath, wheezing Amiodarone HCl (Cordarone) 200 mg PO DAILY [facility] Last Admin: 02/20/20 08:36 Dose: 200 mg Documented by: Apixaban (Eliquis) 2.5 mg PO BID [facility] Last Admin: 02/20/20 08:36 Dose: 2.5 mg Documented by: Aspirin (Ecotrin) [facility] Last Admin: 02/20/20 08:35 Dose: 81 mg Documented by: Azelastine HCl (Astelin) 1 spray NASAL BID PRN PRN Reason: RUNNY NOSE Carvedilol (Coreg) 3.125 mg PO BID [facility] Last Admin: 02/20/20 08:36 Dose: 3.125 mg Documented by: Cyclobenzaprine HCl (Cyclobenzaprine Hcl) 5 mg PO BID [facility] Last Admin: 02/20/20 08:36 Dose: 5 mg Documented by: Docusate Sodium (Colace) 200 mg PO DAILY [facility] Last Admin: 02/20/20 08:35 Dose: 200 mg Documented by: Duloxetine HCl (Cymbalta) 20 mg PO QHS [facility] Last Admin: 02/19/20 22:00 Dose: 20 mg Documented by: Furosemide (Lasix) 20 mg IV BIDLX [facility] Last Admin: 02/20/20 08:37 Dose: 20 mg Documented by: Levothyroxine Sodium (Synthroid) 50 mcg PO DAILY@0600 [facility] Last Admin: 02/20/20 05:24 Dose: Not Given Documented by: [facility] ([facility]) [facility] Last Admin: 02/19/20 21:59 Dose: 3 mg Documented by: Memantine (Namenda) 10 mg PO BID [facility] Last Admin: 02/20/20 08:36 Dose: 10 mg Documented by: Ondansetron HCl (Zofran) 4 mg IV Q8H PRN PRN PRN Reason: NAUSEA/VOMITING Polyethylene Glycol (Miralax) 17 gm PO QHS [facility] Last Admin: 02/19/20 21:57 Dose: 17 gm Documented by: Potassium Chloride (K-Dur) [facility] Last Admin: 02/20/20 08:35 Dose: 20 meq Documented by: Senna/Docusate Sodium (Senokot-S, Lorin-Colace) 2 tablet PO BID PRN PRN PRN Reason: Constipation Sodium Chloride () 10 - 40 ml IV UD PRN PRN Reason: SALINE FLUSH Last Admin: 02/20/20 08:37 Dose: 10 ml Documented by: Tramadol HCl (Ultram) 50 mg PO Q6H PRN PRN PRN Reason: Pain Score 4-10 Last Admin: 02/19/20 21:59 Dose: 50 mg Documented by: Zolpidem Tartrate (Ambien (Generic)) 5 mg PO QHS PRN PRN PRN Reason: INSOMNIA Inpatient E&M: [id number] [facility] Hosp L2
[2020-02-20] MEDS: traMADol 50 MG Tablet PO ×2 (14:17→22:31)
[2020-02-20] MEDS: DULoxetine Hcl 20 MG Capsule PO (22:30)
[2020-02-20] MEDS: Polyethylene Glycol 3350 17 GM PACKET PO (22:31)
[2020-02-20] MEDS: MELATONIN 3 MG TABLET PO (22:31)
[2020-02-20] MEDS: Menthol/Lanolin/Calamine/Znox 113 GM Tube 1 APPLIC TOPICAL (22:52)
[2020-02-21] VITALS (8 sets, daily range): BP systolic 82–121; BP diastolic 48–68; PULSE 55–67; RESP 14–18; TEMP 36.4–36.7; O2SAT 92–96
[2020-02-21] MEDS: Levothyroxine 50 MCG Tablet PO (05:39)
[2020-02-21] MEDS: Menthol/Lanolin/Calamine/Znox 113 GM Tube 1 APPLIC TOPICAL (05:39)
[2020-02-21] MEDS: 0.9% Saline Lock 10 ML Syringe IV (05:39)
--- NOTE | 2020-02-21 07:26 | PCM.PN.HOSP ---
Reason for Visit: CHF/orthostatic hypotension Subjective: Patient seen was quite orthostatic during the night. Lasix held resuscitated with IV fluids Objective: GENERAL: cooperative HEENT: Atraumatic; EYES; Anicteric, NECK; supple, normal thyroid, RESPIRATORY: Diminished to auscultation CARDIOVASCULAR: Irregular S1 S2, GI: soft, non-tender, normoactive bowel sounds, : No Renal angle tenderness; EXTREMITIES: Trace edema, no clubbing, MUSCULOSKELETAL: No Joint Tenderness; NEURO: Awake; no lateralizing signs. SKIN: No Rash PSYCH; flat affect Vitals/I&O's: Vital Signs Temp Pulse Resp BP Pulse Ox 97.6 F L 55 L 18 116/50 L 93 02/21/20 04:25 02/21/20 07:00 02/21/20 04:25 02/21/20 04:25 02/21/20 04:25 Oxygen Flow Rate (L/min) [ 0 AMBULATING on Room Air] Oxygen Flow Rate (L/min) [At 0 REST on Room Air] Oxygen Flow Rate (L/min) 2 Oxygen Delivery Method Room Air Weight: 54.9 kg Body Mass Index (BMI) 23.2 Orthostatic Vital Signs Start: 02/20/20 14:03 Freq: q24h Status: Active Protocol: Activity Type Activity Date Activity User E-Sign Co-Sign Detail Recorded Client Recorded Date Recorded By Document 02/21/20 04:25 [facility] [id number] 02/21/20 04:53 MAB 02/21/20 04:25 Orthostatic Vitals Standing -Blood Pressure (90/60-120/80) 82/48 L -Extremity Use Left Arm -Pulse Rate (60-100) 66 Sitting -Blood Pressure (90/60-120/80) 99/54 L -Extremity Use Left Arm -Pulse Rate (60-100) 63 Lying -Blood Pressure (90/60-120/80) 116/50 L -Extremity Use Left Arm -Pulse Rate (60-100) 62 Intake and Output for Last 24 Hours 02/19/20 02/20/20 02/21/20 23:59 23:59 23:59 Intake Total 900 / 900 500 / 500 50 / 50 Output Total 900 / 900 750 / 750 300 / 300 Balance 0 / 0 -250 / -250 -250 / -250 Current Medications Acetaminophen (Tylenol) 650 mg PO Q6H PRN PRN PRN Reason: Pain Score 1-10/Temp > 100.7 F Last Admin: 02/19/20 21:59 Dose: 650 mg Documented by: Albuterol Sulfate (Ventolin Aerosols) 2.5 mg INHALATION Q4H PRN PRN PRN Reason: Shortness of breath, wheezing Amiodarone HCl (Cordarone) 200 mg PO DAILY [facility] Last Admin: 02/20/20 08:36 Dose: 200 mg Documented by: Apixaban (Eliquis) 2.5 mg PO BID [facility] Last Admin: 02/20/20 22:30 Dose: 2.5 mg Documented by: Aspirin (Ecotrin) 81 mg PO DAILYCM [facility] Last Admin: 02/20/20 08:35 Dose: 81 mg Documented by: Azelastine HCl (Astelin) 1 spray NASAL BID PRN PRN Reason: RUNNY NOSE Calamine/Phenol (Calmoseptine Ointment) 1 applic TOPICAL TID [facility]; Protocol Last Admin: 02/21/20 05:39 Dose: 1 applicatio Documented by: Carvedilol (Coreg) 3.125 mg PO BID [facility] Last Admin: 02/20/20 22:30 Dose: 3.125 mg Documented by: Cyclobenzaprine HCl (Cyclobenzaprine Hcl) 5 mg PO BID [facility] Last Admin: 02/20/20 22:30 Dose: 5 mg Documented by: Docusate Sodium (Colace) 200 mg PO DAILY [facility] Last Admin: 02/20/20 08:35 Dose: 200 mg Documented by: Duloxetine HCl (Cymbalta) 20 mg PO QHS [facility] Last Admin: 02/20/20 22:30 Dose: 20 mg Documented by: Furosemide (Lasix) 20 mg IV BIDLX [facility] Last Admin: 02/20/20 17:28 Dose: 20 mg Documented by: Potassium Chloride/Sodium Chloride () 1,000 mls @ 100 mls/hr IV .Q10H [facility] Last Admin: 02/21/20 05:40 Dose: 100 mls/hr Documented by: Levothyroxine Sodium (Synthroid) 50 mcg PO DAILY@0600 [facility] Last Admin: 02/21/20 05:39 Dose: 50 mcg Documented by: Melatonin (Melatonin) 3 mg PO QHS [facility] Last Admin: 02/20/20 22:31 Dose: 3 mg Documented by: Memantine (Namenda) 10 mg PO BID [facility] Last Admin: 02/20/20 22:30 Dose: 10 mg Documented by: Ondansetron HCl (Zofran) 4 mg IV Q8H PRN PRN PRN Reason: NAUSEA/VOMITING Polyethylene Glycol (Miralax) 17 gm PO QHS [facility] Last Admin: 02/20/20 22:31 Dose: 17 gm Documented by: [facility] ([facility]) [facility] Last Admin: 02/20/20 17:27 Dose: 20 meq Documented by: Senna/Docusate Sodium (Senokot-S, Lorin-Colace) 2 tablet PO BID PRN PRN PRN Reason: Constipation Sodium Chloride () 10 - 40 ml IV UD PRN PRN Reason: SALINE FLUSH Last Admin: 02/21/20 05:39 Dose: 10 ml Documented by: Tramadol HCl (Ultram) 50 mg PO Q6H PRN PRN PRN Reason: Pain Score 4-10 Last Admin: 02/20/20 22:31 Dose: 50 mg Documented by: Zolpidem Tartrate (Ambien (Generic)) 5 mg PO QHS PRN PRN PRN Reason: INSOMNIA STROKE Vital Signs/Narrative: Vital Signs Temp Pulse Pulse Pulse Pulse Resp BP 02/21/20 07:00 55 L 02/21/20 04:25 97.6 F L 62 62 63 66 18 116/50 L BP BP BP Pulse Ox 02/21/20 07:00 02/21/20 04:25 116/50 L 99/54 L 82/48 L 93 Medical Necessity - Tobacco Use Smoking Status: Never smoker Assessment/Plan Patient 84-year-old lady with history of nonischemic cardiomyopathy admitted with acute congestive heart failure 1. Acute on chronic systolic heart failure ?Admitted to a monitored bed managed with diuretics. Patient has known EF of 35%. ? 02/21/2020 patient currently compensated patient became orthostatic resulting in her Lasix being held 2. Physical deconditioning ?Do suspect orthostatic hypotension contributing. Requested for orthostatics every shift and consultation placed to PT/OT 3. Acute stroke respiratory failure secondary to #1 - has since resolved. Patient will however be assessed for home oxygen needs prior to discharge 4. Obstructive sleep apnea - on CPAP at HS 5. Hypothyroidism - patient is on levothyroxine home dose continued 6. Paroxysmal fibrillation - rate controlled on amiodarone and on systemic anticoagulation with Eliquis 7. Depression with anxiety - patient is on duloxetine 8. GERD ? On PPI 9. Chronic kidney disease stage III -Kidney function at baseline 10. History of breast cancer - Status post mastectomy, stable in remission. 11. DVT prophylaxis - on Eliquis 12. Orthostatic hypotension ?Patient Lasix was held resuscitated with IV fluids
[2020-02-21 08:22] LABS: Hematocrit 34.1 % (37-47); Hemoglobin 10.8 g/dL (12.0-15.0); Mean Corp Hgb Conc 31.7 g/dL (32-36); Mean Corpuscular Hgb 29.8 pg (27.0-32.0); Mean Corpuscular Volume 93.9 fL (81-99); Mean Platelet Vol. 10.6 fl (6.2-12.0); Platelet Count 285 K/mm3 (150-450); RBC Distribution Width CV 15.4 % (11.6-14.6); RBC Distribution Width SD 52.8 fl (35.1-43.9); Red Blood Count 3.63 M/mm3 (4.2-5.4); White Blood Count 5.9 K/mm3 (4.4-11.0)
[2020-02-21 08:42] LABS: Anion Gap 7 (5-15); BUN 32 mg/dL (7-18); BUN/Creat Ratio 22.1 RATIO (10-20); Calcium,Total 8.9 mg/dL (8.5-10.1); Chloride 106 mmol/L (98-107); Creatinine, Serum 1.45 mg/dL (0.55-1.02); EST Glomerular Filtration Rate 37 mL/min (>60); Est Glom Filt Rate - Afr Amer 44 mL/min (>60); Estimated Creatinine Clearance 23.66 ml/min; Glucose 99 mg/dL (74-106); Magnesium 2.2 mg/dL (1.6-2.6); Potassium 3.6 mmol/L (3.5-5.1); Sodium Level 140 mmol/L (136-145)
[2020-02-21] MEDS: Aspirin E.C. 81 MG Tablet PO (10:04)
[2020-02-21] MEDS: cycloBENZAPRine HCl 5 MG TABLET PO (10:05)
[2020-02-21] MEDS: Carvedilol 3.125 MG TABLET PO (10:05)
[2020-02-21] MEDS: Docusate Sodium 100 MG Capsule 200 MG PO (10:05)
[2020-02-21] MEDS: Amiodarone 200 MG Tablet PO (10:05)
[2020-02-21] MEDS: Memantine Hydrochloride 10 MG Tablet PO (10:06)
[2020-02-21] MEDS: APIXABAN 2.5 MG TABLET PO (10:06)
--- NOTE | 2020-02-21 12:30 | DCINST_ITS ---
- Discharge Diagnoses Current Active Problems: Current Active and Chronic Problems (Last Updated 02/17/20 @ 15:[address] Jose Radford MD) CHF (congestive heart failure) (Chronic) You will use the following diet at home:: Cardiac Your food should be the consistency of: Regular Discharge Activity: Return to Normal Activity Allergies/Adverse Reactions: Allergies Penicillins [PCN] Allergy (Verified 02/17/20 11:55) Rash Medications to take at Discharge cyclobenzaprine 5 mg tablet 5 mg PO BID tab 05/30/19 Calcium Citrate/Vitamin D3 [Calcium Cit 315-Vit D3 200 Tab] 1 tab PO TIDCM 08/19/19 Cholecalciferol (Vitamin D3) [D3-2000] 2,000 unit PO DAILY 08/19/19 Levothyroxine Sodium [Levoxyl] 50 mcg PO QHS 08/19/19 Memantine Hydrochloride [Namenda] 10 mg PO BID 08/19/19 amiodarone 200 mg tablet 200 mg PO DAILY #90 tab 09/26/19 aspirin 81 mg tablet,delayed release 81 mg PO DAILY 09/26/19 docusate sodium 100 mg capsule 200 mg PO DAILY cap 09/26/19 carvedilol 3.125 mg tablet 3.125 mg PO BID #180 tab 12/13/19 polyethylene glycol 3350 17 gram/dose oral powder 17 g PO QHS 12/13/19 potassium chloride 10 mEq tablet,extended release 10 meq PO MOWEFR tab 12/13/19 Apixaban [Eliquis] 2.5 mg PO BID 02/17/20 Cyanocobalamin [Vitamin B12] 1,000 mcg PO DAILY@0800 02/17/20 Duloxetine Hcl [Cymbalta] 20 mg PO QHS 02/17/20 Dymista 1 puff NASAL BID PRN PRN 02/17/20 Psyllium [Metamucil] 10 ml PO DAILY 02/17/20 traMADol [Ultram] 100 mg PO Q6H PRN PRN 02/17/20 Furosemide [Lasix] 40 mg PO MOWEFR #0 02/21/20 Primary Care Physician: Ben Loomis MD [Primary Care Provider] - Test Results: Test results from this visit will be discussed in further detail at your follow- up appointment, if applicable. Please Follow Up With: Ben Loomis MD Proposed Discharge Date: 02/21/20
--- NOTE | 2020-02-21 12:45 | DS.PCM_ITS ---
Discharge Date and Diagnosis Date of Admission: 02/17/20 Date of Discharge: 02/21/20 - Primary Discharge Diagnosis Acute on chronic systolic heart failure - Secondary Discharge Diagnosis Chronic Problems (Last Updated 02/17/20 @ 15:[address] Jose Radford MD) assisted (current) use of anticoagulants (Chronic) CHF (congestive heart failure) (Chronic) Debility (Chronic) Non-ischemic cardiomyopathy (Chronic) Paroxysmal atrial fibrillation (Chronic) Left bundle branch block (LBBB) (Chronic) Essential (primary) hypertension (Chronic) CVA (cerebral vascular accident) (Chronic) Expressive aphasia History of breast cancer (Chronic) Hospital Course and Treatment Operations: None Summary of Care Provided: Patient 84-year-old lady with history of nonischemic cardiomyopathy admitted with acute congestive heart failure 1. Acute on chronic systolic heart failure ?Admitted to a monitored bed managed with diuretics. Patient has known EF of 35%. ? 02/21/2020 patient currently compensated patient became orthostatic resulting in her Lasix being held patient was discharged him on Lasix 40 mg p.o. 3 times a week 2. Physical deconditioning ?Do suspect orthostatic hypotension contributing. Requested for orthostatics every shift and consultation placed to PT/OT 3. Acute stroke respiratory failure secondary to #1 - has since resolved. Patient will however be assessed for home oxygen needs prior to discharge 4. Obstructive sleep apnea - on CPAP at HS 5. Hypothyroidism - patient is on levothyroxine home dose continued 6. Paroxysmal fibrillation - rate controlled on amiodarone and on systemic anticoagulation with Eliquis 7. Depression with anxiety - patient is on duloxetine 8. GERD ? On PPI 9. Chronic kidney disease stage III -Kidney function at baseline 10. History of breast cancer - Status post mastectomy, stable in remission. 11. DVT prophylaxis - on Eliquis 12. Orthostatic hypotension ?Patient Lasix was held resuscitated with IV fluids - Physical Exam Vitals/I&O's: Vital Signs Temp Pulse Resp BP Pulse Ox 98.0 F 65 14 114/68 95 02/21/20 09:50 02/21/20 11:00 02/21/20 09:50 02/21/20 09:50 02/21/20 09:50 Oxygen Flow Rate (L/min) [ 0 AMBULATING on Room Air] Oxygen Flow Rate (L/min) [At 0 REST on Room Air] Oxygen Flow Rate (L/min) 2 Oxygen Delivery Method Room Air Weight: 54.9 kg Body Mass Index (BMI) 23.2 Orthostatic Vital Signs Start: 02/20/20 14:03 Freq: q24h Status: Active Protocol: Activity Type Activity Date Activity User E-Sign Co-Sign Detail Recorded Client Recorded Date Recorded By Document 02/21/20 09:46 MLB [id number] 02/21/20 09:47 MLB 02/21/20 09:46 Orthostatic Vitals Standing -Blood Pressure (90/60-120/80 mm Hg) 94/54 L -Extremity Use Left Arm -Pulse Rate (60-100 beats/min) 55 L Sitting -Blood Pressure (90/60-120/80 mm Hg) 114/68 -Extremity Use Left Arm -Pulse Rate (60-100 beats/min) 63 Lying -Blood Pressure (90/60-120/80 mm Hg) 116/65 -Extremity Use Left Arm -Pulse Rate (60-100 beats/min) 56 L Intake and Output for Last 24 Hours 02/19/20 02/20/20 02/21/20 23:59 23:59 23:59 Intake Total 900 / 900 500 / 500 468.33 / 468.33 Output Total 900 / 900 750 / 750 300 / 300 Balance 0 / 0 -250 / -250 168.33 / 168.33 General: Alert HEENT: Atraumatic Psych/Mental Status: Normal Affect Laboratory Results 02/21/20 08:12: WBC 5.9, RBC 3.63 L, Hgb 10.8 L, Hct 34.1 L, MCV 93.9, MCH 29.8, MCHC 31.7 L, RDW Std Deviation 52.8 H, RDW Coeff of Silvano 15.4 H, Plt Count 285, MPV 10.6 02/21/20 08:12: Sodium 140, Potassium 3.6, Chloride 106, Carbon Dioxide 27.0, Anion Gap 7, BUN 32 H, Creatinine 1.45 H, Estim Creat Clear Calc 23.66, Est GFR (MDRD) Af Amer 44 L, Est GFR (MDRD) Non-Af 37 L, BUN/Creatinine Ratio 22.1 H, Glucose 99, Calcium 8.9, Magnesium 2.2 Current Medications Acetaminophen (Tylenol) 650 mg PO Q6H PRN PRN PRN Reason: Pain Score 1-10/Temp > 100.7 F Last Admin: 02/19/20 21:59 Dose: 650 mg Documented by: Albuterol Sulfate (Ventolin Aerosols) 2.5 mg INHALATION Q4H PRN PRN PRN Reason: Shortness of breath, wheezing Amiodarone HCl (Cordarone) 200 mg PO DAILY [facility] Last Admin: 02/21/20 10:05 Dose: 200 mg Documented by: Apixaban (Eliquis) 2.5 mg PO BID [facility] Last Admin: 02/21/20 10:06 Dose: 2.5 mg Documented by: Aspirin (Ecotrin) 81 mg PO DAILYCM [facility] Last Admin: 02/21/20 10:04 Dose: 81 mg Documented by: Azelastine HCl (Astelin) 1 spray NASAL BID PRN PRN Reason: RUNNY NOSE Calamine/Phenol (Calmoseptine Ointment) 1 applic TOPICAL TID [facility]; Protocol Last Admin: 02/21/20 05:39 Dose: 1 applicatio Documented by: Carvedilol (Coreg) 3.125 mg PO BID [facility] Last Admin: 02/21/20 10:05 Dose: 3.125 mg Documented by: Cyclobenzaprine HCl (Cyclobenzaprine Hcl) 5 mg PO BID [facility] Last Admin: 02/21/20 10:05 Dose: 5 mg Documented by: Docusate Sodium (Colace) 200 mg PO DAILY [facility] Last Admin: 02/21/20 10:05 Dose: 200 mg Documented by: Duloxetine HCl (Cymbalta) 20 mg PO QHS [facility] Last Admin: 02/20/20 22:30 Dose: 20 mg Documented by: Furosemide (Lasix) 20 mg IV BIDLX [facility] Last Admin: 02/21/20 10:03 Dose: Not Given Documented by: Potassium Chloride/Sodium Chloride () 1,000 mls @ 75 mls/hr IV .[id number] [facility] Last Infusion: 02/21/20 09:51 Dose: 75 mls/hr Documented by: Levothyroxine Sodium (Synthroid) 50 mcg PO DAILY@0600 [facility] Last Admin: 02/21/20 05:39 Dose: 50 mcg Documented by: Melatonin (Melatonin) 3 mg PO QHS [facility] Last Admin: 02/20/20 22:31 Dose: 3 mg Documented by: Memantine (Namenda) 10 mg PO BID [facility] Last Admin: 02/21/20 10:06 Dose: 10 mg Documented by: Ondansetron HCl (Zofran) 4 mg IV Q8H PRN PRN PRN Reason: NAUSEA/VOMITING Polyethylene Glycol (Miralax) 17 gm PO QHS [facility] Last Admin: 02/20/20 22:31 Dose: 17 gm Documented by: [facility] Last Admin: 02/21/20 10:05 Dose: 20 meq Documented by: Senna/Docusate Sodium (Senokot-S, Lorin-Colace) 2 tablet PO BID PRN PRN PRN Reason: Constipation Sodium Chloride () 10 - 40 ml IV UD PRN PRN Reason: SALINE FLUSH Last Admin: 02/21/20 05:39 Dose: 10 ml Documented by: Tramadol HCl (Ultram) 50 mg PO Q6H PRN PRN PRN Reason: Pain Score 4-10 Last Admin: 02/20/20 22:31 Dose: 50 mg Documented by: Zolpidem Tartrate (Ambien (Generic)) 5 mg PO QHS PRN PRN PRN Reason: INSOMNIA Discharge Diet: Low fat/ Low Cholesterol, 8 Cup Fluid Restriciton Discharge Activity: Return to Normal Activity Home Medications: Medications to take at Discharge cyclobenzaprine 5 mg tablet 5 mg PO BID tab 05/30/19 Calcium Citrate/Vitamin D3 [Calcium Cit 315-Vit D3 200 Tab] 1 tab PO TIDCM 08/19/19 Cholecalciferol (Vitamin D3) [D3-2000] 2,000 unit PO DAILY 08/19/19 Levothyroxine Sodium [Levoxyl] 50 mcg PO QHS 08/19/19 Memantine Hydrochloride [Namenda] 10 mg PO BID 08/19/19 amiodarone 200 mg tablet 200 mg PO DAILY #90 tab 09/26/19 aspirin 81 mg tablet,delayed release 81 mg PO DAILY 09/26/19 docusate sodium 100 mg capsule 200 mg PO DAILY cap 09/26/19 carvedilol 3.125 mg tablet 3.125 mg PO BID #180 tab 12/13/19 polyethylene glycol 3350 17 gram/dose oral powder 17 g PO QHS 12/13/19 potassium chloride 10 mEq tablet,extended release 10 meq PO MOWEFR tab 12/13/19 Apixaban [Eliquis] 2.5 mg PO BID 02/17/20 Cyanocobalamin [Vitamin B12] 1,000 mcg PO DAILY@0800 02/17/20 Duloxetine Hcl [Cymbalta] 20 mg PO QHS 02/17/20 Dymista 1 puff NASAL BID PRN PRN 02/17/20 Psyllium [Metamucil] 10 ml PO DAILY 02/17/20 traMADol [Ultram] 100 mg PO Q6H PRN PRN 02/17/20 Furosemide [Lasix] 40 mg PO MOWEFR #0 02/21/20 Primary Care Physician: Ben Loomis MD [Primary Care Provider] - Please Follow Up With: Ben Loomis MD Disposition: Home Minutes spent on discharge:: 35 Patient Condition:: Stable Medical Necessity - Tobacco Use Smoking Status: Never smoker Meaningful Use Info Meaningful Use Diagnoses (Choose all that apply): CHF - CHF TENA/ARB ordered at discharge?: No Reason TENA/ARB not ordered?: Worsening renal function Documented LVEF (%): 35 Inpatient E&M: [id number] Disch Hosp
--- NOTE | 2020-02-21 12:51 | CASEMGMT ---
Therapy is recommending addl therapy at this time and pt states she is interested but her needs to make the decision. Call to pt's at this time and he states he does not want [facility] for pt at this time d/t the COVID virus and he would like pt to be discharged [facility]. THis LIZANDRO CONTRERAS did advise that pt is still eating her lunch at this time and he states 'she's a pokey eater.' would like to be notified as soon as pt ready for discharge. Faith BONE updated on all, voices understanding. Minesh BONE CM
--- NOTE | 2020-02-22 15:41 | CASEMGMT ---
RN CM Discharge Follow-up Phone Call: ROBIN: 14 Strata: 4 Call Date: 02/22/20 Discharge Date: 02/21/20 Time of Call: 1540 Duration: 3 min Admitting Diagnosis: Acute on chronic systolic CHF, Acute hypoxic RN CM completed follow-up phone call after recent hospitalization. Drgaan answered, states patient is doing well. Patient has follow-up appt via phone with PCP. states he did not have any questions regarding discharge instructions.
== END 2020-02-21 15:35 | disposition home or self-care (01) | DRG 291 ==
LOC: ED 14:52 → PCU 15:13
PROVIDERS: Internal Medicine; Admitting Provider Hospitalist; Emergency Provider Emergency Medicine; PCP Internal Medicine; Visit Provider Internal Medicine
DX: I13.0 Hypertensive heart and chronic kidney disease with heart failure and stage 1 through stage 4 chronic kidney disease, or unspecified chronic kidney disease (principal); J96.01 Acute respiratory failure with hypoxia; I50.23 Acute on chronic systolic (congestive) heart failure; M80.08XA Age-related osteoporosis with current pathological fracture, vertebra(e), initial encounter for fracture; N18.3 Chronic kidney disease, stage 3 (moderate); I69.320 Aphasia following cerebral infarction; I42.8 Other cardiomyopathies; I48.0 Paroxysmal atrial fibrillation; I44.7 Left bundle-branch block, unspecified; I95.1 Orthostatic hypotension; G47.33 Obstructive sleep apnea (adult) (pediatric); E03.9 Hypothyroidism, unspecified; E87.6 Hypokalemia; F03.90 Unspecified dementia, unspecified severity, without behavioral disturbance, psychotic disturbance, mood disturbance, and anxiety; F32.9 Major depressive disorder, single episode, unspecified; F41.9 Anxiety disorder, unspecified; K21.9 Gastro-esophageal reflux disease without esophagitis; Z79.82 Long term (current) use of aspirin; Z85.3 Personal history of malignant neoplasm of breast; Z79.01 Long term (current) use of anticoagulants; Z79.890 Hormone replacement therapy; Z79.899 Other long term (current) drug therapy
CPT/HCPCS: 36415; 71045; 71275; 80048; 83605; 83735; 83880; 84484; 85025; 85027; 85379; 85610; 93005; 96374; 97110; 97116; 97162; 97165; 97530; 97535; 99251; 99285; Q9967; A4216; G0463; J1940

== ENCOUNTER 2020-03-06 00:35 | Emergency (ER) | payer MEDICARE, OTHER, SELFPAY ==
[2020-02-17 16:36] VITALS: BMI 23.2
[2020-03-06 00:36] VITALS: BP 94/67; PULSE 62; RESP 18; TEMP 36.7; O2SAT 98
[2020-03-06 00:42] VITALS: BP 94/67; PULSE 62; RESP 18; TEMP 36.7; O2SAT 98; BMI 23.3
--- NOTE | 2020-03-06 00:52 | ED.DCSUM_ITS ---
History of Present Illness Chief Complaint: Abd Pain Detail of Chief Complaint: Lower abdominal pain and unable to urinate Informant: Patient Onset: Yesterday Timing: Waxes and wanes Current Severity: Moderate Maximum Severity: Moderate Narrative: Patient presents with lower abdominal pain and unable to urinate. She states she is been able to only pass small dribbles of urine since yesterday. She was admitted approximately a month ago for a left-sided kidney stone. She states that she had a stent in place that came loose and caused damage. Stent is currently out. She states she been able to urinate pretty well until yesterday. Patient was admitted to the hospital approximately 2 weeks ago for CHF. She is currently on Lasix 3 times a week to help with her fluid status. - Past Medical History (1) Kidney stone Status: Resolved (2) CHF (congestive heart failure) Status: Chronic (3) CVA (cerebral vascular accident) Status: Chronic Comment: Expressive aphasia (4) Essential (primary) hypertension Status: Chronic (5) History of breast cancer Status: Chronic (6) group home (current) use of anticoagulants Status: Chronic (7) Non-ischemic cardiomyopathy Status: Chronic (8) Paroxysmal atrial fibrillation Status: Chronic Past Medical History - Allergies and Home Meds Allergies/Adverse Reactions: Allergies Penicillins [PCN] Allergy (Verified 02/17/20 11:55) Rash Primary Care Physician: Ben oLomis MD [Primary Care Provider] - Doctors: Dr. Cueva Prior records reviewed: Yes Surgical History: appendectomy, cataract, mastectomy - Right., - - Lumpectomy, tubal ligation, right breast mass biopsy. Smoking Status: Never smoker - Family History Maternal Family History: Family History (Last Reviewed 02/17/20 @ 15:[address] Jose Radford MD) Grandmother Diabetes Family History: Reports: No pertinent history Paternal Family History: Family History (Last Reviewed 02/17/20 @ 15:[address] Jose Radford MD) Grandmother Diabetes Family History: Reports: No pertinent history Review of Systems General: Denies: Chills, Fever Cardiovascular: Denies: Chest pain Respiratory: Denies: Dyspnea, Cough Gastrointestinal: Reports: Abdominal pain. Denies: Nausea, Vomiting, Diarrhea Genitourinary: Reports: - - Unable to urinate Musculoskeletal: Denies: Myalgias, Extremity Pain Skin: Denies: Rash Neurological: Denies: Headache Hematologic: Denies: Easy bruising, Easy bleeding Allergy: Denies: Uticaria Physical Exam Vital Signs/Narrative: Vital Signs Temp Pulse Resp BP Pulse Ox 03/06/20 00:42 98.0 F 62 18 94/67 98 03/06/20 00:36 98.0 F 62 18 94/67 98 Inital Vital Signs reviewed: Yes General: Well nourished, Well developed Head: Normocephalic ENT: Moist mucous membranes Neck: Supple Cardiovascular: Regular rate, Regular rhythm Respiratory: No distress, CTA bilaterally Abdomen: Soft, Tender - Suprapubic tenderness to palpation., Hypoactive bowel sounds. Negative for: Guarding, Rebound tenderness Extremities: Nontender Skin: Normal color Neurological: Alert, Oriented x3 Psychological: Normal affect Diagnostic/Tx/Re-eval Impressions Abdomen/Pelvis CT 03/06/20 01:42 IMPRESSION: Bilateral stable nonobstructing renal calculi with mild renal involution. Resolution of previous pleural effusion, continued increased hazy airspace disease possible inflammatory changes. Stable arteriosclerosis, cardiac enlargement, pancreas involution, nonvisualized appendix, fecal stasis, uterine involution osteoporosis and degenerative changes. Electronically Signed: Ynes Carpio MD at 3:04 EDT , Service support , 03/06/20 01:42 Abdomen/Pelvis without Cont [CT] Stat Laboratory Results 03/06/20 03/06/20 03/06/20 01:29 02:08 02:08 WBC 5.7 RBC 3.83 L Hgb 11.6 L Hct 36.9 L MCV 96.3 MCH 30.3 MCHC 31.4 L RDW Std Deviation 52.9 H RDW Coeff of Silvano 15.3 H Plt Count 259 MPV 11.4 Immature Gran % (Auto) 0.400 Neut % (Auto) 54.2 Lymph % (Auto) 28.8 Carver % (Auto) 10.2 H Eos % (Auto) 4.8 Baso % (Auto) 1.6 H Absolute Neuts (auto) 3.1 Absolute Lymphs (auto) 1.63 Nucleated RBC % 0 Sodium 142 Potassium 4.0 Chloride 111 H Carbon Dioxide 26.0 Anion Gap 5 BUN 15 Creatinine 1.69 H Estim Creat Clear Calc 20.30 Est GFR (MDRD) Af Amer 37 L Est GFR (MDRD) Non-Af 31 L BUN/Creatinine Ratio 8.9 L Glucose 90 Calcium 9.9 Urine Color Yellow Urine Clarity Sl. Cloudy Urine pH 7.0 Ur Specific [place] 1.010 Urine Protein Negative Urine Glucose (UA) Normal Urine Ketones Negative Urine Occult Blood Negative Urine Nitrite Negative Urine Bilirubin Negative Urine Urobilinogen Normal Ur Leukocyte Esterase Negative Urine RBC 0 SEEN Urine WBC 0 SEEN Ur Squamous Epith Cells 0-5 SEEN Amorphous Sediment 1+ PHOS Urine Bacteria 0 SEEN Urine Mucus 0 SEEN - Medical Decision Making Gastelum catheter was initially placed but patient only had 200 cc of urine out. She was recently admitted for CHF and diuresed. Due to concern for worsening renal failure with decreased urine output blood work was obtained. Creatinine is 1.69 which is consistent with her prior range. Urine does not show sign of infection. CT flank was obtained that shows a small kidney stone in each kidney but no other acute changes. Nursing staff noted that the patient had significant pain over the perineum when they placed the catheter. She has some irritation and some mild swelling. In light of this I think the catheter should be left in place. She will be given Monistat cream to use externally. I have discussed the findings with the patient's . He feels comfortable caring for her catheter at home and patient will follow-up Dr. Cueva. ED Disposition - Plan for ED Patient: Disposition: Home or Assisted Living Diagnosis: Perineal irritation in female Instructions: ED Retention Urinary Female Referrals: Ben Loomis MD [Primary Care Provider] - Ortiz Cueva MD [STAFF PHYSICIAN] - 3-5 Days
[2020-03-06] MEDS: Lidocaine Jelly 2% 20 ML Syringe (URO-JET) 20 APPLIC TOPICAL (01:11)
[2020-03-06 01:35] LABS: Bacteria 0 SEEN /hpf (None Seen); Mucous, Urine 0 SEEN /hpf (<or=2+); Red Blood Cells-Urine 0 SEEN /hpf (0-5); White Blood Cells 0 SEEN /hpf (0-5)
[2020-03-06 01:36] LABS: Color, Urine Yellow (Yellow); Glucose, Dipstick Normal (Normal); Ketone-Dipstick Negative (Negative); Leukocyte Esterase-Dipstick Negative /ul (Negative); Nitrite-Dipstick Negative (Negative); Occult Blood-Urine Negative /ul (Negative); Protein-Dipstick Negative (Negative); Urine Bilirubin Dipstick Negative (Negative); Urine Clarity Sl. Cloudy (Clear); Urine Urobilinogen Normal (Normal)
--- NOTE | 2020-03-06 01:42 | CT_ITS ---
STUDY: CT ABDOMEN AND PELVIS WITHOUT CONTRAST REASON FOR EXAM: Female, 84 years old. UNABLE TO URINATE X 1 DAY, HX KS, BREAST CA WITH RIGHT MASTECTOMY, HTN, PT HAS SIFUENTES CATH IN PLACE RADIATION DOSAGE (If Supplied By Facility): CTDIvol = ( 6.35 ) mGy, DLP = ( 323.67 ) mGycm TECHNIQUE: Transaxial 2.5 mm images were obtained from the dome of the diaphragm to the symphysis pubis without oral contrast, and without intravenous contrast. Sagittal and coronal images were reconstructed. This examination is limited for the evaluation of gastrointestinal, solid organs and vascular structures due to the lack of intravenous and oral contrast. Individualized dose optimization techniques were used for this CT. COMPARISON: CT abdomen and pelvis 11/17/2019. 08/19/2019. CTA chest 02/17/2020. FINDINGS: Resolution of previous effusions. Hazy airspace opacification in the lung bases with interseptal thickening . There is stable cardiac enlargement. Normal liver. Distended gallbladder and normal extrahepatic biliary system. Normal spleen. There is stable diffuse atrophy of the pancreas with stable indistinct contour of the adjacent duodenum. Normal bilateral adrenal glands. Stable nonobstructing right upper renal Pole calculus of 0.5 mm and left mid renal calculus is of 0.3 cm. Mild cortical thinning, stable Normal visualized stomach. Normal small intestine. There is fecal stasis. Normal colon. There is non-visualization of the appendix. There is diffuse atherosclerotic calcification of the abdominal aorta and pelvic arteries, without a demonstrated aneurysm. Normal inferior vena cava. Normal retroperitoneum. Sifuentes catheter decompressing the urinary bladder. Pockets of air within the Sifuentes catheter balloon and nondependent urinary bladder felt to be iatrogenic. There is atrophy of the uterus. Normal abdominal wall. There are diffuse degenerative changes of the visualized spine, bilateral hip and sacroiliac joints, lower lumbar facet joints, levoscoliosis, osteoporosis. Loss of vertebral body height along the inferior endplate T11. Discogenic disease of the L2-L4 vertebral body. Multilevel neuroforaminal and spinal canals stenosis. CT/Abdomen/Pelvis without Cont IMPRESSION: Bilateral stable nonobstructing renal calculi with mild renal involution. Resolution of previous pleural effusion, continued increased hazy airspace disease possible inflammatory changes. Stable arteriosclerosis, cardiac enlargement, pancreas involution, nonvisualized appendix, fecal stasis, uterine involution osteoporosis and degenerative changes. Electronically Signed: Ynes Carpio MD at 3:04 EDT , Service support ,
[2020-03-06 01:43] LABS: Amorphous Sediment 1+ PHOS; Squamous Epithelial Cells - UA 0-5 SEEN /hpf (5-10)
[2020-03-06 02:16] LABS: Absolute Lymphocyte Count 1.63 X10^3/uL (0.83-4.51); Absolute Neutrophil Count 3.1 X10^3/uL (2.0-7.7); Basophil# 0.09 X10^3/uL; Basophil% 1.6 % (0-1); Eosinophil# 0.27 X10^3/uL; Eosinophils% 4.8 % (0-5); Hematocrit 36.9 % (37-47); Hemoglobin 11.6 g/dL (12.0-15.0); Lymphocyte # 1.63 X10^3/ul (4.0); Lymphocyte % 28.8 % (19-41); Mean Corp Hgb Conc 31.4 g/dL (32-36); Mean Corpuscular Hgb 30.3 pg (27.0-32.0); Mean Corpuscular Volume 96.3 fL (81-99); Mean Platelet Vol. 11.4 fl (6.2-12.0); Monocyte# 0.58 X10^3/uL; Monocyte% 10.2 % (0-10); NRBC Flagged by Analyzer 0 % (0-5); Neutrophil # 3.07 X10^3/uL (2.7-7.7); Neutrophil % 54.2 % (47-70); Platelet Count 259 K/mm3 (150-450); RBC Distribution Width CV 15.3 % (11.6-14.6); RBC Distribution Width SD 52.9 fl (35.1-43.9); Red Blood Count 3.83 M/mm3 (4.2-5.4); White Blood Count 5.7 K/mm3 (4.4-11.0)
[2020-03-06] MEDS: Morphine 2 MG/ML Syringe IM (02:22)
[2020-03-06 02:28] LABS: Anion Gap 5 (5-15); BUN 15 mg/dL (7-18); BUN/Creat Ratio 8.9 RATIO (10-20); Calcium,Total 9.9 mg/dL (8.5-10.1); Chloride 111 mmol/L (98-107); Creatinine, Serum 1.69 mg/dL (0.55-1.02); EST Glomerular Filtration Rate 31 mL/min (>60); Est Glom Filt Rate - Afr Amer 37 mL/min (>60); Glucose 90 mg/dL (74-106); Sodium Level 142 mmol/L (136-145)
[2020-03-06] MEDS: Miconazole Nitrate Cream 1 APPLIC TOPICAL (03:35)
[2020-03-06] MEDS: HYDROcodone Bitartrate/Apap 5/325 Tablet PO (03:35)
[2020-03-06 03:51] VITALS: BP 110/72; PULSE 61; RESP 20; O2SAT 97
== END 2020-03-06 04:03 | disposition home or self-care (01) ==
PROVIDERS: Emergency Provider Emergency Medicine; PCP Internal Medicine
DX: R10.2 Pelvic and perineal pain (principal); N20.0 Calculus of kidney; I11.0 Hypertensive heart disease with heart failure; I50.9 Heart failure, unspecified; I48.0 Paroxysmal atrial fibrillation; I42.8 Other cardiomyopathies; Z79.82 Long term (current) use of aspirin; Z79.01 Long term (current) use of anticoagulants; Z87.442 Personal history of urinary calculi; Z86.73 Personal history of transient ischemic attack (TIA), and cerebral infarction without residual deficits
CPT/HCPCS: 51702; 74176; 80048; 81001; 85025; 96374; 99283; A4216

== ENCOUNTER → 2020-04-14 11:28 | Outpatient (CLI) | payer MEDICARE, OTHER, SELFPAY ==
[2020-03-30 12:33] VITALS: BMI 22.6
[2020-04-14 12:23] LABS: Anion Gap 5 (5-15); BUN 17 mg/dL (7-18); BUN/Creat Ratio 12.8 RATIO (10-20); Calcium,Total 8.8 mg/dL (8.5-10.1); Chloride 110 mmol/L (98-107); Creatinine, Serum 1.33 mg/dL (0.55-1.02); EST Glomerular Filtration Rate 41 mL/min (>60); Est Glom Filt Rate - Afr Amer 49 mL/min (>60); Glucose 109 mg/dL (74-106); Potassium 4.1 mmol/L (3.5-5.1); Sodium Level 143 mmol/L (136-145)
== END ==
PROVIDERS: PCP Internal Medicine; Referring Provider Internal Medicine Cardiovascular Disease; Visit Provider Internal Medicine Cardiovascular Disease
DX: I50.42 Chronic combined systolic (congestive) and diastolic (congestive) heart failure (principal)
CPT/HCPCS: 36415; 80048

== ENCOUNTER → 2020-04-17 13:28 | Outpatient (CLI) | payer MEDICARE, OTHER, SELFPAY ==
[2020-03-30 12:33] VITALS: BMI 22.6
--- NOTE | 2020-04-17 13:31 | RAD_ITS ---
STUDY: X-RAY - ABDOMEN/PELVIS REASON FOR EXAM: Female, 84 years old. KIDNEY STONES TECHNIQUE: Two AP supine views of the abdomen and pelvis. COMPARISON: CT abdomen and pelvis without contrast March 06, 2020 FINDINGS: None visualized lung bases. There is a nonspecific pattern of gas and fecal material in the nondistended colon. There is no demonstrated free abdominal air. Small rounded stone in an upper pole calyx of right kidney overlaps the posterior right 12th rib. Previously noted small stone in a lateral mid to lower pole calyx of left kidney is not clearly evident here. The visualized liver and spleen are grossly normal in size and morphology. There are atherosclerotic calcifications in the segmental branches of the internal iliac arteries. There are stable multilevel degenerative changes and mild levoscoliosis of the visualized lumbar spine. RAD/Abdomen Single View IMPRESSION: 1. Stable stone at the upper pole the right kidney. A previously noted stone at the midpole of the left kidney is not clearly demonstrated here. 2. Nonspecific bowel gas pattern. 3. Atherosclerotic calcifications in the pelvic arteries. 4. Stable degenerative changes and mild levoscoliosis of the lumbar spine. Electronically Signed: Devon Teran MD at 19:25 EDT , Service support ,
== END ==
LOC: RAD.FUTURE 13:29 → RAD 17:00
PROVIDERS: PCP Internal Medicine; Referring Provider Nurse Practitioner Adult Health; Visit Provider Nurse Practitioner Adult Health
DX: N20.0 Calculus of kidney (principal)
CPT/HCPCS: 74018; 87086; 87088; 87186

== ENCOUNTER 2020-06-15 10:59 | Inpatient (IN) | payer MEDICARE, OTHER, SELFPAY ==
[2020-03-30 12:33] VITALS: BMI 22.6
[2020-06-15] VITALS (10 sets, daily range): BP systolic 100–123; BP diastolic 52–80; PULSE 71–78; RESP 18–28; TEMP 36.6–36.7; O2SAT 78–94; BMI 21.2; BMI 22.0
--- NOTE | 2020-06-15 11:17 | EKG12_ITS ---
Test Reason : GENERAL ILLNESS Blood Pressure : / mmHG Vent. Rate : 075 BPM Atrial Rate : 075 BPM P-R Int : 176 ms QRS Dur : 184 ms QT Int : 500 ms P-R-T Axes : 068 -60 087 degrees QTc Int : 558 ms Normal sinus rhythm Left axis deviation Left bundle branch block Abnormal ECG Confirmed by YULY LIN ([id number]), continuity editor CORAZON LEWIS ([id number]) on 06/18/2020 2:04:57 PM Referred By: YAZMIN/NIRALI Confirmed By:YULY LIN
--- NOTE | 2020-06-15 11:18 | ED.VIS.GEN ---
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 tells me she has a long history of dementia and typically can do most ADLs and knows the week. In the past 2 weeks she is got progressively more confused and most significantly over the past couple days. She is grown globally weak and now unable to get off the commode or do any transfers. She also has a history of A. fib and is on Eliquis amiodarone. She has a history of dilated cardiomyopathy. Last ejection fraction around 20-25%. notes that she eats very little and has lost 20 pounds over the past year. She has most recently been weighing 115 to 117 pounds. Today 120.9 lbs. today he felt as if he could no longer care for her as she cannot transfer and he cannot lift her. Therefore EMS was called. He did try to contact home health yesterday. She has had a chronic cough for more than a decade after a neurologic event in 2006. Past Medical History - Allergies and Home Meds Allergies/Adverse Reactions: Allergies Penicillins [PCN] Allergy (Verified 03/30/20 12:18) Rash Primary Care Physician: Ben Loomis MD [Primary Care Provider] - Surgical History: appendectomy, cataract, mastectomy - Right., - - Lumpectomy, tubal ligation, right breast mass biopsy. Smoking Status: Never smoker - Family History Maternal Family History: Family History (Last Reviewed 03/30/20 @ 14:[address] Gary Bullard MD) Grandmother Diabetes Family History: Reports: No pertinent history Paternal Family History: Family History (Last Reviewed 03/30/20 @ 14:[address] Gary Bullard MD) Grandmother Diabetes Family History: Reports: No pertinent history Physical Exam Vital Signs/Narrative: Vital Signs Temp Pulse Resp BP Pulse Ox 06/15/20 11:10 92 06/15/20 11:03 97.8 F 78 20 H 123/55 H 78 Diagnostic/Tx/Re-eval Clinical Impression(s) from Imaging Studies Chest X-Ray 06/15/20 11:30 IMPRESSION: Progressive infiltrates in both lungs worse in the right upper lobe. Electronically Signed: Shivam Raymond, at 12:16 EDT , Service support , Brain CT 06/15/20 12:07 IMPRESSION: Chronic involutional changes of the brain. Electronically Signed: Shivam Raymond, at 12:55 EDT , Service support , Laboratory Last Values WBC 6.8 K/mm3 (4.4-11.0) 06/15/20 11:37 RBC 3.21 M/mm3 (4.2-5.4) L 06/15/20 11:37 Hgb 9.5 g/dL (12.0-15.0) L 06/15/20 11:37 Hct 30.1 % (37-47) L 06/15/20 11:37 MCV 93.8 fL (81-99) 06/15/20 11:37 MCH 29.6 pg (27.0-32.0) 06/15/20 11:37 MCHC 31.6 g/dL (32-36) L 06/15/20 11:37 RDW Std Deviation 59.3 fl (35.1-43.9) H 06/15/20 11:37 RDW Coeff of Silvano 17.7 % (11.6-14.6) H 06/15/20 11:37 Plt Count 281 K/mm3 (150-450) 06/15/20 11:37 MPV 10.8 fl (6.2-12.0) 06/15/20 11:37 Immature Gran % (Auto) 0.300 % (0.0-0.9) 06/15/20 11:37 Neut % (Auto) 78.4 % (47-70) H 06/15/20 11:37 Lymph % (Auto) 9.2 % (19-41) L 06/15/20 11:37 [place] % (Auto) 7.7 % (0-10) 06/15/20 11:37 Eos % (Auto) 3.4 % (0-5) 06/15/20 11:37 Baso % (Auto) 1.0 % (0-1) 06/15/20 11:37 Absolute Neuts (auto) 5.4 X10^3/uL (2.0-7.7) 06/15/20 11:37 Absolute Lymphs (auto) 0.63 X10^3/uL (0.83-4.51) L 06/15/20 11:37 Nucleated RBC % 0 % (0-5) 06/15/20 11:37 PT 17.7 SECONDS (11.7-14.9) H 06/15/20 11:37 INR 1.5 06/15/20 11:37 APTT 35.3 Seconds (24.1-36.2) 06/15/20 11:37 Sodium 142 mmol/L (136-145) 06/15/20 11:37 Potassium 3.9 mmol/L (3.5-5.1) 06/15/20 11:37 Chloride 110 mmol/L (98-107) H 06/15/20 11:37 Carbon Dioxide 24.0 mmol/L (21.0-32.0) 06/15/20 11:37 Anion Gap 8 (5-15) 06/15/20 11:37 BUN 19 mg/dL (7-18) H 06/15/20 11:37 Creatinine 1.39 mg/dL (0.55-1.02) H 06/15/20 11:37 Estim Creat Clear Calc 25.81 ml/min 06/15/20 11:37 Est GFR (MDRD) Af Amer 47 mL/min (>60) L 06/15/20 11:37 Est GFR (MDRD) Non-Af 39 mL/min (>60) L 06/15/20 11:37 BUN/Creatinine Ratio 13.7 RATIO (10-20) 06/15/20 11:37 Glucose 119 mg/dL (74-106) H 06/15/20 11:37 Lactic Acid 1.8 mmol/L (0.4-1.9) 06/15/20 11:37 Calcium 8.8 mg/dL (8.5-10.1) 06/15/20 11:37 Magnesium 1.9 mg/dL (1.6-2.6) 06/15/20 11:37 Total Bilirubin 1.00 mg/dL (0.20-1.00) 06/15/20 11:37 Direct Bilirubin 0.30 mg/dL (0.00-0.30) 06/15/20 11:37 AST 28 U/L (15-37) 06/15/20 11:37 ALT 20 U/L (13-56) 06/15/20 11:37 Alkaline Phosphatase 87 U/L (45-117) 06/15/20 11:37 Troponin I < 0.015 ng/mL (<0.045) 06/15/20 11:37 B-Natriuretic Peptide 2063.3 pg/mL (0-100) H 06/15/20 11:37 Total Protein 6.6 g/dL (6.4-8.2) 06/15/20 11:37 Albumin 2.7 g/dL (3.2-5.0) L 06/15/20 11:37 Globulin 3.9 g/dL (2.2-4.2) 06/15/20 11:37 Lipase 33 U/L (73-393) L 06/15/20 11:37 Urine Color Yellow (Yellow) 06/15/20 11:55 Urine Clarity Clear (Clear) 06/15/20 11:55 Urine pH 5.0 (5.0 - 8.0) 06/15/20 11:55 Ur Specific [place] 1.025 (1.002-1.030) 06/15/20 11:55 Urine Protein 15 mg/dl (Negative) H 06/15/20 11:55 Urine Glucose (UA) Normal mg/dl (Normal) 06/15/20 11:55 Urine Ketones Negative mg/dl (Negative) 06/15/20 11:55 Urine Occult Blood Negative /ul (Negative) 06/15/20 11:55 Urine Nitrite Positive (Negative) H 06/15/20 11:55 Urine Bilirubin Negative mg/dL (Negative) 06/15/20 11:55 Urine Urobilinogen Normal mg/dl (Normal) 06/15/20 11:55 Ur Leukocyte Esterase 25 /ul (Negative) H 06/15/20 11:55 Urine RBC 0 SEEN /hpf (0-5) 06/15/20 11:55 Urine WBC 0-5 SEEN /hpf (0-5) 06/15/20 11:55 Ur Squamous Epith Cells 0 SEEN /hpf (5-10) 06/15/20 11:55 Urine Bacteria 1+ /hpf (None Seen) 06/15/20 11:55 Urine Mucus 0 SEEN /hpf (<or=2+) 06/15/20 11:55 - EKG Initial EKG Interpretation: Sinus Rhythm - EKG demonstrates a normal sinus rhythm at a rate of 75 with a known left bundle branch block, LBBB - Medical Decision Making Patient hypoxic on room air 95% on 4 L. She is up several pounds of body weight. Her beta natruretic peptide is higher than it has been in the past. Think most likely the patient has a degree of volume overload. I do not see evidence of infectious process. She received a dose of Lasix and her plan is admission. ED Disposition - Plan for ED Patient: Referrals: Ben Loomis MD [Primary Care Provider] -
--- NOTE | 2020-06-15 11:30 | RAD_ITS ---
STUDY: X-RAY CHEST REASON FOR EXAM: Female, 84 years old. Hypoxia TECHNIQUE: Single AP portable view of the chest. COMPARISON: Comparison is made with prior study dated 02/17/2020. FINDINGS: EKG electrodes are seen. Since prior study, there has been progressive infiltration in the right upper lobe as well as in the left lung. Blunting of both proximal phrenic angles. Normal size heart. Normal mediastinum and adithya. Normal visualized pulmonary arteries. There is atherosclerotic tortuosity of the aortic arch and descending thoracic aorta. There are diffuse degenerative changes of the visualized thoracic spine. Normal visualized ribs, clavicles, and shoulders. There is no demonstrated abnormality of the visualized soft tissue structures of the upper abdomen. RAD/Chest 1 View (Portable) IMPRESSION: Progressive infiltrates in both lungs worse in the right upper lobe. Electronically Signed: Shivam Raymond, at 12:16 EDT , Service support ,
[2020-06-15 11:47] LABS: Absolute Lymphocyte Count 0.63 X10^3/uL (0.83-4.51); Absolute Neutrophil Count 5.4 X10^3/uL (2.0-7.7); Basophil# 0.07 X10^3/uL; Eosinophil# 0.23 X10^3/uL; Eosinophils% 3.4 % (0-5); Hematocrit 30.1 % (37-47); Hemoglobin 9.5 g/dL (12.0-15.0); Lymphocyte # 0.63 X10^3/ul (4.0); Lymphocyte % 9.2 % (19-41); Mean Corp Hgb Conc 31.6 g/dL (32-36); Mean Corpuscular Hgb 29.6 pg (27.0-32.0); Mean Corpuscular Volume 93.8 fL (81-99); Mean Platelet Vol. 10.8 fl (6.2-12.0); Monocyte# 0.53 X10^3/uL; Monocyte% 7.7 % (0-10); NRBC Flagged by Analyzer 0 % (0-5); Neutrophil # 5.36 X10^3/uL (2.7-7.7); Neutrophil % 78.4 % (47-70); Platelet Count 281 K/mm3 (150-450); RBC Distribution Width CV 17.7 % (11.6-14.6); RBC Distribution Width SD 59.3 fl (35.1-43.9); Red Blood Count 3.21 M/mm3 (4.2-5.4); White Blood Count 6.8 K/mm3 (4.4-11.0)
[2020-06-15 11:56] LABS: International Normalized Ratio 1.5; Prothrombin Time (Protime)PT. 17.7 SECONDS (11.7-14.9)
[2020-06-15 11:57] LABS: Partial Thromboplast Time 35.3 Seconds (24.1-36.2)
[2020-06-15 11:59] LABS: Mucous, Urine 0 SEEN /hpf (<or=2+); Red Blood Cells-Urine 0 SEEN /hpf (0-5); Squamous Epithelial Cells - UA 0 SEEN /hpf (5-10)
[2020-06-15 12:05] LABS: AST(SGOT) 28 U/L (15-37); Alanine Aminotransfer ALT/SGPT 20 U/L (13-56); Albumin, Serum 2.7 g/dL (3.2-5.0); Alkaline Phosphatase 87 U/L (45-117); Anion Gap 8 (5-15); BUN 19 mg/dL (7-18); BUN/Creat Ratio 13.7 RATIO (10-20); Calcium,Total 8.8 mg/dL (8.5-10.1); Chloride 110 mmol/L (98-107); Creatinine, Serum 1.39 mg/dL (0.55-1.02); EST Glomerular Filtration Rate 39 mL/min (>60); Est Glom Filt Rate - Afr Amer 47 mL/min (>60); Estimated Creatinine Clearance 25.81 ml/min; Globulin 3.9 g/dL (2.2-4.2); Glucose 119 mg/dL (74-106); Lipase 33 U/L (73-393); Magnesium 1.9 mg/dL (1.6-2.6); Potassium 3.9 mmol/L (3.5-5.1); Protein, Total 6.6 g/dL (6.4-8.2); Sodium Level 142 mmol/L (136-145)
[2020-06-15 12:07] LABS: BNP,B-Type NATRIURETIC PEPTIDE 2063.3 pg/mL (0-100)
--- NOTE | 2020-06-15 12:07 | CT_ITS ---
STUDY: CT BRAIN WITHOUT CONTRAST REASON FOR EXAM: Female, 84 years old. GENERAL DECLINE IN ADLS PAST SEVERAL WEEKS. AMS. RADIATION DOSAGE (If Supplied By Facility): CTDIvol = ( 44.99 ) mGy, DLP = ( 745.49 ) mGycm TECHNIQUE: Transaxial CT imaging of the brain was performed without administration of intravenous contrast material. Individualized dose optimization techniques were used for this CT. COMPARISON: Comparison is made with prior study dated 11/14/2018. FINDINGS: Normal soft tissue structures. Normal calvarium. There is mild cerebral atrophy with widening of the extra-axial spaces and ventricular dilatation. There are areas of decreased attenuation within the white matter tracts of the supratentorial brain, consistent with microvascular disease changes. Normal basal ganglia and thalami. Normal brainstem. Normal cerebellum. There is no intracranial hemorrhage. There are no findings of an acute ischemic infarction. There is atherosclerotic calcification of the vertebral arteries as well as the cavernous portions of the internal carotid arteries bilaterally. Normal visualized paranasal sinuses. CT/Brain/Head without Contrast IMPRESSION: Chronic involutional changes of the brain. Electronically Signed: Shivam Raymond, at 12:55 EDT , Service support ,
[2020-06-15 12:11] LABS: Lactic Acid 1.8 mmol/L (0.4-1.9)
[2020-06-15 12:17] LABS: Color, Urine Yellow (Yellow); Glucose, Dipstick Normal (Normal); Ketone-Dipstick Negative (Negative); Leukocyte Esterase-Dipstick 25 /ul (Negative); Nitrite-Dipstick Positive (Negative); Occult Blood-Urine Negative /ul (Negative); Protein-Dipstick 15 mg/dl (Negative); Specific Gravity, Urine 1.025 (1.002-1.030); Urine Bilirubin Dipstick Negative (Negative); Urine Clarity Clear (Clear); Urine Urobilinogen Normal (Normal)
[2020-06-15 12:24] LABS: Bacteria 1+ /hpf (None Seen)
[2020-06-15 12:25] LABS: White Blood Cells 0-5 SEEN /hpf (0-5)
--- NOTE | 2020-06-15 13:26 | PCM.HP.STD ---
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 As per patient is only oriented to time, having progressive dementia. She also has chronic cough, mild shortness of breath on exertion with history of chronic lung disease and heart failure since 2006 after a neurologic event. She follows Dr. Escalona/Dr. Torres and Dr. shah. She had heart failure exacerbation about 2 years ago by [employer] gaming with [employer]. As per , there is no recent change in shortness of breath, cough or chest pain. Patient has history of recurrent UTI and was treated with Keflex about 3 to [address] Cueva. She also has chronic perineal pain, rectal pain, lumbar spinal stenosis and follows Dr. Evans and had lumbar spinal nerve block. As per , her weight usually between 115 217 pounds but today it was 120.9 pound. [] Chest x-ray done in ER reviewed and shows no significant change from previous chest x-ray of February 2020. Persistent right upper lobe opacity with bilateral pleural effusion. Chest CTA from February 2020 shows no demonstrated PE or arterial dissection, right upper lobe opacity with subpleural groundglass and interseptal thickening/fibrosis Vitals in the ER shows pulse ox 98% on room air, blood pressure 123/55 and heart rate 78/min. EKG normal sinus rhythm, LAD, LBBB at 75 bpm. The significant abnormal labs were BNP 2063, BUN/creatinine 19/1.39, H&H 9.5/30 and UA positive of LE 25 and nitrite. Past Medical History Past Medical History (Chronic Problems): Chronic Problems (Last Reviewed 03/30/20 @ 14:[address] 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 Gary Shah MD) Chronic combined systolic and diastolic CHF (congestive heart failure) (Chronic) I50.42 Non-ischemic cardiomyopathy (Chronic) I42.8 Paroxysmal atrial fibrillation (Chronic) I48.0 Left bundle branch block (LBBB) (Chronic) I44.7 Essential (primary) hypertension (Chronic) I10 CVA (cerebral vascular accident) (Chronic) I63.9 Expressive aphasia History of breast cancer (Chronic) Z85.3 Debility (Chronic) R53.81 Acute hypoxemic respiratory failure J96.01 Dementia F03.90 Expressive aphasia R47.01 Hypothyroidism E03.9 Breast cancer C50.919 Kidney stone N20.0 Left ureteral calculus N20.1 Vascular dementia F01.50 Secondary pulmonary arterial hypertension (Inactive) I27.21 Allergies Penicillins [PCN] Allergy (Verified 03/30/20 12:18) Rash Home Medications: Ambulatory Orders Medication Instructions Recorded cyclobenzaprine 5 mg tablet 5 mg PO BID tab 05/30/19 Calcium Citrate/Vitamin D3 1 tab PO TIDCM 08/19/19 [Calcium Cit 315-Vit D3 200 Tab] Cholecalciferol (Vitamin D3) 2,000 unit PO DAILY 08/19/19 [D3-2000] Levothyroxine Sodium [Levoxyl] 50 mcg PO QHS 08/19/19 Memantine Hydrochloride [Namenda] 10 mg PO BID 08/19/19 amiodarone 200 mg tablet 200 mg PO DAILY #90 tab 09/26/19 aspirin 81 mg tablet,delayed 81 mg PO DAILY 09/26/19 release docusate sodium 100 mg capsule 200 mg PO DAILY cap 09/26/19 carvedilol 3.125 mg tablet 3.125 mg PO BID #180 tab 12/13/19 polyethylene glycol 3350 17 17 g PO QHS 12/13/19 gram/dose oral powder Apixaban [Eliquis] 2.5 mg PO BID 02/17/20 Cyanocobalamin [Vitamin B12] 1,000 mcg PO DAILY@0800 02/17/20 Dymista 1 puff NASAL BID PRN PRN 02/17/20 Psyllium [Metamucil] 10 ml PO DAILY 02/17/20 duloxetine 40 mg capsule,delayed 40 mg PO DAILY 03/30/20 release sprinkle potassium chloride 10 mEq 10 meq PO BID PRN tab 03/30/20 tablet,extended release tramadol 100 mg tablet,extended 100 mg PO DAILY 03/30/20 release 24 hr Furosemide [Lasix] 20 mg PO WESA 06/15/20 Furosemide [Lasix] 40 mg PO MOFR 06/15/20 Surgical History: Surgical History (Last Reviewed 03/30/20 @ 14:[address] Gary Shah MD) H/O right mastectomy Z90.11 S/P ureteral stent placement Onset Date: 08/20/19 Z96.0 Surgical History: appendectomy, cataract, mastectomy - Right., - - Lumpectomy, tubal ligation, right breast mass biopsy. 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 Gary Shah MD) Grandmother Diabetes History Items: No pertinent history Paternal Family History: Family History (Last Reviewed 03/30/20 @ 14:[address] Gary Shah MD) Grandmother Diabetes History Items: No pertinent history Review of Systems Constitutional: Denies: Chills, Fever, Weight Change HEENT: Denies: Head Aches, Sinus Congestion, Sinus Drainage Cardiovascular: Denies: Chest Pain, Palpitations Respiratory: Reports: Cough - Chronic, Shortness of breath upon exertion. Denies: Shortness of breath at rest, Sputum production, Wheezing Gastrointestinal: Reports: -. Denies: Abdominal Pain, Nausea, Vomiting Genitourinary: Reports: - - Currently denies dysuria but has history of recurrent UTI with dysuria, perineal/pelvic and rectal pain. Denies: Dysuria Musculoskeletal: Denies: Joint Pain, Joint Tenderness Skin: Denies: Rash, Wounds Neurological: Reports: Balance problems, Incoordination. Denies: Focal weakness, Numbness, Tingling Psychiatric: Denies: Anxiety, Depression, Homicidal Ideations, Suicidal Ideations Hematologic/ Lymphatic: Denies: Easy Bruising, Easy Bleeding VTE Information - Inpt Only VTE Present on Admission: No VTE Mechan Device Prophylaxis: None VTE Pharm Prophylaxis ordered?: Yes Patient Problems: Active and Suspected Problems (Last Reviewed 03/30/20 @ 14:[address] Gary Shah MD) Acute on chronic combined systolic and d (Acute) - Physical Exam Vitals/I&O's: Vital Signs Temp Pulse Resp BP Pulse Ox 97.8 F 78 20 H 123/55 H 92 06/15/20 11:03 06/15/20 11:03 06/15/20 11:03 06/15/20 11:03 06/15/20 11:10 Oxygen Flow Rate (L/min) 5 Oxygen Delivery Method Nasal Cannula Weight: 120 lb 2.431 oz Body Mass Index (BMI) 21.2 General: Alert, Cooperative, - - Oriented to time but not place, person or situation. HEENT: Atraumatic, PERRLA, EOMI, Normocephalic Oral: Dry Mucosa Neck: Supple, No JVD, Negative Carotid Bruits Lungs: Diminished - Air entry diminished bilaterally more on the bilateral lung bases., Rales - Coarse rales present on the right upper chest. Cardiovascular: Regular rate, Regular Rhythm, Normal S1, Normal S2, Murmur - Systolic murmur present over left lower sternal border Abdomen: Bowel Sounds Present, Soft, Non Tender, Non-Distended Extremities: No edema, Capillary Refill Less than 3 Seconds, Edema - Mild leg edema, 1+ Skin: No rashes, No breakdown Musculoskeletal: No Tenderness to Palpation of Joints or Extremities, Arthritic Changes Neurological: Cranial nerves II-XII grossly intact, Deep Tendon Reflexes 2+/4 and Symmetrical, Neuro grossly intact Psych/Mental Status: Flat Affect Laboratory Results 06/15/20 11:37: WBC 6.8, RBC 3.21 L, Hgb 9.5 L, Hct 30.1 L, MCV 93.8, MCH 29.6, MCHC 31.6 L, RDW Std Deviation 59.3 H, RDW Coeff of Silvano 17.7 H, Plt Count 281, MPV 10.8, Immature Gran % (Auto) 0.300, Neut % (Auto) 78.4 H, Lymph % (Auto) 9.2 L, [place] % (Auto) 7.7, Eos % (Auto) 3.4, Baso % (Auto) 1.0, Absolute Neuts (auto) 5.4, Absolute Lymphs (auto) 0.63 L, Nucleated RBC % 0 06/15/20 11:37: PT 17.7 H, INR 1.5, APTT 35.3 06/15/20 11:37: Sodium 142, Potassium 3.9, Chloride 110 H, Carbon Dioxide 24.0, Anion Gap 8, BUN 19 H, Creatinine 1.39 H, Estim Creat Clear Calc 25.81, Est GFR (MDRD) Af Amer 47 L, Est GFR (MDRD) Non-Af 39 L, BUN/Creatinine Ratio 13.7, Glucose 119 H, Calcium 8.8, Magnesium 1.9, Total Bilirubin 1.00, Direct Bilirubin 0.30, AST 28, ALT 20, Alkaline Phosphatase 87, Troponin I < 0.015, Total Protein 6.6, Albumin 2.7 L, Globulin 3.9, Lipase 33 L 06/15/20 11:37: Lactic Acid 1.8 06/15/20 11:37: B-Natriuretic Peptide 2063.3 H 06/15/20 11:55: Urine Color Yellow, Urine Clarity Clear, Urine pH 5.0, Ur Specific [place] 1.025, Urine Protein 15 H, Urine Glucose (UA) Normal, Urine Ketones Negative, Urine Occult Blood Negative, Urine Nitrite Positive H, Urine Bilirubin Negative, Urine Urobilinogen Normal, Ur Leukocyte Esterase 25 H, Urine RBC 0 SEEN, Urine WBC 0-5 SEEN, Ur Squamous Epith Cells 0 SEEN, Urine Bacteria 1+, Urine Mucus 0 SEEN Assessment/Plan All Active Problems (Last Reviewed 03/30/20 @ 14:[address] Gary Shah MD) Acute on chronic combined systolic and d (Acute) The patient is a 84 year old F with multiple comorbidities including persistent right upper lobe opacities/possible interstitial lung disease, dilated cardiomyopathy EF 20 to 25% was brought in by her who is retired physician for general decline in ADL for past several weeks, unable to take care. EKG normal sinus rhythm, LAD, LBBB at 75 bpm. The significant abnormal labs were BNP 2063, BUN/creatinine 19/1.39, H&H 9.5/30 and UA positive of LE 25 and nitrite. 1. Acute on chronic systolic and diastolic heart failure with history of dilated/nonischemic cardiomyopathy: Patient is being admitted in PCU. 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 Patient received 60 mg IV Lasix in ER will continue Lasix 40 mg IV once daily and titrate as per hydration status. Heart failure core measures including fluid restriction, intake and output, low-salt, 2 g diet. Patient does not seem very fluid overload patient does not have much leg edema. She also had stress test done 1999 reported no ischemia detected. 2D echo Interpretation Summary Normal LV size. The estimated ejection fraction is 35 %. Stage 2 diastolic dysfunction. There is moderate to severe global hypokinesis of the left ventricle. Mild (1+) eccentric mitral valve insufficiency. Mild (1+) eccentric aortic valve insufficiency. Mild (1+) tricuspid valve insufficiency. The global longitudinal strain = -10.9% (abnormal). Compared to previous study, the left ventricular systolic function has improved.. 2. Chronic undiagnosed lung disease, predominant right upper lobe fibrosis/interstitial lung disease: As per , she does not have history of exposure to asbestos or other particulate/pollutants or fungal disease or TB. In the past, she has followed Dr. Escalona and Dr. Torres. PFT in December 2017 reported as presence of isolated mild reduction in DC. This could be related to underlying pulmonary vascular disorder, pulmonary hypertension. Reported no evidence of large airway obstruction ventilatory defect. 3. Progressive dementia with decreased ADL/physical debility/failure to thrive: PT and OT. Patient may need SNF placement. 4. Possible asymptomatic bacteriuria/UTI: As per , she is more confused in the last 2 weeks. Empirically started on IV Rocephin. Urine culture ordered. UA positive of nitrite although WBC 0-5 cells which more favorable to asymptomatic bacteriuria and patient denies currently dysuria. 5. Paroxysmal A. fib on Eliquis 6. Other chronic comorbidities include hypertension, history of CVA with expressive aphasia, breast cancer and dementia: Home medication reconciliation done Living will/advanced directive/end of life care: Patient does not have living will or advanced directive. Her , Dr. Dragan Ramirez is power of internet specialist for health. After discussion of procedures involved with full code, DNR CC arrest and DNR CC, her opted for DNR-CC Arrest Patient does not want artificial life support including intubation, tube feed, ventilator and/chest compression, central venous catheter, vasopressor and DC shock if needed DNR CC arrest. Total time spent in [id number] encounter in discussion of advanced directive 16 minutes Inpatient E&M: 45413 Init Hosp L3 Procedures: 23017 Advncd Care Plan 30 Min
[2020-06-15] MEDS: Furosemide 100 MG/10 ML Vial 60 MG IV (13:34)
[2020-06-15] MEDS: Aspirin E.C. 81 MG Tablet PO (15:37)
[2020-06-15] MEDS: Furosemide 40 MG/4 ML Vial IV (17:22)
[2020-06-15] MEDS: 0.9% Saline Lock 10 ML Syringe IV (17:22)
[2020-06-15] MEDS: Ceftriaxone 1 GM/50 ML BAG IV (19:44)
[2020-06-15] MEDS: Fluticasone 0.05% 1 SPRAY NASAL.SRY NASAL (22:37)
[2020-06-15] MEDS: cycloBENZAPRine HCl 5 MG TABLET PO (22:37)
[2020-06-15] MEDS: APIXABAN 2.5 MG TABLET PO (22:37)
[2020-06-15] MEDS: Carvedilol 3.125 MG TABLET PO (22:37)
[2020-06-15] MEDS: Memantine Hydrochloride 10 MG Tablet PO (22:38)
[2020-06-16] VITALS (13 sets, daily range): BP systolic 115–129; BP diastolic 59–89; PULSE 64–78; RESP 18–22; TEMP 36.4–36.7; O2SAT 89–95
[2020-06-16] MEDS: Levothyroxine 50 MCG Tablet PO (05:02)
[2020-06-16 06:28] LABS: Absolute Lymphocyte Count 0.78 X10^3/uL (0.83-4.51); Absolute Neutrophil Count 7.1 X10^3/uL (2.0-7.7); Basophil# 0.07 X10^3/uL; Basophil% 0.8 % (0-1); Eosinophil# 0.18 X10^3/uL; Eosinophils% 2.1 % (0-5); Hematocrit 31.3 % (37-47); Hemoglobin 10.1 g/dL (12.0-15.0); Lymphocyte # 0.78 X10^3/ul (4.0); Lymphocyte % 9.1 % (19-41); Mean Corp Hgb Conc 32.3 g/dL (32-36); Mean Corpuscular Hgb 29.6 pg (27.0-32.0); Mean Corpuscular Volume 91.8 fL (81-99); Mean Platelet Vol. 10.9 fl (6.2-12.0); Monocyte# 0.49 X10^3/uL; Monocyte% 5.7 % (0-10); NRBC Flagged by Analyzer 0 % (0-5); Neutrophil # 7.05 X10^3/uL (2.7-7.7); Neutrophil % 81.8 % (47-70); Platelet Count 306 K/mm3 (150-450); RBC Distribution Width CV 17.3 % (11.6-14.6); RBC Distribution Width SD 57.5 fl (35.1-43.9); Red Blood Count 3.41 M/mm3 (4.2-5.4); White Blood Count 8.6 K/mm3 (4.4-11.0)
[2020-06-16 06:58] LABS: Anion Gap 10 (5-15); BUN 20 mg/dL (7-18); BUN/Creat Ratio 14.1 RATIO (10-20); Calcium,Total 8.4 mg/dL (8.5-10.1); Chloride 105 mmol/L (98-107); Cholesterol 153 mg/dL (200); Creatinine, Serum 1.42 mg/dL (0.55-1.02); EST Glomerular Filtration Rate 38 mL/min (>60); Est Glom Filt Rate - Afr Amer 46 mL/min (>60); Estimated Creatinine Clearance 23.05 ml/min; Glucose 103 mg/dL (74-106); High Density Lipoprotein 63 mg/dL; Potassium 3.4 mmol/L (3.5-5.1); Sodium Level 140 mmol/L (136-145); Thyroid Stim Hormone (TSH) 0.27 uIU/mL (0.358-3.74); Triglycerides 79 mg/dL; Very Low Density Lipoprotein 16 mg/dL (5-40)
[2020-06-16] MEDS: DULoxetine Hcl 20 MG Capsule 40 MG PO (08:50)
[2020-06-16] MEDS: Carvedilol 3.125 MG TABLET PO ×2 (08:50→21:58)
[2020-06-16] MEDS: Memantine Hydrochloride 10 MG Tablet PO ×2 (08:50→21:58)
[2020-06-16] MEDS: Amiodarone 200 MG Tablet PO (08:50)
[2020-06-16] MEDS: Ceftriaxone 1 GM/50 ML BAG IV (08:50)
[2020-06-16] MEDS: Aspirin E.C. 81 MG Tablet PO (08:51)
[2020-06-16] MEDS: Furosemide 40 MG/4 ML Vial IV (08:51)
[2020-06-16] MEDS: Fluticasone 0.05% 1 SPRAY NASAL.SRY NASAL (08:51)
[2020-06-16] MEDS: cycloBENZAPRine HCl 5 MG TABLET PO (08:51)
[2020-06-16] MEDS: Cyanocobalamin 500 MCG Tablet 1000 MCG PO (08:51)
[2020-06-16] MEDS: APIXABAN 2.5 MG TABLET PO ×2 (08:52→21:58)
[2020-06-16] MEDS: Polyethylene Glycol 3350 17 GM PACKET PO (08:52)
--- NOTE | 2020-06-16 09:19 | CASEMGMT ---
Power of Director Of Logistics for Healthcare is on chart in summary tab w/Living Will provision initialed. Pt's Dragan Ramirez is listed as medical POA. AMPARO Shea
--- NOTE | 2020-06-16 11:12 | CASEMGMT ---
Pt has dementia and not able to speak w/SW at this time. SW called , voicemail on cell phone not set up. SW called home number, message left. SW will speak w/ should he call back today. AMPARO Shea
--- NOTE | 2020-06-16 12:58 | PCM.PROGNOTE ---
<Donna Victoria - Last Filed: 06/16/20 13:14> Patient Problems: Active and Suspected Problems (Last Reviewed 03/30/20 @ 14:[address] Gary Bullard MD) Acute on chronic combined systolic and d (Acute) Subjective: Patient seen and examined. Confused at this morning. Denies current symptoms or complaints. Oxygen noted to be off by nursing and patient was hypoxic at that time. Oxygen now stable on 4 L nasal cannula. - Physical Exam Vitals/I&O's: Vital Signs Temp Pulse Resp BP Pulse Ox 97.7 F L 66 18 126/82 H 93 06/16/20 10:42 06/16/20 10:42 06/16/20 10:42 06/16/20 10:42 06/16/20 10:42 Oxygen Flow Rate (L/min) 4 Oxygen Delivery Method Nasal Cannula Weight: 113 lb 8.609 oz Body Mass Index (BMI) 22.0 Intake and Output for Last 24 Hours 06/14/20 06/15/20 06/16/20 23:59 23:59 23:59 Intake Total 320 / 320 290 / 290 Output Total 2200 / 2200 575 / 575 Balance -1880 / -1880 -285 / -285 General: Alert, Oriented x3, Cooperative HEENT: Atraumatic, PERRLA, EOMI, Normocephalic Oral: Dry Mucosa Neck: Supple, No JVD, Negative Carotid Bruits Lungs: Clear to auscultation, Normal air movement Cardiovascular: Regular rate, No murmurs Abdomen: Bowel Sounds Present, Soft, Non Tender Extremities: No edema, Capillary Refill Less than 3 Seconds Skin: No rashes, No breakdown Musculoskeletal: No Tenderness to Palpation of Joints or Extremities, Cachexia, Muscle Wasting Neurological: Cranial nerves II-XII grossly intact, Neuro grossly intact Psych/Mental Status: Flat Affect Microbiology Past 72 Hours 06/15/20 11:55 Urine Catheter - Gastelum Urine Culture - 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 Laboratory Results 06/15/20 15:17: Troponin I < 0.015 06/15/20 17:56: Troponin I < 0.015 06/16/20 06:15: WBC 8.6, RBC 3.41 L, Hgb 10.1 L, Hct 31.3 L, MCV 91.8, MCH 29.6, MCHC 32.3, RDW Std Deviation 57.5 H, RDW Coeff of Silvano 17.3 H, Plt Count 306, MPV 10.9, Immature Gran % (Auto) 0.500, Neut % (Auto) 81.8 H, Lymph % (Auto) 9.1 L, Franklin % (Auto) 5.7, Eos % (Auto) 2.1, Baso % (Auto) 0.8, Absolute Neuts (auto) 7.1, Absolute Lymphs (auto) 0.78 L, Nucleated RBC % 0 06/16/20 06:15: Sodium 140, Potassium 3.4 L, Chloride 105, Carbon Dioxide 25.0, Anion Gap 10, BUN 20 H, Creatinine 1.42 H, Estim Creat Clear Calc 23.05, Est GFR (MDRD) Af Amer 46 L, Est GFR (MDRD) Non-Af 38 L, BUN/Creatinine Ratio 14.1, Glucose 103, Calcium 8.4 L, Triglycerides 79, Cholesterol 153, LDL Cholesterol 74, VLDL Cholesterol 16, HDL Cholesterol 63, TSH 0.27 L Current Medications Acetaminophen (Tylenol) 650 mg PO Q6H PRN PRN PRN Reason: Pain Score 1-10/Temp > 100.7 F Al Hydroxide/Mg Hydroxide (Mylanta Ii) 30 ml PO Q6H PRN PRN PRN Reason: Gastric Burning Albuterol Sulfate (Ventolin Aerosols) 2.5 mg INHALATION Q2H PRN PRN PRN Reason: SOB/Wheezing Amiodarone HCl (Cordarone) 200 mg PO DAILY [facility] Last Admin: 06/16/20 08:50 Dose: 200 mg Documented by: Apixaban (Eliquis) 2.5 mg PO BID [facility] Last Admin: 06/16/20 08:52 Dose: 2.5 mg Documented by: [facility]) [facility] Last Admin: 06/16/20 08:51 Dose: 81 mg Documented by: Carvedilol (Coreg) 3.125 mg PO BID [facility] Last Admin: 06/16/20 08:50 Dose: 3.125 mg Documented by: Cholecalciferol (Vitamin D (25mcg)) 2,000 unit PO DAILY [facility] Last Admin: 06/16/20 08:50 Dose: 2,000 unit Documented by: Cyanocobalamin (Vitamin B12) 1,000 mcg PO DAILY@0800 [facility] Last Admin: 06/16/20 08:51 Dose: 1,000 mcg Documented by: Cyclobenzaprine HCl (Cyclobenzaprine Hcl) 5 mg PO BID [facility] Last Admin: 06/16/20 08:51 Dose: 5 mg Documented by: Duloxetine HCl (Cymbalta) 40 mg PO DAILY [facility] Last Admin: 06/16/20 08:50 Dose: 40 mg Documented by: Fluticasone Propionate (Flonase Nasal Spring) 1 spray NASAL BID [facility] Last Admin: 06/16/20 08:51 Dose: 1 spray Documented by: Furosemide (Lasix) 40 mg IV DAILY [facility] Last Admin: 06/16/20 08:51 Dose: 40 mg Documented by: Guaifenesin (Robitussin) 20 ml PO Q4H PRN PRN PRN Reason: COUGH Sodium Chloride () 500 mls @ 15 mls/hr IV PRN PRN PRN Reason: Blood Transfusion Sodium Chloride () 250 mls @ 15 mls/hr IV .[id number] PRN PRN Reason: Saline Flush Sodium Chloride () 250 mls @ 15 mls/hr IV .[id number] PRN PRN Reason: Additional IVPB Infusion Ceftriaxone Sodium (Rocephin) 1 gm in 50 mls @ 100 mls/hr IV Q24 [facility] Last Infusion: 06/16/20 09:58 Dose: Infused Documented by: Levothyroxine Sodium (Synthroid) 50 mcg PO DAILY@0600 [facility] Last Admin: 06/16/20 05:02 Dose: 50 mcg Documented by: Memantine (Namenda) 10 mg PO BID [facility] Last Admin: 06/16/20 08:50 Dose: 10 mg Documented by: Morphine Sulfate () 2 mg IV Q3H PRN PRN PRN Reason: Pain Score 6-10/10 Oxycodone HCl (Oxyir) 5 mg PO Q4H PRN PRN PRN Reason: Pain Score 4-5/10 Polyethylene Glycol (Miralax) 17 gm PO DAILY [facility] Last Admin: 06/16/20 08:52 Dose: 17 gm Documented by: Potassium Chloride (K-Dur) 10 meq PO BID [facility] Stop: 06/17/20 10:01 Last Admin: 06/16/20 08:51 Dose: 10 meq Documented by: Prochlorperazine Edisylate (Compazine Iv) 5 mg IV Q4H PRN PRN PRN Reason: Breakthrough Nausea/Vomiting Psyllium Hydrophilic Mucilloid (Metamucil) 1 packet PO DAILY PRN PRN Reason: CONSTIPATION Senna/Docusate Sodium (Senokot-S, Lorin-Colace) 2 tablet PO BID PRN PRN PRN Reason: Constipation Sodium Chloride () 10 - 40 ml IV UD PRN PRN Reason: SALINE FLUSH Last Admin: 06/15/20 17:22 Dose: 10 ml Documented by: Medical Necessity - Tobacco Use Smoking Status: Never smoker Assessment/Plan All Active Problems (Last Reviewed 03/30/20 @ 14:[address] Gary Bullard MD) Acute on chronic combined systolic and d (Acute) 1. 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 CXR shows progressive infiltrates. Echocardiogram May 20, 2019 demonstrated an EF of 35%, stage II diastolic dysfunction. Continue IV Lasix. Will order repeat echo. 2. 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 PT/OT. Anticipate need for placement, social work discussing with family. 3. Asymptomatic bacteriuria-culture growing 11-25,000 GNR. Discontinue further antibiotics. 4. Paroxysmal atrial fibrillation-on anticoagulation with Eliquis. Continue carvedilol, amiodarone. 5. History of CVA with expressive aphasia-continue aspirin. Eliquis. 6. Hypertension- stable, continue amiodarone, carvedilol, lasix. 7. History of breast cancer-in remission. 8. Depression- continue paroxetine regimen. 9. Hypothyroidism-continue Synthroid regimen. 10. Central sleep apnea-continue home Pap therapy. DVT prophylaxis-Eliquis Discharge planning: Anticipate SNF pending facility choice by family and acceptance. This patient was seen by CHICO Garcia under the supervision of Dr. Roldan. 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 Laboratory Results 06/15/20 17:56: Troponin I < 0.015 06/16/20 06:15: WBC 8.6, RBC 3.41 L, Hgb 10.1 L, Hct 31.3 L, MCV 91.8, MCH 29.6, MCHC 32.3, RDW Std Deviation 57.5 H, RDW Coeff of Silvano 17.3 H, Plt Count 306, MPV 10.9, Immature Gran % (Auto) 0.500, Neut % (Auto) 81.8 H, Lymph % (Auto) 9.1 L, Franklin % (Auto) 5.7, Eos % (Auto) 2.1, Baso % (Auto) 0.8, Absolute Neuts (auto) 7.1, Absolute Lymphs (auto) 0.78 L, Nucleated RBC % 0 06/16/20 06:15: Sodium 140, Potassium 3.4 L, Chloride 105, Carbon Dioxide 25.0, Anion Gap 10, BUN 20 H, Creatinine 1.42 H, Estim Creat Clear Calc 23.05, Est GFR (MDRD) Af Amer 46 L, Est GFR (MDRD) Non-Af 38 L, BUN/Creatinine Ratio 14.1, Glucose 103, Calcium 8.4 L, Triglycerides 79, Cholesterol 153, LDL Cholesterol 74, VLDL Cholesterol 16, HDL Cholesterol 63, TSH 0.27 L 06/16/20 15:00: COVID-19 (LYNETTE) Negative Current Medications Acetaminophen (Tylenol) 650 mg PO Q6H PRN PRN PRN Reason: Pain Score 1-10/Temp > 100.7 F Last Admin: 06/16/20 13:22 Dose: 650 mg Documented by: Al Hydroxide/Mg Hydroxide (Mylanta Ii) 30 ml PO Q6H PRN PRN PRN Reason: Gastric Burning Albuterol Sulfate (Ventolin Aerosols) 2.5 mg INHALATION Q2H PRN PRN PRN Reason: SOB/Wheezing Amiodarone HCl (Cordarone) 200 mg PO DAILY [facility] Last Admin: 06/16/20 08:50 Dose: 200 mg Documented by: Apixaban (Eliquis) 2.5 mg PO BID [facility] Last Admin: 06/16/20 08:52 Dose: 2.5 mg Documented by: [facility]) [facility] Last Admin: 06/16/20 08:51 Dose: 81 mg Documented by: Carvedilol (Coreg) 3.125 mg PO BID [facility] Last Admin: 06/16/20 08:50 Dose: 3.125 mg Documented by: Cholecalciferol (Vitamin D (25mcg)) 2,000 unit PO DAILY [facility] Last Admin: 06/16/20 08:50 Dose: 2,000 unit Documented by: Cyanocobalamin (Vitamin B12) 1,000 mcg PO DAILY@0800 [facility] Last Admin: 06/16/20 08:51 Dose: 1,000 mcg Documented by: Cyclobenzaprine HCl (Cyclobenzaprine Hcl) 5 mg PO BID [facility] Last Admin: 06/16/20 08:51 Dose: 5 mg Documented by: Duloxetine HCl (Cymbalta) 40 mg PO DAILY [facility] Last Admin: 06/16/20 08:50 Dose: 40 mg Documented by: Fluticasone Propionate (Flonase Nasal Spring) 1 spray NASAL BID [facility] Last Admin: 06/16/20 08:51 Dose: 1 spray Documented by: Furosemide (Lasix) 40 mg IV DAILY [facility] Last Admin: 06/16/20 08:51 Dose: 40 mg Documented by: Guaifenesin (Robitussin) 20 ml PO Q4H PRN PRN PRN Reason: COUGH Sodium Chloride () 500 mls @ 15 mls/hr IV PRN PRN PRN Reason: Blood Transfusion Sodium Chloride () 250 mls @ 15 mls/hr IV .[id number] PRN PRN Reason: Saline Flush Sodium Chloride () 250 mls @ 15 mls/hr IV .[id number] PRN PRN Reason: Additional IVPB Infusion Levothyroxine Sodium (Synthroid) 50 mcg PO DAILY@0600 [facility] Last Admin: 06/16/20 05:02 Dose: 50 mcg Documented by: Memantine (Namenda) 10 mg PO BID [facility] Last Admin: 06/16/20 08:50 Dose: 10 mg Documented by: Morphine Sulfate () 2 mg IV Q3H PRN PRN PRN Reason: Pain Score 6-10/10 Last Admin: 06/16/20 15:57 Dose: 2 mg Documented by: Oxycodone HCl (Oxyir) 5 mg PO Q4H PRN PRN PRN Reason: Pain Score 4-5/10 Last Admin: 06/16/20 13:22 Dose: 5 mg Documented by: Polyethylene Glycol (Miralax) 17 gm PO DAILY [facility] Last Admin: 06/16/20 08:52 Dose: 17 gm Documented by: Potassium Chloride (K-Dur) 10 meq PO BID [facility] Stop: 06/17/20 10:01 Last Admin: 06/16/20 08:51 Dose: 10 meq Documented by: Prochlorperazine Edisylate (Compazine Iv) 5 mg IV Q4H PRN PRN PRN Reason: Breakthrough Nausea/Vomiting Psyllium Hydrophilic Mucilloid (Metamucil) 1 packet PO DAILY PRN PRN Reason: CONSTIPATION Senna/Docusate Sodium (Senokot-S, Lorin-Colace) 2 tablet PO BID PRN PRN PRN Reason: Constipation Sodium Chloride () 10 - 40 ml IV UD PRN PRN Reason: SALINE FLUSH Last Admin: 06/16/20 15:57 Dose: 10 ml Documented by: Assessment/Plan Patient seen by CHICO Garcia under my supervision. Patient is an 84-year-old female with an extensive past medical history as outlined was admitted through the ED on 06/15/2020 with a decline in activities of daily living for several weeks with her being unable to take care of her. She has been managed for acute on chronic systolic and diastolic heart failure as BNP was elevated at over 2000. She is currently on IV Lasix 40 mg twice daily. Patient seen and examined. Patient is demented and so could not really answer any questions but kept talking randomly. Unable to do review of systems. O/E: Vital Signs Temp Pulse Resp BP Pulse Ox 97.6 F L 65 18 115/62 93 06/16/20 15:50 06/16/20 15:50 06/16/20 15:50 06/16/20 15:50 06/16/20 15:50 General: Alert, confused, cooperative HEENT: Atraumatic, PERRLA, EOMI, Normocephalic Oral: Dry Mucosa Neck: Supple, No JVD, Negative Carotid Bruits Lungs: Clear to auscultation, Normal air movement Cardiovascular: Regular rate, No murmurs Abdomen: Bowel Sounds Present, Soft, Non Tender Extremities: No edema, Capillary Refill Less than 3 Seconds Skin: No rashes, No breakdown Musculoskeletal: No Tenderness to Palpation of Joints or Extremities, Cachexia, Muscle Wasting Neurological: Cranial nerves II-XII grossly intact, Neuro grossly intact Psych/Mental Status: confused. Plan is continue diuresing with IV Lasix 40 mg twice daily. Monitor intake and output. Fluid restriction 1500 cc daily. PT OT on board. Fall precautions. Will need placement as is unable to care for her at home. Rest as per CHICO Garcia's notes which I reviewed and endorsed. Inpatient E&M: [id number] [facility] L3
--- NOTE | 2020-06-16 13:17 | CASEMGMT ---
Addendum entered by Mela Carpenter 06/16/20 14:42: SW sent email to home care and asked they follow up w/ in regard to private hire home health aides. AMPARO Shea Original Note: SW received call back from pt's in regard to prior level of function and discharge plan. PCP: Dr. Loomis Specialists: Neurology at [facility], Dr. Torres for sleep apnea, Dr. Bullard for cardiology Preferred pharmacy: [facility] Insurance: Medicare, [facility] LW/POA: , on file Living arrangements: Pt lives w/ who helps pt w/ADLs. Transportation: DME: Walker, wheelchair grab bars, Cpap. HHC/SNF: has private hired aides from [facility] and pt has been to TCU three times as per . Assessment/Plan: As per , pt had started on medication when first diagnosed with dementia, and it rolled back the clock for two years. states that pt has been declining the last 6 months however. He explains that her short term memory and comprehension have been greatly impacted by the dementia. He states she can't visualize things, can't finish projects. He states she has a lot of back pain, other pain as well and needs to take Tramadol daily. He also states her heart failure is getting worse. She normally walks with a waker but the last two weeks she has been using a wheelchair and has not been able to get up. He states that he is 84 and he can't pick her up. SW offered support to . He would like for pt to go to TCU at discharge. He also states that he has used [facility] in the past for aides and has a call out to them but has not heard back. AIDA explained will send an email to the director. AIDA also explained will put pt's name on the TCU list and SW on Thursday will be back in touch w/him. AIDA called TCU, and message left. AIDA will continue to follow. AMPARO Shea
[2020-06-16] MEDS: Acetaminophen 325 MG Tablet 650 MG PO (13:22)
[2020-06-16] MEDS: oxyCODONE 5 MG Tablet PO (13:22)
[2020-06-16] MEDS: 0.9% Saline Lock 10 ML Syringe IV (15:57)
[2020-06-16] MEDS: Morphine 2 MG/ML Syringe IV (15:57)
[2020-06-16 16:26] LABS: Probe Check PASS; Specimen Processing Control PASS
[2020-06-17] VITALS (12 sets, daily range): BP systolic 109–123; BP diastolic 54–74; PULSE 72–84; RESP 18; TEMP 36.3–36.9; O2SAT 92–96
[2020-06-17 06:34] LABS: Anion Gap 8 (5-15); BUN 24 mg/dL (7-18); Calcium,Total 8.6 mg/dL (8.5-10.1); Chloride 106 mmol/L (98-107); Creatinine, Serum 1.41 mg/dL (0.55-1.02); EST Glomerular Filtration Rate 38 mL/min (>60); Est Glom Filt Rate - Afr Amer 46 mL/min (>60); Estimated Creatinine Clearance 23.21 ml/min; Glucose 169 mg/dL (74-106); Potassium 3.8 mmol/L (3.5-5.1); Sodium Level 141 mmol/L (136-145)
[2020-06-17] MEDS: Levothyroxine 50 MCG Tablet PO (06:35)
[2020-06-17] MEDS: Acetaminophen 325 MG Tablet 650 MG PO (07:29)
--- NOTE | 2020-06-17 09:01 | NURSING ---
Found patient in bed at this time, having taken off nasal cannula. Satting 70% on RA. Placed back on 4L NC, satting 82%. Attempted to change to 4L HF NC; no change in O2 saturations. Patient is a mouth breather. Placed on 35% venti mask, now satting 90-92%. Will monitor.
[2020-06-17] MEDS: Carvedilol 3.125 MG TABLET PO ×2 (09:05→21:23)
[2020-06-17] MEDS: DULoxetine Hcl 20 MG Capsule 40 MG PO (09:05)
[2020-06-17] MEDS: Memantine Hydrochloride 10 MG Tablet PO ×2 (09:05→21:25)
[2020-06-17] MEDS: Furosemide 40 MG/4 ML Vial IV (09:06)
[2020-06-17] MEDS: Aspirin E.C. 81 MG Tablet PO (09:06)
[2020-06-17] MEDS: 0.9% Saline Lock 10 ML Syringe IV (09:06)
[2020-06-17] MEDS: Polyethylene Glycol 3350 17 GM PACKET PO (09:06)
[2020-06-17] MEDS: cycloBENZAPRine HCl 5 MG TABLET PO ×2 (09:06→21:23)
[2020-06-17] MEDS: Fluticasone 0.05% 1 SPRAY NASAL.SRY NASAL ×2 (09:06→21:24)
[2020-06-17] MEDS: APIXABAN 2.5 MG TABLET PO ×2 (09:06→21:24)
[2020-06-17] MEDS: Amiodarone 200 MG Tablet PO (09:06)
[2020-06-17] MEDS: Cyanocobalamin 500 MCG Tablet 1000 MCG PO (09:07)
--- NOTE | 2020-06-17 12:31 | PCM.PROGNOTE ---
<Donna Victoria - Last Filed: 06/17/20 12:36> Patient Problems: Active and Suspected Problems (Last Reviewed 03/30/20 @ 14:[address] Gary Bullard MD) Acute on chronic combined systolic and d (Acute) Subjective: Patient seen and examined. Drowsy this morning. Remains confused. Appears comfortable, less restless. Plan for TCU pending acceptance. - Physical Exam Vitals/I&O's: Vital Signs Temp Pulse Resp BP Pulse Ox 97.5 F L 72 18 112/54 L 92 06/17/20 09:03 06/17/20 11:00 06/17/20 09:03 06/17/20 09:03 06/17/20 09:03 Oxygen Flow Rate (L/min) 4 Oxygen Delivery Method Venturi Mask Weight: 112 lb 14.027 oz Body Mass Index (BMI) 22.0 Intake and Output for Last 24 Hours 06/15/20 06/16/20 06/17/20 23:59 23:59 23:59 Intake Total 320 / 320 510 / 510 480 / 480 Output Total 2200 / 2200 750 / 750 175 / 175 Balance -1880 / -1880 -240 / -240 305 / 305 General: Confused, - - Drowsy HEENT: Atraumatic, PERRLA, EOMI, Normocephalic Oral: Dry Mucosa Neck: Supple, No JVD, Negative Carotid Bruits Lungs: Clear to auscultation, Normal air movement Cardiovascular: Regular rate, No murmurs Abdomen: Bowel Sounds Present, Soft, Non Tender Extremities: No clubbing, No cyanosis, No edema, Capillary Refill Less than 3 Seconds Skin: No rashes, No breakdown Musculoskeletal: No Tenderness to Palpation of Joints or Extremities, Cachexia, Muscle Wasting Neurological: Cranial nerves II-XII grossly intact, Neuro grossly intact Psych/Mental Status: Restless, - - Confused Microbiology Past 72 Hours 06/15/20 12:10 Blood Culture (Wb) - Anticubital Right Blood Culture - Preliminary No growth in 48 hours. 06/15/20 11:37 Blood Culture (Wb) - Anticubital Left Blood Culture - Preliminary No growth in 48 hours. 06/15/20 11:55 Urine Catheter - Gastelum Urine Culture - Final Escherichia coli Laboratory Results 06/16/20 15:00: COVID-19 ([facility]) Negative 06/17/20 05:36: Sodium 141, Potassium 3.8, Chloride 106, Carbon Dioxide 27.0, Anion Gap 8, BUN 24 H, Creatinine 1.41 H, Estim Creat Clear Calc 23.21, Est GFR (MDRD) Af Amer 46 L, Est GFR (MDRD) Non-Af 38 L, BUN/Creatinine Ratio 17.0, Glucose 169 H, Calcium 8.6 Current Medications Acetaminophen (Tylenol) 650 mg PO Q6H PRN PRN PRN Reason: Pain Score 1-10/Temp > 100.7 F Last Admin: 06/17/20 07:29 Dose: 650 mg Documented by: Al Hydroxide/Mg Hydroxide (Mylanta Ii) 30 ml PO Q6H PRN PRN PRN Reason: Gastric Burning Albuterol Sulfate (Ventolin Aerosols) 2.5 mg INHALATION Q2H PRN PRN PRN Reason: SOB/Wheezing Amiodarone HCl (Cordarone) 200 mg PO DAILY [facility] Last Admin: 06/17/20 09:06 Dose: 200 mg Documented by: Apixaban (Eliquis) 2.5 mg PO BID [facility] Last Admin: 06/17/20 09:06 Dose: 2.5 mg Documented by: [facility] Last Admin: 06/17/20 09:06 Dose: 81 mg Documented by: Carvedilol (Coreg) 3.125 mg PO BID [facility] Last Admin: 06/17/20 09:05 Dose: 3.125 mg Documented by: Cholecalciferol (Vitamin D (25mcg)) 2,000 unit PO DAILY [facility] Last Admin: 06/17/20 09:05 Dose: 2,000 unit Documented by: Cyanocobalamin (Vitamin B12) 1,000 mcg PO DAILY@0800 [facility] Last Admin: 06/17/20 09:07 Dose: 1,000 mcg Documented by: Cyclobenzaprine HCl (Cyclobenzaprine Hcl) 5 mg PO BID [facility] Last Admin: 06/17/20 09:06 Dose: 5 mg Documented by: Duloxetine HCl (Cymbalta) 40 mg PO DAILY [facility] Last Admin: 06/17/20 09:05 Dose: 40 mg Documented by: Fluticasone Propionate (Flonase Nasal [place]) 1 spray NASAL BID [facility] Last Admin: 06/17/20 09:06 Dose: 1 spray Documented by: Furosemide (Lasix) 40 mg IV DAILY [facility] Last Admin: 06/17/20 09:06 Dose: 40 mg Documented by: Guaifenesin (Robitussin) 20 ml PO Q4H PRN PRN PRN Reason: COUGH Sodium Chloride () 500 mls @ 15 mls/hr IV PRN PRN PRN Reason: Blood Transfusion Sodium Chloride () 250 mls @ 15 mls/hr IV .[id number] PRN PRN Reason: Saline Flush Sodium Chloride () 250 mls @ 15 mls/hr IV .[id number] PRN PRN Reason: Additional IVPB Infusion Levothyroxine Sodium (Synthroid) 50 mcg PO DAILY@0600 [facility] Last Admin: 06/17/20 06:35 Dose: 50 mcg Documented by: Memantine (Namenda) 10 mg PO BID [facility] Last Admin: 06/17/20 09:05 Dose: 10 mg Documented by: Morphine Sulfate () 2 mg IV Q3H PRN PRN PRN Reason: Pain Score 6-10/10 Last Admin: 06/16/20 15:57 Dose: 2 mg Documented by: Oxycodone HCl (Oxyir) 5 mg PO Q4H PRN PRN PRN Reason: Pain Score 4-5/10 Last Admin: 06/16/20 13:22 Dose: 5 mg Documented by: Polyethylene Glycol (Miralax) 17 gm PO DAILY [facility] Last Admin: 06/17/20 09:06 Dose: 17 gm Documented by: Prochlorperazine Edisylate (Compazine Iv) 5 mg IV Q4H PRN PRN PRN Reason: Breakthrough Nausea/Vomiting Psyllium Hydrophilic Mucilloid (Metamucil) 1 packet PO DAILY PRN PRN Reason: CONSTIPATION Senna/Docusate Sodium (Senokot-S, Lorin-Colace) 2 tablet PO BID PRN PRN PRN Reason: Constipation Sodium Chloride () 10 - 40 ml IV UD PRN PRN Reason: SALINE FLUSH Last Admin: 06/17/20 09:06 Dose: 10 ml Documented by: Medical Necessity - Tobacco Use Smoking Status: Never smoker Assessment/Plan All Active Problems (Last Reviewed 03/30/20 @ 14:[address] Gary Bullard MD) Acute on chronic combined systolic and d (Acute) 1. 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 CXR shows progressive infiltrates. Echocardiogram May 20, 2019 demonstrated an EF of 35%, stage II diastolic dysfunction. Continue IV Lasix. Discussed with patient's , will not order repeat echo as this has been discussed with cardiology and likely repeat echo would not change lead. Plan for transition to oral Lasix tomorrow. Continue supplement oxygen to maintain O2 at or above 90%. 2. 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 PT/OT. TCU at discharge. 3. Asymptomatic bacteriuria-culture growing 11-25,000 e.coli. Discontinue further antibiotics. 4. Paroxysmal atrial fibrillation-on anticoagulation with Eliquis. Continue carvedilol, amiodarone. 5. History of CVA with expressive aphasia-continue aspirin. Eliquis. 6. Hypertension- stable, continue amiodarone, carvedilol, lasix. 7. History of breast cancer-in remission. 8. Depression- continue paroxetine regimen. 9. Hypothyroidism-continue Synthroid regimen. 10. Central sleep apnea-continue home Pap therapy. DVT prophylaxis-Eliquis Discharge planning: TCU pending acceptance. This patient was seen by CHICO Garcia under the supervision of Dr. Roldan. <Mabel Roldan - Last Filed: 06/17/20 13:13> - Physical Exam Vitals/I&O's: Vital Signs Temp Pulse Resp BP Pulse Ox 97.5 F L 72 18 112/54 L 92 06/17/20 09:03 06/17/20 11:00 06/17/20 09:03 06/17/20 09:03 06/17/20 09:03 Oxygen Flow Rate (L/min) 4 Oxygen Delivery Method Venturi Mask Weight: 112 lb 14.027 oz Body Mass Index (BMI) 22.0 Intake and Output for Last 24 Hours 06/15/20 06/16/20 06/17/20 23:59 23:59 23:59 Intake Total 320 / 320 510 / 510 480 / 480 Output Total 2200 / 2200 750 / 750 175 / 175 Balance -1880 / -1880 -240 / -240 305 / 305 Microbiology Past 72 Hours 06/15/20 12:10 Blood Culture (Wb) - Anticubital Right Blood Culture - Preliminary No growth in 48 hours. 06/15/20 11:37 Blood Culture (Wb) - Anticubital Left Blood Culture - Preliminary No growth in 48 hours. 06/15/20 11:55 Urine Catheter - Gastelum Urine Culture - Final Escherichia coli Laboratory Results 06/16/20 15:00: COVID-19 ([facility]) Negative 06/17/20 05:36: Sodium 141, Potassium 3.8, Chloride 106, Carbon Dioxide 27.0, Anion Gap 8, BUN 24 H, Creatinine 1.41 H, Estim Creat Clear Calc 23.21, Est GFR (MDRD) Af Amer 46 L, Est GFR (MDRD) Non-Af 38 L, BUN/Creatinine Ratio 17.0, Glucose 169 H, Calcium 8.6 Current Medications Acetaminophen (Tylenol) 650 mg PO Q6H PRN PRN PRN Reason: Pain Score 1-10/Temp > 100.7 F Last Admin: 06/17/20 07:29 Dose: 650 mg Documented by: Al Hydroxide/Mg Hydroxide (Mylanta Ii) 30 ml PO Q6H PRN PRN PRN Reason: Gastric Burning Albuterol Sulfate (Ventolin Aerosols) 2.5 mg INHALATION Q2H PRN PRN PRN Reason: SOB/Wheezing Amiodarone HCl (Cordarone) 200 mg PO DAILY [facility] Last Admin: 06/17/20 09:06 Dose: 200 mg Documented by: Apixaban (Eliquis) 2.5 mg PO BID [facility] Last Admin: 06/17/20 09:06 Dose: 2.5 mg Documented by: [facility]) [facility] Last Admin: 06/17/20 09:06 Dose: 81 mg Documented by: Carvedilol (Coreg) 3.125 mg PO BID [facility] Last Admin: 06/17/20 09:05 Dose: 3.125 mg Documented by: Cholecalciferol (Vitamin D (25mcg)) 2,000 unit PO DAILY [facility] Last Admin: 06/17/20 09:05 Dose: 2,000 unit Documented by: Cyanocobalamin (Vitamin B12) 1,000 mcg PO DAILY@0800 [facility] Last Admin: 06/17/20 09:07 Dose: 1,000 mcg Documented by: Cyclobenzaprine HCl (Cyclobenzaprine Hcl) 5 mg PO BID [facility] Last Admin: 06/17/20 09:06 Dose: 5 mg Documented by: Duloxetine HCl (Cymbalta) 40 mg PO DAILY [facility] Last Admin: 06/17/20 09:05 Dose: 40 mg Documented by: Fluticasone Propionate (Flonase Nasal [place]) 1 spray NASAL BID [facility] Last Admin: 06/17/20 09:06 Dose: 1 spray Documented by: Furosemide (Lasix) 40 mg IV DAILY [facility] Last Admin: 06/17/20 09:06 Dose: 40 mg Documented by: Guaifenesin (Robitussin) 20 ml PO Q4H PRN PRN PRN Reason: COUGH Sodium Chloride () 500 mls @ 15 mls/hr IV PRN PRN PRN Reason: Blood Transfusion Sodium Chloride () 250 mls @ 15 mls/hr IV .[id number] PRN PRN Reason: Saline Flush Sodium Chloride () 250 mls @ 15 mls/hr IV .[id number] PRN PRN Reason: Additional IVPB Infusion Levothyroxine Sodium (Synthroid) 50 mcg PO DAILY@0600 [facility] Last Admin: 06/17/20 06:35 Dose: 50 mcg Documented by: Memantine (Namenda) 10 mg PO BID [facility] Last Admin: 06/17/20 09:05 Dose: 10 mg Documented by: Morphine Sulfate () 2 mg IV Q3H PRN PRN PRN Reason: Pain Score 6-10/10 Last Admin: 06/16/20 15:57 Dose: 2 mg Documented by: Oxycodone HCl (Oxyir) 5 mg PO Q4H PRN PRN PRN Reason: Pain Score 4-5/10 Last Admin: 06/16/20 13:22 Dose: 5 mg Documented by: Polyethylene Glycol (Miralax) 17 gm PO DAILY [facility] Last Admin: 06/17/20 09:06 Dose: 17 gm Documented by: Prochlorperazine Edisylate (Compazine Iv) 5 mg IV Q4H PRN PRN PRN Reason: Breakthrough Nausea/Vomiting Psyllium Hydrophilic Mucilloid (Metamucil) 1 packet PO DAILY PRN PRN Reason: CONSTIPATION Senna/Docusate Sodium (Senokot-S, Lorin-Colace) 2 tablet PO BID PRN PRN PRN Reason: Constipation Sodium Chloride () 10 - 40 ml IV UD PRN PRN Reason: SALINE FLUSH Last Admin: 06/17/20 09:06 Dose: 10 ml Documented by: Assessment/Plan Patient seen by CHICO Garcia under my supervision. Patient seen and examined today. She was confused and thought she was at a democr[facility]. She is noted to be on 4 L of oxygen. Per her nurse, when she tried weaning her down, she was saturating at 88%. She remains on iV lasix. O/E Vital Signs Temp Pulse Resp BP Pulse Ox 97.5 F L 72 18 112/54 L 92 06/17/20 09:03 06/17/20 11:00 06/17/20 09:03 06/17/20 09:03 06/17/20 09:03 General: Alert, confused, cooperative HEENT: Atraumatic, PERRLA, EOMI, Normocephalic Oral: Dry Mucosa Neck: Supple, No JVD, Negative Carotid Bruits Lungs: breath sounds mildly diminished bibasally, no wheezes or crackles. Cardiovascular: Regular rate, No murmurs Abdomen: Bowel Sounds Present, Soft, Non Tender Extremities: No edema, Capillary Refill Less than 3 Seconds Skin: No rashes, No breakdown Musculoskeletal: No Tenderness to Palpation of Joints or Extremities, Cachexia, Muscle Wasting Neurological: Cranial nerves II-XII grossly intact, Neuro grossly intact Psych/Mental Status: confused. Plan is continue diuresing with IV Lasix 40 mg twice daily. Monitor intake and output. Fluid restriction 1500 cc daily. PT OT on board. Fall precautions. Titrate oxygen to maintain saturation above 90%. Will need placement as is unable to care for her at home. Rest as per CHICO Garcia's notes which I reviewed and endorsed. Inpatient E&M: [id number] Subs Hosp L2
--- NOTE | 2020-06-17 22:15 | NURSING ---
SpO2 on 24% venti mask is 83-88% with good pleth that correlates with cardiac care nurse. RT at bedside, increased venti mask to 31%. SpO2 increases to 95% with good pleth that correlates with cardiac care nurse. Will notify Dr. Espinoza.
[2020-06-18] VITALS (16 sets, daily range): BP systolic 100–117; BP diastolic 57–78; PULSE 75–84; RESP 12–32; TEMP 36.6–37.1; O2SAT 90–98
[2020-06-18] MEDS: Levothyroxine 50 MCG Tablet PO (06:21)
[2020-06-18 06:47] LABS: Anion Gap 8 (5-15); BUN 23 mg/dL (7-18); BUN/Creat Ratio 17.4 RATIO (10-20); Calcium,Total 8.5 mg/dL (8.5-10.1); Chloride 106 mmol/L (98-107); Creatinine, Serum 1.32 mg/dL (0.55-1.02); EST Glomerular Filtration Rate 41 mL/min (>60); Est Glom Filt Rate - Afr Amer 50 mL/min (>60); Glucose 124 mg/dL (74-106); Potassium 3.9 mmol/L (3.5-5.1); Sodium Level 139 mmol/L (136-145)
--- NOTE | 2020-06-18 08:33 | RAD_ITS ---
STUDY: X-RAY CHEST REASON FOR EXAM: Female, 84 years old. HYPOXIA TECHNIQUE: Single AP portable view of the chest. COMPARISON: 06/15/2020 FINDINGS: No change in the alveolar opacity throughout both lungs consistent with bilateral pneumonia, pulmonary edema, or ARDS. There is no demonstrated pleural abnormality. Normal size heart. Normal mediastinum and adithya. Normal visualized pulmonary arteries. Normal visualized aortic arch and descending thoracic aorta. Normal visualized thoracic spine. Normal visualized ribs, clavicles, and shoulders. There is no demonstrated abnormality of the visualized soft tissue structures of the upper abdomen. RAD/Chest 1 View (Portable) IMPRESSION: No change from 06/15/2020. Electronically Signed: Mynor Coelho MD at 9:50 EDT Tel , Service support ,
--- NOTE | 2020-06-18 09:23 | CASEMGMT ---
SW received a call from [facility] in TCU and they will have a bed for patient at discharge. SW to follow for d/c to TCU when medically ready. Jimena HAIRSTON MSW
--- NOTE | 2020-06-18 09:45 | CPS ---
RN reports that the patient was taken off BiPAP at 0940
[2020-06-18] MEDS: cycloBENZAPRine HCl 5 MG TABLET PO ×2 (10:23→22:28)
[2020-06-18] MEDS: DULoxetine Hcl 20 MG Capsule 40 MG PO (10:23)
[2020-06-18] MEDS: Carvedilol 3.125 MG TABLET PO ×2 (10:23→22:28)
[2020-06-18] MEDS: Amiodarone 200 MG Tablet PO (10:23)
[2020-06-18] MEDS: Cyanocobalamin 500 MCG Tablet 1000 MCG PO (10:23)
[2020-06-18] MEDS: Aspirin E.C. 81 MG Tablet PO (10:23)
[2020-06-18] MEDS: Furosemide 40 MG/4 ML Vial IV ×2 (10:24→22:28)
[2020-06-18] MEDS: APIXABAN 2.5 MG TABLET PO ×2 (10:24→22:28)
[2020-06-18] MEDS: Memantine Hydrochloride 10 MG Tablet PO ×2 (10:24→22:28)
[2020-06-18] MEDS: Polyethylene Glycol 3350 17 GM PACKET PO (10:24)
[2020-06-18] MEDS: Fluticasone 0.05% 1 SPRAY NASAL.SRY NASAL (10:24)
[2020-06-18] MEDS: 0.9% Saline Lock 10 ML Syringe IV (10:29)
--- NOTE | 2020-06-18 12:13 | PCM.PROGNOTE ---
<Donna Victoria - Last Filed: 06/18/20 12:19> Patient Problems: Active and Suspected Problems (Last Reviewed 03/30/20 @ 14:[address] Gary Bullard MD) Acute on chronic combined systolic and d (Acute) Subjective: Patient seen and examined. Placed on BiPAP overnight due to hypoxia. Chest x-ray repeated, unchanged from prior. Patient denies increased shortness of breath. Oxygen now stable on nasal cannula. - Physical Exam Vitals/I&O's: Vital Signs Temp Pulse Resp BP Pulse Ox 98.8 F 80 23 H 114/78 94 06/18/20 08:30 06/18/20 08:30 06/18/20 08:30 06/18/20 08:30 06/18/20 10:35 Oxygen Flow Rate (L/min) 6 Oxygen Delivery Method Nasal Cannula Weight: 113 lb 5.082 oz Body Mass Index (BMI) 22.0 Intake and Output for Last 24 Hours 06/16/20 06/17/20 06/18/20 23:59 23:59 23:59 Intake Total 510 / 510 840 / 1320 720 / 720 Output Total 750 / 750 350 / 750 400 / 400 Balance -240 / -240 490 / 570 320 / 320 General: Alert, Cooperative, Confused HEENT: Atraumatic, PERRLA, EOMI, Normocephalic Oral: Dry Mucosa Neck: Supple, No JVD, Negative Carotid Bruits Lungs: Clear to auscultation, Diminished Cardiovascular: Regular rate, No murmurs Abdomen: Bowel Sounds Present, Soft, Non Tender, Non-Distended Extremities: No clubbing, No cyanosis, No edema, Capillary Refill Less than 3 Seconds Skin: No rashes, No breakdown Musculoskeletal: No Tenderness to Palpation of Joints or Extremities, Cachexia, Muscle Wasting Neurological: Cranial nerves II-XII grossly intact, Neuro grossly intact Psych/Mental Status: Normal Affect, - - Confused Microbiology Past 72 Hours 06/15/20 12:10 Blood Culture (Wb) - Anticubital Right Blood Culture - Preliminary No growth in 48 hours. 06/15/20 11:37 Blood Culture (Wb) - Anticubital Left Blood Culture - Preliminary No growth in 48 hours. 06/15/20 11:55 Urine Catheter - Gastelum Urine Culture - Final Escherichia coli Laboratory Results 06/18/20 05:55: Sodium 139, Potassium 3.9, Chloride 106, Carbon Dioxide 25.0, Anion Gap 8, BUN 23 H, Creatinine 1.32 H, Estim Creat Clear Calc 24.80, Est GFR (MDRD) Af Amer 50 L, Est GFR (MDRD) Non-Af 41 L, BUN/Creatinine Ratio 17.4, Glucose 124 H, Calcium 8.5 Current Medications Acetaminophen (Tylenol) 650 mg PO Q6H PRN PRN PRN Reason: Pain Score 1-10/Temp > 100.7 F Last Admin: 06/17/20 07:29 Dose: 650 mg Documented by: Al Hydroxide/Mg Hydroxide (Mylanta Ii) 30 ml PO Q6H PRN PRN PRN Reason: Gastric Burning Albuterol Sulfate (Ventolin Aerosols) 2.5 mg INHALATION Q2H PRN PRN PRN Reason: SOB/Wheezing Amiodarone HCl (Cordarone) 200 mg PO DAILY [facility] Last Admin: 06/18/20 10:23 Dose: 200 mg Documented by: Apixaban (Eliquis) 2.5 mg PO BID [facility] Last Admin: 06/18/20 10:24 Dose: 2.5 mg Documented by: [facility] Last Admin: 06/18/20 10:23 Dose: 81 mg Documented by: Carvedilol (Coreg) 3.125 mg PO BID [facility] Last Admin: 06/18/20 10:23 Dose: 3.125 mg Documented by: Cholecalciferol (Vitamin D (25mcg)) 2,000 unit PO DAILY [facility] Last Admin: 06/18/20 10:24 Dose: 2,000 unit Documented by: Cyanocobalamin (Vitamin B12) 1,000 mcg PO DAILY@0800 [facility] Last Admin: 06/18/20 10:23 Dose: 1,000 mcg Documented by: Cyclobenzaprine HCl (Cyclobenzaprine Hcl) 5 mg PO BID [facility] Last Admin: 06/18/20 10:23 Dose: 5 mg Documented by: Duloxetine HCl (Cymbalta) 40 mg PO DAILY [facility] Last Admin: 06/18/20 10:23 Dose: 40 mg Documented by: Fluticasone Propionate (Flonase Nasal [place]) 1 spray NASAL BID [facility] Last Admin: 06/18/20 10:24 Dose: 1 spray Documented by: Furosemide (Lasix) 40 mg IV DAILY [facility] Last Admin: 06/18/20 10:24 Dose: 40 mg Documented by: Guaifenesin (Robitussin) 20 ml PO Q4H PRN PRN PRN Reason: COUGH Sodium Chloride () 500 mls @ 15 mls/hr IV PRN PRN PRN Reason: Blood Transfusion Sodium Chloride () 250 mls @ 15 mls/hr IV .[id number] PRN PRN Reason: Saline Flush Sodium Chloride () 250 mls @ 15 mls/hr IV .[id number] PRN PRN Reason: Additional IVPB Infusion Levothyroxine Sodium (Synthroid) 50 mcg PO DAILY@0600 [facility] Last Admin: 06/18/20 06:21 Dose: 50 mcg Documented by: Memantine (Namenda) 10 mg PO BID [facility] Last Admin: 06/18/20 10:24 Dose: 10 mg Documented by: Morphine Sulfate () 2 mg IV Q3H PRN PRN PRN Reason: Pain Score 6-10/10 Last Admin: 06/16/20 15:57 Dose: 2 mg Documented by: Oxycodone HCl (Oxyir) 5 mg PO Q4H PRN PRN PRN Reason: Pain Score 4-5/10 Last Admin: 06/16/20 13:22 Dose: 5 mg Documented by: Polyethylene Glycol (Miralax) 17 gm PO DAILY [facility] Last Admin: 06/18/20 10:24 Dose: 17 gm Documented by: Prochlorperazine Edisylate (Compazine Iv) 5 mg IV Q4H PRN PRN PRN Reason: Breakthrough Nausea/Vomiting Psyllium Hydrophilic Mucilloid (Metamucil) 1 packet PO DAILY PRN PRN Reason: CONSTIPATION Senna/Docusate Sodium (Senokot-S, Lorin-Colace) 2 tablet PO BID PRN PRN PRN Reason: Constipation Sodium Chloride () 10 - 40 ml IV UD PRN PRN Reason: SALINE FLUSH Last Admin: 06/18/20 10:29 Dose: 10 ml Documented by: Medical Necessity - Tobacco Use Smoking Status: Never smoker Assessment/Plan All Active Problems (Last Reviewed 03/30/20 @ 14:[address] Gary Bullard MD) Acute on chronic combined systolic and d (Acute) 1. 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 CXR shows progressive infiltrates. Echocardiogram May 20, 2019 demonstrated an EF of 35%, stage II diastolic dysfunction. Continue IV Lasix. Discussed with patient's , will not order repeat echo as this has been discussed with cardiology and likely repeat echo would not change house attendant. Continue supplement oxygen to maintain O2 at or above 90%. Repeat chest x-ray this morning unchanged from prior. 2. 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 PT/OT. TCU at discharge. 3. Asymptomatic bacteriuria-culture growing 11-25,000 e.coli. Discontinue further antibiotics. 4. Paroxysmal atrial fibrillation-on anticoagulation with Eliquis. Continue carvedilol, amiodarone. 5. History of CVA with expressive aphasia-continue aspirin. Eliquis. 6. Hypertension- stable, continue amiodarone, carvedilol, lasix. 7. History of breast cancer-in remission. 8. Depression- continue paroxetine regimen. 9. Hypothyroidism-continue Synthroid regimen. 10. Central sleep apnea-continue home Pap therapy. DVT prophylaxis-Eliquis Discharge planning: TCU pending medically stable. This patient was seen by CHICO Garcia under the supervision of Dr. Blank. <Amarjit Blank F - Last Filed: 06/18/20 12:51> - Physical Exam Vitals/I&O's: Vital Signs Temp Pulse Resp BP Pulse Ox 98.8 F 80 23 H 114/78 94 06/18/20 08:30 06/18/20 08:30 06/18/20 08:30 06/18/20 08:30 06/18/20 10:35 Oxygen Flow Rate (L/min) 6 Oxygen Delivery Method Nasal Cannula Weight: 113 lb 5.082 oz Body Mass Index (BMI) 22.0 Intake and Output for Last 24 Hours 06/16/20 06/17/20 06/18/20 23:59 23:59 23:59 Intake Total 510 / 510 840 / 1320 720 / 720 Output Total 750 / 750 350 / 750 400 / 400 Balance -240 / -240 490 / 570 320 / 320 Microbiology Past 72 Hours 06/15/20 12:10 Blood Culture (Wb) - Anticubital Right Blood Culture - Preliminary No growth in 48 hours. 06/15/20 11:37 Blood Culture (Wb) - Anticubital Left Blood Culture - Preliminary No growth in 48 hours. 06/15/20 11:55 Urine Catheter - Gastelum Urine Culture - Final Escherichia coli Laboratory Results 06/18/20 05:55: Sodium 139, Potassium 3.9, Chloride 106, Carbon Dioxide 25.0, Anion Gap 8, BUN 23 H, Creatinine 1.32 H, Estim Creat Clear Calc 24.80, Est GFR (MDRD) Af Amer 50 L, Est GFR (MDRD) Non-Af 41 L, BUN/Creatinine Ratio 17.4, Glucose 124 H, Calcium 8.5 Current Medications Acetaminophen (Tylenol) 650 mg PO Q6H PRN PRN PRN Reason: Pain Score 1-10/Temp > 100.7 F Last Admin: 06/17/20 07:29 Dose: 650 mg Documented by: Al Hydroxide/Mg Hydroxide (Mylanta Ii) 30 ml PO Q6H PRN PRN PRN Reason: Gastric Burning Albuterol Sulfate (Ventolin Aerosols) 2.5 mg INHALATION Q2H PRN PRN PRN Reason: SOB/Wheezing Amiodarone HCl (Cordarone) 200 mg PO DAILY [facility] Last Admin: 06/18/20 10:23 Dose: 200 mg Documented by: Apixaban (Eliquis) 2.5 mg PO BID [facility] Last Admin: 06/18/20 10:24 Dose: 2.5 mg Documented by: [facility] ([facility]) [facility] Last Admin: 06/18/20 10:23 Dose: 81 mg Documented by: Carvedilol (Coreg) 3.125 mg PO BID [facility] Last Admin: 06/18/20 10:23 Dose: 3.125 mg Documented by: Cholecalciferol (Vitamin D (25mcg)) 2,000 unit PO DAILY [facility] Last Admin: 06/18/20 10:24 Dose: 2,000 unit Documented by: Cyanocobalamin (Vitamin B12) 1,000 mcg PO DAILY@0800 [facility] Last Admin: 06/18/20 10:23 Dose: 1,000 mcg Documented by: Cyclobenzaprine HCl (Cyclobenzaprine Hcl) 5 mg PO BID [facility] Last Admin: 06/18/20 10:23 Dose: 5 mg Documented by: Duloxetine HCl (Cymbalta) 40 mg PO DAILY [facility] Last Admin: 06/18/20 10:23 Dose: 40 mg Documented by: Fluticasone Propionate (Flonase Nasal [place]) 1 spray NASAL BID [facility] Last Admin: 06/18/20 10:24 Dose: 1 spray Documented by: Furosemide (Lasix) 40 mg IV BID [facility] Guaifenesin (Robitussin) 20 ml PO Q4H PRN PRN PRN Reason: COUGH Sodium Chloride () 500 mls @ 15 mls/hr IV PRN PRN PRN Reason: Blood Transfusion Sodium Chloride () 250 mls @ 15 mls/hr IV .[id number] PRN PRN Reason: Saline Flush Sodium Chloride () 250 mls @ 15 mls/hr IV .[id number] PRN PRN Reason: Additional IVPB Infusion Levothyroxine Sodium (Synthroid) 50 mcg PO DAILY@0600 [facility] Last Admin: 06/18/20 06:21 Dose: 50 mcg Documented by: Memantine (Namenda) 10 mg PO BID [facility] Last Admin: 06/18/20 10:24 Dose: 10 mg Documented by: Morphine Sulfate () 2 mg IV Q3H PRN PRN PRN Reason: Pain Score 6-10/10 Last Admin: 06/16/20 15:57 Dose: 2 mg Documented by: Oxycodone HCl (Oxyir) 5 mg PO Q4H PRN PRN PRN Reason: Pain Score 4-5/10 Last Admin: 06/16/20 13:22 Dose: 5 mg Documented by: Polyethylene Glycol (Miralax) 17 gm PO DAILY [facility] Last Admin: 06/18/20 10:24 Dose: 17 gm Documented by: Prochlorperazine Edisylate (Compazine Iv) 5 mg IV Q4H PRN PRN PRN Reason: Breakthrough Nausea/Vomiting Psyllium Hydrophilic Mucilloid (Metamucil) 1 packet PO DAILY PRN PRN Reason: CONSTIPATION Senna/Docusate Sodium (Senokot-S, Lorin-Colace) 2 tablet PO BID PRN PRN PRN Reason: Constipation Sodium Chloride () 10 - 40 ml IV UD PRN PRN Reason: SALINE FLUSH Last Admin: 06/18/20 10:29 Dose: 10 ml Documented by: Addendum: Dr. Blank I personally examined the patient and reviewed the chart. I agree with the above. 84-year-old female presenting with acute hypoxic respiratory insufficiency secondary to acute on chronic diastolic and systolic CHF. She did have an echo about a year ago with an EF of 35% and global hypokinesis of left ventricle with stage II diastolic dysfunction. She is diuresing very well however this morning she had to be placed on BiPAP. She is supposed to wear CPAP at night for her central sleep apnea however she routinely takes it off in the middle the night. I did discuss this issue with her who states that he has to continually put it back on her overnight. Chest x-ray was obtained to evaluate for the hypoxia and the necessity of a BiPAP, and there is no pleural effusions or pulmonary edema on the chest x-ray today. He is okay with having her go to TCU on discharge, he does not feel the necessity of having cardiology see her at the moment. Inpatient E&M: [id number] Subs Hosp L2
[2020-06-19] VITALS (9 sets, daily range): BP systolic 111–122; BP diastolic 52–60; PULSE 66–83; RESP 12–28; TEMP 36.7–36.8; O2SAT 90–97
[2020-06-19] MEDS: Levothyroxine 50 MCG Tablet PO (06:33)
[2020-06-19 06:59] LABS: Hematocrit 32.8 % (37-47); Hemoglobin 10.1 g/dL (12.0-15.0); Mean Corp Hgb Conc 30.8 g/dL (32-36); Mean Corpuscular Hgb 28.8 pg (27.0-32.0); Mean Corpuscular Volume 93.4 fL (81-99); Mean Platelet Vol. 10.5 fl (6.2-12.0); Platelet Count 360 K/mm3 (150-450); RBC Distribution Width CV 17.3 % (11.6-14.6); RBC Distribution Width SD 57.8 fl (35.1-43.9); Red Blood Count 3.51 M/mm3 (4.2-5.4); White Blood Count 7.4 K/mm3 (4.4-11.0)
[2020-06-19 07:17] LABS: Anion Gap 4 (5-15); BUN 24 mg/dL (7-18); BUN/Creat Ratio 18.6 RATIO (10-20); Calcium,Total 8.4 mg/dL (8.5-10.1); Chloride 105 mmol/L (98-107); Creatinine, Serum 1.29 mg/dL (0.55-1.02); EST Glomerular Filtration Rate 42 mL/min (>60); Est Glom Filt Rate - Afr Amer 51 mL/min (>60); Estimated Creatinine Clearance 25.37 ml/min; Glucose 109 mg/dL (74-106); Sodium Level 140 mmol/L (136-145)
[2020-06-19] MEDS: Carvedilol 3.125 MG TABLET PO (08:27)
[2020-06-19] MEDS: Aspirin E.C. 81 MG Tablet PO (08:27)
[2020-06-19] MEDS: DULoxetine Hcl 20 MG Capsule 40 MG PO (08:27)
[2020-06-19] MEDS: Memantine Hydrochloride 10 MG Tablet PO (08:27)
[2020-06-19] MEDS: Amiodarone 200 MG Tablet PO (08:27)
[2020-06-19] MEDS: Cyanocobalamin 500 MCG Tablet 1000 MCG PO (08:27)
[2020-06-19] MEDS: Polyethylene Glycol 3350 17 GM PACKET PO (08:27)
[2020-06-19] MEDS: APIXABAN 2.5 MG TABLET PO (08:28)
[2020-06-19] MEDS: cycloBENZAPRine HCl 5 MG TABLET PO (08:28)
[2020-06-19] MEDS: Furosemide 40 MG/4 ML Vial IV (08:28)
[2020-06-19] MEDS: Fluticasone 0.05% 1 SPRAY NASAL.SRY NASAL (08:28)
--- NOTE | 2020-06-19 10:47 | PCM.EXTCARCO ---
- Diet 06/15/20 14:45 Diet: Cardiac - Heart Healthy Food consistency:: Regular Liquid Consistency:: Regular/Thin Dietary Modifications:: Fluid Restricted Diet Diet Comments: 1500cc fluid restriction - Routine Orders/Code Status Enema Type: Fleetz Enema Frequency: Daily PRN Suppository Type: Dulcolax 10mg Suppository Frequency: Daily PRN O2 Liters per Minute: 3 O2 Frequency: Continuous Keep PO Greater than or Equal to (%): 90 Routine Lab Work: - - repeat bmp 06/20 to assess potassium. Then weekly BMP, CBC. - Suggestions for Active Care Change Position every (hours): 2 Times a day to sit in chair: 3 - Therapies Physical Therapy: Eval and Treat Occupational Therapy: Eval and Treat - Problem/Diagnosis (1) Acute on chronic combined systolic and d Status: Acute Current Visit: Yes (2) Failure to thrive Status: Chronic Current Visit: Yes (3) CVA (cerebral vascular accident) Status: Chronic Comment: Expressive aphasia Current Visit: No (4) Chronic combined systolic and diastolic CHF (congestive heart failure) Status: Chronic Current Visit: No (5) Debility Status: Chronic Current Visit: No (6) Essential (primary) hypertension Status: Chronic Current Visit: No (7) History of breast cancer Status: Chronic Current Visit: No (8) Left bundle branch block (LBBB) Status: Chronic Current Visit: No (9) shelter (current) use of anticoagulants Status: Chronic Current Visit: No (10) Non-ischemic cardiomyopathy Status: Chronic Current Visit: No (11) Paroxysmal atrial fibrillation Status: Chronic Current Visit: No - Allergies/Procedures Done in Hospital Allergies/Adverse Reactions: Allergies Penicillins [PCN] Allergy (Verified 03/30/20 12:18) Rash Procedures: None - Type of Care/Length of Stay Estimated LOS: Convalescent Care Less Than 30 days Type of Care Needed: Skilled Rehab Potential: Fair Prognosis: Fair - Additional Orders/Day of Discharge Additional Orders: Continue BiPAP nightly. Patient will need home oxygen testing prior to discharge. H&P will serve as current which was dated: 06/15/20 Day of Discharge: 06/19/20 - Dietary and Speech Recommendations Dietitian Recommendations/Changes: Continue Cardiac/low cholesterol diet. Fluid restriction as indicated. Will continue to provide Ensure enlive 120 ml w/ L&D and ensure pudding w/ meals. - Follow Up Care Primary Care Physician: Ben Loomis MD [Primary Care Provider] - Please follow up with your Primary Care Physician in: 1 Week Please Follow Up With: Gary Bullard MD When: As scheduled
--- NOTE | 2020-06-19 11:27 | NURSING ---
Called report to Amanda in TCU at this time.
--- NOTE | 2020-06-19 11:35 | CASEMGMT ---
Patient is ready for discharge to TCU. Patient's is present and is aware. Plan: d/c to [facility] TCU under skilled level of care. Jimena HAIRSTON MSW
--- NOTE | 2020-06-19 12:06 | PCM.DC.SUM ---
<Donna Victoria - Last Filed: 06/19/20 12:11> Discharge Date and Diagnosis Date of Admission: 06/15/20 Date of Discharge: 06/19/20 - Primary Discharge Diagnosis Acute Problems: Active Problems (Last Reviewed 03/30/20 @ 14:[address] Gary Bullard MD) 1. Acute hypoxic respiratory insufficiency secondary to acute on chronic combined systolic and diastolic CHF/nonischemic cardiomyopathy 2. Progressive dementia with debility/failure to thrive 3. Asymptomatic bacteriuria 4. Paroxysmal atrial fibrillation 5. History of CVA with expressive aphasia 6. Hypertension 7. History of breast cancer 8. Depression 9. Hypothyroidism 10. Central sleep apnea - Secondary Discharge Diagnosis Chronic Problems: Chronic Problems (Last Reviewed 03/30/20 @ 14:[address] 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 Electronically Signed: Shivam Raymond at 12:55 EDT , Service support , Chest X-Ray 06/18/20 08:33 IMPRESSION: No change from 06/15/2020. Electronically Signed: Mynor Coelho MD at 9:50 EDT Tel , Service support , Operations: None Procedures: None Summary of Care Provided: The patient is a 84 year old F admitted 06/15/2020 due to weight gain and physical decline. 1. 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 CXR shows progressive infiltrates. Echocardiogram May 20, 2019 demonstrated an EF of 35%, stage II diastolic dysfunction. IV Lasix during admission, transition to oral Lasix 40 mg daily at discharge. Discussed with patient's , will not order repeat echo as this has been discussed with cardiology and likely repeat echo would not car changer. Continue supplement oxygen to maintain O2 at or above 90%. TCU at discharge for rehab. Patient will need assessed for home supplemental oxygen prior to discharge from TCU. Follow-up with PCP and cardiology 1 to 2 weeks following discharge. 2. 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 PT/OT. TCU at discharge. 3. Asymptomatic bacteriuria-culture growing 11-25,000 e.coli. Discontinue further antibiotics. 4. Paroxysmal atrial fibrillation-on anticoagulation with Eliquis. Continue carvedilol, amiodarone. 5. History of CVA with expressive aphasia-continue aspirin, Eliquis. 6. Hypertension- stable, continue amiodarone, carvedilol, lasix. 7. History of breast cancer-in remission. 8. Depression- continue paroxetine regimen. 9. Hypothyroidism-continue Synthroid regimen. 10. Central sleep apnea-continue home Pap therapy. General: Alert, Cooperative, Confused HEENT: Atraumatic, PERRLA, EOMI, Normocephalic Oral: Dry Mucosa Neck: Supple, No JVD, Negative Carotid Bruits Lungs: Clear to auscultation, Diminished Cardiovascular: Regular rate, No murmurs Abdomen: Bowel Sounds Present, Soft, Non Tender, Non-Distended Extremities: No clubbing, No cyanosis, No edema, Capillary Refill Less than 3 Seconds Skin: No rashes, No breakdown Musculoskeletal: No Tenderness to Palpation of Joints or Extremities, Cachexia, Muscle Wasting Neurological: Cranial nerves II-XII grossly intact, Neuro grossly intact Psych/Mental Status: Normal Affect, - - Confused Patient seen and examined prior to discharge. Physical assessment as noted above. Patient is stable for discharge with follow up recommendations as noted above. This patient was seen by CHICO Garcia under the supervision of Dr. Blank. - Physical Exam Vitals/I&O's: Vital Signs Temp Pulse Resp BP Pulse Ox 98.3 F 83 18 111/60 97 06/19/20 08:26 06/19/20 11:03 06/19/20 08:26 06/19/20 08:26 06/19/20 08:26 Oxygen Flow Rate (L/min) 3 Oxygen Delivery Method Nasal Cannula Weight: 112 lb 6.972 oz Body Mass Index (BMI) 22.0 Intake and Output for Last 24 Hours 06/17/20 06/18/20 06/19/20 23:59 23:59 23:59 Intake Total 840 / 1320 1380 / 1455 75 / 75 Output Total 350 / 750 400 / 750 350 / 350 Balance 490 / 570 980 / 705 -275 / -275 Microbiology Past 72 Hours 06/15/20 12:10 Blood Culture (Wb) - Anticubital Right Blood Culture - Preliminary No growth in 48 hours. 06/15/20 11:37 Blood Culture (Wb) - Anticubital Left Blood Culture - Preliminary No growth in 48 hours. 06/15/20 11:55 Urine Catheter - Gastelum Urine Culture - Final Escherichia coli Laboratory Results 06/19/20 06:36: WBC 7.4, RBC 3.51 L, Hgb 10.1 L, Hct 32.8 L, MCV 93.4, MCH 28.8, MCHC 30.8 L, RDW Std Deviation 57.8 H, RDW Coeff of Silvano 17.3 H, Plt Count 360, MPV 10.5 06/19/20 06:36: Sodium 140, Potassium 3.0 L, Chloride 105, Carbon Dioxide 31.0, Anion Gap 4 L, BUN 24 H, Creatinine 1.29 H, Estim Creat Clear Calc 25.37, Est GFR (MDRD) Af Amer 51 L, Est GFR (MDRD) Non-Af 42 L, BUN/Creatinine Ratio 18.6, Glucose 109 H, Calcium 8.4 L Current Medications Acetaminophen (Tylenol) 650 mg PO Q6H PRN PRN PRN Reason: Pain Score 1-10/Temp > 100.7 F Last Admin: 06/17/20 07:29 Dose: 650 mg Documented by: Al Hydroxide/Mg Hydroxide (Mylanta Ii) 30 ml PO Q6H PRN PRN PRN Reason: Gastric Burning Albuterol Sulfate (Ventolin Aerosols) 2.5 mg INHALATION Q2H PRN PRN PRN Reason: SOB/Wheezing Amiodarone HCl (Cordarone) 200 mg PO DAILY YARY Last Admin: 08/18/20 08:27 Dose: 200 mg Documented by: Apixaban (Eliquis) 2.5 mg PO BID [facility] Last Admin: 06/19/20 08:28 Dose: 2.5 mg Documented by: [facility]) [facility] Last Admin: 06/19/20 08:27 Dose: 81 mg Documented by: Carvedilol (Coreg) 3.125 mg PO BID [facility] Last Admin: 06/19/20 08:27 Dose: 3.125 mg Documented by: Cholecalciferol (Vitamin D (25mcg)) 2,000 unit PO DAILY [facility] Last Admin: 06/19/20 08:27 Dose: 2,000 unit Documented by: Cyanocobalamin (Vitamin B12) 1,000 mcg PO DAILY@0800 [facility] Last Admin: 06/19/20 08:27 Dose: 1,000 mcg Documented by: Cyclobenzaprine HCl (Cyclobenzaprine Hcl) 5 mg PO BID [facility] Last Admin: 06/19/20 08:28 Dose: 5 mg Documented by: Duloxetine HCl (Cymbalta) 40 mg PO DAILY [facility] Last Admin: 06/19/20 08:27 Dose: 40 mg Documented by: Fluticasone Propionate (Flonase Nasal [place]) 1 spray NASAL BID [facility] Last Admin: 06/19/20 08:28 Dose: 1 spray Documented by: Furosemide (Lasix) 40 mg PO DAILY [facility] Guaifenesin (Robitussin) 20 ml PO Q4H PRN PRN PRN Reason: COUGH Sodium Chloride () 500 mls @ 15 mls/hr IV PRN PRN PRN Reason: Blood Transfusion Sodium Chloride () 250 mls @ 15 mls/hr IV .[id number] PRN PRN Reason: Saline Flush Sodium Chloride () 250 mls @ 15 mls/hr IV .[id number] PRN PRN Reason: Additional IVPB Infusion Levothyroxine Sodium (Synthroid) 50 mcg PO DAILY@0600 [facility] Last Admin: 06/19/20 06:33 Dose: 50 mcg Documented by: Memantine (Namenda) 10 mg PO BID [facility] Last Admin: 06/19/20 08:27 Dose: 10 mg Documented by: Morphine Sulfate () 2 mg IV Q3H PRN PRN PRN Reason: Pain Score 6-10/10 Last Admin: 06/16/20 15:57 Dose: 2 mg Documented by: Oxycodone HCl (Oxyir) 5 mg PO Q4H PRN PRN PRN Reason: Pain Score 4-5/10 Last Admin: 06/16/20 13:22 Dose: 5 mg Documented by: Polyethylene Glycol (Miralax) 17 gm PO DAILY YARY Last Admin: 06/19/20 08:27 Dose: 17 gm Documented by: Potassium [facility] ([facility]Dur) [facility] Prochlorperazine Edisylate (Compazine Iv) 5 mg IV Q4H PRN PRN PRN Reason: Breakthrough Nausea/Vomiting Psyllium Hydrophilic Mucilloid (Metamucil) 1 packet PO DAILY PRN PRN Reason: CONSTIPATION Senna/Docusate Sodium (Senokot-S, Lorin-Colace) 2 tablet PO BID PRN PRN PRN Reason: Constipation Sodium Chloride () 10 - 40 ml IV UD PRN PRN Reason: SALINE FLUSH Last Admin: 06/18/20 10:29 Dose: 10 ml Documented by: Home Medications: Medications to take at Discharge cyclobenzaprine 5 mg tablet 5 mg PO BID tab 05/30/19 Calcium Citrate/Vitamin D3 [Calcium Cit 315-Vit D3 200 Tab] 1 tab PO TIDCM 08/19/19 Cholecalciferol (Vitamin D3) [D3-2000] 2,000 unit PO DAILY 08/19/19 Levothyroxine Sodium [Levoxyl] 50 mcg PO DAILY 08/19/19 Memantine Hydrochloride [Namenda] 10 mg PO BID 08/19/19 amiodarone 200 mg tablet 200 mg PO DAILY #90 tab 09/26/19 aspirin 81 mg tablet,delayed release 81 mg PO DAILY 09/26/19 docusate sodium 100 mg capsule 200 mg PO DAILY cap 09/26/19 carvedilol 3.125 mg tablet 3.125 mg PO BID #180 tab 12/13/19 polyethylene glycol 3350 17 gram/dose oral powder 2.5 ml PO QHS PRN PRN 12/13/19 Apixaban [Eliquis] 2.5 mg PO BID 02/17/20 Cyanocobalamin [Vitamin B12] 1,000 mcg PO DAILY@0800 02/17/20 Dymista 1 puff NASAL BID PRN PRN 02/17/20 Psyllium [Metamucil] 10 ml PO DAILY 02/17/20 duloxetine 40 mg capsule,delayed release sprinkle 40 mg PO DAILY 03/30/20 Tramadol HCl 100 mg PO BID 06/15/20 Albuterol Aerosols [Ventolin Aerosols] 2.5 mg INHALATION Q2H PRN PRN vial.neb. 06/19/20 Furosemide [Lasix] 40 mg PO DAILY tab 06/19/20 Polyethylene Glycol 3350 [Miralax] 17 gm PO DAILY packet 06/19/20 Potassium Chloride [K-Dur] 40 meq PO DAILYCM tab 06/19/20 Primary Care Physician: Ben Loomis MD [Primary Care Provider] - Please follow up with your Primary Care Physician in: 1 Week Please Follow Up With: Gary Bullard MD When: As scheduled Disposition: Detention facility Minutes spent on discharge:: 35 Patient Condition:: Stable Medical Necessity - Tobacco Use Smoking Status: Never smoker Meaningful Use Info Meaningful Use Diagnoses (Choose all that apply): CHF - CHF TENA/ARB ordered at discharge?: No Reason TENA/ARB not ordered?: Hypotension Documented LVEF (%): 35 <Amarjit Blank F - Last Filed: 06/19/20 13:02> Discharge Date and Diagnosis - Secondary Discharge Diagnosis Chronic Problems: Chronic Problems (Last Reviewed 03/30/20 @ 14:[address] Gary Bullard MD) Failure to thrive (Chronic) Chronic combined systolic and diastolic CHF (congestive heart failure) (Chronic) Non-ischemic cardiomyopathy (Chronic) Paroxysmal atrial fibrillation (Chronic) Left bundle branch block (LBBB) (Chronic) Essential (primary) hypertension (Chronic) CVA (cerebral vascular accident) (Chronic) Expressive aphasia History of breast cancer (Chronic) long-term (current) use of anticoagulants (Chronic) Debility (Chronic) Hospital Course and Treatment Summary of Care Provided: The patient is a 84 year old F [] - Physical Exam Vitals/I&O's: Vital Signs Temp Pulse Resp BP Pulse Ox 98.3 F 83 18 111/60 97 06/19/20 08:26 06/19/20 11:03 06/19/20 08:26 06/19/20 08:26 06/19/20 08:26 Oxygen Flow Rate (L/min) 3 Oxygen Delivery Method Nasal Cannula Weight: 112 lb 6.972 oz Body Mass Index (BMI) 22.0 Intake and Output for Last 24 Hours 06/17/20 06/18/20 06/19/20 23:59 23:59 23:59 Intake Total 840 / 1320 1380 / 1455 75 / 75 Output Total 350 / 750 400 / 750 350 / 350 Balance 490 / 570 980 / 705 -275 / -275 Microbiology Past 72 Hours 06/15/20 12:10 Blood Culture (Wb) - Anticubital Right Blood Culture - Preliminary No growth in 48 hours. 06/15/20 11:37 Blood Culture (Wb) - Anticubital Left Blood Culture - Preliminary No growth in 48 hours. 06/15/20 11:55 Urine Catheter - Gastelum Urine Culture - Final Escherichia coli Laboratory Results 06/19/20 06:36: WBC 7.4, RBC 3.51 L, Hgb 10.1 L, Hct 32.8 L, MCV 93.4, MCH 28.8, MCHC 30.8 L, RDW Std Deviation 57.8 H, RDW Coeff of Silvano 17.3 H, Plt Count 360, MPV 10.5 06/19/20 06:36: Sodium 140, Potassium 3.0 L, Chloride 105, Carbon Dioxide 31.0, Anion Gap 4 L, BUN 24 H, Creatinine 1.29 H, Estim Creat Clear Calc 25.37, Est GFR (MDRD) Af Amer 51 L, Est GFR (MDRD) Non-Af 42 L, BUN/Creatinine Ratio 18.6, Glucose 109 H, Calcium 8.4 L Addendum: Dr. Blank I personally examined the patient and reviewed the chart. I agree with the above. 84-year-old female presenting with acute hypoxic respiratory insufficiency secondary to acute on chronic diastolic and systolic CHF. She did have an echo about a year ago with an EF of 35% and global hypokinesis of left ventricle with stage II diastolic dysfunction. She is diuresing very well however this morning she had to be placed on BiPAP. She is supposed to wear CPAP at night for her central sleep apnea however she routinely takes it off in the middle the night. I did discuss this issue with her who states that he has to continually put it back on her overnight. Chest x-ray was obtained to evaluate for the hypoxia and the necessity of a BiPAP, and there is no pleural effusions or pulmonary edema on the chest x-ray today. He is okay with having her go to TCU on discharge, he does not feel the necessity of having cardiology see her at the moment. 06/19/2020: Doing better today, overnight she was placed on her BiPAP as she should be at home and she did well overnight. Yesterday she did have some hypoxia in the morning chest x-ray was unremarkable and she did improve with BiPAP. In discussing it with her and her she is supposed to be on CPAP but she is not consistent in wearing. She has been diuresed well on IV Lasix and will resume p.o. Lasix at 40 mg on discharge to the transitional care unit. She should also be on a fluid restriction of around 1500 cc. Inpatient E&M: 17538 Disch Hosp
== END 2020-06-19 12:28 | disposition skilled nursing facility (03) | DRG 293 ==
LOC: ED 11:43 → PCU 14:21
PROVIDERS: Nurse Practitioner Family; Admitting Provider Internal Medicine; Emergency Provider Emergency Medicine; PCP Internal Medicine; Visit Provider Family Medicine
DX: I11.0 Hypertensive heart disease with heart failure (principal); I50.43 Acute on chronic combined systolic (congestive) and diastolic (congestive) heart failure; I42.0 Dilated cardiomyopathy; R09.02 Hypoxemia; I48.0 Paroxysmal atrial fibrillation; R62.7 Adult failure to thrive; F01.50 Vascular dementia, unspecified severity, without behavioral disturbance, psychotic disturbance, mood disturbance, and anxiety; Z68.21 Body mass index [BMI] 21.0-21.9, adult; I69.320 Aphasia following cerebral infarction; G47.31 Primary central sleep apnea; E03.9 Hypothyroidism, unspecified; F32.9 Major depressive disorder, single episode, unspecified
CPT/HCPCS: 36415; 51702; 70450; 71045; 80048; 80061; 80076; 81001; 83605; 83690; 83735; 83880; 84443; 84484; 85025; 85027; 85610; 85730; 87040; 87077; 87086; 87088; 87186; 87635; 93005; 94002; 94003; 94799; 97110; 97116; 97162; 97165; 97530; 97802; 99251; 99285; A4216; G0463; J1940; U0003

== ENCOUNTER 2020-06-19 12:43 | Inpatient (IN) | payer MEDICARE, OTHER, SELFPAY ==
[2020-06-15 14:50] VITALS: BMI 22.0
[2020-06-19 12:52] VITALS: BP 105/72; PULSE 69; PULSE 74; RESP 14; RESP 16; TEMP 36.4; O2SAT 95; O2SAT 98; BMI 20.6; BMI 20.7
[2020-06-19 13:30] VITALS: O2SAT 90
--- NOTE | 2020-06-19 15:42 | NURSING ---
Attempted to contact family, no answer.
[2020-06-19] MEDS: Calcium Carb/Vitamin D 1 TABLET Tablet PO (17:09)
[2020-06-19] MEDS: Carvedilol 3.125 MG TABLET PO (17:09)
[2020-06-19] MEDS: Memantine Hydrochloride 10 MG Tablet PO (17:09)
[2020-06-19] MEDS: traMADol 50 MG Tablet 100 MG PO (17:09)
[2020-06-19] MEDS: APIXABAN 2.5 MG TABLET PO (17:09)
[2020-06-19] MEDS: cycloBENZAPRine HCl 5 MG TABLET PO (17:10)
[2020-06-19 18:15] LABS: Probe Check PASS; Specimen Processing Control PASS
--- NOTE | 2020-06-19 20:51 | PCM.HP.STD ---
Problem List (1) Encephalopathy Status: Acute (2) Weakness Status: Acute (3) Acute on chronic systolic (congestive) heart failure Status: Chronic (4) Alzheimer disease Status: Chronic (5) Atrial fibrillation Status: Chronic (6) Hypertension Status: Chronic (7) Breast cancer Status: Chronic (8) Hypothyroidism Status: Chronic (9) Hypokalemia Status: Chronic (10) Depression Status: Chronic (11) CVA (cerebral vascular accident) Status: Chronic Comment: Expressive aphasia (12) Debility Status: Acute History of Present Illness Date of Admission: 06/19/20 Chief Complaint: Here for rehabilitation, strengthening, prior to discharge home with . 06/15/2020 The patient is a 84 year old Female with below past medical history presented to [facility] with generalized illness. 06/15/2020 EKG normal sinus rhythm, left axis deviation, left bundle branch block. 06/15/2020 Chest X-ray Progressive infiltrates bilateral lungs, worse in right upper lobe. 06/15/2020 CT brain chronic involutional changes of brain. More confused x 2 weeks, worse past 2 days. More weak, unable to transfer, unable to perform ADL's. Appetite loss, lost 20 pounds in 1 year. Pulsox 95% on 4 liters per Nasal Cannula. Weight up, BNP higher than usual. Lasix given for volume overload. 06/15/2020 Admit to Hospital. Lasix 40MG IV daily for acute on chronic systolic congestive heart failure. 06/16/2020 Continue Lasix. PT/OT for halfway facility. 06/17/2020 Transition IV Lasix to PO Lasix. Oxygen to maintain Pulsox great than or equal to 90%. 06/18/2020 Chest X-ray unchanged. 06/19/2020 Admit to TCU with debility, here for rehabilitation, strengthening, prior to discharge home with . Past Medical History Past Medical History (Chronic Problems): Chronic Problems (Last Reviewed 03/30/20 @ 14:[address] Gary Bullard MD) Acute on chronic systolic (congestive) heart failure (Chronic) Alzheimer disease (Chronic) Atrial fibrillation (Chronic) Hypertension (Chronic) Breast cancer (Chronic) Hypothyroidism (Chronic) Hypokalemia (Chronic) Depression (Chronic) Failure to thrive (Chronic) Chronic combined systolic and diastolic CHF (congestive heart failure) (Chronic) Non-ischemic cardiomyopathy (Chronic) Paroxysmal atrial fibrillation (Chronic) Left bundle branch block (LBBB) (Chronic) Essential (primary) hypertension (Chronic) CVA (cerebral vascular accident) (Chronic) Expressive aphasia History of breast cancer (Chronic) 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 Gary Bullard MD) Chronic combined systolic and diastolic CHF (congestive heart failure) (Chronic) I50.42 Non-ischemic cardiomyopathy (Chronic) I42.8 Paroxysmal atrial fibrillation (Chronic) I48.0 Left bundle branch block (LBBB) (Chronic) I44.7 Essential (primary) hypertension (Chronic) I10 CVA (cerebral vascular accident) (Chronic) I63.9 Expressive aphasia History of breast cancer (Chronic) Z85.3 Debility (Acute) R53.81 Acute hypoxemic respiratory failure J96.01 Dementia F03.90 Expressive aphasia R47.01 Hypothyroidism E03.9 Breast cancer C50.919 Kidney stone N20.0 Left ureteral calculus N20.1 Vascular dementia F01.50 Secondary pulmonary arterial hypertension (Inactive) I27.21 Allergies Penicillins [PCN] Allergy (Verified 03/30/20 12:18) Rash Home Medications: Ambulatory Orders Medication Instructions Recorded cyclobenzaprine 5 mg tablet 5 mg PO BID tab 05/30/19 Calcium Citrate/Vitamin D3 1 tab PO TIDCM 08/19/19 [Calcium Cit 315-Vit D3 200 Tab] Cholecalciferol (Vitamin D3) 2,000 unit PO DAILY 08/19/19 [D3-2000] Levothyroxine Sodium [Levoxyl] 50 mcg PO DAILY 08/19/19 Memantine Hydrochloride [Namenda] 10 mg PO BID 08/19/19 amiodarone 200 mg tablet 200 mg PO DAILY #90 tab 09/26/19 aspirin 81 mg tablet,delayed 81 mg PO DAILY 09/26/19 release docusate sodium 100 mg capsule 200 mg PO DAILY cap 09/26/19 carvedilol 3.125 mg tablet 3.125 mg PO BID #180 tab 12/13/19 polyethylene glycol 3350 17 2.5 ml PO QHS PRN PRN 12/13/19 gram/dose oral powder Apixaban [Eliquis] 2.5 mg PO BID 02/17/20 Cyanocobalamin [Vitamin B12] 1,000 mcg PO DAILY@0800 02/17/20 Dymista 1 puff NASAL BID PRN PRN 02/17/20 Psyllium [Metamucil] 10 ml PO DAILY 02/17/20 duloxetine 40 mg capsule,delayed 40 mg PO DAILY 03/30/20 release sprinkle Tramadol HCl 100 mg PO BID 06/15/20 Albuterol Aerosols [Ventolin 2.5 mg INHALATION Q2H PRN PRN 06/19/20 Aerosols] vial.neb. Furosemide [Lasix] 40 mg PO DAILY 06/19/20 Polyethylene Glycol 3350 [Miralax] 17 gm PO DAILY 06/19/20 Potassium Chloride [K-Dur] 40 meq PO DAILYCM 06/19/20 Surgical History: Surgical History (Last Reviewed 03/30/20 @ 14:[address] Gray Bullard MD) H/O right mastectomy Z90.11 S/P ureteral stent placement Onset Date: 08/20/19 Z96.0 Surgical History: appendectomy, cataract, mastectomy - Right., - - Lumpectomy, tubal ligation, right breast mass biopsy. 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 Gary Bullard MD) Grandmother Diabetes History Items: No pertinent history Paternal Family History: Family History (Last Reviewed 03/30/20 @ 14:[address] Gary Bullard MD) Grandmother Diabetes History Items: No pertinent history Review of Systems Constitutional: Denies: Chills, Fever, Weight Change HEENT: Denies: Head Aches, Sinus Congestion, Sinus Drainage Cardiovascular: Denies: Chest Pain, Palpitations Respiratory: Denies: Cough, Shortness of breath at rest, Sputum production Gastrointestinal: Denies: Abdominal Pain, Nausea, Vomiting Genitourinary: Denies: Dysuria Musculoskeletal: Denies: Joint Pain, Joint Tenderness Skin: Denies: Rash, Wounds Neurological: Denies: Numbness, Tingling, Focal weakness Psychiatric: Denies: Anxiety, Depression, Homicidal Ideations, Suicidal Ideations Hematologic/ Lymphatic: Denies: Easy Bruising, Easy Bleeding VTE Information - Inpt Only VTE Present on Admission: No VTE Mechan Device Prophylaxis: Knee High CRISTIAN Hose VTE Pharm Prophylaxis ordered?: No Reason prophylaxis not ordered:: Treatment Not Indicated Patient Problems: Active and Suspected Problems (Last Reviewed 03/30/20 @ 14:[address] Gary Bullard MD) Encephalopathy (Acute) Weakness (Acute) - Physical Exam Vitals/I&O's: Vital Signs Temp Pulse Resp BP Pulse Ox 97.6 F L 69 16 105/72 90 06/19/20 12:52 06/19/20 12:52 06/19/20 12:52 06/19/20 12:52 06/19/20 13:30 Oxygen Flow Rate (L/min) 2 Oxygen Delivery Method Nasal Cannula Weight: 49.578 kg Body Mass Index (BMI) 20.6 Intake and Output for Last 24 Hours 06/17/20 06/18/20 06/19/20 23:59 23:59 23:59 Intake Total 360 / 360 Balance 360 / 360 General: Alert, Oriented x3, Cooperative HEENT: Atraumatic, PERRLA, EOMI, Normocephalic Neck: Supple, No JVD, Negative Carotid Bruits Lungs: Normal air movement, - - Bibasilar crackles. Cardiovascular: Regular rate, No murmurs Abdomen: Bowel Sounds Present, Soft, Non Tender Extremities: No edema, Capillary Refill Less than 3 Seconds Skin: No rashes, No breakdown Musculoskeletal: No Tenderness to Palpation of Joints or Extremities Neurological: Cranial nerves II-XII grossly intact Psych/Mental Status: Normal Affect, Appropriate Laboratory Results 06/19/20 16:35: COVID-19 (LYNETTE) Negative Current Medications Albuterol Sulfate (Ventolin Aerosols) 2.5 mg INHALATION Q2H PRN PRN PRN Reason: SOB/Wheezing Amiodarone HCl (Cordarone) 200 mg PO DAILY [facility] Apixaban (Eliquis) 2.5 mg PO BID [facility] Last Admin: 06/19/20 17:09 Dose: 2.5 mg Documented by: Aspirin (Ecotrin) 81 mg PO DAILY@0800 [facility] Azelastine HCl (Astelin) 1 spray NASAL BID PRN PRN Reason: Allergies Calcium/Vitamin D (Os-Raymond 500mg + D) 1 tablet PO TIDCM [facility] Last Admin: 06/19/20 17:09 Dose: 1 tablet Documented by: Carvedilol (Coreg) 3.125 mg PO BID [facility] Last Admin: 06/19/20 17:09 Dose: 3.125 mg Documented by: Cholecalciferol (Vitamin D (25mcg)) 2,000 unit PO DAILY [facility] Cyanocobalamin (Vitamin B12) 1,000 mcg PO DAILY@0800 [facility] Cyclobenzaprine HCl (Cyclobenzaprine Hcl) 5 mg PO BID [facility] Last Admin: 06/19/20 17:10 Dose: 5 mg Documented by: Docusate Sodium (Colace) 200 mg PO DAILY YARY Duloxetine HCl (Cymbalta) 40 mg PO DAILY YARY Fluticasone Propionate (Flonase Nasal [place]) 1 spray NASAL BID PRN PRN Reason: ALLERGIES Furosemide (Lasix) 40 mg PO DAILY YARY Levothyroxine Sodium (Synthroid) 50 mcg PO DAILY@0600 [facility] Lorazepam (Ativan) 0.25 mg PO Q12H PRN PRN PRN Reason: ANXIETY Memantine (Namenda) 10 mg PO BID [facility] Last Admin: 06/19/20 17:09 Dose: 10 mg Documented by: Nutritional Formula (Lactose Free) (Ensure Enlive) 120 ml PO 4X/DAY [facility] Last Admin: 06/19/20 20:31 Dose: 120 ml Documented by: Polyethylene Glycol (Miralax) 17 gm PO QHS PRN PRN PRN Reason: Constipation Polyethylene Glycol (Miralax) 17 gm PO DAILY [facility] Potassium Chloride (K-Dur) 40 [facility] Psyllium Hydrophilic Mucilloid (Metamucil) 1 packet PO DAILY [facility] Tramadol HCl (Ultram) 100 mg PO BID [facility] Last Admin: 06/19/20 17:09 Dose: 100 mg Documented by: Tuberculin PPD (Tubersol, Aplisol, Ppd) 5 tu ID X1 ONE Stop: 06/20/20 10:01 Tuberculin PPD (Tubersol, Aplisol, Ppd) 5 tu ID X1 ONE Stop: 06/27/20 10:01 Assessment/Plan All Active Problems (Last Reviewed 03/30/20 @ 14:[address] Gary Bullard MD) Encephalopathy (Acute) Weakness (Acute) Acute on chronic combined systolic and d (Acute) Debility (Acute) 84 year old female with below past medical history hospitalized for encephalopathy secondary to hypoxia from acute on chronic systolic congestive heart failure, admitted to TCU with debility, here for rehabilitation, strengthening, prior to discharge home with . Debility - PT/OT. Pain - Tramadol 100MG BID. Bowel - Miralax 17GM daily, Colace 200MG daily, Metamucil 1 packet daily. Adult immunization - Administer Prevnar 13, Pneumovax 23, Fluzone as appropriate. DVT prophylaxis - Not necessary, already on Eliquis. Shortness of breath - Albuterol 2.5MG Q2H PRN. Atrial Fibrillation - Coreg 3.125MG BID, Amiodarone 200MG daily, Eliquis 2.5MG BID. Coronary Artery Disease - Coreg 3.125MG BID, Aspirin 81MG daily. Allergic Rhinitis - Astelin 1 spray nasal BID PRN, Flonase 1 spray nasal BID PRN. Calcium deficiency - Calcium D PO TIDCM. Vitamin D deficiency - D3 2000IU daily. Vitamin B12 deficiency - B12 1000MCG daily. Muscle spasm - Flexeril 5MG BID. Depression - Duloxetine 40MG daily. Nutrition - Ensure Enlive 120ML 4x/day. Acute on chronic systolic congestive heart failure - Coreg 3.125MG BID, Lasix 40MG daily. Hypothyroidism - Levothyroxine 50MCG daily. Anxiety - Lorazepam 0.25MG Q12H PRN. Alzheimer Disease - Memantine 10MG BID. Hypokalemia - K-Dur 40MEQ daily.
--- NOTE | 2020-06-20 03:16 | CPS ---
Addendum entered by Aan Grossman 06/21/20 22:14: Original Note: Pt. not ready to sleep at this time and refusing BiPAP.
[2020-06-20 05:41] LABS: Absolute Lymphocyte Count 0.78 X10^3/uL (0.83-4.51); Absolute Neutrophil Count 4.6 X10^3/uL (2.0-7.7); Basophil# 0.06 X10^3/uL; Basophil% 0.9 % (0-1); Eosinophil# 0.68 X10^3/uL; Eosinophils% 10.4 % (0-5); Hemoglobin 10.2 g/dL (12.0-15.0); Lymphocyte # 0.78 X10^3/ul (4.0); Lymphocyte % 11.9 % (19-41); Mean Corp Hgb Conc 30.9 g/dL (32-36); Mean Corpuscular Hgb 28.7 pg (27.0-32.0); Mean Platelet Vol. 10.7 fl (6.2-12.0); Monocyte# 0.44 X10^3/uL; Monocyte% 6.7 % (0-10); NRBC Flagged by Analyzer 0.3 % (0-5); Neutrophil # 4.55 X10^3/uL (2.7-7.7); Neutrophil % 69.6 % (47-70); Platelet Count 369 K/mm3 (150-450); RBC Distribution Width CV 17.3 % (11.6-14.6); Red Blood Count 3.55 M/mm3 (4.2-5.4); White Blood Count 6.5 K/mm3 (4.4-11.0)
[2020-06-20 05:49] VITALS: BP 117/57; PULSE 68; RESP 16; TEMP 36.7; O2SAT 90
[2020-06-20] MEDS: traMADol 50 MG Tablet 100 MG PO ×2 (05:52→18:37)
[2020-06-20] MEDS: DULoxetine Hcl 20 MG Capsule 40 MG PO (05:52)
[2020-06-20] MEDS: cycloBENZAPRine HCl 5 MG TABLET PO ×2 (05:53→16:44)
[2020-06-20] MEDS: Amiodarone 200 MG Tablet PO (05:53)
[2020-06-20] MEDS: Docusate Sodium 100 MG Capsule 200 MG PO (05:53)
[2020-06-20] MEDS: Levothyroxine 50 MCG Tablet PO (05:53)
[2020-06-20] MEDS: Carvedilol 3.125 MG TABLET PO ×2 (05:53→18:37)
[2020-06-20] MEDS: Memantine Hydrochloride 10 MG Tablet PO ×2 (05:54→18:37)
[2020-06-20] MEDS: APIXABAN 2.5 MG TABLET PO ×2 (05:54→18:37)
[2020-06-20] MEDS: Furosemide 40 MG Tablet PO (05:54)
[2020-06-20 05:58] LABS: Anion Gap 5 (5-15); BUN 28 mg/dL (7-18); BUN/Creat Ratio 21.4 RATIO (10-20); Calcium,Total 8.7 mg/dL (8.5-10.1); Chloride 107 mmol/L (98-107); Creatinine, Serum 1.31 mg/dL (0.55-1.02); EST Glomerular Filtration Rate 41 mL/min (>60); Est Glom Filt Rate - Afr Amer 50 mL/min (>60); Estimated Creatinine Clearance 24.98 ml/min; Glucose 112 mg/dL (74-106); Potassium 3.8 mmol/L (3.5-5.1); Sodium Level 141 mmol/L (136-145)
[2020-06-20] MEDS: Aspirin E.C. 81 MG Tablet PO (08:11)
[2020-06-20] MEDS: Cyanocobalamin 500 MCG Tablet 1000 MCG PO (08:11)
[2020-06-20] MEDS: Calcium Carb/Vitamin D 1 TABLET Tablet PO ×3 (08:11→16:43)
--- NOTE | 2020-06-20 10:26 | PHA.CONS_ITS ---
<Sloan Salgado D - Last Filed: 06/20/20 10:26> Progress Note - Pharmacy Subjective: TCU Admission Objective: Allergies Penicillins [PCN] Allergy (Verified 03/30/20 12:18) Rash Current Medications Generic Name Dose Route Start Last Admin Trade Name Freq PRN Reason Stop Dose Admin Albuterol Sulfate 2.5 mg 06/19/20 13:00 Ventolin Aerosols INHALATION Q2H PRN PRN SOB/Wheezing Amiodarone HCl 200 mg 06/20/20 06:00 06/20/20 05:53 Cordarone PO 200 mg DAILY YARY Administration Apixaban 2.5 mg 06/19/20 18:00 06/20/20 05:54 Eliquis PO 2.5 mg BID YARY Administration Aspirin 81 mg 06/20/20 08:00 06/20/20 08:11 Ecotrin PO 81 mg DAILY@0800 YARY Administration Azelastine HCl 1 spray 06/19/20 14:37 Astelin NASAL BID PRN Allergies Calcium/Vitamin D 1 tablet 06/19/20 17:45 06/20/20 08:11 Os-Raymond 500mg + D PO 1 tablet TIDCM YARY Administration Carvedilol 3.125 mg 06/19/20 18:00 06/20/20 05:53 Coreg PO 3.125 mg BID YARY Administration Cholecalciferol 2,000 unit 06/20/20 06:00 06/20/20 05:52 Vitamin D (25mcg) PO 2,000 unit DAILY YARY Administration Cyanocobalamin 1,000 mcg 06/20/20 08:00 06/20/20 08:11 Vitamin B12 PO 1,000 mcg DAILY@0800 YARY Administration Cyclobenzaprine HCl 5 mg 06/19/20 18:00 06/20/20 05:53 Cyclobenzaprine Hcl PO 5 mg BID YARY Administration Docusate Sodium 200 mg 06/20/20 06:00 06/20/20 05:53 Colace PO 200 mg DAILY YARY Administration Duloxetine HCl 40 mg 06/20/20 06:00 06/20/20 05:52 Cymbalta PO 40 mg DAILY YARY Administration Fluticasone Propionate 1 spray 06/19/20 14:36 Flonase Nasal [place] NASAL BID PRN ALLERGIES Furosemide 40 mg 06/20/20 06:00 06/20/20 05:54 Lasix PO 40 mg DAILY YARY Administration Levothyroxine Sodium 50 mcg 06/20/20 06:00 06/20/20 05:53 Synthroid PO 50 mcg DAILY@0600 YARY Administration Lorazepam 0.25 mg 06/19/20 16:47 Ativan PO Q12H PRN PRN ANXIETY Memantine 10 mg 06/19/20 18:00 06/20/20 05:54 Namenda PO 10 mg BID YARY Administration Nutritional Formula (Lactose Free) 120 ml 06/19/20 17:00 06/20/20 05:52 Ensure Enlive PO 120 ml 4X/DAY YARY Administration Polyethylene Glycol 17 gm 06/19/20 13:37 Miralax PO QHS PRN PRN Constipation Polyethylene Glycol 17 gm 06/20/20 06:00 06/20/20 06:03 Miralax PO Not Given DAILY YARY Potassium Chloride 40 meq 06/20/20 08:00 06/20/20 08:12 K-Dur PO 40 meq DAILYCM YARY Administration Psyllium Hydrophilic Mucilloid 1 packet 06/20/20 06:00 06/20/20 06:03 Metamucil PO Not Given DAILY YARY Tramadol HCl 100 mg 06/19/20 18:00 06/20/20 05:52 Ultram PO 100 mg BID YARY Administration Tuberculin PPD 5 tu 06/27/20 10:00 Tubersol, Aplisol, Ppd ID 06/27/20 10:01 X1 ONE Problem List (Last Reviewed 03/30/20 @ 14:[address] Gary Bullard MD) Encephalopathy (Acute) Weakness (Acute) Acute on chronic systolic (congestive) heart failure (Chronic) Alzheimer disease (Chronic) Atrial fibrillation (Chronic) Hypertension (Chronic) Breast cancer (Chronic) Hypothyroidism (Chronic) Hypokalemia (Chronic) Depression (Chronic) Vital Signs Temp Pulse Resp BP Pulse Ox 98.0 F 68 16 117/57 L 90 06/20/20 05:49 06/20/20 05:49 06/20/20 05:49 06/20/20 05:49 06/20/20 05:49 Oxygen Flow Rate (L/min) 2 Oxygen Delivery Method Nasal Cannula Weight: 49.578 kg Body Mass Index (BMI) 20.6 Sodium 141 mmol/L (136-145) 06/20/20 05:20 Potassium 3.8 mmol/L (3.5-5.1) 06/20/20 05:20 Chloride 107 mmol/L (98-107) 06/20/20 05:20 Carbon Dioxide 29.0 mmol/L (21.0-32.0) 06/20/20 05:20 Anion Gap 5 (5-15) 06/20/20 05:20 BUN 28 mg/dL (7-18) H 06/20/20 05:20 Creatinine 1.31 mg/dL (0.55-1.02) H 06/20/20 05:20 Est GFR (MDRD) Af Amer 50 mL/min (>60) L 06/20/20 05:20 Est GFR (MDRD) Non-Af 41 mL/min (>60) L 06/20/20 05:20 BUN/Creatinine Ratio 21.4 RATIO (10-20) H 06/20/20 05:20 Glucose 112 mg/dL (74-106) H 06/20/20 05:20 Assessment/Plan: 1) Pain Tramadol scheduled at max dose for renal function, cyclobenzaprine. Continue to monitor daily pain scores. 2) AFib/HF/CAD Amiodarone, apixaban, furosemide/KCL, carvedilol, ASA. Continue to monitor BP/HR, renal function, electrolytes, for bleeding/clot. 3) Hypothyroidism Levothyroxine. Continue to monitor for s/s hyper/hypothyroidism. 4) Alzheimer Disease Memantine. Continue to monitor clinically. 5) Nutrition D, B12. Continue to monitor Psychotropic Medications: 6) Anxiety/Depression Duloxetine, lorazepam prn. Continue to monitor for anxiety. Unnecessary Medications: None Bowel Regimen: 7) Psyllium, docusate, PEG scheduled and prn. Continue to monitor prn medication use, for constipation/diarrhea. Date of Note:: 06/20/20 - Provider Comments Provider responsibility: Provider responsible to enter orders to implement recommendations <Karl Cortes Chi - Last Filed: 06/20/20 12:23> Progress Note - Pharmacy Subjective: [] Objective: Allergies Penicillins [PCN] Allergy (Verified 03/30/20 12:18) Rash Current Medications Generic Name Dose Route Start Last Admin Trade Name Freq PRN Reason Stop Dose Admin Albuterol Sulfate 2.5 mg 06/19/20 13:00 Ventolin Aerosols INHALATION Q2H PRN PRN SOB/Wheezing Amiodarone HCl 200 mg 06/20/20 06:00 06/20/20 05:53 Cordarone PO 200 mg DAILY YARY Administration Apixaban 2.5 mg 06/19/20 18:00 06/20/20 05:54 Eliquis PO 2.5 mg BID YARY Administration Aspirin 81 mg 06/20/20 08:00 06/20/20 08:11 Ecotrin PO 81 mg DAILY@0800 YARY Administration Azelastine HCl 1 spray 06/19/20 14:37 Astelin NASAL BID PRN Allergies Calcium/Vitamin D 1 tablet 06/19/20 17:45 06/20/20 12:21 Os-Raymond 500mg + D PO 1 tablet TIDCM [facility] Administration Carvedilol 3.125 mg 06/19/20 18:00 06/20/20 05:53 Coreg PO 3.125 mg BID [facility] Administration Cholecalciferol 2,000 unit 06/20/20 06:00 06/20/20 05:52 Vitamin D (25mcg) PO 2,000 unit DAILY [facility] Administration Cyanocobalamin 1,000 mcg 06/20/20 08:00 06/20/20 08:11 Vitamin B12 PO 1,000 mcg DAILY@0800 YARY Administration Cyclobenzaprine HCl 5 mg 06/19/20 18:00 06/20/20 05:53 Cyclobenzaprine Hcl PO 5 mg BID YARY Administration Docusate Sodium 200 mg 06/20/20 06:00 06/20/20 05:53 Colace PO 200 mg DAILY YARY Administration Duloxetine HCl 40 mg 06/20/20 06:00 06/20/20 05:52 Cymbalta PO 40 mg DAILY [facility] Administration Fluticasone Propionate 1 spray 06/19/20 14:36 Flonase Nasal [place] NASAL BID PRN ALLERGIES Furosemide 40 mg 06/20/20 06:00 06/20/20 05:54 Lasix PO 40 mg DAILY [facility] Administration Levothyroxine Sodium 50 mcg 06/20/20 06:00 06/20/20 05:53 Synthroid PO 50 mcg DAILY@0600 [facility] Administration Lorazepam 0.25 mg 06/19/20 16:47 Ativan PO Q12H PRN PRN ANXIETY Memantine 10 mg 06/19/20 18:00 08/19/20 05:54 Namenda PO 10 mg BID YARY Administration Nutritional Formula (Lactose Free) 120 ml 06/19/20 17:00 06/20/20 12:20 Ensure Enlive PO 120 ml 4X/DAY YARY Administration Polyethylene Glycol 17 gm 06/19/20 13:37 Miralax PO QHS PRN PRN Constipation Polyethylene Glycol 17 gm 06/20/20 06:00 06/20/20 06:03 Miralax PO Not Given DAILY YARY Potassium Chloride 40 meq 06/20/20 08:00 06/20/20 08:12 K-Dur PO 40 meq DAILYCM YARY Administration Psyllium Hydrophilic Mucilloid 1 packet 06/20/20 06:00 06/20/20 06:03 Metamucil PO Not Given DAILY YARY Tramadol HCl 100 mg 06/19/20 18:00 06/20/20 05:52 Ultram PO 100 mg BID YARY Administration Tuberculin PPD 5 tu 06/27/20 10:00 Tubersol, Aplisol, Ppd ID 06/27/20 10:01 X1 ONE Problem List (Last Reviewed 03/30/20 @ 14:[address] Gary Bullard MD) Encephalopathy (Acute) Weakness (Acute) Acute on chronic systolic (congestive) heart failure (Chronic) Alzheimer disease (Chronic) Atrial fibrillation (Chronic) Hypertension (Chronic) Breast cancer (Chronic) Hypothyroidism (Chronic) Hypokalemia (Chronic) Depression (Chronic) Vital Signs Temp Pulse Resp BP Pulse Ox 98.0 F 68 16 117/57 L 90 06/20/20 05:49 06/20/20 05:49 06/20/20 05:49 06/20/20 05:49 06/20/20 05:49 Oxygen Flow Rate (L/min) 2 Oxygen Delivery Method Nasal Cannula Weight: 49.578 kg Body Mass Index (BMI) 20.6 Sodium 141 mmol/L (136-145) 06/20/20 05:20 Potassium 3.8 mmol/L (3.5-5.1) 06/20/20 05:20 Chloride 107 mmol/L (98-107) 06/20/20 05:20 Carbon Dioxide 29.0 mmol/L (21.0-32.0) 06/20/20 05:20 Anion Gap 5 (5-15) 06/20/20 05:20 BUN 28 mg/dL (7-18) H 06/20/20 05:20 Creatinine 1.31 mg/dL (0.55-1.02) H 06/20/20 05:20 Est GFR (MDRD) Af Amer 50 mL/min (>60) L 06/20/20 05:20 Est GFR (MDRD) Non-Af 41 mL/min (>60) L 06/20/20 05:20 BUN/Creatinine Ratio 21.4 RATIO (10-20) H 06/20/20 05:20 Glucose 112 mg/dL (74-106) H 06/20/20 05:20 Assessment/Plan: Psychotropic Medications: Unnecessary Medications: Bowel Regimen: - Provider Comments Provider responsibility: Provider responsible to enter orders to implement recommendations Provider Comments to Recommendations by Pharmacy: Agree
[2020-06-20] MEDS: Tuberculin,Purif.prot.deriv. 50 TU/ML Vial 5 ML ID (12:22)
--- NOTE | 2020-06-20 13:21 | MDS.RN ---
Attempted to contact spouse-Dragan to schedule plan of care meeting, no answer.
[2020-06-20 14:44] VITALS: PULSE 67; RESP 18; O2SAT 98
[2020-06-20 14:53] VITALS: BP 94/60; PULSE 67; RESP 18; TEMP 36.3; O2SAT 98
[2020-06-20 22:26] VITALS: PULSE 72; RESP 12; RESP 19; O2SAT 95
[2020-06-21 01:20] VITALS: PULSE 65; RESP 12; RESP 18; O2SAT 96
[2020-06-21 04:42] VITALS: PULSE 62; RESP 12; RESP 13; O2SAT 96
[2020-06-21] MEDS: Furosemide 40 MG Tablet PO (06:04)
[2020-06-21] MEDS: Levothyroxine 50 MCG Tablet PO (06:05)
[2020-06-21] MEDS: Memantine Hydrochloride 10 MG Tablet PO ×2 (06:05→16:44)
[2020-06-21] MEDS: Docusate Sodium 100 MG Capsule 200 MG PO (06:05)
[2020-06-21] MEDS: APIXABAN 2.5 MG TABLET PO ×2 (06:05→16:44)
[2020-06-21] MEDS: Carvedilol 3.125 MG TABLET PO ×2 (06:05→16:45)
[2020-06-21] MEDS: DULoxetine Hcl 20 MG Capsule 40 MG PO (06:05)
[2020-06-21] MEDS: cycloBENZAPRine HCl 5 MG TABLET PO ×2 (06:05→16:44)
[2020-06-21] MEDS: Polyethylene Glycol 3350 17 GM PACKET PO (06:05)
[2020-06-21] MEDS: Amiodarone 200 MG Tablet PO (06:05)
[2020-06-21] MEDS: traMADol 50 MG Tablet 100 MG PO ×2 (06:08→16:46)
[2020-06-21 06:42] VITALS: BP 110/62; PULSE 70; RESP 18; TEMP 36.6; O2SAT 96
[2020-06-21] MEDS: Calcium Carb/Vitamin D 1 TABLET Tablet PO ×3 (08:06→16:45)
[2020-06-21] MEDS: Cyanocobalamin 500 MCG Tablet 1000 MCG PO (08:07)
[2020-06-21] MEDS: Aspirin E.C. 81 MG Tablet PO (08:07)
[2020-06-21 09:19] VITALS: O2SAT 95
[2020-06-21 14:36] VITALS: BP 100/52; PULSE 63; RESP 16; TEMP 36.9; O2SAT 16
[2020-06-22] MEDS: Docusate Sodium 100 MG Capsule 200 MG PO (05:42)
[2020-06-22] MEDS: Polyethylene Glycol 3350 17 GM PACKET PO (05:42)
[2020-06-22] MEDS: Carvedilol 3.125 MG TABLET PO ×2 (05:42→17:40)
[2020-06-22] MEDS: cycloBENZAPRine HCl 5 MG TABLET PO ×2 (05:42→17:40)
[2020-06-22] MEDS: APIXABAN 2.5 MG TABLET PO ×2 (05:42→17:40)
[2020-06-22] MEDS: Memantine Hydrochloride 10 MG Tablet PO ×2 (05:42→17:40)
[2020-06-22] MEDS: Levothyroxine 50 MCG Tablet PO (05:42)
[2020-06-22] MEDS: Furosemide 40 MG Tablet PO (05:42)
[2020-06-22] MEDS: DULoxetine Hcl 20 MG Capsule 40 MG PO (05:42)
[2020-06-22] MEDS: Amiodarone 200 MG Tablet PO (05:42)
[2020-06-22] MEDS: traMADol 50 MG Tablet 100 MG PO ×2 (05:47→17:40)
[2020-06-22 06:34] VITALS: BP 108/60; PULSE 70; RESP 18; TEMP 36.2; O2SAT 93
[2020-06-22 06:49] VITALS: O2SAT 93
[2020-06-22] MEDS: Cyanocobalamin 500 MCG Tablet 1000 MCG PO (08:52)
[2020-06-22] MEDS: Psyllium 1 PACKET PO (08:52)
[2020-06-22] MEDS: Calcium Carb/Vitamin D 1 TABLET Tablet PO ×3 (08:53→17:40)
[2020-06-22] MEDS: Aspirin E.C. 81 MG Tablet PO (08:53)
[2020-06-22 12:31] VITALS: PULSE 64; RESP 18; O2SAT 93
--- NOTE | 2020-06-22 13:25 | CASEMGMT ---
Social Work Spoke with patient's . wanted to discuss LTC options. Explained SNFs, private pay and Medicaid - pt would be private pay. would like to be put on [facility] LTC waitlist and inquired about other facilities. Emailed list of SNFs and educated to use Medicare.gov for further research. appreciative and will contact with other options. Will continue to follow. Referral made to [facility]. CYNTHIA SparksW
[2020-06-22 17:47] VITALS: BP 102/56; PULSE 64; RESP 16; TEMP 36.9; O2SAT 93
[2020-06-22 23:26] VITALS: PULSE 63; RESP 12; RESP 25; O2SAT 97
[2020-06-23 02:13] VITALS: PULSE 60; RESP 12; RESP 21; O2SAT 97
[2020-06-23 05:30] VITALS: PULSE 58; RESP 12; RESP 17; O2SAT 96
[2020-06-23] MEDS: traMADol 50 MG Tablet 100 MG PO ×2 (06:55→17:45)
[2020-06-23 06:56] VITALS: BP 143/64; PULSE 61; RESP 16; TEMP 36.5; O2SAT 90
[2020-06-23] MEDS: Docusate Sodium 100 MG Capsule 200 MG PO (06:58)
[2020-06-23] MEDS: Levothyroxine 50 MCG Tablet PO (06:58)
[2020-06-23] MEDS: Amiodarone 200 MG Tablet PO (06:58)
[2020-06-23] MEDS: Carvedilol 3.125 MG TABLET PO ×2 (06:58→17:44)
[2020-06-23] MEDS: APIXABAN 2.5 MG TABLET PO ×2 (06:58→17:45)
[2020-06-23] MEDS: Memantine Hydrochloride 10 MG Tablet PO ×2 (06:58→17:44)
[2020-06-23] MEDS: cycloBENZAPRine HCl 5 MG TABLET PO ×2 (06:58→17:44)
[2020-06-23] MEDS: DULoxetine Hcl 20 MG Capsule 40 MG PO (06:59)
[2020-06-23] MEDS: Furosemide 40 MG Tablet PO (06:59)
[2020-06-23] MEDS: Polyethylene Glycol 3350 17 GM PACKET PO (09:17)
[2020-06-23] MEDS: Cyanocobalamin 500 MCG Tablet 1000 MCG PO (09:17)
[2020-06-23] MEDS: Calcium Carb/Vitamin D 1 TABLET Tablet PO ×3 (09:18→16:01)
[2020-06-23] MEDS: Aspirin E.C. 81 MG Tablet PO (09:18)
[2020-06-23] MEDS: Psyllium 1 PACKET PO (09:19)
[2020-06-23 12:27] VITALS: PULSE 68; RESP 18; O2SAT 95
[2020-06-23 17:29] VITALS: BP 98/60; PULSE 68; RESP 18; TEMP 36.8; O2SAT 95
--- NOTE | 2020-06-23 18:49 | NURSING ---
Soap suds enema administered, per order.
[2020-06-24 00:45] VITALS: PULSE 58; RESP 12; RESP 22; O2SAT 98
[2020-06-24 03:45] VITALS: PULSE 12; RESP 12; RESP 59; O2SAT 96
[2020-06-24 06:42] VITALS: BP 104/59; PULSE 60; RESP 18; O2SAT 98
[2020-06-24] MEDS: Polyethylene Glycol 3350 17 GM PACKET PO (07:09)
[2020-06-24] MEDS: cycloBENZAPRine HCl 5 MG TABLET PO ×2 (07:09→17:45)
[2020-06-24] MEDS: Memantine Hydrochloride 10 MG Tablet PO ×2 (07:09→17:45)
[2020-06-24] MEDS: Levothyroxine 50 MCG Tablet PO (07:09)
[2020-06-24] MEDS: Furosemide 40 MG Tablet PO (07:09)
[2020-06-24] MEDS: APIXABAN 2.5 MG TABLET PO ×2 (07:10→17:44)
[2020-06-24] MEDS: Carvedilol 3.125 MG TABLET PO ×2 (07:10→17:45)
[2020-06-24] MEDS: DULoxetine Hcl 20 MG Capsule 40 MG PO (07:20)
[2020-06-24] MEDS: Docusate Sodium 100 MG Capsule 200 MG PO (07:20)
[2020-06-24] MEDS: Amiodarone 200 MG Tablet PO (07:20)
[2020-06-24] MEDS: Calcium Carb/Vitamin D 1 TABLET Tablet PO ×3 (08:36→17:46)
[2020-06-24] MEDS: Cyanocobalamin 500 MCG Tablet 1000 MCG PO (08:36)
[2020-06-24] MEDS: Aspirin E.C. 81 MG Tablet PO (08:36)
[2020-06-24] MEDS: Psyllium 1 PACKET PO (08:37)
[2020-06-24] MEDS: LORazepam 0.5 MG Tablet 0.25 MG PO (09:54)
[2020-06-24 13:00] VITALS: BP 92/54; PULSE 61; RESP 18; TEMP 36.9; O2SAT 93
--- NOTE | 2020-06-24 13:39 | NURSING ---
Biblical Languages Professor Note: Facetime call placed with resident to daughterIsela. Res in chair attempting to use in room phone, but unable to understand how to call. Res able to recognize daughter, however, disoriented to time, place. Res verbalizing, but nonsensical. Continued to attempt to make calls on room phone during facetime call. Reoriented to speak with daughter on facetime. Res wishing to make phone call, however, unable to verbalize to whom. Nursing to assist resident with call to son at later time. Daughter thankful for call.
[2020-06-24] MEDS: traMADol 50 MG Tablet 100 MG PO (17:43)
[2020-06-25 00:40] VITALS: PULSE 62; RESP 12; RESP 16; O2SAT 98
[2020-06-25 03:45] VITALS: PULSE 61; RESP 12; RESP 18; O2SAT 97
[2020-06-25 06:50] VITALS: BP 104/40; PULSE 57; RESP 18; TEMP 36.5; O2SAT 96
[2020-06-25] MEDS: APIXABAN 2.5 MG TABLET PO ×2 (06:53→18:22)
[2020-06-25] MEDS: cycloBENZAPRine HCl 5 MG TABLET PO ×2 (06:53→18:22)
[2020-06-25] MEDS: Levothyroxine 50 MCG Tablet PO (06:53)
[2020-06-25] MEDS: DULoxetine Hcl 20 MG Capsule 40 MG PO (06:53)
[2020-06-25] MEDS: Amiodarone 200 MG Tablet PO (06:53)
[2020-06-25] MEDS: Docusate Sodium 100 MG Capsule 200 MG PO (06:53)
[2020-06-25] MEDS: traMADol 50 MG Tablet 100 MG PO ×2 (06:53→18:22)
[2020-06-25] MEDS: Memantine Hydrochloride 10 MG Tablet PO ×2 (06:53→18:22)
[2020-06-25] MEDS: Polyethylene Glycol 3350 17 GM PACKET PO (06:53)
[2020-06-25] MEDS: Furosemide 40 MG Tablet PO (06:53)
[2020-06-25] MEDS: Carvedilol 3.125 MG TABLET PO ×2 (06:53→18:22)
[2020-06-25] MEDS: Aspirin E.C. 81 MG Tablet PO (08:57)
[2020-06-25] MEDS: Calcium Carb/Vitamin D 1 TABLET Tablet PO ×3 (08:57→18:22)
[2020-06-25] MEDS: Psyllium 1 PACKET PO (08:58)
[2020-06-25] MEDS: Cyanocobalamin 500 MCG Tablet 1000 MCG PO (08:58)
[2020-06-25 14:12] VITALS: BP 116/47; PULSE 68; RESP 18; TEMP 36.1; O2SAT 99
[2020-06-25] MEDS: Mirtazapine 15 MG Tablet 7.5 MG PO (20:51)
[2020-06-26 02:15] VITALS: PULSE 60; RESP 12; RESP 14; O2SAT 97
[2020-06-26 03:29] VITALS: BP 95/57; PULSE 61; RESP 18; TEMP 36.7; O2SAT 99
[2020-06-26 05:20] VITALS: PULSE 62; RESP 12; RESP 20; O2SAT 96
[2020-06-26] MEDS: traMADol 50 MG Tablet 100 MG PO ×2 (06:45→17:20)
[2020-06-26] MEDS: Polyethylene Glycol 3350 17 GM PACKET PO (06:47)
[2020-06-26] MEDS: Furosemide 40 MG Tablet PO (06:50)
[2020-06-26] MEDS: Memantine Hydrochloride 10 MG Tablet PO ×2 (06:50→17:16)
[2020-06-26] MEDS: DULoxetine Hcl 20 MG Capsule 40 MG PO (06:50)
[2020-06-26] MEDS: Carvedilol 3.125 MG TABLET PO ×2 (06:50→17:16)
[2020-06-26] MEDS: APIXABAN 2.5 MG TABLET PO ×2 (06:51→17:16)
[2020-06-26] MEDS: Levothyroxine 50 MCG Tablet PO (06:51)
[2020-06-26] MEDS: cycloBENZAPRine HCl 5 MG TABLET PO ×2 (06:51→17:16)
[2020-06-26] MEDS: Amiodarone 200 MG Tablet PO (06:51)
[2020-06-26 08:00] VITALS: O2SAT 94
[2020-06-26] MEDS: Glycerin/Hypromellose/PEG400 15 ml Bottle 2 DRP EACH EYE ×2 (09:06→17:16)
[2020-06-26] MEDS: Docusate Sodium 100 MG Capsule 200 MG PO (09:08)
[2020-06-26] MEDS: Aspirin E.C. 81 MG Tablet PO (09:08)
[2020-06-26] MEDS: Calcium Carb/Vitamin D 1 TABLET Tablet PO ×3 (09:08→17:16)
[2020-06-26] MEDS: Cyanocobalamin 500 MCG Tablet 1000 MCG PO (09:09)
[2020-06-26] MEDS: Psyllium 1 PACKET PO (09:09)
--- NOTE | 2020-06-26 10:52 | NURSING ---
Addendum entered by Fatou Linares 06/26/20 11:38: spoke to , will bring in clothing. transferred call to clinical social work therapist per his request Original Note: attempted to call [facility] no answer on [employer] phone. will try later.
--- NOTE | 2020-06-26 13:14 | CASEMGMT ---
Social Work Patient's contacted . expressed concern with pt returning home as evidenced by phone calls to pt, she is not doing well. Explained IDT agreed. Pt is progressing in her Dementia, along with other medical conditions. IDT discussed the benefit of her remaining in TCU. agreed and understands she may not get better. Discussed LTC and memory care units. requested referrals to [facility] and [facility]. expressed his children feel he should take pt home, but he does not to live like that and feels she will get better care in a SNF. Provided supportive listening. does understand a SNF would be private pay. Also discussed hospice services. Explained pt does qualify for hospice at the SNF. agreeable to referral. Will have care plan meeting the following day. Referrals made to hospice and SNFs. Nayeli Reveles, CYNTHIA PROJECT MANAGEMENT ANALYST
[2020-06-26 13:35] VITALS: BP 102/53; PULSE 66; RESP 16; TEMP 36.6; O2SAT 97
[2020-06-26] MEDS: Mirtazapine 15 MG Tablet 7.5 MG PO (21:45)
--- NOTE | 2020-06-26 21:45 | NURSING ---
In to give patient hs medications. HS medications given, offered to put patient bipap back on her. Patient agreeable. Bipap placed on patient.
--- NOTE | 2020-06-26 21:53 | CPS ---
pt took bipap mask off-placed on 3l/m via [facility]-nurse aware
[2020-06-27 05:48] LABS: Absolute Lymphocyte Count 0.85 X10^3/uL (0.83-4.51); Absolute Neutrophil Count 2.8 X10^3/uL (2.0-7.7); Basophil# 0.08 X10^3/uL; Basophil% 1.6 % (0-1); Eosinophils% 10.3 % (0-5); Hematocrit 30.5 % (37-47); Hemoglobin 9.4 g/dL (12.0-15.0); Lymphocyte # 0.85 X10^3/ul (4.0); Lymphocyte % 17.5 % (19-41); Mean Corp Hgb Conc 30.8 g/dL (32-36); Mean Corpuscular Hgb 28.7 pg (27.0-32.0); Mean Platelet Vol. 10.5 fl (6.2-12.0); Monocyte# 0.65 X10^3/uL; Monocyte% 13.3 % (0-10); NRBC Flagged by Analyzer 0 % (0-5); Neutrophil # 2.76 X10^3/uL (2.7-7.7); Neutrophil % 56.7 % (47-70); Platelet Count 397 K/mm3 (150-450); RBC Distribution Width CV 16.4 % (11.6-14.6); RBC Distribution Width SD 55.8 fl (35.1-43.9); Red Blood Count 3.28 M/mm3 (4.2-5.4); White Blood Count 4.9 K/mm3 (4.4-11.0)
[2020-06-27 06:21] VITALS: BP 131/83; PULSE 69; RESP 18; TEMP 36.2; O2SAT 98
[2020-06-27] MEDS: traMADol 50 MG Tablet 100 MG PO ×2 (06:24→17:52)
[2020-06-27] MEDS: Polyethylene Glycol 3350 17 GM PACKET PO (06:25)
[2020-06-27] MEDS: Psyllium 1 PACKET PO (06:25)
[2020-06-27] MEDS: Cyanocobalamin 500 MCG Tablet 1000 MCG PO (06:26)
[2020-06-27 06:27] LABS: Anion Gap 4 (5-15); BUN 23 mg/dL (7-18); BUN/Creat Ratio 14.9 RATIO (10-20); Chloride 104 mmol/L (98-107); Creatinine, Serum 1.54 mg/dL (0.55-1.02); EST Glomerular Filtration Rate 34 mL/min (>60); Est Glom Filt Rate - Afr Amer 41 mL/min (>60); Estimated Creatinine Clearance 21.25 ml/min; Glucose 86 mg/dL (74-106); Sodium Level 139 mmol/L (136-145)
[2020-06-27] MEDS: Memantine Hydrochloride 10 MG Tablet PO ×2 (06:27→17:53)
[2020-06-27] MEDS: DULoxetine Hcl 20 MG Capsule 40 MG PO (06:27)
[2020-06-27] MEDS: Calcium Carb/Vitamin D 1 TABLET Tablet PO ×3 (06:27→16:01)
[2020-06-27] MEDS: Docusate Sodium 100 MG Capsule 200 MG PO (06:29)
[2020-06-27] MEDS: Levothyroxine 50 MCG Tablet PO (06:29)
[2020-06-27] MEDS: cycloBENZAPRine HCl 5 MG TABLET PO ×2 (06:29→17:53)
[2020-06-27] MEDS: APIXABAN 2.5 MG TABLET PO ×2 (06:29→17:53)
[2020-06-27] MEDS: Furosemide 40 MG Tablet PO (06:30)
[2020-06-27] MEDS: Amiodarone 200 MG Tablet PO (06:30)
[2020-06-27] MEDS: Carvedilol 3.125 MG TABLET PO ×2 (06:30→17:53)
[2020-06-27] MEDS: Aspirin E.C. 81 MG Tablet PO (06:30)
[2020-06-27 07:00] VITALS: O2SAT 95
[2020-06-27] MEDS: Tuberculin,Purif.prot.deriv. 50 TU/ML Vial 5 ML ID (12:20)
[2020-06-27 12:43] VITALS: PULSE 60; RESP 18; O2SAT 90
[2020-06-27 12:54] VITALS: BP 102/68; PULSE 60; RESP 18; TEMP 36.6; O2SAT 90
--- NOTE | 2020-06-27 13:54 | CASEMGMT ---
Social Work IDT met with patient and via conference call for care plan meeting. Discussed patient's progress in therapy. Pt is min to modA for bed mobility, sit to stands and transfers w/FWW, ambulating 5-30 ft with FWW at Jose. Pt's assistance level varies, and has difficulty with obstacle navigation. Pt also struggles to keep eyes open during sessions. Pt is Jose for toilet transfers, max for toileting tasks, min for UE, mod/max for LE. Pt is very confused, and requires max cues for redirection and task sequencing. Pt is on a [facility] soft/thin diet, and needs encouragement to eat at meals. Pt shows no overt signs/symptoms of aspiration. ST working with pt on orientation and cognition. Pt has shown a significant decline in her cognition, orientation and concentration. It is difficult for pt to hold conversation or respond appropriately. Pt is on a no added salt diet, receiving ensure, magic cup and on a fluid restriction. Pt is on Remeron to increase appetite. Pt is out of isolation 07/03 . Explained Medicare benefit. did not want to discuss hospice/LTC in front of patient. Contacted after meeting. Spoke with at length. feeling a lot of guilt of making the right decision and going against his children's wishes of taking pt home. He reported to his father having aides in the home to assist his mother and it was not a good situation so he does not want to that for pt. feels like if he doesn't have her continue with treatment he is signing a wish. Provided ongoing emotional and verbal support, active listening. Explained further about LTP, hospice services, pt's overall condition at this time. stated he and pt had conversations prior about not having the other suffer and to provide comfort measures and quality of life. Explained no decision is permanent. He could change his mind if he felt the pt would benefit from the alternative. Offered for to Face Time pt to visually see pt to possibly assist in making a decision - declined and said he has to physically be in the room to get a feel for what is happening to her. chose for pt to go to [facility] and has a meeting with hospice the following day. Assisted on questions to ask each alliance party on concerns he has. Offered continued assistance and support. expressed much gratitude and appreciation for SW conversation and support. Notified all SNFs on [facility]. [facility] to follow up with . No DC date set at this time. Will continue to follow. Nayeli Reveles, PHARMACY BENEFIT MANAGER RESEARCH COMPLIANCE SPECIALIST
[2020-06-27] MEDS: Mirtazapine 15 MG Tablet 7.5 MG PO (20:01)
[2020-06-28 02:53] VITALS: PULSE 65; RESP 12; RESP 20; O2SAT 96
[2020-06-28] MEDS: DULoxetine Hcl 20 MG Capsule 40 MG PO (05:56)
[2020-06-28] MEDS: Polyethylene Glycol 3350 17 GM PACKET PO (05:56)
[2020-06-28] MEDS: cycloBENZAPRine HCl 5 MG TABLET PO ×2 (05:56→16:26)
[2020-06-28] MEDS: Carvedilol 3.125 MG TABLET PO ×2 (05:56→16:26)
[2020-06-28] MEDS: APIXABAN 2.5 MG TABLET PO ×2 (05:56→16:27)
[2020-06-28] MEDS: Memantine Hydrochloride 10 MG Tablet PO ×2 (05:56→16:27)
[2020-06-28] MEDS: Furosemide 40 MG Tablet PO (05:56)
[2020-06-28] MEDS: Docusate Sodium 100 MG Capsule 200 MG PO (05:56)
[2020-06-28] MEDS: Amiodarone 200 MG Tablet PO (05:56)
[2020-06-28] MEDS: Levothyroxine 50 MCG Tablet PO (05:57)
[2020-06-28] MEDS: traMADol 50 MG Tablet 100 MG PO ×2 (06:00→16:29)
[2020-06-28 06:10] VITALS: BP 105/55; PULSE 64; RESP 16; TEMP 36.6; O2SAT 97
[2020-06-28 08:11] VITALS: O2SAT 96
[2020-06-28] MEDS: Calcium Carb/Vitamin D 1 TABLET Tablet PO ×3 (09:11→16:25)
[2020-06-28] MEDS: Aspirin E.C. 81 MG Tablet PO (09:12)
[2020-06-28] MEDS: Cyanocobalamin 500 MCG Tablet 1000 MCG PO (09:12)
[2020-06-28 10:00] VITALS: PULSE 80; RESP 18
[2020-06-28 15:31] VITALS: BP 103/38; PULSE 56; RESP 20; TEMP 36.4; O2SAT 96
--- NOTE | 2020-06-28 16:28 | CASEMGMT ---
Social Work Spoke with [facility] whom reported is just not there yet with hospice. is conflicted and is needing more time to make a decision. respectfully requested to not have follow-up calls, and he will reach out when he is ready. Will discuss with IDT and follow up appropriately. Nayeli Reveles, CYNTHIA GUILLENW
[2020-06-28] MEDS: Mirtazapine 15 MG Tablet 7.5 MG PO (20:10)
--- NOTE | 2020-06-28 22:22 | CPS ---
Pt. refused to wear BiPAP tonight. Oxygenation is doing well on 3L NC.
[2020-06-29 06:09] VITALS: BP 100/48; PULSE 70; RESP 18; TEMP 36.4; O2SAT 99
[2020-06-29] MEDS: APIXABAN 2.5 MG TABLET PO ×2 (06:13→17:50)
[2020-06-29] MEDS: cycloBENZAPRine HCl 5 MG TABLET PO ×2 (06:13→17:50)
[2020-06-29] MEDS: Amiodarone 200 MG Tablet PO (06:13)
[2020-06-29] MEDS: DULoxetine Hcl 20 MG Capsule 40 MG PO (06:13)
[2020-06-29] MEDS: Carvedilol 3.125 MG TABLET PO ×2 (06:13→17:50)
[2020-06-29] MEDS: Docusate Sodium 100 MG Capsule 200 MG PO (06:13)
[2020-06-29] MEDS: Furosemide 40 MG Tablet PO (06:14)
[2020-06-29] MEDS: Levothyroxine 50 MCG Tablet PO (06:14)
[2020-06-29] MEDS: Memantine Hydrochloride 10 MG Tablet PO ×2 (06:14→17:50)
[2020-06-29] MEDS: traMADol 50 MG Tablet 100 MG PO ×2 (06:29→17:55)
[2020-06-29 07:12] VITALS: O2SAT 97
[2020-06-29] MEDS: Cyanocobalamin 500 MCG Tablet 1000 MCG PO (08:37)
[2020-06-29] MEDS: Calcium Carb/Vitamin D 1 TABLET Tablet PO ×3 (08:37→17:50)
[2020-06-29] MEDS: Aspirin E.C. 81 MG Tablet PO (08:37)
[2020-06-29 14:22] VITALS: BP 96/54; PULSE 85; RESP 20; TEMP 36.7; O2SAT 91
[2020-06-29] MEDS: Mirtazapine 15 MG Tablet 7.5 MG PO (20:13)
--- NOTE | 2020-06-29 22:16 | NURSING ---
SSE completed per order. Pt unable to understand to hold water in. Immediate return of brown liquid.
[2020-06-29 22:19] VITALS: PULSE 67; O2SAT 95
[2020-06-29 23:12] VITALS: PULSE 61; RESP 12; RESP 19; O2SAT 96
[2020-06-30] MEDS: cycloBENZAPRine HCl 5 MG TABLET PO ×2 (05:42→17:36)
[2020-06-30] MEDS: Carvedilol 3.125 MG TABLET PO ×2 (05:42→17:35)
[2020-06-30] MEDS: APIXABAN 2.5 MG TABLET PO ×2 (05:42→17:36)
[2020-06-30] MEDS: Memantine Hydrochloride 10 MG Tablet PO ×2 (05:42→17:36)
[2020-06-30] MEDS: Polyethylene Glycol 3350 17 GM PACKET PO (05:42)
[2020-06-30] MEDS: Docusate Sodium 100 MG Capsule 200 MG PO (05:42)
[2020-06-30] MEDS: Levothyroxine 50 MCG Tablet PO (05:42)
[2020-06-30] MEDS: DULoxetine Hcl 20 MG Capsule 40 MG PO (05:42)
[2020-06-30] MEDS: traMADol 50 MG Tablet 100 MG PO ×2 (05:45→17:36)
[2020-06-30] MEDS: Furosemide 40 MG Tablet PO (05:49)
[2020-06-30] MEDS: Amiodarone 200 MG Tablet PO (05:49)
[2020-06-30 05:55] VITALS: BP 101/52; PULSE 69; RESP 17; TEMP 36.3; O2SAT 93
[2020-06-30 07:08] VITALS: O2SAT 95
[2020-06-30] MEDS: Cyanocobalamin 500 MCG Tablet 1000 MCG PO (08:45)
[2020-06-30] MEDS: Calcium Carb/Vitamin D 1 TABLET Tablet PO ×3 (08:45→17:35)
[2020-06-30] MEDS: Psyllium 1 PACKET PO (08:45)
[2020-06-30] MEDS: Aspirin E.C. 81 MG Tablet PO (08:45)
[2020-06-30 11:29] VITALS: O2SAT 94
[2020-06-30 14:34] VITALS: BP 102/40; PULSE 57; RESP 15; TEMP 36.4; O2SAT 98
[2020-06-30] MEDS: Mirtazapine 15 MG Tablet 7.5 MG PO (19:25)
[2020-07-01] MEDS: Furosemide 40 MG Tablet PO (05:27)
[2020-07-01] MEDS: Levothyroxine 50 MCG Tablet PO (05:27)
[2020-07-01] MEDS: Carvedilol 3.125 MG TABLET PO ×2 (05:27→17:29)
[2020-07-01] MEDS: Docusate Sodium 100 MG Capsule 200 MG PO (05:27)
[2020-07-01] MEDS: cycloBENZAPRine HCl 5 MG TABLET PO ×2 (05:27→17:30)
[2020-07-01] MEDS: Amiodarone 200 MG Tablet PO (05:27)
[2020-07-01] MEDS: Polyethylene Glycol 3350 17 GM PACKET PO (05:27)
[2020-07-01] MEDS: DULoxetine Hcl 20 MG Capsule 40 MG PO (05:27)
[2020-07-01] MEDS: Memantine Hydrochloride 10 MG Tablet PO ×2 (05:27→17:30)
[2020-07-01] MEDS: APIXABAN 2.5 MG TABLET PO ×2 (05:28→17:29)
[2020-07-01] MEDS: traMADol 50 MG Tablet 100 MG PO ×2 (05:31→17:29)
[2020-07-01 05:32] VITALS: BP 95/75; PULSE 81; RESP 17; TEMP 36.4; O2SAT 93
[2020-07-01] MEDS: Calcium Carb/Vitamin D 1 TABLET Tablet PO ×3 (08:42→17:29)
[2020-07-01] MEDS: Aspirin E.C. 81 MG Tablet PO (08:42)
[2020-07-01] MEDS: Cyanocobalamin 500 MCG Tablet 1000 MCG PO (08:42)
[2020-07-01] MEDS: Psyllium 1 PACKET PO (08:42)
[2020-07-01 13:53] VITALS: BP 108/49; PULSE 64; RESP 20; TEMP 36.4; O2SAT 96
[2020-07-01] MEDS: Mirtazapine 15 MG Tablet 7.5 MG PO (19:26)
[2020-07-01 22:45] VITALS: PULSE 65; RESP 12; RESP 28; O2SAT 95
[2020-07-02 01:07] VITALS: PULSE 66; RESP 12; RESP 22; O2SAT 95
[2020-07-02 04:50] VITALS: PULSE 64; RESP 12; RESP 20; O2SAT 96
[2020-07-02] MEDS: Docusate Sodium 100 MG Capsule 200 MG PO (05:00)
[2020-07-02] MEDS: Furosemide 40 MG Tablet PO (05:00)
[2020-07-02] MEDS: APIXABAN 2.5 MG TABLET PO ×2 (05:00→17:06)
[2020-07-02] MEDS: Levothyroxine 50 MCG Tablet PO (05:00)
[2020-07-02] MEDS: Polyethylene Glycol 3350 17 GM PACKET PO (05:00)
[2020-07-02] MEDS: cycloBENZAPRine HCl 5 MG TABLET PO ×2 (05:00→17:06)
[2020-07-02] MEDS: Memantine Hydrochloride 10 MG Tablet PO ×2 (05:00→17:06)
[2020-07-02] MEDS: Amiodarone 200 MG Tablet PO (05:00)
[2020-07-02] MEDS: DULoxetine Hcl 20 MG Capsule 40 MG PO (05:00)
[2020-07-02] MEDS: Carvedilol 3.125 MG TABLET PO ×2 (05:00→17:06)
[2020-07-02] MEDS: Menthol/Lanolin/Calamine/Znox 113 GM Tube 1 APPLIC TOPICAL ×2 (05:05→21:18)
[2020-07-02] MEDS: traMADol 50 MG Tablet 100 MG PO ×2 (05:05→17:05)
[2020-07-02 05:12] VITALS: BP 95/60; PULSE 61; RESP 18; TEMP 36.6; O2SAT 93
[2020-07-02 07:11] VITALS: O2SAT 99
[2020-07-02] MEDS: Calcium Carb/Vitamin D 1 TABLET Tablet PO ×3 (08:32→17:06)
[2020-07-02] MEDS: Aspirin E.C. 81 MG Tablet PO (08:32)
[2020-07-02] MEDS: Cyanocobalamin 500 MCG Tablet 1000 MCG PO (08:32)
[2020-07-02 13:48] VITALS: BP 92/56; PULSE 64; RESP 20; TEMP 36.1; O2SAT 3
--- NOTE | 2020-07-02 13:58 | MDS.RN ---
Information for the mds was obtained from review of the clinical record, interview of resident, staff, and direct observation of resident's care.
--- NOTE | 2020-07-02 14:48 | CASEMGMT ---
Social Work Spoke with patient's to follow up plans/offer assistance. expressed being very torn about the decision he has to make. He feels either decision will be the wrong one. He contacted several nonskilled [facility] agencies and they have no availability. Provided a list with more agencies for him to contact. met with AD at [facility] and he could not visit until imminent. does not want to never see her again. Offered pt and move into AL together, to see each other but still have the assistance needed for pt. Hospice can assist and provide services at AL as well. Reiterated any decision can be temporary. Provided list of AL. considering that idea. Provided continued emotional and verbal support. very appreciative of assistance. Will continue to follow. CYNTHIA Sparks
[2020-07-02 17:02] VITALS: BP 111/64; PULSE 89
[2020-07-02] MEDS: Mirtazapine 15 MG Tablet 7.5 MG PO (21:19)
[2020-07-03 06:25] VITALS: BP 111/67; PULSE 66; RESP 18; TEMP 36.6; O2SAT 97
[2020-07-03] MEDS: Menthol/Lanolin/Calamine/Znox 113 GM Tube 1 APPLIC TOPICAL ×2 (06:26→20:10)
[2020-07-03] MEDS: DULoxetine Hcl 20 MG Capsule 40 MG PO (06:27)
[2020-07-03] MEDS: Polyethylene Glycol 3350 17 GM PACKET PO (06:27)
[2020-07-03] MEDS: Amiodarone 200 MG Tablet PO (06:28)
[2020-07-03] MEDS: APIXABAN 2.5 MG TABLET PO ×2 (06:28→17:10)
[2020-07-03] MEDS: Furosemide 40 MG Tablet PO (06:28)
[2020-07-03] MEDS: Docusate Sodium 100 MG Capsule 200 MG PO (06:28)
[2020-07-03] MEDS: Levothyroxine 50 MCG Tablet PO (06:28)
[2020-07-03] MEDS: Memantine Hydrochloride 10 MG Tablet PO ×2 (06:29→17:11)
[2020-07-03] MEDS: traMADol 50 MG Tablet 100 MG PO ×2 (06:32→17:13)
[2020-07-03] MEDS: Carvedilol 3.125 MG TABLET PO ×2 (06:36→17:09)
[2020-07-03] MEDS: cycloBENZAPRine HCl 5 MG TABLET PO ×2 (06:37→17:10)
[2020-07-03] MEDS: Cyanocobalamin 500 MCG Tablet 1000 MCG PO (09:00)
[2020-07-03] MEDS: Psyllium 1 PACKET PO (09:00)
[2020-07-03] MEDS: Calcium Carb/Vitamin D 1 TABLET Tablet PO ×3 (09:00→17:09)
[2020-07-03] MEDS: Aspirin E.C. 81 MG Tablet PO (09:00)
[2020-07-03 14:06] VITALS: BP 111/49; PULSE 91; RESP 17; TEMP 36.5; O2SAT 99
[2020-07-03] MEDS: Mirtazapine 15 MG Tablet 7.5 MG PO (20:09)
[2020-07-04] MEDS: traMADol 50 MG Tablet 100 MG PO ×2 (04:56→17:50)
[2020-07-04] MEDS: Polyethylene Glycol 3350 17 GM PACKET PO (04:56)
[2020-07-04] MEDS: Memantine Hydrochloride 10 MG Tablet PO ×2 (04:57→17:48)
[2020-07-04] MEDS: Furosemide 40 MG Tablet PO (04:57)
[2020-07-04] MEDS: Amiodarone 200 MG Tablet PO (04:57)
[2020-07-04] MEDS: Carvedilol 3.125 MG TABLET PO ×2 (04:57→17:47)
[2020-07-04] MEDS: DULoxetine Hcl 20 MG Capsule 40 MG PO (04:57)
[2020-07-04] MEDS: Levothyroxine 50 MCG Tablet PO (04:57)
[2020-07-04] MEDS: cycloBENZAPRine HCl 5 MG TABLET PO ×2 (04:57→17:47)
[2020-07-04] MEDS: Docusate Sodium 100 MG Capsule 200 MG PO (04:57)
[2020-07-04] MEDS: APIXABAN 2.5 MG TABLET PO ×2 (04:58→17:48)
[2020-07-04] MEDS: Menthol/Lanolin/Calamine/Znox 113 GM Tube 1 APPLIC TOPICAL ×2 (04:58→19:46)
[2020-07-04 05:06] VITALS: BP 134/61; PULSE 86; RESP 18; TEMP 36.4; O2SAT 98
[2020-07-04 05:44] LABS: Absolute Lymphocyte Count 1.03 X10^3/uL (0.83-4.51); Absolute Neutrophil Count 3.2 X10^3/uL (2.0-7.7); Basophil% 1.8 % (0-1); Eosinophil# 0.49 X10^3/uL; Eosinophils% 8.9 % (0-5); Hematocrit 34.2 % (37-47); Hemoglobin 10.2 g/dL (12.0-15.0); Lymphocyte # 1.03 X10^3/ul (4.0); Lymphocyte % 18.8 % (19-41); Mean Corp Hgb Conc 29.8 g/dL (32-36); Mean Corpuscular Hgb 27.6 pg (27.0-32.0); Mean Corpuscular Volume 92.4 fL (81-99); Mean Platelet Vol. 10.5 fl (6.2-12.0); Monocyte# 0.64 X10^3/uL; Monocyte% 11.7 % (0-10); NRBC Flagged by Analyzer 0 % (0-5); Neutrophil # 3.21 X10^3/uL (2.7-7.7); Neutrophil % 58.4 % (47-70); Platelet Count 401 K/mm3 (150-450); RBC Distribution Width CV 16.5 % (11.6-14.6); RBC Distribution Width SD 55.7 fl (35.1-43.9); White Blood Count 5.5 K/mm3 (4.4-11.0)
[2020-07-04 06:03] LABS: Anion Gap 2 (5-15); BUN 18 mg/dL (7-18); BUN/Creat Ratio 11.4 RATIO (10-20); Calcium,Total 9.2 mg/dL (8.5-10.1); Chloride 105 mmol/L (98-107); Creatinine, Serum 1.58 mg/dL (0.55-1.02); EST Glomerular Filtration Rate 33 mL/min (>60); Est Glom Filt Rate - Afr Amer 40 mL/min (>60); Estimated Creatinine Clearance 20.72 ml/min; Glucose 87 mg/dL (74-106); Potassium 3.9 mmol/L (3.5-5.1); Sodium Level 140 mmol/L (136-145)
[2020-07-04] MEDS: Calcium Carb/Vitamin D 1 TABLET Tablet PO ×3 (08:12→17:47)
[2020-07-04] MEDS: Cyanocobalamin 500 MCG Tablet 1000 MCG PO (08:12)
[2020-07-04] MEDS: Aspirin E.C. 81 MG Tablet PO (08:12)
[2020-07-04] MEDS: Psyllium 1 PACKET PO (08:12)
[2020-07-04 08:25] VITALS: O2SAT 95
--- NOTE | 2020-07-04 12:33 | CASEMGMT ---
Social Work Spoke with pt's whom decided for pt to transfer to [facility] temporarily until a nonskilled [facility] agency is able to accommodate the amount of hours pt needs to return home. would like to pt to receive therapy as long as possible prior to transferring. Relayed to therapy and will discuss LOS. Will continue to follow. CYNTHIA SparksW
[2020-07-04 15:11] VITALS: BP 92/60; PULSE 65; RESP 18; TEMP 36.9; O2SAT 90
[2020-07-04] MEDS: Mirtazapine 15 MG Tablet 7.5 MG PO (19:46)
--- NOTE | 2020-07-05 02:13 | CPS ---
Pt. claimed she didn't want to wear BiPAP at this time. Got to pt. later due to ER workflow. 3L nasal cannula on pt. (SpO2 = 95%). No apparent respiratory distress or discomfort breathing.
[2020-07-05 06:32] VITALS: BP 82/48; PULSE 90; RESP 20; TEMP 36.3; O2SAT 94
[2020-07-05] MEDS: traMADol 50 MG Tablet 100 MG PO ×2 (06:41→17:43)
[2020-07-05] MEDS: APIXABAN 2.5 MG TABLET PO ×2 (06:41→17:43)
[2020-07-05] MEDS: Polyethylene Glycol 3350 17 GM PACKET PO (06:41)
[2020-07-05] MEDS: DULoxetine Hcl 20 MG Capsule 40 MG PO (06:41)
[2020-07-05] MEDS: cycloBENZAPRine HCl 5 MG TABLET PO ×2 (06:41→17:44)
[2020-07-05] MEDS: Memantine Hydrochloride 10 MG Tablet PO ×2 (06:41→17:44)
[2020-07-05] MEDS: Docusate Sodium 100 MG Capsule 200 MG PO (06:42)
[2020-07-05] MEDS: Menthol/Lanolin/Calamine/Znox 113 GM Tube 1 APPLIC TOPICAL ×2 (06:42→20:37)
[2020-07-05] MEDS: Levothyroxine 50 MCG Tablet PO (06:42)
[2020-07-05] MEDS: Carvedilol 3.125 MG TABLET PO ×2 (06:42→17:43)
[2020-07-05] MEDS: Amiodarone 200 MG Tablet PO (06:42)
[2020-07-05 07:42] VITALS: O2SAT 93
[2020-07-05] MEDS: Cyanocobalamin 500 MCG Tablet 1000 MCG PO (09:18)
[2020-07-05] MEDS: Aspirin E.C. 81 MG Tablet PO (09:18)
[2020-07-05] MEDS: Calcium Carb/Vitamin D 1 TABLET Tablet PO ×3 (09:18→17:44)
[2020-07-05] MEDS: Psyllium 1 PACKET PO (09:19)
--- NOTE | 2020-07-05 13:06 | CASEMGMT ---
Social Work Spoke with pt's about issuing DC date 07/12. agreeable. 's plan is for pt to go to [facility] until he can get the aides hired in the home for her 25/05 care. requested hospice services. Notified the [facility] and [facility]. Pt will be private pay. Plan: DC 07/12 to the [place] CYNTHIA Sparks
[2020-07-05 15:12] VITALS: BP 94/56; PULSE 62; RESP 18; TEMP 36.7; O2SAT 92
--- NOTE | 2020-07-05 17:26 | DCINST_ITS ---
- Discharge Diagnoses Current Active Problems: Current Active and Chronic Problems (Last Reviewed 03/30/20 @ 14:[address] Gary Bullard MD) Encephalopathy (Acute) Weakness (Acute) Acute on chronic systolic (congestive) heart failure (Chronic) Alzheimer disease (Chronic) Atrial fibrillation (Chronic) Hypertension (Chronic) Breast cancer (Chronic) Hypothyroidism (Chronic) Hypokalemia (Chronic) Depression (Chronic) You will use the following diet at home:: No restrictions, Regular Your food should be the consistency of: Regular Your liquids should be the consistency of: Regular/Thin Discharge Activity: Return to Normal Activity, May Shower, Use Walker Weight Bearing Status: Weight bearing as tolerated Call your doctor if you observe: Fever of 101 or Higher, Inability to urinate, Inability to have a bowel movement, Shortness of breath, Chest pain, Uncontrolled pain Allergies/Adverse Reactions: Allergies Penicillins [PCN] Allergy (Verified 03/30/20 12:18) Rash Medications to take at Discharge cyclobenzaprine 5 mg tablet 5 mg PO BID tab 05/30/19 Calcium Citrate/Vitamin D3 [Calcium Cit 315-Vit D3 200 Tab] 1 tab PO TIDCM 08/19/19 Cholecalciferol (Vitamin D3) [D3-2000] 2,000 unit PO DAILY 08/19/19 Levothyroxine Sodium [Levoxyl] 50 mcg PO DAILY 08/19/19 Memantine Hydrochloride [Namenda] 10 mg PO BID 08/19/19 amiodarone 200 mg tablet 200 mg PO DAILY #90 tab 09/26/19 aspirin 81 mg tablet,delayed release 81 mg PO DAILY 09/26/19 docusate sodium 100 mg capsule 200 mg PO DAILY cap 09/26/19 carvedilol 3.125 mg tablet 3.125 mg PO BID #180 tab 12/13/19 polyethylene glycol 3350 17 gram/dose oral powder 2.5 ml PO QHS PRN PRN 12/13/19 Apixaban [Eliquis] 2.5 mg PO BID 02/17/20 Cyanocobalamin [Vitamin B12] 1,000 mcg PO DAILY@0800 02/17/20 Dymista 1 puff NASAL BID PRN PRN 02/17/20 Psyllium [Metamucil] 10 ml PO DAILY 02/17/20 duloxetine 40 mg capsule,delayed release sprinkle 40 mg PO DAILY 03/30/20 Tramadol HCl 100 mg PO BID 06/15/20 Albuterol Aerosols [Ventolin Aerosols] 2.5 mg INHALATION Q2H PRN PRN vial.neb. 06/19/20 Furosemide [Lasix] 40 mg PO DAILY 06/19/20 Polyethylene Glycol 3350 [Miralax] 17 gm PO DAILY 06/19/20 Potassium Chloride [K-Dur] 40 meq PO DAILYCM 06/19/20 Azelastine HCl [Astelin] 1 spray NASAL BID PRN nasal.sry 07/05/20 Ensure Enlive 120 ml PO 4X/DAY liquid 07/05/20 Fluticasone 0.05% [Flonase Nasal [place]] 1 spray NASAL BID PRN nasal.sry 07/05/20 Menthol/Lanolin/Calamine/Znox [Calmoseptine Ointment] 1 applic TOPICAL 0600,2200 tube 07/05/20 Mirtazapine [Remeron] 7.5 mg PO QHS tablet 07/05/20 Peg 400/Hypromellose/Glycerin [Artificial Tears] 2 drop EACH EYE Q1H PRN bottle 07/05/20 traMADol [Ultram] 100 mg PO BID 7 Days #28 tab 07/05/20 The following prescriptions were given: traMADol [Ultram] 100 mg PO BID 7 Days #28 tab Prescription Printed Primary Care Physician: Ben Loomis MD [Primary Care Provider] - Please follow up with your Primary Care Physician in: As needed. Test Results: Test results from this visit will be discussed in further detail at your follow- up appointment, if applicable. Please Follow Up With: Ben Loomis MD PCP When: after D/C Please Follow Up With: Gary Bullard MD When: As scheduled Proposed Discharge Date: 07/12/20
--- NOTE | 2020-07-05 17:28 | DS.PCM_ITS ---
Discharge Date and Diagnosis - Problem List Patient Problems: Active and Suspected Problems (Last Reviewed 03/30/20 @ 14:[address] Gary Bullard MD) Encephalopathy (Acute) Weakness (Acute) Date of Admission: 06/19/20 Date of Discharge: 07/12/20 - Primary Discharge Diagnosis Acute Problems: Active Problems (Last Reviewed 03/30/20 @ 14:[address] Gary Bullard MD) Encephalopathy (Acute) Weakness (Acute) - Secondary Discharge Diagnosis Chronic Problems: Chronic Problems (Last Reviewed 03/30/20 @ 14:[address] Gary Bullard MD) Acute on chronic systolic (congestive) heart failure (Chronic) Alzheimer disease (Chronic) Atrial fibrillation (Chronic) Hypertension (Chronic) Breast cancer (Chronic) Hypothyroidism (Chronic) Hypokalemia (Chronic) Depression (Chronic) Failure to thrive (Chronic) Chronic combined systolic and diastolic CHF (congestive heart failure) (Chronic) Non-ischemic cardiomyopathy (Chronic) Paroxysmal atrial fibrillation (Chronic) Left bundle branch block (LBBB) (Chronic) Essential (primary) hypertension (Chronic) CVA (cerebral vascular accident) (Chronic) Expressive aphasia History of breast cancer (Chronic) 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) Hospital Course and Treatment Imaging Results: 07/04/20 13:18 Diet: Regular - General Food consistency:: Mechanical (Minced/Moist) Liquid Consistency:: Regular/Thin Is pt able to select menu?: No Diet Comments: please breakfast at 0830;No straws;pills crushed in purees;SUPERVISED MEALS Labs (Last 48 Hours) 07/04/20 07/04/20 05:37 05:37 WBC 5.5 RBC 3.70 L Hgb 10.2 L Hct 34.2 L MCV 92.4 MCH 27.6 MCHC 29.8 L RDW Std Deviation 55.7 H RDW Coeff of Silvano 16.5 H Plt Count 401 MPV 10.5 Immature Gran % (Auto) 0.400 Neut % (Auto) 58.4 Lymph % (Auto) 18.8 L [place] % (Auto) 11.7 H Eos % (Auto) 8.9 H Baso % (Auto) 1.8 H Absolute Neuts (auto) 3.2 Absolute Lymphs (auto) 1.03 Nucleated RBC % 0 Sodium 140 Potassium 3.9 Chloride 105 Carbon Dioxide 33.0 H Anion Gap 2 L BUN 18 Creatinine 1.58 H Estim Creat Clear Calc 20.72 Est GFR (MDRD) Af Amer 40 L Est GFR (MDRD) Non-Af 33 L BUN/Creatinine Ratio 11.4 Glucose 87 Calcium 9.2 Operations: None Procedures: None Summary of Care Provided: The patient is a 84 year old Female with below past medical history hospitalized for encephalopathy secondary to hypoxia from acute on chronic systolic congestive heart failure, admitted to TCU with debility, here for rehabilitation, strengthening, prior to discharge home with . Discharge to [facility]. Patient Problems: Active and Suspected Problems (Last Reviewed 03/30/20 @ 14:[address] Gary Bullard MD) Encephalopathy (Acute) Weakness (Acute) - Physical Exam Vitals/I&O's: Vital Signs Temp Pulse Resp BP Pulse Ox 98.0 F 62 18 94/56 L 92 07/05/20 15:12 07/05/20 15:12 07/05/20 15:12 07/05/20 15:12 07/05/20 15:12 Oxygen Flow Rate (L/min) 2 Oxygen Delivery Method Nasal Cannula Weight: 49.073 kg Body Mass Index (BMI) 20.6 Intake and Output for Last 24 Hours 07/03/20 07/04/20 07/05/20 23:59 23:59 23:59 Intake Total 480 / 480 420 / 420 240 / 240 Balance 480 / 480 420 / 420 240 / 240 Current Medications Albuterol Sulfate (Ventolin Aerosols) 2.5 mg INHALATION Q2H PRN PRN PRN Reason: SOB/Wheezing Amiodarone HCl (Cordarone) 200 mg PO DAILY [facility] Last Admin: 07/05/20 06:42 Dose: 200 mg Documented by: Apixaban (Eliquis) 2.5 mg PO BID [facility] Last Admin: 07/05/20 06:41 Dose: 2.5 mg Documented by: Aspirin (Ecotrin) 81 mg PO DAILY@0800 [facility] Last Admin: 07/05/20 09:18 Dose: 81 mg Documented by: Azelastine HCl (Astelin) 1 spray NASAL BID PRN PRN Reason: Allergies Calamine/Phenol (Calmoseptine Ointment) 1 applic TOPICAL 0600,2200 [facility]; Protocol Last Admin: 09/03/20 06:42 Dose: 1 applicatio Documented by: Calcium/Vitamin D (Os-Raymond 500mg + D) 1 tablet PO TIDCM [facility] Last Admin: 07/05/20 12:24 Dose: 1 tablet Documented by: Carvedilol (Coreg) 3.125 mg PO BID [facility] Last Admin: 07/05/20 06:42 Dose: 3.125 mg Documented by: Cholecalciferol (Vitamin D (25mcg)) 2,000 unit PO DAILY [facility] Last Admin: 07/05/20 06:41 Dose: 2,000 unit Documented by: Cyanocobalamin (Vitamin B12) 1,000 mcg PO DAILY@0800 [facility] Last Admin: 07/05/20 09:18 Dose: 1,000 mcg Documented by: Cyclobenzaprine HCl (Cyclobenzaprine Hcl) 5 mg PO BID [facility] Last Admin: 07/05/20 06:41 Dose: 5 mg Documented by: Docusate Sodium (Colace) 200 mg PO DAILY [facility] Last Admin: 07/05/20 06:42 Dose: 200 mg Documented by: Duloxetine HCl (Cymbalta) 40 mg PO DAILY [facility] Last Admin: 07/05/20 06:41 Dose: 40 mg Documented by: Fluticasone Propionate (Flonase Nasal [place]) 1 spray NASAL BID PRN PRN Reason: ALLERGIES Furosemide (Lasix) 40 mg PO DAILY [facility] Last Admin: 07/05/20 07:31 Dose: Not Given Documented by: Levothyroxine Sodium (Synthroid) 50 mcg PO DAILY@0600 [facility] Last Admin: 07/05/20 06:42 Dose: 50 mcg Documented by: Lorazepam (Ativan) 0.25 mg PO Q12H PRN PRN PRN Reason: ANXIETY Last Admin: 06/24/20 09:54 Dose: 0.25 mg Documented by: Memantine (Namenda) 10 mg PO BID [facility] Last Admin: 07/05/20 06:41 Dose: 10 mg Documented by: Mirtazapine (Remeron) 7.5 mg PO QHS [facility] Last Admin: 07/04/20 19:46 Dose: 7.5 mg Documented by: Nutritional Formula (Lactose Free) (Ensure Enlive) 120 ml PO 4X/DAY [facility] Last Admin: 07/05/20 12:24 Dose: 120 ml Documented by: Polyethylene Glycol (Miralax) 17 gm PO QHS PRN PRN PRN Reason: Constipation Polyethylene Glycol (Miralax) 17 gm PO DAILY [facility] Last Admin: 07/05/20 06:41 Dose: 17 gm Documented by: [facility]assium Chloride (K-Dur) [facility] Last Admin: 07/05/20 09:18 Dose: 40 meq Documented by: Psyllium Hydrophilic Mucilloid (Metamucil) 1 packet PO DAILY@0800 [facility] Last Admin: 07/05/20 09:19 Dose: 1 packet Documented by: Tramadol HCl (Ultram) 100 mg PO BID [facility] Last Admin: 07/05/20 06:41 Dose: 100 mg Documented by: Discharge Diet: No Restrictions Discharge Activity: Return to Normal Activity, May Shower, Use Walker Weight Bearing Status: Weight bearing as tolerated Call your doctor if you observe: Fever of 101 or Higher, Inability to urinate, Inability to have a bowel movement, Shortness of breath, Chest pain, Uncontrolled pain Home Medications: Medications to take at Discharge cyclobenzaprine 5 mg tablet 5 mg PO BID tab 05/30/19 Calcium Citrate/Vitamin D3 [Calcium Cit 315-Vit D3 200 Tab] 1 tab PO TIDCM 08/19/19 Cholecalciferol (Vitamin D3) [D3-2000] 2,000 unit PO DAILY 08/19/19 Levothyroxine Sodium [Levoxyl] 50 mcg PO DAILY 08/19/19 Memantine Hydrochloride [Namenda] 10 mg PO BID 08/19/19 amiodarone 200 mg tablet 200 mg PO DAILY #90 tab 09/26/19 aspirin 81 mg tablet,delayed release 81 mg PO DAILY 09/26/19 docusate sodium 100 mg capsule 200 mg PO DAILY cap 09/26/19 carvedilol 3.125 mg tablet 3.125 mg PO BID #180 tab 12/13/19 polyethylene glycol 3350 17 gram/dose oral powder 2.5 ml PO QHS PRN PRN 12/13/19 Apixaban [Eliquis] 2.5 mg PO BID 02/17/20 Cyanocobalamin [Vitamin B12] 1,000 mcg PO DAILY@0800 02/17/20 Dymista 1 puff NASAL BID PRN PRN 02/17/20 Psyllium [Metamucil] 10 ml PO DAILY 02/17/20 duloxetine 40 mg capsule,delayed release sprinkle 40 mg PO DAILY 05/29/20 Tramadol HCl 100 mg PO BID 06/15/20 Albuterol Aerosols [Ventolin Aerosols] 2.5 mg INHALATION Q2H PRN PRN vial.neb. 06/19/20 Furosemide [Lasix] 40 mg PO DAILY 06/19/20 Polyethylene Glycol 3350 [Miralax] 17 gm PO DAILY 06/19/20 Potassium Chloride [K-Dur] 40 meq PO DAILYCM 06/19/20 Azelastine HCl [Astelin] 1 spray NASAL BID PRN nasal.sry 07/05/20 Ensure Enlive 120 ml PO 4X/DAY liquid 07/05/20 Fluticasone 0.05% [Flonase Nasal [place]] 1 spray NASAL BID PRN nasal.sry 07/05/20 Menthol/Lanolin/Calamine/Znox [Calmoseptine Ointment] 1 applic TOPICAL 0600,2200 tube 07/05/20 Mirtazapine [Remeron] 7.5 mg PO QHS tablet 07/05/20 Peg 400/Hypromellose/Glycerin [Artificial Tears] 2 drop EACH EYE Q1H PRN bottle 07/05/20 traMADol [Ultram] 100 mg PO BID 7 Days #28 tab 07/05/20 Following Prescriptions Were Given to Patient: traMADol [Ultram] 100 mg PO BID 7 Days #28 tab Prescription Printed Primary Care Physician: Ben Loomis MD [Primary Care Provider] - Please follow up with your Primary Care Physician in: As needed. Please Follow Up With: Ben Loomis MD PCP When: after D/C Please Follow Up With: Gary Bullard MD When: As scheduled Disposition: Asstd Living/Non-Skill [place] Minutes spent on discharge:: 30 Patient Condition:: Poor Medical Necessity - Tobacco Use Smoking Status: Never smoker Tobacco Use: Non-smoker Meaningful Use Info Meaningful Use Diagnoses (Choose all that apply): None applicable
--- NOTE | 2020-07-05 17:29 | PCM.TXEXTCAR ---
- Diet 07/04/20 13:18 Diet: Regular - General Food consistency:: Mechanical (Minced/Moist) Liquid Consistency:: Regular/Thin Is pt able to select menu?: No Diet Comments: please breakfast at 0830;No straws;pills crushed in purees;SUPERVISED MEALS - Routine Orders/Code Status Suppository Type: Dulcolax 10mg Suppository Frequency: Daily PRN Code Status: DNC-A - No Intubation. - Wound(s) Back Wound Type: scabs Left arm and hand Wound Type: scabs Left deltoid Wound Type: Abrasion B/L LE Wound Type: scabs - Therapies Weight Bearing: Weight bearing as tolerated Extremity Affected:: Bilateral Lower - Problem/Diagnosis (1) Encephalopathy Status: Acute Current Visit: Yes (2) Weakness Status: Acute Current Visit: Yes (3) Acute on chronic systolic (congestive) heart failure Status: Chronic Current Visit: Yes (4) Alzheimer disease Status: Chronic Current Visit: Yes (5) Atrial fibrillation Status: Chronic Current Visit: Yes (6) Hypertension Status: Chronic Current Visit: Yes (7) Breast cancer Status: Chronic Current Visit: Yes (8) Hypothyroidism Status: Chronic Current Visit: Yes (9) Hypokalemia Status: Chronic Current Visit: Yes (10) Depression Status: Chronic Current Visit: Yes (11) CVA (cerebral vascular accident) Status: Chronic Comment: Expressive aphasia Current Visit: No (12) Debility Status: Acute Current Visit: No - Allergies/Procedures Done in Hospital Allergies/Adverse Reactions: Allergies Penicillins [PCN] Allergy (Verified 03/30/20 12:18) Rash - Type of Care/Length of Stay Estimated LOS: Convalescent Care Less Than 30 days Type of Care Needed: Intermediate Rehab Potential: Poor Prognosis: Poor - Additional Orders/Day of Discharge Day of Discharge: 07/12/20 - Dietary and Speech Recommendations Dietitian Recommendations/Changes: Will liberalized diet to Regular mech soft (no fluid restrictions) d/t refusing meals and hx dementia. Will continue ONS at medpass for increased nutrition if consumed. Will continue ONS at meals for increased nutrition if consumed - Follow Up Care Primary Care Physician: Ben Loomis MD [Primary Care Provider] - Please follow up with your Primary Care Physician in: As needed. Please Follow Up With: Ben Loomis MD PCP When: after D/C Please Follow Up With: Gary Bullard MD When: As scheduled
[2020-07-05] MEDS: Mirtazapine 15 MG Tablet 7.5 MG PO (20:35)
[2020-07-06 06:45] VITALS: BP 89/58; PULSE 83; RESP 18; TEMP 36.4; O2SAT 98
[2020-07-06 06:50] VITALS: BP 108/63
[2020-07-06] MEDS: Memantine Hydrochloride 10 MG Tablet PO ×2 (07:01→17:36)
[2020-07-06] MEDS: DULoxetine Hcl 20 MG Capsule 40 MG PO (07:01)
[2020-07-06] MEDS: Menthol/Lanolin/Calamine/Znox 113 GM Tube 1 APPLIC TOPICAL ×2 (07:01→20:56)
[2020-07-06] MEDS: Docusate Sodium 100 MG Capsule 200 MG PO (07:01)
[2020-07-06] MEDS: Polyethylene Glycol 3350 17 GM PACKET PO (07:01)
[2020-07-06] MEDS: Amiodarone 200 MG Tablet PO (07:02)
[2020-07-06] MEDS: Carvedilol 3.125 MG TABLET PO ×2 (07:02→17:35)
[2020-07-06] MEDS: cycloBENZAPRine HCl 5 MG TABLET PO ×2 (07:02→17:37)
[2020-07-06] MEDS: APIXABAN 2.5 MG TABLET PO ×2 (07:02→17:37)
[2020-07-06] MEDS: Levothyroxine 50 MCG Tablet PO (07:02)
[2020-07-06] MEDS: traMADol 50 MG Tablet 100 MG PO ×2 (07:08→17:38)
[2020-07-06 07:15] VITALS: O2SAT 88
[2020-07-06] MEDS: Aspirin E.C. 81 MG Tablet PO (08:55)
[2020-07-06] MEDS: Calcium Carb/Vitamin D 1 TABLET Tablet PO ×3 (08:55→17:35)
[2020-07-06] MEDS: Cyanocobalamin 500 MCG Tablet 1000 MCG PO (08:55)
[2020-07-06] MEDS: Psyllium 1 PACKET PO (08:55)
[2020-07-06 13:50] VITALS: BP 102/61; PULSE 81; RESP 18; TEMP 36.7; O2SAT 97
[2020-07-06] MEDS: Mirtazapine 15 MG Tablet 7.5 MG PO (20:56)
[2020-07-06 22:00] VITALS: O2SAT 96
[2020-07-07 05:26] VITALS: BP 105/50; PULSE 82; RESP 16; TEMP 35.9; O2SAT 95
[2020-07-07] MEDS: Polyethylene Glycol 3350 17 GM PACKET PO (05:28)
[2020-07-07] MEDS: Amiodarone 200 MG Tablet PO (05:29)
[2020-07-07] MEDS: Docusate Sodium 100 MG Capsule 200 MG PO (05:29)
[2020-07-07] MEDS: Carvedilol 3.125 MG TABLET PO ×2 (05:29→16:53)
[2020-07-07] MEDS: Memantine Hydrochloride 10 MG Tablet PO ×2 (05:29→16:54)
[2020-07-07] MEDS: Levothyroxine 50 MCG Tablet PO (05:29)
[2020-07-07] MEDS: cycloBENZAPRine HCl 5 MG TABLET PO ×2 (05:29→16:53)
[2020-07-07] MEDS: APIXABAN 2.5 MG TABLET PO ×2 (05:29→16:54)
[2020-07-07] MEDS: DULoxetine Hcl 20 MG Capsule 40 MG PO (05:29)
[2020-07-07] MEDS: traMADol 50 MG Tablet 100 MG PO ×2 (05:32→16:56)
[2020-07-07] MEDS: Menthol/Lanolin/Calamine/Znox 113 GM Tube 1 APPLIC TOPICAL ×2 (05:42→20:28)
[2020-07-07] MEDS: Psyllium 1 PACKET PO (08:40)
[2020-07-07] MEDS: Cyanocobalamin 500 MCG Tablet 1000 MCG PO (08:41)
[2020-07-07] MEDS: Aspirin E.C. 81 MG Tablet PO (08:42)
[2020-07-07] MEDS: Calcium Carb/Vitamin D 1 TABLET Tablet PO ×3 (08:42→16:52)
[2020-07-07 11:22] VITALS: PULSE 64; RESP 18; O2SAT 92
[2020-07-07 15:32] VITALS: BP 92/58; PULSE 64; RESP 16; TEMP 36.4; O2SAT 92
[2020-07-07] MEDS: Mirtazapine 15 MG Tablet 7.5 MG PO (20:27)
[2020-07-07 22:20] VITALS: PULSE 89; RESP 12; RESP 20; O2SAT 98
[2020-07-08] MEDS: Menthol/Lanolin/Calamine/Znox 113 GM Tube 1 APPLIC TOPICAL ×2 (04:32→20:36)
[2020-07-08] MEDS: Memantine Hydrochloride 10 MG Tablet PO ×2 (04:33→17:31)
[2020-07-08] MEDS: DULoxetine Hcl 20 MG Capsule 40 MG PO (04:33)
[2020-07-08] MEDS: Amiodarone 200 MG Tablet PO (04:33)
[2020-07-08] MEDS: cycloBENZAPRine HCl 5 MG TABLET PO ×2 (04:33→17:30)
[2020-07-08] MEDS: Carvedilol 3.125 MG TABLET PO ×2 (04:34→17:30)
[2020-07-08] MEDS: APIXABAN 2.5 MG TABLET PO ×2 (04:34→17:31)
[2020-07-08] MEDS: Docusate Sodium 100 MG Capsule 200 MG PO (04:34)
[2020-07-08] MEDS: Levothyroxine 50 MCG Tablet PO (04:34)
[2020-07-08] MEDS: traMADol 50 MG Tablet 100 MG PO ×2 (04:35→17:29)
[2020-07-08] MEDS: Polyethylene Glycol 3350 17 GM PACKET PO (04:38)
[2020-07-08 04:46] VITALS: BP 107/62; PULSE 87; RESP 16; TEMP 36.4; O2SAT 94
[2020-07-08 07:30] VITALS: O2SAT 100
[2020-07-08] MEDS: Calcium Carb/Vitamin D 1 TABLET Tablet PO ×3 (09:17→17:30)
[2020-07-08] MEDS: Aspirin E.C. 81 MG Tablet PO (09:17)
[2020-07-08] MEDS: Psyllium 1 PACKET PO (09:18)
[2020-07-08] MEDS: Cyanocobalamin 500 MCG Tablet 1000 MCG PO (09:19)
[2020-07-08 14:21] VITALS: BP 84/58; PULSE 91; RESP 18; TEMP 36.8; O2SAT 94
--- NOTE | 2020-07-08 16:47 | NURSING ---
This nurse called patient's daughter and left message to call back.
[2020-07-08] MEDS: Mirtazapine 15 MG Tablet 7.5 MG PO (20:37)
[2020-07-08 22:00] VITALS: PULSE 84; RESP 12; RESP 18; O2SAT 97
[2020-07-09 02:53] VITALS: BP 93/56; PULSE 93; RESP 16; TEMP 36.6; O2SAT 96
[2020-07-09] MEDS: Polyethylene Glycol 3350 17 GM PACKET PO (04:31)
[2020-07-09] MEDS: Docusate Sodium 100 MG Capsule 200 MG PO (04:32)
[2020-07-09] MEDS: cycloBENZAPRine HCl 5 MG TABLET PO ×2 (04:32→17:12)
[2020-07-09] MEDS: Memantine Hydrochloride 10 MG Tablet PO ×2 (04:32→17:11)
[2020-07-09] MEDS: DULoxetine Hcl 20 MG Capsule 40 MG PO (04:32)
[2020-07-09] MEDS: Amiodarone 200 MG Tablet PO (04:33)
[2020-07-09] MEDS: Levothyroxine 50 MCG Tablet PO (04:33)
[2020-07-09] MEDS: Menthol/Lanolin/Calamine/Znox 113 GM Tube 1 APPLIC TOPICAL ×2 (04:33→21:53)
[2020-07-09] MEDS: APIXABAN 2.5 MG TABLET PO ×2 (04:34→17:11)
[2020-07-09] MEDS: Carvedilol 3.125 MG TABLET PO ×2 (04:34→17:12)
[2020-07-09] MEDS: traMADol 50 MG Tablet 100 MG PO ×2 (04:36→17:10)
[2020-07-09 06:50] VITALS: O2SAT 91
[2020-07-09] MEDS: Cyanocobalamin 500 MCG Tablet 1000 MCG PO (08:30)
[2020-07-09] MEDS: Calcium Carb/Vitamin D 1 TABLET Tablet PO ×3 (08:31→17:13)
[2020-07-09] MEDS: Aspirin E.C. 81 MG Tablet PO (08:31)
[2020-07-09] MEDS: Psyllium 1 PACKET PO (08:39)
--- NOTE | 2020-07-09 14:02 | NURSING ---
Addendum entered by Deena Valdez 07/10/20 05:13: Attempted to remove O2 while pt was resting in bed. SpO2 dropped to 83%. Pt denies SOB. 3L via NC was reapplied. SpO2 93-94% Original Note: Patient's spouse called today stating that he found a [facility] company that will be able to assist with the patient around the clock in his home. He requested that an attempt be made for the pt to be weened from O2 as she was on room air before admission. He further asked that someone contact him tomorrow on the progress of weening the pt, so that he can have oxygen in place in the home if so needed.
[2020-07-09 14:33] VITALS: BP 114/91; PULSE 88; RESP 14; TEMP 36.7; O2SAT 92
[2020-07-09 19:51] VITALS: O2SAT 98
[2020-07-09] MEDS: Mirtazapine 15 MG Tablet 7.5 MG PO (21:54)
[2020-07-10 04:03] VITALS: BP 111/68; PULSE 91; RESP 18; TEMP 36.7; O2SAT 92
[2020-07-10] MEDS: Levothyroxine 50 MCG Tablet PO (04:06)
[2020-07-10] MEDS: cycloBENZAPRine HCl 5 MG TABLET PO ×2 (04:06→17:59)
[2020-07-10] MEDS: Memantine Hydrochloride 10 MG Tablet PO ×2 (04:06→17:59)
[2020-07-10] MEDS: Amiodarone 200 MG Tablet PO (04:06)
[2020-07-10] MEDS: Carvedilol 3.125 MG TABLET PO ×2 (04:06→17:58)
[2020-07-10] MEDS: DULoxetine Hcl 20 MG Capsule 40 MG PO (04:06)
[2020-07-10] MEDS: APIXABAN 2.5 MG TABLET PO ×2 (04:08→17:58)
[2020-07-10] MEDS: Furosemide 40 MG Tablet PO (04:08)
[2020-07-10] MEDS: Menthol/Lanolin/Calamine/Znox 113 GM Tube 1 APPLIC TOPICAL ×2 (04:21→19:31)
[2020-07-10] MEDS: traMADol 50 MG Tablet 100 MG PO ×2 (04:24→18:06)
[2020-07-10] MEDS: Docusate Sodium 100 MG Capsule 200 MG PO (04:25)
[2020-07-10] MEDS: Polyethylene Glycol 3350 17 GM PACKET PO (04:29)
[2020-07-10 06:42] VITALS: O2SAT 97
[2020-07-10] MEDS: Psyllium 1 PACKET PO (08:12)
[2020-07-10] MEDS: Calcium Carb/Vitamin D 1 TABLET Tablet PO ×3 (08:12→17:59)
[2020-07-10] MEDS: Aspirin E.C. 81 MG Tablet PO (08:12)
[2020-07-10] MEDS: Cyanocobalamin 500 MCG Tablet 1000 MCG PO (08:12)
--- NOTE | 2020-07-10 10:21 | NURSING ---
called in & asked about oxygen removal. Explained it was attempted & oxygen sat dropped to 83% on room air. Transferred call to [facility] [place].
[2020-07-10] MEDS: Glycerin/Hypromellose/PEG400 15 ml Bottle 2 DRP EACH EYE ×2 (11:11→19:34)
--- NOTE | 2020-07-10 11:40 | NURSING ---
Addendum entered by Selam Richardson 07/10/20 16:02: Update given to spouse in regards to this and he would like a D-dimer done at this time. Dr Cortes called and d-dimer ordered STAT as well as CBC, BMP and UA. Original Note: Resident fidgety. Keeps eyes closed while this RN in room for assessment. Eye drops placed in each eye and fluids offerred. Does not attempt to converse with this RN. Will let Dr Cortes know about resident behavior.
--- NOTE | 2020-07-10 12:41 | CASEMGMT ---
Social Work contacted [facility] that he secured nonskilled HHC through [facility] and will now be able to take pt home vs [facility]. [facility]ified [facility] can transport pt home. Pt is using O2 bled into CPAP at night at 3LPM and does not have that at home. Contacted Dr. Zelaya's office, per request, they do not supply her DME - [facility] does. Contacted [facility]. They can complete order for DC 07/12. Will fax requesting orders and clinicals. Notified nursing to complete O2 testing. Plan: DC home 07/12 with [facility] CYNTHIA Sparks
[2020-07-10 13:42] VITALS: BP 106/48; PULSE 78; RESP 16; TEMP 36.3; O2SAT 98
--- NOTE | 2020-07-10 13:48 | NURSING ---
Oxygen sat 85% on Room air resting in recliner chair, sat 98% on 3 liters via NC resting in recliner chair. Staff had difficulty transfering her from bed to recliner chair for brkfst this AM. Pt noted to have increased jerky movements today, wont keep eyelids open. RN gave natural tears this AM for possible dry eyes. Pt denies pain, able to answer questions approp. will update dr de la vega
--- NOTE | 2020-07-10 16:10 | CASEMGMT ---
Social Work Spoke with whom is concerned about patient's change in condition. Explained pt is max x2 to stand or transfer. stated he cannot care for her in that condition at home. Explained hospice can assist the aides at home and continue to monitor changes. stated he decided not to utilize hospice services upon DC. Reexplained services and benefits it would provide to pt and . Provided emotional support throughout conversation. Validated 's fears with pt entering end of life stages. in denial about pt's decline and wants pt to get better before coming home. Offered for Dr. Cortes to contact to discuss treatment and prognosis - agreed. appreciative of SW support and conversation. Will continue to follow. Nayeli Reveles, CYNTHIA STEEL TURNER
--- NOTE | 2020-07-10 16:29 | NURSING ---
Dr Bullard stops by to check in resident per spouse's request. No new orders. He states he will stop by again tomorrow to check in on resident.
[2020-07-10 16:33] LABS: Mucous, Urine 0 SEEN /hpf (<or=2+)
[2020-07-10 16:44] LABS: Color, Urine Yellow (Yellow); Glucose, Dipstick Normal (Normal); Ketone-Dipstick Negative (Negative); Leukocyte Esterase-Dipstick 500 /ul (Negative); Nitrite-Dipstick Positive (Negative); Occult Blood-Urine 50 /ul (Negative); Protein-Dipstick 15 mg/dl (Negative); Urine Bilirubin Dipstick Negative (Negative); Urine Clarity Cloudy (Clear); Urine Urobilinogen Normal (Normal)
[2020-07-10 16:44] LABS: Absolute Lymphocyte Count 0.96 X10^3/uL (0.83-4.51); Absolute Neutrophil Count 4.8 X10^3/uL (2.0-7.7); Basophil# 0.06 X10^3/uL; Basophil% 0.9 % (0-1); Eosinophil# 0.41 X10^3/uL; Eosinophils% 5.8 % (0-5); Hematocrit 35.1 % (37-47); Hemoglobin 10.4 g/dL (12.0-15.0); Lymphocyte # 0.96 X10^3/ul (4.0); Lymphocyte % 13.7 % (19-41); Mean Corp Hgb Conc 29.6 g/dL (32-36); Mean Corpuscular Volume 94.4 fL (81-99); Mean Platelet Vol. 11.5 fl (6.2-12.0); Monocyte# 0.73 X10^3/uL; Monocyte% 10.4 % (0-10); NRBC Flagged by Analyzer 0 % (0-5); Neutrophil # 4.84 X10^3/uL (2.7-7.7); Neutrophil % 68.9 % (47-70); Platelet Count 323 K/mm3 (150-450); RBC Distribution Width SD 57.8 fl (35.1-43.9); Red Blood Count 3.72 M/mm3 (4.2-5.4)
[2020-07-10 17:04] LABS: Red Blood Cells-Urine 5-10 SEEN /hpf (0-5); Squamous Epithelial Cells - UA 0-5 SEEN /hpf (5-10)
[2020-07-10 17:05] LABS: Bacteria 2+ /hpf (None Seen); Calcium Oxalate Crystals Ur RARE /hpf (<or=2+)
[2020-07-10 17:06] LABS: White Blood Cells >100 SEEN /hpf (0-5)
[2020-07-10 17:11] LABS: Anion Gap 4 (5-15); BUN 25 mg/dL (7-18); BUN/Creat Ratio 14.9 RATIO (10-20); Calcium,Total 9.6 mg/dL (8.5-10.1); Chloride 111 mmol/L (98-107); Creatinine, Serum 1.68 mg/dL (0.55-1.02); EST Glomerular Filtration Rate 31 mL/min (>60); Est Glom Filt Rate - Afr Amer 37 mL/min (>60); Estimated Creatinine Clearance 19.48 ml/min; Glucose 122 mg/dL (74-106); Potassium 4.6 mmol/L (3.5-5.1); Sodium Level 147 mmol/L (136-145)
[2020-07-10 17:16] LABS: D-Dimer Quantitative (DVT/PE) 0.62 FEU/ug/m (0.27-0.49)
[2020-07-10] MEDS: Smz/Tmp Ds Tablet 1 TABLET PO (17:56)
[2020-07-10] MEDS: Mirtazapine 15 MG Tablet 7.5 MG PO (19:31)
[2020-07-11] VITALS (7 sets, daily range): BP systolic 86–97; BP diastolic 47–60; PULSE 80–96; RESP 12–30; TEMP 36.8–37.1; O2SAT 80–95
[2020-07-11] MEDS: traMADol 50 MG Tablet 100 MG PO (04:24)
[2020-07-11] MEDS: DULoxetine Hcl 20 MG Capsule 40 MG PO (04:25)
[2020-07-11] MEDS: APIXABAN 2.5 MG TABLET PO (04:25)
[2020-07-11] MEDS: Docusate Sodium 100 MG Capsule 200 MG PO (04:25)
[2020-07-11] MEDS: Carvedilol 3.125 MG TABLET PO (04:25)
[2020-07-11] MEDS: Polyethylene Glycol 3350 17 GM PACKET PO (04:25)
[2020-07-11] MEDS: Amiodarone 200 MG Tablet PO (04:25)
[2020-07-11] MEDS: cycloBENZAPRine HCl 5 MG TABLET PO (04:25)
[2020-07-11] MEDS: Memantine Hydrochloride 10 MG Tablet PO (04:26)
[2020-07-11] MEDS: Levothyroxine 50 MCG Tablet PO (04:26)
[2020-07-11] MEDS: Menthol/Lanolin/Calamine/Znox 113 GM Tube 1 APPLIC TOPICAL ×2 (04:26→22:00)
[2020-07-11 05:56] LABS: Absolute Lymphocyte Count 0.79 X10^3/uL (0.83-4.51); Absolute Neutrophil Count 5.8 X10^3/uL (2.0-7.7); Basophil# 0.11 X10^3/uL; Basophil% 1.4 % (0-1); Eosinophil# 0.41 X10^3/uL; Eosinophils% 5.3 % (0-5); Hematocrit 35.9 % (37-47); Hemoglobin 10.5 g/dL (12.0-15.0); Lymphocyte # 0.79 X10^3/ul (4.0); Lymphocyte % 10.3 % (19-41); Mean Corp Hgb Conc 29.2 g/dL (32-36); Mean Corpuscular Hgb 27.6 pg (27.0-32.0); Mean Corpuscular Volume 94.2 fL (81-99); Mean Platelet Vol. 11.6 fl (6.2-12.0); Monocyte# 0.58 X10^3/uL; Monocyte% 7.5 % (0-10); NRBC Flagged by Analyzer 0 % (0-5); Neutrophil # 5.78 X10^3/uL (2.7-7.7); Neutrophil % 75.1 % (47-70); Platelet Count 338 K/mm3 (150-450); RBC Distribution Width CV 17.2 % (11.6-14.6); RBC Distribution Width SD 58.6 fl (35.1-43.9); Red Blood Count 3.81 M/mm3 (4.2-5.4); White Blood Count 7.7 K/mm3 (4.4-11.0)
[2020-07-11 06:29] LABS: Anion Gap 6 (5-15); BUN 28 mg/dL (7-18); Calcium,Total 9.8 mg/dL (8.5-10.1); Chloride 110 mmol/L (98-107); Creatinine, Serum 1.65 mg/dL (0.55-1.02); EST Glomerular Filtration Rate 32 mL/min (>60); Est Glom Filt Rate - Afr Amer 38 mL/min (>60); Estimated Creatinine Clearance 19.84 ml/min; Glucose 145 mg/dL (74-106); Potassium 4.4 mmol/L (3.5-5.1); Sodium Level 145 mmol/L (136-145)
[2020-07-11] MEDS: Aspirin E.C. 81 MG Tablet PO (07:37)
[2020-07-11] MEDS: Cyanocobalamin 500 MCG Tablet 1000 MCG PO (07:37)
[2020-07-11] MEDS: Smz/Tmp Ds Tablet 0.5 TABLET PO ×2 (07:37→18:12)
[2020-07-11] MEDS: Psyllium 1 PACKET PO (07:39)
[2020-07-11] MEDS: Calcium Carb/Vitamin D 1 TABLET Tablet PO ×2 (07:39→11:43)
--- NOTE | 2020-07-11 08:15 | CASEMGMT ---
Social Work Dr. Cortes spoke with and consulted Dr. Bullard per his request. stated he wants to make sure none of pt's conditions can be reversed before throwing in the towel. did acknowledge SW indications of pt end of life and hospice services, but he is just not there yet. Dr. Cortes agreed to postpone patient discharge. Will continue to follow. Nayeli Reveles, SYSTEM DESIGNER [employer]
--- NOTE | 2020-07-11 12:30 | CASEMGMT ---
Social Work Spoke with Dr. Bullard whom reports pt is improving and would recommend pt to DC home 07/13 with Palliative Care. Discussed this scenario with Dr. Bullard and agreeable to converse with pt;s . Spoke with and explained above. still concerned with what treatment pt is receiving and if she will improve enough where she can be stable to DC home soon. He is concerned with her physical status as well. Therapy has not seen pt yet this date, but SW to continue to follow and provide updates to . Explained Palliative Care to . understands services but did not want to commit to anything at this time. Will continue to follow. Nayeli Reveles, CYN[employer]IA SALES AND MARKETING ASSISTANT
--- NOTE | 2020-07-11 15:20 | NURSING ---
Left message with daughter to call facility for update.
--- NOTE | 2020-07-11 18:19 | NURSING ---
Patient lethargic at this time. Was able to give Bactrim with the help of another nurse.
--- NOTE | 2020-07-11 23:00 | NURSING ---
Unable to give meds this evening d/t pt refusing to open eyes or mouth, when talked to or touched, just grunts and pushes at caregiver's hands.
[2020-07-12] VITALS (8 sets, daily range): BP systolic 100–105; BP diastolic 42–54; PULSE 80–101; RESP 12–30; TEMP 36.6–37; O2SAT 89–93
[2020-07-12] MEDS: Glycerin/Hypromellose/PEG400 15 ml Bottle 2 DRP EACH EYE ×4 (01:58→17:18)
[2020-07-12] MEDS: Mirtazapine 15 MG Tablet 7.5 MG PO ×2 (02:00→20:04)
--- NOTE | 2020-07-12 02:25 | NURSING ---
Pt awake, trying to crawl out of bed, speaking incoherently, keeps picking at gown and taking clothes off, took bipap off and pulled tubing apart, picking at attends. Does answer some questions appropriately, sat with pt, drank glass of coke and ate pudding, able to give meds that were missed earlier. IRAIS Aguilar and this nurse sat with patient and talked to her, held her hands until she calmed down, At times she said her head hurt and is fidgeting. O2 at 3l per NC but pt breathing with her mouth open, pox read 76%, encouraged pt to close mouth and breathe through nose, pox up to 80%, bipap reapplied once pt calmed down a little, pox increased to 94%, will continue to monitor.
[2020-07-12] MEDS: traMADol 50 MG Tablet 100 MG PO ×2 (02:26→17:16)
[2020-07-12] MEDS: Polyethylene Glycol 3350 17 GM PACKET PO (05:51)
[2020-07-12] MEDS: Memantine Hydrochloride 10 MG Tablet PO ×2 (05:52→17:14)
[2020-07-12] MEDS: Furosemide 40 MG Tablet PO (05:52)
[2020-07-12] MEDS: Levothyroxine 50 MCG Tablet PO (05:52)
[2020-07-12] MEDS: Amiodarone 200 MG Tablet PO (05:52)
[2020-07-12] MEDS: Carvedilol 3.125 MG TABLET PO ×2 (05:52→17:13)
[2020-07-12] MEDS: Menthol/Lanolin/Calamine/Znox 113 GM Tube 1 APPLIC TOPICAL ×2 (05:52→20:07)
[2020-07-12] MEDS: DULoxetine Hcl 20 MG Capsule 40 MG PO (05:52)
[2020-07-12] MEDS: APIXABAN 2.5 MG TABLET PO ×2 (05:52→17:13)
[2020-07-12] MEDS: cycloBENZAPRine HCl 5 MG TABLET PO ×2 (05:52→17:13)
[2020-07-12] MEDS: Docusate Sodium 100 MG Capsule 200 MG PO (05:52)
[2020-07-12] MEDS: Cyanocobalamin 500 MCG Tablet 1000 MCG PO (09:14)
[2020-07-12] MEDS: Calcium Carb/Vitamin D 1 TABLET Tablet PO ×3 (09:14→17:12)
[2020-07-12] MEDS: Aspirin E.C. 81 MG Tablet PO (09:14)
[2020-07-12] MEDS: Smz/Tmp Ds Tablet 0.5 TABLET PO ×2 (09:14→17:12)
[2020-07-12] MEDS: Psyllium 1 PACKET PO (09:21)
[2020-07-12] MEDS: Dext 5%-0.45% NS 1,000 ML 60 ML IV (11:13)
--- NOTE | 2020-07-12 11:34 | NURSING ---
Up in chair after working with therapy. Appears more alert and more talkative today. Remains confused. Able to drink her scheduled Ensure for this RN at this time. SPo2 remains around 90% on 4lmin of O2 per nasal cannula.
--- NOTE | 2020-07-12 16:04 | NURSING ---
Addendum entered by Selam Richardson 07/12/20 17:31: Dr Cortes aware of spouse concerns. He states he talked with Dr Bullard regarding the fluids. Dr Cortes gave orders to only infuse one liter of fluids then stop IV infusion. Original Note: Spoke with spouse, Mariama. He is concerned that resident will go into heart failure while on normal saline infusion. He would like Dr Bullard notified of this. Will notify Dr Cortes of his concerns.
--- NOTE | 2020-07-12 18:32 | NURSING ---
pt to F/U with Dr Bullard after discharge per Dr. Cortes. [employer] will make appointment.
--- NOTE | 2020-07-12 20:26 | NURSING ---
This nurse into give HS meds and do assessment. RR 21, SpO2 83% on 4L via NC. Fluids stopped. SpO2 up to 91% on 5L via NC. Abd noted to be very round, firm and bowel sounds hypoactive. Pt stating she is SOB. Lung sounds diminished. Dr. Cortes notified. New order to stop fluids. CXR PA and lateral. 200mg Lactulose enema x1.
--- NOTE | 2020-07-12 20:45 | RAD_ITS ---
STUDY: X-RAY CHEST REASON FOR EXAM: Female, 84 years old. LOW SPO2, CHF, RESPIRATORY FAILURE TECHNIQUE: AP portable COMPARISON: 06/18/2020 FINDINGS: Diffuse bilateral perihilar interstitial infiltrates or pulmonary edema.. There is no demonstrated pleural abnormality. Heart is enlarged.. Normal mediastinum and adithya. Normal visualized pulmonary arteries. Tortuous mildly calcified aortic arch and descending thoracic aorta. Normal visualized thoracic spine. Normal visualized ribs, clavicles, and shoulders. There is no demonstrated abnormality of the visualized soft tissue structures of the upper abdomen. There is worsening aeration seen since prior study particularly in left lower lobe with perhaps very slightly improved aeration in left upper lobe. RAD/Chest PA and Lateral IMPRESSION: Persistent bilateral perihilar interstitial infiltrates or pulmonary edema with worsening aeration of the left lower lobe since previous exam Electronically Signed: John Horner MD at 21:41 EDT , Service support ,
--- NOTE | 2020-07-12 21:57 | CPS ---
Pt.'s pressures increased to 16/10; pt. fluid-overloaded, so EPAP increased for alveolar recruitment. IPAP increased to keep pressure support at 6, and FiO2 increased to 45% due to oxygenation needs.
[2020-07-12] MEDS: Furosemide 40 MG/4 ML Vial IV (22:39)
[2020-07-12] MEDS: Lactulose 20 GM/30 ML UDC 200 GM RECTAL (22:39)
--- NOTE | 2020-07-12 23:11 | NURSING ---
Lactulose enema given per order. Pt unable to understand to hold liquid in. Immediate return of liquid with small amount of brown flacks. Pt tolerated procedure. SpO2 92% with Bipap on. Pt denied pain. Resting in bed with call light in reach. Bed to the lowest position, PA on and mats by bed.
[2020-07-13] VITALS (9 sets, daily range): BP systolic 84–109; BP diastolic 50–56; PULSE 85–98; RESP 12–22; TEMP 36.4–36.9; O2SAT 92–95
[2020-07-13] MEDS: Amiodarone 200 MG Tablet PO (05:46)
[2020-07-13] MEDS: Carvedilol 3.125 MG TABLET PO ×2 (05:46→18:39)
[2020-07-13] MEDS: APIXABAN 2.5 MG TABLET PO ×2 (05:46→18:39)
[2020-07-13] MEDS: Docusate Sodium 100 MG Capsule 200 MG PO (05:46)
[2020-07-13] MEDS: Levothyroxine 50 MCG Tablet PO (05:47)
[2020-07-13] MEDS: cycloBENZAPRine HCl 5 MG TABLET PO ×2 (05:47→18:39)
[2020-07-13] MEDS: Memantine Hydrochloride 10 MG Tablet PO ×2 (05:47→18:39)
[2020-07-13] MEDS: DULoxetine Hcl 20 MG Capsule 40 MG PO (05:47)
[2020-07-13] MEDS: Furosemide 40 MG Tablet PO (05:48)
[2020-07-13] MEDS: traMADol 50 MG Tablet 100 MG PO ×2 (05:48→18:39)
[2020-07-13] MEDS: Menthol/Lanolin/Calamine/Znox 113 GM Tube 1 APPLIC TOPICAL ×2 (05:57→21:56)
[2020-07-13 08:51] LABS: Absolute Lymphocyte Count 0.95 X10^3/uL (0.83-4.51); Absolute Neutrophil Count 10.4 X10^3/uL (2.0-7.7); Basophil# 0.06 X10^3/uL; Basophil% 0.5 % (0-1); Eosinophil# 0.31 X10^3/uL; Eosinophils% 2.5 % (0-5); Hematocrit 33.2 % (37-47); Hemoglobin 9.9 g/dL (12.0-15.0); Lymphocyte # 0.95 X10^3/ul (4.0); Lymphocyte % 7.8 % (19-41); Mean Corp Hgb Conc 29.8 g/dL (32-36); Mean Corpuscular Hgb 27.7 pg (27.0-32.0); Mean Platelet Vol. 11.4 fl (6.2-12.0); Monocyte# 0.43 X10^3/uL; Monocyte% 3.5 % (0-10); NRBC Flagged by Analyzer 0.2 % (0-5); Neutrophil # 10.39 X10^3/uL (2.7-7.7); Neutrophil % 85.1 % (47-70); Platelet Count 305 K/mm3 (150-450); RBC Distribution Width CV 17.5 % (11.6-14.6); RBC Distribution Width SD 58.7 fl (35.1-43.9); Red Blood Count 3.57 M/mm3 (4.2-5.4); White Blood Count 12.2 K/mm3 (4.4-11.0)
[2020-07-13] MEDS: Calcium Carb/Vitamin D 1 TABLET Tablet PO ×3 (08:55→18:39)
[2020-07-13] MEDS: Smz/Tmp Ds Tablet 0.5 TABLET PO ×2 (08:55→18:39)
[2020-07-13] MEDS: Psyllium 1 PACKET PO (08:55)
[2020-07-13] MEDS: Aspirin E.C. 81 MG Tablet PO (08:55)
[2020-07-13] MEDS: Cyanocobalamin 500 MCG Tablet 1000 MCG PO (08:55)
[2020-07-13 09:05] LABS: Anion Gap 8 (5-15); BUN 38 mg/dL (7-18); BUN/Creat Ratio 22.6 RATIO (10-20); Calcium,Total 8.9 mg/dL (8.5-10.1); Chloride 108 mmol/L (98-107); Creatinine, Serum 1.68 mg/dL (0.55-1.02); EST Glomerular Filtration Rate 31 mL/min (>60); Est Glom Filt Rate - Afr Amer 37 mL/min (>60); Estimated Creatinine Clearance 19.48 ml/min; Glucose 129 mg/dL (74-106); Potassium 3.6 mmol/L (3.5-5.1); Sodium Level 147 mmol/L (136-145)
--- NOTE | 2020-07-13 09:34 | CASEMGMT ---
Social Work Spoke with pt's to follow up on DC plans. spoke with therapy, Dr. Bullard and Dr. Cortes whom all agree pt is ready to DC home 07/16. agreeable. SW updated [facility] to deliver O2. Nursing to complete O2 testing. Inquired about Palliative/Hospice. states he feels he can assess her and they would not provide a benefit at this time. He would like to take pt home and see how she is doing. He will contact [facility] if he would like their services. can transport pt home. appreciative of assistance. Plan: DC home 07/16 with with nonskilled HHC [facility]
--- NOTE | 2020-07-13 11:15 | CASEMGMT ---
Social Work Therapy completed O2 testing with patient. On 5 LPM O2 at rest: 84-86% No O2 at rest 77% Upon exertion on 5LPM O2: 83% Upon exertion without O2: 78% Faxed testing to [facility] for qualification. [facility] to deliver O2 to pt's home 9/14 AM and pt to DC PM. Nayeli Reveles, COMMUNITY LEADER CONTENT CREATION MANAGER
[2020-07-13] MEDS: Mirtazapine 15 MG Tablet 7.5 MG PO (21:57)
[2020-07-14 03:20] VITALS: PULSE 88; RESP 12; RESP 30; O2SAT 91
--- NOTE | 2020-07-14 03:28 | CPS ---
Pt.'s FiO2 increased to 55% in order to help improve oxygenation status
[2020-07-14 03:34] VITALS: BP 101/48; PULSE 89; RESP 16; TEMP 36.6; O2SAT 92
[2020-07-14] MEDS: DULoxetine Hcl 20 MG Capsule 40 MG PO (06:18)
[2020-07-14] MEDS: Amiodarone 200 MG Tablet PO (06:18)
[2020-07-14] MEDS: Levothyroxine 50 MCG Tablet PO (06:18)
[2020-07-14] MEDS: Memantine Hydrochloride 10 MG Tablet PO ×2 (06:18→18:45)
[2020-07-14] MEDS: Polyethylene Glycol 3350 17 GM PACKET PO (06:18)
[2020-07-14] MEDS: APIXABAN 2.5 MG TABLET PO ×2 (06:18→18:45)
[2020-07-14] MEDS: Docusate Sodium 100 MG Capsule 200 MG PO (06:18)
[2020-07-14] MEDS: cycloBENZAPRine HCl 5 MG TABLET PO ×2 (06:18→18:45)
[2020-07-14] MEDS: Carvedilol 3.125 MG TABLET PO (06:19)
[2020-07-14] MEDS: traMADol 50 MG Tablet 100 MG PO ×2 (06:24→18:45)
[2020-07-14] MEDS: Menthol/Lanolin/Calamine/Znox 113 GM Tube 1 APPLIC TOPICAL ×2 (06:26→21:32)
[2020-07-14 06:58] VITALS: O2SAT 92
[2020-07-14 08:33] LABS: Anion Gap 7 (5-15); BUN 41 mg/dL (7-18); BUN/Creat Ratio 23.8 RATIO (10-20); Calcium,Total 9.3 mg/dL (8.5-10.1); Chloride 108 mmol/L (98-107); Creatinine, Serum 1.72 mg/dL (0.55-1.02); EST Glomerular Filtration Rate 30 mL/min (>60); Est Glom Filt Rate - Afr Amer 36 mL/min (>60); Estimated Creatinine Clearance 19.03 ml/min; Glucose 110 mg/dL (74-106); Potassium 4.7 mmol/L (3.5-5.1); Sodium Level 142 mmol/L (136-145)
[2020-07-14] MEDS: Calcium Carb/Vitamin D 1 TABLET Tablet PO ×3 (08:50→18:44)
[2020-07-14] MEDS: Cyanocobalamin 500 MCG Tablet 1000 MCG PO (08:50)
[2020-07-14] MEDS: Aspirin E.C. 81 MG Tablet PO (08:50)
[2020-07-14] MEDS: Smz/Tmp Ds Tablet 0.5 TABLET PO ×2 (08:50→18:43)
[2020-07-14] MEDS: Psyllium 1 PACKET PO (08:51)
--- NOTE | 2020-07-14 10:25 | NURSING ---
Patient's blood pressure 88/52 sitting at this time. Lasix held due to low blood pressure. Will recheck
--- NOTE | 2020-07-14 10:45 | NURSING ---
Dr. Bullard called and updated on patient's status. Doctor made aware of patient's low blood pressure and concerns about administering Lasix 40mg IV. Doctor told this nurse if systolic blood pressure is 100 or above, we are to give medication. Charge nurse made aware.
--- NOTE | 2020-07-14 14:36 | NURSING ---
Patient's blood pressure 92/58 at this time. Will continue to monitor.
--- NOTE | 2020-07-14 18:16 | NURSING ---
Dr. Bullard called for update on patient's status. Blood pressure continues to stay at or around 92/58. Doctor told this nurse to hold Coreg tonight and reassess tomorrow morning. If systolic blood pressure is 100 or above, administer Lasix 40mg IV. Charge nurse aware.
[2020-07-14 18:57] VITALS: BP 92/58; PULSE 88; RESP 20; TEMP 36.3; O2SAT 93
[2020-07-14] MEDS: Mirtazapine 15 MG Tablet 7.5 MG PO (21:32)
[2020-07-15] VITALS (7 sets, daily range): BP systolic 95–124; BP diastolic 48–68; PULSE 74–94; RESP 12–27; TEMP 36.3–36.4; O2SAT 92–98
[2020-07-15] MEDS: Menthol/Lanolin/Calamine/Znox 113 GM Tube 1 APPLIC TOPICAL ×2 (06:17→20:15)
[2020-07-15] MEDS: Polyethylene Glycol 3350 17 GM PACKET PO (06:17)
[2020-07-15] MEDS: Glycerin/Hypromellose/PEG400 15 ml Bottle 2 DRP EACH EYE ×3 (06:20→20:07)
[2020-07-15] MEDS: Levothyroxine 50 MCG Tablet PO (06:21)
[2020-07-15] MEDS: Amiodarone 200 MG Tablet PO (06:21)
[2020-07-15] MEDS: Memantine Hydrochloride 10 MG Tablet PO ×2 (06:21→17:43)
[2020-07-15] MEDS: cycloBENZAPRine HCl 5 MG TABLET PO ×2 (06:21→17:43)
[2020-07-15] MEDS: Carvedilol 3.125 MG TABLET PO ×2 (06:21→17:43)
[2020-07-15] MEDS: traMADol 50 MG Tablet 100 MG PO ×2 (06:22→17:42)
[2020-07-15] MEDS: DULoxetine Hcl 20 MG Capsule 40 MG PO (06:23)
[2020-07-15] MEDS: APIXABAN 2.5 MG TABLET PO ×2 (06:23→17:43)
[2020-07-15] MEDS: Cyanocobalamin 500 MCG Tablet 1000 MCG PO (08:36)
[2020-07-15] MEDS: Aspirin E.C. 81 MG Tablet PO (08:36)
[2020-07-15] MEDS: Smz/Tmp Ds Tablet 0.5 TABLET PO ×2 (08:36→17:42)
[2020-07-15] MEDS: Calcium Carb/Vitamin D 1 TABLET Tablet PO ×3 (08:36→17:43)
[2020-07-15] MEDS: 0.9% Saline Lock 10 ML Syringe IV (10:57)
--- NOTE | 2020-07-15 14:59 | NURSING ---
Dr. Bullard called to unit, updated on vitals and pt. N.O. to give 18:00 dose of Lasix now since AM dose was held d/t low BP.
[2020-07-15] MEDS: Furosemide 40 MG/4 ML Vial IV (15:11)
[2020-07-15] MEDS: Mirtazapine 15 MG Tablet 7.5 MG PO (20:20)
[2020-07-16] VITALS (7 sets, daily range): BP systolic 83–103; BP diastolic 43–56; PULSE 81–89; RESP 12–20; TEMP 36.9; O2SAT 92–99
[2020-07-16] MEDS: Menthol/Lanolin/Calamine/Znox 113 GM Tube 1 APPLIC TOPICAL (06:44)
[2020-07-16] MEDS: Glycerin/Hypromellose/PEG400 15 ml Bottle 2 DRP EACH EYE (06:44)
[2020-07-16] MEDS: traMADol 50 MG Tablet 100 MG PO (06:50)
[2020-07-16] MEDS: Polyethylene Glycol 3350 17 GM PACKET PO (06:51)
[2020-07-16] MEDS: Carvedilol 3.125 MG TABLET PO (06:55)
[2020-07-16] MEDS: DULoxetine Hcl 20 MG Capsule 40 MG PO (06:55)
[2020-07-16] MEDS: cycloBENZAPRine HCl 5 MG TABLET PO (06:55)
[2020-07-16] MEDS: Levothyroxine 50 MCG Tablet PO (06:55)
[2020-07-16] MEDS: Docusate Sodium 100 MG Capsule 200 MG PO (06:55)
[2020-07-16] MEDS: Amiodarone 200 MG Tablet PO (06:55)
[2020-07-16] MEDS: Memantine Hydrochloride 10 MG Tablet PO (06:55)
[2020-07-16] MEDS: APIXABAN 2.5 MG TABLET PO (06:56)
[2020-07-16] MEDS: Calcium Carb/Vitamin D 1 TABLET Tablet PO ×2 (08:31→11:25)
[2020-07-16] MEDS: Psyllium 1 PACKET PO (08:32)
[2020-07-16] MEDS: Aspirin E.C. 81 MG Tablet PO (08:34)
--- NOTE | 2020-07-16 08:45 | CASEMGMT ---
Social Work Therapy completed O2 testing with patient. On 5 LPM O2 at rest: 85% No O2 at rest 77% Upon exertion on 5LPM O2: 82% Upon exertion without O2: 72% Faxed testing to [facility] for qualification. Nayeli Reveles, DIGITAL PROJECT MANAGER MAINTENANCE MECHANIC SUPERVISOR
[2020-07-16] MEDS: Cyanocobalamin 500 MCG Tablet 1000 MCG PO (09:41)
[2020-07-16] MEDS: 0.9% Saline Lock 10 ML Syringe IV (09:45)
--- NOTE | 2020-07-16 14:15 | CASEMGMT ---
Social Work Attempted to complete MDS assessment with patient but she is unable to concentrate to answer questions. Nayeli Reveles, ADMISSIONS SUPERVISOR HOUSEKEEPING ASSISTANT
== END 2020-07-16 14:23 | disposition home health service (06) | DRG 292 ==
PROVIDERS: Admitting Provider Family Medicine Geriatric Medicine; PCP Internal Medicine; Referring Provider Family Medicine Geriatric Medicine; Visit Provider Family Medicine Geriatric Medicine
DX: I11.0 Hypertensive heart disease with heart failure (principal); G93.40 Encephalopathy, unspecified; I48.20 Chronic atrial fibrillation, unspecified; I50.43 Acute on chronic combined systolic (congestive) and diastolic (congestive) heart failure; I25.10 Atherosclerotic heart disease of native coronary artery without angina pectoris; F32.9 Major depressive disorder, single episode, unspecified; E03.9 Hypothyroidism, unspecified; E55.9 Vitamin D deficiency, unspecified; F41.9 Anxiety disorder, unspecified; F02.80 Dementia in other diseases classified elsewhere, unspecified severity, without behavioral disturbance, psychotic disturbance, mood disturbance, and anxiety; G30.9 Alzheimer's disease, unspecified; E87.6 Hypokalemia; I69.320 Aphasia following cerebral infarction
CPT/HCPCS: 36415; 71046; 80048; 81001; 85025; 85379; 87077; 87086; 87088; 87186; 87635; 92507; 92523; 92526; 92610; 94002; 94003; 94799; 97110; 97116; 97162; 97166; 97530; 97535; 97802; A4216; J1940; J7799; U0003

== ENCOUNTER 2020-07-17 05:59 | Inpatient (IN) | payer MEDICARE, OTHER, SELFPAY ==
[2020-06-19 12:52] VITALS: BMI 20.6
[2020-07-17] VITALS (41 sets, daily range): BP systolic 95–132; BP diastolic 50–123; PULSE 81–96; RESP 12–34; TEMP 36.3–37.7; O2SAT 30–100; BMI 19.6; BMI 19.7; BMI 19.8
[2020-07-17] MEDS: Etomidate 20 MG/10 ML Vial IV (06:25)
[2020-07-17] MEDS: Rocuronium Bromide 50 MG/5 ML Vial 40 MG IV (06:25)
--- NOTE | 2020-07-17 06:30 | RAD_ITS ---
HISTORY: sob, ET and OG tube placements ADDITIONAL HISTORY: None provided. EXAMINATION/TECHNIQUE: XR Chest 1 View AP/PA Number of images including paperwork: 1 COMPARISON: 07/12/2020 FINDINGS: LUNGS AND PLEURA: Extensive bilateral interstitial infiltrates appear similar given differences in lung volumes and technique. Blunting of the costophrenic angles. No pneumothorax. CARDIAC SILHOUETTE: Stable. MEDIASTINUM AND MARIO: Stable. UPPER ABDOMEN: Unremarkable. SKELETON AND SOFT TISSUES: No acute skeletal findings. Degenerative changes. OTHER DEVICES AND HARDWARE: Endotracheal tube tip 3.6 cm above the corwin. Gastric tube tip in the stomach. RAD/Chest 1 View (Portable) IMPRESSION: Endotracheal and gastric tube in place. No gross change in bilateral infiltrates. at 0654 Reported and signed by: Sharon Roldan MD Electronically Signed: Sharon Roldan MD at 6:54 EDT Tel , Service support ,
--- NOTE | 2020-07-17 06:30 | EKG12_ITS ---
Test Reason : UNRESPONSIVE Blood Pressure : / mmHG Vent. Rate : 091 BPM Atrial Rate : 091 BPM P-R Int : 096 ms QRS Dur : 180 ms QT Int : 466 ms P-R-T Axes : 079 -62 092 degrees QTc Int : 573 ms Sinus rhythm with short HI Left axis deviation Left bundle branch block Abnormal ECG Confirmed by KSENIA PARADA, HANDY ([id number]), news editor WILLIAM COOLEY ([id number]) on 07/23/2020 1:10:52 PM Referred By: ALLAN Confirmed By:STEVO MCCORMACK MD
--- NOTE | 2020-07-17 06:30 | ED.VIS.GEN ---
History of Present Illness Chief Complaint: Shortness of Breath Informant: Emotional Disabilities Teacher Limited by: Dementia, Stupor Narrative: 84-year-old female presenting by EMS unresponsive and hypoxic. Patient is unable to speak or give any history. Per the medical record she is a DNR CCA. Shortly after her arrival her showed up and stated that she became hypoxic overnight while on her BiPAP. She was initially satting in the 90s and he woke up and found her in the 70s. He called EMS. Patient was recently admitted to [facility] and treated. She did go to the TCU and was there for a couple of weeks. notes that over the last couple of weeks that her speech and communication skills have been worsening. He states that he was the visit so he could not observe her. He states that while he was on the phone with her sometimes she would trail off and hang up the phone. states that he was told that she was walking 80 feet with a walker and was doing well eating and drinking. She was discharged home with home health care. Upon arrival home he states that the patient was unable to do much of anything especially walk. She ate very little. He states that her speech was unintelligible. He states that 2 weeks prior to her admission to the hospital she was pretty high functioning although she did have some dementia. She was alert and oriented. She read the paper every day. 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 Lives: Spouse/ Significant Other Smoking Status: Never smoker Alcohol: None Drugs: None - Family History Maternal Family History: Family History (Last Reviewed 03/30/20 @ 14:[address] Gary Bullard MD) Grandmother Diabetes Family History: Reports: No pertinent history Paternal Family History: Family History (Last Reviewed 03/30/20 @ 14:[address] Gary Bullard MD) Grandmother Diabetes Family History: Reports: No pertinent history Review of Systems ROS: Unable to Obtain Physical Exam Vital Signs/Narrative: Vital Signs Temp Pulse Resp BP Pulse Ox 07/17/20 06:14 32 H 119/76 98 07/17/20 06:00 97.5 F L 96 22 H 132/123 H Inital Vital Signs reviewed: Yes General: Cachectic, Acute Distress Head: Normocephalic, Atraumatic Eyes: Perrl, EOMI ENT: Dry mucous membranes Cardiovascular: Regular rate, Regular rhythm Respiratory: - - Diminished air movement throughout with worsening at the bases. Bibasilar crackles. No wheezing. Abdomen: Soft Extremities: Nontender, No edema Skin: Normal color, No rash. Negative for: Cyanosis Neurological: Stupor Diagnostic/Tx/Re-eval Clinical Impression(s) from Imaging Studies Chest X-Ray 07/17/20 06:30 IMPRESSION: Endotracheal and gastric tube in place. No gross change in bilateral infiltrates. at 0654 Reported and signed by: Sharon Roldan MD Electronically Signed: Sharon Roldan MD at 6:54 EDT Tel , Service support , Laboratory Data 07/17/20 07/17/20 07/17/20 06:10 06:10 06:10 WBC 9.4 RBC 3.57 L Hgb 10.0 L Hct 33.8 L MCV 94.7 MCH 28.0 MCHC 29.6 L RDW Std Deviation 63.0 H RDW Coeff of Silvano 18.6 H Plt Count 359 MPV 11.6 Immature Gran % (Auto) 0.500 Neut % (Auto) 79.7 H Lymph % (Auto) 8.1 L [place] % (Auto) 3.3 Eos % (Auto) 8.1 H Baso % (Auto) 0.3 Absolute Neuts (auto) 7.5 Absolute Lymphs (auto) 0.76 L Nucleated RBC % 3.0 PT 20.5 H INR 1.8 APTT 29.7 Sodium 159 H Potassium 4.8 Chloride 125 H Carbon Dioxide 28.0 Anion Gap 6 BUN 60 H Creatinine 2.08 H Estim Creat Clear Calc 16.06 Est GFR (MDRD) Af Amer 29 L Est GFR (MDRD) Non-Af 24 L BUN/Creatinine Ratio 28.8 H Glucose 106 Lactic Acid Calcium 9.3 Total Bilirubin 0.70 AST 83 H ALT 66 H Alkaline Phosphatase 114 Total Protein 6.7 Albumin 2.2 L Globulin 4.5 H Albumin/Globulin Ratio 0.5 L Urine Color Urine Clarity Urine pH Ur Specific [place] Urine Protein Urine Glucose (UA) Urine Ketones Urine Occult Blood Urine Nitrite Urine Bilirubin Urine Urobilinogen Ur Leukocyte Esterase Urine RBC Urine WBC Ur Squamous Epith Cells Urine Bacteria Urine Mucus 07/17/20 07/17/20 06:10 06:35 WBC RBC Hgb Hct MCV MCH MCHC RDW Std Deviation RDW Coeff of Silvano Plt Count MPV Immature Gran % (Auto) Neut % (Auto) Lymph % (Auto) [place] % (Auto) Eos % (Auto) Baso % (Auto) Absolute Neuts (auto) Absolute Lymphs (auto) Nucleated RBC % PT INR APTT Sodium Potassium Chloride Carbon Dioxide Anion Gap BUN Creatinine Estim Creat Clear Calc Est GFR (MDRD) Af Amer Est GFR (MDRD) Non-Af BUN/Creatinine Ratio Glucose Lactic Acid 1.7 Calcium Total Bilirubin AST ALT Alkaline Phosphatase Total Protein Albumin Globulin Albumin/Globulin Ratio Urine Color Yellow Urine Clarity Clear Urine pH 7.0 Ur Specific [place] 1.010 Urine Protein 15 H Urine Glucose (UA) Normal Urine Ketones Negative Urine Occult Blood Negative Urine Nitrite Negative Urine Bilirubin 1 H Urine Urobilinogen 1 H Ur Leukocyte Esterase 25 H Urine RBC 0 SEEN Urine WBC 0-5 SEEN Ur Squamous Epith Cells 0 SEEN Urine Bacteria 0 SEEN Urine Mucus 0 SEEN - Rhythm Strip Rhythm Strip: Sinus Rhythm Rate: 91 - EKG Initial EKG Interpretation: Sinus Rhythm, LBBB Prior: Unchanged - Medical Decision Making 84-year-old female presenting with altered mental status, hypoxia. Initially she was DNR CCA however after discussion with the he wished her to be intubated until we can figure out if there was a reversible cause for her condition. She was intubated with glide scope on first pass. 22 at the lips. Endotracheal intubation is confirmed. Patient sedated with 40 of rocuronium and 20 of etomidate. She is placed on a fentanyl drip. Patient's lab work shows no leukocytosis. Her hemoglobin is stable. Her creatinine is slightly worse and her BUN/creatinine ratio is higher. She is hypernatremic as well. She was given a small amount of IV fluids but due to her CHF we did not give her 30/kg. She was pancultured. Urinalysis is negative. Chest x-ray shows bilateral infiltrates however it appears to be like this on previous x-rays over the last month. Per discussion with the hospitalist he wanted to hold antibiotics at this time. Patient was tested for COVID due to going to the ICU. This test is pending on admission. CT brain is pending. Dr. Thompson will follow this prior to patient going to the floor. I had a long discussion with the that if there were no subtle causes for her illness that likely we would need to discuss hospice care again versus DNR CC status. He did acknowledge understanding of this. Impression: 1. Hypoxia 2. Encephalopathy - Critical Care Time Critical care time (excluding procedures): 30-74 minutes, Discussing w/Patient &/or Family/Screen Printing Paster, Discussing w/Consultants, Performing Direct Patient Care at Bedside ED Disposition - Plan for ED Patient:
--- NOTE | 2020-07-17 06:33 | CT_ITS ---
HISTORY: ALTERED MENTAL STATUS, LOW OXYGEN LEVELS 75%, HX-CVA, CHF, CARDIOMYOPATHY, A-FIB, DEMENTIA, BREAST CA ADDITIONAL HISTORY: None provided. COMPARISON: 06/15/2020 EXAMINATION/TECHNIQUE: CT Head or Brain W/O Contrast Injection. Axial, coronal and sagittal images. Number of images including paperwork: 233. A radiation dose optimization technique was used for this scan. FINDINGS: BRAIN: No acute hemorrhage or mass. No definite acute infarct; MRI more sensitive. White matter hypodensity is nonspecific but most commonly seen with chronic ischemic changes. Generalized atrophy. VENTRICULAR SYSTEM: No hydrocephalus. PARANASAL SINUSES AND MASTOIDS: No air-fluid level in the imaged extent. ORBITS: Unremarkable imaged extent. SKELETON AND SOFT TISSUES: Calvarium intact. ASPECTS score: Not applicable. CT/Brain/Head without Contrast IMPRESSION: No acute intracranial abnormality. Chronic involutional and white matter changes. Individualized dose optimization techniques were used for this CT. at 0744 Reported and signed by: Sharon Roldan MD Electronically Signed: Sharon Roldan MD at 7:44 EDT Tel , Service support ,
--- NOTE | 2020-07-17 06:36 | CPS ---
Dr. Munguia gave verbal order for BiPAP set-up on pt. in ED
[2020-07-17 06:42] LABS: Absolute Lymphocyte Count 0.76 X10^3/uL (0.83-4.51); Absolute Neutrophil Count 7.5 X10^3/uL (2.0-7.7); Basophil# 0.03 X10^3/uL; Basophil% 0.3 % (0-1); Eosinophil# 0.76 X10^3/uL; Eosinophils% 8.1 % (0-5); Hematocrit 33.8 % (37-47); Lymphocyte # 0.76 X10^3/ul (4.0); Lymphocyte % 8.1 % (19-41); Mean Corp Hgb Conc 29.6 g/dL (32-36); Mean Corpuscular Volume 94.7 fL (81-99); Mean Platelet Vol. 11.6 fl (6.2-12.0); Monocyte# 0.31 X10^3/uL; Monocyte% 3.3 % (0-10); Neutrophil # 7.51 X10^3/uL (2.7-7.7); Neutrophil % 79.7 % (47-70); Platelet Count 359 K/mm3 (150-450); RBC Distribution Width CV 18.6 % (11.6-14.6); Red Blood Count 3.57 M/mm3 (4.2-5.4); White Blood Count 9.4 K/mm3 (4.4-11.0)
[2020-07-17 06:46] LABS: International Normalized Ratio 1.8; Prothrombin Time (Protime)PT. 20.5 SECONDS (11.7-14.9)
[2020-07-17 06:47] LABS: Partial Thromboplast Time 29.7 Seconds (24.1-36.2)
[2020-07-17 06:47] LABS: Color, Urine Yellow (Yellow); Glucose, Dipstick Normal (Normal); Ketone-Dipstick Negative (Negative); Leukocyte Esterase-Dipstick 25 /ul (Negative); Nitrite-Dipstick Negative (Negative); Occult Blood-Urine Negative /ul (Negative); Protein-Dipstick 15 mg/dl (Negative); Urine Clarity Clear (Clear); Urine Urobilinogen 1 mg/dl (Normal)
[2020-07-17 06:48] LABS: Bacteria 0 SEEN /hpf (None Seen); Mucous, Urine 0 SEEN /hpf (<or=2+); Red Blood Cells-Urine 0 SEEN /hpf (0-5); Squamous Epithelial Cells - UA 0 SEEN /hpf (5-10)
[2020-07-17 06:49] LABS: Urine Bilirubin Dipstick 1 mg/dL (Negative)
[2020-07-17 06:54] LABS: White Blood Cells 0-5 SEEN /hpf (0-5)
[2020-07-17 06:57] LABS: ALB/GLOB Ratio 0.5 RATIO (0.9-2.4); AST(SGOT) 83 U/L (15-37); Alanine Aminotransfer ALT/SGPT 66 U/L (13-56); Albumin, Serum 2.2 g/dL (3.2-5.0); Alkaline Phosphatase 114 U/L (45-117); Anion Gap 6 (5-15); BUN 60 mg/dL (7-18); BUN/Creat Ratio 28.8 RATIO (10-20); Calcium,Total 9.3 mg/dL (8.5-10.1); Chloride 125 mmol/L (98-107); Creatinine, Serum 2.08 mg/dL (0.55-1.02); EST Glomerular Filtration Rate 24 mL/min (>60); Est Glom Filt Rate - Afr Amer 29 mL/min (>60); Estimated Creatinine Clearance 16.06 ml/min; Globulin 4.5 g/dL (2.2-4.2); Glucose 106 mg/dL (74-106); Lactic Acid 1.7 mmol/L (0.4-1.9); Potassium 4.8 mmol/L (3.5-5.1); Protein, Total 6.7 g/dL (6.4-8.2); Sodium Level 159 mmol/L (136-145)
[2020-07-17 08:05] LABS: Probe Check PASS; Specimen Processing Control PASS
--- NOTE | 2020-07-17 08:49 | ECHOD_ITS ---
Reason For Study: Dyspnea/SOB Procedure This was a 2D Doppler, Color Flow transthoracic echocardiogram. The study was technically difficult. Patient on a vent. Exam performed portable in ICU/CCU. Left Ventricle Moderately dilated left ventricle. Severe global left ventricular systolic dysfunction. The estimated ejection fraction is 20 %. Unable to assess diastolic dysfunction. Right Ventricle Normal RV size. Normal systolic function. Atria The left atrium is mildly enlarged. Normal right atrium. No doppler evidence for ASD. Mitral Valve There is no mitral annular calcification. Mild diffuse mitral valve thickening. The mitral valve chordae are thickened and/or calcified. Mild-Moderate (1-2+) mitral valve insufficiency. Tricuspid Valve Normal tricuspid valve. Mild to moderate (1-2+) tricuspid valve insufficiency. Right ventricular systolic pressure estimated to be 40 mmHg. Aortic Valve Trisinus/trileaflet aortic valve. Mild diffuse aortic valve thickening. Trivial aortic valve insufficiency. Pulmonic Valve The pulmonic valve is not well visualized. Great Vessels Normal sized aortic root. Pericardium/Pleural No pericardial effusion. MMode/2D Measurements & Calculations LVIDd: 5.6 cm IVSd: 0.90 cm Ao root diam: 2.7 cm LVIDs: 4.9 cm LVPWd: 0.99 cm LA dimension: 4.5 cm RVDd: 3.3 cm FS: 12.9 % LAV(MOD-bp): 57.8 ml LA A4 area: 15.3 cm2 RA A4 area: 14.4 cm2 LAV(MOD-bp) Indexed: 39.4 ml/m2 LAV(MOD-sp2): 57.5 ml LAV(MOD-sp4): 43.5 ml Doppler Measurements & Calculations MV E max eric: 87.2 cm/sec Ao V2 max: 109.7 cm/sec LV V1 max: 79.6 cm/sec Ao max P.8 mmHg LV V1 max P.5 mmHg PA V2 max: 47.5 cm/sec TR max eric: 283.6 cm/sec TR max P.2 mmHg Interpretation Summary The study was technically difficult. Moderately dilated left ventricle. Severe global left ventricular systolic dysfunction. The estimated ejection fraction is 20 %. The left atrium is mildly enlarged. Mild diffuse mitral valve thickening. The mitral valve chordae are thickened and/or calcified. Mild-Moderate (1-2+) mitral valve insufficiency. Mild to moderate (1-2+) tricuspid valve insufficiency. Mild diffuse aortic valve thickening. Trivial aortic valve insufficiency. Right ventricular systolic pressure estimated to be 40 mmHg. Unable to assess diastolic dysfunction. Ordering Physician: Ben Benjamin Performed By: Demarco Nielsen RCS
--- NOTE | 2020-07-17 09:07 | PCM.CON.CC ---
Problem List (1) Respiratory failure Status: Acute (2) Encephalopathy Status: Chronic (3) Acute on chronic systolic (congestive) heart failure Status: Chronic (4) Alzheimer disease Status: Chronic (5) Atrial fibrillation Status: Chronic (6) Hypertension Status: Chronic (7) Hypothyroidism Status: Chronic (8) Depression Status: Chronic (9) Failure to thrive Status: Chronic (10) Non-ischemic cardiomyopathy Status: Chronic (11) Essential (primary) hypertension Status: Chronic (12) CVA (cerebral vascular accident) Status: Chronic Comment: Expressive aphasia (13) History of breast cancer Status: Chronic Reason for Consult Date of Consultation: 07/17/20 Reason for Consultation: Respiratory failure History of Present Illness: The patient is an 84 year old F, with past medical history listed below, who presented to [facility] on 07/17/2020 via EMS secondary to being unresponsive and hypoxic. Patient reportedly was a DNR Comfort Care arrest after discharge from the TCU. Patient has been in TCU for 3 weeks and was discharged yesterday. Patient reportedly became hypoxic overnight while on her BiPAP. reports that she was in the 90s when she went to sleep and found her in the 70s. Patient reportedly was unable to walk and ate very little when she first came home. Speech was relatively unintelligible. Patient does have some baseline dementia, but thought that her mentation on discharge from the TCU was much worse than previous. On arrival to the ER, there was a discussion with the about goals of therapy. elected for intubation to see if there are reversible causes to her condition. Patient was given rapid sequence intubation and tolerated it well. Shortly after intubation, patient's hemodynamics improved and she was rapidly weaned to minimal vent settings. Patient did not receive a significant fluid bolus secondary to a history of congestive heart failure. Chest x-ray showed bilateral infiltrates, but otherwise laboratory work-up was relatively unremarkable except for some renal dysfunction with a BUN of 60 and creatinine of 2.08. INR was slightly elevated at 1.8, but the patient does take Eliquis at baseline. Patient is currently intubated and unable to provide any additional information. Old records were reviewed. Patient reportedly had marginal mental status while in the TCU. Patient does carry a diagnosis of dementia and has been seen by Dr. Escalona as an outpatient. Patient has had recurrent bilateral infiltrates that have resolved. Unable to obtain review of systems. Per case management, there were discussions about discharging patient to hospice therapy, but this was refused by the . Past Medical History Past Medical History (Chronic Problems): Chronic Problems (Last Reviewed 03/30/20 @ 14:[address] Gary Bullard MD) Encephalopathy (Chronic) Weakness (Chronic) Acute on chronic systolic (congestive) heart failure (Chronic) Alzheimer disease (Chronic) Atrial fibrillation (Chronic) Hypertension (Chronic) Breast cancer (Chronic) Hypothyroidism (Chronic) Hypokalemia (Chronic) Depression (Chronic) Acute on chronic combined systolic and d (Chronic) Failure to thrive (Chronic) Chronic combined systolic and diastolic CHF (congestive heart failure) (Chronic) Non-ischemic cardiomyopathy (Chronic) Paroxysmal atrial fibrillation (Chronic) Left bundle branch block (LBBB) (Chronic) Essential (primary) hypertension (Chronic) CVA (cerebral vascular accident) (Chronic) Expressive aphasia History of breast cancer (Chronic) 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 Gary Bullard MD) Chronic combined systolic and diastolic CHF (congestive heart failure) (Chronic) I50.42 Non-ischemic cardiomyopathy (Chronic) I42.8 Paroxysmal atrial fibrillation (Chronic) I48.0 Left bundle branch block (LBBB) (Chronic) I44.7 Essential (primary) hypertension (Chronic) I10 CVA (cerebral vascular accident) (Chronic) I63.9 Expressive aphasia History of breast cancer (Chronic) Z85.3 Debility (Acute) R53.81 Acute hypoxemic respiratory failure J96.01 Dementia F03.90 Expressive aphasia R47.01 Hypothyroidism E03.9 Breast cancer C50.919 Kidney stone N20.0 Left ureteral calculus N20.1 Vascular dementia F01.50 Secondary pulmonary arterial hypertension (Inactive) I27.21 Allergies Penicillins [PCN] Allergy (Verified 07/17/20 07:09) Rash Home Medications: Ambulatory Orders Medication Instructions Recorded cyclobenzaprine 5 mg tablet 5 mg PO BID tab 05/30/19 Calcium Citrate/Vitamin D3 1 tab PO TIDCM 08/19/19 [Calcium Cit 315-Vit D3 200 Tab] Cholecalciferol (Vitamin D3) 2,000 unit PO DAILY 08/19/19 [D3-1999] Levothyroxine Sodium [Levoxyl] 50 mcg PO DAILY 08/19/19 Memantine Hydrochloride [Namenda] 10 mg PO BID 08/19/19 amiodarone 200 mg tablet 200 mg PO DAILY #90 tab 09/26/19 aspirin 81 mg tablet,delayed 81 mg PO DAILY 09/26/19 release docusate sodium 100 mg capsule 200 mg PO DAILY cap 09/26/19 polyethylene glycol 3350 17 2.5 ml PO QHS PRN PRN 12/13/19 gram/dose oral powder Apixaban [Eliquis] 2.5 mg PO BID 02/17/20 Cyanocobalamin [Vitamin B12] 1,000 mcg PO DAILY@0800 02/17/20 Dymista 1 puff NASAL BID PRN PRN 02/17/20 Psyllium [Metamucil] 10 ml PO DAILY 02/17/20 duloxetine 40 mg capsule,delayed 40 mg PO DAILY 03/30/20 release sprinkle Tramadol HCl 100 mg PO BID 06/15/20 Albuterol Aerosols [Ventolin 2.5 mg INHALATION Q2H PRN PRN 06/19/20 Aerosols] vial.neb. Furosemide [Lasix] 40 mg PO DAILY 06/19/20 Polyethylene Glycol 3350 [Miralax] 17 gm PO DAILY 06/19/20 Potassium Chloride [K-Dur] 40 meq PO DAILYCM 06/19/20 Azelastine HCl [Astelin] 1 spray NASAL BID PRN nasal.sry 07/05/20 Fluticasone 0.05% [Flonase Nasal 1 spray NASAL BID PRN nasal.sry 07/05/20 [place]] Peg 400/Hypromellose/Glycerin 2 drp EACH EYE Q1H PRN bottle 07/05/20 [Artificial Tears] Ensure Enlive 120 ml PO 4X/DAY 07/17/20 Menthol/Lanolin/Calamine/Znox 1 applic TOPICAL 0600,2200 07/17/20 [Calmoseptine Ointment] Mirtazapine [Remeron] 7.5 mg PO QHS 07/17/20 Surgical History: Surgical History (Last Reviewed 03/30/20 @ 14:[address] Gary Bullard MD) H/O right mastectomy Z90.11 S/P ureteral stent placement Onset Date: 10/19/19 Z96.0 Surgical History: appendectomy, cataract, mastectomy - Right., - - Lumpectomy, tubal ligation, right breast mass biopsy. Psychiatric History: Depression CONFERENCE INTERPRETER History: No pertinent CONFERENCE INTERPRETER history Lives: Spouse/ Significant Other Smoking Status: Never smoker Alcohol: None Drugs: None - *Family History Maternal Family History: Family History (Last Reviewed 03/30/20 @ 14:[address] Gary Bullard MD) Grandmother Diabetes History Items: No pertinent history Paternal Family History: Family History (Last Reviewed 03/30/20 @ 14:[address] Gary Bullard MD) Grandmother Diabetes History Items: No pertinent history Review of Systems Unable to obtain accurate/complete ROS d/t: See HPI Patient Problems: Active and Suspected Problems (Last Reviewed 03/30/20 @ 14:[address] Gary Bullard MD) Respiratory failure (Acute) Objective: Chest x-ray was personally reviewed and shows bilateral infiltrates. - Physical Exam Vitals/I&O's: Vital Signs Temp Pulse Resp BP Pulse Ox 36.9 C 92 13 119/70 97 07/17/20 08:07 07/17/20 08:48 07/17/20 08:05 07/17/20 08:05 07/17/20 08:05 Oxygen Flow Rate (L/min) 15 Oxygen Delivery Method Mechanical Ventilator Weight: 48.8 kg Body Mass Index (BMI) 19.6 Intake and Output for Last 24 Hours 07/15/20 07/16/20 07/17/20 23:59 23:59 23:59 Intake Total 3.13 / 3.13 Balance 3.13 / 3.13 General: - - Intubated and paralyzed. Appears frail and older than stated age. Good vent synchrony noted. HEENT: Atraumatic, Normocephalic, - - No scleral icterus or injection noted Oral: No Gingival or Mucosal Lesions/ Ulcerations, Dry Mucosa Neck: Supple, No JVD, No Nodes, Trachea Midline Lungs: No wheeze, No rales, Diminished, Rhonchi - Bilateral, - - Symmetric expansion Cardiovascular: Regular rate, Regular Rhythm, Normal S1, Normal S2, No murmurs, No rub noted, No Gallop Abdomen: Bowel Sounds Present, Soft, Non Tender, Non-Distended Extremities: No clubbing, No cyanosis, No edema Skin: No rashes, No breakdown Musculoskeletal: No Tenderness to Palpation of Joints or Extremities Lymphatic: No Cervical, Supraclavicular, or Inguinal Adenopathy Neurological: - - Currently paralyzed. Mild voluntary movements of the extremities Psych/Mental Status: Flat Affect Laboratory Results 07/17/20 06:10: WBC 9.4, RBC 3.57 L, Hgb 10.0 L, Hct 33.8 L, MCV 94.7, MCH 28.0, MCHC 29.6 L, RDW Std Deviation 63.0 H, RDW Coeff of Silvano 18.6 H, Plt Count 359, MPV 11.6, Immature Gran % (Auto) 0.500, Neut % (Auto) 79.7 H, Lymph % (Auto) 8.1 L, Desha % (Auto) 3.3, Eos % (Auto) 8.1 H, Baso % (Auto) 0.3, Absolute Neuts (auto) 7.5, Absolute Lymphs (auto) 0.76 L, Nucleated RBC % 3.0 07/17/20 06:10: PT 20.5 H, INR 1.8, APTT 29.7 07/17/20 06:10: Sodium 159 H, Potassium 4.8, Chloride 125 H, Carbon Dioxide 28.0, Anion Gap 6, BUN 60 H, Creatinine 2.08 H, Estim Creat Clear Calc 16.06, Est GFR (MDRD) Af Amer 29 L, Est GFR (MDRD) Non-Af 24 L, BUN/Creatinine Ratio 28.8 H, Glucose 106, Calcium 9.3, Total Bilirubin 0.70, AST 83 H, ALT 66 H, Alkaline Phosphatase 114, Total Protein 6.7, Albumin 2.2 L, Globulin 4.5 H, Albumin/Globulin Ratio 0.5 L 07/17/20 06:10: Lactic Acid 1.7 07/17/20 06:35: Urine Color Yellow, Urine Clarity Clear, Urine pH 7.0, Ur Specific [place] 1.010, Urine Protein 15 H, Urine Glucose (UA) Normal, Urine Ketones Negative, Urine Occult Blood Negative, Urine Nitrite Negative, Urine Bilirubin 1 H, Urine Urobilinogen 1 H, Ur Leukocyte Esterase 25 H, Urine RBC 0 SEEN, Urine WBC 0-5 SEEN, Ur Squamous Epith Cells 0 SEEN, Urine Bacteria 0 SEEN, Urine Mucus 0 SEEN 07/17/20 07:00: COVID-19 (LYNETTE) Negative Current Medications Fentanyl Citrate 1,000 mcg/ (Sodium Chloride) 100 mls @ 2.5 mls/hr CONT INF .Q40H YARY; Protocol Last Titration: 07/17/20 08:19 Dose: 50 mcg/hr, 5 mls/hr Documented by: Sodium Chloride () 1,000 mls @ 100 mls/hr IV .Q10H YARY Sodium Chloride () 250 mls @ 15 mls/hr IV .[id number] PRN PRN Reason: Saline Flush Sodium Chloride () 250 mls @ 15 mls/hr IV .[id number] PRN PRN Reason: Additional IVPB Infusion Sodium Chloride () 10 - 40 ml IV UD PRN PRN Reason: SALINE FLUSH Clinical Impression(s) from Imaging Studies Chest X-Ray 07/17/20 06:30 IMPRESSION: Endotracheal and gastric tube in place. No gross change in bilateral infiltrates. at 0654 Reported and signed by: Sharon Roldan MD Electronically Signed: Sharon Roldan MD at 6:54 EDT Tel , Service support , Brain CT 07/17/20 06:33 IMPRESSION: No acute intracranial abnormality. Chronic involutional and white matter changes. Individualized dose optimization techniques were used for this CT. at 0744 Reported and signed by: Sharon Roldan MD Electronically Signed: Sharon Roldan MD at 7:44 EDT Tel , Service support , Assessment/Plan Active and Suspected Problems (Last Reviewed 03/30/20 @ 14:[address] Gary Bullard MD) Respiratory failure (Acute) RECOMMENDATIONS: 1. Continue ventilator management 2. Obtain echocardiogram and BNP 3. Wean oxygen as tolerated 4. Okay to start tube feeds 5. Spontaneous breathing and awakening trials per protocol IMPRESSIONS: 1. Acute on chronic hypoxic respiratory failure secondary to probable cor pulmonale/bronchiectasis Exact etiology is unclear at this time. Patient reportedly was significantly hypoxic while in the TCU and was discharged on 3 L nasal cannula. Patient with rapid recovery after intubation would be suggestive of pulmonary edema. Patient may have an element of cor pulmonale secondary to chronic hypoxia. We will continue with ventilator support for now. Patient is currently on anticoagulation, so pulmonary embolism is unlikely. Patient reportedly has not been responding to Lasix as well secondary to renal dysfunction. PRN albuterol would be reasonable. Do anticipate patient will need propofol for sedation in the future, but continue to monitor clinically on fentanyl drip. Patient does have bronchiectasis noted on previous CT scan, but without leukocytosis or purulent sputum, doubt bronchiectasis exacerbation leading to current situation. 2. Progressive dementia with failure to thrive Patient is on medical therapy at this time, but appears to have progressive decline over the course of weeks to months. Patient's CODE STATUS was reversed in the ER, but appears to be progressing with dementia. Patient has had very poor intake per dietitian. 3. Acute on chronic combined CHF/paroxysmal A. fib/hypertension Patient's last echocardiogram in 2019 showed an EF of 35% with stage II diastolic dysfunction. Patient has been difficult to control secondary to progressive renal dysfunction with diuretic therapy. It is unclear that a repeat echo will make significant changes clinically, but if there is a decline in function, this may help the with understanding the decompensation. Patient will be continued on current medications. Patient is on Eliquis therapy, so it is unlikely that pulmonary embolism is worsening pulmonary hypertension. 4. Central sleep apnea/hypothyroidism/depression/history of breast cancer/history of CVA/advanced age/debility Complicates care, management, recovery and prognosis. Central sleep apnea likely secondary to cardiac etiology. Patient will be continued on baseline medications. Poor prognosis from my perspective given decline. Will initiate tube feeds to see if this will help. We will have to monitor for refeeding syndrome with aggressive electrolyte replacement as indicated. Patient appears to be hospice appropriate from my perspective TIME: 35 minutes critical care time spent addressing patient's respiratory failure, CHF, review of all data and collaboration with care team (9 AM to 10 AM) [phone] Critical care first hour
[2020-07-17 09:10] LABS: Allen Test Positive; Base Excess 0 mmol/L (-2 to +2); Bicarbonate 23.6 mmol/L (22-26); Blood Gas Specimen Type ART; Mode AC; O2 Delivery Device Adult Vent; PO2 77 mmHG (75-100); SITE R Radial; SO2 96 % (95-99); Total Carbon Dioxide 25 mmol/L; pCO2 32.5 mmHg (35-45); pH 7.47 (7.35-7.45)
[2020-07-17] MEDS: 0.45% Normal Saline 1,000 ML 100 ML IV ×2 (10:07→19:12)
[2020-07-17 10:08] LABS: FI02 40; PEEP 5; RR 12; Vt 450
[2020-07-17] MEDS: Propofol 10MG/Ml 1,000 MG/100 ML Bottle 2.9 MG CONT INF (10:09)
--- NOTE | 2020-07-17 10:54 | CASEMGMT ---
Patient has a Healthcare Power of Milieu Coordinator and it is on file at [facility]. Her Healthcare Power of Milieu Coordinator is her Dragan. She does not have a Healthcare Living Will. Jimena MARIE
[2020-07-17 11:01] LABS: CPK Total, Creatine Kinase 50 U/L (26-192); Triglycerides 100 mg/dL
--- NOTE | 2020-07-17 11:43 | NT.THERAPY_ITS ---
Nutrition Therapy Report - History Nutrition Services has been consulted to:: Manage enteral nutrition Current diet / nutrition support order:: NPO - Anthropometric Measurements Height:: 5 ft 1.81 in Weight:: 48.8 kg Body Mass Index (BMI):: 19.8 - Relevant Labs Relevant Labs:: RBC 3.57 M/mm3 (4.2-5.4) L 07/17/20 06:10 Hgb 10.0 g/dL (12.0-15.0) L 07/17/20 06:10 Hct 33.8 % (37-47) L 07/17/20 06:10 MCHC 29.6 g/dL (32-36) L 07/17/20 06:10 RDW Std Deviation 63.0 fl (35.1-43.9) H 07/17/20 06:10 RDW Coeff of Silvano 18.6 % (11.6-14.6) H 07/17/20 06:10 Neut % (Auto) 79.7 % (47-70) H 07/17/20 06:10 Lymph % (Auto) 8.1 % (19-41) L 07/17/20 06:10 Eos % (Auto) 8.1 % (0-5) H 07/17/20 06:10 Absolute Lymphs (auto) 0.76 X10^3/uL (0.83-4.51) L 07/17/20 06:10 PT 20.5 SECONDS (11.7-14.9) H 07/17/20 06:10 Sodium 159 mmol/L (136-145) H 07/17/20 06:10 Chloride 125 mmol/L (98-107) H 07/17/20 06:10 BUN 60 mg/dL (7-18) H 07/17/20 06:10 Creatinine 2.08 mg/dL (0.55-1.02) H 07/17/20 06:10 Est GFR (MDRD) Af Amer 29 mL/min (>60) L 07/17/20 06:10 Est GFR (MDRD) Non-Af 24 mL/min (>60) L 07/17/20 06:10 BUN/Creatinine Ratio 28.8 RATIO (10-20) H 07/17/20 06:10 AST 83 U/L (15-37) H 07/17/20 06:10 ALT 66 U/L (13-56) H 07/17/20 06:10 B-Natriuretic Peptide 1840.2 pg/mL (0-100) H 07/17/20 06:55 Albumin 2.2 g/dL (3.2-5.0) L 07/17/20 06:10 Globulin 4.5 g/dL (2.2-4.2) H 07/17/20 06:10 Albumin/Globulin Ratio 0.5 RATIO (0.9-2.4) L 07/17/20 06:10 - Assessment Food / Nutrition-Related History:: Discussed in ICU rounds. Pt is currently intubated, OG in place. Pt was discharged from [facility] TCU yesterday. Per TCU documentation, pt w/ variable PO intake- refusing meals or eating poorly most times. 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 Review of wts available in EMR- was 54.9kg on 02/21/20 and CBW 48.8kg- 6.1kg/11% wt loss <6 months, significant for malnutrition. No recent wt changes noted over past 1 month during TCU admission. Per rounds, OK to start enteral nutrition support via OG. - Nutrition Diagnosis Problem / Etiology / Signs & Symptoms (PES):: Chronic, severe malnutrition related to inadequate energy intake as evidenced by 6.1kg/11% wt loss <6 months, documented PO intake to be <75% of estimated nutritional needs over last 1 month, with noted refusal of PO nutrition at multiple meals. Evidence of Malnutrition Exists:: Yes Severe PCM:: Chronic Illness - Nutrition Intervention Nutrition Prescription:: [id number] calories/day; 63-73 g protein/day (full energy requirements) - Food / Nutrient Delivery Interventions Summary of nutrition intervention:: Pt w/ significant risk factors for refeeding syndrome (unintentional wt loss >10% x 6 months, <75% estimated energy requirements >1 month, hx of dysphagia, failure to thrive, malnutrition, dementia, advanced age). Will follow guidelines for RFS prevention: 15 calories/kg (15-20% from protein) for first 24 hours of nutrition support. Nutrition support ordered as / adjusted to:: Will order Vital AF 1.2 at 25mL/hour w/ 125mL flush every 4 hours to provide 720 calories, 45 g protein, and 1236mL total fluid/day. RDN will monitor tolerance of nutrition support, particularly as pt is at risk for refeeding syndrome, and advance tube feeds as indicated. Recommend thiamine supplement. - MNT Monitoring Further MNT monitoring and evaluation required?: Yes - Will monitor daily wt, electrolytes, TF tolerance MNT Follow-up in:: 1-2 days
--- NOTE | 2020-07-17 13:00 | CASEMGMT ---
Readmission chart review: Pt was initially admitted 06/15-06/19/2020 for CHF, resp failure and was dispositioned to TCU at that time. Pt was discharged from the TCU on 07/16/2020 at 1422 on 5liters mo thru [facility] but according to testing done in TCU prior to discharge, this did not seem to be an adequate flow. During TCU visit, pt's disposition changed multiple times from HHC to SNF to AL to Home with hospice and pt ended up going home with without hospice and with nonskilled HHC. Therapy in TCU had been recommending SNF at discharge. Pt was then brought back to [facility] ED on 07/17/2020 at 0600 via EMS because her found her sat at 75% on her bipap. Pt was a DNRCCA but chose to revoke at that time and pt was placed on the vent and admitted to the ICU. Pt has a hx of dementia and according to documentation has been declining over the last several months. Per Dr. Benjamin's note, he feels that pt is hospice appropriate at this time. CM to follow for any further discharge planning/needs. Minesh BONE CM
[2020-07-17] MEDS: Vital AF 1.2 Cal Liquid 1,000 ML 25 ML GT (14:46)
--- NOTE | 2020-07-17 17:12 | HP.PCM_ITS ---
History of Present Illness Date of Admission: 07/17/20 Chief Complaint: Hypoxia and altered mental status The patient is a 84 year old F with PMH as below who presents from home with a acute onset of hypoxia and altered mental status. Based on my evaluation she was already intubated so most of the information was obtained from chart review. She was recently admitted to the hospital and was transferred to the transitional care unit where the states that he was told she was doing well and was discharged home yesterday being able to walk. He states that what he found was when she came home she was unable to walk or take care of her self. Overnight she was wearing her CPAP and became acutely hypoxic which is when he brought her into the hospital. She was a DNR CCA however in discussion with the ED physician went ahead and intubated her as the felt that that would at least give us time to figure out why she was becoming hypoxic. She is anticoagulated on appropriate dose of Eliquis therefore does not seem that PE is likely. She does have recurrence of her bilateral pulmonary infiltrates which she had been evaluated for little over 2 years ago by pulmonology as an outpatient. At that time they had resolved. According to the , about 2 weeks ago while in the TCU she did have another spontaneous episode of acute hypoxia that resolved on its own. In the ER she was found to be hypoxic into the 70s and therefore was intubated, she was also found to be dehydrated with an elevated creatinine and hyponatremia to 159. Also her BNP was elevated though it is chronically elevated and I would expect it to be even more elevated secondary to her acute kidney disease. She has had 3 COVID tests within the last month all of which were negative. Past Medical History Past Medical History (Chronic Problems): Chronic Problems (Last Reviewed 03/30/20 @ 14:[address] Gary Bullard MD) Encephalopathy (Chronic) Weakness (Chronic) Acute on chronic systolic (congestive) heart failure (Chronic) Alzheimer disease (Chronic) Atrial fibrillation (Chronic) Hypertension (Chronic) Breast cancer (Chronic) Hypothyroidism (Chronic) Hypokalemia (Chronic) Depression (Chronic) Acute on chronic combined systolic and d (Chronic) Failure to thrive (Chronic) Chronic combined systolic and diastolic CHF (congestive heart failure) (Chronic) Non-ischemic cardiomyopathy (Chronic) Paroxysmal atrial fibrillation (Chronic) Left bundle branch block (LBBB) (Chronic) Essential (primary) hypertension (Chronic) CVA (cerebral vascular accident) (Chronic) Expressive aphasia History of breast cancer (Chronic) 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 (Chronic) Medical History: Medical History (Last Reviewed 03/30/20 @ 14:[address] Gary Bullard MD) Chronic combined systolic and diastolic CHF (congestive heart failure) (Chronic) I50.42 Non-ischemic cardiomyopathy (Chronic) I42.8 Paroxysmal atrial fibrillation (Chronic) I48.0 Left bundle branch block (LBBB) (Chronic) I44.7 Essential (primary) hypertension (Chronic) I10 CVA (cerebral vascular accident) (Chronic) I63.9 Expressive aphasia History of breast cancer (Chronic) Z85.3 Debility (Acute) R53.81 Acute hypoxemic respiratory failure J96.01 Dementia F03.90 Expressive aphasia R47.01 Hypothyroidism E03.9 Breast cancer C50.919 Kidney stone N20.0 Left ureteral calculus N20.1 Vascular dementia F01.50 Secondary pulmonary arterial hypertension (Inactive) I27.21 Allergies Penicillins [PCN] Allergy (Verified 07/17/20 07:09) Rash Home Medications: Ambulatory Orders Medication Instructions Recorded cyclobenzaprine 5 mg tablet 5 mg PO BID tab 05/30/19 Calcium Citrate/Vitamin D3 1 tab PO TIDCM 08/19/19 [Calcium Cit 315-Vit D3 200 Tab] Cholecalciferol (Vitamin D3) 2,000 unit PO DAILY 08/19/19 [D3-2000] Levothyroxine Sodium [Levoxyl] 50 mcg PO DAILY 08/19/19 Memantine Hydrochloride [Namenda] 10 mg PO BID 08/19/19 amiodarone 200 mg tablet 200 mg PO DAILY #90 tab 09/26/19 aspirin 81 mg tablet,delayed 81 mg PO DAILY 09/26/19 release docusate sodium 100 mg capsule 200 mg PO DAILY cap 09/26/19 polyethylene glycol 3350 17 2.5 ml PO QHS PRN PRN 12/13/19 gram/dose oral powder Apixaban [Eliquis] 2.5 mg PO BID 02/17/20 Cyanocobalamin [Vitamin B12] 1,000 mcg PO DAILY@0800 02/17/20 Dymista 1 puff NASAL BID PRN PRN 02/17/20 Psyllium [Metamucil] 10 ml PO DAILY 02/17/20 duloxetine 40 mg capsule,delayed 40 mg PO DAILY 03/30/20 release sprinkle Tramadol HCl 100 mg PO BID 06/15/20 Albuterol Aerosols [Ventolin 2.5 mg INHALATION Q2H PRN PRN 06/19/20 Aerosols] vial.neb. Furosemide [Lasix] 40 mg PO DAILY 06/19/20 Polyethylene Glycol 3350 [Miralax] 17 gm PO DAILY 06/19/20 Potassium Chloride [K-Dur] 40 meq PO DAILYCM 06/19/20 Azelastine HCl [Astelin] 1 spray NASAL BID PRN nasal.sry 07/05/20 Fluticasone 0.05% [Flonase Nasal 1 spray NASAL BID PRN nasal.sry 07/05/20 [place]] Peg 400/Hypromellose/Glycerin 2 drp EACH EYE Q1H PRN bottle 07/05/20 [Artificial Tears] Ensure Enlive 120 ml PO 4X/DAY 07/17/20 Menthol/Lanolin/Calamine/Znox 1 applic TOPICAL 0600,2200 07/17/20 [Calmoseptine Ointment] Mirtazapine [Remeron] 7.5 mg PO QHS 07/17/20 Surgical History: Surgical History (Last Reviewed 03/30/20 @ 14:[address] Gary Blulard MD) H/O right mastectomy Z90.11 S/P ureteral stent placement Onset Date: 08/20/19 Z96.0 Surgical History: appendectomy, cataract, mastectomy - Right., - - Lumpectomy, tubal ligation, right breast mass biopsy. 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 Gary Bullard MD) Grandmother Diabetes History Items: No pertinent history Paternal Family History: Family History (Last Reviewed 03/30/20 @ 14:[address] Gary Bullard MD) Grandmother Diabetes History Items: No pertinent history Review of Systems Unable to obtain accurate/complete ROS d/t: Intubation and sedation VTE Information - Inpt Only VTE Present on Admission: No Patient Problems: Active and Suspected Problems (Last Reviewed 03/30/20 @ 14:[address] Gary Bullard MD) Respiratory failure (Acute) - Physical Exam Vitals/I&O's: Vital Signs Temp Pulse Resp BP Pulse Ox 98 F 90 12 97/68 97 07/17/20 16:00 07/17/20 16:33 07/17/20 16:33 07/17/20 16:00 07/17/20 16:33 Oxygen Flow Rate (L/min) 15 Oxygen Delivery Method Mechanical Ventilator Weight: 107 lb 9.369 oz Body Mass Index (BMI) 19.8 Intake and Output for Last 24 Hours 07/15/20 07/16/20 07/17/20 23:59 23:59 23:59 Intake Total 110.62 / 110.62 Output Total 400 / 400 Balance -289.38 / -289.38 General: - - Intubated and sedated HEENT: Atraumatic, PERRLA, Normocephalic Oral: Dry Mucosa Neck: Supple, No JVD Lungs: No wheeze, No rales, Diminished, Rhonchi Cardiovascular: Regular rate, Regular Rhythm, Normal S1, Normal S2, No murmurs Abdomen: Soft, Non-Distended, No Hepato-splenomegaly Extremities: No edema, Capillary Refill Less than 3 Seconds Skin: No rashes, No breakdown Neurological: - - Debated and sedated Psych/Mental Status: - - Intubated and sedated Laboratory Results 07/17/20 06:10: WBC 9.4, RBC 3.57 L, Hgb 10.0 L, Hct 33.8 L, MCV 94.7, MCH 28.0, MCHC 29.6 L, RDW Std Deviation 63.0 H, RDW Coeff of Silvano 18.6 H, Plt Count 359, MPV 11.6, Immature Gran % (Auto) 0.500, Neut % (Auto) 79.7 H, Lymph % (Auto) 8.1 L, [place] % (Auto) 3.3, Eos % (Auto) 8.1 H, Baso % (Auto) 0.3, Absolute Neuts (auto) 7.5, Absolute Lymphs (auto) 0.76 L, Nucleated RBC % 3.0 07/17/20 06:10: PT 20.5 H, INR 1.8, APTT 29.7 07/17/20 06:10: Sodium 159 H, Potassium 4.8, Chloride 125 H, Carbon Dioxide 28.0, Anion Gap 6, BUN 60 H, Creatinine 2.08 H, Estim Creat Clear Calc 16.06, Est GFR (MDRD) Af Amer 29 L, Est GFR (MDRD) Non-Af 24 L, BUN/Creatinine Ratio 28.8 H, Glucose 106, Calcium 9.3, Total Bilirubin 0.70, AST 83 H, ALT 66 H, Alkaline Phosphatase 114, Total Protein 6.7, Albumin 2.2 L, Globulin 4.5 H, Albumin/Globulin Ratio 0.5 L 07/17/20 06:10: Lactic Acid 1.7 07/17/20 06:10: Total Creatine Kinase 50, Triglycerides 100 07/17/20 06:35: Urine Color Yellow, Urine Clarity Clear, Urine pH 7.0, Ur Specific [place] 1.010, Urine Protein 15 H, Urine Glucose (UA) Normal, Urine Ketones Negative, Urine Occult Blood Negative, Urine Nitrite Negative, Urine Bilirubin 1 H, Urine Urobilinogen 1 H, Ur Leukocyte Esterase 25 H, Urine RBC 0 SEEN, Urine WBC 0-5 SEEN, Ur Squamous Epith Cells 0 SEEN, Urine Bacteria 0 SEEN, Urine Mucus 0 SEEN 07/17/20 06:55: B-Natriuretic Peptide 1840.2 H 07/17/20 07:00: COVID-19 (LYNETTE) Negative 07/17/20 08:58: Specimen Type ART, Sample Site R Radial, pH 7.47 H, Bicarbonate Actual 23.6, Total CO2 25, Base Excess 0, O2 Saturation 96, O2 % 40, ABG pCO2 32.5 L, ABG pO2 77, Jf Test Positive, Respiration Rate 12, O2 Delivery Device Adult Vent, Vent Mode AC, Tidal Volume 450, POC PEEP 5 Current Medications Fentanyl Citrate 1,000 mcg/ (Sodium Chloride) 100 mls @ 2.5 mls/hr CONT INF .Q40H YARY; Protocol Last Titration: 07/17/20 15:00 Dose: 50 mcg/hr, 5 mls/hr Documented by: Sodium Chloride () 1,000 mls @ 100 mls/hr IV .Q10H YARY Last Admin: 07/17/20 10:07 Dose: 100 mls/hr Documented by: Sodium Chloride () 250 mls @ 15 mls/hr IV .[id number] PRN PRN Reason: Saline Flush Sodium Chloride () 250 mls @ 15 mls/hr IV .[id number] PRN PRN Reason: Additional IVPB Infusion Propofol (Diprivan) 1,000 mg in 100 mls @ 2.928 mls/hr CONT INF .Q12H YARY; Protocol Last Titration: 07/17/20 15:00 Dose: 10 mcg/kg/min, 2.9 mls/hr Documented by: Enteral Nutritional Formula (Vital Af 1.2 Raymond Liquid) 1,000 mls @ 25 mls/hr GT .Q40H YARY Last Admin: 07/17/20 14:46 Dose: 25 mls/hr Documented by: Sodium Chloride () 10 - 40 ml IV UD PRN PRN Reason: SALINE FLUSH Assessment/Plan All Active Problems (Last Reviewed 03/30/20 @ 14:[address] Gary Bullard MD) Respiratory failure (Acute) Debility (Acute) 1. Acute hypoxic respiratory failure secondary to bronchiectasis and possible cor pulmonale/central obstructive sleep apnea/KALEN on CKD 3/hypernatremia -Continue with intubation, CT scan of the chest was reviewed in January which showed the beginnings of a recurrence in her infiltrates - chest x-ray showed bilateral pulmonary infiltrates that are unchanged from ab out a month ago -Appreciate osteology teacher assistance -PE is unlikely secondary to her chronic Eliquis -If extubated she will need to be on CPAP at night -Baseline creatinine is around 1.3, and today she is 2.08 with sodium 159, will continue with half-normal saline at 100 2. Acute on chronic systolic and diastolic CHF/paroxysmal A. fib/HTN/HLD/history of CVA -Continue with her Eliquis as she has an OG in place -Also continue with her aspirin and amiodarone -Given her acute kidney injury and her hyponatremia, will hold off on Lasix for right now 3. Dementia/depression -We will continue with her Cymbalta, Namenda, Remeron -We will hold her Flexeril as this can also be contributing to her altered mental status secondary to her kidney disease 4. Hypothyroidism -Stable -Continue with Synthroid DVT: Eliquis Inpatient E&M: 30097 Init Hosp L3
[2020-07-17] MEDS: Chlorhexidine 15 ML PO (20:38)
[2020-07-17] MEDS: APIXABAN 2.5 MG TABLET PO (20:42)
[2020-07-17] MEDS: Memantine Hydrochloride 10 MG Tablet PO (20:42)
[2020-07-17] MEDS: Mirtazapine 15 MG Tablet 7.5 MG PO (20:42)
[2020-07-18] VITALS (40 sets, daily range): BP systolic 87–104; BP diastolic 44–67; PULSE 58–97; RESP 12–111; TEMP 36.9–38.6; O2SAT 91–100; BMI 20.5
[2020-07-18] MEDS: 0.9% Saline Lock 10 ML Syringe IV ×2 (04:00→05:19)
[2020-07-18 04:06] LABS: Absolute Lymphocyte Count 0.94 X10^3/uL (0.83-4.51); Absolute Neutrophil Count 7.9 X10^3/uL (2.0-7.7); Basophil# 0.08 X10^3/uL; Basophil% 0.8 % (0-1); Eosinophil# 1.08 X10^3/uL; Eosinophils% 10.3 % (0-5); Hematocrit 31.3 % (37-47); Hemoglobin 9.2 g/dL (12.0-15.0); Lymphocyte # 0.94 X10^3/ul (4.0); Mean Corp Hgb Conc 29.4 g/dL (32-36); Mean Corpuscular Volume 95.4 fL (81-99); Mean Platelet Vol. 11.4 fl (6.2-12.0); Monocyte% 3.8 % (0-10); NRBC Flagged by Analyzer 3.2 % (0-5); Neutrophil # 7.91 X10^3/uL (2.7-7.7); Neutrophil % 75.3 % (47-70); Platelet Count 311 K/mm3 (150-450); RBC Distribution Width CV 18.6 % (11.6-14.6); Red Blood Count 3.28 M/mm3 (4.2-5.4); White Blood Count 10.5 K/mm3 (4.4-11.0)
[2020-07-18] MEDS: 0.45% Normal Saline 1,000 ML 100 ML IV (04:06)
[2020-07-18 04:22] LABS: ALB/GLOB Ratio 0.5 RATIO (0.9-2.4); AST(SGOT) 59 U/L (15-37); Alanine Aminotransfer ALT/SGPT 48 U/L (13-56); Albumin, Serum 1.9 g/dL (3.2-5.0); Alkaline Phosphatase 103 U/L (45-117); Anion Gap 5 (5-15); BUN 49 mg/dL (7-18); Calcium,Total 8.2 mg/dL (8.5-10.1); Chloride 122 mmol/L (98-107); Creatinine, Serum 1.58 mg/dL (0.55-1.02); EST Glomerular Filtration Rate 33 mL/min (>60); Est Glom Filt Rate - Afr Amer 40 mL/min (>60); Estimated Creatinine Clearance 20.72 ml/min; Glucose 110 mg/dL (74-106); Magnesium 2.5 mg/dL (1.6-2.6); Phosphorus 3.3 mg/dL (2.5-4.9); Potassium 4.4 mmol/L (3.5-5.1); Protein, Total 5.9 g/dL (6.4-8.2); Sodium Level 152 mmol/L (136-145)
[2020-07-18] MEDS: TITRATION PARAMETER CHANGE 1 EACH IV (05:19)
[2020-07-18] MEDS: Levothyroxine 50 MCG Tablet PO (05:19)
[2020-07-18] MEDS: Propofol 10MG/Ml 1,000 MG/100 ML Bottle 4.5 MG CONT INF (06:15)
--- NOTE | 2020-07-18 07:11 | PN_ITS ---
Subjective: Patient did okay overnight. Patient has been more agitated on the ventilator requiring sedation. Patient was able to pass a spontaneous breathing trial this morning, but remains intubated secondary to a need for clarification on goals of therapy. No pressors have been required. Objective: Repeat echocardiogram shows worsening of lung function with a dilated cardiomyopathy with an EF of 20% (compared to 35%) with an RVSP of 40 mmHg. This was obtained while on the ventilator. General: - - RASS +1 on spontaneous breathing trial. Not following commands. Appears older than stated age. HEENT: Atraumatic, PERRLA, EOMI, Normocephalic, - - Slight scleral injection without icterus Oral: Moist Mucosa, No Gingival or Mucosal Lesions/ Ulcerations Neck: Supple, No Nodes, Trachea Midline, JVD, Right Lungs: No wheeze, No rales, Diminished, Rhonchi - Bilateral, - - Symmetric expansion. No dullness to percussion. Cardiovascular: Normal S1, Normal S2, No murmurs, No rub noted, No Gallop, Tachycardic Abdomen: Bowel Sounds Present, Soft, Non Tender, Non-Distended Extremities: No clubbing, No cyanosis, No edema, Capillary Refill Less than 3 Seconds Skin: - Musculoskeletal: No Tenderness to Palpation of Joints or Extremities - No change from previous Lymphatic: No Cervical, Supraclavicular, or Inguinal Adenopathy Neurological: Cranial nerves II-XII grossly intact, - - Not following many commands. Reflexes present. Spontaneous movement of all extremities. Psych/Mental Status: Impulsive, Restless Vital Signs Temp Pulse Resp BP Pulse Ox 37.9 C H 92 21 H 91/67 91 07/18/20 07:00 07/18/20 07:00 07/18/20 07:00 07/18/20 07:00 07/18/20 07:00 Oxygen Flow Rate (L/min) 15 Oxygen Delivery Method Mechanical Ventilator Weight: 50.5 kg Body Mass Index (BMI) 19.8 Intake and Output for Last 24 Hours 07/16/20 07/17/20 07/18/20 23:59 23:59 23:59 Intake Total 1893.77 / 1900.97 1095.66 / 1095.66 Output Total 900 / 900 200 / 200 Balance 993.77 / 1000.97 895.66 / 895.66 Labs (Last 48 Hours) 07/17/20 07/17/20 07/17/20 06:10 06:10 06:10 WBC 9.4 RBC 3.57 L Hgb 10.0 L Hct 33.8 L MCV 94.7 MCH 28.0 MCHC 29.6 L RDW Std Deviation 63.0 H RDW Coeff of Silvano 18.6 H Plt Count 359 MPV 11.6 Immature Gran % (Auto) 0.500 Neut % (Auto) 79.7 H Lymph % (Auto) 8.1 L [place] % (Auto) 3.3 Eos % (Auto) 8.1 H Baso % (Auto) 0.3 Absolute Neuts (auto) 7.5 Absolute Lymphs (auto) 0.76 L Nucleated RBC % 3.0 PT 20.5 H INR 1.8 APTT 29.7 Specimen Type Sample Site pH Bicarbonate Actual Total CO2 Base Excess O2 Saturation O2 % ABG pCO2 ABG pO2 Jf Test Respiration Rate O2 Delivery Device Vent Mode Tidal Volume POC PEEP Sodium 159 H Potassium 4.8 Chloride 125 H Carbon Dioxide 28.0 Anion Gap 6 BUN 60 H Creatinine 2.08 H Estim Creat Clear Calc 16.06 Est GFR (MDRD) Af Amer 29 L Est GFR (MDRD) Non-Af 24 L BUN/Creatinine Ratio 28.8 H Glucose 106 Lactic Acid Calcium 9.3 Phosphorus Magnesium Total Bilirubin 0.70 AST 83 H ALT 66 H Alkaline Phosphatase 114 Total Creatine Kinase B-Natriuretic Peptide Total Protein 6.7 Albumin 2.2 L Globulin 4.5 H Albumin/Globulin Ratio 0.5 L Triglycerides Urine Color Urine Clarity Urine pH Ur Specific [place] Urine Protein Urine Glucose (UA) Urine Ketones Urine Occult Blood Urine Nitrite Urine Bilirubin Urine Urobilinogen Ur Leukocyte Esterase Urine RBC Urine WBC Ur Squamous Epith Cells Urine Bacteria Urine Mucus COVID-19 (LYNETTE) 07/17/20 07/17/20 07/17/20 06:10 06:10 06:35 WBC RBC Hgb Hct MCV MCH MCHC RDW Std Deviation RDW Coeff of Silvano Plt Count MPV Immature Gran % (Auto) Neut % (Auto) Lymph % (Auto) [place] % (Auto) Eos % (Auto) Baso % (Auto) Absolute Neuts (auto) Absolute Lymphs (auto) Nucleated RBC % PT INR APTT Specimen Type Sample Site pH Bicarbonate Actual Total CO2 Base Excess O2 Saturation O2 % ABG pCO2 ABG pO2 Jf Test Respiration Rate O2 Delivery Device Vent Mode Tidal Volume POC PEEP Sodium Potassium Chloride Carbon Dioxide Anion Gap BUN Creatinine Estim Creat Clear Calc Est GFR (MDRD) Af Amer Est GFR (MDRD) Non-Af BUN/Creatinine Ratio Glucose Lactic Acid 1.7 Calcium Phosphorus Magnesium Total Bilirubin AST ALT Alkaline Phosphatase Total Creatine Kinase 50 B-Natriuretic Peptide Total Protein Albumin Globulin Albumin/Globulin Ratio Triglycerides 100 Urine Color Yellow Urine Clarity Clear Urine pH 7.0 Ur Specific [place] 1.010 Urine Protein 15 H Urine Glucose (UA) Normal Urine Ketones Negative Urine Occult Blood Negative Urine Nitrite Negative Urine Bilirubin 1 H Urine Urobilinogen 1 H Ur Leukocyte Esterase 25 H Urine RBC 0 SEEN Urine WBC 0-5 SEEN Ur Squamous Epith Cells 0 SEEN Urine Bacteria 0 SEEN Urine Mucus 0 SEEN COVID-19 (LYNETTE) 07/17/20 07/17/20 07/17/20 06:55 07:00 08:58 WBC RBC Hgb Hct MCV MCH MCHC RDW Std Deviation RDW Coeff of Silvano Plt Count MPV Immature Gran % (Auto) Neut % (Auto) Lymph % (Auto) [place] % (Auto) Eos % (Auto) Baso % (Auto) Absolute Neuts (auto) Absolute Lymphs (auto) Nucleated RBC % PT INR APTT Specimen Type ART Sample Site R Radial pH 7.47 H Bicarbonate Actual 23.6 Total CO2 25 Base Excess 0 O2 Saturation 96 O2 % 40 ABG pCO2 32.5 L ABG pO2 77 Jf Test Positive Respiration Rate 12 O2 Delivery Device Adult Vent Vent Mode AC Tidal Volume 450 POC PEEP 5 Sodium Potassium Chloride Carbon Dioxide Anion Gap BUN Creatinine Estim Creat Clear Calc Est GFR (MDRD) Af Amer Est GFR (MDRD) Non-Af BUN/Creatinine Ratio Glucose Lactic Acid Calcium Phosphorus Magnesium Total Bilirubin AST ALT Alkaline Phosphatase Total Creatine Kinase B-Natriuretic Peptide 1840.2 H Total Protein Albumin Globulin Albumin/Globulin Ratio Triglycerides Urine Color Urine Clarity Urine pH Ur Specific [place] Urine Protein Urine Glucose (UA) Urine Ketones Urine Occult Blood Urine Nitrite Urine Bilirubin Urine Urobilinogen Ur Leukocyte Esterase Urine RBC Urine WBC Ur Squamous Epith Cells Urine Bacteria Urine Mucus COVID-19 (LYNETTE) Negative 07/18/20 07/18/20 03:55 03:55 WBC 10.5 RBC 3.28 L Hgb 9.2 L Hct 31.3 L MCV 95.4 MCH 28.0 MCHC 29.4 L RDW Std Deviation 63.0 H RDW Coeff of Silvano 18.6 H Plt Count 311 MPV 11.4 Immature Gran % (Auto) 0.800 Neut % (Auto) 75.3 H Lymph % (Auto) 9.0 L [place] % (Auto) 3.8 Eos % (Auto) 10.3 H Baso % (Auto) 0.8 Absolute Neuts (auto) 7.9 H Absolute Lymphs (auto) 0.94 Nucleated RBC % 3.2 PT INR APTT Specimen Type Sample Site pH Bicarbonate Actual Total CO2 Base Excess O2 Saturation O2 % ABG pCO2 ABG pO2 Jf Test Respiration Rate O2 Delivery Device Vent Mode Tidal Volume POC PEEP Sodium 152 H Potassium 4.4 Chloride 122 H Carbon Dioxide 25.0 Anion Gap 5 BUN 49 H Creatinine 1.58 H Estim Creat Clear Calc 20.72 Est GFR (MDRD) Af Amer 40 L Est GFR (MDRD) Non-Af 33 L BUN/Creatinine Ratio 31.0 H Glucose 110 H Lactic Acid Calcium 8.2 L Phosphorus 3.3 Magnesium 2.5 Total Bilirubin 0.60 AST 59 H ALT 48 Alkaline Phosphatase 103 Total Creatine Kinase B-Natriuretic Peptide Total Protein 5.9 L Albumin 1.9 L Globulin 4.0 Albumin/Globulin Ratio 0.5 L Triglycerides Urine Color Urine Clarity Urine pH Ur Specific [place] Urine Protein Urine Glucose (UA) Urine Ketones Urine Occult Blood Urine Nitrite Urine Bilirubin Urine Urobilinogen Ur Leukocyte Esterase Urine RBC Urine WBC Ur Squamous Epith Cells Urine Bacteria Urine Mucus COVID-19 (LYNETTE) Clinical Impression(s) from Imaging Studies Brain CT 07/17/20 06:33 IMPRESSION: No acute intracranial abnormality. Chronic involutional and white matter changes. Individualized dose optimization techniques were used for this CT. at 0744 Reported and signed by: Sharon Roldan MD Electronically Signed: Sharon Roldan MD at 7:44 EDT Tel , Service support , Medical Necessity - Tobacco Use Smoking Status: Never smoker Assessment/Plan All Active Problems (Last Reviewed 03/30/20 @ 14:[address] Gary Bullard MD) Respiratory failure (Acute) Debility (Acute) RECOMMENDATIONS: 1. Continue ventilator management 2. Transition IV fluids to D5W 3. Wean oxygen as tolerated 4. Continue tube feeds 5. Spontaneous breathing and awakening trials per protocol 6. Consult cardiology for clarification of goals of therapy IMPRESSIONS: 1. Acute on chronic hypoxic respiratory failure secondary to probable cor pulmonale/bronchiectasis Patient appears to be in pulmonary edema secondary to probable cor pulmonale from chronic hypoxia. Patient's EF shows significant depression compared to recent study. Patient does have an element of hypernatremia and hyperchloremia that may be adding to delirium. IV fluids will be transitioned over to D5W. Patient may require Lasix therapy intermittently to help with volume status 2. Progressive dementia with failure to thrive Patient is on medical therapy at this time, but appears to have progressive decline over the course of weeks to months. Patient's CODE STATUS was reversed in the ER, but appears to be progressing with dementia. Patient has had very poor intake per dietitian. Unclear if patient is having acute delirium versus progression of dementia. Patient's mental status has reportedly been depressed for weeks. 3. Acute on chronic combined CHF/paroxysmal A. fib/hypertension Patient's last echocardiogram in 2019 showed an EF of 35% with stage II diastolic dysfunction, but shows that there has been some progression with a current EF of 20% and a BNP of 1800. Patient has been difficult to control secondary to progressive renal dysfunction with diuretic therapy. Patient will be continued on current medications. Patient is on Eliquis therapy, so it is unlikely that pulmonary embolism is worsening pulmonary hypertension. 4. Central sleep apnea/hypothyroidism/depression/history of breast cancer/history of CVA/advanced age/debility Complicates care, management, recovery and prognosis. Central sleep apnea likely secondary to cardiac etiology. Patient will be continued on baseline medications. Poor prognosis from my perspective given decline. Will continue tube feeds to see if this will help. We will have to monitor for refeeding syndrome with aggressive electrolyte replacement as indicated. Patient appears to be hospice appropriate from my perspective 5. Acute kidney injury on chronic kidney disease stage III Some improvement with control of hypoxia. Patient remains hypernatremic and hyperchloremic. IV fluids will be transitioned to D5W to minimize total fluids required. Urine output has been acceptable, but patient is gaining weight and has a positive fluid balance. Lasix may be required moving forward. TIME: 35 minutes critical care time spent addressing patient's respiratory failure, CHF, review of all data and collaboration with care team (6 AM to 7 AM) [phone]: [id number] Critical care first hour
[2020-07-18] MEDS: APIXABAN 2.5 MG TABLET PO ×2 (08:04→21:24)
[2020-07-18] MEDS: Docusate Sodium 100 MG Capsule 200 MG PO (08:04)
[2020-07-18] MEDS: Memantine Hydrochloride 10 MG Tablet PO ×2 (08:04→21:24)
[2020-07-18] MEDS: Amiodarone 200 MG Tablet PO ×2 (08:04→08:05)
[2020-07-18] MEDS: DULoxetine Hcl 20 MG Capsule 40 MG PO (08:05)
[2020-07-18] MEDS: Aspirin E.C. 81 MG Tablet PO (08:05)
[2020-07-18] MEDS: Chlorhexidine 15 ML PO ×2 (08:05→21:24)
[2020-07-18] MEDS: Famotidine 20 MG Tablet PO (08:19)
--- NOTE | 2020-07-18 10:27 | CASEMGMT ---
This RN CM participated in ICU multidisciplinary rounds. Pt is still on the vent at this time with O2 35% and peep 5. Per Dr. Benjamin, pt's EF dropped from 35% to 20% at this time and Dr. Bullard has been consulted. CM to follow for any further discharge planning/needs. [place] RN CM
--- NOTE | 2020-07-18 10:37 | NT.THERAPY_ITS ---
Nutrition Therapy Report - History Nutrition Services has been consulted to:: Manage enteral nutrition Current diet / nutrition support order:: NPO; Vital AF 1.2 at 25mL/hour w/ 125mL H2O flush every 4 hours to provide 720 calories, 45 g protein, 1236mL total fluid/day - Anthropometric Measurements Height:: 5 ft 1.81 in Weight:: 50.5 kg Body Mass Index (BMI):: 20.5 - Relevant Labs Relevant Labs:: RBC 3.28 M/mm3 (4.2-5.4) L 07/18/20 03:55 Hgb 9.2 g/dL (12.0-15.0) L 07/18/20 03:55 Hct 31.3 % (37-47) L 07/18/20 03:55 MCHC 29.4 g/dL (32-36) L 07/18/20 03:55 RDW Std Deviation 63.0 fl (35.1-43.9) H 07/18/20 03:55 RDW Coeff of Silvano 18.6 % (11.6-14.6) H 07/18/20 03:55 Neut % (Auto) 75.3 % (47-70) H 07/18/20 03:55 Lymph % (Auto) 9.0 % (19-41) L 07/18/20 03:55 Eos % (Auto) 10.3 % (0-5) H 07/18/20 03:55 Absolute Neuts (auto) 7.9 X10^3/uL (2.0-7.7) H 07/18/20 03:55 Absolute Lymphs (auto) 0.76 X10^3/uL (0.83-4.51) L 07/17/20 06:10 PT 20.5 SECONDS (11.7-14.9) H 07/17/20 06:10 Sodium 152 mmol/L (136-145) H 07/18/20 03:55 Chloride 122 mmol/L (98-107) H 07/18/20 03:55 BUN 49 mg/dL (7-18) H 07/18/20 03:55 Creatinine 1.58 mg/dL (0.55-1.02) H 07/18/20 03:55 Est GFR (MDRD) Af Amer 40 mL/min (>60) L 07/18/20 03:55 Est GFR (MDRD) Non-Af 33 mL/min (>60) L 07/18/20 03:55 BUN/Creatinine Ratio 31.0 RATIO (10-20) H 07/18/20 03:55 Glucose 110 mg/dL (74-106) H 07/18/20 03:55 Calcium 8.2 mg/dL (8.5-10.1) L 07/18/20 03:55 AST 59 U/L (15-37) H 07/18/20 03:55 ALT 66 U/L (13-56) H 07/17/20 06:10 B-Natriuretic Peptide 1840.2 pg/mL (0-100) H 07/17/20 06:55 Total Protein 5.9 g/dL (6.4-8.2) L 07/18/20 03:55 Albumin 1.9 g/dL (3.2-5.0) L 07/18/20 03:55 Globulin 4.5 g/dL (2.2-4.2) H 07/17/20 06:10 Albumin/Globulin Ratio 0.5 RATIO (0.9-2.4) L 07/18/20 03:55 - Assessment Food / Nutrition-Related History:: Discussed in ICU rounds. Pt did have breathing trial this AM but remains intubated until code status/plan of care is discussed w/ pt family. Enteral nutrition support started yesterday- tolerated at 25mL/hour currently. Mag/phos WNL. IV fluids started d/t hypernatremia and hyperchloremia. Wt increase of 1.7 kg since last review. Per rounds, current clinical status likely r/t CHF w/ worsening EF. - Nutrition Diagnosis Problem / Etiology / Signs & Symptoms (PES):: Chronic, severe malnutrition related to inadequate energy intake as evidenced by 6.1kg/11% wt loss <6 months, documented PO intake to be <75% of estimated nutritional needs over last 1 month, with noted refusal of PO nutrition at multiple meals. Evidence of Malnutrition Exists:: Yes Severe PCM:: Chronic Illness - Food / Nutrient Delivery Interventions Summary of nutrition intervention:: Pt w/ significant risk factors for refeeding syndrome (unintentional wt loss >10% x 6 months, <75% estimated energy requirements >1 month, hx of dysphagia, failure to thrive, malnutrition, dementia, advanced age). Will follow guidelines for RFS prevention. Will inc rease rate of enteral nutrition support to 30mL/hour to provide ~17 calories/kg (15-20% from protein). Nutrition support ordered as / adjusted to:: will increase rate of Vital AF 1.2 to 30mL/hour w/ 125 mL H2O flush every 4 hours to provide 864 calories, 54 g protein, and 1334mL total fluid/day. Nutrition education provided?: No - MNT Monitoring Further MNT monitoring and evaluation required?: Yes - Will continue to monitor tolerance, wt, labs, and adjust EN as indicated. MNT Follow-up in:: 1-2 days
--- NOTE | 2020-07-18 13:05 | CON.PCM_ITS ---
Reason for Consult Date of Consultation: 07/18/20 Reason for Consultation: Shortness of breath and status post intubation for cardiac opinion History of Present Illness: MARCO ANTONIO HORN, is a 84 F who was recently readmitted to the hospital through the emergency room into the intensive care unit.. As you know, she is a lady with a history of hypertensive dilated cardiomyopathy dating back to 1997 when she originally had an echocardiogram which demonstrated an ejection fraction of 40%. She was placed on lisinopril and carvedilol at that time and has been followed up since here in [place]. In December 2016 she was noted to have orthostatic periods and her blood pressure medication was decreased. She subsequently presented to the hospital in December 2016 when she was noted to be in atrial fibrillation and then spontaneously converted back to sinus rhythm. In October 2017 she was brought to the emergency room again with excruciating pain in the lateral aspect of her right thigh she was transferred to [facility] where she was evaluated. At that time she was noted to be hypoxic she was also noted to be in atrial fibrillation she was treated with metoprolol and did well. In November 2017 she presented to the hospital again with shortness of breath and atrial fibrillation she was evaluated by Dr. Bullard and diagnosed to have congestive heart failure with an estimated ejection fraction of 25-30%. She was diuresed with intravenous Lasix she was placed on intravenous Cardizem for rate control with significant improvement. She had her medications titrated and was placed on the beta-claudine as well as the diuretic and discharged. She was also placed on amiodarone. She had been doing well until late 2017 when she presented with what appeared to be recurrent intermittent aphasia. She was admitted and had an MRA of the head which demonstrated no hemodynamically significant stenosis in the MRI of the brain demonstrated no evidence of acute infarct or hemorrhage. In the late part of October 2018 she was readmitted with the same complaint with an expressive aphasia and the MRI also demonstrated no significant abnormalities. She underwent physical therapy and was subsequently transferred to the transitional care unit. She has been maintaining sinus rhythm and her INR has been mostly within the therapeutic range. With her recent stent in the transitional care unit she did develop kidney stones and needed to have a ureteral stent placed. She needed to have a repeat procedure. Unfortunately after the first procedure she did develop congestive heart failure and required diuresis. After her second procedure she appeared to be doing much better. Her last echocardiogram from May 2019 demonstrating ejection fraction of 35%, with stage II diastolic dysfunction and a global longitudinal strain of 10.9. She was admitted to the telemetry care unit earlier this year with some shortness of breath and was treated and then subsequently transferred to the transitional care unit. She was there for approximately 2 weeks and began to get increasingly more confused and was requiring oxygen. She did require some intravenous fluids as she was not taking a lot of oral intake. She became more short of breath and required intravenous Lasix. She apparently stabilized and was discharged home. However she did require oxygen at home became more confused and needed to be brought back within 24 hours to the emergency room where she underwent intubation and was admitted to the intensive care unit. She had not complained of any chest discomfort. An echocardiogram was repeated during this admission and her echocardiogram demonstrated that her ejection fraction had declined globally to approximately 20%. She is currently in the intensive care unit in stable requiring minimal oxygenation. She however has some electrolyte perturbations with elevated sodium and chloride. This is being corrected. Past Medical History Allergies/Adverse Reactions: Allergies Penicillins [PCN] Allergy (Verified 07/17/20 07:09) Rash Home Medications: Ambulatory Orders Medication Instructions Recorded cyclobenzaprine 5 mg tablet 5 mg PO BID tab 05/30/19 Calcium Citrate/Vitamin D3 1 tab PO TIDCM 08/19/19 [Calcium Cit 315-Vit D3 200 Tab] Cholecalciferol (Vitamin D3) 2,000 unit PO DAILY 08/19/19 [D3-2000] Levothyroxine Sodium [Levoxyl] 50 mcg PO DAILY 08/19/19 Memantine Hydrochloride [Namenda] 10 mg PO BID 08/19/19 amiodarone 200 mg tablet 200 mg PO DAILY #90 tab 09/26/19 aspirin 81 mg tablet,delayed 81 mg PO DAILY 09/26/19 release docusate sodium 100 mg capsule 200 mg PO DAILY cap 09/26/19 polyethylene glycol 3350 17 2.5 ml PO QHS PRN PRN 12/13/19 gram/dose oral powder Apixaban [Eliquis] 2.5 mg PO BID 02/17/20 Cyanocobalamin [Vitamin B12] 1,000 mcg PO DAILY@0800 02/17/20 Dymista 1 puff NASAL BID PRN PRN 02/17/20 Psyllium [Metamucil] 10 ml PO DAILY 02/17/20 duloxetine 40 mg capsule,delayed 40 mg PO DAILY 03/30/20 release sprinkle Tramadol HCl 100 mg PO BID 06/15/20 Albuterol Aerosols [Ventolin 2.5 mg INHALATION Q2H PRN PRN 06/19/20 Aerosols] vial.neb. Furosemide [Lasix] 40 mg PO DAILY 06/19/20 Polyethylene Glycol 3350 [Miralax] 17 gm PO DAILY 06/19/20 Potassium Chloride [K-Dur] 40 meq PO DAILYCM 06/19/20 Azelastine HCl [Astelin] 1 spray NASAL BID PRN nasal.sry 07/05/20 Fluticasone 0.05% [Flonase Nasal 1 spray NASAL BID PRN nasal.sry 07/05/20 Brielle] Peg 400/Hypromellose/Glycerin 2 drp EACH EYE Q1H PRN bottle 07/05/20 [Artificial Tears] Ensure Enlive 120 ml PO 4X/DAY 07/17/20 Menthol/Lanolin/Calamine/Znox 1 applic TOPICAL 0600,2200 07/17/20 [Calmoseptine Ointment] Mirtazapine [Remeron] 7.5 mg PO QHS 07/17/20 Past Medical History (Chronic Problems): Chronic Problems (Last Reviewed 03/30/20 @ 14:[address] Gary Bullard MD) Encephalopathy (Chronic) Weakness (Chronic) Acute on chronic systolic (congestive) heart failure (Chronic) Alzheimer disease (Chronic) Atrial fibrillation (Chronic) Hypertension (Chronic) Breast cancer (Chronic) Hypothyroidism (Chronic) Hypokalemia (Chronic) Depression (Chronic) Acute on chronic combined systolic and d (Chronic) Failure to thrive (Chronic) Chronic combined systolic and diastolic CHF (congestive heart failure) (Chronic) Non-ischemic cardiomyopathy (Chronic) Paroxysmal atrial fibrillation (Chronic) Left bundle branch block (LBBB) (Chronic) Essential (primary) hypertension (Chronic) CVA (cerebral vascular accident) (Chronic) Expressive aphasia History of breast cancer (Chronic) shelter (current) use of anticoagulants (Chronic) Surgical History: appendectomy, cataract, mastectomy - Right., - - Lumpectomy, tubal ligation, right breast mass biopsy. 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 Gary Bullard MD) Grandmother Diabetes History Items: No pertinent history Paternal Family History: Family History (Last Reviewed 03/30/20 @ 14:[address] Gary Bullard MD) Grandmother Diabetes History Items: No pertinent history Lives: Spouse/ Significant Other Smoking Status: Never smoker Alcohol: None Drugs: None Review of Systems - Review of Systems General: Reports: Weakness, Decreased Appetite, Weight Loss. Denies: Fever, Fatigue, Night Sweats HEENT: Denies: Vision Change Cardiovascular: Denies: Chest Discomfort, Shortness of Breath, Orthopnea, PND, Peripheral Edema, Palpitations, Lightheadedness, Dizziness, Near Syncope, Syncope Respiratory: Denies: Cough, Sputum Production, Hemoptysis Gastrointestinal: Denies: Hematemesis, Hematochezia, Melena Genitourinary: Denies: Dysuria, Hematuria Skin: Denies: Rash Neurological: Reports: Confusion, Decreased Coordination Psychiatric: Denies: Anxiety Endocrine: Reports: Unexplained Weight Loss Hematologic/ Lymphatic: Reports: Anemia Subjectve: Elderly lady in no distress currently sedated and intubated Objective: Vital Signs Temp Pulse Resp BP Pulse Ox 100.1 F H 86 16 88/51 L 96 07/18/20 12:00 07/18/20 12:00 07/18/20 12:00 07/18/20 12:00 07/18/20 12:00 Oxygen Flow Rate (L/min) 15 Oxygen Delivery Method Mechanical Ventilator Weight: 111 lb 5.335 oz Body Mass Index (BMI) 20.5 Intake and Output for Last 24 Hours 07/16/20 07/17/20 07/18/20 23:59 23:59 23:59 Intake Total 1893.77 / 1900.97 1122.79 / 1122.79 Output Total 900 / 900 375 / 375 Balance 993.77 / 1000.97 747.79 / 747.79 General: Awake, Alert, Oriented x 3 HEENT: PERRL, EOMI, Sclera Non Icteric Neck: Supple, Good ROM, No Lymph Node Enlargement Lungs: Clear to auscultation Cardiovascular: Regular Rhythm, Normal S1, Normal S2, No Murmurs, No Rubs, No Gallops Vascular: No Carotid Bruits, Normal Femoral Pulses, Normal Radial Pulses, Normal Dorsalis Pedal Pulse, Normal Posterior Tibial Pulses Abdomen: Bowel Sounds Present, Soft, Non Tender, No HSM, No Organomegaly Extremities: No Cyanosis, No Clubbing, No edema Musculoskeletal: No Erythema Skin: No Rashes Lymphatic: No Lymph Node Enlargement Neurological: No Focal Motor or Sensory Deficit Psych/Mental Status: Memory Loss 07/18/20 03:55: WBC 10.5, RBC 3.28 L, Hgb 9.2 L, Hct 31.3 L, MCV 95.4, MCH 28.0, MCHC 29.4 L, Plt Count 311, MPV 11.4, Immature Gran % (Auto) 0.800, Neut % (Auto) 75.3 H, Lymph % (Auto) 9.0 L, [place] % (Auto) 3.8, Eos % (Auto) 10.3 H, Baso % (Auto) 0.8, Absolute Neuts (auto) 7.9 H, Nucleated RBC % 3.2 07/18/20 03:55: Sodium 152 H, Potassium 4.4, Chloride 122 H, Carbon Dioxide 25.0, Anion Gap 5, BUN 49 H, Creatinine 1.58 H, Est GFR (MDRD) Af Amer 40 L, Est GFR (MDRD) Non-Af 33 L, BUN/Creatinine Ratio 31.0 H, Glucose 110 H, Calcium 8.2 L, Phosphorus 3.3, Magnesium 2.5, Total Bilirubin 0.60 Rhythm: EKG: ECHO: Stress Test: Cardiac Cath: PCI: CT Surgery: Holter monitor: EPS: PPM: CXR: Chest CT Scan: Assessment/Plan 1. 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 There has been a further decline in his left ventricular ejection fraction. Her blood pressure has not allowed us to use TENA inhibitors or beta-blockers. We will therefore continue to judiciously use diuretics as appropriate. Her most recent ejection fraction was noted to be 20%. The plan will be to try to extubate her and then see how she does overall. She has also had some worsening renal function. 2. Non-ischemic cardiomyopathy I42.8 Plan She does have evidence of nonischemic cardiomyopathy. Last ejection fraction was noted to be 20% with global hypokinesis. We will continue to observe this for now. 3. Essential (primary) hypertension I10 Plan Her blood pressure is low at the present time but she also has some sedation on board. She may be somewhat dehydrated but we are limited by the amount that we can hydrate her based on her left ventricular ejection fraction. 4. Paroxysmal atrial fibrillation I48.0 Plan She does have a history of paroxysmal atrial fibrillation however it does not appear that she has had any recent episodes she remains on the amiodarone. The carvedilol was discontinued due to her blood pressure being low. I have been in constant communication with her explaining our plan of action. It appears that with a significant decline in ejection fraction overall medium to long-term prognosis is rather low. I would therefore not recommend that after she is extubated we consider reintubating her. I will discuss this further. Above has been discussed with the technician support association and the hospitalist as well. Thank you for allowing me to participate in the care of your patient. Please don't hesitate to call if any issues arise. .
--- NOTE | 2020-07-18 17:38 | PCM.PN.HOSP ---
Patient Problems: Active and Suspected Problems (Last Reviewed 03/30/20 @ 14:[address] Gary Bullard MD) Respiratory failure (Acute) Subjective: Intubated and sedated, she did pass spontaneous breathing trial however we did not secondary to needing to discuss goals of care with the . Vitals/I&O's: Vital Signs Temp Pulse Resp BP Pulse Ox 98.5 F 90 14 92/50 L 94 07/18/20 16:00 07/18/20 16:00 07/18/20 16:16 07/18/20 16:00 07/18/20 16:00 Oxygen Flow Rate (L/min) 15 Oxygen Delivery Method Mechanical Ventilator Weight: 111 lb 5.335 oz Body Mass Index (BMI) 20.5 Intake and Output for Last 24 Hours 07/16/20 07/17/20 07/18/20 23:59 23:59 23:59 Intake Total 1893.77 / 1900.97 1170.31 / 1170.31 Output Total 900 / 900 550 / 550 Balance 993.77 / 1000.97 620.31 / 620.31 General: - - Intubated and sedated HEENT: Atraumatic, PERRLA, Normocephalic Oral: Dry Mucosa Neck: Supple, No JVD Lungs: No wheeze, No rales, Diminished, Rhonchi Cardiovascular: Regular rate, Regular Rhythm, Normal S1, Normal S2, No murmurs Abdomen: Soft, Non-Distended, No Hepato-splenomegaly Extremities: No edema, Capillary Refill Less than 3 Seconds Skin: No rashes, No breakdown Neurological: - - Debated and sedated Psych/Mental Status: - - Intubated and sedated Microbiology Past 72 Hours 07/17/20 06:35 Urine Catheter - Catheter Urine Culture - Preliminary Culture exhibits no growth. Laboratory Results 07/18/20 03:55: WBC 10.5, RBC 3.28 L, Hgb 9.2 L, Hct 31.3 L, MCV 95.4, MCH 28.0, MCHC 29.4 L, RDW Std Deviation 63.0 H, RDW Coeff of Silvano 18.6 H, Plt Count 311, MPV 11.4, Immature Gran % (Auto) 0.800, Neut % (Auto) 75.3 H, Lymph % (Auto) 9.0 L, [place] % (Auto) 3.8, Eos % (Auto) 10.3 H, Baso % (Auto) 0.8, Absolute Neuts (auto) 7.9 H, Absolute Lymphs (auto) 0.94, Nucleated RBC % 3.2 07/18/20 03:55: Sodium 152 H, Potassium 4.4, Chloride 122 H, Carbon Dioxide 25.0, Anion Gap 5, BUN 49 H, Creatinine 1.58 H, Estim Creat Clear Calc 20.72, Est GFR (MDRD) Af Amer 40 L, Est GFR (MDRD) Non-Af 33 L, BUN/Creatinine Ratio 31.0 H, Glucose 110 H, Calcium 8.2 L, Phosphorus 3.3, Magnesium 2.5, Total Bilirubin 0.60, AST 59 H, ALT 48, Alkaline Phosphatase 103, Total Protein 5.9 L, Albumin 1.9 L, Globulin 4.0, Albumin/Globulin Ratio 0.5 L Current Medications Amiodarone HCl (Cordarone) 200 mg PO DAILY [facility] Last Admin: 07/18/20 08:05 Dose: 200 mg Documented by: Apixaban (Eliquis) 2.5 mg PO BID [facility] Last Admin: 07/18/20 08:04 Dose: 2.5 mg Documented by: Aspirin (Ecotrin) 81 mg PO DAILY@0800 [facility] Last Admin: 07/18/20 08:05 Dose: 81 mg Documented by: Chlorhexidine Gluconate () 15 ml PO BID [facility] Last Admin: 07/18/20 08:05 Dose: 15 ml Documented by: Docusate Sodium (Colace) 200 mg PO DAILY [facility] Last Admin: 07/18/20 08:04 Dose: 200 mg Documented by: Duloxetine HCl (Cymbalta) 40 mg PO DAILY [facility] Last Admin: 07/18/20 08:05 Dose: 40 mg Documented by: Famotidine (Pepcid) 20 mg PO DAILY [facility] Last Admin: 07/18/20 08:19 Dose: 20 mg Documented by: Fentanyl Citrate 1,000 mcg/ (Sodium Chloride) 100 mls @ 2.5 mls/hr CONT INF .Q40H [facility]; Protocol Last Titration: 07/18/20 16:00 Dose: 75 mcg/hr, 7.5 mls/hr Documented by: Sodium Chloride () 250 mls @ 15 mls/hr IV .[id number] PRN PRN Reason: Saline Flush Sodium Chloride () 250 mls @ 15 mls/hr IV .[id number] PRN PRN Reason: Additional IVPB Infusion Propofol (Diprivan) 1,000 mg in 100 mls @ 3.03 mls/hr CONT INF .Q12H [facility]; Protocol Last Titration: 07/18/20 16:00 Dose: 0 mcg/kg/min, 0 mls/hr Documented by: Enteral Nutritional Formula (Vital Af 1.2 Raymond Liquid) 1,000 mls @ 30 mls/hr GT .[id number] [facility] Last Admin: 07/17/20 14:46 Dose: 25 mls/hr Documented by: Dextrose () 1,000 mls @ 50 mls/hr IV .Q20H [facility] Last Admin: 07/18/20 06:05 Dose: 50 mls/hr Documented by: Levothyroxine Sodium (Synthroid) 50 mcg PO DAILY@0600 [facility] Last Admin: 07/18/20 05:19 Dose: 50 mcg Documented by: Memantine (Namenda) 10 mg PO BID [facility] Last Admin: 07/18/20 08:04 Dose: 10 mg Documented by: Mirtazapine (Remeron) 7.5 mg PO QHS [facility] Last Admin: 07/17/20 20:42 Dose: 7.5 mg Documented by: Sodium Chloride () 10 - 40 ml IV UD PRN PRN Reason: SALINE FLUSH Last Admin: 07/18/20 05:19 Dose: 10 ml Documented by: STROKE Vital Signs/Narrative: Vital Signs Temp Pulse Resp BP Pulse Ox 07/18/20 16:16 14 07/18/20 16:00 98.5 F 90 18 92/50 L 94 07/18/20 15:01 89 07/18/20 15:00 89 28 H 90/49 L 93 07/18/20 14:00 88 14 92/47 L 07/18/20 13:40 12 Medical Necessity - Tobacco Use Smoking Status: Never smoker Assessment/Plan All Active Problems (Last Reviewed 03/30/20 @ 14:[address] Gary Bullard MD) Respiratory failure (Acute) Debility (Acute) 1. Acute hypoxic respiratory failure secondary to bronchiectasis and possible cor pulmonale/central obstructive sleep apnea/KALEN on CKD 3/hypernatremia -Continue with intubation, CT scan of the chest was reviewed in January which showed the beginnings of a recurrence in her infiltrates - chest x-ray showed bilateral pulmonary infiltrates that are unchanged from about a month ago -Appreciate dairy scientist assistance -PE is unlikely secondary to her chronic Eliquis -She did pass a spontaneous breathing trial but will discuss goals of care with the -Baseline creatinine is around 1.3, she is down to a creatinine of 1.58 with a sodium of 152 down from 159 while on the half-normal saline however she was switched to D5W today. 2. Acute on chronic systolic and diastolic CHF/paroxysmal A. fib/HTN/HLD/history of CVA -Continue with her Eliquis as she has an OG in place -Also continue with her aspirin and amiodarone -Given her acute kidney injury and her hyponatremia, will hold off on Lasix for right now -Echo demonstrates a worsening EF to 20% 3. Dementia/depression -We will continue with her Cymbalta, Namenda, Remeron -We will hold her Flexeril as this can also be contributing to her altered mental status secondary to her kidney disease 4. Hypothyroidism -Stable -Continue with Synthroid DVT: Eliquis Inpatient E&M: [id number] Subs Hosp L2
[2020-07-18] MEDS: Mirtazapine 15 MG Tablet 7.5 MG PO (21:24)
[2020-07-19] VITALS (23 sets, daily range): BP systolic 76–102; BP diastolic 44–57; PULSE 76–111; RESP 12–20; TEMP 37.5–38.7; O2SAT 92–100
[2020-07-19] MEDS: Vital AF 1.2 Cal Liquid 1,000 ML 30 ML GT (00:13)
--- NOTE | 2020-07-19 00:38 | EKG12_ITS ---
Test Reason : Blood Pressure : / mmHG Vent. Rate : 091 BPM Atrial Rate : 091 BPM P-R Int : 124 ms QRS Dur : 180 ms QT Int : 446 ms P-R-T Axes : 063 -46 107 degrees QTc Int : 548 ms Normal sinus rhythm Left axis deviation Left bundle branch block Abnormal ECG When compared with ECG of 17-JUL-2020 06:49, No significant change was found Confirmed by DAVID MORENO MD ([id number]), editor at large TRACY MINOR ([id number] on 08/01/2020 8:57:11 AM Referred By: Confirmed By:DAVID MORENO MD
--- NOTE | 2020-07-19 00:58 | EKG12_ITS ---
Test Reason : Blood Pressure : / mmHG Vent. Rate : 088 BPM Atrial Rate : 088 BPM P-R Int : 098 ms QRS Dur : 180 ms QT Int : 472 ms P-R-T Axes : 053 -58 100 degrees QTc Int : 571 ms Sinus rhythm with short [place] Left axis deviation Left bundle branch block Abnormal ECG When compared with ECG of 19-JUL-2020 00:38, MANUAL COMPARISON REQUIRED, DATA IS UNCONFIRMED Confirmed by JOSH PARADA, DAVID ([id number]), movie editor WILLIAM COOLEY ([id number]) on 07/31/2020 12:50:15 PM Referred By: Confirmed By:DAVID MORENO MD
[2020-07-19 03:53] LABS: Magnesium 2.4 mg/dL (1.6-2.6); Phosphorus 2.6 mg/dL (2.5-4.9)
[2020-07-19 04:20] LABS: Absolute Lymphocyte Count 1.13 X10^3/uL (0.83-4.51); Basophil# 0.06 X10^3/uL; Basophil% 0.4 % (0-1); Eosinophil# 1.14 X10^3/uL; Eosinophils% 6.7 % (0-5); Hematocrit 31.9 % (37-47); Hemoglobin 9.4 g/dL (12.0-15.0); Lymphocyte # 1.13 X10^3/ul (4.0); Lymphocyte % 6.7 % (19-41); Mean Corp Hgb Conc 29.5 g/dL (32-36); Mean Corpuscular Hgb 28.1 pg (27.0-32.0); Mean Corpuscular Volume 95.2 fL (81-99); Monocyte# 0.44 X10^3/uL; Monocyte% 2.6 % (0-10); NRBC Flagged by Analyzer 1.4 % (0-5); Neutrophil % 82.6 % (47-70); Platelet Count 268 K/mm3 (150-450); RBC Distribution Width CV 18.3 % (11.6-14.6); RBC Distribution Width SD 62.3 fl (35.1-43.9); Red Blood Count 3.35 M/mm3 (4.2-5.4); White Blood Count 16.9 K/mm3 (4.4-11.0)
[2020-07-19 04:31] LABS: ALB/GLOB Ratio 0.4 RATIO (0.9-2.4); AST(SGOT) 92 U/L (15-37); Alanine Aminotransfer ALT/SGPT 54 U/L (13-56); Albumin, Serum 1.8 g/dL (3.2-5.0); Alkaline Phosphatase 136 U/L (45-117); Anion Gap 7 (5-15); BUN 33 mg/dL (7-18); BUN/Creat Ratio 23.9 RATIO (10-20); Chloride 113 mmol/L (98-107); Creatinine, Serum 1.38 mg/dL (0.55-1.02); EST Glomerular Filtration Rate 39 mL/min (>60); Est Glom Filt Rate - Afr Amer 47 mL/min (>60); Estimated Creatinine Clearance 23.72 ml/min; Globulin 4.1 g/dL (2.2-4.2); Glucose 103 mg/dL (74-106); Potassium 4.6 mmol/L (3.5-5.1); Protein, Total 5.9 g/dL (6.4-8.2); Sodium Level 142 mmol/L (136-145)
[2020-07-19] MEDS: TITRATION PARAMETER CHANGE 1 EACH IV (04:54)
[2020-07-19] MEDS: Levothyroxine 50 MCG Tablet PO (05:07)
[2020-07-19 06:11] LABS: Base Excess -3 mmol/L (-2 to +2); Bicarbonate 21.7 mmol/L (22-26); Blood Gas Specimen Type ART; FI02 40; Mode CPAP/PS; O2 Delivery Device Adult Vent; PO2 74 mmHG (75-100); SITE L Radial; SO2 95 % (95-99); Total Carbon Dioxide 23 mmol/L; pCO2 33.5 mmHg (35-45); pH 7.42 (7.35-7.45)
[2020-07-19] MEDS: APIXABAN 2.5 MG TABLET PO (06:18)
[2020-07-19] MEDS: Famotidine 20 MG Tablet PO (06:18)
[2020-07-19] MEDS: Memantine Hydrochloride 10 MG Tablet PO (06:18)
[2020-07-19] MEDS: Acetaminophen 650 MG/20 ML UDC PO (06:27)
--- NOTE | 2020-07-19 07:00 | NURSING ---
Pt extubated to 5lnc at 0657.
--- NOTE | 2020-07-19 07:32 | PN_ITS ---
Subjective: Patient did okay overnight. Patient was able to pass a spontaneous breathing trial this morning. Patient did have a fever overnight with slightly decreased blood pressures. Patient remains confused and does not readily make eye contact Did discuss with Dr. Bullard and Dr. Blank overnight. Plan for a family meeting this morning to evaluate goals of therapy. Per their report, patient would not be reintubated. General: Confused, Disoriented, Lethargic, - - Appears older than stated age HEENT: Atraumatic, PERRLA, EOMI, Normocephalic, - - No scleral icterus or injection noted. NG in place. Oral: Moist Mucosa, No Gingival or Mucosal Lesions/ Ulcerations Neck: Supple, No JVD, No Nodes, Trachea Midline Lungs: No wheeze, No rales, Diminished, Rhonchi - Bilateral, - - Symmetric expansion Cardiovascular: Normal S1, Normal S2, No murmurs, No rub noted, No Gallop, Tachycardic Abdomen: Bowel Sounds Present, Soft, Non Tender, Non-Distended Extremities: No clubbing, No cyanosis, No edema Skin: - - No change compared to previous Musculoskeletal: No Tenderness to Palpation of Joints or Extremities Lymphatic: No Cervical, Supraclavicular, or Inguinal Adenopathy Neurological: Cranial nerves II-XII grossly intact, Neuro grossly intact - Not overly cooperative with exam. Nonfocal Psych/Mental Status: Flat Affect, Restless Vital Signs Temp Pulse Resp BP Pulse Ox 38.3 C H 88 20 H 94/57 L 94 07/19/20 07:00 07/19/20 07:00 07/19/20 07:00 07/19/20 07:00 07/19/20 07:00 Oxygen Flow Rate (L/min) 5 Oxygen Delivery Method Nasal Cannula Weight: 51.9 kg Body Mass Index (BMI) 20.5 Intake and Output for Last 24 Hours 07/17/20 07/18/20 07/19/20 23:59 23:59 23:59 Intake Total 1893.77 / 1900.97 2119.82 / 2576.82 1108.96 / 1108.96 Output Total 900 / 900 825 / 925 210 / 210 Balance 993.77 / 1000.97 1294.82 / 1651.82 898.96 / 898.96 Labs (Last 48 Hours) 07/17/20 07/17/20 07/17/20 06:10 06:55 07:00 WBC RBC Hgb Hct MCV MCH MCHC RDW Std Deviation RDW Coeff of Silvano Plt Count MPV Immature Gran % (Auto) Neut % (Auto) Lymph % (Auto) [place] % (Auto) Eos % (Auto) Baso % (Auto) Absolute Neuts (auto) Absolute Lymphs (auto) Nucleated RBC % Specimen Type Sample Site pH Bicarbonate Actual Total CO2 Base Excess O2 Saturation O2 % ABG pCO2 ABG pO2 Jf Test Respiration Rate O2 Delivery Device Vent Mode Tidal Volume POC PEEP Sodium Potassium Chloride Carbon Dioxide Anion Gap BUN Creatinine Estim Creat Clear Calc Est GFR (MDRD) Af Amer Est GFR (MDRD) Non-Af BUN/Creatinine Ratio Glucose Calcium Phosphorus Magnesium Total Bilirubin AST ALT Alkaline Phosphatase Total Creatine Kinase 50 B-Natriuretic Peptide 1840.2 H Total Protein Albumin Globulin Albumin/Globulin Ratio Triglycerides 100 COVID-19 (LYNETTE) Negative 07/17/20 07/18/20 07/18/20 08:58 03:55 03:55 WBC 10.5 RBC 3.28 L Hgb 9.2 L Hct 31.3 L MCV 95.4 MCH 28.0 MCHC 29.4 L RDW Std Deviation 63.0 H RDW Coeff of Silvano 18.6 H Plt Count 311 MPV 11.4 Immature Gran % (Auto) 0.800 Neut % (Auto) 75.3 H Lymph % (Auto) 9.0 L [place] % (Auto) 3.8 Eos % (Auto) 10.3 H Baso % (Auto) 0.8 Absolute Neuts (auto) 7.9 H Absolute Lymphs (auto) 0.94 Nucleated RBC % 3.2 Specimen Type ART Sample Site R Radial pH 7.47 H Bicarbonate Actual 23.6 Total CO2 25 Base Excess 0 O2 Saturation 96 O2 % 40 ABG pCO2 32.5 L ABG pO2 77 Jf Test Positive Respiration Rate 12 O2 Delivery Device Adult Vent Vent Mode AC Tidal Volume 450 POC PEEP 5 Sodium 152 H Potassium 4.4 Chloride 122 H Carbon Dioxide 25.0 Anion Gap 5 BUN 49 H Creatinine 1.58 H Estim Creat Clear Calc 20.72 Est GFR (MDRD) Af Amer 40 L Est GFR (MDRD) Non-Af 33 L BUN/Creatinine Ratio 31.0 H Glucose 110 H Calcium 8.2 L Phosphorus 3.3 Magnesium 2.5 Total Bilirubin 0.60 AST 59 H ALT 48 Alkaline Phosphatase 103 Total Creatine Kinase B-Natriuretic Peptide Total Protein 5.9 L Albumin 1.9 L Globulin 4.0 Albumin/Globulin Ratio 0.5 L Triglycerides COVID-19 (LYNETTE) 07/19/20 07/19/20 07/19/20 03:05 03:05 03:05 WBC 16.9 H RBC 3.35 L Hgb 9.4 L Hct 31.9 L MCV 95.2 MCH 28.1 MCHC 29.5 L RDW Std Deviation 62.3 H RDW Coeff of Silvano 18.3 H Plt Count 268 MPV 12.0 Immature Gran % (Auto) 1.000 H Neut % (Auto) 82.6 H Lymph % (Auto) 6.7 L [place] % (Auto) 2.6 Eos % (Auto) 6.7 H Baso % (Auto) 0.4 Absolute Neuts (auto) 14.0 H Absolute Lymphs (auto) 1.13 Nucleated RBC % 1.4 Specimen Type Sample Site pH Bicarbonate Actual Total CO2 Base Excess O2 Saturation O2 % ABG pCO2 ABG pO2 Jf Test Respiration Rate O2 Delivery Device Vent Mode Tidal Volume POC PEEP Sodium 142 Potassium 4.6 Chloride 113 H Carbon Dioxide 22.0 Anion Gap 7 BUN 33 H Creatinine 1.38 H Estim Creat Clear Calc 23.72 Est GFR (MDRD) Af Amer 47 L Est GFR (MDRD) Non-Af 39 L BUN/Creatinine Ratio 23.9 H Glucose 103 Calcium 8.0 L Phosphorus 2.6 Magnesium 2.4 Total Bilirubin 0.80 AST 92 H ALT 54 Alkaline Phosphatase 136 H Total Creatine Kinase B-Natriuretic Peptide Total Protein 5.9 L Albumin 1.8 L Globulin 4.1 Albumin/Globulin Ratio 0.4 L Triglycerides COVID-19 (LYNETTE) 07/19/20 06:03 WBC RBC Hgb Hct MCV MCH MCHC RDW Std Deviation RDW Coeff of Silvano Plt Count MPV Immature Gran % (Auto) Neut % (Auto) Lymph % (Auto) [place] % (Auto) Eos % (Auto) Baso % (Auto) Absolute Neuts (auto) Absolute Lymphs (auto) Nucleated RBC % Specimen Type ART Sample Site L Radial pH 7.42 Bicarbonate Actual 21.7 L Total CO2 23 Base Excess -3 L O2 Saturation 95 O2 % 40 ABG pCO2 33.5 L ABG pO2 74 L Jf Test Respiration Rate O2 Delivery Device Adult Vent Vent Mode CPAP/PS Tidal Volume POC PEEP Sodium Potassium Chloride Carbon Dioxide Anion Gap BUN Creatinine Estim Creat Clear Calc Est GFR (MDRD) Af Amer Est GFR (MDRD) Non-Af BUN/Creatinine Ratio Glucose Calcium Phosphorus Magnesium Total Bilirubin AST ALT Alkaline Phosphatase Total Creatine Kinase B-Natriuretic Peptide Total Protein Albumin Globulin Albumin/Globulin Ratio Triglycerides COVID-19 (LYNETTE) Microbiology 07/17/20 06:35 Urine Catheter - Catheter Urine Culture - Preliminary Culture exhibits no growth. Medical Necessity - Tobacco Use Smoking Status: Never smoker Assessment/Plan All Active Problems (Last Reviewed 03/30/20 @ 14:[address] Gary Bullard MD) Respiratory failure (Acute) Debility (Acute) RECOMMENDATIONS: 1. Wean oxygen as tolerated 2. Okay to discontinue IV fluids 3. Wean oxygen as tolerated 4. Treat fever symptomatically 5. Await results of family meeting 6. Could consider ceftriaxone IMPRESSIONS: 1. Acute on chronic hypoxic respiratory failure secondary to probable cor pulmonale/bronchiectasis Patient appears to be in pulmonary edema secondary to probable cor pulmonale from chronic hypoxia. Patient's EF shows significant depression compared to recent study. Patient does have an element of hypernatremia and hyperchloremia that may be adding to delirium. Patient was some hypotension this morning. Will discontinue IV fluids given concerns for oxygenation. Patient has not had increased endotracheal secretions or urinary sentiment. Patient was able to pass spontaneous breathing trial. Patient was extubated under my direct supervision. 2. Progressive dementia with failure to thrive Patient is on medical therapy at this time, but appears to have progressive decline over the course of weeks to months. Patient's CODE STATUS was reversed in the ER, but appears to be progressing with dementia. Patient has had very poor intake per dietitian. Unclear if patient is having acute delirium versus progression of dementia. Patient's mental status has reportedly been depressed for weeks. Patient reportedly is a DNR Comfort Care arrest without intubation at this time with a family meeting scheduled for later this morning for possible hospice versus palliative measures. 3. Acute on chronic combined CHF/paroxysmal A. fib/hypertension Patient's last echocardiogram in 2018 showed an EF of 35% with stage II diastolic dysfunction, but shows that there has been some progression with a current EF of 20% and a BNP of 1800. Patient has been difficult to control secondary to progressive renal dysfunction with diuretic therapy. Patient will be continued on current medications. Patient is on Eliquis therapy, so it is unlikely that pulmonary embolism is worsening pulmonary hypertension. 4. Central sleep apnea/hypothyroidism/depression/history of breast cancer/history of CVA/advanced age/debility Complicates care, management, recovery and prognosis. Central sleep apnea likely secondary to cardiac etiology. Patient will be continued on baseline medications. Poor prognosis from my perspective given decline. Will continue tube feeds to see if this will help. We will have to monitor for refeeding syndrome with aggressive electrolyte replacement as indicated. Patient appears to be hospice appropriate from my perspective 5. Acute kidney injury on chronic kidney disease stage III Some improvement with control of hypoxia. Hypernatremia and hyperchloremia have been addressed and are within normal limits. There is been no change in mental status. Urine output has been acceptable, but patient is gaining weight and has a positive fluid balance. Lasix may be required moving forward. 6. Sepsis secondary to probable sinusitis Patient with an NG in place for multiple days. Patient did develop fever and leukocytosis overnight. Patient could be treated with antibiotics, but typically removal of the NG is sufficient to allow for mobilization of secretions. Defer to hospitalist if ceftriaxone should be initiated given goals of therapy. Fever can be treated empirically. TIME: 38 minutes critical care time spent addressing patient's respiratory failure, CHF, review of all data and collaboration with care team (5:30 AM to 6:30 AM) [phone]: [id number] Critical care first hour
--- NOTE | 2020-07-19 08:08 | PCM.PN.CARD ---
Subjectve: Patient seen and evaluated. Recently extubated this morning. Objective: Vital Signs Temp Pulse Resp BP Pulse Ox 101.0 F H 88 20 H 94/57 L 94 07/19/20 07:00 07/19/20 07:00 07/19/20 07:00 07/19/20 07:00 07/19/20 07:00 Oxygen Flow Rate (L/min) 5 Oxygen Delivery Method Nasal Cannula Weight: 114 lb 6.719 oz Body Mass Index (BMI) 20.5 Intake and Output for Last 24 Hours 07/17/20 07/18/20 07/19/20 23:59 23:59 23:59 Intake Total 1893.77 / 1900.97 2119.82 / 2576.82 1108.96 / 1108.96 Output Total 900 / 900 825 / 925 210 / 210 Balance 993.77 / 1000.97 1294.82 / 1651.82 898.96 / 898.96 General: Awake, Non-Cooperative HEENT: PERRL, EOMI, Sclera Non Icteric Neck: Supple, Good ROM, No Lymph Node Enlargement Lungs: Diminished Micha Bases Cardiovascular: Irregular Rhythm, Normal S1, Normal S2, No Murmurs, No Rubs, No Gallops Vascular: No Carotid Bruits, Normal Femoral Pulses, Normal Radial Pulses, Normal Dorsalis Pedal Pulse, Normal Posterior Tibial Pulses Abdomen: Bowel Sounds Present, Soft, Non Tender, No HSM, No Organomegaly Extremities: No Cyanosis, No Clubbing, No edema Musculoskeletal: No Erythema Skin: No Rashes Neurological: No Focal Motor or Sensory Deficit 07/19/20 03:05: Phosphorus 2.6, Magnesium 2.4 07/19/20 03:05: WBC 16.9 H, RBC 3.35 L, Hgb 9.4 L, Hct 31.9 L, MCV 95.2, MCH 28.1, MCHC 29.5 L, Plt Count 268, MPV 12.0, Immature Gran % (Auto) 1.000 H, Neut % (Auto) 82.6 H, Lymph % (Auto) 6.7 L, [place] % (Auto) 2.6, Eos % (Auto) 6.7 H, Baso % (Auto) 0.4, Absolute Neuts (auto) 14.0 H, Nucleated RBC % 1.4 07/19/20 03:05: Sodium 142, Potassium 4.6, Chloride 113 H, Carbon Dioxide 22.0, Anion Gap 7, BUN 33 H, Creatinine 1.38 H, Est GFR (MDRD) Af Amer 47 L, Est GFR (MDRD) Non-Af 39 L, BUN/Creatinine Ratio 23.9 H, Glucose 103, Calcium 8.0 L, Total Bilirubin 0.80 07/19/20 06:03: pH 7.42, Bicarbonate Actual 21.7 L, Base Excess -3 L, O2 Saturation 95, ABG pCO2 33.5 L, ABG pO2 74 L Rhythm: EKG: ECHO: Stress Test: Cardiac Cath: PCI: CT Surgery: Holter monitor: EPS: PPM: CXR: Chest CT Scan: Medical Necessity - Tobacco Use Smoking Status: Never smoker Assessment/Plan 1. 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 There has been a further decline in her left ventricular ejection fraction. Her blood pressure has not allowed us to use TENA inhibitors or beta-blockers. We will therefore continue to judiciously use diuretics as appropriate. Her most recent ejection fraction was noted to be 20%. She has been successfully extubated. We will continue to monitor to see how she does. 2. Non-ischemic cardiomyopathy I42.8 Plan She does have evidence of nonischemic cardiomyopathy. Last ejection fraction was noted to be 20% with global hypokinesis. We will continue to observe this for now. 3. Essential (primary) hypertension I10 Plan Her blood pressure is low at the present time but she also has some sedation on board. She may be somewhat dehydrated but we are limited by the amount that we can hydrate her based on her left ventricular ejection fraction. 4. Paroxysmal atrial fibrillation I48.0 Plan She does have a history of paroxysmal atrial fibrillation however it does not appear that she has had any recent episodes she remains on the amiodarone. The carvedilol was discontinued due to her blood pressure being low. I have been in constant communication with her explaining our plan of action. It appears that with a significant decline in ejection fraction overall medium to long-term prognosis is rather guarded. I would therefore not recommend that we consider reintubating her. I did discuss this with her yesterday and he appears to be in agreement. Above has been discussed with the tank truck mechanic and the hospitalist as well. Thank you for allowing me to participate in the care of your patient. Please don't hesitate to call if any issues arise. .
--- NOTE | 2020-07-19 10:19 | CASEMGMT ---
AIDA was asked to call Hospice for referral. will talk with Hospice physician as family would like the Inpatient Hospice Unit. [facility] faxed referral and spoke with Letty at Hospice. She said Hospice physician is calling Dr Blank and she will be over in about 15 minutes to talk with patient's family. Jimena HAIRSTON MSW
--- NOTE | 2020-07-19 11:13 | DCINST_ITS ---
- Discharge Diagnoses Current Active Problems: Current Active and Chronic Problems (Last Reviewed 03/30/20 @ 14:[address] Gary Bullard MD) Respiratory failure (Acute) Allergies/Adverse Reactions: Allergies Penicillins [PCN] Allergy (Verified 07/17/20 07:09) Rash Medications to take at Discharge cyclobenzaprine 5 mg tablet 5 mg PO BID tab 05/30/19 Calcium Citrate/Vitamin D3 [Calcium Cit 315-Vit D3 200 Tab] 1 tab PO TIDCM 08/19/19 Cholecalciferol (Vitamin D3) [D3-2000] 2,000 unit PO DAILY 08/19/19 Levothyroxine Sodium [Levoxyl] 50 mcg PO DAILY 08/19/19 Memantine Hydrochloride [Namenda] 10 mg PO BID 08/19/19 amiodarone 200 mg tablet 200 mg PO DAILY #90 tab 09/26/19 aspirin 81 mg tablet,delayed release 81 mg PO DAILY 09/26/19 docusate sodium 100 mg capsule 200 mg PO DAILY cap 09/26/19 polyethylene glycol 3350 17 gram/dose oral powder 2.5 ml PO QHS PRN PRN 12/13/19 Apixaban [Eliquis] 2.5 mg PO BID 02/17/20 Cyanocobalamin [Vitamin B12] 1,000 mcg PO DAILY@0800 02/17/20 Dymista 1 puff NASAL BID PRN PRN 02/17/20 Psyllium [Metamucil] 10 ml PO DAILY 02/17/20 duloxetine 40 mg capsule,delayed release sprinkle 40 mg PO DAILY 03/30/20 Tramadol HCl 100 mg PO BID 06/15/20 Albuterol Aerosols [Ventolin Aerosols] 2.5 mg INHALATION Q2H PRN PRN vial.neb. 06/19/20 Furosemide [Lasix] 40 mg PO DAILY 06/19/20 Polyethylene Glycol 3350 [Miralax] 17 gm PO DAILY 06/19/20 Potassium Chloride [K-Dur] 40 meq PO DAILYCM 06/19/20 Azelastine HCl [Astelin] 1 spray NASAL BID PRN nasal.sry 07/05/20 Fluticasone 0.05% [Flonase Nasal [place]] 1 spray NASAL BID PRN nasal.sry 07/05/20 Peg 400/Hypromellose/Glycerin [Artificial Tears] 2 drp EACH EYE Q1H PRN bottle 07/05/20 Ensure Enlive 120 ml PO 4X/DAY 07/17/20 Menthol/Lanolin/Calamine/Znox [Calmoseptine Ointment] 1 applic TOPICAL 0600,2200 07/17/20 Mirtazapine [Remeron] 7.5 mg PO QHS 07/17/20 Primary Care Physician: Ben Loomis MD [Primary Care Provider] - Test Results: Test results from this visit will be discussed in further detail at your follow- up appointment, if applicable.
--- NOTE | 2020-07-19 11:33 | CASEMGMT ---
SW spoke with RN and Letty from Hospice arranged for patient to get picked up at 130 and taken to the Inpatient Hospice Unit. Jimena HAIRSTON MSW
--- NOTE | 2020-07-19 11:39 | DS.PCM_ITS ---
Discharge Date and Diagnosis - Problem List Patient Problems: Active and Suspected Problems (Last Reviewed 03/30/20 @ 14:[address] Gary Bullard MD) Respiratory failure (Acute) Date of Admission: 07/17/20 Date of Discharge: 07/19/20 - Primary Discharge Diagnosis Acute Problems: Active Problems (Last Reviewed 03/30/20 @ 14:[address] Gary Bullard MD) Respiratory failure (Acute) - Secondary Discharge Diagnosis Chronic Problems: Chronic Problems (Last Reviewed 03/30/20 @ 14:[address] Gayr Bullard MD) Encephalopathy (Chronic) Weakness (Chronic) Acute on chronic systolic (congestive) heart failure (Chronic) Alzheimer disease (Chronic) Atrial fibrillation (Chronic) Hypertension (Chronic) Breast cancer (Chronic) Hypothyroidism (Chronic) Hypokalemia (Chronic) Depression (Chronic) Acute on chronic combined systolic and d (Chronic) Failure to thrive (Chronic) Chronic combined systolic and diastolic CHF (congestive heart failure) (Chronic) Non-ischemic cardiomyopathy (Chronic) Paroxysmal atrial fibrillation (Chronic) Left bundle branch block (LBBB) (Chronic) Essential (primary) hypertension (Chronic) CVA (cerebral vascular accident) (Chronic) Expressive aphasia History of breast cancer (Chronic) 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 No gross change in bilateral infiltrates. at 0654 Reported and signed by: Sharon Roldan MD Electronically Signed: Sharon Roldan MD at 6:54 EDT Tel , Service support , Brain CT 07/17/20 06:33 IMPRESSION: No acute intracranial abnormality. Chronic involutional and white matter changes. Individualized dose optimization techniques were used for this CT. at 0744 Reported and signed by: Sharon Roldan MD Electronically Signed: Sharon Roldan MD at 7:44 EDT Tel , Service support , Echo: Interpretation Summary The study was technically difficult. Moderately dilated left ventricle. Severe global left ventricular systolic dysfunction. The estimated ejection fraction is 20 %. The left atrium is mildly enlarged. Mild diffuse mitral valve thickening. The mitral valve chordae are thickened and/or calcified. Mild-Moderate (1-2+) mitral valve insufficiency. Mild to moderate (1-2+) tricuspid valve insufficiency. Mild diffuse aortic valve thickening. Trivial aortic valve insufficiency. Right ventricular systolic pressure estimated to be 40 mmHg. Unable to assess diastolic dysfunction. Operations: None Procedures: 2-D Echocardiogram Summary of Care Provided: Per HPI: The patient is a 84 year old F with PMH as below who presents from home with a acute onset of hypoxia and altered mental status. Based on my evaluation she was already intubated so most of the information was obtained from chart review. She was recently admitted to the hospital and was transferred to the transitional care unit where the states that he was told she was doing well and was discharged home yesterday being able to walk. He states that what he found was when she came home she was unable to walk or take care of her self. Overnight she was wearing her CPAP and became acutely hypoxic which is when he brought her into the hospital. She was a DNR CCA however in discussion with the ED physician went ahead and intubated her as the felt that that would at least give us time to figure out why she was becoming hypoxic. She is anticoagulated on appropriate dose of Eliquis therefore does not seem that PE is likely. She does have recurrence of her bilateral pulmonary infiltrates which she had been evaluated for little over 2 years ago by deonna walter as an outpatient. At that time they had resolved. According to the , about 2 weeks ago while in the TCU she did have another spontaneous episode of acute hypoxia that resolved on its own. In the ER she was found to be hypoxic into the 70s and therefore was intubated, she was also found to be dehydrated with an elevated creatinine and hyponatremia to 159. Also her BNP was elevated though it is chronically elevated and I would expect it to be even more elevated secondary to her acute kidney disease. She has had 3 COVID tests within the last month all of which were negative. Hospital Course: 1. Acute hypoxic respiratory failure secondary to bronchiectasis and possible cor pulmonale/central obstructive sleep apnea/KALEN on CKD 3/hyponatremia/acute on chronic systolic and diastolic CHF/paroxysmal A. fib/HTN/HLD/history of CVA/dementia/depression/eiyczbebxcxwmf-36-yduo-old female who was recently in the hospital for a CHF exacerbation was discharged to TCU to undergo therapy, while at the TCU per the she had a hypoxic episode and had continued decline. They brought her home on Thursday and she did not do well. She was unable to get up and walk and she was noncommunicative and was not eating. They brought her into the hospital overnight Thursday into Thursday because of an episode of hypoxia while sleeping with her CPAP. She was found to be dehydrated with a creatinine of 2.08 and a sodium of 159. She was started on half-normal saline to slowly reduce her sodium which I did however she was transitioned to D5W for faster resolution, today she is 142 and her sodium. She did have a spontaneous breathing trial on Thursday which she passed however she was not extubated secondary to unsure goals of care. This morning she did pass her spontaneous breathing trial and she was extubated, and we had discussion for advanced care planning with both her and her daughter. We discussed the likelihood of recovery versus transition to hospice. The discussion was approximately 35 minutes in length and they expressed that they understood the likelihood of her having any meaningful recovery was low and therefore they would like her to be transferred to inpatient hospice. I discussed the case with the family practice medical doctor [facility] who did accept the patient in transfer to the inpatient unit. The family is in agreement with this decision. Part of the difficulty in her care has been a worsening in her cardiac function, she did have an echo which demonstrated an EF of 20% which is down from 35% less than a year ago. Also now it appears that she may have developed sepsis though there is an unclear source as overnight she did spike a temperature and this morning had a white count of 16. Cefepime and vancomycin were both ordered however these were not given secondary to a transitioning goals of care. Patient Problems: Active and Suspected Problems (Last Reviewed 03/30/20 @ 14:[address] Gary Bullard MD) Respiratory failure (Acute) - Physical Exam Vitals/I&O's: Vital Signs Temp Pulse Resp BP Pulse Ox 99.5 F H 81 14 83/53 L 98 07/19/20 10:00 07/19/20 10:00 07/19/20 10:00 07/19/20 10:00 07/19/20 10:00 Oxygen Flow Rate (L/min) 5 Oxygen Delivery Method Nasal Cannula Weight: 114 lb 6.719 oz Body Mass Index (BMI) 20.5 Intake and Output for Last 24 Hours 07/17/20 07/18/20 07/19/20 23:59 23:59 23:59 Intake Total 1893.77 / 1900.97 2119.82 / 2576.82 1108.96 / 1108.96 Output Total 900 / 900 825 / 925 255 / 255 Balance 993.77 / 1000.97 1294.82 / 1651.82 853.96 / 853.96 General: Extubated, not sedated, not responding to stimuli other than grimace. Will not open eyes will not respond to command HEENT: Atraumatic, PERRLA, Normocephalic Oral: Moist mucosa Neck: Supple, No JVD Lungs: No wheeze, No rales, Diminished, Rhonchi Cardiovascular: Regular rate, Regular Rhythm, Normal S1, Normal S2, No murmurs Abdomen: Soft, Non-Distended, No Hepato-splenomegaly Extremities: No edema, Capillary Refill Less than 3 Seconds Skin: No rashes, No breakdown Neurological: She does move all 4 limbs randomly and her neuro is grossly intact though is not cooperative with exam Psych/Mental Status: Flat affect, restless Microbiology Past 72 Hours 07/17/20 06:35 Urine Catheter - Catheter Urine Culture - Preliminary Alpha hemolytic organism Laboratory Results 07/19/20 03:05: Phosphorus 2.6, Magnesium 2.4 07/19/20 03:05: WBC 16.9 H, RBC 3.35 L, Hgb 9.4 L, Hct 31.9 L, MCV 95.2, MCH 28.1, MCHC 29.5 L, RDW Std Deviation 62.3 H, RDW Coeff of Silvano 18.3 H, Plt Count 268, MPV 12.0, Immature Gran % (Auto) 1.000 H, Neut % (Auto) 82.6 H, Lymph % (Auto) 6.7 L, [place] % (Auto) 2.6, Eos % (Auto) 6.7 H, Baso % (Auto) 0.4, Absolute Neuts (auto) 14.0 H, Absolute Lymphs (auto) 1.13, Nucleated RBC % 1.4 07/19/20 03:05: Sodium 142, Potassium 4.6, Chloride 113 H, Carbon Dioxide 22.0, Anion Gap 7, BUN 33 H, Creatinine 1.38 H, Estim Creat Clear Calc 23.72, Est GFR (MDRD) Af Amer 47 L, Est GFR (MDRD) Non-Af 39 L, BUN/Creatinine Ratio 23.9 H, Glucose 103, Calcium 8.0 L, Total Bilirubin 0.80, AST 92 H, ALT 54, Alkaline Phosphatase 136 H, Total Protein 5.9 L, Albumin 1.8 L, Globulin 4.1, Albumin/Globulin Ratio 0.4 L 07/19/20 06:03: Specimen Type ART, Sample Site L Radial, pH 7.42, Bicarbonate Actual 21.7 L, Total CO2 23, Base Excess -3 L, O2 Saturation 95, O2 % 40, ABG pCO2 33.5 L, ABG pO2 74 L, O2 Delivery Device Adult Vent, Vent Mode CPAP/PS Current Medications Acetaminophen (Tylenol Liquid) 650 mg PO Q4H PRN PRN PRN Reason: Pain (1-10) or Fever Last Admin: 07/19/20 06:27 Dose: 650 mg Documented by: Acetaminophen (Tylenol) 650 mg RECTAL Q4H PRN PRN PRN Reason: Pain (1-10) or Fever Amiodarone HCl (Cordarone) 200 mg PO DAILY [facility] Last Admin: 07/19/20 06:47 Dose: Not Given Documented by: Apixaban (Eliquis) 2.5 mg PO BID [facility] Last Admin: 07/19/20 06:18 Dose: 2.5 mg Documented by: Aspirin (Ecotrin) 81 mg PO DAILY@0800 [facility] Last Admin: 07/19/20 06:28 Dose: Not Given Documented by: Chlorhexidine Gluconate () 15 ml PO BID [facility] Last Admin: 07/18/20 21:24 Dose: 15 ml Documented by: Docusate Sodium (Colace) 200 mg PO DAILY [facility] Last Admin: 07/19/20 06:29 Dose: Not Given Documented by: Duloxetine HCl (Cymbalta) 40 mg PO DAILY [facility] Last Admin: 07/19/20 06:29 Dose: Not Given Documented by: Famotidine (Pepcid) 20 mg PO DAILY [facility] Last Admin: 07/19/20 06:18 Dose: 20 mg Documented by: Sodium Chloride () 250 mls @ 15 mls/hr IV .[id number] PRN PRN Reason: Saline Flush Sodium Chloride () 250 mls @ 15 mls/hr IV .[id number] PRN PRN Reason: Additional IVPB Infusion Cefepime HCl 1 gm/ Sodium (Chloride) 50 mls @ 100 mls/hr IV Q24 [facility] Vancomycin IV Pharmacy to Dose (1 ea/ Sodium Chloride) 500 mls @ 250 mls/hr IV X1 PRN; Protocol PRN Reason: Rx to Dose Levothyroxine Sodium (Synthroid) 50 mcg PO DAILY@0600 [facility] Last Admin: 07/19/20 05:07 Dose: 50 mcg Documented by: Memantine (Namenda) 10 mg PO BID [facility] Last Admin: 07/19/20 06:18 Dose: 10 mg Documented by: Mirtazapine (Remeron) 7.5 mg PO QHS [facility] Last Admin: 07/18/20 21:24 Dose: 7.5 mg Documented by: Sodium Chloride () 10 - 40 ml IV UD PRN PRN Reason: SALINE FLUSH Last Admin: 07/18/20 05:19 Dose: 10 ml Documented by: Home Medications: Medications to take at Discharge cyclobenzaprine 5 mg tablet 5 mg PO BID tab 05/30/19 Calcium Citrate/Vitamin D3 [Calcium Cit 315-Vit D3 200 Tab] 1 tab PO TIDCM 08/19/19 Cholecalciferol (Vitamin D3) [D3-2000] 2,000 unit PO DAILY 08/19/19 Levothyroxine Sodium [Levoxyl] 50 mcg PO DAILY 08/19/19 Memantine Hydrochloride [Namenda] 10 mg PO BID 08/19/19 amiodarone 200 mg tablet 200 mg PO DAILY #90 tab 09/26/19 aspirin 81 mg tablet,delayed release 81 mg PO DAILY 09/26/19 docusate sodium 100 mg capsule 200 mg PO DAILY cap 09/26/19 polyethylene glycol 3350 17 gram/dose oral powder 2.5 ml PO QHS PRN PRN 12/13/19 Apixaban [Eliquis] 2.5 mg PO BID 02/17/20 Cyanocobalamin [Vitamin B12] 1,000 mcg PO DAILY@0800 02/17/20 Dymista 1 puff NASAL BID PRN PRN 02/17/20 Psyllium [Metamucil] 10 ml PO DAILY 02/17/20 duloxetine 40 mg capsule,delayed release sprinkle 40 mg PO DAILY 03/30/20 Tramadol HCl 100 mg PO BID 06/15/20 Albuterol Aerosols [Ventolin Aerosols] 2.5 mg INHALATION Q2H PRN PRN vial.neb. 06/19/20 Furosemide [Lasix] 40 mg PO DAILY 06/19/20 Polyethylene Glycol 3350 [Miralax] 17 gm PO DAILY 06/19/20 Potassium Chloride [K-Dur] 40 meq PO DAILYCM 06/19/20 Azelastine HCl [Astelin] 1 spray NASAL BID PRN nasal.sry 07/05/20 Fluticasone 0.05% [Flonase Nasal [place]] 1 spray NASAL BID PRN nasal.sry 07/05/20 Peg 400/Hypromellose/Glycerin [Artificial Tears] 2 drp EACH EYE Q1H PRN bottle 07/05/20 Ensure Enlive 120 ml PO 4X/DAY 07/17/20 Menthol/Lanolin/Calamine/Znox [Calmoseptine Ointment] 1 applic TOPICAL 0600,2200 07/17/20 Mirtazapine [Remeron] 7.5 mg PO QHS 07/17/20 Primary Care Physician: Ben Loomis MD [Primary Care Provider] - Disposition: Hospice Medical Facility Minutes spent on discharge:: 35 Medical Necessity - Tobacco Use Smoking Status: Never smoker Meaningful Use Info Meaningful Use Diagnoses (Choose all that apply): None applicable Inpatient E&M: 68861 Disch Hosp Procedures: 80747 Advncd Care Plan 30 Min
== END 2020-07-19 13:40 | disposition hospice, inpatient (51) | DRG 208 ==
LOC: ED 06:49 → ICU 10:40
PROVIDERS: Internal Medicine Critical Care Medicine; Admitting Provider Family Medicine; Emergency Provider Student in an Organized Health Care Education/Training Program; PCP Internal Medicine; Visit Provider Family Medicine
DX: J96.21 Acute and chronic respiratory failure with hypoxia (principal); I50.43 Acute on chronic combined systolic (congestive) and diastolic (congestive) heart failure; A41.9 Sepsis, unspecified organism; E43 Unspecified severe protein-calorie malnutrition; N17.9 Acute kidney failure, unspecified; I13.0 Hypertensive heart and chronic kidney disease with heart failure and stage 1 through stage 4 chronic kidney disease, or unspecified chronic kidney disease; G93.40 Encephalopathy, unspecified; R47.01 Aphasia; I42.8 Other cardiomyopathies; Z68.1 Body mass index [BMI] 19.9 or less, adult; E87.0 Hyperosmolality and hypernatremia; J47.9 Bronchiectasis, uncomplicated; I27.81 Cor pulmonale (chronic); G47.31 Primary central sleep apnea; E03.9 Hypothyroidism, unspecified; F32.9 Major depressive disorder, single episode, unspecified; N18.3 Chronic kidney disease, stage 3 (moderate); I48.0 Paroxysmal atrial fibrillation; E78.5 Hyperlipidemia, unspecified; E86.0 Dehydration; G30.9 Alzheimer's disease, unspecified; F02.80 Dementia in other diseases classified elsewhere, unspecified severity, without behavioral disturbance, psychotic disturbance, mood disturbance, and anxiety; R62.7 Adult failure to thrive; R53.1 Weakness; E87.6 Hypokalemia; E87.8 Other disorders of electrolyte and fluid balance, not elsewhere classified; I44.7 Left bundle-branch block, unspecified; I69.320 Aphasia following cerebral infarction; R53.81 Other malaise; Z66 Do not resuscitate; Z85.3 Personal history of malignant neoplasm of breast; Z90.11 Acquired absence of right breast and nipple; Z79.01 Long term (current) use of anticoagulants; Z79.82 Long term (current) use of aspirin; Z79.890 Hormone replacement therapy; Z79.899 Other long term (current) drug therapy
CPT/HCPCS: 31500; 31720; 36600; 51702; 70450; 71045; 80053; 81001; 82550; 82803; 83605; 83735; 83880; 84100; 84478; 85025; 85610; 85730; 87040; 87077; 87086; 87088; 87635; 93005; 93306; 94002; 94003; 94660; 97162; 97166; 97802; 97803; 99251; 99285; C9803; J7030; A4216; G0463; J3010; U0003